=== PATIENT | female | born 1945 | race Caucasian/White ===

== ENCOUNTER 2018-03-14 18:56 | Inpatient (IN) | payer BC, MEDICARE ==
[2018-03-14] MEDS ORDERED: NITROGLYCERIN-D5W PMX 50 MG in DEXTROSE/WATER 1 250ML.BAG IV ONE (19:06)
--- NOTE | 2018-03-14 19:14 | ED ---
General Adult HPI - General Stated complaint: Chest Pain Time Seen by Provider: 03/14/18 19:06 Source: patient, RN notes reviewed Mode of arrival: ambulatory Limitations: no limitations - History of Present Illness Initial comments: This is a 72-year-old female presents emergency department via EMS from [facility] for chest pain. Patient states she developed chest pain while shopping earlier today states that she did not feel well states the pain radiated to her back. Patient does have a history of a stent and SD. Patient states that she does have hyperlipidemia, diabetes and hypertension. Patient was seen at [facility] had CT of her chest abdomen there is no evidence of dissection. Patient was given Rocephin for urinary tract infection was given heparin. Patient was given sublingual nitro though her pressure dropped down to systolic 110, and patient was placed on nitro paste at this time. Patient's found to be hypertensive 07 nitro drip. Patient denies any shortness but has some mild discomfort. Patient also negative feel dizzy earlier today. - Related Data Home Medications Medication Instructions Recorded Confirmed Aspirin 81 mg PO DAILY 01/31/14 01/01/16 Clopidogrel [Plavix] 75 mg PO DAILY 01/31/14 01/01/16 Ergocalciferol [Vitamin D2 50,000 units PO Q30D 01/31/14 12/30/15 (DRISDOL)] Ezetimibe [Zetia] 10 mg PO DAILY 01/31/14 01/01/16 Glimepiride [Amaryl] 2 mg PO DAILY 01/31/14 01/01/16 Hydrochlorothiazide [Hydrodiuril] 25 mg PO DAILY 01/31/14 01/01/16 Levothyroxine Sodium [Synthroid] 125 mcg PO PC-BRKFST 01/31/14 01/01/16 Liraglutide [Victoza 2-Luiz] 1.8 mg SQ PC-BRKFST 01/31/14 01/01/16 Lisinopril 40 mg PO DAILY 01/31/14 01/01/16 Metoprolol Succinate [Toprol XL] 100 mg PO DAILY 01/31/14 01/01/16 Rosuvastatin [Crestor] 20 mg PO DAILY 01/31/14 01/01/16 Dapagliflozin Propanediol [Farxiga] 10 mg PO DAILY 11/19/15 01/01/16 Furosemide [Lasix] 10 mg PO DAILY 12/30/15 01/01/16 metFORMIN HCL [Glucophage] 500 mg PO BID 12/30/15 12/30/15 Allergies Allergy/AdvReac Type Severity Reaction Status Date / Time hydromorphone HCl Allergy RESPIRATORY Verified 03/14/18 19:49 [From Dilaudid] DEPRESSION Review of Systems ROS Statement: Those systems with pertinent positive or pertinent negative responses have been documented in the HPI. ROS Other: All systems not noted in ROS Statement are negative. Past Medical History Past Medical History: Diabetes Mellitus, Hyperlipidemia, Hypertension, Myocardial Infarction (non Q-wave), Osteoarthritis (OA), Thyroid Disorder, Vascular Disorder Additional Past Medical History / Comment(s): 2000HX ASHD, pad,intermittent claudication involving infra renal aorta and rt and lt common iliac arteries( had stents palced). HX NUMBNESS NIRAV FEET- RT IS WORSE , CATARACTS, Last Myocardial Infarction Date:: 2000 History of Any Multi-Drug Resistant Organisms: None Reported Past Surgical History: Adenoidectomy, Heart Catheterization With Stent, Tonsillectomy, Tubal Ligation Additional Past Surgical History / Comment(s): EXP. LAP 02/2012, STENT TO HEART X1, INFRARENAL AORTA STENT, STENTS TO RIGHT AND LEFT COMMONI ILLIAC ARTERIES. AORTOGRAM WITH RUNOFF 02/02/14 @ [facility] Past Anesthesia/Blood Transfusion Reactions: No Reported Reaction Date of Last Stent Placement:: 2000 Smoking Status: Former smoker - Past Family History Mother Family Medical History: Dementia Additional Family Medical History / Comment(s): HEART PROBLEMS Father Family Medical History: Coronary Artery Disease (CAD), Myocardial Infarction (SD ) General Exam General appearance: alert, in no apparent distress Head exam: Present: atraumatic, normocephalic, normal inspection Eye exam: Present: normal appearance, PERRL, EOMI. Absent: scleral icterus, conjunctival injection, periorbital swelling Respiratory exam: Present: normal lung sounds bilaterally. Absent: respiratory distress, wheezes, rales, rhonchi, stridor Cardiovascular Exam: Present: regular rate, normal rhythm, normal heart sounds. Absent: systolic murmur, diastolic murmur, rubs, gallop, clicks GI/Abdominal exam: Present: soft, normal bowel sounds. Absent: distended, tenderness, guarding, rebound, rigid Course Vital Signs 03/14/1818 18 19:06 19:12 19:42 Temperature 98.3 F Pulse Rate 95 97 98 Respiratory 18 18 18 Rate Blood Pressure 224/91 200/83 161/74 O2 Sat by Pulse 97 95 96 Oximetry Medical Decision Making - Medical Decision Making 72-year-old female percent for transfer for chest pain. Patient will be admitted on heparin and nitro drip and will be scheduled for cardiac cath. Disposition Clinical Impression: Unstable angina, Hypertension Disposition: ADMITTED IP TO THIS HOSP Condition: Stable Time of Disposition: 19:14
[2018-03-14] MEDS ORDERED: HEPARIN SODIUM,PORCINE/D5W PMX 25,000 UNIT in DEXTROSE/WATER 1 500ML.BAG IV SCH (19:15)
[2018-03-14 21:02] LABS: Glucose,Whole Blood 158 mg/dL (75-99)
[2018-03-14 21:29] LABS: Creatine Kinase 29 U/L (30-135)
[2018-03-14 21:41] LABS: Creatine Kinase MB <0.2 ng/mL (0.0-2.4); Troponin I <0.012 ng/mL (0.000-0.034)
[2018-03-15 03:58] LABS: HCT 32.6 % (34.0-46.0); HGB 10.9 gm/dL (11.4-16.0); MCH 28.9 pg (25.0-35.0); MCHC 33.4 g/dL (31.0-37.0); MCV 86.3 fL (80.0-100.0); Mean Platelet Volume 6.7; Platelet Count 236 k/uL (150-450); RBC 3.78 m/uL (3.80-5.40); RDW 13.6 % (11.5-15.5); WBC 7.3 k/uL (3.8-10.6)
[2018-03-15 04:27] LABS: Creatine Kinase 27 U/L (30-135)
[2018-03-15 04:29] LABS: Calcium 9.1 mg/dL (8.4-10.2); Potassium 4.4 mmol/L (3.5-5.1)
[2018-03-15 04:36] LABS: Creatine Kinase MB <0.2 ng/mL (0.0-2.4); Troponin I <0.012 ng/mL (0.000-0.034)
[2018-03-15] MEDS ORDERED: ASPIRIN 325 MG TAB PO SCH (09:00)
[2018-03-15] MEDS ORDERED: ATORVASTATIN 80 MG TAB PO STA (09:15)
[2018-03-15] MEDS ORDERED: NITROGLYCERIN SL TABS 0.4 MG TAB SUBLINGUAL PRN (09:15)
[2018-03-15] MEDS ORDERED: ALPRAZolam 0.25 MG TAB PO PRN (09:15)
[2018-03-15] MEDS ORDERED: SODIUM CHLORIDE 0.9% 1,000 ML in EMPTY BAG 1 BAG IV ONE (09:15)
[2018-03-15] MEDS ORDERED: ASPIRIN 325 MG TAB PO STA (09:15)
[2018-03-15] MEDS ORDERED: ALPRAZolam 0.5 MG TAB PO PRN (09:15)
--- NOTE | 2018-03-15 09:23 | P.HPCAR ---
History of Present Illness H&P Date: 03/15/18 Chief Complaint: Chest pain This is a pleasant 72-year-old female with history of diabetes, hypertension, hyperlipidemia, hypothyroidism, inferior OH in 2001 at which time she underwent RCA stenting, peripheral vascular disease with bilateral severe aortic iliac stenosis for which patient underwent arthrectomy of the left SFA, successful balloon angioplasty of the left SFA in October 2015, patient also underwent balloon angioplasty of the right SFA with successful stenting of the right SFA with good angiographic results. She follows with Dr. VC Flores in the office. Patient presented to [facility] with symptoms of chest discomfort. She states that she developed a sharp pain in the left side of her chest, but also had a significant heaviness which radiated through to her back. She was out shopping, on returning home she did a few errands, symptoms again returned and for this reason she presented to [facility]. EKG on presentation showed a sinus tachycardia with nonspecific ST-T wave changes, chest x-ray did not reveal any acute changes. CT of the chest was also performed which did not reveal any evidence of aortic dissection, intramural hematoma, aortic aneurysm or PE, severe atherosclerosis of the abdominal aorta and its branches, possible fibrosis. White blood cell count 8.9 , hemoglobin 12.1, platelet count 254. She possibly sodium 133, potassium 4.4, BUN 26, creatinine 0.9, magnesium 1.1, troponin 0.03, free T4 2.8. EKG on arrival here shows a normal sinus rhythm with nonspecific ST-T wave changes noted in the inferior leads. White blood cell count 7.3, hemoglobin 10.9, platelet count 236. Sodium 136, potassium 4.4, BUN 23, creatinine 0.9. Troponins here have been negative 2. Cholesterol 152, triglycerides 121, LDL 89, HDL 39. At the time of my examination this morning, she is currently chest pain-free. On IV heparin and IV nitroglycerin drip. Her home medications include 6 toes, study at 10 mg daily, hydrochlorothiazide, lisinopril 40 daily, Synthroid 125 g daily, Plavix 75 mg daily, metoprolol 100 daily, aspirin 81 mg daily, metformin 500 mg twice a day, glimepiride and Lipitor 40 mg daily. Physical Exam Vitals: Vital Signs Temp Pulse Pulse Resp BP BP Pulse Ox 03/15/18 07:43 98.2 F 97 16 130/67 97 03/15/18 04:00 97.1 F L 94 16 106/64 96 03/15/18 00:00 98.1 F 104 H 16 139/66 94 L 03/14/18 20:16 98 18 146/68 96 03/14/18 20:07 98.1 F 95 16 135/65 95 03/14/18 19:42 98 18 161/74 96 03/14/18 19:14 95 03/14/18 19:12 97 18 200/83 95 03/14/18 19:06 98.3 F 95 18 224/91 97 Intake and Output 03/14/18 03/15/18 03/15/18 22:59 06:59 14:59 Intake Total 360 217.991 Balance 360 217.991 Intake: Intake, IV Titration 217.991 Amount Heparin Sodium,Porcine/ 217.991 D5w Pmx 25,000 unit In Dextrose/Water 1 500ml. bag @ 12 UNITS/KG/HR 19. 15 mls/hr IV .Q24H [facility] Rx #:[id number] Oral 360 Other: # Voids 1 Weight 79.2 kg 79.2 kg PHYSICAL EXAMINATION: GENERAL: 72-year-old female in no apparent distress at the time of my examination HEENT: Head is atraumatic, normocephalic. Pupils equal, round. Sclera anicteric. Conjunctiva are clear. Mucous membranes of the mouth are moist. Neck is supple. There is no elevated jugular venous pressure.] bruit is heard. HEART EXAMINATION: Heart S1, S2 normal. No murmur or gallop heard. CHEST EXAMINATION: Lungs are clear to auscultation and precussion. No chest wall tenderness is noted on palpation or with deep breathing. ABDOMEN: Soft, nontender. Bowel sounds are heard. No organomegaly noted. EXTREMITIES: 1+ peripheral pulses with no evidence of peripheral edema and no calf tenderness noted. NEUROLOGIC patient is awake, alert and oriented -3. . Past Medical History Past Medical History: Chest Pain / Angina, Diabetes Mellitus, Hyperlipidemia, Hypertension, Myocardial Infarction (non Q-wave), Osteoarthritis (OA), Thyroid Disorder, Vascular Disorder Additional Past Medical History / Comment(s): 2000 HX ASHD, pad, intermittent claudication involving infra renal aorta and rt and lt common iliac arteries ( had stents palced), bilat cataracts, glaucoma L eye with stent. Last Myocardial Infarction Date:: 2000 History of Any Multi-Drug Resistant Organisms: None Reported Past Surgical History: Adenoidectomy, Heart Catheterization With Stent, Tonsillectomy, Tubal Ligation Additional Past Surgical History / Comment(s): EXP. LAP 02/2012, STENT TO HEART X1, INFRARENAL AORTA STENT, STENTS TO RIGHT AND LEFT COMMONI ILLIAC ARTERIES. AORTOGRAM WITH RUNOFF 02/02/14 @ [facility] Past Anesthesia/Blood Transfusion Reactions: No Reported Reaction Additional Past Anesthesia/Blood Transfusion Reaction / Comment(s): pt states she has never had a blood transfusion Date of Last Stent Placement:: 2000 Past Psychological History: No Psychological Hx Reported Smoking Status: Former smoker Past Alcohol Use History: Occasional Additional Past Alcohol Use History / Comment(s): STARTED SMOKING AGE 28 (1964) , QUIT 2003, SMOKED 2PPD Past Drug Use History: None Reported - Past Family History Mother Family Medical History: Dementia Additional Family Medical History / Comment(s): HEART PROBLEMS Father Family Medical History: Coronary Artery Disease (CAD), Myocardial Infarction (OH ) Physical Examination Vital Signs Temp Pulse Pulse Resp BP BP Pulse Ox 03/15/18 07:43 98.2 F 97 16 130/67 97 03/15/18 04:00 97.1 F L 94 16 106/64 96 03/15/18 00:00 98.1 F 104 H 16 139/66 94 L 03/14/18 20:16 98 18 146/68 96 03/14/18 20:07 98.1 F 95 16 135/65 95 03/14/18 19:42 98 18 161/74 96 03/14/18 19:14 95 03/14/18 19:12 97 18 200/83 95 03/14/18 19:06 98.3 F 95 18 224/91 97 Intake and Output 03/14/18 03/15/18 03/15/18 22:59 06:59 14:59 Intake Total 360 217.991 Balance 360 217.991 Intake: Intake, IV Titration 217.991 Amount Heparin Sodium,Porcine/ 217.991 D5w Pmx 25,000 unit In Dextrose/Water 1 500ml. bag @ 12 UNITS/KG/HR 19. 15 mls/hr IV .Q24H [facility] Rx #:[id number] Oral 360 Other: # Voids 1 Weight 79.2 kg 79.2 kg Results 03/15/18 03:32 03/15/18 03:32 Cardiac Enzymes 03/14/18 03/15/18 Range/Units 20:58 03:32 CK-MB (CK-2) <0.2 <0.2 (0.0-2.4) ng/mL Troponin I <0.012 <0.012 (0.000-0.034) ng/mL Coagulation 03/14/18 03/15/18 Range/Units 22:32 06:02 APTT 51.6 H 42.7 H (22.0-30.0) sec Lipids 03/15/18 Range/Units 03:32 Triglycerides 121 (<150) mg/dL Cholesterol 152 (<200) mg/dL HDL Cholesterol 39 L (40-60) mg/dL CBC 03/15/18 Range/Units 03:32 WBC 7.3 (3.8-10.6) k/uL RBC 3.78 L (3.80-5.40) m/uL Hgb 10.9 L (11.4-16.0) gm/dL Hct 32.6 L (34.0-46.0) % Plt Count 236 (150-450) k/uL Comprehensive Metabolic Panel 03/15/18 Range/Units 03:32 Sodium 136 L (137-145) mmol/L Potassium 4.4 (3.5-5.1) mmol/L Chloride 103 (98-107) mmol/L Carbon Dioxide 23 (22-30) mmol/L BUN 23 H (7-17) mg/dL Creatinine 0.90 (0.52-1.04) mg/dL Glucose 199 H (74-99) mg/dL Calcium 9.1 (8.4-10.2) mg/dL Current Medications Generic Name Dose Route Start Last Admin Trade Name Freq PRN Reason Stop Dose Admin Aspirin 325 mg 03/15/18 09:00 Aspirin PO DAILY ANGELICA Heparin Sodium/Dextrose 25,000 500 mls @ 19.15 mls/hr 03/14/18 19:15 07:03 unit/ IV Solution IV 14 units/kg/hr .Q24H ANGELICA 22.35 mls/hr Protocol Titration 12 UNITS/KG/HR Nitroglycerin/Dextrose 50 mg/ 250 mls @ 3 mls/hr 03/14/18 19:06 03/14/18 19: 21 IV Solution IV 03/15/18 19:05 10 mcg/min .Q24H ONE 3 mls/hr Protocol Administration 10 MCG/MIN Intake and Output 03/14/18 03/15/18 03/15/18 22:59 06:59 14:59 Intake Total 360 217.991 Balance 360 217.991 Intake: Intake, IV Titration 217.991 Amount Heparin Sodium,Porcine/ 217.991 D5w Pmx 25,000 unit In Dextrose/Water 1 500ml. bag @ 12 UNITS/KG/HR 19. 15 mls/hr IV .Q24H [facility] Rx #:[id number] Oral 360 Other: # Voids 1 Weight 79.2 kg 79.2 kg 03/15/18 03:32 03/15/18 03:32 EKG Interpretations (text) EKG shows normal sinus rhythm with nonspecific ST-T wave changes in the inferior leads. Assessment and Plan Assessment: Assessment and plan #1 chest discomfort with radiation to the back suggestive of possible angina. Troponins negative 3. EKG shows normal sinus rhythm with nonspecific ST-T wave changes in the inferior leads. #2 known history of coronary artery disease with prior inferior wall myocardial infarction in 2001 with stenting of the RCA #3 peripheral vascular disease with prior stenting #4 hypertension # 5 diabetes #6 hyperlipidemia #7 prior history of nicotine dependence Plan We will obtain an echocardiogram with Doppler study. Continue IV heparin and nitroglycerin drips. We will resume the patient's home medications. Patient will be scheduled to undergo cardiac catheterization today by Dr. Arreguin. The risks and the benefits were explained to the patient in detail and she is willing to proceed. Further recommendations will be based on these findings and the patient's clinical course. DNP note has been reviewed, I agree with a documented findings and plan of care. Patient was seen and examined.
[2018-03-15] MEDS ORDERED: ERGOCALCIFEROL 50,000 UNIT CAP PO SCH (09:30)
[2018-03-15] MEDS ORDERED: Liraglutide [Victoza 2-Pak] 1.8 MG SQ SCH (09:30)
[2018-03-15] MEDS: LEVOTHYROXINE 125 MCG TAB PO SCH (09:59)
[2018-03-15] MEDS: METOPROLOL SUCCINATE (ER) 100 MG TAB.ER.24H PO SCH (10:00)
[2018-03-15] MEDS: LISINOPRIL 20 MG TAB PO SCH (10:00)
[2018-03-15 10:51] LABS: Glucose,Whole Blood 221 mg/dL (75-99)
--- NOTE | 2018-03-15 13:08 | ECHOF ---
Referral Reason:chest pain MEASUREMENTS -------- HEIGHT: 157.5 cm WEIGHT: 78.9 kg BP: IVSd: 1.3 cm (0.6 - 1.1) LVIDd: 2.9 cm (3.9 - 5.3) LVPWd: 1.2 cm (0.6 - 1.1) IVSs: 1.6 cm LVIDs: 1.8 cm LVPWs: 1.6 cm Ao Diam: 2.9 cm (2.0 - 3.7) AV Cusp: 1.0 cm (1.5 - 2.6) LA Diam: 3.4 cm (2.7 - 3.8) MV E Bennie: 1.02 m/s MV DecT: 112 ms MV A Bennie: 1.65 m/s MV E/A Ratio: 0.62 AV maxP.27 mmHg AV meanP.81 mmHg RAP: 5.00 mmHg RVSP: 13.77 mmHg FINDINGS -------- Sinus rhythm. This was a technically adequate study. The left ventricular size is normal. There is mild concentric left ventricular hypertrophy. Overa ll left ventricular systolic function is normal with, an EF between 55 - 60 %. The right ventricle is normal in size and function. The left atrium is normal in size. The right atrium is normal in size. Aortic valve is trileaflet and is mildly thickened. There is mild aortic stenosis present. Peak/m kleber gradient across the Aortic Valve is 17.27mmHg / 11.81mmHg. The mitral valve leaflets are mildly thickened. Mild mitral regurgitation is present. Mild tricuspid regurgitation present. The right ventricular systolic pressure, as measured by Doppl er, is 13.77mmHg. Pulmonic valve appears structurally normal. Normal inferior vena cava with normal inspiratory collapse consistent with estimated right atrial pre ssure of 5 mmHg. The pericardium is normal. CONCLUSIONS -------- 1. Sinus rhythm. 2. This was a technically adequate study. 3. The left ventricular size is normal. 4. There is mild concentric left ventricular hypertrophy. 5. Overall left ventricular systolic function is normal with, an EF between 55 - 60 %. 6. The right ventricle is normal in size and function. 7. The left atrium is normal in size. 8. The right atrium is normal in size. 9. Aortic valve is trileaflet and is mildly thickened. 10. There is mild aortic stenosis present. 11. Peak/mean gradient across the Aortic Valve is 17.27mmHg / 11.81mmHg. 12. The mitral valve leaflets are mildly thickened. 13. Mild mitral regurgitation is present. 14. Mild tricuspid regurgitation present. 15. The right ventricular systolic pressure, as measured by Doppler, is 13.77mmHg. 16. Pulmonic valve appears structurally normal. 17. Normal inferior vena cava with normal inspiratory collapse consistent with estimated right atrial pressure of 5 mmHg. 18. The pericardium is normal. PARKING WORKER: Ann Sanderson RDCS
[2018-03-15] MEDS ORDERED: FLUID CONTINUATION IV ONE ×2 (13:15)
[2018-03-15] MEDS ORDERED: NITROGLYCERIN D5W PMX IV ONE ×2 (13:15)
[2018-03-15] MEDS ORDERED: IV FLUID CONTINUATION 1,000 ML IV ONE (13:24)
[2018-03-15] MEDS ORDERED: MIDAZOLAM 2 MG/2 ML VIAL IV ONE (13:30)
[2018-03-15] MEDS ORDERED: VERAPAMIL SYRINGE (5 MG/10 ML) INTRAARTER ONE (13:36)
[2018-03-15] MEDS ORDERED: LIDOCAINE 2% SYG (PF) 100 MG/5 ML MISCELLANE ONE (13:36)
[2018-03-15] MEDS ORDERED: HEPARIN SODIUM 1,000 UN/ML (10ML VL) IV ONE (13:37)
[2018-03-15] MEDS ORDERED: IOPAMIDOL-370 125ML BTL INJ ONE (13:53)
[2018-03-15] MEDS ORDERED: RX INFO: IV CONTRAST WAS GIVEN 1 EACH MISC MISCELLANE PRN (13:54)
[2018-03-15] MEDS ORDERED: SODIUM CHLORIDE 0.9% 500 ML IV ONE (13:54)
[2018-03-15] MEDS ORDERED: SODIUM CHLORIDE 0.9% 1,000 ML IV SCH (14:00)
--- NOTE | 2018-03-15 14:23 | CC ---
CARDIAC CATHETERIZATION REPORT DATE OF SERVICE: March 15, 2018 PERFORMING PHYSICIAN: Berto Jeffries MD, conservator artifacts. PROCEDURE PERFORMED: Selective right and left coronary angiogram. INDICATION: This is a pleasant 72-year-old female patient who sees Dr. Maureen Flores in the office. I did perform a peripheral intervention on her in the past, presented to the hospital with chest discomfort. She was ruled out for acute coronary event. She was brought today to undergo a heart catheterization. APPROACH: Right radial artery. COMPLICATION: None. LEVEL OF SEDATION: Moderate with sedation length of 17 minutes. PROCEDURE DESCRIPTION: After obtaining an informed consent, the patient was brought to cardiac labor relations manager. The right radial artery was cannulated using micropuncture technique and a micropuncture wire passed easily. Then I placed a 6-Hebrew sheath in the right radial artery. After that, I did give the patient 2 mg of verapamil IA and 8,000 units of heparin IV. I did selective right and left coronary angiogram using JR4 and JL3.5 catheters. The procedure was completed without any complication. SELECTIVE CORONARY ANGIOGRAM: 1. The right coronary artery is a medium caliber vessel and it is a nondominant vessel. The proximal RCA has appeared to be angiographically normal. The mid RCA has intermediate lesion, appeared to be in the range of 50% and distal to that lesion the RCA is stented and the stent is patent. 2. The left main is a short left main. Appeared to be angiographically normal. It bifurcates into left circumflex and left anterior descending artery. 3. The circumflex is a large caliber vessel. It is a nondominant vessel. The proximal circ gives rise into a large first OM branch which has an ostial lesion appeared to be in the range of 70%. The circ itself by the bifurcation of the OM has another lesion appeared to be in the range of 70%. The circ after that continues as a small-caliber vessel in the AV groove and gives rise into a second OM which appears to be angiographically normal. 4. The LAD: The proximal LAD appeared to have mild disease only. The mid LAD appeared to have intermediate lesion appeared to be in the range of 50%. The LAD distally appeared to have mild disease only. The LAD itself is not that big. Gives rise into multiple diagonal branches, which seems to be angiographically normal. CONCLUSION: 1. Intermediate disease involving the mid RCA. The RCA stent distal to that lesion seems to be patent. 2. Normal left main coronary artery. 3. Intermediate to severe disease involving the first obtuse marginal branch of the left circumflex and the lesion appeared to be involving the left circumflex itself. 4. Intermediate diffuse disease involving the LAD. POSTPROCEDURE MANAGEMENT: With the anatomy and the OM lesion involving the true circ, I would recommend maximized medical treatment at this point of time. If the patient continues to have chest discomfort, I will consider doing a PCI of the OM of the first obtuse marginal branch of the left circumflex. MMTAMRAL / IJN: [id number] /
[2018-03-15] MEDS: Liraglutide [Victoza 2-Pak] 1.8 MG SQ SCH (14:40)
[2018-03-15 16:44] LABS: Glucose,Whole Blood 252 mg/dL (75-99)
[2018-03-15 21:11] LABS: Hemoglobin A1C 9.2 % (4.0-6.0)
[2018-03-15 21:32] LABS: Glucose,Whole Blood 197 mg/dL (75-99)
[2018-03-15 22:02] VITALS: RESP 18
[2018-03-16 06:05] LABS: Glucose,Whole Blood 168 mg/dL (75-99)
[2018-03-16] MEDS: LEVOTHYROXINE 125 MCG TAB PO SCH (08:16)
[2018-03-16] MEDS: METOPROLOL SUCCINATE (ER) 100 MG TAB.ER.24H PO SCH (08:17)
[2018-03-16] MEDS: LISINOPRIL 20 MG TAB PO SCH (08:18)
[2018-03-16] MEDS: Liraglutide [Victoza 2-Pak] 1.8 MG SQ SCH (08:29)
[2018-03-16] MEDS ORDERED: CLOPIDOGREL 75 MG TAB PO SCH (09:00)
[2018-03-16] MEDS ORDERED: ATORVASTATIN 40 MG TAB PO SCH (09:00)
[2018-03-16] MEDS ORDERED: GLIMEPIRIDE 2 MG TAB PO SCH (09:00)
[2018-03-16] MEDS ORDERED: HYDROCHLOROTHIAZIDE 25 MG TAB PO SCH (09:00)
[2018-03-16] MEDS ORDERED: EZETIMIBE 10 MG TAB PO SCH (09:00)
[2018-03-16] MEDS ORDERED: ASPIRIN 325 MG TAB PO SCH (09:00)
[2018-03-16 11:31] LABS: Glucose,Whole Blood 121 mg/dL (75-99)
[2018-03-16 12:02] VITALS: BMI 31.8
--- NOTE | 2018-03-16 13:19 | P.DS ---
Providers Date of admission: 03/14/18 19:10 Attending physician: Leola Flores Consults: 03/14/18 19:50 Consult Physician Urgent Consulting Provider: Leola Flores Consult Reason/Comments: Chest pain Do you want consulting provider notified?: Yes Primary care physician: Vaibhav Ac MD Hospital Course: This is a pleasant 72-year-old female with history of diabetes, hypertension, hyperlipidemia, hypothyroidism, inferior IN in 2001 at which time she underwent RCA stenting, peripheral vascular disease with bilateral severe aortic iliac stenosis for which patient underwent arthrectomy of the left SFA, successful balloon angioplasty of the left SFA in October 2015, patient also underwent balloon angioplasty of the right SFA with successful stenting of the right SFA with good angiographic results. She follows with Dr. VC Flores in the office. Patient presented to [facility] with symptoms of chest discomfort. She states that she developed a sharp pain in the left side of her chest, but also had a significant heaviness which radiated through to her back. She was out shopping, on returning home she did a few errands, symptoms again returned and for this reason she presented to [facility]. EKG on presentation showed a sinus tachycardia with nonspecific ST-T wave changes, chest x-ray did not reveal any acute changes. CT of the chest was also performed which did not reveal any evidence of aortic dissection, intramural hematoma, aortic aneurysm or PE, severe atherosclerosis of the abdominal aorta and its branches, possible fibrosis. White blood cell count 8.9 , hemoglobin 12.1, platelet count 254. She possibly sodium 133, potassium 4.4, BUN 26, creatinine 0.9, magnesium 1.1, troponin 0.03, free T4 2.8. EKG on arrival here shows a normal sinus rhythm with nonspecific ST-T wave changes noted in the inferior leads. White blood cell count 7.3, hemoglobin 10.9, platelet count 236. Sodium 136, potassium 4.4, BUN 23, creatinine 0.9. Troponins here have been negative 2. Cholesterol 152, triglycerides 121, LDL 89, HDL 39. At the time of my examination this morning, she is currently chest pain-free. On IV heparin and IV nitroglycerin drip. Her home medications include 6 toes, study at 10 mg daily, hydrochlorothiazide, lisinopril 40 daily, Synthroid 125 g daily, Plavix 75 mg daily, metoprolol 100 daily, aspirin 81 mg daily, metformin 500 mg twice a day, glimepiride and Lipitor 40 mg daily. 03/16/2018 Patient underwent a cardiac catheterization yesterday by Dr. Jeffries which revealed intermediate disease involving the mid right coronary artery. The right coronary artery stent distal to the lesion seemed to be patent. Normal left main coronary artery. Intermediate to severe disease involving the first obtuse marginal branch of the left circumflex and the lesion appeared to be involving the left circumflex itself. Intermediate diffuse disease involving the LAD. With the anatomy of the OM lesion, involving the true circumflex the recommendation was to maximize medical therapy at this point in time. If patient has recurrent chest discomfort and the decision to undergo PCI would be made. She was seen and examined today, we had her up ambulating in the hallway most of the morning, she denies any chest discomfort and her breathing overall has been stable. Blood pressure 118/70 with a heart rate in the 80s, 93% on room air. She may be able to be discharged home today on aspirin 81 mg daily, Lipitor 80 we will increase to 80 mg daily, Plavix 75 mg daily, Zetia 10 mg daily, Amaryl 2 mg daily, Hydrodiuril 25 mg daily, Synthroid 125 g daily, Pitocin, Zestril 40 mg daily, metoprolol tartrate 100 mg daily, Lantus small dose of Imdur to her medication regime and provide sublingual nitroglycerin appointment discharge. Patient Condition at Discharge: Stable Plan - Discharge Summary Discharge Rx Participant: No New Discharge Prescriptions: New Isosorbide Mononitrate ER [Imdur] 15 mg PO DAILY #30 dose Nitroglycerin Sl Tabs [Nitrostat] 0.4 mg SUBLINGUAL Q5M PRN #25 tab PRN Reason: Chest Pain Continue Lisinopril 40 mg PO DAILY Liraglutide [Victoza 2-Luiz] 1.8 mg SQ PC-BRKFST Levothyroxine Sodium [Synthroid] 125 mcg PO PC-BRKFST Hydrochlorothiazide [Hydrodiuril] 25 mg PO DAILY Glimepiride [Amaryl] 2 mg PO DAILY Ezetimibe [Zetia] 10 mg PO DAILY Ergocalciferol [Vitamin D2 (DRISDOL)] 50,000 units PO Q15D Clopidogrel [Plavix] 75 mg PO DAILY Aspirin 81 mg PO DAILY Metoprolol Succinate [Toprol XL] 100 mg PO DAILY metFORMIN HCL [Glucophage] 500 mg PO BID #0 Changed Atorvastatin [Lipitor] 80 mg PO DAILY #60 tab Discharge Medication List Aspirin 81 mg PO DAILY 01/31/14 [History] Clopidogrel [Plavix] 75 mg PO DAILY 01/31/14 [History] Ergocalciferol [Vitamin D2 (DRISDOL)] 50,000 units PO Q15D 01/31/14 [History] Ezetimibe [Zetia] 10 mg PO DAILY 01/31/14 [History] Glimepiride [Amaryl] 2 mg PO DAILY 01/31/14 [History] Hydrochlorothiazide [Hydrodiuril] 25 mg PO DAILY 01/31/14 [History] Levothyroxine Sodium [Synthroid] 125 mcg PO PC-BRKFST 01/31/14 [History] Liraglutide [Victoza 2-Luiz] 1.8 mg SQ PC-BRKFST 01/31/14 [History] Lisinopril 40 mg PO DAILY 01/31/14 [History] Metoprolol Succinate [Toprol XL] 100 mg PO DAILY 01/31/14 [History] Atorvastatin [Lipitor] 80 mg PO DAILY #60 tab 03/16/18 [Rx] Isosorbide Mononitrate ER [Imdur] 15 mg PO DAILY #30 dose 03/16/18 [Rx] Nitroglycerin Sl Tabs [Nitrostat] 0.4 mg SUBLINGUAL Q5M PRN #25 tab 03/16/18 [Rx ] metFORMIN HCL [Glucophage] 500 mg PO BID #0 03/16/18 [Rx] Follow up Appointment(s)/Referral(s): Vaibhav Ac MD [Primary Care Provider] - 1-2 days (Spoke to corrugator operator helper. Office will call with appointment time) Berto Jeffries MD [STAFF PHYSICIAN] - 03/22/18 1:15 pm (Wednesday) Patient Instructions/Handouts: *Surgery [facility] - After Heart Catheterization - Improvement Director Instructions, Left Heart Catheterization (DC) Activity/Diet/Wound Care/Special Instructions: cardiology cleared
[2018-03-16 13:40] VITALS: PULSE 84
[2018-03-16 13:50] VITALS: BP 153/68; TEMP 97
== END 2018-03-16 14:36 | disposition home or self-care (01) | DRG 287 ==
LOC: EC 18:56 → 6SEL 19:10 → OBSVTOIN 19:10 → 6SEL 20:41
PROVIDERS: ADMIT Internal Medicine Cardiovascular Disease; ATTEND Internal Medicine Cardiovascular Disease
PROC: B2111ZZ Fluoroscopy of Multiple Coronary Arteries using Low Osmolar Contrast (ICD-10-PCS; 2018-03-15)
PROC: 4A023N7 Measurement of Cardiac Sampling and Pressure, Left Heart, Percutaneous Approach (ICD-10-PCS; principal; 2018-03-15 13:15)
DX: I25.10 Atherosclerotic heart disease of native coronary artery without angina pectoris (principal); I10 Essential (primary) hypertension; Z95.5 Presence of coronary angioplasty implant and graft; Z87.891 Personal history of nicotine dependence; E03.9 Hypothyroidism, unspecified; E11.51 Type 2 diabetes mellitus with diabetic peripheral angiopathy without gangrene; E78.5 Hyperlipidemia, unspecified; H40.9 Unspecified glaucoma; I25.2 Old myocardial infarction; Z79.02 Long term (current) use of antithrombotics/antiplatelets; Z79.82 Long term (current) use of aspirin; Z79.84 Long term (current) use of oral hypoglycemic drugs; Z79.899 Other long term (current) drug therapy; Z82.49 Family history of ischemic heart disease and other diseases of the circulatory system; H26.9 Unspecified cataract; Z95.9 Presence of cardiac and vascular implant and graft, unspecified
CPT/HCPCS: 80048; 80061; 82550; 82553; 83036; 83735; 84484; 85027; 85730; 93306; 93454; 96365; 99285

== ENCOUNTER 2018-11-24 11:23 | Inpatient (IN) | payer MEDICARE ==
--- NOTE | 2018-11-24 12:16 | ED ---
General Adult HPI - General Chief complaint: Syncope Stated complaint: SYNCOPE Time Seen by Provider: 11/24/18 11:35 Source: patient, EMS, RN notes reviewed, old records reviewed (Chart reviewed from [facility]) Mode of arrival: EMS Limitations: no limitations - History of Present Illness Initial comments: Patient is a pleasant 73-year-old female presenting to the emergency department following syncopal episode. Patient states she did have a syncopal episode on the shower this morning. Patient hurt her toenail, otherwise no injury. No chest pain or dyspnea. No headache or confusion. Following this patient did have 2 episodes of near-syncope where she fell down however did not pass out. Patient states she has been fatigued the past couple of days with decreased appetite and oral intake. Patient did have a couple episodes of diarrhea as well. Patient went to [facility]. Patient was transferred here for admission and cardiac evaluation. - Related Data Home Medications Medication Instructions Recorded Confirmed Aspirin 81 mg PO DAILY 01/31/14 11/24/18 Clopidogrel [Plavix] 75 mg PO DAILY 01/31/14 11/24/18 Ergocalciferol [Vitamin D2 50,000 units PO Q15D 01/31/14 11/24/18 (DRISDOL)] Ezetimibe [Zetia] 10 mg PO DAILY 01/31/14 11/24/18 Hydrochlorothiazide [Hydrodiuril] 25 mg PO DAILY 01/31/14 11/24/18 Levothyroxine Sodium [Synthroid] 125 mcg PO -KT 01/31/14 11/24/18 Liraglutide [Victoza 2-Luiz] 1.8 mg SQ -[facility] 01/31/14 11/24/18 Lisinopril 40 mg PO DAILY 01/31/14 11/24/18 Metoprolol Succinate [Toprol XL] 100 mg PO DAILY 01/31/14 11/24/18 Atorvastatin [Lipitor] 80 mg PO DAILY 11/24/18 11/24/18 Glimepiride [Amaryl] 6 mg PO -BRKT 11/24/18 11/24/18 Isosorbide Mononitrate ER [Imdur] 15 mg PO DAILY 11/24/18 11/24/18 Previous Rx's Medication Instructions Recorded Nitroglycerin Sl Tabs [Nitrostat] 0.4 mg SUBLINGUAL Q5M PRN #25 tab 03/16/18 metFORMIN HCL [Glucophage] 500 mg PO BID #0 03/16/18 Allergies Allergy/AdvReac Type Severity Reaction Status Date / Time hydromorphone HCl Allergy RESPIRATORY Verified 11/24/18 11:46 [From Dilaudid] DEPRESSION Review of Systems ROS Statement: Those systems with pertinent positive or pertinent negative responses have been documented in the HPI. ROS Other: All systems not noted in ROS Statement are negative. Constitutional: Denies: fever Eyes: Denies: eye pain ENT: Denies: ear pain Respiratory: Denies: cough Cardiovascular: Denies: chest pain Endocrine: Reports: fatigue Gastrointestinal: Reports: diarrhea. Denies: abdominal pain Genitourinary: Denies: dysuria Musculoskeletal: Denies: back pain Skin: Denies: rash Neurological: Denies: weakness Past Medical History Past Medical History: Chest Pain / Angina, Diabetes Mellitus, Hyperlipidemia, Hypertension, Myocardial Infarction (non Q-wave), Osteoarthritis (OA), Thyroid Disorder, Vascular Disorder Additional Past Medical History / Comment(s): 2000 HX ASHD, pad, intermittent claudication involving infra renal aorta and rt and lt common iliac arteries ( had stents palced), bilat cataracts, glaucoma L eye with stent. Last Myocardial Infarction Date:: 2000 History of Any Multi-Drug Resistant Organisms: None Reported Past Surgical History: Adenoidectomy, Heart Catheterization With Stent, Tonsillectomy, Tubal Ligation Additional Past Surgical History / Comment(s): EXP. LAP 02/2012, STENT TO HEART X1, INFRARENAL AORTA STENT, STENTS TO RIGHT AND LEFT COMMONI ILLIAC ARTERIES. AORTOGRAM WITH RUNOFF 02/02/14 @ [facility] Past Anesthesia/Blood Transfusion Reactions: No Reported Reaction Additional Past Anesthesia/Blood Transfusion Reaction / Comment(s): pt states she has never had a blood transfusion Date of Last Stent Placement:: 2000 Past Psychological History: No Psychological Hx Reported Smoking Status: Former smoker Past Alcohol Use History: Occasional Past Drug Use History: None Reported - Past Family History Mother Family Medical History: Dementia Additional Family Medical History / Comment(s): HEART PROBLEMS Father Family Medical History: Coronary Artery Disease (CAD), Myocardial Infarction (ID ) General Exam Limitations: no limitations General appearance: alert, in no apparent distress Head exam: Present: atraumatic Eye exam: Present: normal appearance, PERRL, EOMI. Absent: nystagmus ENT exam: Present: normal oropharynx Neck exam: Present: normal inspection. Absent: tenderness Respiratory exam: Present: normal lung sounds bilaterally Cardiovascular Exam: Present: regular rate, normal rhythm GI/Abdominal exam: Present: soft. Absent: tenderness Extremities exam: Present: normal inspection, full ROM. Absent: tenderness, pedal edema, calf tenderness Neurological exam: Present: alert, oriented X3, CN II-XII intact. Absent: motor sensory deficit Expanded Neurological exam: Present: protecting the airway Patient oriented to: Present: person, place, time Speech: Present: fluid speech Cranial nerves: EOM's Intact: Normal Sensory exam: Upper Extremity Light Touch: Normal, Lower Extremity Light Touch: Normal Motor strength exam: RUE: 5, LUE: 5, RLE: 5, LLE: 5 Eye Response: (4) open spontaneously Motor Response: (6) obeys commands Verbal Response: (5) oriented Psychiatric exam: Present: normal affect, normal mood Skin exam: Present: normal color Course Vital Signs 11/24/18 11:27 Temperature 97.8 F Pulse Rate 90 Respiratory 20 Rate Blood Pressure 149/71 O2 Sat by Pulse 97 Oximetry EKG Findings - EKG Comments: EKG Findings:: Normal sinus rhythm 87. VT 166. QRS 86. QT 402. QTC 43. Normal axis. Inferior Q waves. No acute ST change. Medical Decision Making - Medical Decision Making Patient family updated on plan. Dr. joseph has been paged for admission. Covering for Dr. Vaibhav Ac's. Disposition Clinical Impression: Syncope Disposition: ADMITTED IP TO THIS HOSP Is patient prescribed a controlled substance at d/c from ED?: No Referrals: Vaibhav Ac MD [Primary Care Provider] - 1-2 days Decision Time: 12:15
[2018-11-24] MEDS: SODIUM CHLORIDE 0.9% 1,000 ML IV SCH ×2 (12:40→22:15)
[2018-11-24 14:38] LABS: Creatine Kinase MB 2.6 ng/mL (0.0-2.4)
[2018-11-24 14:44] LABS: Troponin I 0.311 ng/mL (0.000-0.034)
[2018-11-24] MEDS ORDERED: HEPARIN SODIUM,PORCINE 5,000 UNIT/ML 1 ML VIAL IV PRN (14:46)
[2018-11-24] MEDS ORDERED: HEPARIN SODIUM,PORCINE 5,000 UNIT/ML 1 ML VIAL IV ONE (14:46)
[2018-11-24] MEDS ORDERED: ASPIRIN 81 MG PO STA (14:46)
[2018-11-24] MEDS: HEPARIN SOD,PORK IN 0.45% NACL 25,000 UNIT in 0.45% NACL 1 250ML.BAG IV SCH (15:27)
--- NOTE | 2018-11-24 15:46 | CT ---
EXAMINATION TYPE: CT angio chest DATE OF EXAM: 11/24/2018 COMPARISON: CT 03/14/2018, chest x-ray 11/24/2018 HISTORY: Elevated D-Dimer. No chest complaints at time of scan CT DLP: 285.5 mGycm Automated exposure control for dose reduction was used. CONTRAST: CTA scan of the thorax is performed with IV Contrast, patient injected with 70 mL of Isovue 370, pulm onary embolism protocol. MIP images are created and reviewed. 3D reconstructed images are created o n an independent workstation and reviewed. FINDINGS: LUNGS: The lungs show no pneumonia, some scattered areas of interlobular septal pleural thickening ar e present especially towards the lung bases.. There is no pleural effusion or pneumothorax seen. T he tracheobronchial tree shows some abnormal soft tissue along the central aspects of the pulmonary a rteries, and veins somewhat perilymphatic distribution specifically axial images #58 through 67 in t he left lower lobe and probable right hilar adenopathy axial image 64. AORTA: Atheromatous changes are again noted. Coronary artery calcifications are dense. No aneurysm o r dissection evident. MEDIASTINUM: There is satisfactory enhancement of the pulmonary artery and its branches, there is no CT evidence for pulmonary embolism. There are no greater than 1 cm mediastinal lymph nodes. No per icardial effusion is seen. OTHER: Some dependent hyperdensity within the gallbladder suggestive of calculi as on prior. Pancrea s appears somewhat dense. There is a hiatal hernia. IMPRESSION: NO EVIDENT PULMONARY EMBOLISM. CONSIDER SARCOIDOSIS, FOLLOW-UP RECOMMENDED. CORONARY ARTERY DISEASE.
--- NOTE | 2018-11-24 16:46 | ECHOF ---
Referral Reason:Syncope MEASUREMENTS -------- HEIGHT: 157.5 cm WEIGHT: 77.6 kg BP: 149/71 RVIDd: 2.6 cm (< 3.3) IVSd: 1.1 cm (0.6 - 1.1) LVIDd: 3.7 cm (3.9 - 5.3) LVPWd: 1.1 cm (0.6 - 1.1) IVSs: 1.3 cm LVIDs: 2.7 cm LVPWs: 1.3 cm LAESV Index (A-L): 12.96 ml/m Ao Diam: 2.9 cm (2.0 - 3.7) AV Cusp: 1.5 cm (1.5 - 2.6) LA Diam: 2.6 cm (2.7 - 3.8) MV E Bennie: 0.88 m/s MV DecT: 492 ms MV A Bennie: 1.38 m/s MV E/A Ratio: 0.64 RAP: 5.00 mmHg RVSP: 32.07 mmHg FINDINGS -------- Sinus rhythm. This was a technically adequate study. The left ventricular size is normal. There is borderline concentric left ventricular hypertrophy. Overall left ventricular systolic function is normal with, an EF between 60 - 65 %. The right ventricle is normal in size and function. Normal LA size by volume 22+/-6 ml/m2. The right atrium is normal in size. Aortic valve is trileaflet and is mildly thickened. There is no evidence of aortic regurgitation. There is no evidence of aortic stenosis. The mitral valve leaflets are mildly thickened. Mild mitral annular calcification present. Mild m itral regurgitation is present. Trace tricuspid regurgitation present. Right ventricular systolic pressure is normal at < 35 mmHg. There is no evidence of pulmonary hypertension. Trace/mild (physiologic) pulmonic regurgitation. The aortic root size is normal. Normal inferior vena cava with normal inspiratory collapse consistent with estimated right atrial pre ssure of 5 mmHg. There is no pericardial effusion. CONCLUSIONS -------- 1. Sinus rhythm. 2. This was a technically adequate study. 3. The left ventricular size is normal. 4. There is borderline concentric left ventricular hypertrophy. 5. Overall left ventricular systolic function is normal with, an EF between 60 - 65 %. 6. Normal LA size by volume 22+/-6 ml/m2. 7. Aortic valve is trileaflet and is mildly thickened. 8. The mitral valve leaflets are mildly thickened. 9. Mild mitral annular calcification present. 10. Mild mitral regurgitation is present. 11. Trace tricuspid regurgitation present. 12. Right ventricular systolic pressure is normal at < 35 mmHg. 13. There is no evidence of pulmonary hypertension. 14. The aortic root size is normal. 15. There is no pericardial effusion. MILL PLATFORM SUPERVISOR: Todd Gore RDCS
[2018-11-24] MEDS ORDERED: NITROGLYCERIN SL TABS 0.4 MG TAB SUBLINGUAL PRN (18:20)
[2018-11-24 20:09] LABS: Creatine Kinase MB 2.1 ng/mL (0.0-2.4)
[2018-11-24 20:21] LABS: Troponin I 0.308 ng/mL (0.000-0.034)
[2018-11-24 21:15] LABS: Glucose,Whole Blood 216 mg/dL (75-99)
--- NOTE | 2018-11-24 23:04 | HP ---
HISTORY AND PHYSICAL DATE OF ADMISSION: 11/24/2018 PRESENTING COMPLAINT: Recurrent syncope. HISTORY OF PRESENTING COMPLAINT: A very pleasant 74-year-old patient of Dr. Vaibhav Ac. Chronic stable medical conditions include diabetes, hypertension, hyperlipidemia, osteoarthritis, hypothyroid, peripheral artery disease, coronary artery disease. The patient had a stent placed over 17 years ago. The patient had gone down to [place] to meet her son one day, came back Wednesday morning. She describes herself was feeling crappy, pretty much been to lay down and slept. Yesterday felt the same way, felt pretty much describing herself as a cramp like a block run down and slept today. She went to the shower, decided to take a shower and then she passed out possibly now for about 10 minutes to try to get up again. She went down when she came out of the shower again started feeling dizzy and again passed out and finally decided to come in with no chest pain, no palpitation. No fever. No chills. . REVIEW OF SYSTEMS: CONSTITUTIONAL: Tired. HEENT: None. RESPIRATORY: None. CARDIOVASCULAR: None. MUSCULOSKELETAL: Arthritic pain in joints. DERMATOLOGICAL, HEMATOLOGIC, LYMPHATIC: None. PSYCHIATRY none. NEUROLOGICAL none. PAST MEDICAL HISTORY: Diabetes mellitus type 2, hypertension, hyperlipidemia, osteoarthritis, hypothyroid, coronary artery disease, peripheral artery disease, intermittent claudication, bilateral cataracts, glaucoma, left eye. PAST SURGICAL HISTORY: Cardiac cath with stent, tonsillectomy, tubal ligation, exploratory laparotomy in 2011, stent to the heart, infrarenal aortic stent, stent to the right left common iliac artery. SOCIAL HISTORY: The patient smoked 2 packs a day for about 40 years, stopped in 2003. . Alcohol occasionally. FAMILY HISTORY: Heart problems with dementia. HOME MEDICATIONS: 1. Glucophage 100 mg p.o. b.i.d. 2. Nitrostat 0.4 sublingual q.5 p.r.n. 3. Toprol-XL 100 mg a day. 4. Lisinopril 40 mg a day. 5. Victoza 2 pack 1.8 mg subcu with breakfast. 6. Synthroid 125 mcg at breakfast. 7. Imdur ER 50 mg p.o. daily. 8. Hydrochlorothiazide 25 mg p.o. daily. 9. Amaryl 6 mg with breakfast. 10.Zetia 10 mg p.o. daily. 11.Vitamin D2 29812 units every 15 days. 12.Plavix 75 mg a day. 13.Lipitor 80 mg a day. 14.Aspirin 81 mg a day. ALLERGIES: To Dilaudid. PHYSICAL EXAMINATION: VITAL SIGNS: Temperature 97.8 pulse respirations 16, blood pressure 140/72, pulse ox 96% on room air general is well built BMI 31.3. Lying in bed a bit tired-appearing. EYES: Pupils are equal and reactive to normal. HEENT external appearance of nose and ears normal. Oral cavity normal. NECK: JVD not raised. Mass not palpable. RESPIRATORY: Effort normal. LUNGS are clear. CARDIOVASCULAR: 1st and 2nd heart sounds are normal. No edema. ABDOMEN: Soft, nontender. Liver and spleen not palpable. LYMPHATIC: No lymph nodes palpable in the neck, axilla and groin. PSYCHIATRY: Alert and oriented x3. Mood and affect normal. NEUROLOGICAL: Pupils equal. Cranial nerves grossly intact. Power and sensation grossly intact. INVESTIGATIONS: Investigations: Troponin 0.3, 0.3, 0.3 and 0.3. EKG tracing personally reviewed by me shows normal sinus rhythm. Q-waves in inferior leads. Chest CTA no pulmonary embolism. ASSESSMENT: 1. In this patient with known coronary artery disease, for 2 days, felt extremely weak, tired and run down with multiple episodes of passing out. This could be from underlying ischemia and associated arrhythmia. The patient will need a cardiac catheterization. 2. Diabetes mellitus type 2 on oral hypoglycemic. 3. Essential hypertension. 4. Hyperlipidemia. 5. Primary osteoarthritis. 6. Hypothyroid. 7. Peripheral artery disease. 8. Coronary artery with prior stent 17 years ago. PLAN: Home medications resumed. The patient is on IV heparin. Accu-Cheks will be closely followed. Cardiology is consulted. Care was discussed with the patient. Questions were answered. Copy to Dr. Vaibhav Ac. MMTAMRAL / HELEN: [id number] /
[2018-11-25 06:24] LABS: Glucose,Whole Blood 211 mg/dL (75-99)
[2018-11-25] MEDS: LEVOTHYROXINE 125 MCG TAB PO SCH (06:33)
[2018-11-25] MEDS ORDERED: metFORMIN 500 MG TAB PO SCH (07:30)
[2018-11-25 07:36] LABS: Basophils % (A) 1 %; Eosinophils # (A) 0.1 k/uL (0-0.7); Eosinophils % (A) 1 %; HCT 35.4 % (34.0-46.0); HGB 11.9 gm/dL (11.4-16.0); Lymphocytes # (A) 1.1 k/uL (1.0-4.8); Lymphocytes % (A) 27 %; MCH 29.5 pg (25.0-35.0); MCHC 33.7 g/dL (31.0-37.0); MCV 87.6 fL (80.0-100.0); Mean Platelet Volume 6.7; Monocytes # (A) 0.3 k/uL (0-1.0); Monocytes % (A) 7 %; Neutrophils # (A) 2.6 k/uL (1.3-7.7); Neutrophils % (A) 63 %; Platelet Count 210 k/uL (150-450); RBC 4.04 m/uL (3.80-5.40); RDW 13.6 % (11.5-15.5); WBC 4.1 k/uL (3.8-10.6)
[2018-11-25 07:42] LABS: INR 0.9 (<1.2); Partial Thromboplastin Time 77.7 sec (22.0-30.0); Prothrombin Time 9.9 sec (9.0-12.0)
[2018-11-25] MEDS ORDERED: NON-FORMULARY DRUG (Liraglutide [Victoza 2-Pak] 1.8 MG) SQ SCH (08:30)
[2018-11-25] MEDS ORDERED: ASPIRIN 81 MG PO SCH (09:00)
[2018-11-25] MEDS ORDERED: ASPIRIN 325 MG TAB PO SCH (09:00)
[2018-11-25] MEDS ORDERED: ATORVASTATIN 80 MG TAB PO SCH (09:00)
[2018-11-25] MEDS ORDERED: REGADENOSON 0.4 MG/5 ML SYRINGE IV ONE (10:58)
[2018-11-25] MEDS ORDERED: CAFFEINE CITRATE 60 MG/3 ML VIAL IV PRN (10:58)
[2018-11-25] MEDS ORDERED: SODIUM CHLORIDE 0.9% 1,000 ML in EMPTY BAG 1 BAG IV ONE (11:19)
[2018-11-25] MEDS ORDERED: ASPIRIN 325 MG TAB PO STA (11:19)
[2018-11-25] MEDS ORDERED: NITROGLYCERIN SL TABS 0.4 MG TAB SUBLINGUAL PRN (11:19)
[2018-11-25] MEDS ORDERED: ALPRAZolam 0.25 MG TAB PO PRN (11:19)
[2018-11-25] MEDS ORDERED: ATORVASTATIN 80 MG TAB PO STA (11:19)
[2018-11-25] MEDS ORDERED: ALPRAZolam 0.5 MG TAB PO PRN (11:19)
[2018-11-25 11:55] LABS: Glucose,Whole Blood 219 mg/dL (75-99)
--- NOTE | 2018-11-25 11:59 | CONS ---
CONSULTATION DATE OF SERVICE: 11/24/2018 Mrs. Vinson is a 73-year-old female who is seen for cardiac evaluations. The history obtained from the patient as well as the [facility]. Patient has a history of diabetes, hypertension, hyperlipidemia, prior coronary artery disease and peripheral artery disease. The patient gives a history that she went to [place] to meet her son for a couple of days and she came back on Wednesday and since then she was feeling weak and tired and not feeling well. According to the , she was quite pale. She did not had any nausea, vomiting or sweating. Yesterday morning she felt the same way and she went to the shower and she passed out. She was lying down for about 10 minutes, trying to get up again and then again she had a near syncopal spell. The patient did not have any chest pain, no shortness of breath. No fever or chills. Initial troponin in the [facility] was 0.0126. Subsequent troponin is 0.3 here. The patient at present is comfortable. Patient had a cardiac catheterization done last year which showed a 60% to 70% lesion in 2 obtuse marginal branch. Patient has a stent in the right coronary artery. PAST MEDICAL HISTORY: Past medical history includes a history of exploratory laparotomy, history of prior stent, cardiac catheterization, and patient has a infrarenal aortic stent and stent to the right common iliac artery. SOCIAL HISTORY: Patient has smoked 2 packs per day for last 40 years. She stopped in 2003. HOME MEDICATIONS: Patient's home medications include Glucophage, Nitrostat, Toprol, Victoza, Synthroid, Imdur, Amaryl, Zetia, Lipitor 80 mg daily, Plavix and baby aspirin. PHYSICAL EXAMINATION: Physical examination at present reveals a 73-year-old female who does not appear to be in any acute distress. Blood pressure is 140/72 mmHg. Head/ENT examination is negative. Neck is supple. There is no increase in jugular venous pressure. Both the carotid pulses are felt. There is no bruit. Chest is symmetrical. HEART: The PMI is not felt. First and second heart sounds are heard. Lungs are clinically clear to auscultation and percussion. Abdomen is soft. EXTREMITIES: Peripheral pulsations are 1+. EKG shows normal sinus rhythm with old inferior wall myocardial infarction. CT scan was negative for pulmonary embolism. Initial troponin done here is 0.311. FINAL IMPRESSION: Syncope. This patient has been feeling weak and tired for couple of days and had episode of syncope. The patient did not had any chest pain. Patient's initial troponin was borderline high. The repeat troponin is 0.311. The exact clinical history is unclear whether patient had a non ST-segment elevation myocardial infarction and syncope or patient first had syncope associated with hypotension which related to the rise in the troponin. This was discussed with the patient. We will continue to treat the patient medically with heparin. Subsequent EKGs and cardiac enzymes will be obtained and further recommendations will be made depending upon the findings. MMODL / IJN: [id number] /
--- NOTE | 2018-11-25 12:02 | PN ---
PROGRESS NOTE DATE OF SERVICE: 11/25/2018 The patient is feeling well. Denies any chest pain. Denies any shortness of breath. No arrhythmias are noted. No orthostatic changes are noted. Patient's subsequent troponin is 0.301. Echocardiogram reveals overall normal left ventricular systolic function. Discussed the condition with the patient. In view of the abnormal cardiac enzymes, we cannot completely rule out primary cardiac event and patient is advised further evaluation with a cardiac catheterization to rule out any significant progression in the coronary artery disease. MMODL / IJN: [id number] /
[2018-11-25] MEDS: LISINOPRIL 20 MG TAB PO SCH (12:13)
[2018-11-25] MEDS: METOPROLOL SUCCINATE (ER) 100 MG TAB.ER.24H PO SCH (12:13)
[2018-11-25] MEDS: ISOSORBIDE MONONITRATE ER 15 MG TAB PO SCH (12:13)
[2018-11-25] MEDS: EZETIMIBE 10 MG TAB PO SCH (12:13)
[2018-11-25] MEDS ORDERED: SODIUM CHLORIDE 0.9% 500 ML 500 ML IV ONE (13:55)
[2018-11-25] MEDS ORDERED: MIDAZOLAM 2 MG/2 ML VIAL IV ONE (13:55)
[2018-11-25] MEDS ORDERED: LIDOCAINE 1% INJ 10MG/ML (20 ML MDV) SQ ONE (14:01)
[2018-11-25] MEDS ORDERED: HEPARIN SODIUM 1,000 UN/ML (10ML VL) IV ONE (14:02)
[2018-11-25] MEDS: VERAPAMIL SYRINGE (5 MG/10 ML) INTRAARTER ONE ×2 (14:02→14:11)
[2018-11-25] MEDS ORDERED: IOPAMIDOL-370 150ML BTL INJ ONE (14:12)
[2018-11-25] MEDS ORDERED: RX INFO: IV CONTRAST WAS GIVEN 1 EACH MISC MISCELLANE PRN (14:19)
[2018-11-25] MEDS ORDERED: SODIUM CHLORIDE 0.9% 1,000 ML IV SCH (14:30)
[2018-11-25] MEDS: CLOPIDOGREL 75 MG TAB PO SCH (16:46)
[2018-11-25] MEDS: GLIMEPIRIDE 4 MG TAB PO SCH (16:46)
[2018-11-25 16:52] LABS: Glucose,Whole Blood 275 mg/dL (75-99)
--- NOTE | 2018-11-25 17:21 | P.GSCN ---
<Robinson Aguayo - Last Filed: 11/25/18 16:48> History of Present Illness Consult date: 11/25/18 Reason for Consult: Symptomatic multivessel coronary artery disease with left main disease, evaluation for surgical intervention. Requesting physician: Leola Flores History of present illness: This is a 73-year-old female patient who is followed by Dr. Vaibhav Ac on an outpatient basis. She also follows with Dr. Wakefield for diabetes management. The patient has a past medical history significant for diabetes mellitus type 2 , hypertension, hyperlipidemia, history of nicotine dependence which she quit 15 -20 years ago, known history of coronary artery disease with previous stent to her right coronary artery, peripheral arterial disease with previous peripheral stent placement, hypothyroid, osteoarthritis and family history of coronary artery disease. The patient reports that this past weekend she was in [place] to meet up with family. When she arrived home from [place] she was feeling quite well until 11/22/2018 when she felt very fatigued, no appetite, chills and diarrhea. She reports that she felt this way also on Wednesday. She denies any complaints of chest pain, shortness of breath fever, nausea, vomiting or syncope on Wednesday or Wednesday. On , 11/24/2018 the patient reports that she felt quite well and was doing some also chores. She got in the shower around 7:10 AM on and while in the shower lost consciousness and hitting her head and injuring her left baby toe. She felt that she was out for about 10 minutes and when she regained consciousness attempted to get out of the shower and had an episode where she felt very lightheaded and fell again. She reports that she had a third fall hitting the back of her head. The patient was home alone during these episodes and when her arrived home he brought her to [facility] for evaluation. The patient was found to have an elevated troponin at [facility] of 0.0126 and the patient was subsequently transferred to [facility] for further workup and evaluation. When she arrived here at [facility] initial 12-lead EKG showed normal sinus rhythm with a heart rate of 87 BPM. Her lab results showed troponins as high as 0.311 and a blood sugar of 216. The patient reports that she is not compliant with checking her blood sugar on a regular basis at home. Subsequently due to her presenting symptoms, elevated troponins and coronary artery disease history she underwent a 2-D echocardiogram. The 2-D echocardiogram showed an overall left ventricular systolic function to be normal with an ejection fraction between 60 and 65%, mild mitral valve regurgitation, and trace tricuspid valve regurgitation. For further evaluation the patient underwent a cardiac catheterization which was completed today which demonstrated a 50% stenosis to her left main coronary artery, a 60% stenosis to her right coronary artery, and 80% stenosis to her circumflex coronary artery and an 80% stenosis to her proximal left anterior descending coronary artery. Due to the cardiac catheterization results a consult was placed to Dr. Olivares from cardiothoracic surgery for further evaluation and surgical recommendations. Review of Systems A 14 point review of systems was completed and was negative except as mentioned in HPI. Past Medical History Past Medical History: Coronary Artery Disease (CAD), Chest Pain / Angina, Diabetes Mellitus, Eye Disorder, Hyperlipidemia, Hypertension, Myocardial Infarction (non Q-wave), Osteoarthritis (OA), Thyroid Disorder, Vascular Disorder Additional Past Medical History / Comment(s): 2000 HX ASHD, peripheral arterial disease, intermittent claudication involving infra renal aorta and rt and lt common iliac arteries (had stents palced), bilat cataracts, glaucoma L eye with stent. Last Myocardial Infarction Date:: 2000 History of Any Multi-Drug Resistant Organisms: None Reported Past Surgical History: Adenoidectomy, Heart Catheterization With Stent, Tonsillectomy, Tubal Ligation Additional Past Surgical History / Comment(s): EXP. LAP 02/2012, STENT TO HEART X1, INFRARENAL AORTA STENT, STENTS TO RIGHT AND LEFT COMMONI ILLIAC ARTERIES. AORTOGRAM WITH RUNOFF 02/02/14 @ [facility] Past Anesthesia/Blood Transfusion Reactions: No Reported Reaction Additional Past Anesthesia/Blood Transfusion Reaction / Comm: pt states she has never had a blood transfusion Date of Last Stent Placement:: 2000 Past Psychological History: No Psychological Hx Reported Smoking Status: Former smoker Past Alcohol Use History: Occasional Additional Past Alcohol Use History / Comment(s): STARTED SMOKING AGE 28 (1964) , QUIT 2003, SMOKED 2PPD Past Drug Use History: None Reported - Past Family History Mother Family Medical History: Dementia Additional Family Medical History / Comment(s): HEART PROBLEMS Father Family Medical History: Coronary Artery Disease (CAD), Myocardial Infarction ([place] ) Additional Family Medical History / Comment(s): Her father at age 79 with a myocardial infarction. Medications and Allergies Home Medications Medication Instructions Recorded Confirmed Type Aspirin 81 mg PO DAILY 01/31/14 11/24/18 History Clopidogrel [Plavix] 75 mg PO DAILY 01/31/14 11/24/18 History Ergocalciferol [Vitamin D2 50,000 units PO Q15D 01/31/14 11/24/18 History (DRISDOL)] Ezetimibe [Zetia] 10 mg PO DAILY 01/31/14 11/24/18 History Hydrochlorothiazide [Hydrodiuril] 25 mg PO DAILY 01/31/14 11/24/18 History Levothyroxine Sodium [Synthroid] 125 mcg PO -KT 01/31/14 11/24/18 History Liraglutide [Victoza 2-Luiz] 1.8 mg SQ -KT 01/31/14 11/24/18 History Lisinopril 40 mg PO DAILY 01/31/14 11/24/18 History Metoprolol Succinate [Toprol XL] 100 mg PO DAILY 01/31/14 11/24/18 History Nitroglycerin Sl Tabs [Nitrostat] 0.4 mg SUBLINGUAL Q5M PRN #25 tab 03/16/18 Rx metFORMIN HCL [Glucophage] 500 mg PO BID #0 03/16/18 11/24/18 Rx Atorvastatin [Lipitor] 80 mg PO DAILY 11/24/18 11/24/18 History Glimepiride [Amaryl] [facility] 11/24/18 11/24/18 History Isosorbide Mononitrate ER [Imdur] 15 mg PO DAILY 11/24/18 11/24/18 History Allergies Allergy/AdvReac Type Severity Reaction Status Date / Time hydromorphone HCl Allergy RESPIRATORY Verified 11/24/18 11:46 [From Dilaudid] DEPRESSION Surgical - Exam Vital Signs Temp Pulse Resp BP Pulse Ox 97.8 F 90 20 149/71 97 11/24/18 11:27 11/24/18 11:27 11/24/18 11:27 11/24/18 11:27 11/24/18 11:27 - General well developed, well nourished, no distress, no pain, obese - Eyes PERRL, normal ocular movement - ENT normal pinna, normal nares, normal mucosa, no hearing loss, no congestion - Neck No lymphadenopathy, neck is supple. no masses, trachea midline, no venous distension carotid bruit: right - Respiratory Lung sounds are essentially clear throughout, diminished her bilateral bases. Respirations are symmetrical and nonlabored. Oxygen saturation are 97% on room air. - Cardiovascular Regular rhythm and rate. S1 and S2 present, negative for S3, gallop or murmur. No edema present. - Abdomen Abdomen soft, nontender and nondistended. Active bowel sounds all 4 abdominal quadrants. No organomegaly. No guarding or rigidity. - Genitourinary Deferred - Rectum Deferred - Integumentary Left foot fifth toe with gauze dressing clean dry and intact. Ecchymotic area to her forehead. no rash, no growths, no abnormal pigmentation - Neurologic normal coordination, normal sensation - Musculoskeletal normal gait, normal posture - Psychiatric oriented to time, oriented to person, oriented to place, speech is normal, memory intact Results - Labs 11/25/18 06:22 11/25/18 06:22 Abnormal Lab Results - Last 24 Hours (Table) 11/24/18 11/24/18 11/24/18 Range/Units 19:16 20:25 21:13 APTT 74.2 H (22.0-30.0) sec Chloride (98-107) mmol/L Glucose (74-99) mg/dL POC Glucose (mg/dL) 216 H (75-99) mg/dL Troponin I 0.308 H* (0.000-0.034) ng/mL HDL Cholesterol (40-60) mg/dL 11/25/18 11/25/18 11/25/18 Range/Units 06:22 06:22 06:23 APTT 77.7 H (22.0-30.0) sec Chloride 108 H (98-107) mmol/L Glucose 214 H (74-99) mg/dL POC Glucose (mg/dL) 211 H (75-99) mg/dL Troponin I (0.000-0.034) ng/mL HDL Cholesterol 31 L (40-60) mg/dL 11/25/18 Range/Units 11:30 APTT (22.0-30.0) sec Chloride (98-107) mmol/L Glucose (74-99) mg/dL POC Glucose (mg/dL) 219 H (75-99) mg/dL Troponin I (0.000-0.034) ng/mL HDL Cholesterol (40-60) mg/dL Diabetes panel 11/25/18 Range/Units 06:22 Sodium 141 (137-145) mmol/L Potassium 4.0 (3.5-5.1) mmol/L Chloride 108 H (98-107) mmol/L Carbon Dioxide 25 (22-30) mmol/L BUN 16 (7-17) mg/dL Creatinine 0.93 (0.52-1.04) mg/dL Glucose 214 H (74-99) mg/dL Calcium 9.0 (8.4-10.2) mg/dL Triglycerides 110 (<150) mg/dL HDL Cholesterol 31 L (40-60) mg/dL Calcium panel 11/25/18 Range/Units 06:22 Calcium 9.0 (8.4-10.2) mg/dL Pituitary panel 11/25/18 Range/Units 06:22 Sodium 141 (137-145) mmol/L Potassium 4.0 (3.5-5.1) mmol/L Chloride 108 H (98-107) mmol/L Carbon Dioxide 25 (22-30) mmol/L BUN 16 (7-17) mg/dL Creatinine 0.93 (0.52-1.04) mg/dL Glucose 214 H (74-99) mg/dL Calcium 9.0 (8.4-10.2) mg/dL Adrenal panel 11/25/18 Range/Units 06:22 Sodium 141 (137-145) mmol/L Potassium 4.0 (3.5-5.1) mmol/L Chloride 108 H (98-107) mmol/L Carbon Dioxide 25 (22-30) mmol/L BUN 16 (7-17) mg/dL Creatinine 0.93 (0.52-1.04) mg/dL Glucose 214 H (74-99) mg/dL Calcium 9.0 (8.4-10.2) mg/dL - Imaging CT scan - chest: report reviewed, image reviewed EKG: image reviewed Assessment and Plan (1) Syncope Current Visit: Yes Status: Acute Code(s): R55 - SYNCOPE AND COLLAPSE SNOMED Code(s): 502187364 (2) Coronary artery disease involving left main coronary artery Current Visit: Yes Status: Acute Code(s): I25.10 - ATHSCL HEART DISEASE OF [place] CORONARY ARTERY W/O ANG PCTRS SNOMED Code(s): 540547609 (3) Peripheral arterial disease Current Visit: Yes Status: Chronic Code(s): I73.9 - PERIPHERAL VASCULAR DISEASE, UNSPECIFIED SNOMED Code(s): 299273184 (4) Right carotid bruit Current Visit: Yes Status: Acute Code(s): R09.89 - OTH SYMPTOMS AND SIGNS INVOLVING THE CIRC AND RESP SYSTEMS SNOMED Code(s): 984400322 (5) Nicotine dependence, cigarettes, in remission Current Visit: Yes Status: Resolved Code(s): F17.211 - NICOTINE DEPENDENCE, CIGARETTES, IN REMISSION SNOMED Code(s): 259557516 (6) Hyperlipidemia Current Visit: Yes Status: Chronic Code(s): E78.5 - HYPERLIPIDEMIA, UNSPECIFIED SNOMED Code(s): 45605548 (7) Diabetes mellitus Current Visit: Yes Status: Chronic Code(s): E11.9 - TYPE 2 DIABETES MELLITUS WITHOUT COMPLICATIONS SNOMED Code(s): 00098172 (8) Hypothyroid Current Visit: Yes Status: Chronic Code(s): E03.9 - HYPOTHYROIDISM, UNSPECIFIED SNOMED Code(s): 88343756 (9) Osteoarthritis Current Visit: Yes Status: Chronic Code(s): M19.90 - UNSPECIFIED OSTEOARTHRITIS, UNSPECIFIED SITE SNOMED Code(s): 165224281 (10) Hypertension Current Visit: No Status: Chronic Code(s): I10 - ESSENTIAL (PRIMARY) HYPERTENSION SNOMED Code(s): 47363419 Plan: Patient was seen and examined at her bedside in the 3 S cardiac stepdown unit. She is several family members at her bedside present. Her chart diagnostics were reviewed. Preoperative testing was initiated, preoperative teaching was initiated. Her case was discussed with Dr. Olivares from cardiothoracic surgery. Continue no to optimize medically, continue aspirin, statin, MEL inhibitor and beta dante. Continue medical management per primary care service. Consultation placed for pulmonary critical care for preoperative pulmonary clearance. More recommendations to follow based on patient's clinical course. Thank you Dr. Flores for this consult and we will look forward to working with you in the care of your patient. Time with Patient: Greater than 30 <MarshallJuan Antonio - Last Filed: 11/28/18 11:43> Surgical - Exam Vital Signs Temp Pulse Resp BP Pulse Ox 97.8 F 90 20 149/71 97 11/24/18 11:27 11/24/18 11:27 11/24/18 11:27 11/24/18 11:27 11/24/18 11:27 Results - Labs 11/28/18 07:50 11/28/18 07:50 Abnormal Lab Results - Last 24 Hours (Table) 11/27/18 11/27/18 11/27/18 Range/Units 11:40 16:37 21:13 Glucose (74-99) mg/dL POC Glucose (mg/dL) 172 H 137 H 202 H (75-99) mg/dL 11/28/18 11/28/18 Range/Units 06:21 07:50 Glucose 288 H (74-99) mg/dL POC Glucose (mg/dL) 175 H (75-99) mg/dL Microbiology - Last 24 Hours (Table) 11/25/18 11:20 Nasal Screen MRSA/MSSA - Final Nasal Swab 11/26/18 12:00 Urine Culture - Preliminary Urine,Clean Catch Gram Neg Bacilli Diabetes panel 11/28/18 Range/Units 07:50 Sodium 138 (137-145) mmol/L Potassium 4.0 (3.5-5.1) mmol/L Chloride 101 (98-107) mmol/L Carbon Dioxide 27 (22-30) mmol/L BUN 14 (7-17) mg/dL Creatinine 0.87 (0.52-1.04) mg/dL Glucose 288 H (74-99) mg/dL Calcium 9.3 (8.4-10.2) mg/dL Calcium panel 11/28/18 Range/Units 07:50 Calcium 9.3 (8.4-10.2) mg/dL Pituitary panel 11/28/18 Range/Units 07:50 Sodium 138 (137-145) mmol/L Potassium 4.0 (3.5-5.1) mmol/L Chloride 101 (98-107) mmol/L Carbon Dioxide 27 (22-30) mmol/L BUN 14 (7-17) mg/dL Creatinine 0.87 (0.52-1.04) mg/dL Glucose 288 H (74-99) mg/dL Calcium 9.3 (8.4-10.2) mg/dL Adrenal panel 11/28/18 Range/Units 07:50 Sodium 138 (137-145) mmol/L Potassium 4.0 (3.5-5.1) mmol/L Chloride 101 (98-107) mmol/L Carbon Dioxide 27 (22-30) mmol/L BUN 14 (7-17) mg/dL Creatinine 0.87 (0.52-1.04) mg/dL Glucose 288 H (74-99) mg/dL Calcium 9.3 (8.4-10.2) mg/dL Assessment and Plan Plan: The patient was seen and examined. I agree with the above assessment and plan. The patient is a 73-year-old female with a history of multiple medical problems including significant vascular disease who presented to the hospital after a syncopal episode. Cardiac workup revealed multivessel coronary artery disease. A coronary artery bypass is recommended. The risks, benefits, and alternatives to this procedure including but not limited to the risk of stroke, bleeding, need for blood transfusion, infection, myocardial infarction, hemodialysis, and were discussed with the patient and her . All their questions were answered. I did review her recent computed tomography scan of the chest which reveals scattered plaque throughout the arch and descending aorta. There is also some calcific plaque noted in the ascending aorta, but I do not believe it is prohibitive to surgical intervention. We will obtain our standard preoperative workup to obtain an accurate STS risk score. The patient is currently hemodynamically stable and chest pain-free. Her last dose of Plavix was yesterday. We will plan on performing this procedure next week.
[2018-11-25 18:14] LABS: Magnesium 1.9 mg/dL (1.6-2.3)
--- NOTE | 2018-11-25 18:28 | PN ---
PROGRESS NOTE DATE OF SERVICE: 11/25/2018 PRESENTING COMPLAINT: Recurrent syncope. INTERVAL HISTORY: This patient presented with recurrent syncope, weak, tired, rundown. Known history of coronary artery disease. Troponin leak. Concern that this was acute non-Q-wave NM. I spoke to the patient and spoke to Dr. Flores. Patient will be going down for a cardiac catheterization. present at the bedside. Patient does feel tired. REVIEW OF SYSTEMS: Done for constitutional, cardiovascular, GI, pulmonary; relevant findings as above. CURRENT MEDICATIONS: Reviewed. They include IV heparin. PHYSICAL EXAMINATION: Temperature 98.2, pulse 78, respiration 16, blood pressure 150/78, pulse ox 97% on room air. GENERAL APPEARANCE: Sitting up. Tired-appearing. EYES: Pupils equal. Conjunctivae normal. NECK: JVD not raised. Mass not palpable. RESPIRATORY: Effort normal. Lungs are clear. CARDIOVASCULAR: First and second sounds normal. No edema. ABDOMEN: Soft, non-tender. Liver and spleen not palpable. PSYCHIATRY: Alert and oriented x3. Mood and affect normal. INVESTIGATIONS: White count 4.1, hemoglobin 11.9, potassium 4.0. BUN and creatinine are normal. ASSESSMENT: 1. Unstable angina versus acute non-Q-wave myocardial infarction in a patient with known coronary artery disease. Patient is pending a cardiac catheterization. 2. Diabetes mellitus, type 2, on oral hypoglycemic. 3. Essential hypertension. 4. Hyperlipidemia. 5. Primary osteoarthritis. 6. Hypothyroid. 7. Peripheral artery disease. 8. Coronary artery disease with stent 17 years ago. 9. IV heparin monitoring. PLAN: Continue current medication and treatment plan. Spoke with the patient and Dr. Flores. Patient is due to go down for a cardiac catheterization. Will follow from there. MMODL / IJN: [id number] /
[2018-11-25 19:43] LABS: Hemoglobin A1C 8.1 % (4.0-6.0)
[2018-11-25] MEDS: MUPIROCIN 2% OINT 22 GM TUBE NASAL SCH (19:43)
[2018-11-25] MEDS: SODIUM CHLORIDE 0.9% 1,000 ML IV SCH ×2 (19:44→22:14)
[2018-11-25 19:59] LABS: T4, Free (Free Thyroxine) 1.19 ng/dL (0.78-2.19)
--- NOTE | 2018-11-25 20:13 | XR ---
EXAMINATION TYPE: XR chest 2V DATE OF EXAM: 11/25/2018 COMPARISON: 01/30/2014 HISTORY: Preop TECHNIQUE: Frontal and lateral views of the chest are obtained. FINDINGS: There is no heart failure nor confluent pneumonic infiltrate. Costophrenic angles are anthony r. Heart size is normal. Thoracic aorta is atheromatous. There are chest leads. IMPRESSION: No active cardiopulmonary disease. No change.
--- NOTE | 2018-11-25 21:06 | US ---
EXAMINATION TYPE: US carotid duplex BILAT DATE OF EXAM: 11/25/2018 COMPARISON: NONE CLINICAL HISTORY: Preoperative cardiac surgery. Precabg, HTN, No hx of TIA EXAM MEASUREMENTS: RIGHT: Peak Systolic Velocity (PSV) cm/sec ----- Right CCA: 65.1 ----- Right ICA: 84.2 ----- Right ECA: 87.6 ICA/CCA ratio: 1.3 RIGHT: End Diastole cm/sec ----- Right CCA: 11.9 ----- Right ICA: 14.9 ----- Right ECA: 0.0 LEFT: Peak Systolic Velocity (PSV) cm/sec ----- Left CCA: 65.5 ----- Left ICA: 79.8 ----- Left ECA: 108.2 ICA/CCA ratio: 1.2 LEFT: End Diastole cm/sec ----- Left CCA: 11.7 ----- Left ICA: 17.1 ----- Left ECA: 0.0 VERTEBRALS (direction of flow): Right Vertebral: Antegrade Left Vertebral: Antegrade Rhythm: Normal No elevated velocities or significant stenosis. Bilateral wall thickening. Plaque seen in bilateral bulbs and right CCA. IMPRESSION: There is antegrade flow in the vertebral arteries. The images and measurements suggest u p to 40% stenosis in both internal carotid arteries. Bilateral plaque formation. Criteria for Assigning % of Stenosis / Diameter reduction (Estimation based on the indirect measurements of the internal carotid artery velocities (ICA PSV). 1. Normal (no stenosis)=ICA PSV < 125 cm/s: ratio < 2.0: ICA EDV<40 cm/s. 2. Less than 50% stenosis=ICA PSV < 125 cm/s: ratio < 2.0: ICA EDV<40 cm/s. 3. 50 to 69% stenosis=ICA PSV of 125 to 230 cm/s: ration 2.0 ? 4.0: ICA EDV 40-100 cm/s. 4. Greater than 70% stenosis to near occlusion= ICA PSV > 230 cm/s: ratio > 4.0: ICA EDV > 100 cm/s. 5. Near occlusion= ICA PSV velocities may be low or undetectable: variable ratio and ICA EDV. 6. Total occlusion=unable to detect flow.
[2018-11-25 21:18] LABS: Glucose,Whole Blood 299 mg/dL (75-99)
[2018-11-25] MEDS: HEPARIN SOD,PORK IN 0.45% NACL 25,000 UNIT in 0.45% NACL 1 250ML.BAG IV SCH (22:14)
--- NOTE | 2018-11-25 22:17 | CC ---
CARDIAC CATHETERIZATION REPORT DATE OF SERVICE: November 25, 2018. PERFORMING PHYSICIAN: Berto Jeffries MD, veneer taping machine offbearer. PROCEDURE PERFORMED: 1. Selective right and left coronary angiogram. 2. Left heart catheterization. INDICATION: This is a pleasant 73-year-old female patient who sees Dr. David Flores in the office as an outpatient with known history of coronary artery disease as well as peripheral arterial disease with known bilateral iliac stenting as well as bilateral femoral- popliteal disease, who was admitted to the hospital with syncope. She was ruled in for acute non-ST elevation myocardial infarction. Because of that, a heart catheterization was advised from right radial approach. COMPLICATION: None. LEVEL OF SEDATION: Moderate with sedation length of 20 minutes. PROCEDURE DESCRIPTION: After obtaining an informed consent, the patient was brought to the cardiac petroleum refinery laborer. The right radial artery was cannulated using micropuncture technique, the micropuncture wire passed easily. Then I placed a 6-[place] sheath in the right radial artery. After that, I did give the patient 2 mg of verapamil IA and 8000 units of heparin IV. Subsequently, I did selective right and left coronary angiogram using JR4 and JL3.5 catheters. I did use 5-[place]yr[place] system. Left heart catheterization was performed using the JR4 catheter which crossed the aortic valve and then I did pullback across the aortic valve after I did flush the catheter. The procedure was completed without any complication. SELECTIVE CORONARY ANGIOGRAM: 1. The right coronary artery is a large caliber vessel and it is a dominant vessel. The proximal RCA appeared to be angiographically normal. The mid RCA has a lesion appeared to be in the range of 60% to 70%. The RCA distally is normal and bifurcates into PDA and PLV branches both appeared to be angiographically normal. 2. The left main has a plaque appeared to be in the range of 50%. Bifurcates into the left circumflex and left anterior descending artery. 3. The left circumflex is a large caliber vessel. It is a nondominant vessel. The proximal left circumflex appeared to have a lesion in the range of 80%. This is by the bifurcation of the OM 1, which has ostial lesion appeared to be in the range of 80% as well. The left circumflex after that, continues as a moderate caliber vessel in the AV groove and gives rise into a second OM branch which appeared to be angiographically normal. 4. The LAD: The very proximal LAD right after the bifurcation from the left main has eccentric lesion appeared to be in the range of 70% to 80%. The mid LAD has another plaque appeared to be in the range of 70-80%. The LAD continues after that as a moderate caliber vessel and appeared to have diffuse disease and appeared to be calcified as well. HEMODYNAMICS: The left ventricular end-diastolic pressure was 12 mmHg and there was no significant gradient across the aortic valve. CONCLUSION: 1. Calcified right and left coronary systems. 2. Severe triple-vessel coronary artery disease. 3. Severe disease involving the left main coronary artery as well. POSTPROCEDURE MANAGEMENT: Given the above anatomy, I did recommend proceeding with coronary artery bypass grafting. The patient is going to be seen by cardiothoracic surgeon later on today. MMODL / IJN: [id number] /
--- NOTE | 2018-11-25 22:32 | LTR ---
November 25, 2018 To: Dr. Vaibahv Ac Re: Sangeeta Vinson (1945) Dear Dr. Ac, Ms. Sangeeta Vinson was admitted to [facility] with syncope and was ruled in for acute coronary syndrome. She underwent heart catheterization and that revealed severe triple-vessel coronary artery disease. I advised the patient to undergo coronary artery bypass grafting, and she is in process to be seen by cardiothoracic surgeon. Thank you for allowing me to participate in her care and please do not hesitate to call if you have any question or concern. Sincerely, MD CHECO Vasquez / PARISHN: [id number] /
[2018-11-25 23:24] LABS: Hepatitis A Antibody IgM Non-Reactive (Non-Reactive); Hepatitis B Core IgM Non-Reactive (Non-Reactive)
[2018-11-26 05:53] LABS: Glucose,Whole Blood 209 mg/dL (75-99)
[2018-11-26] MEDS: GLIMEPIRIDE 4 MG TAB PO SCH (06:21)
[2018-11-26] MEDS: LEVOTHYROXINE 125 MCG TAB PO SCH (06:22)
[2018-11-26 06:35] LABS: Basophils % (A) 1 %; Eosinophils # (A) 0.1 k/uL (0-0.7); Eosinophils % (A) 2 %; HCT 31.9 % (34.0-46.0); HGB 10.9 gm/dL (11.4-16.0); Lymphocytes % (A) 23 %; MCH 29.5 pg (25.0-35.0); MCV 86.9 fL (80.0-100.0); Mean Platelet Volume 6.5; Monocytes # (A) 0.3 k/uL (0-1.0); Monocytes % (A) 7 %; Neutrophils # (A) 2.8 k/uL (1.3-7.7); Neutrophils % (A) 67 %; Platelet Count 205 k/uL (150-450); RBC 3.68 m/uL (3.80-5.40); RDW 13.6 % (11.5-15.5); WBC 4.2 k/uL (3.8-10.6)
[2018-11-26 06:38] LABS: INR 0.9 (<1.2); Prothrombin Time 9.7 sec (9.0-12.0)
[2018-11-26 06:49] LABS: Calcium 8.3 mg/dL (8.4-10.2); Potassium 3.7 mmol/L (3.5-5.1); Total Bilirubin 0.6 mg/dL (0.2-1.3); Total Protein 5.8 g/dL (6.3-8.2)
[2018-11-26] MEDS: METOPROLOL SUCCINATE (ER) 100 MG TAB.ER.24H PO SCH (08:48)
[2018-11-26] MEDS: ATORVASTATIN 80 MG TAB PO SCH (08:48)
[2018-11-26] MEDS: ISOSORBIDE MONONITRATE ER 15 MG TAB PO SCH (08:48)
[2018-11-26] MEDS: ASPIRIN 81 MG PO SCH (08:48)
[2018-11-26] MEDS: EZETIMIBE 10 MG TAB PO SCH (08:48)
[2018-11-26] MEDS: MUPIROCIN 2% OINT 22 GM TUBE NASAL SCH ×2 (08:52→19:57)
--- NOTE | 2018-11-26 10:12 | P.PN ---
Subjective Progress Note Date: 11/26/18 Principal diagnosis: Symptomatic multivessel coronary artery disease with left main disease, non- STEMI, syncopal episodes. Previous medical history of known coronary artery disease and myocardial infarction with stenting to the right coronary artery, diabetes, hypertension, hyperlipidemia, previous tobacco dependence, peripheral artery disease with previous bilateral lower extremity stent placement, infrarenal aortic stent, and failed attempt at aortofemoral bypass, hypothyroidism, osteoarthritis, obesity, and family history of coronary artery disease. The patient is currently sitting up in bed in no acute distress. She denies any pain or shortness of breath. States she feels better than when she came in. She has ambulated without difficulty. She remains in normal sinus rhythm and has had no more episodes of syncope. Objective - Vital Signs Vital signs: Vital Signs Temp 99 F 11/26/18 08:30 Pulse 83 11/26/18 08:30 Resp 20 11/26/18 08:30 BP 164/74 11/26/18 08:30 Pulse Ox 95 11/26/18 08:30 Intake & Output 11/25/18 11/26/18 11/26/18 18:59 06:59 18:59 Intake Total 1010 180 Output Total 400 Balance 1010 -220 Weight 80.5 kg Intake: IV 50 Oral 960 180 Output: Urine 400 Other: # Voids 3 1 1 - Constitutional General appearance: Present: cooperative, no acute distress, obese - Respiratory Details: Lungs sounds clear bilaterally. Respirations even, nonlabored. Currently on room air with oxygen saturation 98%. Able to achieve 1500 mL on her incentive spirometry. Strong cough. - Cardiovascular Details: S1, S2 present. Regular rate and rhythm, sinus rhythm on telemetry. Palpable peripheral pulses bilaterally. No edema present. No calf pain or tenderness noted. - Gastrointestinal Gastrointestinal Comment(s): Abdomen soft, nontender, nondistended. Active bowel sounds 4 quadrants. Tolerating diet. - Genitourinary Genitourinary Comment(s): Continues to void clear, yellow urine. - Integumentary Integumentary Comment(s): Skin is warm and dry with evidence of good perfusion. - Neurologic Neurologic: Present: CNII-XII intact - Musculoskeletal Musculoskeletal: Present: gait normal, strength equal bilaterally - Psychiatric Psychiatric: Present: A&O x's 3, appropriate affect, intact judgment & insight - Allied health notes Allied health notes reviewed: nursing - Labs CBC & Chem 7: 11/26/18 05:53 11/26/18 05:53 Labs: Abnormal Lab Results - Last 24 Hours (Table) 11/25/18 11/25/18 11/25/18 Range/Units 06:22 06:22 11:30 RBC (3.80-5.40) m/uL Hgb (11.4-16.0) gm/dL Hct (34.0-46.0) % Sodium (137-145) mmol/L Glucose (74-99) mg/dL POC Glucose (mg/dL) 219 H (75-99) mg/dL Hemoglobin A1c 8.1 H (4.0-6.0) % Calcium (8.4-10.2) mg/dL Total Protein (6.3-8.2) g/dL Albumin (3.5-5.0) g/dL HDL Cholesterol 30 L (40-60) mg/dL TSH 0.175 L (0.465-4.680) mIU/L 11/25/18 11/25/18 11/26/18 Range/Units 16:45 21:16 05:52 RBC (3.80-5.40) m/uL Hgb (11.4-16.0) gm/dL Hct (34.0-46.0) % Sodium (137-145) mmol/L Glucose (74-99) mg/dL POC Glucose (mg/dL) 275 H 299 H 209 H (75-99) mg/dL Hemoglobin A1c (4.0-6.0) % Calcium (8.4-10.2) mg/dL Total Protein (6.3-8.2) g/dL Albumin (3.5-5.0) g/dL HDL Cholesterol (40-60) mg/dL TSH (0.465-4.680) mIU/L 11/26/18 11/26/18 Range/Units 05:53 05:53 RBC 3.68 L (3.80-5.40) m/uL Hgb 10.9 L (11.4-16.0) gm/dL Hct 31.9 L (34.0-46.0) % Sodium 136 L (137-145) mmol/L Glucose 201 H (74-99) mg/dL POC Glucose (mg/dL) (75-99) mg/dL Hemoglobin A1c (4.0-6.0) % Calcium 8.3 L (8.4-10.2) mg/dL Total Protein 5.8 L (6.3-8.2) g/dL Albumin 3.0 L (3.5-5.0) g/dL HDL Cholesterol (40-60) mg/dL TSH (0.465-4.680) mIU/L - Imaging and Cardiology Chest x-ray: report reviewed, image reviewed Heart catheterization, transthoracic echocardiogram, EKG reviewed Assessment and Plan Assessment: 1. Symptomatic multivessel coronary artery disease with left main disease, non- STEMI 2. Syncopal episodes, no significant carotid artery stenosis 3. History of known coronary artery disease and myocardial infarction with stenting to the right coronary artery 4. Uncontrolled diabetes with current hemoglobin A1c 8.1% 5. Hypertension 6. Hyperlipidemia 7. Previous tobacco dependence with current FEV1 81% of predicted 8. Peripheral artery disease with previous bilateral lower extremity stent placement, infrarenal aortic stent, and failed attempt at aortofemoral bypass 9. Hypothyroidism 10. Obesity 11. Family history of coronary artery disease 12. Osteoarthritis Plan: 1. Continue aspirin, statin/Zetia, Plavix, MEL inhibitor, beta dante therapy. 2. Encourage incentive spirometry 10 times every hour while awake 3. Reinforce preoperative teaching 4. Will calculate STS risk score and discuss with the patient 5. Continue medical management per primary care service. 6. Dr. Olivares will see this patient today and make further recommendations for surgical management. Time with Patient: Greater than 30
[2018-11-26] MEDS: Liraglutide [Victoza 2-Pak] 1.8 MG SQ SCH (11:20)
[2018-11-26] MEDS: LISINOPRIL 20 MG TAB PO SCH (11:27)
--- NOTE | 2018-11-26 11:42 | P.PN ---
Subjective Progress Note Date: 11/26/18 This is a pleasant 73-year-old female who follows with Dr. VC Flores in the office. She has a known history of diabetes, hypertension, hyperlipidemia, prior coronary artery disease, peripheral arterial disease, presented to the hospital following a syncopal episode. She did undergo cardiac catheterization at a year ago which revealed 60-70% lesion in the second obtuse marginal branch , she has a known stent in the right coronary artery. Patient was noted to have abnormality in her troponin and was advised to undergo cardiac catheterization. This was performed yesterday by Dr. Arreguin and revealed calcified right and left coronary systems, severe triple-vessel coronary artery disease and severe disease involving the left main coronary artery as well. Cardiothoracic surgery has been consulted for bypass surgery. She was seen and examined this morning, denies any chest pain, no dizziness or lightheadedness. Blood pressure 140/60 with a heart rate in the 70s. White blood cell count is 4.2, hemoglobin 10.9, platelet count 205. Sodium 136, potassium 3.7, BUN 11 and creatinine 0.8. Echocardiogram with Doppler study was performed which revealed a normal left ventricular systolic function. Objective - Vital Signs Vital signs: Vital Signs Temp 98.9 F 11/26/18 11:19 Pulse 77 11/26/18 11:19 Resp 16 11/26/18 11:19 BP 143/65 11/26/18 11:19 Pulse Ox 96 11/26/18 11:19 Intake & Output 11/25/18 11/26/18 11/26/18 18:59 06:59 18:59 Intake Total 1010 780 Output Total 400 Balance 1010 380 Weight 80.5 kg Intake: IV 50 600 Sodium Chloride 0.9% 1, 600 000 ml @ 75 mls/hr IV . [id number] [facility] Rx#:[id number] Oral 960 180 Output: Urine 400 Other: Voiding Method Toilet # Voids 3 1 1 - Exam PHYSICAL EXAMINATION: GENERAL: 73-year-old female in no acute distress at the time of my examination HEENT: Head is atraumatic, normocephalic. Pupils equal, round. Sclera anicteric. Conjunctiva are clear. Mucous membranes of the mouth are moist. Neck is supple. There is no elevated jugular venous pressure. No carotid bruit is heard. HEART EXAMINATION: Heart S1, S2 normal. No murmur or gallop heard. CHEST EXAMINATION: Lungs are clear to auscultation and precussion. No chest wall tenderness is noted on palpation or with deep breathing. ABDOMEN: Soft, nontender. Bowel sounds are heard. No organomegaly noted. EXTREMITIES: 1+ peripheral pulses with no evidence of peripheral edema and no calf tenderness noted. Right radial site clean and dry, good distal pulse. Mild ecchymosis noted. NEUROLOGIC patient is awake, alert and oriented 3 . . - Labs CBC & Chem 7: 11/26/18 05:53 11/26/18 05:53 Labs: Abnormal Lab Results - Last 24 Hours (Table) 11/25/18 11/25/18 11/25/18 Range/Units 06:22 06:22 11:30 RBC (3.80-5.40) m/uL Hgb (11.4-16.0) gm/dL Hct (34.0-46.0) % Sodium (137-145) mmol/L Glucose (74-99) mg/dL POC Glucose (mg/dL) 219 H (75-99) mg/dL Hemoglobin A1c 8.1 H (4.0-6.0) % Calcium (8.4-10.2) mg/dL Total Protein (6.3-8.2) g/dL Albumin (3.5-5.0) g/dL HDL Cholesterol 30 L (40-60) mg/dL TSH 0.175 L (0.465-4.680) mIU/L 11/25/18 11/25/18 11/26/18 Range/Units 16:45 21:16 05:52 RBC (3.80-5.40) m/uL Hgb (11.4-16.0) gm/dL Hct (34.0-46.0) % Sodium (137-145) mmol/L Glucose (74-99) mg/dL POC Glucose (mg/dL) 275 H 299 H 209 H (75-99) mg/dL Hemoglobin A1c (4.0-6.0) % Calcium (8.4-10.2) mg/dL Total Protein (6.3-8.2) g/dL Albumin (3.5-5.0) g/dL HDL Cholesterol (40-60) mg/dL TSH (0.465-4.680) mIU/L 11/26/18 11/26/18 Range/Units 05:53 05:53 RBC 3.68 L (3.80-5.40) m/uL Hgb 10.9 L (11.4-16.0) gm/dL Hct 31.9 L (34.0-46.0) % Sodium 136 L (137-145) mmol/L Glucose 201 H (74-99) mg/dL POC Glucose (mg/dL) (75-99) mg/dL Hemoglobin A1c (4.0-6.0) % Calcium 8.3 L (8.4-10.2) mg/dL Total Protein 5.8 L (6.3-8.2) g/dL Albumin 3.0 L (3.5-5.0) g/dL HDL Cholesterol (40-60) mg/dL TSH (0.465-4.680) mIU/L Assessment and Plan Plan: Assessment and plan #1 syncope with abnormality noted in troponin, non-Q-wave myocardial infarction , status post cardiac catheterization which revealed multivessel coronary artery disease, surgical consultation has been requested. #2 known history of coronary artery disease with prior RCA stenting #3 hypertension #4 hyperlipidemia #5 peripheral vascular disease with history of infrarenal aortic stent and stenting of the right common iliac artery #6 prior history of smoking Plan Patient will be seen by cardiothoracic surgery, and further recommendations then will be made. They have requested that the patient's Plavix be discontinued. DNP note has been reviewed, I agree with a documented findings and plan of care. Patient was seen and examined.
[2018-11-26 11:55] LABS: Glucose,Whole Blood 217 mg/dL (75-99)
[2018-11-26 12:41] LABS: Appearance,Urine Cloudy (Clear); Bacteria,Urine Moderate /hpf; Bilirubin,Urine Negative (Negative); Blood,Urine Negative (Negative); Color,Urine Light Yellow; Glucose,Urine (UA) 3+ (Negative); Ketones,Urine Negative (Negative); Leukocyte Esterase,Urine Large (Negative); Mucus,Urine Rare /hpf; Nitrite,Urine Positive (Negative); PH, Urine 5.5 (5.0-8.0); Protein,Urine Negative (Negative); Specific Gravity,Urine 1.007 (1.001-1.035); Squamous Epithelial Cell,Urine <1 /hpf (0-4); Urobilinogen,Urine <2.0 mg/dL (<2.0); WBC,Urine 35 /hpf (0-5)
--- NOTE | 2018-11-26 13:15 | P.CNPUL ---
History of Present Illness Consult date: 11/26/18 Chief complaint: Multivessel coronary artery disease, pulmonary evaluation for thoracotomy History of present illness: Bia 3-year-old female patient, known diabetic, also known to have coronary artery disease with previous stenting of the RCA in addition to peripheral vascular disease, hypothyroidism and osteoarthritis. The patient was admitted to the hospital because of increased weakness and she also had a episodes of loss of consciousness. Further workup was done including an echocardiogram that showed a normal ejection fraction of 60-65% without any significant valvular abnormalities. The cardiac catheterization showed 50% stenosis of the left main, 60% of the RCA, 80% of the circumflex and 80% to the proximal LAD. Based on this, CT surgery consultation was obtained for cardiac bypass surgery. The patient is feeling of any chest pain. The patient is calm and comfortable. Hemodynamically stable. She has taken a tablet of aspirin and Plavix yesterday. No shortness of breath. She has good performance status. She is able to climb a flight of stairs without any major difficulties. She is a remote ex-smoker. No asthma. No emphysema. No recurrent bouts of pneumonias. No recurrent bouts of bronchitis. No use of any respiratory medications or inhalers. No oxygen therapy. No DVTs. No pulmonary embolism. She has history of claudication and the patient has undergone PT be a and stenting of the right and left common iliac arteries. She is resting comfortably in bed. No other significant events. Computed tomography scan of the chest was reviewed and there is no significant abnormalities noted. The carotid Dopplers showed forced percent stenosis of the both internal carotid arteries. There is bilateral plaque formation. Review of Systems Constitutional: Denies chills, Denies fever Eyes: denies as per HPI, denies blurred vision, denies bulging eye, denies decreased vision, denies diplopia, denies discharge, denies dry eye, denies irritation, denies itching, denies pain, denies photophobia, denies loss of peripheral vision, denies loss of vision, denies tunnel vision/blind spots Ears: deny: decreased hearing, ear discharge, earache, tinnitus Ears, nose, mouth and throat: Reports as per HPI Breasts: absent: as per HPI, change in shape, gynecomastia, masses, nipple discharge, pain, skin changes, swelling Cardiovascular: Reports dyspnea on exertion Respiratory: Denies cough Gastrointestinal: Denies abdominal pain, Denies diarrhea, Denies nausea, Denies vomiting Genitourinary: Denies dysuria, Denies hematuria Menstruation: Reports as per HPI Musculoskeletal: Reports as per HPI Musculoskeletal: absent: ankle pain, ankle stiffness, ankle swelling, as per HPI , elbow pain, elbow stiffness, elbow swelling, foot pain, foot stiffness, foot swelling, hand pain, hand stiffness, hand swelling, hip pain, hip stiffness, hip swelling, knee pain, knee stiffness, knee swelling, shoulder pain, shoulder stiffness, shoulder swelling, wrist pain, wrist stiffness, wrist swelling Integumentary: Reports as per HPI Neurological: Reports syncope Psychiatric: Reports as per HPI Endocrine: Reports as per HPI Hematologic/Lymphatic: Reports as per HPI Past Medical History Past Medical History: Coronary Artery Disease (CAD), Chest Pain / Angina, Diabetes Mellitus, Eye Disorder, Hyperlipidemia, Hypertension, Myocardial Infarction (non Q-wave), Osteoarthritis (OA), Thyroid Disorder, Vascular Disorder Additional Past Medical History / Comment(s): 2000 HX ASHD, peripheral arterial disease, intermittent claudication involving infra renal aorta and rt and lt common iliac arteries (had stents palced), bilat cataracts, glaucoma L eye with stent. Last Myocardial Infarction Date:: 2000 History of Any Multi-Drug Resistant Organisms: None Reported Past Surgical History: Adenoidectomy, Heart Catheterization With Stent, Tonsillectomy, Tubal Ligation Additional Past Surgical History / Comment(s): EXP. LAP 02/2012, STENT TO HEART X1, INFRARENAL AORTA STENT, STENTS TO RIGHT AND LEFT COMMONI ILLIAC ARTERIES. AORTOGRAM WITH RUNOFF 02/02/14 @ [facility] Past Anesthesia/Blood Transfusion Reactions: No Reported Reaction Additional Past Anesthesia/Blood Transfusion Reaction / Comment(s): pt states she has never had a blood transfusion Date of Last Stent Placement:: 2000 Past Psychological History: No Psychological Hx Reported Smoking Status: Former smoker Past Alcohol Use History: Occasional Additional Past Alcohol Use History / Comment(s): STARTED SMOKING AGE 28 (1963) , QUIT 2003, SMOKED 2PPD Past Drug Use History: None Reported - Past Family History Mother Family Medical History: Dementia Additional Family Medical History / Comment(s): HEART PROBLEMS Father Family Medical History: Coronary Artery Disease (CAD), Myocardial Infarction ([place] ) Additional Family Medical History / Comment(s): Her father at age 79 with a myocardial infarction. Medications and Allergies Home Medications Medication Instructions Recorded Confirmed Type Aspirin 81 mg PO DAILY 01/31/14 11/24/18 History Clopidogrel [Plavix] 75 mg PO DAILY 01/31/14 11/24/18 History Ergocalciferol [Vitamin D2 50,000 units PO Q15D 01/31/14 11/24/18 History (DRISDOL)] Ezetimibe [Zetia] 10 mg PO DAILY 01/31/14 11/24/18 History Hydrochlorothiazide [Hydrodiuril] 25 mg PO DAILY 01/31/14 11/24/18 History Levothyroxine Sodium [Synthroid] 125 mcg PO -BRKT 01/31/14 11/24/18 History Liraglutide [Victoza 2-Luiz] 1.8 mg SQ -KT 01/31/14 11/24/18 History Lisinopril 40 mg PO DAILY 01/31/14 11/24/18 History Metoprolol Succinate [Toprol XL] 100 mg PO DAILY 01/31/14 11/24/18 History Nitroglycerin Sl Tabs [Nitrostat] 0.4 mg SUBLINGUAL Q5M PRN #25 tab 03/16/18 Rx metFORMIN HCL [Glucophage] 500 mg PO BID #0 03/16/18 11/24/18 Rx Atorvastatin [Lipitor] 80 mg PO DAILY 11/24/18 11/24/18 History Glimepiride [Amaryl] 6 mg PO -BRKT 11/24/18 11/24/18 History Isosorbide Mononitrate ER [Imdur] 15 mg PO DAILY 11/24/18 11/24/18 History Allergies Allergy/AdvReac Type Severity Reaction Status Date / Time hydromorphone HCl Allergy RESPIRATORY Verified 11/24/18 11:46 [From Dilaudid] DEPRESSION Physical Exam Vitals: Vital Signs Temp Pulse Pulse Resp BP BP Pulse Ox 11/26/18 11:19 98.9 F 77 16 143/65 96 11/26/18 08:30 99 F 83 20 164/74 95 11/26/18 08:24 98 11/26/18 03:19 97.8 F 72 18 136/72 98 11/25/18 23:39 70 18 146/60 97 11/25/18 20:00 98 F 68 18 148/60 96 11/25/18 18:30 74 16 146/64 96 11/25/18 17:30 72 16 142/67 95 11/25/18 16:30 80 16 145/63 96 11/25/18 16:00 75 16 152/65 95 11/25/18 15:30 75 16 150/69 95 11/25/18 15:15 72 16 148/69 95 11/25/18 15:00 76 16 150/67 96 11/25/18 14:45 69 16 135/60 96 11/25/18 14:30 68 16 138/63 97 Intake and Output 11/25/18 11/26/18 11/26/18 22:59 06:59 14:59 Intake Total 240 780 Output Total 400 Balance 240 380 Intake: IV 600 Sodium Chloride 0.9% 1, 600 000 ml @ 75 mls/hr IV . [id number] [facility] Rx#:[id number] Oral 240 180 Output: Urine 400 Other: Voiding Method Toilet # Voids 3 1 1 Weight 80.5 kg - General well developed, well nourished, no distress, no pain, obese - Eyes PERRL, normal ocular movement - ENT normal pinna, normal nares, normal mucosa, no hearing loss, no congestion - Neck No lymphadenopathy, neck is supple. no masses, trachea midline, no venous distension carotid bruit: right - Respiratory Lung sounds are essentially clear throughout, diminished her bilateral bases. Respirations are symmetrical and nonlabored. Oxygen saturation are 97% on room air. - Cardiovascular Regular rhythm and rate. S1 and S2 present, negative for S3, gallop or murmur. No edema present. - Abdomen Abdomen soft, nontender and nondistended. Active bowel sounds all 4 abdominal quadrants. No organomegaly. No guarding or rigidity. - Genitourinary Deferred - Rectum Deferred - Integumentary Left foot fifth toe with gauze dressing clean dry and intact. Ecchymotic area to her forehead. no rash, no growths, no abnormal pigmentation - Neurologic normal coordination, normal sensation - Musculoskeletal normal gait, normal posture - Psychiatric oriented to time, oriented to person, oriented to place, speech is normal, memory intact Results - Laboratory Findings CBC and BMP: 11/26/18 05:53 11/26/18 05:53 PT/INR, D-dimer PT 9.7 sec (9.0-12.0) 11/26/18 05:53 INR 0.9 (<1.2) 11/26/18 05:53 D-Dimer 1.22 mg/L FEU (<0.60) H 11/24/18 13:39 Abnormal lab findings: Abnormal Labs 11/24/18 11/24/18 11/24/18 13:39 13:39 19:16 RBC Hgb Hct APTT D-Dimer 1.22 H Sodium Chloride Glucose POC Glucose (mg/dL) Hemoglobin A1c Calcium CK-MB (CK-2) 2.6 H Troponin I 0.311 H* 0.308 H* Total Protein Albumin HDL Cholesterol TSH Urine Appearance Urine Glucose (UA) Urine Nitrite Ur Leukocyte Esterase Urine WBC Urine Bacteria Urine Mucus 11/24/18 11/24/18 11/25/18 20:25 21:13 06:22 RBC Hgb Hct APTT 74.2 H D-Dimer Sodium Chloride 108 H Glucose 214 H POC Glucose (mg/dL) 216 H Hemoglobin A1c Calcium CK-MB (CK-2) Troponin I Total Protein Albumin HDL Cholesterol 31 L TSH Urine Appearance Urine Glucose (UA) Urine Nitrite Ur Leukocyte Esterase Urine WBC Urine Bacteria Urine Mucus 11/25/18 11/25/18 11/25/18 06:22 06:22 06:22 RBC Hgb Hct APTT 77.7 H D-Dimer Sodium Chloride Glucose POC Glucose (mg/dL) Hemoglobin A1c 8.1 H Calcium CK-MB (CK-2) Troponin I Total Protein Albumin HDL Cholesterol 30 L TSH 0.175 L Urine Appearance Urine Glucose (UA) Urine Nitrite Ur Leukocyte Esterase Urine WBC Urine Bacteria Urine Mucus 11/25/18 11/25/18 11/25/18 06:23 11:30 16:45 RBC Hgb Hct APTT D-Dimer Sodium Chloride Glucose POC Glucose (mg/dL) 211 H 219 H 275 H Hemoglobin A1c Calcium CK-MB (CK-2) Troponin I Total Protein Albumin HDL Cholesterol TSH Urine Appearance Urine Glucose (UA) Urine Nitrite Ur Leukocyte Esterase Urine WBC Urine Bacteria Urine Mucus 11/25/18 11/26/18 11/26/18 21:16 05:52 05:53 RBC 3.68 L Hgb 10.9 L Hct 31.9 L APTT D-Dimer Sodium Chloride Glucose POC Glucose (mg/dL) 299 H 209 H Hemoglobin A1c Calcium CK-MB (CK-2) Troponin I Total Protein Albumin HDL Cholesterol TSH Urine Appearance Urine Glucose (UA) Urine Nitrite Ur Leukocyte Esterase Urine WBC Urine Bacteria Urine Mucus 11/26/18 11/26/18 11/26/18 05:53 11:42 12:00 RBC Hgb Hct APTT D-Dimer Sodium 136 L Chloride Glucose 201 H POC Glucose (mg/dL) 217 H Hemoglobin A1c Calcium 8.3 L CK-MB (CK-2) Troponin I Total Protein 5.8 L Albumin 3.0 L HDL Cholesterol TSH Urine Appearance Cloudy H Urine Glucose (UA) 3+ H Urine Nitrite Positive H Ur Leukocyte Esterase Large H Urine WBC 35 H Urine Bacteria Moderate H Urine Mucus Rare H - Diagnostic Findings Chest x-ray: image reviewed CT scan - chest: image reviewed Assessment and Plan Plan: Assessment 1 symptomatic multivessel coronary artery disease, awaiting cardiac bypass surgery. The patient is post syncope. The patient is post non-STEMI. 2 peripheral vascular disease with history of claudication and the patient has undergone previous PTBA and stenting of the iliacs bilaterally 3 diabetes mellitus 4 bilateral carotid stenosis, 40% of the internal carotids, not hemodynamically significant 5 hyperlipidemia 6 hypothyroidism 7 hypertension 8 previous history of coronary stenting of the RCA and previous history of non-Q -wave [place] 9 glucoma 10 bilateral cataracts Plan Pulmonary status is stable. I do not see any ongoing pulmonary issues for now that showed be a problem or prevent this patient from having a cardiac surgery. We'll obtain a bedside spirometry. Computed tomography scan of the chest was reviewed. We'll be on standby and will be involved in the postoperative pulmonary care, ventilator management and ICU management. We'll continue to follow
[2018-11-26 17:18] LABS: Glucose,Whole Blood 129 mg/dL (75-99)
[2018-11-26] MEDS: CLOPIDOGREL 75 MG TAB PO SCH (19:42)
[2018-11-26 20:22] LABS: Glucose,Whole Blood 163 mg/dL (75-99)
--- NOTE | 2018-11-26 21:03 | PN ---
PROGRESS NOTE DATE OF SERVICE: November 26, 2018. PRESENTING COMPLAINT: Syncope. INTERVAL HISTORY: This patient presented with recurrent syncope, felt to be from underlying acute non-Q- wave [place]. Did undergo cardiac catheterization showing severe triple-vessel disease. Cardiothoracic surgery was consulted. Lying in bed, a bit tired. Several family members present. REVIEW OF SYSTEMS: Done for constitutional, cardiovascular, GI, pulmonary; relevant findings as above. CURRENT MEDICATIONS: Reviewed that include aspirin, Lipitor, Imdur, Synthroid, Glucophage. PHYSICAL EXAMINATION: VITAL SIGNS: Temperature 98.6, pulse 84, respiration 20, blood pressure 143/70, pulse ox 95% on room air. GENERAL APPEARANCE: Sitting up, tired. EYES: Pupils are equal. Conjunctivae normal. NECK: JVD not raised. RESPIRATORY: Effort normal. LUNGS are clear. CARDIOVASCULAR: 1st and 2nd sounds normal. No edema. ABDOMEN: Soft, nontender. Liver and spleen not palpable. PSYCHIATRY: Alert and oriented x3. Mood and affect normal. INVESTIGATIONS: White count 4.2, hemoglobin 10.9, potassium 3.7. BUN and creatinine is normal. Accu- Cheks are noted. UA positive. ASSESSMENT: 1. Acute non-Q-wave myocardial infarction in a patient with known coronary artery disease. Cardiac cath showing severe triple-vessel coronary artery disease. 2. Diabetes mellitus type 2 on oral hypoglycemic. 3. Essential hypertension. 4. Hyperlipidemia. 5. Primary osteoarthritis. 6. Hypothyroid. 7. Peripheral artery disease. 8. Acute urinary tract infection from cystitis. PLAN: Care was discussed with the patient. Awaiting coronary bypass. Seen by Cardiothoracic surgery. We will start the patient on IV ceftriaxone. MMODL / IJN: [id number] /
[2018-11-27 06:18] LABS: Glucose,Whole Blood 141 mg/dL (75-99)
[2018-11-27 06:26] LABS: Basophils % (A) 1 %; Eosinophils # (A) 0.1 k/uL (0-0.7); Eosinophils % (A) 2 %; HGB 11.4 gm/dL (11.4-16.0); Lymphocytes # (A) 1.2 k/uL (1.0-4.8); Lymphocytes % (A) 27 %; MCH 28.7 pg (25.0-35.0); MCHC 33.4 g/dL (31.0-37.0); MCV 85.7 fL (80.0-100.0); Mean Platelet Volume 6.4; Monocytes # (A) 0.3 k/uL (0-1.0); Monocytes % (A) 6 %; Neutrophils # (A) 2.8 k/uL (1.3-7.7); Neutrophils % (A) 62 %; Platelet Count 196 k/uL (150-450); RBC 3.97 m/uL (3.80-5.40); RDW 13.4 % (11.5-15.5); WBC 4.4 k/uL (3.8-10.6)
[2018-11-27] MEDS: LEVOTHYROXINE 125 MCG TAB PO SCH (06:28)
[2018-11-27] MEDS: GLIMEPIRIDE 4 MG TAB PO SCH (06:29)
[2018-11-27 06:32] LABS: INR 0.9 (<1.2)
[2018-11-27 06:34] LABS: Calcium 8.8 mg/dL (8.4-10.2); Potassium 3.8 mmol/L (3.5-5.1)
--- NOTE | 2018-11-27 08:20 | P.PN ---
Subjective Progress Note Date: 11/27/18 Principal diagnosis: Symptomatic multivessel coronary artery disease with left main disease, non- STEMI, syncopal episodes. Previous medical history of known coronary artery disease and myocardial infarction with stenting to the right coronary artery, diabetes, hypertension, hyperlipidemia, previous tobacco dependence, peripheral artery disease with previous bilateral lower extremity stent placement, infrarenal aortic stent, and failed attempt at aortofemoral bypass, hypothyroidism, osteoarthritis, obesity, and family history of coronary artery disease. Preoperative urinary tract infection. The patient is currently sitting up in bed in no acute distress. She denies any pain or shortness of breath. She has ambulated without difficulty. She remains in normal sinus rhythm and has had no more episodes of syncope. No new concerns at this time. Objective - Vital Signs Vital signs: Vital Signs Temp 97.4 F L 11/27/18 04:00 Pulse 89 11/27/18 04:00 Resp 17 11/27/18 04:00 BP 158/70 11/27/18 04:00 Pulse Ox 94 L 11/27/18 04:00 Intake & Output 11/26/18 11/27/18 11/27/18 18:59 06:59 18:59 Intake Total 1010 30 Output Total 1150 Balance -140 30 Weight 80.1 kg Intake: IV 600 30 Invasive Line 1 30 Sodium Chloride 0.9% 1, 600 000 ml @ 75 mls/hr IV . [id number] COUNTS INCLUDE 234 BEDS AT THE [facility] Rx#:[id number] Oral 410 Output: Urine 1150 Other: Voiding Method Toilet Toilet # Voids 4 1 - Constitutional General appearance: Present: cooperative, no acute distress, obese - Respiratory Details: Lungs sounds clear bilaterally. Respirations even, nonlabored. Currently on room air with oxygen saturation 94%. Able to achieve 1500 mL on her incentive spirometry. Strong cough. - Cardiovascular Details: S1, S2 present. Regular rate and rhythm, sinus rhythm on telemetry. Palpable peripheral pulses bilaterally. No edema present. No calf pain or tenderness noted. - Gastrointestinal Gastrointestinal Comment(s): Abdomen soft, nontender, nondistended. Active bowel sounds 4 quadrants. Tolerating diet. - Genitourinary Genitourinary Comment(s): Continues to void clear, yellow urine. - Integumentary Integumentary Comment(s): Skin is warm and dry with evidence of good perfusion. Clean and dry dressing present to left baby toe. - Neurologic Neurologic: Present: CNII-XII intact - Musculoskeletal Musculoskeletal: Present: gait normal, strength equal bilaterally - Psychiatric Psychiatric: Present: A&O x's 3, appropriate affect, intact judgment & insight - Allied health notes Allied health notes reviewed: nursing - Labs CBC & Chem 7: 11/27/18 05:29 11/27/18 05:29 Labs: Abnormal Lab Results - Last 24 Hours (Table) 11/26/18 11/26/18 11/26/18 Range/Units 11:42 12:00 17:13 Glucose (74-99) mg/dL POC Glucose (mg/dL) 217 H 129 H (75-99) mg/dL Urine Appearance Cloudy H (Clear) Urine Glucose (UA) 3+ H (Negative) Urine Nitrite Positive H (Negative) Ur Leukocyte Esterase Large H (Negative) Urine WBC 35 H (0-5) /hpf Urine Bacteria Moderate H (None) /hpf Urine Mucus Rare H (None) /hpf 11/26/18 11/27/18 11/27/18 Range/Units 20:21 05:29 06:09 Glucose 136 H (74-99) mg/dL POC Glucose (mg/dL) 163 H 141 H (75-99) mg/dL Urine Appearance (Clear) Urine Glucose (UA) (Negative) Urine Nitrite (Negative) Ur Leukocyte Esterase (Negative) Urine WBC (0-5) /hpf Urine Bacteria (None) /hpf Urine Mucus (None) /hpf Microbiology - Last 24 Hours (Table) 11/26/18 12:00 Urine Culture - Preliminary Urine,Clean Catch 11/25/18 11:20 Nasal Screen MRSA/MSSA - Preliminary Nasal Swab Assessment and Plan Assessment: 1. Symptomatic multivessel coronary artery disease with left main disease, non- STEMI 2. Syncopal episodes, no significant carotid artery stenosis 3. History of known coronary artery disease and myocardial infarction with stenting to the right coronary artery 4. Uncontrolled diabetes with current hemoglobin A1c 8.1% 5. Hypertension 6. Hyperlipidemia 7. Previous tobacco dependence with current FEV1 81% of predicted 8. Peripheral artery disease with previous bilateral lower extremity stent placement, infrarenal aortic stent, and failed attempt at aortofemoral bypass 9. Hypothyroidism 10. Obesity 11. Family history of coronary artery disease 12. Osteoarthritis Plan: 1. Continue aspirin, statin/Zetia, MEL inhibitor, beta dante therapy. Plavix discontinued, last dose 11/25/2018. 2. Encourage incentive spirometry 10 times every hour while awake 3. Reinforce preoperative teaching 4. Will complete 5 m walk test today. 5. Will calculate STS risk score and discuss with the patient 6. Continue medical management per primary care service. IV Rocephin started for urinary tract infection per Dr. Briceno 7. Our plan is for coronary artery bypass graft surgery towards the end of the week with Dr. Olivares. 8. More recommendations to follow. Time with Patient: Greater than 30
[2018-11-27] MEDS: METOPROLOL SUCCINATE (ER) 100 MG TAB.ER.24H PO SCH (09:02)
[2018-11-27] MEDS: ASPIRIN 81 MG PO SCH (09:02)
[2018-11-27] MEDS: ATORVASTATIN 80 MG TAB PO SCH (09:02)
[2018-11-27] MEDS: EZETIMIBE 10 MG TAB PO SCH (09:02)
[2018-11-27] MEDS: Liraglutide [Victoza 2-Pak] 1.8 MG SQ SCH (09:02)
[2018-11-27] MEDS: ISOSORBIDE MONONITRATE ER 15 MG TAB PO SCH (09:03)
[2018-11-27] MEDS: MUPIROCIN 2% OINT 22 GM TUBE NASAL SCH ×2 (09:03→20:48)
[2018-11-27 11:54] LABS: Glucose,Whole Blood 172 mg/dL (75-99)
--- NOTE | 2018-11-27 12:58 | P.PN ---
Subjective this is a pleasant 73-year-old female past medical history significant for diabetes, hypertension, dyslipidemia, coronary artery disease and peripheral arterial disease. She underwent cardiac catheterization revealing calcified right and left coronary systems severe triple vessel coronary artery disease and severe disease involving the left main coronary artery. She has been seen in consultation by CT surgery and has been recommended for bypass grafting. She is seen and examined sitting up in bed in no acute distress. She denies symptoms of chest discomfort, shortness of breath , dizziness or palpitations. Blood pressure 108/57 heart rate 83 afebrile maintaining oxygen saturation on room air. Laboratory data reviewed, WBC 4.4, hemoglobin 11.4, platelets 196, sodium 138, potassium 3.8, creatinine 0.92. Current cardiac medications include aspirin 81 mg daily, atorvastatin 80 mg daily, setting 10 mg daily, Imdur 15 mg daily, lisinopril 40 mg daily and Toprol 100 mg daily. GENERAL: Well-appearing, well-nourished and in no acute distress. NECK: Supple without JVD or thyromegaly. LUNGS: Breath sounds clear to auscultation bilaterally. Respiration equal and unlabored. No wheezes, rales or rhonchi. HEART: Regular rate and rhythm without murmurs, rubs or gallops. S1 and S2 heard. EXTREMITIES: Normal range of motion, no edema. No clubbing or cyanosis. Peripheral pulses intact. right radial site with significant ecchymosis noted, pulses strong. ASSESSMENT [id number] [place] Known history of coronary artery disease Hypertension Dyslipidemia Peripheral vascular disease Former nicotine dependence PLAN Continue current medical regimen. Plans are for bypass surgery with Dr. Olivares next week. Continue aspirin, atorvastatin/zetia, lisinopril, imdur and toprol as previously ordered. Nurse Practitioner note has been reviewed, I agree with a documented findings and plan of care. Patient was seen and examined. Objective - Vital Signs Vital signs: Vital Signs Temp 98.5 F 11/27/18 11:28 Pulse 83 11/27/18 11:28 Resp 16 11/27/18 11:28 BP 108/57 11/27/18 11:28 Pulse Ox 97 11/27/18 11:28 Intake & Output 11/26/18 11/27/18 11/27/18 18:59 06:59 18:59 Intake Total 1010 30 240 Output Total 1150 Balance -140 30 240 Weight 80.1 kg Intake: IV 600 30 Invasive Line 1 30 Sodium Chloride 0.9% 1, 600 000 ml @ 75 mls/hr IV . [id number] Rx#:[id number] Oral 410 240 Output: Urine 1150 Other: Voiding Method Toilet Toilet Toilet # Voids 4 1 1 - Labs CBC & Chem 7: 11/27/18 05:29 11/27/18 05:29 Labs: Abnormal Lab Results - Last 24 Hours (Table) 11/26/18 11/26/18 11/27/18 Range/Units 17:13 20:21 05:29 Glucose 136 H (74-99) mg/dL POC Glucose (mg/dL) 129 H 163 H (75-99) mg/dL 11/27/18 11/27/18 Range/Units 06:09 11:40 Glucose (74-99) mg/dL POC Glucose (mg/dL) 141 H 172 H (75-99) mg/dL Microbiology - Last 24 Hours (Table) 11/26/18 12:00 Urine Culture - Preliminary Urine,Clean Catch 11/25/18 11:20 Nasal Screen MRSA/MSSA - Preliminary Nasal Swab
--- NOTE | 2018-11-27 14:38 | P.PN ---
Subjective Progress Note Date: 11/27/18 On today's evaluation, the patient is resting comfortably in bed. The patient has no specific complaint. She has triple-vessel disease awaiting bypass surgery. No chest pain. No shortness of breath. No palpitation. No dizziness. Medications were all reviewed. Objective - Vital Signs Vital signs: Vital Signs Temp 98.5 F 11/27/18 11:28 Pulse 83 11/27/18 11:28 Resp 16 11/27/18 11:28 BP 108/57 11/27/18 11:28 Pulse Ox 97 11/27/18 11:28 Intake & Output 11/26/18 11/27/18 11/27/18 18:59 06:59 18:59 Intake Total 1010 30 240 Output Total 1150 Balance -140 30 240 Weight 80.1 kg Intake: IV 600 30 Invasive Line 1 30 Sodium Chloride 0.9% 1, 600 000 ml @ 75 mls/hr IV . [id number] [facility] Rx#:[id number] Oral 410 240 Output: Urine 1150 Other: Voiding Method Toilet Toilet Toilet # Voids 4 1 1 - Exam - General well developed, well nourished, no distress, no pain, obese - Eyes PERRL, normal ocular movement - ENT normal pinna, normal nares, normal mucosa, no hearing loss, no congestion - Neck No lymphadenopathy, neck is supple. no masses, trachea midline, no venous distension carotid bruit: right - Respiratory Lung sounds are essentially clear throughout, diminished her bilateral bases. Respirations are symmetrical and nonlabored. Oxygen saturation are 97% on room air. - Cardiovascular Regular rhythm and rate. S1 and S2 present, negative for S3, gallop or murmur. No edema present. - Abdomen Abdomen soft, nontender and nondistended. Active bowel sounds all 4 abdominal quadrants. No organomegaly. No guarding or rigidity. - Genitourinary Deferred - Rectum Deferred - Integumentary Left foot fifth toe with gauze dressing clean dry and intact. Ecchymotic area to her forehead. no rash, no growths, no abnormal pigmentation - Neurologic normal coordination, normal sensation - Musculoskeletal normal gait, normal posture - Psychiatric oriented to time, oriented to person, oriented to place, speech is normal, memory intact - Labs CBC & Chem 7: 11/27/18 05:29 11/27/18 05:29 Labs: Abnormal Lab Results - Last 24 Hours (Table) 11/26/18 11/26/18 11/27/18 Range/Units 17:13 20:21 05:29 Glucose 136 H (74-99) mg/dL POC Glucose (mg/dL) 129 H 163 H (75-99) mg/dL 11/27/18 11/27/18 Range/Units 06:09 11:40 Glucose (74-99) mg/dL POC Glucose (mg/dL) 141 H 172 H (75-99) mg/dL Microbiology - Last 24 Hours (Table) 11/26/18 12:00 Urine Culture - Preliminary Urine,Clean Catch 11/25/18 11:20 Nasal Screen MRSA/MSSA - Preliminary Nasal Swab Assessment and Plan Plan: Assessment 1 symptomatic multivessel coronary artery disease, awaiting cardiac bypass surgery. The patient is post syncope. The patient is post non-STEMI. 2 peripheral vascular disease with history of claudication and the patient has undergone previous PTBA and stenting of the iliacs bilaterally 3 diabetes mellitus 4 bilateral carotid stenosis, 40% of the internal carotids, not hemodynamically significant 5 hyperlipidemia 6 hypothyroidism 7 hypertension 8 previous history of coronary stenting of the RCA and previous history of non-Q -wave [place] 9 glucoma 10 bilateral cataracts Plan Pulmonary status is stable. Continue current medication. Bypass surgery for next week. Continue aspirin, Lipitor, Toprol, lisinopril and Imdur. Continues incentive spirometer. UA was abnormal and the patient was given a course of ceftriaxone.
[2018-11-27] MEDS ORDERED: LACTULOSE 20 GM/30 ML CUP PO ONE (14:44)
[2018-11-27] MEDS: LISINOPRIL 20 MG TAB PO SCH (15:59)
[2018-11-27 16:47] LABS: Glucose,Whole Blood 137 mg/dL (75-99)
[2018-11-27] MEDS: metFORMIN 500 MG TAB PO SCH (18:07)
--- NOTE | 2018-11-27 19:34 | PN ---
PROGRESS NOTE DATE OF SERVICE: November 27, 2018. PRESENTING COMPLAINT: Syncope. INTERVAL HISTORY: The patient with recurrent syncope, found to have severe triple-vessel disease from underlying acute non-Q-wave myocardial infarction. The patient is awaiting coronary artery bypass, is probably being scheduled for next Wednesday. The patient's family members are present. No new issues. REVIEW OF SYSTEMS: Done for constitutional, cardiovascular, GI, pulmonary and relevant findings as above. CURRENT MEDICATIONS: Reviewed. PHYSICAL EXAMINATION: VITAL SIGNS: Temperature 98, pulse 84, respiration 16, blood pressure 130/65, pulse ox 95% on room air. GENERAL APPEARANCE: Lying in bed comfortable. EYES: Pupils equal. Conjunctivae normal. NECK: JVD not raised. Mass not palpable. RESPIRATORY: Effort normal. LUNGS are clear. CARDIOVASCULAR: First and second sounds normal. No edema. ABDOMEN: Soft, nontender. Liver and spleen not palpable. PSYCHIATRY: Alert and oriented times three. Mood and affect normal. INVESTIGATIONS: Accu-Cheks are noted. ASSESSMENT: 1. Acute non-Q-wave myocardial infarction with cardiac cath showing severe triple- vessel coronary artery disease. 2. Severe triple-vessel coronary artery disease pending coronary artery bypass. 3. Diabetes mellitus type 2 on oral hypoglycemic. 4. Essential hypertension. 5. Hyperlipidemia. 6. Primary osteoarthritis. 7. Hypothyroid. 8. Peripheral artery disease. 9. Acute urinary tract infection from cystitis. PLAN: Continue current medication and treatment plan including will complete a 3 day course of IV ceftriaxone. Follow. MMODL / IJN: [id number] /
[2018-11-27 21:14] LABS: Glucose,Whole Blood 202 mg/dL (75-99)
[2018-11-28 06:23] LABS: Glucose,Whole Blood 175 mg/dL (75-99)
[2018-11-28] MEDS: metFORMIN 500 MG TAB PO SCH (06:34)
[2018-11-28] MEDS: GLIMEPIRIDE 4 MG TAB PO SCH (06:34)
[2018-11-28] MEDS: LEVOTHYROXINE 125 MCG TAB PO SCH (06:34)
[2018-11-28 08:25] LABS: Basophils # (A) 0.1 k/uL (0-0.2); Basophils % (A) 1 %; Eosinophils # (A) 0.1 k/uL (0-0.7); Eosinophils % (A) 2 %; HCT 37.8 % (34.0-46.0); HGB 12.2 gm/dL (11.4-16.0); Lymphocytes # (A) 1.7 k/uL (1.0-4.8); Lymphocytes % (A) 31 %; MCH 28.4 pg (25.0-35.0); MCHC 32.3 g/dL (31.0-37.0); MCV 87.8 fL (80.0-100.0); Mean Platelet Volume 6.6; Monocytes # (A) 0.2 k/uL (0-1.0); Monocytes % (A) 4 %; Neutrophils # (A) 3.4 k/uL (1.3-7.7); Neutrophils % (A) 60 %; Platelet Count 233 k/uL (150-450); RDW 13.7 % (11.5-15.5); WBC 5.6 k/uL (3.8-10.6)
[2018-11-28] MEDS: ATORVASTATIN 80 MG TAB PO SCH (08:29)
[2018-11-28] MEDS: ISOSORBIDE MONONITRATE ER 15 MG TAB PO SCH (08:29)
[2018-11-28] MEDS: ASPIRIN 81 MG PO SCH (08:29)
[2018-11-28] MEDS: EZETIMIBE 10 MG TAB PO SCH (08:29)
[2018-11-28] MEDS: METOPROLOL SUCCINATE (ER) 100 MG TAB.ER.24H PO SCH (08:29)
[2018-11-28] MEDS: LISINOPRIL 20 MG TAB PO SCH (08:29)
[2018-11-28] MEDS: Liraglutide [Victoza 2-Pak] 1.8 MG SQ SCH (08:30)
[2018-11-28] MEDS: MUPIROCIN 2% OINT 22 GM TUBE NASAL SCH (08:32)
[2018-11-28 08:33] LABS: Calcium 9.3 mg/dL (8.4-10.2)
[2018-11-28 08:36] VITALS: BP 135/78; RESP 16; TEMP 96.8
--- NOTE | 2018-11-28 08:47 | P.PN ---
Subjective Progress Note Date: 11/28/18 Principal diagnosis: Symptomatic multivessel coronary artery disease with left main disease, non- STEMI, syncopal episodes. Previous medical history of known coronary artery disease and myocardial infarction with stenting to the right coronary artery, uncontrolled diabetes with hemoglobin A1c 8.1%, hypertension, hyperlipidemia, previous tobacco dependence with FEV1 81% of predicted, peripheral artery disease with previous bilateral lower extremity stent placement, infrarenal aortic stent, and failed attempt at aortofemoral bypass, hypothyroidism, osteoarthritis, obesity, and family history of coronary artery disease. Preoperative urinary tract infection. The patient is currently sitting up in bed in no acute distress. She denies any pain or shortness of breath. She has ambulated without difficulty. She remains in normal sinus rhythm and has had no more episodes of syncope. No new concerns at this time. Objective - Vital Signs Vital signs: Vital Signs Temp 96.8 F L 11/28/18 08:00 Pulse 97 11/28/18 08:00 Resp 16 11/28/18 08:00 BP 135/78 11/28/18 08:00 Pulse Ox 92 L 11/28/18 08:00 Intake & Output 11/27/18 11/28/18 11/28/18 18:59 06:59 18:59 Intake Total 700 50 240 Output Total 850 Balance -150 50 240 Weight 78.8 kg Intake: Intake, IV Titration 50 Amount cefTRIAXone 1 gm In 50 Sodium Chloride 0.9% 50 ml @ 100 mls/hr IVPB HS [facility] Rx#:[id number] Oral 700 240 Output: Urine 850 Other: Voiding Method Toilet Toilet # Voids 2 1 - Constitutional General appearance: Present: cooperative, no acute distress - Respiratory Details: Lungs sounds clear bilaterally. Respirations even, nonlabored. Currently on room air with oxygen saturation 93%. Able to achieve 1500 mL on her incentive spirometry. Strong cough. - Cardiovascular Details: S1, S2 present. Regular rate and rhythm, sinus rhythm on telemetry. Palpable peripheral pulses bilaterally. No edema present. No calf pain or tenderness noted. - Gastrointestinal Gastrointestinal Comment(s): Abdomen soft, nontender, nondistended. Active bowel sounds 4 quadrants. Tolerating diet. - Genitourinary Genitourinary Comment(s): Continues to void clear, yellow urine. - Integumentary Integumentary Comment(s): Skin is warm and dry with evidence of good perfusion. Clean and dry dressing present to left baby toe. - Neurologic Neurologic: Present: CNII-XII intact - Musculoskeletal Musculoskeletal: Present: gait normal, strength equal bilaterally - Psychiatric Psychiatric: Present: A&O x's 3, appropriate affect, intact judgment & insight - Allied health notes Allied health notes reviewed: nursing - Labs CBC & Chem 7: 11/28/18 07:50 11/28/18 07:50 Labs: Abnormal Lab Results - Last 24 Hours (Table) 11/27/18 11/27/18 11/27/18 Range/Units 11:40 16:37 21:13 Glucose (74-99) mg/dL POC Glucose (mg/dL) 172 H 137 H 202 H (75-99) mg/dL 11/28/18 11/28/18 Range/Units 06:21 07:50 Glucose 288 H (74-99) mg/dL POC Glucose (mg/dL) 175 H (75-99) mg/dL Microbiology - Last 24 Hours (Table) 11/25/18 11:20 Nasal Screen MRSA/MSSA - Final Nasal Swab 11/26/18 12:00 Urine Culture - Preliminary Urine,Clean Catch Gram Neg Bacilli Assessment and Plan Assessment: 1. Symptomatic multivessel coronary artery disease with left main disease, non- STEMI 2. Syncopal episodes, no significant carotid artery stenosis 3. History of known coronary artery disease and myocardial infarction with stenting to the right coronary artery 4. Uncontrolled diabetes with current hemoglobin A1c 8.1% 5. Hypertension 6. Hyperlipidemia 7. Previous tobacco dependence with current FEV1 81% of predicted 8. Peripheral artery disease with previous bilateral lower extremity stent placement, infrarenal aortic stent, and failed attempt at aortofemoral bypass 9. Hypothyroidism 10. Obesity 11. Family history of coronary artery disease 12. Osteoarthritis Plan: 1. Continue aspirin, statin/Zetia, MEL inhibitor, beta dante therapy. Plavix discontinued, last dose 11/25/2018. 2. Encourage incentive spirometry 10 times every hour while awake 3. Reinforce preoperative teaching 4. Will complete 5 m walk test today. 5. STS risk score calculated, will discuss with the patient 6. Continue medical management per primary care service. IV Rocephin started for urinary tract infection per Dr. Briceno 7. Our plan is for coronary artery bypass graft surgery towards the end of the week with Dr. Habib. 8. More recommendations to follow. Time with Patient: Greater than 30
--- NOTE | 2018-11-28 10:39 | P.PN ---
Subjective Progress Note Date: 11/28/18 This is a 73-year-old female patient, known diabetic, also known to have coronary artery disease with previous stenting of the RCA in addition to peripheral vascular disease, hypothyroidism and osteoarthritis. The patient was admitted to the hospital because of increased weakness and she also had a episodes of loss of consciousness. Further workup was done including an echocardiogram that showed a normal ejection fraction of 60-65% without any significant valvular abnormalities. The cardiac catheterization showed 50% stenosis of the left main, 60% of the RCA, 80% of the circumflex and 80% to the proximal LAD. Based on this, CT surgery consultation was obtained for cardiac bypass surgery. The patient is feeling of any chest pain. The patient is calm and comfortable. Hemodynamically stable. She has taken a tablet of aspirin and Plavix yesterday. No shortness of breath. She has good performance status. She is able to climb a flight of stairs without any major difficulties. She is a remote ex-smoker. No asthma. No emphysema. No recurrent bouts of pneumonias. No recurrent bouts of bronchitis. No use of any respiratory medications or inhalers. No oxygen therapy. No DVTs. No pulmonary embolism. She has history of claudication and the patient has undergone PT be a and stenting of the right and left common iliac arteries. She is resting comfortably in bed. No other significant events. Computed tomography scan of the chest was reviewed and there is no significant abnormalities noted. The carotid Dopplers showed forced percent stenosis of the both internal carotid arteries. There is bilateral plaque formation. On 11/28/2018 patient seen in follow-up on selective care unit, she is awake and alert, in no acute distress, she has been ambulating in the hallway, and about her room, in no acute distress, denies any chest pain or shortness of breath. No fever or chills, no signs are stable, room air pulse ox is 92%, patient is on empiric antibiotics for gram-negative urinary tract infection, final culture is pending, urine cultures show gram-negative bacilli. Lung sounds reveal a few scattered crackles at the bases, her IS effort [id number] ML today. In sinus rhythm, no further episodes of syncope. Patient is scheduled for upcoming CABG at the end of the week by Dr. Olivares. Bedside PFT was done showed FEV1 of 81% of predicted. Objective - Vital Signs Vital signs: Vital Signs Temp 96.8 F L 11/28/18 08:00 Pulse 97 11/28/18 08:00 Resp 16 11/28/18 08:00 BP 135/78 11/28/18 08:00 Pulse Ox 92 L 11/28/18 08:00 Intake & Output 11/27/18 11/28/18 11/28/18 18:59 06:59 18:59 Intake Total 700 50 240 Output Total 850 Balance -150 50 240 Weight 78.8 kg Intake: Intake, IV Titration 50 Amount cefTRIAXone 1 gm In 50 Sodium Chloride 0.9% 50 ml @ 100 mls/hr IVPB HS [facility] Rx#:[id number] Oral 700 240 Output: Urine 850 Other: Voiding Method Toilet Toilet Toilet # Voids 2 1 - Exam GENERAL EXAM: Alert, pleasant 73-year-old white female, comfortable in no apparent distress. HEAD: Normocephalic/atraumatic. There is a fading bruise on her right for head EYES: Normal reaction of pupils, equal size. Conjunctiva pink, sclera white. NOSE: Clear with pink turbinates. MOUTH: Patient has a large bruise on the left side of her tongue THROAT: No erythema or exudates. NECK: No masses, no JVD, no thyroid enlargement, no adenopathy. CHEST: No chest wall deformity. Symmetrical expansion. LUNGS: Equal air entry with a few scattered rales at the bases CVS: Regular rate and rhythm, normal S1 and S2, no gallops, no murmurs, no rubs ABDOMEN: Soft, nontender. No hepatosplenomegaly, normal bowel sounds, no guarding or rigidity. EXTREMITIES: No clubbing, no edema, no cyanosis, 2+ pulses and upper and lower extremities. MUSCULOSKELETAL: Muscle strength and tone normal. SPINE: No scoliosis or deformity SKIN: No rashes CENTRAL NERVOUS SYSTEM: Alert and oriented -3. No focal deficits, tone is normal in all 4 extremities. PSYCHIATRIC: Alert and oriented -3. Appropriate affect. Intact judgment and insight. - Labs CBC & Chem 7: 11/28/18 07:50 11/28/18 07:50 Labs: Abnormal Lab Results - Last 24 Hours (Table) 11/27/18 11/27/18 11/27/18 Range/Units 11:40 16:37 21:13 Glucose (74-99) mg/dL POC Glucose (mg/dL) 172 H 137 H 202 H (75-99) mg/dL 11/28/18 11/28/18 Range/Units 06:21 07:50 Glucose 288 H (74-99) mg/dL POC Glucose (mg/dL) 175 H (75-99) mg/dL Microbiology - Last 24 Hours (Table) 11/25/18 11:20 Nasal Screen MRSA/MSSA - Final Nasal Swab 11/26/18 12:00 Urine Culture - Preliminary Urine,Clean Catch Gram Neg Bacilli Assessment and Plan Plan: Assessment: 1 symptomatic multivessel coronary artery disease, awaiting cardiac bypass surgery. The patient is post syncope. The patient is post non-STEMI. 2 peripheral vascular disease with history of claudication and the patient has undergone previous PTBA and stenting of the iliacs bilaterally 3 diabetes mellitus 4 bilateral carotid stenosis, 40% of the internal carotids, not hemodynamically significant 5 hyperlipidemia 6 hypothyroidism 7 hypertension 8 previous history of coronary stenting of the RCA and previous history of non-Q -wave [place] 9 glucoma 10 bilateral cataracts 11 mild COPD, preop FEV1 showed 81% of predicted, currently stable Plan: Continue current medical treatment, no acute events overnight, no couplets of chest pain or shortness of breath. COPD stable. No further episodes of syncope. She is tolerating ambulation, she is on room air, awaiting final culture of the urine. Preliminary cultures showed gram-negative bacilli, patient is covered with the ceftriaxone. No fever or chills. Anticipate surgery at then the week, possibly on Wednesday by Dr. Olivares. We'll continue to follow I performed a history & physical examination of the patient and discussed their management with my nurse practitioner, Aleta Selby. I reviewed the nurse practitioner's note and agree with the documented findings and plan of care. Lung sounds are positive for a few scattered crackles. The findings and the impression was discussed with the patient. I attest to the documentation by the nurse practitioner. Time with Patient: Less than 30
[2018-11-28 11:42] LABS: Glucose,Whole Blood 170 mg/dL (75-99)
[2018-11-28 12:22] VITALS: PULSE 107
--- NOTE | 2018-11-28 15:32 | P.PN ---
Subjective Progress Note Date: 11/28/18 This is a pleasant 73-year-old female who follows with Dr. VC Flores in the office. She has a known history of diabetes, hypertension, hyperlipidemia, prior coronary artery disease, peripheral arterial disease, presented to the hospital following a syncopal episode. She did undergo cardiac catheterization at a year ago which revealed 60-70% lesion in the second obtuse marginal branch , she has a known stent in the right coronary artery. Patient was noted to have abnormality in her troponin and was advised to undergo cardiac catheterization. This was performed yesterday by Dr. Arreguin and revealed calcified right and left coronary systems, severe triple-vessel coronary artery disease and severe disease involving the left main coronary artery as well. Cardiothoracic surgery has been consulted for bypass surgery. She was seen and examined this morning, denies any chest pain, no dizziness or lightheadedness. Blood pressure 140/60 with a heart rate in the 70s. White blood cell count is 4.2, hemoglobin 10.9, platelet count 205. Sodium 136, potassium 3.7, BUN 11 and creatinine 0.8. Echocardiogram with Doppler study was performed which revealed a normal left ventricular systolic function. 11/28/2018 Patient seen and examined this morning, she's been up ambulating in the hallway most of the day. Hemodynamically stable, denies any chest pain in her breathing is been stable. She is scheduled to undergo coronary artery bypass grafting surgery on Wednesday Objective - Vital Signs Vital signs: Vital Signs Temp 96.8 F L 11/28/18 08:00 Pulse 107 H 11/28/18 12:00 Resp 16 11/28/18 12:00 BP 135/78 11/28/18 08:00 Pulse Ox 94 L 11/28/18 12:00 Intake & Output 11/27/18 11/28/18 11/28/18 18:59 06:59 18:59 Intake Total 700 50 240 Output Total 850 Balance -150 50 240 Weight 78.8 kg Intake: Intake, IV Titration 50 Amount cefTRIAXone 1 gm In 50 Sodium Chloride 0.9% 50 ml @ 100 mls/hr IVPB HS [facility] Rx#:[id number] Oral 700 240 Output: Urine 850 Other: Voiding Method Toilet Toilet Toilet # Voids 2 1 2 - Exam PHYSICAL EXAMINATION: GENERAL: 73-year-old female in no acute distress at the time of my examination HEENT: Head is atraumatic, normocephalic. Pupils equal, round. Sclera anicteric. Conjunctiva are clear. Mucous membranes of the mouth are moist. Neck is supple. There is no elevated jugular venous pressure. No carotid bruit is heard. HEART EXAMINATION: Heart S1, S2 normal. No murmur or gallop heard. CHEST EXAMINATION: Lungs are clear to auscultation and precussion. No chest wall tenderness is noted on palpation or with deep breathing. ABDOMEN: Soft, nontender. Bowel sounds are heard. No organomegaly noted. EXTREMITIES: 1+ peripheral pulses with no evidence of peripheral edema and no calf tenderness noted. Right radial site clean and dry, good distal pulse. Mild ecchymosis noted. NEUROLOGIC patient is awake, alert and oriented 3 . . - Labs CBC & Chem 7: 11/28/18 07:50 11/28/18 07:50 Labs: Abnormal Lab Results - Last 24 Hours (Table) 11/27/18 11/27/18 11/28/18 Range/Units 16:37 21:13 06:21 Glucose (74-99) mg/dL POC Glucose (mg/dL) 137 H 202 H 175 H (75-99) mg/dL 11/28/18 11/28/18 Range/Units 07:50 11:37 Glucose 288 H (74-99) mg/dL POC Glucose (mg/dL) 170 H (75-99) mg/dL Microbiology - Last 24 Hours (Table) 11/25/18 11:20 Nasal Screen MRSA/MSSA - Final Nasal Swab 11/26/18 12:00 Urine Culture - Preliminary Urine,Clean Catch Gram Neg Bacilli Assessment and Plan Plan: Assessment and plan #1 syncope with abnormality noted in troponin, non-Q-wave myocardial infarction , status post cardiac catheterization which revealed multivessel coronary artery disease, surgical consultation has been requested. #2 known history of coronary artery disease with prior RCA stenting #3 hypertension #4 hyperlipidemia #5 peripheral vascular disease with history of infrarenal aortic stent and stenting of the right common iliac artery #6 prior history of smoking Plan From cardiology's perspective, patient may be able to be discharged home today. She will return to the hospital on Wednesday for coronary artery bypass grafting surgery. DNP note has been reviewed, I agree with a documented findings and plan of care. Patient was seen and examined.
--- NOTE | 2018-11-29 05:46 | DS ---
DISCHARGE SUMMARY DATE OF ADMISSION: 11/24/2018 DATE OF DISCHARGE: 11/28/2018 FINAL DIAGNOSES: 1. Acute non-Q-wave myocardial infarction. 2. Severe triple-vessel coronary artery disease pending coronary bypass. 3. Diabetes mellitus type 2 on oral hypoglycemic. 4. Essential hypertension. 5. Hyperlipidemia. 6. Primary osteoarthritis. 7. Hypothyroid. 8. Peripheral arterial disease. 9. Acute urinary tract infection from cystitis. HOSPITAL COURSE: This patient presented with recurrent syncope felt to be from acute non-Q-wave ME. Cardiac catheterization revealed severe triple-vessel disease. Today Cardiology and Cardiothoracic both have cleared the patient to go home. Patient to come back this Wednesday for surgery. The patient was told to keep her activity at the minimal. I did speak to from Cardiothoracic. No chest pain. Patient has been up to the bathroom. Discussed with the patient and . Questions were answered. Discussion and discharge planning more than 35 minutes. On examination, temperature 96.8, pulse 97, respirations 16, blood pressure 135/78, pulse ox 92% on room air. LUNGS: Slightly decreased breath sounds. CARDIOVASCULAR: First and second sounds normal. INVESTIGATIONS: White count 5.6, hemoglobin 12.2. CONSULTATIONS: Dr. Olivares from Cardiothoracic surgery; Dr. Elise from Pulmonary; Dr. Jeffries from interventional cardiology; Dr. David Flores from Cardiology. DISCHARGE MEDICATIONS: 1. Aspirin 81 mg a day. 2. Vitamin D2, 00223 units, every 15 days. 3. Zetia 10 mg a day. 4. Synthroid 125 mcg with breakfast. 5. Victoza 1.8 mg subcu before breakfast. 6. Lisinopril 40 mg a day. 7. Toprol-XL 100 mg a day. 8. Nitrostat 0.4 sublingual q.5 p.r.n. 9. Glucophage 500 mg p.o. b.i.d. 10.Lipitor 80 mg p.o. daily. 11.Amaryl 6 mg before breakfast. 12.Imdur ER 15 mg p.o. daily. 13.Bactroban 2% topical b.i.d. Follow up with cardiothoracic per their orders. The patient has been told to hold lisinopril 2 days prior to surgery on Wednesday. They will schedule the patient for surgery this coming Wednesday. The patient's Plavix has been held. MMODL / IJN: [id number] /
--- NOTE | 2018-11-30 07:44 | CDI ---
Documentation Clarification Form Date: 11/30/18 From: Nae Dung Christen Ho, Glass Vial Bending Conveyor Feeder Hours-8:30 am & 5 pm MDoron Admit Date: 11/24/2018 12:17:00 PM Patient Name: Sangeeta Vinson Visit Number: [id number] Discharge Date: 11/28/2018 4:20:00 PM ATTENTION: The Clinical Documentation Specialists (CDI) and [facility] Coding Staff appreciate your assistance in clarifying documentation. Please respond to the clarification below the line at the bottom and electronically sign. The CDI & [facility] Coding staff will review the response and follow-up if needed. Please note: Queries are made part of the Legal Health Record. If you have any questions, please contact the author of this message via ITS. Dr. Daryl Briceno The patient has diabetes Type II uncontrolled, as indicated in progress notes 11/26, 11/27 & 11/28. POC glucose: 216, 211, 219, 275, 299, 209, 217, 129, 163, 141, 172, 137, 202, 175, 170 Glucose: 214, 201, 136, 288 A1c: 8.1 Treatment:BS monitoring, Amaryl 6 mg po AC, Metformin HCL 500 mg po BID, Victoza 1.8 mg SQ PC Per [facility]oding [facility] 2016 - query the provider for clarification whether the patient has hyperglycemia or hypoglycemia so that the appropriate code may be reported - uncontrolled diabetes indicates that the patient's blood sugar is not at an acceptable level, because it is either too high or too low. In order to capture the severity of Illness and necessary documentation specificity, please clarify if Type 2 uncontrolled diabetes is: Hyperglycemia Hypoglycemia Other, please specify Unable to Determine Please continue to document in your progress notes and discharge summary in order to capture severity of illness and risk of mortality. Include clinical findings that support your diagnosis. DM type 2 uncontrolled with hyperglycemia MTDD
--- NOTE | 2018-11-30 09:26 | P.VSCSTY ---
Greater Saphenous Vein Mapping This is bilateral lower extremity greater saphenous vein mapping. Date of service 11/25/2018 Vein quality and ultrasound appearance no intraluminal thrombus or wall changes are seen. Vein size groin right 5 x 5.9 groin left 6.5 x 5.5 High thigh right 4.2 x 4.9 high thigh left 4.0 x 3.7 Mid thigh right 3.3 x 2.8 mid thigh left 3.4 x 3.3 Above-knee right 3.9 x 4.1 above- knee left 4.1 x 2.6 Below knee right 2.8 x 3.1 below-knee left 3.2 x 2.6 Mid calf right 2.3 x 2.7 mid calf left 2.5 x 2.2 Ankle right 2.4 x 2.3 ankle left to 0.8 x 2.1 Impression usable bilateral greater saphenous vein.
--- NOTE | 2018-11-30 09:27 | P.ARTDOP ---
Arterial Doppler Bilateral radial artery testing. Date of study: 11/25/2018 Reason for study: Preop CABG Findings: Duplex imaging showed each radial artery to be beneath 2 mm in diameter in most areas. Given the small size further studies were not done.
--- NOTE | 2018-11-30 09:29 | P.ARTDOP ---
Arterial Doppler LOWER EXTREMITY ARTERIAL DOPPLER: DATE OF SERVICE: 11/25/2018 Reason for study: Preop CABG. Doppler waveforms: Multiphasic bilaterally throughout. Pulse volume recording: []. Pressure gradients: None noted. Ankle-brachial indices: Greater than 1 on the right and 0.97 on the left. Toe pressures: [] on the right, [] on the left Impression: Adequate circulation in both lower extremities. Near-normal bilaterally.
== END 2018-11-28 16:20 | disposition home or self-care (01) | DRG 282 ==
LOC: EC 11:23 → 3SCARD 12:17
PROVIDERS: ADMIT Hospitalist; ATTEND Hospitalist
PROC: B2111ZZ Fluoroscopy of Multiple Coronary Arteries using Low Osmolar Contrast (ICD-10-PCS; 2018-11-25)
PROC: B44HZZZ Ultrasonography of Bilateral Lower Extremity Arteries (ICD-10-PCS; 2018-11-25)
PROC: B34KZZZ Ultrasonography of Bilateral Upper Extremity Arteries (ICD-10-PCS; 2018-11-25)
PROC: 4A023N7 Measurement of Cardiac Sampling and Pressure, Left Heart, Percutaneous Approach (ICD-10-PCS; principal; 2018-11-25 13:43)
DX: I21.4 Non-ST elevation (NSTEMI) myocardial infarction (principal); I95.89 Other hypotension; E11.51 Type 2 diabetes mellitus with diabetic peripheral angiopathy without gangrene; J44.9 Chronic obstructive pulmonary disease, unspecified; E11.36 Type 2 diabetes mellitus with diabetic cataract; E11.39 Type 2 diabetes mellitus with other diabetic ophthalmic complication; I65.23 Occlusion and stenosis of bilateral carotid arteries; N30.90 Cystitis, unspecified without hematuria; I25.10 Atherosclerotic heart disease of native coronary artery without angina pectoris; H40.9 Unspecified glaucoma; H42 Glaucoma in diseases classified elsewhere; I10 Essential (primary) hypertension; E78.5 Hyperlipidemia, unspecified; M19.91 Primary osteoarthritis, unspecified site; E03.9 Hypothyroidism, unspecified; I25.2 Old myocardial infarction; F17.211 Nicotine dependence, cigarettes, in remission; E66.9 Obesity, unspecified; Z68.31 Body mass index [BMI] 31.0-31.9, adult; Z79.82 Long term (current) use of aspirin; Z79.02 Long term (current) use of antithrombotics/antiplatelets; Z79.84 Long term (current) use of oral hypoglycemic drugs; Z79.890 Hormone replacement therapy; Z79.899 Other long term (current) drug therapy; Z95.5 Presence of coronary angioplasty implant and graft; Z95.828 Presence of other vascular implants and grafts; Z98.51 Tubal ligation status; Z88.5 Allergy status to narcotic agent; Z81.8 Family history of other mental and behavioral disorders; Z82.49 Family history of ischemic heart disease and other diseases of the circulatory system; W18.2XXA Fall in (into) shower or empty bathtub, initial encounter; Y92.002 Bathroom of unspecified non-institutional (private) residence as the place of occurrence of the external cause; E11.65 Type 2 diabetes mellitus with hyperglycemia
CPT/HCPCS: 71046; 71275; 80048; 80053; 80061; 80074; 81001; 82550; 82553; 83036; 83735; 84439; 84443; 84484; 85025; 85379; 85610; 85730; 86850; 86900; 86901; 86920; 87070; 87077; 87086; 87186; 93306; 93458; 93880; 93922; 93923; 93930; 93970; 94150; 94760; 96374; 99285

== ENCOUNTER 2018-12-02 05:33 | Inpatient (IN) | payer MEDICARE ==
[~2018-12-02 05:33] MED LIST: ALBUMIN HUMAN 25% 50 ML IV ONE; ALBUMIN HUMAN 5% 500 ML IVPB ONE; ASPIRIN 325 MG TAB PO ONE; ATORVASTATIN 10 MG TAB PO ONE; CALCIUM CHLORIDE 100 MG/ML 10 ML SYRINGE IV ONE; CHLORHEXIDINE GLUCONATE 15 ML CUP MUCOUS MEM ONE; CLEVIDIPINE BUTYRATE 25 MG in EMPTY BAG 1 BAG IV ONE; DEXTROSE 5% IN WATER 1,000 ML with POTASSIUM CHLORIDE 110 MEQ, MAGNESIUM SULFATE 16 MEQ... IV ONE; DEXTROSE 5% IN WATER 1,000 ML with POTASSIUM CHLORIDE 25 MEQ, SODIUM CHLORIDE 2.5MEQ/ML... IRRIGATION ONE; HEPARIN SODIUM 1,000 UN/ML (10ML VL) IV ONE; HEPARIN SODIUM,PORCINE 5,000 UNIT in SODIUM CHLORIDE 0.9% 500 ML 500 ML IV ONE; INSULIN REGULAR 100 UNIT in SODIUM CHLORIDE 0.9% 100 ML IV ONE; LACTATED RINGERS 1,000 ML IV ONE; MAGNESIUM SULFATE MG 500 MG/ML IV ONE; MANNITOL 25% 12.5 GM/50 ML VIAL IV ONE; METOPROLOL TARTRATE 12.5 MG TAB PO ONE; NITROGLYCERIN SL TABS 0.4 MG TAB SUBLINGUAL ONE; NITROGLYCERIN-D5W PMX 25 MG/250 ML BTL IV ONE; NITROGLYCERIN-D5W PMX 50 MG in DEXTROSE/WATER 1 250ML.BAG IV ONE; NOREPINEPHRINE 4 MG in SODIUM CHLORIDE 0.9% 250 ML IV ONE; PAPAVERINE 360 MG in SODIUM CHLORIDE 0.9% 90 ML IV ONE; PHENYLEPHRINE 10 MG/ML VIAL IV ONE; PHENYLEPHRINE 40 MG in SODIUM CHLORIDE 0.9% 250 ML IV ONE; PROPOFOL 1,000 MG/100 ML VIAL IV ONE; PROTAMINE SULFATE 10 MG/ML 25 ML VIAL IV ONE; PROTAMINE SULFATE 250 MG in EMPTY BAG 1 BAG IV ONE; SODIUM BICARB 8.4% 50 ML SYR (1 MEQ/ML) IV ONE; SODIUM CHLORIDE 0.9% 1,000 ML IV ONE; TRANEXAMIC ACID 2,000 MG in SODIUM CHLORIDE 0.9% 80 ML IV ONE; ceFAZolin 1,000 MG in SODIUM CHLORIDE 0.9% IRRIGATIO 1,000 ML IRRIGATION ONE; ceFAZolin 2,000 MG in SODIUM CHLORIDE 0.9% 30 ML IVPB ONE
[2018-12-02] MEDS ORDERED: LACTATED RINGERS 1,000 ML IV SCH (05:43)
[2018-12-02] MEDS ORDERED: MIDAZOLAM 2 MG/2 ML VIAL IV PRN (05:43)
[2018-12-02 06:19] LABS: Glucose,Whole Blood 148 mg/dL (75-99)
[2018-12-02] MEDS ORDERED: fentaNYL (PF) 50 MCG/ML 2 ML AMP ONE (07:45)
[2018-12-02] MEDS ORDERED: SODIUM CHLORIDE 0.9% IRRIG 1,000 ML BTL IRRIGATION ONE (07:45)
[2018-12-02] MEDS ORDERED: TRANEXAMIC ACID 1,000 MG/10 ML VIAL ONE (07:45)
[2018-12-02] MEDS ORDERED: PROTAMINE SULFATE 10 MG/ML 25 ML VIAL IV ONE (07:45)
[2018-12-02] MEDS ORDERED: LIDOCAINE 2% SYG (PF) 100 MG/5 ML ONE (07:45)
[2018-12-02] MEDS ORDERED: MIDAZOLAM 2 MG/2 ML VIAL ONE (07:45)
[2018-12-02] MEDS ORDERED: CALCIUM CHLORIDE 100 MG/ML 10 ML SYRINGE ONE (07:45)
[2018-12-02] MEDS ORDERED: MAGNESIUM SULFATE 4 MEQ/ML 10ML VIAL ONE (07:45)
[2018-12-02] MEDS ORDERED: SUCCINYLCHOLINE CHLORIDE 100 MG/5 ML SYR IV ONE (07:45)
[2018-12-02] MEDS ORDERED: ALBUMIN HUMAN 5% (12.5gm) 250 ML BOTTLE IVPB ONE (07:45)
[2018-12-02] MEDS ORDERED: fentaNYL (PF) 50 MCG/ML 50 ML VIAL ONE (07:45)
[2018-12-02] MEDS ORDERED: SODIUM CHLORIDE 0.9% 250 ML BAG ONE (07:45)
[2018-12-02] MEDS ORDERED: PHENYLEPHRINE-0.9% NACL SYG 1 MG/10 ML SYRINGE ONE (07:45)
[2018-12-02] MEDS ORDERED: PROPOFOL 10 MG/ML 20 ML VIAL IV ONE (07:45)
[2018-12-02] MEDS ORDERED: VECURONIUM 10 MG VIAL IV ONE (07:45)
[2018-12-02] MEDS ORDERED: ELECTROLYTE-R (PH 7.4) 1,000 ML IV.SOLN IV ONE (07:45)
[2018-12-02] MEDS ORDERED: HEPARIN SODIUM,PORCINE 10,000 UNIT/ML 1 ML VIAL ONE (07:45)
[2018-12-02 08:42] LABS: ABG Base Excess 0.2 mmol/L; ABG HCO3 25 mmol/L (21-25); ABG Oxygen Saturation 99.7 % (94-97); ABG PCO2 38 mmHg (35-45); ABG PH 7.42 (7.35-7.45); ABG PO2 133 mmHg (83-108); ABG Potassium Whole Blood 4.4 mmol/L (3.4-4.5); ABG Sodium Whole Blood 138 mmol/L (135-146); ABG TCO2 26 mmol/L (19-24)
[2018-12-02 08:44] LABS: ABG Base Excess 1.3 mmol/L; ABG HCO3 25 mmol/L (21-25); ABG Oxygen Saturation 98.6 % (94-97); ABG PCO2 36 mmHg (35-45); ABG PH 7.45 (7.35-7.45); ABG PO2 104 mmHg (83-108); ABG Potassium Whole Blood 4.1 mmol/L (3.4-4.5); ABG Sodium Whole Blood 138 mmol/L (135-146); ABG TCO2 26 mmol/L (19-24)
[2018-12-02] MEDS ORDERED: TRANEXAMIC ACID 2,000 MG in SODIUM CHLORIDE 0.9% 80 ML IV ONE (08:45)
[2018-12-02 09:34] LABS: ABG Base Excess 1.4 mmol/L; ABG HCO3 25 mmol/L (21-25); ABG Oxygen Saturation 99.1 % (94-97); ABG PCO2 36 mmHg (35-45); ABG PH 7.46 (7.35-7.45); ABG PO2 119 mmHg (83-108); ABG Potassium Whole Blood 4.1 mmol/L (3.4-4.5); ABG Sodium Whole Blood 137 mmol/L (135-146); ABG TCO2 26 mmol/L (19-24)
[2018-12-02 10:53] LABS: ABG Base Excess 1.2 mmol/L; ABG HCO3 24 mmol/L (21-25); ABG PCO2 29 mmHg (35-45); ABG PH 7.52 (7.35-7.45); ABG Sodium Whole Blood 129 mmol/L (135-146); ABG TCO2 25 mmol/L (19-24)
[2018-12-02 11:22] LABS: ABG Base Excess -0.3 mmol/L; ABG HCO3 24 mmol/L (21-25); ABG PCO2 38 mmHg (35-45); ABG PH 7.42 (7.35-7.45); ABG Potassium Whole Blood 4.7 mmol/L (3.4-4.5); ABG Sodium Whole Blood 133 mmol/L (135-146); ABG TCO2 25 mmol/L (19-24)
[2018-12-02 12:11] LABS: ABG HCO3 24 mmol/L (21-25); ABG PCO2 36 mmHg (35-45); ABG PH 7.44 (7.35-7.45); ABG Potassium Whole Blood 4.1 mmol/L (3.4-4.5); ABG Sodium Whole Blood 134 mmol/L (135-146); ABG TCO2 25 mmol/L (19-24)
[2018-12-02 13:32] LABS: ABG Base Excess -1.6 mmol/L; ABG HCO3 24 mmol/L (21-25); ABG Oxygen Saturation 67.2 % (94-97); ABG PCO2 46 mmHg (35-45); ABG PH 7.33 (7.35-7.45); ABG Potassium Whole Blood 3.6 mmol/L (3.4-4.5); ABG Sodium Whole Blood 136 mmol/L (135-146); ABG TCO2 26 mmol/L (19-24)
[2018-12-02] MEDS ORDERED: PROPOFOL 1,000 MG in EMPTY BAG 1 BAG IV SCH (14:03)
[2018-12-02] MEDS ORDERED: Magnesium Replacement Protocol 1 EACH MISC MISCELLANE PRN (14:03)
[2018-12-02] MEDS ORDERED: Phosphorus Replacement Protoco 1 EACH MISC MISCELLANE PRN (14:03)
[2018-12-02] MEDS ORDERED: Potassium Replacement Protocol 1 EACH MISC MISCELLANE PRN (14:03)
[2018-12-02] MEDS ORDERED: IPRATROPIUM-ALBUTEROL 3 ML NEB INHALATION PRN (14:03)
[2018-12-02] MEDS ORDERED: AMIODARONE 300 MG in DEXTROSE 5% IN WATER 250 ML IV PRN ×2 (14:03)
[2018-12-02] MEDS ORDERED: CALCIUM CHLORIDE 1,000 MG in SODIUM CHLORIDE 0.9% 100 ML IV PRN (14:03)
[2018-12-02] MEDS ORDERED: DEXTROSE 5% IN WATER 100 ML with AMIODARONE 150 MG IV PRN (14:03)
[2018-12-02] MEDS ORDERED: METOCLOPRAMIDE 5 MG/ML 2 ML VIAL IVP PRN (14:03)
[2018-12-02] MEDS ORDERED: AMIODARONE 360 MG in DEXTROSE 5% IN WATER 200 ML IV PRN ×2 (14:03)
[2018-12-02 14:04] LABS: ABG PO2 >420 mmHg (83-108)
[2018-12-02 14:22] LABS: ABG PO2 >420 mmHg (83-108)
[2018-12-02 14:24] LABS: ABG PO2 >420 mmHg (83-108)
[2018-12-02 14:28] LABS: ABG PO2 38 mmHg (83-108)
[2018-12-02] MEDS ORDERED: NITROGLYCERIN-D5W PMX 50 MG in DEXTROSE/WATER 1 250ML.BAG IV SCH (14:45)
[2018-12-02] MEDS: LACTATED RINGERS 1,000 ML IV SCH (14:49)
[2018-12-02] MEDS: INSULIN REGULAR 100 UNIT in SODIUM CHLORIDE 0.9% 100 ML IV SCH (14:50)
[2018-12-02 14:51] LABS: Glucose,Whole Blood 121 mg/dL (75-99)
[2018-12-02] MEDS: CLEVIDIPINE BUTYRATE 25 MG in EMPTY BAG 1 BAG IV SCH ×2 (14:51→17:06)
[2018-12-02] MEDS: ALBUMIN HUMAN 5% 250 ML in EMPTY BAG 1 BAG IVPB PRN ×3 (15:01→22:58)
[2018-12-02 15:04] LABS: Ionized Calcium 5.1 mg/dL (4.5-5.3)
--- NOTE | 2018-12-02 15:05 | P.CRDCN ---
History of Present Illness Consult date: 12/02/18 History of present illness: This is a 73-year-old female with history of ischemic heart disease who was recently admitted to the hospital with a syncopal episode. Patient cardiac enzymes were size to of non-ST elevation myocardial infarction. Patient also has severe peripheral vascular disease. Patient had a cardiac catheterization by Dr. Arreguin. She was found to have heavily calcified coronary system with triple-vessel disease. There is about 60-70% stenosis of the mid LAD. The left main coronary artery showed about 50% plaque. The circumflex coronary artery is about 80% stenosis in the proximal portion. OM branch has about 80% ostial stenosis. The LAD had about 70-80% lesion in the proximal portion. The mid LAD also had about 70% to 80% lesion. Patient today underwent prior to coronary bypass surgery and just transferred to intensive care unit. Patient is still intubated. Vital signs are stable. Maintaining sinus rhythm at this time. Review of Systems Not obtained Past Medical History Past Medical History: Coronary Artery Disease (CAD), Chest Pain / Angina, Diabetes Mellitus, Eye Disorder, Hyperlipidemia, Hypertension, Myocardial Infarction (LA), Myocardial Infarction (non Q-wave), Osteoarthritis (OA), Thyroid Disorder, Vascular Disorder Additional Past Medical History / Comment(s): 2000 HX ASHD, peripheral arterial disease, intermittent claudication involving infra renal aorta and rt and lt common iliac arteries (had stents palced), bilat cataracts, glaucoma L eye with stent. Last Myocardial Infarction Date:: History of Any Multi-Drug Resistant Organisms: None Reported Past Surgical History: Adenoidectomy, Heart Catheterization, Heart Catheterization With Stent, Tonsillectomy, Tubal Ligation Additional Past Surgical History / Comment(s): EXP. LAP 02/2012, STENT TO HEART X1, INFRARENAL AORTA STENT, STENTS TO RIGHT AND LEFT COMMONI ILLIAC ARTERIES. AORTOGRAM WITH RUNOFF 02/02/14 @ [facility] Past Anesthesia/Blood Transfusion Reactions: No Reported Reaction Additional Past Anesthesia/Blood Transfusion Reaction / Comment(s): pt states she has never had a blood transfusion Date of Last Stent Placement:: 2000 Smoking Status: Former smoker - Past Family History Mother Family Medical History: Dementia Additional Family Medical History / Comment(s): HEART PROBLEMS Father Family Medical History: Coronary Artery Disease (CAD), Myocardial Infarction (LA) Additional Family Medical History / Comment(s): Her father at age 79 with a myocardial infarction. Medications and Allergies Home Medications Medication Instructions Recorded Confirmed Type Aspirin 81 mg PO DAILY 01/31/14 12/02/18 History Ergocalciferol [Vitamin D2 50,000 units PO Q14D 01/31/14 12/02/18 History (DRISDOL)] Ezetimibe [Zetia] 10 mg PO DAILY 01/31/14 12/02/18 History Levothyroxine Sodium [Synthroid] 125 mcg PO -KFST 01/31/14 12/02/18 History Liraglutide [Victoza 2-Luiz] 1.8 mg SQ -KT 01/31/14 12/02/18 History Lisinopril 40 mg PO DAILY 01/31/14 12/02/18 History Metoprolol Succinate [Toprol XL] 100 mg PO DAILY 01/31/14 12/02/18 History Nitroglycerin Sl Tabs [Nitrostat] 0.4 mg SUBLINGUAL Q5M PRN #25 tab 03/16/18 12/02/18 Rx metFORMIN HCL [Glucophage] 500 mg PO BID #0 03/16/18 12/02/18 Rx Atorvastatin [Lipitor] 80 mg PO DAILY 11/24/18 12/02/18 History Glimepiride [Amaryl] 6 mg PO -[facility] 11/24/18 12/02/18 History Isosorbide Mononitrate ER [Imdur] 15 mg PO DAILY 11/24/18 12/02/18 History Mupirocin 2% Oint [Bactroban 2% 1 applic NASAL BID #1 applic 11/28/18 12/02/18 Rx Oint] Clopidogrel [Plavix] 75 mg PO DAILY 12/02/18 12/02/18 History Allergies Allergy/AdvReac Type Severity Reaction Status Date / Time hydromorphone HCl Allergy RESPIRATORY Verified 12/02/18 14:31 [From Dilaudid] DEPRESSION Physical Exam Vitals: Vital Signs Temp Pulse Resp BP BP Pulse Ox 12/02/18 06:03 97.0 F L 86 16 159/65 154/68 97 Intake and Output 12/02/18 12/02/18 12/02/18 06:59 14:59 22:59 Intake Total 50 32 Output Total 1600 Balance 50 -1568 Intake: IV 50 32 Output: Urine 800 Estimated Blood Loss 800 Other: Weight 79.2 kg GENERAL EXAM: Patient is intubated and sedated HEENT: Normocephalic. Normal reaction of pupils, equal size, normal range of e xtraocular motion. No erythema or exudates in the throat. NECK: No masses, no nuchal rigidity. CHEST: No chest wall deformity. LUNGS: Diminished breath sounds at bases HEART: [S1 and S2 normal ABDOMEN: No hepatosplenomegaly, normal bowel sounds, no guarding or rigidity. SKIN: No rashes CENTRAL NERVOUS SYSTEM: Deferred EXTREMITIES: No cyanosis, clubbing or edema. Results Current Medications Generic Name Dose Route Start Last Admin Trade Name Freq PRN Reason Stop Dose Admin Hydrocodone Bitart/Acetaminophen 1 each 12/03/18 13:17 Delta 5-325 PO Q4HR PRN Moderate Pain Hydrocodone Bitart/Acetaminophen 2 each 12/03/18 13:17 Delta 5-325 PO Q4HR PRN Severe Pain Albuterol/Ipratropium 3 ml 12/02/18 14:03 Duoneb 0.5 Mg-3 Mg/3 Ml Soln INHALATION RT-Q2H PRN Shortness Of Breath Or Wheezing Albuterol/Ipratropium 3 ml 12/02/18 16:00 Duoneb 0.5 Mg-3 Mg/3 Ml Soln INHALATION 12/02/18 19:19 RT-Q4H ANGELICA Albuterol/Ipratropium 3 ml 12/02/18 20:00 Duoneb 0.5 Mg-3 Mg/3 Ml Soln INHALATION RT-QID COUNTS INCLUDE 234 BEDS AT THE [facility] Aspirin 325 mg 12/03/18 09:00 Aspirin PO DAILY COUNTS INCLUDE 234 BEDS AT THE [facility] Atorvastatin Calcium 40 mg 12/03/18 09:00 Lipitor PO DAILY COUNTS INCLUDE 234 BEDS AT THE [facility] Benzocaine/Menthol 1 each 12/02/18 14:03 Cepacol Lozenge MUCOUS MEM Q2H PRN Sore Throat Bisacodyl 10 mg 12/03/18 13:18 Dulcolax RECTAL DAILY PRN Constipation Cefazolin Sodium 2 gm 12/02/18 16:00 Kefzol IVP 12/03/18 08:01 Q8HR COUNTS INCLUDE 234 BEDS AT THE [facility] Clopidogrel Bisulfate 75 mg 12/03/18 09:00 Plavix PO DAILY COUNTS INCLUDE 234 BEDS AT THE [facility] Heparin Sodium (Porcine) 5,000 unit 12/02/18 21:19 Heparin SQ Q8HR ANGELICA Acetaminophen 1,000 mg/ IV 100 mls @ 400 mls/hr 12/02/18 18:00 Solution IVPB 12/03/18 18:01 Q6HR ANGELICA Albumin Human 250 ml/ IV 250 mls @ 250 mls/hr 12/02/18 14:03 Solution IVPB 12/04/18 14:04 Q1HR PRN For Volume Amiodarone HCl 150 mg/ 103 mls @ 618 mls/hr 12/02/18 14:03 Dextrose/Water IV .Q10M PRN A.FIB/FLUTTER Protocol Nitroglycerin/Dextrose 50 mg/ 250 mls @ 1.5 mls/hr 12/02/18 14:45 12/02/18 14:50 IV Solution IV 5 mcg/min .Q24H ANGELICA 1.5 mls/hr Administration 5 MCG/MIN Lactated Ringer's 1,000 mls @ 50 mls/hr 12/02/18 14:03 12/02/18 14:49 Lactated Ringers IV 50 mls/hr .Q20H ANGELICA Administration Propofol 1,000 mg/ IV Solution 100 mls @ 0 mls/hr 12/02/18 14:03 IV .Q0M ANGELICA Protocol Titrate Amiodarone HCl 360 mg/ 200 mls @ 33.333 mls/hr 12/02/18 14:03 Dextrose/Water IV .Q6H PRN A.FIB/FLUTTER Protocol 1 MG/MIN Calcium Chloride 1,000 mg/ 110 mls @ 100 mls/hr 12/02/18 14:03 Sodium Chloride IV 12/06/18 23:59 ONCE PRN Ionized Calcium less than 4.4 Clevidipine 25 mg/ IV Solution 50 mls @ 2 mls/hr 12/02/18 14:45 12/02/18 14:51 IV Not Given .Q24H ANGELICA Protocol 1 MG/HR Amiodarone HCl 300 mg/ 250 mls @ 25 mls/hr 12/02/18 14:03 Dextrose/Water IV .Q10H PRN A.FIB/FLUTTER Protocol 0.5 MG/MIN Insulin Human Regular 100 unit 101 mls @ 0 mls/hr 12/02/18 14:45 12/02/18 14:50 / Sodium Chloride IV 0.5 unit/hr .Q0M ANGELICA 0.505 mls/hr Administration Protocol Per Protocol Magnesium Hydroxide 2,400 mg 12/03/18 13:19 Milk Of Magnesia PO BID PRN Constipation Metoclopramide HCl 10 mg 12/02/18 14:03 Reglan IVP Q4H PRN Nausea And Vomiting Metoprolol Tartrate 12.5 mg 12/03/18 09:00 Lopressor PO BID COUNTS INCLUDE 234 BEDS AT THE [facility] Miscellaneous Information 1 each 12/02/18 14:03 Magnesium Per Protocol MISCELLANE DAILY PRN Per Protocol Protocol Miscellaneous Information 1 each 12/02/18 14:03 Phosphorus Per Protocol MISCELLANE DAILY PRN Per Protocol Protocol Miscellaneous Information 1 each 12/02/18 14:03 Potassium Per Protocol MISCELLANE DAILY PRN Per Protocol Protocol Mupirocin 1 applic 12/02/18 21:00 Bactroban Oint NASAL 12/05/18 21:01 BID COUNTS INCLUDE 234 BEDS AT THE [facility] Ondansetron HCl 4 mg 12/02/18 14:03 Zofran IVP Q6HR PRN Nausea And Vomiting Oxycodone HCl 10 mg 12/02/18 14:03 Oxyir PO 12/03/18 14:04 Q4H PRN Severe Pain Oxycodone HCl 5 mg 12/02/18 14:03 Oxyir PO 12/03/18 14:04 Q4H PRN Moderate Pain Pantoprazole Sodium 40 mg 12/03/18 09:00 Protonix IVP DAILY COUNTS INCLUDE 234 BEDS AT THE [facility] Senna/Docusate Sodium 2 each 12/03/18 21:00 Senokot-S PO HS COUNTS INCLUDE 234 BEDS AT THE [facility] Sodium Chloride 10 ml 12/02/18 21:00 Saline Flush IV BID COUNTS INCLUDE 234 BEDS AT THE [facility] Intake and Output 12/02/18 12/02/18 12/02/18 06:59 14:59 22:59 Intake Total 50 32 Output Total 1600 Balance 50 -1568 Intake: IV 50 32 Output: Urine 800 Estimated Blood Loss 800 Other: Weight 79.2 kg Assessment and Plan (1) Status post coronary artery bypass graft Current Visit: Yes Status: Acute Code(s): Z95.1 - PRESENCE OF AORTOCORONARY BYPASS GRAFT SNOMED Code(s): 472830153 (2) Diabetes mellitus Current Visit: No Status: Chronic Code(s): E11.9 - TYPE 2 DIABETES MELLITUS WITHOUT COMPLICATIONS SNOMED Code(s): 23220354 (3) Hyperlipidemia Current Visit: No Status: Chronic Code(s): E78.5 - HYPERLIPIDEMIA, UNSPECIFIED SNOMED Code(s): 97400076 (4) Hypertension Current Visit: No Status: Chronic Code(s): I10 - ESSENTIAL (PRIMARY) HYPERTE NSION SNOMED Code(s): 30161381 Plan: Continue current management. We'll watch for any cardiac arrhythmias. Further recommendations depend upon clinical course
[2018-12-02 15:12] LABS: Basophils % (A) 0 %; Eosinophils # (A) 0.1 k/uL (0-0.7); Eosinophils % (A) 1 %; HCT 21.7 % (34.0-46.0); Lymphocytes # (A) 1.1 k/uL (1.0-4.8); Lymphocytes % (A) 10 %; MCH 29.1 pg (25.0-35.0); MCHC 33.8 g/dL (31.0-37.0); MCV 86.2 fL (80.0-100.0); Mean Platelet Volume 6.6; Monocytes # (A) 0.3 k/uL (0-1.0); Monocytes % (A) 2 %; Neutrophils # (A) 9.3 k/uL (1.3-7.7); Neutrophils % (A) 86 %; Platelet Count 173 k/uL (150-450); RBC 2.52 m/uL (3.80-5.40); RDW 13.9 % (11.5-15.5); WBC 10.8 k/uL (3.8-10.6)
[2018-12-02 15:13] LABS: ALT 32 U/L (9-52); AST 43 U/L (14-36); Albumin 2.5 g/dL (3.5-5.0); Alkaline Phosphatase 38 U/L (38-126); Anion Gap 7 mmol/L; Blood Urea Nitrogen 17 mg/dL (7-17); Calcium 8.1 mg/dL (8.4-10.2); Carbon Dioxide 23 mmol/L (22-30); Chloride 106 mmol/L (98-107); Glucose 103 mg/dL (74-99); Magnesium 2.1 mg/dL (1.6-2.3); Potassium 4.3 mmol/L (3.5-5.1); Sodium 136 mmol/L (137-145); Total Bilirubin 0.8 mg/dL (0.2-1.3); Total Protein 4.5 g/dL (6.3-8.2)
[2018-12-02 15:14] LABS: HGB 7.3 gm/dL (11.4-16.0); INR 1.2 (<1.2); Partial Thromboplastin Time 29.5 sec (22.0-30.0); Prothrombin Time 12.5 sec (9.0-12.0)
--- NOTE | 2018-12-02 15:17 | XR ---
EXAMINATION TYPE: XR chest 1V portable DATE OF EXAM: 12/02/2018 COMPARISON: Prior chest 11/25/2017 HISTORY: Postop cardiac surgery TECHNIQUE: Single frontal view of the chest is obtained. FINDINGS: Patient is post median sternotomy. Endotracheal tube, orogastric tube, left chest tube, ri ght jugular central venous sheath and coaxial Mckinney-Al catheter, median sternal drain are overlying appropriate positions. No evident pneumothorax or sizable effusion. Lung volumes are low. Heart size may be exaggerated by rotation. Aorta is dense. Patchy perihilar density is present bilaterally. Inte rstitium is mildly increased. IMPRESSION: Expiratory rotated exam. Satisfactory postoperative chest x-ray. Probable atelectatic ch bishnu, there may be a component of volume overload. Follow-up recommended.
--- NOTE | 2018-12-02 15:17 | P.CNPUL ---
History of Present Illness Consult date: 12/02/18 Requesting physician: Juan Antonio Olivares Reason for consult: other (status post CABG) Chief complaint: symptomatic multivessel coronary artery disease with left main disease History of present illness: this is a 73-year-old female with history of multiple medical problems including type 2 diabetes, documented coronary artery disease and previous stent placement, history of peripheral arterial disease, patient was recently seen at [facility] for recurrent episodes of syncope, and workup revealed elevated troponin. Patient was transferred to [facility], and further workup was done.2-D echocardiogram showed good LV function, she was also found to have mitral valve regurgitation/mild cardiac catheterization showed 50% stenosis of her left main 60% stenosis of right coronary artery and 80% stenosis to her circumflex coronary artery 80% stenosis to her proximal LAD. Cardiothoracic surgery was consulted, patient was advised to undergo myocardial revascularization. Patient was discharged home a few days ago, and today she underwent elective myocardial revascularization. Postoperatively patient was brought into the ICU and I was asked to see her on consultation. She is presently on mechanical ventilation. Vital volume is 400, IMV rate of 12, FiO2 is 100%, and PEEP is 5. Chest x-ray showed mostly postoperative changes, no acute process was noted. ABG is pending. Review of Systems ROS unobtainable: due to endotracheal tube Past Medical History Past Medical History: Coronary Artery Disease (CAD), Chest Pain / Angina, Diabetes Mellitus, Eye Disorder, Hyperlipidemia, Hypertension, Myocardial Infarction (MD), Myocardial Infarction (non Q-wave), Osteoarthritis (OA), Thyroi d Disorder, Vascular Disorder Additional Past Medical History / Comment(s): 2000 HX ASHD, peripheral arterial disease, intermittent claudication involving infra renal aorta and rt and lt common iliac arteries (had stents palced), bilat cataracts, glaucoma L eye with stent. Last Myocardial Infarction Date:: History of Any Multi-Drug Resistant Organisms: None Reported Past Surgical History: Adenoidectomy, Heart Catheterization, Heart Catheterization With Stent, Tonsillectomy, Tubal Ligation Additional Past Surgical History / Comment(s): EXP. LAP 02/2012, STENT TO HEART X1, INFRARENAL AORTA STENT, STENTS TO RIGHT AND LEFT COMMONI ILLIAC ARTERIES. AORTOGRAM WITH RUNOFF 02/02/14 @ [facility] Past Anesthesia/Blood Transfusion Reactions: No Reported Reaction Additional Past Anesthesia/Blood Transfusion Reaction / Comment(s): pt states she has never had a blood transfusion Date of Last Stent Placement:: 2000 Smoking Status: Former smoker - Past Family History Mother Family Medical History: Dementia Additional Family Medical History / Comment(s): HEART PROBLEMS Father Family Medical History: Coronary Artery Disease (CAD), Myocardial Infarction (MD) Additional Family Medical History / Comment(s): Her father at age 79 with a myocardial infarction. Medications and Allergies Home Medications Medication Instructions Recorded Confirmed Type Aspirin 81 mg PO DAILY 01/31/14 12/02/18 History Ergocalciferol [Vitamin D2 50,000 units PO Q14D 01/31/14 12/02/18 History (DRISDOL)] Ezetimibe [Zetia] 10 mg PO DAILY 01/31/14 12/02/18 History Levothyroxine Sodium [Synthroid] 125 mcg PO [facility] 01/31/14 12/02/18 History Liraglutide [Victoza 2-Luiz] 1.8 mg SQ [facility] 01/31/14 12/02/18 History Lisinopril 40 mg PO DAILY 01/31/14 12/02/18 History Metoprolol Succinate [Toprol XL] 100 mg PO DAILY 01/31/14 12/02/18 History Nitroglycerin Sl Tabs [Nitrostat] 0.4 mg SUBLINGUAL Q5M PRN #25 tab 03/16/18 12/02/18 Rx metFORMIN HCL [Glucophage] 500 mg PO BID #0 03/16/18 12/02/18 Rx Atorvastatin [Lipitor] 80 mg PO DAILY 11/24/18 12/02/18 History Glimepiride [Amaryl] 6 mg PO -KT 11/24/18 12/02/18 History Isosorbide Mononitrate ER [Imdur] 15 mg PO DAILY 11/24/18 12/02/18 History Mupirocin 2% Oint [Bactroban 2% 1 applic NASAL BID #1 applic 11/28/18 12/02/18 Rx Oint] Clopidogrel [Plavix] 75 mg PO DAILY 12/02/18 12/02/18 History Allergies Allergy/AdvReac Type Severity Reaction Status Date / Time hydromorphone HCl Allergy RESPIRATORY Verified 12/02/18 14:31 [From Dilaudid] DEPRESSION Physical Exam Vitals: Vital Signs Temp Pulse Resp BP BP Pulse Ox 12/02/18 06:03 97.0 F L 86 16 159/65 154/68 97 Intake and Output 12/02/18 12/02/18 12/02/18 06:59 14:59 22:59 Intake Total 50 32 Output Total 1600 Balance 50 -1568 Intake: IV 50 32 Output: Urine 800 Estimated Blood Loss 800 Other: Weight 79.2 kg Physical Exam: Revealed a 73-year-old female on mechanical ventilation, in no distress. Sedated. Head: Atraumatic normocephalic. HEENT:[Neck is supple.] [No neck masses.] [No thyromegaly.] [No JVD.]PERRLA, EOMI, endotracheal tube is intact, orogastric tube is intact. Chest: [minimal crackles at the bases, no rhonchi and no wheezes. Symmetrical chest expansion noted.] Cardiac Exam: [Normal S1 and S2, no S3 gallop,2/6 systolic murmur thought the precordium, positive pericardial rub. Abdomen: [Soft, nontender, no megaly, no rebound, no guarding, normal bowel s ounds.] Extremities: [No clubbing, no edema, no cyanosis.] Neurological Exam:cannot be assessed, fully sedated. Psychiatric: Cannot be assessed. Skin: No rashes. Lymphatics: No lymphadenopathy. Results - Laboratory Findings ABG ABG pH 7.33 (7.35-7.45) L 12/02/18 13:32 ABG pCO2 46 mmHg (35-45) H 12/02/18 13:32 ABG pO2 38 mmHg (83-108) L* 12/02/18 13:32 ABG O2 Saturation 67.2 % (94-97) L 12/02/18 13:32 Abnormal lab findings: Abnormal Labs 11/28/18 12/02/18 12/02/18 14:43 06:15 08:42 ABG pH ABG pCO2 ABG pO2 133 H ABG Total CO2 26 H ABG O2 Saturation 99.7 H ABG Hematocrit 15 L* ABG Sodium ABG Potassium ABG Ionized Calcium ABG Glucose 132 H ABG Lactic Acid 2.6 H* Hemoglobin 5.0 L* POC Glucose (mg/dL) 148 H Arterial Blood Potassium Arterial Blood Glucose 132 H Crossmatch See Detail 12/02/18 12/02/18 12/02/18 08:45 09:34 10:53 ABG pH 7.46 H 7.52 H ABG pCO2 29 L ABG pO2 119 H >420 H ABG Total CO2 26 H 26 H 25 H ABG O2 Saturation 98.6 H 99.1 H 100.0 H ABG Hematocrit 29 L 29 L 19 L* ABG Sodium 129 L ABG Potassium 6.0 H ABG Ionized Calcium 3.9 L ABG Glucose 127 H 167 H 314 H ABG Lactic Acid 1.8 H 1.7 H Hemoglobin 9.4 L 9.4 L 6.2 L* POC Glucose (mg/dL) Arterial Blood Potassium 6.0 H Arterial Blood Glucose 127 H 167 H 314 H Crossmatch 12/02/18 12/02/18 12/02/18 11:22 12:11 13:32 ABG pH 7.33 L ABG pCO2 46 H ABG pO2 >420 H >420 H 38 L* ABG Total CO2 25 H 25 H 26 H ABG O2 Saturation 100.0 H 100.0 H 67.2 L ABG Hematocrit 20 L* 21 L 22 L ABG Sodium 133 L 134 L ABG Potassium 4.7 H ABG Ionized Calcium 4.2 L 4.2 L ABG Glucose 275 H 244 H 161 H ABG Lactic Acid 1.8 H 2.5 H* Hemoglobin 6.5 L* 6.8 L* 7.3 L POC Glucose (mg/dL) Arterial Blood Potassium 4.7 H Arterial Blood Glucose 275 H 244 H 161 H Crossmatch 12/02/18 14:39 ABG pH ABG pCO2 ABG pO2 ABG Total CO2 ABG O2 Saturation ABG Hematocrit ABG Sodium ABG Potassium ABG Ionized Calcium ABG Glucose ABG Lactic Acid Hemoglobin POC Glucose (mg/dL) 121 H Arterial Blood Potassium Arterial Blood Glucose Crossmatch - Diagnostic Findings Chest x-ray: image reviewed (as noted in HPI.) Assessment and Plan Assessment: impression: 1 status post myocardial revascularization for multiple vessel coronary artery disease. Patient is presently on mechanical ventilation. And that is expected. 2 multivessel coronary artery disease as noted on her recent cardiac catheterization. 3 benign essential hypertension 4 type 2 diabetes. 5 peripheral vessel occlusive disease involving lower extremities. Infrarenal aorta, right and left common iliac arteries and previous stents placement. 6 history of hypothyroidism, osteoarthritis, hyperlipidemia, nicotine dependence presently in remission,recent episodes of syncope. Recommendation: Reviewed chest x-ray,reviewed all labs,ABG is pending, her ventilator settings will be adjusted accordingly. Patient is already on bronchodilators.already on multiple cardiac meds as noted on the chart,we'll continue ventilatory support, hemodynamic support, GI and DVT prophylaxis, and we'll address weeding and possibly extubation in the next few hours. We'll continue to follow. Time with Patient: Greater than 30
[2018-12-02 15:22] LABS: ABG Base Excess -1.9 mmol/L; ABG HCO3 24 mmol/L (21-25); ABG PCO2 43 mmHg (35-45); ABG PH 7.35 (7.35-7.45); ABG PO2 >400 mmHg (83-108); ABG TCO2 25 mmol/L (19-24)
--- NOTE | 2018-12-02 15:25 | OP ---
OPERATIVE REPORT DATE OF SURGERY: 12/02/2018 PREOPERATIVE DIAGNOSIS: Coronary artery disease. POSTOPERATIVE DIAGNOSIS: Coronary artery disease. PROCEDURE: 1. Coronary artery bypass grafting x3 vessels (left internal mammary artery to left anterior descending artery, saphenous vein graft to the obtuse marginal artery, saphenous vein graft to distal right coronary artery). 2. Endoscopic vein harvest, left greater saphenous vein. 3. Epiaortic ultrasound. 4. Transesophageal echocardiogram. SURGEON: Juan Antonio Olivares MD. EXAMINATION PROCTOR: 1. RENATA Brush. 2. RENATA Rubio. ANESTHESIA: General. SPECIMEN: None. COMPLICATION: None. INDICATION: The patient is a 73-year-old female with a history of multiple medical problems including diabetes mellitus, hyperlipidemia, hypertension, tobacco use, and severe vascular disease who presented to the hospital after a syncopal episode. Cardiac catheterization revealed multivessel coronary disease. A coronary artery bypass was recommended. The risks, benefits, and alternatives to this procedure were discussed with the patient. All of her questions were answered. Consent was obtained. Findings all coronary arteries contained significant calcific disease. The LAD measured 1.3 mm. The distal right coronary artery measured 1.0 mm. The obtuse marginal artery measured 1.0 mm. The left internal mammary artery was a good conduit with brisk flow. The saphenous vein was a good conduit. The patient was taken to the operating room and placed supine on the operating room table. After the induction of anesthesia, she was prepped and draped in the usual sterile fashion. Preoperative transesophageal echocardiogram revealed a preserved left ventricular ejection fraction and trace mitral regurgitation. A median sternotomy was performed. The left internal mammary artery was harvested from was harvested in the standard fashion taking care to clip all branches. Intravenous heparin was administered. The vessel was transected to the revealing brisk flow. Brisk flow. Simultaneously, greater saphenous vein was harvested from left lower extremity using endoscopic technique. All branches were tied. The saphenous vein was a good conduit. A pericardial cradle was created. The ascending aorta was palpated. Calcific plaque was noted in the arch and at the takeoff of the innominate artery. There was also some plaque noted posteriorly. Epiaortic ultrasound was then performed. It confirmed some calcific plaque. I in the aorta along with additional islands of plaque in the arch and take and cord and takeoff of the innominate artery. An arterial cannula was then placed in an area free of calcific disease. A few ADA venous cannula was placed through the right atrial appendage and directed into the IVC. Both antegrade and retrograde catheters were placed as well. The patient was then placed on cardiopulmonary bypass with good decompression of the heart. The cross-clamp was applied. Cold blood potassium cardioplegia was delivered both antegrade retrograde fashion to achieve arrest of the heart. Of note, cardioplegia was delivered every 15- 20 minutes with the patient under crossclamp. We began by inspecting the inferior wall. The posterior descending artery was identified. It was diminutive in size and not amenable for bypass. The distal right coronary artery was then dissected free. A small arteriotomy was created. This vessel contained a thick posterior plaque. The vessel accepted a 1 mm probe, but had stuttering disease. Using the left using the saphenous vein in a reverse fashion, an end-to-side anastomosis was created. This performed using running 7-0 Prolene suture. The graft was hemostatic and had good flow. Next, the lateral wall was inspected. The obtuse marginal artery was identified. It was small in diameter but I felt it was better amenable for bypass. A small arteriotomy was created. This vessel accepted a 1 mm probe. Using saphenous vein in a reverse fashion, an end-to-side anastomosis was created. This performed using running 7-0 Prolene suture. The graft was hemostatic and had good flow. Finally the left anterior descending artery was identified. It was dissected free just beyond its diagonal branch. A small arteriotomy was created. This vessel accepted a 1 mm probe. Using the left internal mammary artery, an end-to-side anastomosis was created. This performed a running 8-0 Prolene suture. The graft was hemostatic. The mammary pedicle was then tacked down to the anterior surface of the heart. Attention was then turned to the proximal anastomoses. These were performed in end-to- side fashion using running 6-0 Prolene sutures. 1 L of warm blood was delivered in retrograde fashion. Both lidocaine and magnesium were administered as well. The cross- clamp was removed. The vein grafts were de-aired in the standard fashion. Distal anastomoses were inspected, appeared to be hemostatic. Temporary atrial and ventricular pacing wires were placed and brought through the skin. The retrograde catheter was removed. The patient was then weaned off cardiopulmonary bypass. He without any difficulty. Followup transesophageal echocardiogram confirmed good left ventricular ejection fraction and no change in the trivial mitral regurgitation. Protamine was administered. Our 1st. There were no adverse reactions. The remaining cannulas were then removed. The mediastinum was copiously irrigated with warm saline solution. All surgical sites were inspected and appeared to be hemostatic. Green for reinforcement sutures were placed as needed. Soft tissues reapproximated over the ascending aorta as well as over the apex of the heart. A straight 32-Filipino chest tubes were placed and directed into the left pleural space and into the mediastinum. These were all secured to the skin using sutures. The sternum was then reapproximated using stainless steel wires. The remainder of the wound was closed in layers. Sterile dressing was applied. The patient appeared to tolerate the procedure well. There were no immediate complications. She returned to the CCU in critical but stable condition. CHECO / HELEN: [id number] /
[2018-12-02 15:29] LABS: ABG Oxygen Saturation >102.0 % (94-97)
[2018-12-02 15:32] LABS: Glucose,Whole Blood 97 mg/dL (75-99)
[2018-12-02] MEDS ORDERED: IPRATROPIUM-ALBUTEROL 3 ML NEB INHALATION SCH (16:00)
[2018-12-02] MEDS: ceFAZolin IN SWFI 2 GM/20 ML SYRINGE IVP SCH ×2 (16:04→23:55)
[2018-12-02 16:18] LABS: Glucose,Whole Blood 105 mg/dL (75-99)
[2018-12-02] MEDS: ACETAMINOPHEN IV (For NPO) 1,000 MG in EMPTY BAG 1 BAG IVPB SCH (17:06)
[2018-12-02 17:22] LABS: Glucose,Whole Blood 168 mg/dL (75-99)
[2018-12-02 17:53] LABS: Basophils % (A) 0 %; Eosinophils # (A) 0.1 k/uL (0-0.7); Eosinophils % (A) 1 %; HCT 22.7 % (34.0-46.0); HGB 7.6 gm/dL (11.4-16.0); Lymphocytes # (A) 1.7 k/uL (1.0-4.8); Lymphocytes % (A) 13 %; MCH 29.1 pg (25.0-35.0); MCHC 33.6 g/dL (31.0-37.0); MCV 86.7 fL (80.0-100.0); Monocytes # (A) 0.7 k/uL (0-1.0); Monocytes % (A) 5 %; Neutrophils # (A) 10.5 k/uL (1.3-7.7); Neutrophils % (A) 80 %; Platelet Count 181 k/uL (150-450); RBC 2.61 m/uL (3.80-5.40); RDW 14.1 % (11.5-15.5)
[2018-12-02 18:06] LABS: INR 1.2 (<1.2)
[2018-12-02 18:13] LABS: ABG Base Excess -3.7 mmol/L; ABG HCO3 23 mmol/L (21-25); ABG Oxygen Saturation 98.1 % (94-97); ABG PCO2 45 mmHg (35-45); ABG PH 7.31 (7.35-7.45); ABG PO2 101 mmHg (83-108); ABG TCO2 24 mmol/L (19-24)
[2018-12-02 18:14] LABS: Glucose,Whole Blood 227 mg/dL (75-99)
[2018-12-02 18:18] LABS: Chloride 103 mmol/L (98-107)
[2018-12-02 18:20] LABS: ALT 42 U/L (9-52); AST 59 U/L (14-36); Albumin 3.2 g/dL (3.5-5.0); Alkaline Phosphatase 37 U/L (38-126); Anion Gap 9 mmol/L; Blood Urea Nitrogen 16 mg/dL (7-17); Calcium 8.3 mg/dL (8.4-10.2); Carbon Dioxide 23 mmol/L (22-30); Glucose 188 mg/dL (74-99); Potassium 4.8 mmol/L (3.5-5.1); Sodium 135 mmol/L (137-145); Total Bilirubin 1.1 mg/dL (0.2-1.3)
[2018-12-02] MEDS: ONDANSETRON 4 MG/2 ML VIAL IVP PRN (18:49)
[2018-12-02 19:13] LABS: Glucose,Whole Blood 211 mg/dL (75-99)
[2018-12-02] MEDS: IPRATROPIUM-ALBUTEROL 3 ML NEB INHALATION SCH (19:39)
[2018-12-02 20:18] LABS: Glucose,Whole Blood 185 mg/dL (75-99)
[2018-12-02 21:07] LABS: Glucose,Whole Blood 175 mg/dL (75-99)
[2018-12-02 21:13] LABS: Basophils % (A) 0 %; Eosinophils % (A) 0 %; HCT 22.1 % (34.0-46.0); HGB 7.4 gm/dL (11.4-16.0); Lymphocytes # (A) 0.7 k/uL (1.0-4.8); Lymphocytes % (A) 7 %; MCH 28.6 pg (25.0-35.0); MCHC 33.3 g/dL (31.0-37.0); MCV 86.1 fL (80.0-100.0); Monocytes # (A) 0.4 k/uL (0-1.0); Monocytes % (A) 4 %; Neutrophils # (A) 9.5 k/uL (1.3-7.7); Neutrophils % (A) 89 %; Platelet Count 185 k/uL (150-450); RBC 2.57 m/uL (3.80-5.40); WBC 10.7 k/uL (3.8-10.6)
[2018-12-02] MEDS: BENZOCAINE/MENTHOL LOZENG 1 EACH LOZENGE MUCOUS MEM PRN (21:26)
[2018-12-02] MEDS: HEPARIN SODIUM,PORCINE 5,000 UNIT/ML 1 ML VIAL SQ SCH (21:28)
[2018-12-02 22:11] LABS: Glucose,Whole Blood 143 mg/dL (75-99)
[2018-12-02] MEDS: MUPIROCIN 2% OINT 22 GM TUBE NASAL SCH (22:30)
[2018-12-02 23:25] LABS: Glucose,Whole Blood 123 mg/dL (75-99)
[2018-12-03 00:12] LABS: Glucose,Whole Blood 114 mg/dL (75-99)
[2018-12-03] MEDS: ACETAMINOPHEN IV (For NPO) 1,000 MG in EMPTY BAG 1 BAG IVPB SCH ×4 (00:26→17:05)
[2018-12-03] MEDS: ALBUMIN HUMAN 5% 250 ML in EMPTY BAG 1 BAG IVPB PRN ×3 (01:05→11:08)
[2018-12-03 01:22] LABS: Glucose,Whole Blood 106 mg/dL (75-99)
[2018-12-03 02:19] LABS: Glucose,Whole Blood 145 mg/dL (75-99)
[2018-12-03 03:16] LABS: Glucose,Whole Blood 156 mg/dL (75-99)
[2018-12-03 04:22] LABS: Glucose,Whole Blood 144 mg/dL (75-99)
[2018-12-03 04:35] LABS: Basophils % (A) 0 %; Eosinophils % (A) 0 %; HCT 20.2 % (34.0-46.0); Lymphocytes % (A) 16 %; MCH 28.6 pg (25.0-35.0); MCHC 32.5 g/dL (31.0-37.0); Mean Platelet Volume 7.9; Monocytes # (A) 0.3 k/uL (0-1.0); Monocytes % (A) 4 %; Neutrophils # (A) 5.1 k/uL (1.3-7.7); Neutrophils % (A) 79 %; Platelet Count 151 k/uL (150-450); RDW 14.3 % (11.5-15.5); WBC 6.4 k/uL (3.8-10.6)
[2018-12-03 04:54] LABS: Ionized Calcium 4.8 mg/dL (4.5-5.3)
[2018-12-03 05:05] LABS: HGB 6.6 gm/dL (11.4-16.0)
[2018-12-03 05:24] LABS: Glucose,Whole Blood 133 mg/dL (75-99)
[2018-12-03 05:26] LABS: ALT 42 U/L (9-52); AST 46 U/L (14-36); Albumin 3.1 g/dL (3.5-5.0); Alkaline Phosphatase 30 U/L (38-126); Anion Gap 7 mmol/L; Blood Urea Nitrogen 14 mg/dL (7-17); Calcium 7.9 mg/dL (8.4-10.2); Carbon Dioxide 23 mmol/L (22-30); Chloride 107 mmol/L (98-107); Glucose 128 mg/dL (74-99); Magnesium 1.8 mg/dL (1.6-2.3); Potassium 4.6 mmol/L (3.5-5.1); Sodium 137 mmol/L (137-145); Total Bilirubin 0.8 mg/dL (0.2-1.3); Total Protein 4.9 g/dL (6.3-8.2)
[2018-12-03] MEDS: INSULIN REGULAR 100 UNIT in SODIUM CHLORIDE 0.9% 100 ML IV SCH (05:27)
[2018-12-03 06:52] LABS: Glucose,Whole Blood 130 mg/dL (75-99)
[2018-12-03] MEDS ORDERED: Magnesium Replacement Protocol 1 EACH MISC MISCELLANE PRN (07:11)
--- NOTE | 2018-12-03 07:31 | XR ---
EXAMINATION TYPE: XR chest 1V portable DATE OF EXAM: 12/03/2018 COMPARISON: 12/02/2018 HISTORY: Status post cardiac surgery TECHNIQUE: Single frontal view of the chest is obtained. FINDINGS: Overall there is improved aeration of the lungs. Left thoracostomy tube, mediastinal drains , post CABG changes of the mediastinum, and right [place] catheter are unchanged. There has been in terval extubation and removal of the enteric tube. Scattered areas of linear atelectasis remaining. C ardia mediastinal silhouette is enlarged. Diffuse osteopenia again noted. IMPRESSION: Interval removal of the endotracheal tube and enteric tubes. Improved aeration of the delfin ngs with scattered areas of residual subsegmental atelectasis.
[2018-12-03] MEDS: IPRATROPIUM-ALBUTEROL 3 ML NEB INHALATION SCH ×4 (07:47→20:28)
[2018-12-03] MEDS: HEPARIN SODIUM,PORCINE 5,000 UNIT/ML 1 ML VIAL SQ SCH ×2 (07:56→15:42)
--- NOTE | 2018-12-03 07:56 | CONS ---
CONSULTATION DATE OF CONSULTATION: 12/02/2018 REASON FOR CONSULTATION: Medical management requested by Dr. Olivares. CONSULTATION: This is a pleasant 73-year-old patient who was recently in the hospital and discharged on 11/28/2018. Patient had ruled in for an acute NC and cardiac cath showed severe triple-vessel disease. Other chronic stable medical conditions include diabetes mellitus type 2, hypertension, hyperlipidemia, osteoarthritis, hypothyroid, peripheral artery disease. The patient is status post coronary bypass. The patient was extubated up to 4 hours. The patient did drop blood pressure, was given albumin. Currently has 2 mediastinal chest tubes and one left pleural chest tube. Currently on 3 L of oxygen. Awake, able answer simple questions. Drips include nitroglycerin and insulin. The patient previously was on Lasix drip. The patient does feel a bit tired. REVIEW OF SYSTEMS: CONSTITUTIONAL: Tired. HEENT: None. RESPIRATORY: Some shortness of breath. CARDIOVASCULAR: None. GASTROINTESTINAL: None. GENITOURINARY: None. MUSCULOSKELETAL: Arthritic pain in joints. DERMATOLOGICAL, HEMATOLOGIC, LYMPHATIC: None. PSYCHIATRY: None. PAST MEDICAL HISTORY: Diabetes mellitus type 2, hypertension, hyperlipidemia, osteoarthritis, hypothyroid, coronary artery disease, peripheral artery disease, intermittent claudication, bilateral cataract of the left eye. PAST SURGICAL HISTORY: Cardiac cath with stent, tonsillectomy, tubal ligation, exploratory laparotomy, stent to the heart, infrarenal aortic stent, stent to the right and left common iliac artery. SOCIAL HISTORY: The patient smoked 2 packs a day for 40 years, stopped in 2003. . Alcohol occasionally. FAMILY HISTORY: Heart trouble and dementia. HOME MEDICATIONS: 1. Glucophage 500 mg b.i.d. 2. Nitrostat 0.4 sublingual q.5 p.r.n. 3. Bactroban 2% application nasal b.i.d. 4. Toprol-XL 100 mg a day. 5. Lisinopril 40 mg a day. 6. Victoza 1.8 mg subcu before breakfast. 7. Synthroid 125 mcg a day. 8. Imdur ER 50 mg a day. 9. Amaryl 6 mg before breakfast. 10.Zetia 10 mg p.o. daily. 11.Vitamin D2. 12.Plavix 75 mg a day. 13.Lipitor 80 mg a day. 14.Aspirin 81 mg a day. ALLERGIES: DILAUDID. PHYSICAL EXAMINATION: VITAL SIGNS: Temperature 97.7 pulse 94, respirations 13, blood pressure 120/45, pulse ox 99 percent 3 L. GENERAL APPEARANCE: Well built, BMI 31.9. Lying in bed, tired-appearing. EYES: Pupils equal. Conjunctivae normal. HEENT: External appearance of ears and nose normal. Oral cavity a bit dry. Nasal cannula ( ). NECK: JVD unable to assess. Mass not palpable. Respiratory effort increased. LUNGS: Diminished breath sounds. CARDIOVASCULAR: 1st and 2nd heart sounds normal, no edema. CHEST WALL: The patient has got 2 mediastinal chest tubes and one left pleural chest tube. ABDOMEN: Soft, nontender. Liver and spleen not palpable. LYMPHATICS: No lymph node palpable in neck or axilla. PSYCHIATRY: Alert and oriented x3. Mood and affect slightly tired-appearing. NEUROLOGICAL: Pupils equal, no facial asymmetry. Moving all 4 limbs. INVESTIGATIONS: White count 10.7, hemoglobin 7. The patient's hemoglobin preoperatively was 12.2. ASSESSMENT: 1. Coronary bypass x3. 2. Recent acute non-Q-wave myocardial infarction 2 weeks ago. 3. Diabetes mellitus type 2 on oral hypoglycemic. 4. Essential hypertension. 5. Hyperlipidemia. 6. Primary osteoarthritis. 7. Hypothyroid. 8. Peripheral artery disease. PLAN: Patient is status post bypass. Currently ON nitroglycerin and insulin drip. Three chest tubes remain in place. Oxygen supplement of 3 L. Accu-Cheks will be closely followed. The patient also getting DuoNeb and albumin. Care was discussed with the patient. MMODL / IJN: [id number] /
[2018-12-03] MEDS: CLOPIDOGREL 75 MG TAB PO SCH (07:57)
[2018-12-03] MEDS: ASPIRIN 325 MG TAB PO SCH (07:57)
[2018-12-03] MEDS: ATORVASTATIN 40 MG TAB PO SCH (07:57)
[2018-12-03] MEDS: ceFAZolin IN SWFI 2 GM/20 ML SYRINGE IVP SCH (07:57)
[2018-12-03] MEDS: PANTOPRAZOLE 40 MG/10 ML VIAL IVP SCH (07:58)
[2018-12-03] MEDS: MAGNESIUM SULFATE-D5W PMX 1 GM in DEXTROSE/WATER 1 100ML.BAG IVPB SCH ×2 (08:19→10:15)
[2018-12-03 08:24] LABS: Glucose,Whole Blood 119 mg/dL (75-99)
[2018-12-03] MEDS: METOPROLOL TARTRATE 25 MG TAB PO SCH ×2 (08:53→20:11)
[2018-12-03] MEDS ORDERED: METOPROLOL TARTRATE 12.5 MG TAB PO STA (08:53)
[2018-12-03] MEDS: MUPIROCIN 2% OINT 22 GM TUBE NASAL SCH ×2 (08:59→20:22)
[2018-12-03] MEDS ORDERED: METOPROLOL TARTRATE 12.5 MG TAB PO SCH (09:00)
[2018-12-03] MEDS ORDERED: ALBUMIN HUMAN 5% 250 ML in EMPTY BAG 1 BAG IVPB ONE ×2 (10:01→10:53)
[2018-12-03 10:25] LABS: Glucose,Whole Blood 153 mg/dL (75-99)
[2018-12-03 11:26] LABS: Glucose,Whole Blood 169 mg/dL (75-99)
[2018-12-03] MEDS ORDERED: DOPamine DRIP 800 MG in DEXTROSE/WATER 1 250ML.BAG IV SCH ×2 (11:45→11:48)
--- NOTE | 2018-12-03 12:05 | P.PN ---
Subjective Progress Note Date: 12/03/18 Principal diagnosis: status post CABG for symptomatic multivessel coronary artery disease, postoperative day #1. this is a 73-year-old female with history of multiple medical problems including type 2 diabetes, documented coronary artery disease and previous stent placement, history of peripheral arterial disease, patient was recently seen at [facility] for recurrent episodes of syncope, and workup revealed elevated troponin. Patient was transferred to [facility], and further workup was done.2-D echocardiogram showed good LV function, she was also found to have mitral valve regurgitation/mild cardiac catheterization showed 50% stenosis of her left main 60% stenosis of right coronary artery and 80% stenosis to her circumflex coronary artery 80% stenosis to her proximal LAD. Cardiothoracic surgery was consulted, patient was advised to undergo myocardial revascularization. Patient was discharged home a few days ago, and today she underwent elective myocardial revascularization. Postoperatively patient was brought into the ICU and I was asked to see her on consultation. She is presently on mechanical ventilation. Vital volume is 400, IMV rate of 12, FiO2 is 100%, and PEEP is 5. Chest x-ray showed mostly postoperative changes, no acute process was noted. ABG is pending. Patient was reevaluated today on 12/13/2018, remains in the ICU, she was extubated shortly after she arrived to the ICU last night. Her post operative course has been relatively uneventful. However he has a low hemoglobin of 6.6 today, and she is scheduled to have a unit of packed RBCs as ordered by thoracic surgery on the case.chest x-ray looks great, she has minimal subsegmental atelectasis. Left thoracostomy tube, mediastinal drains, and postoperative changes are noted on the chest x-ray. Pulmonary artery catheter is unchanged.all labs were reviewed, again her hemoglobin is low and that being addressed already. The patient herself is asymptomatic, she is on few liters nasal cannula. Objective - Vital Signs Vital signs: Vital Signs Temp 98.4 F 12/03/18 08:30 Pulse 82 12/03/18 08:50 Resp 14 12/03/18 08:50 BP 114/41 12/03/18 06:15 Pulse Ox 98 12/03/18 08:50 Intake & Output 12/02/18 12/03/18 12/03/18 18:59 06:59 18:59 Intake Total 392.068 0670.624 1444.427 Output Total 2455 870 287 Balance -1466.254 496.790 2515.427 Weight 92.8 kg Intake: IV 982 1554 585 ACETAMINOPHEN IV (For NPO 100 100 ) 1,000 mg In Empty Bag 1 bag @ 400 mls/hr IVPB Q6HR [facility] Rx#:[id number] Albumin Human 5% 250 ml 500 500 250 In Empty Bag 1 bag @ 250 mls/hr IVPB Q1HR PRN Rx#: [id number] CO/CI 100 320 70 Lactated Ringers 1,000 ml 250 500 210 @ 20 mls/hr IV .Q24H [facility] Rx#:[id number] Nitroglycerin-D5w Pmx 50 35 10 mg In Dextrose/Water 1 250ml.bag @ 5 MCG/MIN 1.5 mls/hr IV .Q24H [facility] Rx#: [id number] pressure bag 99 45 Intake, IV Titration 6.746 46.624 239.427 Amount Clevidipine Butyrate 25 4.667 5.6 mg In Empty Bag 1 bag @ 1 MG/HR 2 mls/hr IV .Q24H [facility] Rx#:[id number] Insulin Regular 100 unit 2.079 41.024 9.427 In Sodium Chloride 0.9% 100 ml @ Per Protocol IV .Q0M [facility] Rx#:[id number] Magnesium Sulfate-D5w Pmx 200 1 gm In Dextrose/Water 1 100ml.bag @ 100 mls/hr IVPB Q1H [facility] Rx#: [id number] ceFAZolin 2,000 mg In 30 Sodium Chloride 0.9% 30 ml @ Per Protocol IVPB ONCE ONE Rx#:[id number] Blood Product 0 620 Rc Pheresis As-3 Unit 0 310 [id number] Output: Chest Tube Drainage 90 275 160 Bilateral Mediastinal 60 147 80 Left Pleural 30 128 80 Urine 1565 595 127 Estimated Blood Loss 800 Other: Voiding Method Indwelling Catheter Indwelling Catheter Indwelling Catheter ABP, PAP, CO, CI - Last Documented Arterial Blood Pressure 116/41 Pulmonary Artery Pressure 19/7 Cardiac Output 3.8 Cardiac Index 2.6 - Exam Physical Exam: Revealed a 73-year-old female in no distress. Head: Atraumatic, normocephalic. HEENT:[Neck is supple.] [No neck masses.] [No thyromegaly.] [No JVD.] Chest: [diminished breath sounds and crackles at the bases. No rhonchi no w heezes. Cardiac Exam: [Normal S1 and S2, no S3 gallop, no murmur.] Abdomen: [Soft, nontender, no megaly, no rebound, no guarding, normal bowel sounds.] Extremities: [No clubbing, no edema, no cyanosis.] Neurological Exam: [No focal neurologic deficit.] skin: No rashes. Psychiatric: Normal mood affect and mental status examination. - Labs CBC & Chem 7: 12/03/18 04:05 12/03/18 04:05 Labs: Abnormal Lab Results - Last 24 Hours (Table) 11/28/18 12/02/18 12/02/18 Range/Units 14:43 08:42 08:45 WBC (3.8-10.6) k/uL RBC (3.80-5.40) m/uL Hgb (11.4-16.0) gm/dL Hct (34.0-46.0) % Neutrophils # (1.3-7.7) k/uL Lymphocytes # (1.0-4.8) k/uL PT (9.0-12.0) sec INR (<1.2) APTT (22.0-30.0) sec ABG pH (7.35-7.45) ABG pCO2 (35-45) mmHg ABG pO2 133 H (83-108) mmHg ABG Total CO2 26 H 26 H (19-24) mmol/L ABG O2 Saturation 99.7 H 98.6 H (94-97) % ABG Hematocrit 15 L* 29 L (34.0-46.0) % ABG Sodium (135-146) mmol/L ABG Potassium (3.4-4.5) mmol/L ABG Ionized Calcium (4.5-5.3) mg/dL ABG Glucose 132 H 127 H (75-99) mg/dL ABG Lactic Acid 2.6 H* 1.8 H (0.5-1.6) mmol/L Hemoglobin 5.0 L* 9.4 L (11.4-16.0) gm/dL Sodium (137-145) mmol/L Glucose (74-99) mg/dL POC Glucose (mg/dL) (75-99) mg/dL Calcium (8.4-10.2) mg/dL AST (14-36) U/L Alkaline Phosphatase (38-126) U/L Total Protein (6.3-8.2) g/dL Albumin (3.5-5.0) g/dL Arterial Blood Potassium (3.4-4.5) mmol/L Arterial Blood Glucose 132 H 127 H (75-99) mg/dL Crossmatch See Detail 12/02/18 12/02/18 12/02/18 Range/Units 09:34 10:53 11:22 WBC (3.8-10.6) k/uL RBC (3.80-5.40) m/uL Hgb (11.4-16.0) gm/dL Hct (34.0-46.0) % Neutrophils # (1.3-7.7) k/uL Lymphocytes # (1.0-4.8) k/uL PT (9.0-12.0) sec INR (<1.2) APTT (22.0-30.0) sec ABG pH 7.46 H 7.52 H (7.35-7.45) ABG pCO2 29 L (35-45) mmHg ABG pO2 119 H >420 H >420 H (83-108) mmHg ABG Total CO2 26 H 25 H 25 H (19-24) mmol/L ABG O2 Saturation 99.1 H 100.0 H 100.0 H (94-97) % ABG Hematocrit 29 L 19 L* 20 L* (34.0-46.0) % ABG Sodium 129 L 133 L (135-146) mmol/L ABG Potassium 6.0 H 4.7 H (3.4-4.5) mmol/L ABG Ionized Calcium 3.9 L 4.2 L (4.5-5.3) mg/dL ABG Glucose 167 H 314 H 275 H (75-99) mg/dL ABG Lactic Acid 1.7 H (0.5-1.6) mmol/L Hemoglobin 9.4 L 6.2 L* 6.5 L* (11.4-16.0) gm/dL Sodium (137-145) mmol/L Glucose (74-99) mg/dL POC Glucose (mg/dL) (75-99) mg/dL Calcium (8.4-10.2) mg/dL AST (14-36) U/L Alkaline Phosphatase (38-126) U/L Total Protein (6.3-8.2) g/dL Albumin (3.5-5.0) g/dL Arterial Blood Potassium 6.0 H 4.7 H (3.4-4.5) mmol/L Arterial Blood Glucose 167 H 314 H 275 H (75-99) mg/dL Crossmatch 12/02/18 12/02/18 12/02/18 Range/Units 12:11 13:32 14:39 WBC (3.8-10.6) k/uL RBC (3.80-5.40) m/uL Hgb (11.4-16.0) gm/dL Hct (34.0-46.0) % Neutrophils # (1.3-7.7) k/uL Lymphocytes # (1.0-4.8) k/uL PT (9.0-12.0) sec INR (<1.2) APTT (22.0-30.0) sec ABG pH 7.33 L (7.35-7.45) ABG pCO2 46 H (35-45) mmHg ABG pO2 >420 H 38 L* (83-108) mmHg ABG Total CO2 25 H 26 H (19-24) mmol/L ABG O2 Saturation 100.0 H 67.2 L (94-97) % ABG Hematocrit 21 L 22 L (34.0-46.0) % ABG Sodium 134 L (135-146) mmol/L ABG Potassium (3.4-4.5) mmol/L ABG Ionized Calcium 4.2 L (4.5-5.3) mg/dL ABG Glucose 244 H 161 H (75-99) mg/dL ABG Lactic Acid 1.8 H 2.5 H* (0.5-1.6) mmol/L Hemoglobin 6.8 L* 7.3 L (11.4-16.0) gm/dL Sodium (137-145) mmol/L Glucose (74-99) mg/dL POC Glucose (mg/dL) 121 H (75-99) mg/dL Calcium (8.4-10.2) mg/dL AST (14-36) U/L Alkaline Phosphatase (38-126) U/L Total Protein (6.3-8.2) g/dL Albumin (3.5-5.0) g/dL Arterial Blood Potassium (3.4-4.5) mmol/L Arterial Blood Glucose 244 H 161 H (75-99) mg/dL Crossmatch 12/02/18 12/02/18 12/02/18 Range/Units 14:40 14:40 14:40 WBC 10.8 H (3.8-10.6) k/uL RBC 2.52 L (3.80-5.40) m/uL Hgb 7.3 L D (11.4-16.0) gm/dL Hct 21.7 L (34.0-46.0) % Neutrophils # 9.3 H (1.3-7.7) k/uL Lymphocytes # (1.0-4.8) k/uL PT 12.5 H (9.0-12.0) sec INR 1.2 H (<1.2) APTT (22.0-30.0) sec ABG pH (7.35-7.45) ABG pCO2 (35-45) mmHg ABG pO2 (83-108) mmHg ABG Total CO2 (19-24) mmol/L ABG O2 Saturation (94-97) % ABG Hematocrit (34.0-46.0) % ABG Sodium (135-146) mmol/L ABG Potassium (3.4-4.5) mmol/L ABG Ionized Calcium (4.5-5.3) mg/dL ABG Glucose (75-99) mg/dL ABG Lactic Acid (0.5-1.6) mmol/L Hemoglobin (11.4-16.0) gm/dL Sodium 136 L (137-145) mmol/L Glucose 103 H (74-99) mg/dL POC Glucose (mg/dL) (75-99) mg/dL Calcium 8.1 L (8.4-10.2) mg/dL AST 43 H (14-36) U/L Alkaline Phosphatase (38-126) U/L Total Protein 4.5 L (6.3-8.2) g/dL Albumin 2.5 L (3.5-5.0) g/dL Arterial Blood Potassium (3.4-4.5) mmol/L Arterial Blood Glucose (75-99) mg/dL Crossmatch 12/02/18 12/02/18 12/02/18 Range/Units 15:19 16:07 17:11 WBC (3.8-10.6) k/uL RBC (3.80-5.40) m/uL Hgb (11.4-16.0) gm/dL Hct (34.0-46.0) % Neutrophils # (1.3-7.7) k/uL Lymphocytes # (1.0-4.8) k/uL PT (9.0-12.0) sec INR (<1.2) APTT (22.0-30.0) sec ABG pH (7.35-7.45) ABG pCO2 (35-45) mmHg ABG pO2 >400 H (83-108) mmHg ABG Total CO2 25 H (19-24) mmol/L ABG O2 Saturation >102.0 H (94-97) % ABG Hematocrit (34.0-46.0) % ABG Sodium (135-146) mmol/L ABG Potassium (3.4-4.5) mmol/L ABG Ionized Calcium (4.5-5.3) mg/dL ABG Glucose (75-99) mg/dL ABG Lactic Acid (0.5-1.6) mmol/L Hemoglobin (11.4-16.0) gm/dL Sodium (137-145) mmol/L Glucose (74-99) mg/dL POC Glucose (mg/dL) 105 H 168 H (75-99) mg/dL Calcium (8.4-10.2) mg/dL AST (14-36) U/L Alkaline Phosphatase (38-126) U/L Total Protein (6.3-8.2) g/dL Albumin (3.5-5.0) g/dL Arterial Blood Potassium (3.4-4.5) mmol/L Arterial Blood Glucose (75-99) mg/dL Crossmatch 12/02/18 12/02/18 12/02/18 Range/Units 17:40 17:40 17:40 WBC 13.0 H (3.8-10.6) k/uL RBC 2.61 L (3.80-5.40) m/uL Hgb 7.6 L (11.4-16.0) gm/dL Hct 22.7 L (34.0-46.0) % Neutrophils # 10.5 H (1.3-7.7) k/uL Lymphocytes # (1.0-4.8) k/uL PT (9.0-12.0) sec INR 1.2 H (<1.2) APTT 58.0 H (22.0-30.0) sec ABG pH (7.35-7.45) ABG pCO2 (35-45) mmHg ABG pO2 (83-108) mmHg ABG Total CO2 (19-24) mmol/L ABG O2 Saturation (94-97) % ABG Hematocrit (34.0-46.0) % ABG Sodium (135-146) mmol/L ABG Potassium (3.4-4.5) mmol/L ABG Ionized Calcium (4.5-5.3) mg/dL ABG Glucose (75-99) mg/dL ABG Lactic Acid (0.5-1.6) mmol/L Hemoglobin (11.4-16.0) gm/dL Sodium 135 L (137-145) mmol/L Glucose 188 H (74-99) mg/dL POC Glucose (mg/dL) (75-99) mg/dL Calcium 8.3 L (8.4-10.2) mg/dL AST 59 H (14-36) U/L Alkaline Phosphatase 37 L (38-126) U/L Total Protein 5.0 L (6.3-8.2) g/dL Albumin 3.2 L (3.5-5.0) g/dL Arterial Blood Potassium (3.4-4.5) mmol/L Arterial Blood Glucose (75-99) mg/dL Crossmatch 12/02/18 12/02/18 12/02/18 Range/Units 18:03 18:09 19:01 WBC (3.8-10.6) k/uL RBC (3.80-5.40) m/uL Hgb (11.4-16.0) gm/dL Hct (34.0-46.0) % Neutrophils # (1.3-7.7) k/uL Lymphocytes # (1.0-4.8) k/uL PT (9.0-12.0) sec INR (<1.2) APTT (22.0-30.0) sec ABG pH 7.31 L (7.35-7.45) ABG pCO2 (35-45) mmHg ABG pO2 (83-108) mmHg ABG Total CO2 (19-24) mmol/L ABG O2 Saturation 98.1 H (94-97) % ABG Hematocrit (34.0-46.0) % ABG Sodium (135-146) mmol/L ABG Potassium (3.4-4.5) mmol/L ABG Ionized Calcium (4.5-5.3) mg/dL ABG Glucose (75-99) mg/dL ABG Lactic Acid (0.5-1.6) mmol/L Hemoglobin (11.4-16.0) gm/dL Sodium (137-145) mmol/L Glucose (74-99) mg/dL POC Glucose (mg/dL) 227 H 211 H (75-99) mg/dL Calcium (8.4-10.2) mg/dL AST (14-36) U/L Alkaline Phosphatase (38-126) U/L Total Protein (6.3-8.2) g/dL Albumin (3.5-5.0) g/dL Arterial Blood Potassium (3.4-4.5) mmol/L Arterial Blood Glucose (75-99) mg/dL Crossmatch 12/02/18 12/02/18 12/02/18 Range/Units 20:06 20:55 20:58 WBC 10.7 H (3.8-10.6) k/uL RBC 2.57 L (3.80-5.40) m/uL Hgb 7.4 L (11.4-16.0) gm/dL Hct 22.1 L (34.0-46.0) % Neutrophils # 9.5 H (1.3-7.7) k/uL Lymphocytes # 0.7 L (1.0-4.8) k/uL PT (9.0-12.0) sec INR (<1.2) APTT (22.0-30.0) sec ABG pH (7.35-7.45) ABG pCO2 (35-45) mmHg ABG pO2 (83-108) mmHg ABG Total CO2 (19-24) mmol/L ABG O2 Saturation (94-97) % ABG Hematocrit (34.0-46.0) % ABG Sodium (135-146) mmol/L ABG Potassium (3.4-4.5) mmol/L ABG Ionized Calcium (4.5-5.3) mg/dL ABG Glucose (75-99) mg/dL ABG Lactic Acid (0.5-1.6) mmol/L Hemoglobin (11.4-16.0) gm/dL Sodium (137-145) mmol/L Glucose (74-99) mg/dL POC Glucose (mg/dL) 185 H 175 H (75-99) mg/dL Calcium (8.4-10.2) mg/dL AST (14-36) U/L Alkaline Phosphatase (38-126) U/L Total Protein (6.3-8.2) g/dL Albumin (3.5-5.0) g/dL Arterial Blood Potassium (3.4-4.5) mmol/L Arterial Blood Glucose (75-99) mg/dL Crossmatch 12/02/18 12/02/18 12/03/18 Range/Units 22:00 23:14 00:00 WBC (3.8-10.6) k/uL RBC (3.80-5.40) m/uL Hgb (11.4-16.0) gm/dL Hct (34.0-46.0) % Neutrophils # (1.3-7.7) k/uL Lymphocytes # (1.0-4.8) k/uL PT (9.0-12.0) sec INR (<1.2) APTT (22.0-30.0) sec ABG pH (7.35-7.45) ABG pCO2 (35-45) mmHg ABG pO2 (83-108) mmHg ABG Total CO2 (19-24) mmol/L ABG O2 Saturation (94-97) % ABG Hematocrit (34.0-46.0) % ABG Sodium (135-146) mmol/L ABG Potassium (3.4-4.5) mmol/L ABG Ionized Calcium (4.5-5.3) mg/dL ABG Glucose (75-99) mg/dL ABG Lactic Acid (0.5-1.6) mmol/L Hemoglobin (11.4-16.0) gm/dL Sodium (137-145) mmol/L Glucose (74-99) mg/dL POC Glucose (mg/dL) 143 H 123 H 114 H (75-99) mg/dL Calcium (8.4-10.2) mg/dL AST (14-36) U/L Alkaline Phosphatase (38-126) U/L Total Protein (6.3-8.2) g/dL Albumin (3.5-5.0) g/dL Arterial Blood Potassium (3.4-4.5) mmol/L Arterial Blood Glucose (75-99) mg/dL Crossmatch 12/03/18 12/03/18 12/03/18 Range/Units 01:10 02:08 03:04 WBC (3.8-10.6) k/uL RBC (3.80-5.40) m/uL Hgb (11.4-16.0) gm/dL Hct (34.0-46.0) % Neutrophils # (1.3-7.7) k/uL Lymphocytes # (1.0-4.8) k/uL PT (9.0-12.0) sec INR (<1.2) APTT (22.0-30.0) sec ABG pH (7.35-7.45) ABG pCO2 (35-45) mmHg ABG pO2 (83-108) mmHg ABG Total CO2 (19-24) mmol/L ABG O2 Saturation (94-97) % ABG Hematocrit (34.0-46.0) % ABG Sodium (135-146) mmol/L ABG Potassium (3.4-4.5) mmol/L ABG Ionized Calcium (4.5-5.3) mg/dL ABG Glucose (75-99) mg/dL ABG Lactic Acid (0.5-1.6) mmol/L Hemoglobin (11.4-16.0) gm/dL Sodium (137-145) mmol/L Glucose (74-99) mg/dL POC Glucose (mg/dL) 106 H 145 H 156 H (75-99) mg/dL Calcium (8.4-10.2) mg/dL AST (14-36) U/L Alkaline Phosphatase (38-126) U/L Total Protein (6.3-8.2) g/dL Albumin (3.5-5.0) g/dL Arterial Blood Potassium (3.4-4.5) mmol/L Arterial Blood Glucose (75-99) mg/dL Crossmatch 12/03/18 12/03/18 12/03/18 Range/Units 04:05 04:05 04:10 WBC (3.8-10.6) k/uL RBC 2.30 L (3.80-5.40) m/uL Hgb 6.6 L* (11.4-16.0) gm/dL Hct 20.2 L (34.0-46.0) % Neutrophils # (1.3-7.7) k/uL Lymphocytes # (1.0-4.8) k/uL PT (9.0-12.0) sec INR (<1.2) APTT (22.0-30.0) sec ABG pH (7.35-7.45) ABG pCO2 (35-45) mmHg ABG pO2 (83-108) mmHg ABG Total CO2 (19-24) mmol/L ABG O2 Saturation (94-97) % ABG Hematocrit (34.0-46.0) % ABG Sodium (135-146) mmol/L ABG Potassium (3.4-4.5) mmol/L ABG Ionized Calcium (4.5-5.3) mg/dL ABG Glucose (75-99) mg/dL ABG Lactic Acid (0.5-1.6) mmol/L Hemoglobin (11.4-16.0) gm/dL Sodium (137-145) mmol/L Glucose 128 H (74-99) mg/dL POC Glucose (mg/dL) 144 H (75-99) mg/dL Calcium 7.9 L (8.4-10.2) mg/dL AST 46 H (14-36) U/L Alkaline Phosphatase 30 L (38-126) U/L Total Protein 4.9 L (6.3-8.2) g/dL Albumin 3.1 L (3.5-5.0) g/dL Arterial Blood Potassium (3.4-4.5) mmol/L Arterial Blood Glucose (75-99) mg/dL Crossmatch 12/03/18 12/03/18 12/03/18 Range/Units 05:12 06:35 08:12 WBC (3.8-10.6) k/uL RBC (3.80-5.40) m/uL Hgb (11.4-16.0) gm/dL Hct (34.0-46.0) % Neutrophils # (1.3-7.7) k/uL Lymphocytes # (1.0-4.8) k/uL PT (9.0-12.0) sec INR (<1.2) APTT (22.0-30.0) sec ABG pH (7.35-7.45) ABG pCO2 (35-45) mmHg ABG pO2 (83-108) mmHg ABG Total CO2 (19-24) mmol/L ABG O2 Saturation (94-97) % ABG Hematocrit (34.0-46.0) % ABG Sodium (135-146) mmol/L ABG Potassium (3.4-4.5) mmol/L ABG Ionized Calcium (4.5-5.3) mg/dL ABG Glucose (75-99) mg/dL ABG Lactic Acid (0.5-1.6) mmol/L Hemoglobin (11.4-16.0) gm/dL Sodium (137-145) mmol/L Glucose (74-99) mg/dL POC Glucose (mg/dL) 133 H 130 H 119 H (75-99) mg/dL Calcium (8.4-10.2) mg/dL AST (14-36) U/L Alkaline Phosphatase (38-126) U/L Total Protein (6.3-8.2) g/dL Albumin (3.5-5.0) g/dL Arterial Blood Potassium (3.4-4.5) mmol/L Arterial Blood Glucose (75-99) mg/dL Crossmatch 12/03/18 12/03/18 Range/Units 10:13 11:14 WBC (3.8-10.6) k/uL RBC (3.80-5.40) m/uL Hgb (11.4-16.0) gm/dL Hct (34.0-46.0) % Neutrophils # (1.3-7.7) k/uL Lymphocytes # (1.0-4.8) k/uL PT (9.0-12.0) sec INR (<1.2) APTT (22.0-30.0) sec ABG pH (7.35-7.45) ABG pCO2 (35-45) mmHg ABG pO2 (83-108) mmHg ABG Total CO2 (19-24) mmol/L ABG O2 Saturation (94-97) % ABG Hematocrit (34.0-46.0) % ABG Sodium (135-146) mmol/L ABG Potassium (3.4-4.5) mmol/L ABG Ionized Calcium (4.5-5.3) mg/dL ABG Glucose (75-99) mg/dL ABG Lactic Acid (0.5-1.6) mmol/L Hemoglobin (11.4-16.0) gm/dL Sodium (137-145) mmol/L Glucose (74-99) mg/dL POC Glucose (mg/dL) 153 H 169 H (75-99) mg/dL Calcium (8.4-10.2) mg/dL AST (14-36) U/L Alkaline Phosphatase (38-126) U/L Total Protein (6.3-8.2) g/dL Albumin (3.5-5.0) g/dL Arterial Blood Potassium (3.4-4.5) mmol/L Arterial Blood Glucose (75-99) mg/dL Crossmatch Assessment and Plan Assessment: impression: 1 status post myocardial revascularization for multiple vessel coronary artery disease. patient had HURT to LAD, saphenous vein graft to obtuse marginal artery and saphenous vein graft to distal right coronary artery.postoperative day #1, patient was extubated last night uneventfully. 2 multivessel coronary artery disease as noted on her recent cardiac catheterization. 3 benign essential hypertension 4 type 2 diabetes. 5 peripheral vessel occlusive disease involving lower extremities. Infrarenal aorta, right and left common iliac arteries and previous stents placement. 6 postoperative anemia secondary to blood loss, and that is expected, patient will be transfused with 1 unit of packed RBCs today. 6 history of hypothyroidism, osteoarthritis, hyperlipidemia, nicotine dependence presently in remission,recent episodes of syncope. Recommendation: continue incentive spirometry, transfuse patient with 1 unit of packed RBCs, continue incentive spirometry, continue bronchodilators, ambulate early and as soon as possible, continue GI and DVT prophylaxis, continue cardiac meds including statins, beta blockers, MEL inhibitor's,aspirin,Plavix. patient will remain in the ICU today, not quite ready for any transfer plans at this point.we'll continue to follow closely while in the ICU Time with Patient: Less than 30
[2018-12-03] MEDS: ONDANSETRON 4 MG/2 ML VIAL IVP PRN (12:22)
[2018-12-03 12:37] LABS: Glucose,Whole Blood 152 mg/dL (75-99)
--- NOTE | 2018-12-03 12:39 | P.PN ---
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, non- STEMI, history of syncopal episodes, history of known coronary artery disease and myocardial infarction with stenting to her right coronary artery, uncontrolled diabetes mellitus with hemoglobin A1c preoperatively of 8.1%, hypertension, hyperlipidemia, previous tobacco dependence with a preoperative FEV1 of 81% of predicted value, peripheral arterial disease with history of bilateral lower extremity stent placement, infrarenal aortic stent and failed attempt of aortofemoral bypass, hypothyroidism, osteoarthritis, obesity, family history of coronary artery disease and history of preoperative urinary tract infection with a positive urine culture showing Klebsiella pneumoniae. POD #1 coronary artery bypass grafting 3 vessels with left internal mammary artery to the left anterior descending coronary artery, a reverse greater saphenous vein graft to the obtuse marginal coronary artery, and a reverse greater saphenous vein graft to the distal right coronary artery. Endoscopic vein harvest, left greater saphenous vein. Intraoperative epi-aortic ultrasound and transesophageal echocardiogram. The patient is sitting up to the bedside chair. She is in no acute distress. He currently denies any complaints of pain or shortness of breath. Currently she is hemodynamically stable and on no inotropic or pressor support. Her hemoglobin this morning was 6.6 and currently has a unit of packed red blood cells infusing. She is achieving 750 mL to 1000 mL on her incentive spirometry with much encouragement. Her urine output has been marginal. Objective - Vital Signs Vital signs: Vital Signs Temp 98.4 F 12/03/18 08:30 Pulse 82 12/03/18 08:50 Resp 14 12/03/18 08:50 BP 114/41 12/03/18 06:15 Pulse Ox 98 12/03/18 08:50 Intake & Output 12/02/18 12/03/18 12/03/18 18:59 06:59 18:59 Intake Total 953.871 9954.624 1444.427 Output Total 2455 870 287 Balance -1466.254 292.841 8167.427 Weight 92.8 kg Intake: IV 982 1554 585 ACETAMINOPHEN IV (For NPO 100 100 ) 1,000 mg In Empty Bag 1 bag @ 400 mls/hr IVPB Q6HR [facility] Rx#:[id number] Albumin Human 5% 250 ml 500 500 250 In Empty Bag 1 bag @ 250 mls/hr IVPB Q1HR PRN Rx#: [id number] CO/CI 100 320 70 Lactated Ringers 1,000 ml 250 500 210 @ 20 mls/hr IV .Q24H [facility] Rx#:[id number] Nitroglycerin-D5w Pmx 50 35 10 mg In Dextrose/Water 1 250ml.bag @ 5 MCG/MIN 1.5 mls/hr IV .Q24H [facility] Rx#: [id number] pressure bag 99 45 Intake, IV Titration 6.746 46.624 239.427 Amount Clevidipine Butyrate 25 4.667 5.6 mg In Empty Bag 1 bag @ 1 MG/HR 2 mls/hr IV .Q24H [facility] Rx#:[id number] Insulin Regular 100 unit 2.079 41.024 9.427 In Sodium Chloride 0.9% 100 ml @ Per Protocol IV .Q0M [facility] Rx#:[id number] Magnesium Sulfate-D5w Pmx 200 1 gm In Dextrose/Water 1 100ml.bag @ 100 mls/hr IVPB Q1H [facility] Rx#: [id number] ceFAZolin 2,000 mg In 30 Sodium Chloride 0.9% 30 ml @ Per Protocol IVPB ONCE ONE Rx#:[id number] Blood Product 0 620 Rc Pheresis As-3 Unit 0 310 [id number] Output: Chest Tube Drainage 90 275 160 Bilateral Mediastinal 60 147 80 Left Pleural 30 128 80 Urine 1565 595 127 Estimated Blood Loss 800 Other: Voiding Method Indwelling Catheter Indwelling Catheter Indwelling Catheter ABP, PAP, CO, CI - Last Documented Arterial Blood Pressure 116/41 Pulmonary Artery Pressure 19/7 Cardiac Output 3.8 Cardiac Index 2.6 - Constitutional General appearance: Present: cooperative, no acute distress, obese - Respiratory Details: Lung sounds are essentially clear throughout, diminished bilateral bases. Respirations are symmetrical and nonlabored. Oxygen saturation are 98% on 2 L nasal cannula. She is achieving 750-1000 mL on her incentive spirometry. Mediastinal and left pleural chest tubes are to continuous low wall suction. No air leak is present. Her chest tubes are draining thin serosanguineous drainage. Mediastinal chest tubes drained 370 mL output since surgery, 90 mL in the last 8 hours. Left pleural chest tube drained 210 mL output since surgery, 140 mL output in the last 8 hours. - Cardiovascular Details: Regular rhythm and rate. S1 and S2 present, negative for S3, gallop or murmur. Sternum is stable. Bedside telemetry showing normal sinus rhythm heart rate 92. Right IJ Cordis with [place] catheter in place. Current cardiac output 3.9, cardiac index 2.2, PA pressures 17/70, CVP is 4. Atrial and ventricular epicardial pacemaker wires were in place and connected to back up bedside pacemaker generator with a VVI mode at 50. Trace edema to her bilateral lower extremities. Left radial arterial line in place and functioning. Heart hugger is in place and she is demonstrating appropriate use. Knee-high FRANCA hose and sequential compression devices in place were bilateral lower extremities. - Gastrointestinal Gastrointestinal Comment(s): Abdomen is soft, nontender and nondistended. Hypoactive bowel sounds present in all 4 abdominal quadrants. Tolerating clear liquid diet. Passing flatus. - Genitourinary Genitourinary Comment(s): Yang catheter for accurate I&O. Draining clear yellow urine. 290 mL output in the last 8 hours. - Integumentary Integumentary Comment(s): Skin is warm and dry. No clubbing or cyanosis present. Midline sternal incision is clean, dry and approximated. No drainage or redness is present. Gauze dressing is clean, dry and intact. Left lower extremity EVH site clean, dry and approximated. No drainage or redness is present. Scattered ecchymotic areas which are nontender and soft to palpate to her left lower extremity. - Neurologic Neurologic: Present: CNII-XII intact - Musculoskeletal Musculoskeletal: Present: gait normal, generalized weakness, strength equal bilaterally - Psychiatric Psychiatric: Present: A&O x's 3 - Allied health notes Allied health notes reviewed: nursing - Labs CBC & Chem 7: 12/03/18 04:05 12/03/18 04:05 Labs: Abnormal Lab Results - Last 24 Hours (Table) 11/28/18 12/02/18 12/02/18 Range/Units 14:43 08:42 08:45 WBC (3.8-10.6) k/uL RBC (3.80-5.40) m/uL Hgb (11.4-16.0) gm/dL Hct (34.0-46.0) % Neutrophils # (1.3-7.7) k/uL Lymphocytes # (1.0-4.8) k/uL PT (9.0-12.0) sec INR (<1.2) APTT (22.0-30.0) sec ABG pH (7.35-7.45) ABG pCO2 (35-45) mmHg ABG pO2 133 H (83-108) mmHg ABG Total CO2 26 H 26 H (19-24) mmol/L ABG O2 Saturation 99.7 H 98.6 H (94-97) % ABG Hematocrit 15 L* 29 L (34.0-46.0) % ABG Sodium (135-146) mmol/L ABG Potassium (3.4-4.5) mmol/L ABG Ionized Calcium (4.5-5.3) mg/dL ABG Glucose 132 H 127 H (75-99) mg/dL ABG Lactic Acid 2.6 H* 1.8 H (0.5-1.6) mmol/L Hemoglobin 5.0 L* 9.4 L (11.4-16.0) gm/dL Sodium (137-145) mmol/L Glucose (74-99) mg/dL POC Glucose (mg/dL) (75-99) mg/dL Calcium (8.4-10.2) mg/dL AST (14-36) U/L Alkaline Phosphatase (38-126) U/L Total Protein (6.3-8.2) g/dL Albumin (3.5-5.0) g/dL Arterial Blood Potassium (3.4-4.5) mmol/L Arterial Blood Glucose 132 H 127 H (75-99) mg/dL Crossmatch See Detail 12/02/18 12/02/18 12/02/18 Range/Units 09:34 10:53 11:22 WBC (3.8-10.6) k/uL RBC (3.80-5.40) m/uL Hgb (11.4-16.0) gm/dL Hct (34.0-46.0) % Neutrophils # (1.3-7.7) k/uL Lymphocytes # (1.0-4.8) k/uL PT (9.0-12.0) sec INR (<1.2) APTT (22.0-30.0) sec ABG pH 7.46 H 7.52 H (7.35-7.45) ABG pCO2 29 L (35-45) mmHg ABG pO2 119 H >420 H >420 H (83-108) mmHg ABG Total CO2 26 H 25 H 25 H (19-24) mmol/L ABG O2 Saturation 99.1 H 100.0 H 100.0 H (94-97) % ABG Hematocrit 29 L 19 L* 20 L* (34.0-46.0) % ABG Sodium 129 L 133 L (135-146) mmol/L ABG Potassium 6.0 H 4.7 H (3.4-4.5) mmol/L ABG Ionized Calcium 3.9 L 4.2 L (4.5-5.3) mg/dL ABG Glucose 167 H 314 H 275 H (75-99) mg/dL ABG Lactic Acid 1.7 H (0.5-1.6) mmol/L Hemoglobin 9.4 L 6.2 L* 6.5 L* (11.4-16.0) gm/dL Sodium (137-145) mmol/L Glucose (74-99) mg/dL POC Glucose (mg/dL) (75-99) mg/dL Calcium (8.4-10.2) mg/dL AST (14-36) U/L Alkaline Phosphatase (38-126) U/L Total Protein (6.3-8.2) g/dL Albumin (3.5-5.0) g/dL Arterial Blood Potassium 6.0 H 4.7 H (3.4-4.5) mmol/L Arterial Blood Glucose 167 H 314 H 275 H (75-99) mg/dL Crossmatch 12/02/18 12/02/18 12/02/18 Range/Units 12:11 13:32 14:39 WBC (3.8-10.6) k/uL RBC (3.80-5.40) m/uL Hgb (11.4-16.0) gm/dL Hct (34.0-46.0) % Neutrophils # (1.3-7.7) k/uL Lymphocytes # (1.0-4.8) k/uL PT (9.0-12.0) sec INR (<1.2) APTT (22.0-30.0) sec ABG pH 7.33 L (7.35-7.45) ABG pCO2 46 H (35-45) mmHg ABG pO2 >420 H 38 L* (83-108) mmHg ABG Total CO2 25 H 26 H (19-24) mmol/L ABG O2 Saturation 100.0 H 67.2 L (94-97) % ABG Hematocrit 21 L 22 L (34.0-46.0) % ABG Sodium 134 L (135-146) mmol/L ABG Potassium (3.4-4.5) mmol/L ABG Ionized Calcium 4.2 L (4.5-5.3) mg/dL ABG Glucose 244 H 161 H (75-99) mg/dL ABG Lactic Acid 1.8 H 2.5 H* (0.5-1.6) mmol/L Hemoglobin 6.8 L* 7.3 L (11.4-16.0) gm/dL Sodium (137-145) mmol/L Glucose (74-99) mg/dL POC Glucose (mg/dL) 121 H (75-99) mg/dL Calcium (8.4-10.2) mg/dL AST (14-36) U/L Alkaline Phosphatase (38-126) U/L Total Protein (6.3-8.2) g/dL Albumin (3.5-5.0) g/dL Arterial Blood Potassium (3.4-4.5) mmol/L Arterial Blood Glucose 244 H 161 H (75-99) mg/dL Crossmatch 12/02/18 12/02/18 12/02/18 Range/Units 14:40 14:40 14:40 WBC 10.8 H (3.8-10.6) k/uL RBC 2.52 L (3.80-5.40) m/uL Hgb 7.3 L D (11.4-16.0) gm/dL Hct 21.7 L (34.0-46.0) % Neutrophils # 9.3 H (1.3-7.7) k/uL Lymphocytes # (1.0-4.8) k/uL PT 12.5 H (9.0-12.0) sec INR 1.2 H (<1.2) APTT (22.0-30.0) sec ABG pH (7.35-7.45) ABG pCO2 (35-45) mmHg ABG pO2 (83-108) mmHg ABG Total CO2 (19-24) mmol/L ABG O2 Saturation (94-97) % ABG Hematocrit (34.0-46.0) % ABG Sodium (135-146) mmol/L ABG Potassium (3.4-4.5) mmol/L ABG Ionized Calcium (4.5-5.3) mg/dL ABG Glucose (75-99) mg/dL ABG Lactic Acid (0.5-1.6) mmol/L Hemoglobin (11.4-16.0) gm/dL Sodium 136 L (137-145) mmol/L Glucose 103 H (74-99) mg/dL POC Glucose (mg/dL) (75-99) mg/dL Calcium 8.1 L (8.4-10.2) mg/dL AST 43 H (14-36) U/L Alkaline Phosphatase (38-126) U/L Total Protein 4.5 L (6.3-8.2) g/dL Albumin 2.5 L (3.5-5.0) g/dL Arterial Blood Potassium (3.4-4.5) mmol/L Arterial Blood Glucose (75-99) mg/dL Crossmatch 12/02/18 12/02/18 12/02/18 Range/Units 15:19 16:07 17:11 WBC (3.8-10.6) k/uL RBC (3.80-5.40) m/uL Hgb (11.4-16.0) gm/dL Hct (34.0-46.0) % Neutrophils # (1.3-7.7) k/uL Lymphocytes # (1.0-4.8) k/uL PT (9.0-12.0) sec INR (<1.2) APTT (22.0-30.0) sec ABG pH (7.35-7.45) ABG pCO2 (35-45) mmHg ABG pO2 >400 H (83-108) mmHg ABG Total CO2 25 H (19-24) mmol/L ABG O2 Saturation >102.0 H (94-97) % ABG Hematocrit (34.0-46.0) % ABG Sodium (135-146) mmol/L ABG Potassium (3.4-4.5) mmol/L ABG Ionized Calcium (4.5-5.3) mg/dL ABG Glucose (75-99) mg/dL ABG Lactic Acid (0.5-1.6) mmol/L Hemoglobin (11.4-16.0) gm/dL Sodium (137-145) mmol/L Glucose (74-99) mg/dL POC Glucose (mg/dL) 105 H 168 H (75-99) mg/dL Calcium (8.4-10.2) mg/dL AST (14-36) U/L Alkaline Phosphatase (38-126) U/L Total Protein (6.3-8.2) g/dL Albumin (3.5-5.0) g/dL Arterial Blood Potassium (3.4-4.5) mmol/L Arterial Blood Glucose (75-99) mg/dL Crossmatch 12/02/18 12/02/18 12/02/18 Range/Units 17:40 17:40 17:40 WBC 13.0 H (3.8-10.6) k/uL RBC 2.61 L (3.80-5.40) m/uL Hgb 7.6 L (11.4-16.0) gm/dL Hct 22.7 L (34.0-46.0) % Neutrophils # 10.5 H (1.3-7.7) k/uL Lymphocytes # (1.0-4.8) k/uL PT (9.0-12.0) sec INR 1.2 H (<1.2) APTT 58.0 H (22.0-30.0) sec ABG pH (7.35-7.45) ABG pCO2 (35-45) mmHg ABG pO2 (83-108) mmHg ABG Total CO2 (19-24) mmol/L ABG O2 Saturation (94-97) % ABG Hematocrit (34.0-46.0) % ABG Sodium (135-146) mmol/L ABG Potassium (3.4-4.5) mmol/L ABG Ionized Calcium (4.5-5.3) mg/dL ABG Glucose (75-99) mg/dL ABG Lactic Acid (0.5-1.6) mmol/L Hemoglobin (11.4-16.0) gm/dL Sodium 135 L (137-145) mmol/L Glucose 188 H (74-99) mg/dL POC Glucose (mg/dL) (75-99) mg/dL Calcium 8.3 L (8.4-10.2) mg/dL AST 59 H (14-36) U/L Alkaline Phosphatase 37 L (38-126) U/L Total Protein 5.0 L (6.3-8.2) g/dL Albumin 3.2 L (3.5-5.0) g/dL Arterial Blood Potassium (3.4-4.5) mmol/L Arterial Blood Glucose (75-99) mg/dL Crossmatch 12/02/18 12/02/18 12/02/18 Range/Units 18:03 18:09 19:01 WBC (3.8-10.6) k/uL RBC (3.80-5.40) m/uL Hgb (11.4-16.0) gm/dL Hct (34.0-46.0) % Neutrophils # (1.3-7.7) k/uL Lymphocytes # (1.0-4.8) k/uL PT (9.0-12.0) sec INR (<1.2) APTT (22.0-30.0) sec ABG pH 7.31 L (7.35-7.45) ABG pCO2 (35-45) mmHg ABG pO2 (83-108) mmHg ABG Total CO2 (19-24) mmol/L ABG O2 Saturation 98.1 H (94-97) % ABG Hematocrit (34.0-46.0) % ABG Sodium (135-146) mmol/L ABG Potassium (3.4-4.5) mmol/L ABG Ionized Calcium (4.5-5.3) mg/dL ABG Glucose (75-99) mg/dL ABG Lactic Acid (0.5-1.6) mmol/L Hemoglobin (11.4-16.0) gm/dL Sodium (137-145) mmol/L Glucose (74-99) mg/dL POC Glucose (mg/dL) 227 H 211 H (75-99) mg/dL Calcium (8.4-10.2) mg/dL AST (14-36) U/L Alkaline Phosphatase (38-126) U/L Total Protein (6.3-8.2) g/dL Albumin (3.5-5.0) g/dL Arterial Blood Potassium (3.4-4.5) mmol/L Arterial Blood Glucose (75-99) mg/dL Crossmatch 12/02/18 12/02/18 12/02/18 Range/Units 20:06 20:55 20:58 WBC 10.7 H (3.8-10.6) k/uL RBC 2.57 L (3.80-5.40) m/uL Hgb 7.4 L (11.4-16.0) gm/dL Hct 22.1 L (34.0-46.0) % Neutrophils # 9.5 H (1.3-7.7) k/uL Lymphocytes # 0.7 L (1.0-4.8) k/uL PT (9.0-12.0) sec INR (<1.2) APTT (22.0-30.0) sec ABG pH (7.35-7.45) ABG pCO2 (35-45) mmHg ABG pO2 (83-108) mmHg ABG Total CO2 (19-24) mmol/L ABG O2 Saturation (94-97) % ABG Hematocrit (34.0-46.0) % ABG Sodium (135-146) mmol/L ABG Potassium (3.4-4.5) mmol/L ABG Ionized Calcium (4.5-5.3) mg/dL ABG Glucose (75-99) mg/dL ABG Lactic Acid (0.5-1.6) mmol/L Hemoglobin (11.4-16.0) gm/dL Sodium (137-145) mmol/L Glucose (74-99) mg/dL POC Glucose (mg/dL) 185 H 175 H (75-99) mg/dL Calcium (8.4-10.2) mg/dL AST (14-36) U/L Alkaline Phosphatase (38-126) U/L Total Protein (6.3-8.2) g/dL Albumin (3.5-5.0) g/dL Arterial Blood Potassium (3.4-4.5) mmol/L Arterial Blood Glucose (75-99) mg/dL Crossmatch 12/02/18 12/02/18 12/03/18 Range/Units 22:00 23:14 00:00 WBC (3.8-10.6) k/uL RBC (3.80-5.40) m/uL Hgb (11.4-16.0) gm/dL Hct (34.0-46.0) % Neutrophils # (1.3-7.7) k/uL Lymphocytes # (1.0-4.8) k/uL PT (9.0-12.0) sec INR (<1.2) APTT (22.0-30.0) sec ABG pH (7.35-7.45) ABG pCO2 (35-45) mmHg ABG pO2 (83-108) mmHg ABG Total CO2 (19-24) mmol/L ABG O2 Saturation (94-97) % ABG Hematocrit (34.0-46.0) % ABG Sodium (135-146) mmol/L ABG Potassium (3.4-4.5) mmol/L ABG Ionized Calcium (4.5-5.3) mg/dL ABG Glucose (75-99) mg/dL ABG Lactic Acid (0.5-1.6) mmol/L Hemoglobin (11.4-16.0) gm/dL Sodium (137-145) mmol/L Glucose (74-99) mg/dL POC Glucose (mg/dL) 143 H 123 H 114 H (75-99) mg/dL Calcium (8.4-10.2) mg/dL AST (14-36) U/L Alkaline Phosphatase (38-126) U/L Total Protein (6.3-8.2) g/dL Albumin (3.5-5.0) g/dL Arterial Blood Potassium (3.4-4.5) mmol/L Arterial Blood Glucose (75-99) mg/dL Crossmatch 12/03/18 12/03/18 12/03/18 Range/Units 01:10 02:08 03:04 WBC (3.8-10.6) k/uL RBC (3.80-5.40) m/uL Hgb (11.4-16.0) gm/dL Hct (34.0-46.0) % Neutrophils # (1.3-7.7) k/uL Lymphocytes # (1.0-4.8) k/uL PT (9.0-12.0) sec INR (<1.2) APTT (22.0-30.0) sec ABG pH (7.35-7.45) ABG pCO2 (35-45) mmHg ABG pO2 (83-108) mmHg ABG Total CO2 (19-24) mmol/L ABG O2 Saturation (94-97) % ABG Hematocrit (34.0-46.0) % ABG Sodium (135-146) mmol/L ABG Potassium (3.4-4.5) mmol/L ABG Ionized Calcium (4.5-5.3) mg/dL ABG Glucose (75-99) mg/dL ABG Lactic Acid (0.5-1.6) mmol/L Hemoglobin (11.4-16.0) gm/dL Sodium (137-145) mmol/L Glucose (74-99) mg/dL POC Glucose (mg/dL) 106 H 145 H 156 H (75-99) mg/dL Calcium (8.4-10.2) mg/dL AST (14-36) U/L Alkaline Phosphatase (38-126) U/L Total Protein (6.3-8.2) g/dL Albumin (3.5-5.0) g/dL Arterial Blood Potassium (3.4-4.5) mmol/L Arterial Blood Glucose (75-99) mg/dL Crossmatch 12/03/18 12/03/18 12/03/18 Range/Units 04:05 04:05 04:10 WBC (3.8-10.6) k/uL RBC 2.30 L (3.80-5.40) m/uL Hgb 6.6 L* (11.4-16.0) gm/dL Hct 20.2 L (34.0-46.0) % Neutrophils # (1.3-7.7) k/uL Lymphocytes # (1.0-4.8) k/uL PT (9.0-12.0) sec INR (<1.2) APTT (22.0-30.0) sec ABG pH (7.35-7.45) ABG pCO2 (35-45) mmHg ABG pO2 (83-108) mmHg ABG Total CO2 (19-24) mmol/L ABG O2 Saturation (94-97) % ABG Hematocrit (34.0-46.0) % ABG Sodium (135-146) mmol/L ABG Potassium (3.4-4.5) mmol/L ABG Ionized Calcium (4.5-5.3) mg/dL ABG Glucose (75-99) mg/dL ABG Lactic Acid (0.5-1.6) mmol/L Hemoglobin (11.4-16.0) gm/dL Sodium (137-145) mmol/L Glucose 128 H (74-99) mg/dL POC Glucose (mg/dL) 144 H (75-99) mg/dL Calcium 7.9 L (8.4-10.2) mg/dL AST 46 H (14-36) U/L Alkaline Phosphatase 30 L (38-126) U/L Total Protein 4.9 L (6.3-8.2) g/dL Albumin 3.1 L (3.5-5.0) g/dL Arterial Blood Potassium (3.4-4.5) mmol/L Arterial Blood Glucose (75-99) mg/dL Crossmatch 12/03/18 12/03/18 12/03/18 Range/Units 05:12 06:35 08:12 WBC (3.8-10.6) k/uL RBC (3.80-5.40) m/uL Hgb (11.4-16.0) gm/dL Hct (34.0-46.0) % Neutrophils # (1.3-7.7) k/uL Lymphocytes # (1.0-4.8) k/uL PT (9.0-12.0) sec INR (<1.2) APTT (22.0-30.0) sec ABG pH (7.35-7.45) ABG pCO2 (35-45) mmHg ABG pO2 (83-108) mmHg ABG Total CO2 (19-24) mmol/L ABG O2 Saturation (94-97) % ABG Hematocrit (34.0-46.0) % ABG Sodium (135-146) mmol/L ABG Potassium (3.4-4.5) mmol/L ABG Ionized Calcium (4.5-5.3) mg/dL ABG Glucose (75-99) mg/dL ABG Lactic Acid (0.5-1.6) mmol/L Hemoglobin (11.4-16.0) gm/dL Sodium (137-145) mmol/L Glucose (74-99) mg/dL POC Glucose (mg/dL) 133 H 130 H 119 H (75-99) mg/dL Calcium (8.4-10.2) mg/dL AST (14-36) U/L Alkaline Phosphatase (38-126) U/L Total Protein (6.3-8.2) g/dL Albumin (3.5-5.0) g/dL Arterial Blood Potassium (3.4-4.5) mmol/L Arterial Blood Glucose (75-99) mg/dL Crossmatch 12/03/18 12/03/18 Range/Units 10:13 11:14 WBC (3.8-10.6) k/uL RBC (3.80-5.40) m/uL Hgb (11.4-16.0) gm/dL Hct (34.0-46.0) % Neutrophils # (1.3-7.7) k/uL Lymphocytes # (1.0-4.8) k/uL PT (9.0-12.0) sec INR (<1.2) APTT (22.0-30.0) sec ABG pH (7.35-7.45) ABG pCO2 (35-45) mmHg ABG pO2 (83-108) mmHg ABG Total CO2 (19-24) mmol/L ABG O2 Saturation (94-97) % ABG Hematocrit (34.0-46.0) % ABG Sodium (135-146) mmol/L ABG Potassium (3.4-4.5) mmol/L ABG Ionized Calcium (4.5-5.3) mg/dL ABG Glucose (75-99) mg/dL ABG Lactic Acid (0.5-1.6) mmol/L Hemoglobin (11.4-16.0) gm/dL Sodium (137-145) mmol/L Glucose (74-99) mg/dL POC Glucose (mg/dL) 153 H 169 H (75-99) mg/dL Calcium (8.4-10.2) mg/dL AST (14-36) U/L Alkaline Phosphatase (38-126) U/L Total Protein (6.3-8.2) g/dL Albumin (3.5-5.0) g/dL Arterial Blood Potassium (3.4-4.5) mmol/L Arterial Blood Glucose (75-99) mg/dL Crossmatch - Imaging and Cardiology Chest x-ray: report reviewed, image reviewed Assessment and Plan Assessment: 1. 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 2. History of recent non-STEMI. 3. Recent syncopal episodes. 4. History of known coronary artery disease and myocardial infarction with stenting to the right coronary artery. 5. Hypertension. 6. Hyperlipidemia. 7. Uncontrolled diabetes with preoperative hemoglobin A1c of 8.1%. 8. Peripheral arterial disease with previous bilateral lower extremity stent placement, infrarenal aortic stent and failed attempt at aortofemoral bypass. 9. Obesity 10. Family history of coronary artery disease 11. Osteoarthritis 12. Previous tobacco dependence with preoperative FEV1 of 81% of predicted value. Plan: 1. Continue aspirin, statin, Plavix, and beta dante. Will increase metoprolol tartrate 25 mg by mouth twice a day. 2. Discontinue IV nitro. 3. Increase activity as tolerated. PT/OT and cardiac rehab following. 4. Wean oxygen as tolerated, encourage incentive spirometry use 10 times every hour while awake. 5. Bronchodilators per pulmonology. 6. Dopamine at 2 mcg/kg/m do not titrate. 7. Will monitor daily labs and x-rays. Electrolyte replacement per protocol. 8. Pain control with current medication regimen. We will add Toradol. 9. Insulin management per primary care service. 10. GI prophylaxis with Protonix, DVT prophylaxis with subcu heparin and SCDs. 11. Will keep chest tubes, Cordis, [place] catheter, arterial line, Yang catheter for another 24 hours. 12. We will restart her Synthroid 125 g by mouth daily. 13. More recommendations to follow based on patient's clinical course. Time with Patient: Greater than 30
[2018-12-03] MEDS: KETOROLAC 30 MG/ML 1 ML VIAL IVP SCH ×3 (12:55→23:41)
[2018-12-03] MEDS: LEVOTHYROXINE 125 MCG TAB PO SCH ×2 (12:58→16:50)
[2018-12-03] MEDS: LACTATED RINGERS 1,000 ML IV SCH (12:59)
[2018-12-03] MEDS ORDERED: HYDROcodone/APAP 5-325MG 1 EACH TAB PO PRN (13:17)
[2018-12-03] MEDS ORDERED: BISACODYL 10 MG SUPP RECTAL PRN (13:18)
[2018-12-03] MEDS ORDERED: MAGNESIUM HYDROXIDE 2,400 MG/10 ML CUP PO PRN (13:19)
[2018-12-03 13:21] LABS: Glucose,Whole Blood 148 mg/dL (75-99)
[2018-12-03 13:34] LABS: HCT 23.6 % (34.0-46.0); MCH 29.5 pg (25.0-35.0); MCHC 33.8 g/dL (31.0-37.0); MCV 87.1 fL (80.0-100.0); Mean Platelet Volume 6.6; Platelet Count 157 k/uL (150-450); RBC 2.71 m/uL (3.80-5.40); RDW 14.9 % (11.5-15.5); WBC 7.7 k/uL (3.8-10.6)
[2018-12-03 14:23] VITALS: BMI 37.4
[2018-12-03 14:35] LABS: Glucose,Whole Blood 139 mg/dL (75-99)
[2018-12-03 16:00] LABS: Glucose,Whole Blood 158 mg/dL (75-99)
[2018-12-03 17:14] LABS: Glucose,Whole Blood 170 mg/dL (75-99)
--- NOTE | 2018-12-03 17:40 | P.PN ---
Subjective Progress Note Date: 12/03/18 12/03/2018: Patient is extubated and sitting in the chair. She claims she is feeling better. Patient's hemoglobin is 6.6 today. She is going to get 1 unit of blood transfusion. No arrhythmias noted. Chest x-ray shows postoperative changes. Overall, patient symptomatically stable. We'll continue current medical therapy. Left pelvis are reviewed Objective - Vital Signs Vital signs: Vital Signs Temp 98 F 12/03/18 12:00 Pulse 92 12/03/18 16:00 Resp 19 12/03/18 16:00 BP 124/67 12/03/18 16:00 Pulse Ox 95 12/03/18 16:00 Intake & Output 12/02/18 12/03/18 12/03/18 18:59 06:59 18:59 Intake Total 096.405 3490.624 2156.100 Output Total 2455 870 837 Balance -1466.254 341.635 1133.100 Weight 92.8 kg 92.8 kg Intake: IV 982 1554 1160 ACETAMINOPHEN IV (For NPO 100 100 100 ) 1,000 mg In Empty Bag 1 bag @ 400 mls/hr IVPB Q6HR [facility] Rx#:[id number] Albumin Human 5% 250 ml 500 500 500 In Empty Bag 1 bag @ 250 mls/hr IVPB Q1HR PRN Rx#: [id number] CO/CI 100 320 100 Lactated Ringers 1,000 ml 250 500 360 @ 20 mls/hr IV .Q24H [facility] Rx#:[id number] Nitroglycerin-D5w Pmx 50 35 10 mg In Dextrose/Water 1 250ml.bag @ 5 MCG/MIN 1.5 mls/hr IV .Q24H [facility] Rx#: [id number] pressure bag 99 90 Intake, IV Titration 6.746 46.624 276.100 Amount Clevidipine Butyrate 25 4.667 5.6 mg In Empty Bag 1 bag @ 1 MG/HR 2 mls/hr IV .Q24H [facility] Rx#:[id number] DOPamine DRIP 800 mg In 20.445 Dextrose/Water 1 250ml. bag @ 2 MCG/KG/MIN 3.48 mls/hr IV .Q24H [facility] Rx#: [id number] Insulin Regular 100 unit 2.079 41.024 25.655 In Sodium Chloride 0.9% 100 ml @ Per Protocol IV .Q0M [facility] Rx#:[id number] Magnesium Sulfate-D5w Pmx 200 1 gm In Dextrose/Water 1 100ml.bag @ 100 mls/hr IVPB Q1H [facility] Rx#: [id number] ceFAZolin 2,000 mg In 30 Sodium Chloride 0.9% 30 ml @ Per Protocol IVPB ONCE ONE Rx#:[id number] Oral 100 Blood Product 0 620 Rc Pheresis As-3 Unit 0 310 [id number] Output: Chest Tube Drainage 90 275 430 Bilateral Mediastinal 60 147 290 Left Pleural 30 128 140 Urine 1565 595 407 Estimated Blood Loss 800 Other: Voiding Method Indwelling Catheter Indwelling Catheter Indwelling Catheter ABP, PAP, CO, CI - Last Documented Arterial Blood Pressure 125/41 Pulmonary Artery Pressure 26/12 Cardiac Output 5.6 Cardiac Index 2.9 - Exam GENERAL EXAM: Patient is alert and oriented and doesn't appear to be in any acute distress HEENT: Normocephalic. Normal reaction of pupils, equal size, normal range of extraocular motion. No erythema or exudates in the throat. NECK: No masses, no nuchal rigidity. CHEST: Postsurgical LUNGS: Initially sounded bases, few rales HEART: mumurs or gallops. Regular rhythm, s.. ABDOMEN: Soft SKIN: No rashes CENTRAL NERVOUS SYSTEM: No focal deficits. EXTREMITIES: No cyanosis, clubbing or edema. - Labs CBC & Chem 7: 12/03/18 13:09 12/03/18 04:05 Labs: Abnormal Lab Results - Last 24 Hours (Table) 11/28/18 12/02/18 12/02/18 Range/Units 14:43 17:40 17:40 WBC (3.8-10.6) k/uL RBC (3.80-5.40) m/uL Hgb (11.4-16.0) gm/dL Hct (34.0-46.0) % Neutrophils # (1.3-7.7) k/uL Lymphocytes # (1.0-4.8) k/uL INR 1.2 H (<1.2) APTT 58.0 H (22.0-30.0) sec ABG pH (7.35-7.45) ABG O2 Saturation (94-97) % Sodium 135 L (137-145) mmol/L Glucose 188 H (74-99) mg/dL POC Glucose (mg/dL) (75-99) mg/dL Calcium 8.3 L (8.4-10.2) mg/dL AST 59 H (14-36) U/L Alkaline Phosphatase 37 L (38-126) U/L Total Protein 5.0 L (6.3-8.2) g/dL Albumin 3.2 L (3.5-5.0) g/dL Crossmatch See Detail 12/02/18 12/02/18 12/02/18 Range/Units 17:40 18:03 18:09 WBC 13.0 H (3.8-10.6) k/uL RBC 2.61 L (3.80-5.40) m/uL Hgb 7.6 L (11.4-16.0) gm/dL Hct 22.7 L (34.0-46.0) % Neutrophils # 10.5 H (1.3-7.7) k/uL Lymphocytes # (1.0-4.8) k/uL INR (<1.2) APTT (22.0-30.0) sec ABG pH 7.31 L (7.35-7.45) ABG O2 Saturation 98.1 H (94-97) % Sodium (137-145) mmol/L Glucose (74-99) mg/dL POC Glucose (mg/dL) 227 H (75-99) mg/dL Calcium (8.4-10.2) mg/dL AST (14-36) U/L Alkaline Phosphatase (38-126) U/L Total Protein (6.3-8.2) g/dL Albumin (3.5-5.0) g/dL Crossmatch 12/02/18 12/02/18 12/02/18 Range/Units 19:01 20:06 20:55 WBC (3.8-10.6) k/uL RBC (3.80-5.40) m/uL Hgb (11.4-16.0) gm/dL Hct (34.0-46.0) % Neutrophils # (1.3-7.7) k/uL Lymphocytes # (1.0-4.8) k/uL INR (<1.2) APTT (22.0-30.0) sec ABG pH (7.35-7.45) ABG O2 Saturation (94-97) % Sodium (137-145) mmol/L Glucose (74-99) mg/dL POC Glucose (mg/dL) 211 H 185 H 175 H (75-99) mg/dL Calcium (8.4-10.2) mg/dL AST (14-36) U/L Alkaline Phosphatase (38-126) U/L Total Protein (6.3-8.2) g/dL Albumin (3.5-5.0) g/dL Crossmatch 12/02/18 12/02/18 12/02/18 Range/Units 20:58 22:00 23:14 WBC 10.7 H (3.8-10.6) k/uL RBC 2.57 L (3.80-5.40) m/uL Hgb 7.4 L (11.4-16.0) gm/dL Hct 22.1 L (34.0-46.0) % Neutrophils # 9.5 H (1.3-7.7) k/uL Lymphocytes # 0.7 L (1.0-4.8) k/uL INR (<1.2) APTT (22.0-30.0) sec ABG pH (7.35-7.45) ABG O2 Saturation (94-97) % Sodium (137-145) mmol/L Glucose (74-99) mg/dL POC Glucose (mg/dL) 143 H 123 H (75-99) mg/dL Calcium (8.4-10.2) mg/dL AST (14-36) U/L Alkaline Phosphatase (38-126) U/L Total Protein (6.3-8.2) g/dL Albumin (3.5-5.0) g/dL Crossmatch 12/03/18 12/03/18 12/03/18 Range/Units 00:00 01:10 02:08 WBC (3.8-10.6) k/uL RBC (3.80-5.40) m/uL Hgb (11.4-16.0) gm/dL Hct (34.0-46.0) % Neutrophils # (1.3-7.7) k/uL Lymphocytes # (1.0-4.8) k/uL INR (<1.2) APTT (22.0-30.0) sec ABG pH (7.35-7.45) ABG O2 Saturation (94-97) % Sodium (137-145) mmol/L Glucose (74-99) mg/dL POC Glucose (mg/dL) 114 H 106 H 145 H (75-99) mg/dL Calcium (8.4-10.2) mg/dL AST (14-36) U/L Alkaline Phosphatase (38-126) U/L Total Protein (6.3-8.2) g/dL Albumin (3.5-5.0) g/dL Crossmatch 12/03/18 12/03/18 12/03/18 Range/Units 03:04 04:05 04:05 WBC (3.8-10.6) k/uL RBC 2.30 L (3.80-5.40) m/uL Hgb 6.6 L* (11.4-16.0) gm/dL Hct 20.2 L (34.0-46.0) % Neutrophils # (1.3-7.7) k/uL Lymphocytes # (1.0-4.8) k/uL INR (<1.2) APTT (22.0-30.0) sec ABG pH (7.35-7.45) ABG O2 Saturation (94-97) % Sodium (137-145) mmol/L Glucose 128 H (74-99) mg/dL POC Glucose (mg/dL) 156 H (75-99) mg/dL Calcium 7.9 L (8.4-10.2) mg/dL AST 46 H (14-36) U/L Alkaline Phosphatase 30 L (38-126) U/L Total Protein 4.9 L (6.3-8.2) g/dL Albumin 3.1 L (3.5-5.0) g/dL Crossmatch 12/03/18 12/03/18 12/03/18 Range/Units 04:10 05:12 06:35 WBC (3.8-10.6) k/uL RBC (3.80-5.40) m/uL Hgb (11.4-16.0) gm/dL Hct (34.0-46.0) % Neutrophils # (1.3-7.7) k/uL Lymphocytes # (1.0-4.8) k/uL INR (<1.2) APTT (22.0-30.0) sec ABG pH (7.35-7.45) ABG O2 Saturation (94-97) % Sodium (137-145) mmol/L Glucose (74-99) mg/dL POC Glucose (mg/dL) 144 H 133 H 130 H (75-99) mg/dL Calcium (8.4-10.2) mg/dL AST (14-36) U/L Alkaline Phosphatase (38-126) U/L Total Protein (6.3-8.2) g/dL Albumin (3.5-5.0) g/dL Crossmatch 12/03/18 12/03/18 12/03/18 Range/Units 08:12 10:13 11:14 WBC (3.8-10.6) k/uL RBC (3.80-5.40) m/uL Hgb (11.4-16.0) gm/dL Hct (34.0-46.0) % Neutrophils # (1.3-7.7) k/uL Lymphocytes # (1.0-4.8) k/uL INR (<1.2) APTT (22.0-30.0) sec ABG pH (7.35-7.45) ABG O2 Saturation (94-97) % Sodium (137-145) mmol/L Glucose (74-99) mg/dL POC Glucose (mg/dL) 119 H 153 H 169 H (75-99) mg/dL Calcium (8.4-10.2) mg/dL AST (14-36) U/L Alkaline Phosphatase (38-126) U/L Total Protein (6.3-8.2) g/dL Albumin (3.5-5.0) g/dL Crossmatch 12/03/18 12/03/18 12/03/18 Range/Units 12:25 13:09 13:09 WBC (3.8-10.6) k/uL RBC 2.71 L (3.80-5.40) m/uL Hgb 8.0 L (11.4-16.0) gm/dL Hct 23.6 L (34.0-46.0) % Neutrophils # (1.3-7.7) k/uL Lymphocytes # (1.0-4.8) k/uL INR (<1.2) APTT (22.0-30.0) sec ABG pH (7.35-7.45) ABG O2 Saturation (94-97) % Sodium (137-145) mmol/L Glucose (74-99) mg/dL POC Glucose (mg/dL) 152 H 148 H (75-99) mg/dL Calcium (8.4-10.2) mg/dL AST (14-36) U/L Alkaline Phosphatase (38-126) U/L Total Protein (6.3-8.2) g/dL Albumin (3.5-5.0) g/dL Crossmatch 12/03/18 12/03/18 12/03/18 Range/Units 14:22 15:47 17:02 WBC (3.8-10.6) k/uL RBC (3.80-5.40) m/uL Hgb (11.4-16.0) gm/dL Hct (34.0-46.0) % Neutrophils # (1.3-7.7) k/uL Lymphocytes # (1.0-4.8) k/uL INR (<1.2) APTT (22.0-30.0) sec ABG pH (7.35-7.45) ABG O2 Saturation (94-97) % Sodium (137-145) mmol/L Glucose (74-99) mg/dL POC Glucose (mg/dL) 139 H 158 H 170 H (75-99) mg/dL Calcium (8.4-10.2) mg/dL AST (14-36) U/L Alkaline Phosphatase (38-126) U/L Total Protein (6.3-8.2) g/dL Albumin (3.5-5.0) g/dL Crossmatch Assessment and Plan (1) Status post coronary artery bypass graft Current Visit: Yes Status: Acute Code(s): Z95.1 - PRESENCE OF AORTOCORONARY BYPASS GRAFT SNOMED Code(s): 568051508 (2) Diabetes mellitus Current Visit: No Status: Chronic Code(s): E11.9 - TYPE 2 DIABETES MELLITUS WITHOUT COMPLICATIONS SNOMED Code(s): 90065873 (3) Hyperlipidemia Current Visit: No Status: Chronic Code(s): E78.5 - HYPERLIPIDEMIA, UNSPECIFIED SNOMED Code(s): 94666500 (4) Hypertension Current Visit: No Status: Chronic Code(s): I10 - ESSENTIAL (PRIMARY) HYPERTENSION SNOMED Code(s): 74346561 Plan: Patient is status post bypass surgery. Postsurgical anemia. Increasing blood transfusion. Otherwise clinically stable. No arrhythmias. Increase activity as tolerated. Continue incentive spirometry
[2018-12-03 18:27] LABS: Glucose,Whole Blood 170 mg/dL (75-99)
[2018-12-03 19:05] LABS: Glucose,Whole Blood 157 mg/dL (75-99)
[2018-12-03] MEDS: SENNOSIDES-DOCUSATE SODIUM 1 EACH TAB PO SCH (20:11)
[2018-12-03 20:45] LABS: Glucose,Whole Blood 139 mg/dL (75-99)
--- NOTE | 2018-12-03 22:14 | PN ---
PROGRESS NOTE DATE OF SERVICE: 12/03/2018. PRESENTING COMPLAINT: Coronary bypass. INTERVAL HISTORY: Patient is status post coronary bypass. Did sit up on a chair today. Did tolerate some clear liquids. Urine output was low. Patient is put on renal dose of dopamine at 2.5. Patient also on insulin drip. Chest tubes are present. The patient is on 2 L nasal cannula. Pulse ox around 97 percent. Sinus rhythm. Awake, answering questions. REVIEW OF SYSTEMS: Done for constitutional, cardiovascular, GI, pulmonary; relevant findings as above. CURRENT MEDICATIONS: Reviewed, they include dopamine drip. PHYSICAL EXAMINATION: Temperature 97.9 pulse 90, respirations 12, blood pressure 103/48, pulse ox 95% on nasal cannula 2 L. GENERAL APPEARANCE: Propped up in bed, awake. EYES: Pupils equal. Conjunctivae normal. NECK: JVD unable to assess. Mass not palpable. Respiratory effort increased. LUNGS: Diminished breath sounds. CARDIOVASCULAR: Heart sounds muffled. Minimal edema. ABDOMEN: Soft, nontender. Liver and spleen not palpable. PSYCHIATRY: Alert and oriented. Mood and affect normal. INVESTIGATIONS: White count 7.7, hemoglobin 8. Accu-Cheks are noted. ASSESSMENT: 1. Coronary bypass x3. 2. Recent non-Q-wave myocardial infarction 2 weeks ago. 3. Diabetes mellitus type 2 on oral hypoglycemics. 4. Essential hypertension. 5. Hyperlipidemia. 6. Primary osteoarthritis. 7. Hypothyroid. 8. Peripheral artery disease. 9. Diabetes mellitus type 2 currently uncontrolled with hyperglycemia on insulin drip. PLAN: Continue medication and treatment plan. When patient's diet is more advanced we will switch over the patient more regular regimen for diabetes. Care was discussed with the patient. Will follow. MMODL / IJN: [id number] /
[2018-12-03 22:15] LABS: Glucose,Whole Blood 124 mg/dL (75-99)
[2018-12-03] MEDS ORDERED: hydrALAZINE HCL 20 MG/ML 1 ML VIAL IVP STA (23:19)
[2018-12-04 00:04] LABS: Glucose,Whole Blood 131 mg/dL (75-99)
[2018-12-04] MEDS: HEPARIN SODIUM,PORCINE 5,000 UNIT/ML 1 ML VIAL SQ SCH ×3 (00:15→15:28)
[2018-12-04] MEDS: HYDROcodone/APAP 5-325MG 1 EACH TAB PO PRN (00:18)
[2018-12-04 03:14] LABS: Glucose,Whole Blood 154 mg/dL (75-99)
[2018-12-04 04:26] LABS: Glucose,Whole Blood 148 mg/dL (75-99)
[2018-12-04 04:35] LABS: Basophils % (A) 0 %; Eosinophils # (A) 0.1 k/uL (0-0.7); Eosinophils % (A) 1 %; HCT 25.7 % (34.0-46.0); HGB 8.6 gm/dL (11.4-16.0); Lymphocytes % (A) 11 %; MCH 28.7 pg (25.0-35.0); MCHC 33.4 g/dL (31.0-37.0); Mean Platelet Volume 7.5; Monocytes # (A) 0.5 k/uL (0-1.0); Monocytes % (A) 5 %; Neutrophils % (A) 83 %; Platelet Count 170 k/uL (150-450); RBC 2.98 m/uL (3.80-5.40); RDW 15.2 % (11.5-15.5); WBC 9.7 k/uL (3.8-10.6)
[2018-12-04 04:54] LABS: Ionized Calcium 4.9 mg/dL (4.5-5.3)
[2018-12-04 05:04] LABS: ALT 31 U/L (9-52); AST 40 U/L (14-36); Albumin 3.1 g/dL (3.5-5.0); Alkaline Phosphatase 34 U/L (38-126); Anion Gap 5 mmol/L; Blood Urea Nitrogen 12 mg/dL (7-17); Calcium 8.2 mg/dL (8.4-10.2); Carbon Dioxide 24 mmol/L (22-30); Chloride 107 mmol/L (98-107); Glucose 135 mg/dL (74-99); Magnesium 2.2 mg/dL (1.6-2.3); Potassium 4.5 mmol/L (3.5-5.1); Sodium 136 mmol/L (137-145); Total Bilirubin 1.1 mg/dL (0.2-1.3); Total Protein 5.1 g/dL (6.3-8.2)
[2018-12-04] MEDS ORDERED: LEVOTHYROXINE 125 MCG TAB PO SCH (06:30)
[2018-12-04] MEDS: BENZOCAINE/MENTHOL LOZENG 1 EACH LOZENGE MUCOUS MEM PRN (06:43)
[2018-12-04] MEDS: KETOROLAC 30 MG/ML 1 ML VIAL IVP SCH ×3 (06:43→17:32)
[2018-12-04 06:48] LABS: Glucose,Whole Blood 142 mg/dL (75-99)
[2018-12-04] MEDS: LEVOTHYROXINE 125 MCG TAB PO SCH (06:52)
[2018-12-04] MEDS: IPRATROPIUM-ALBUTEROL 3 ML NEB INHALATION SCH ×4 (07:31→18:55)
--- NOTE | 2018-12-04 08:05 | XR ---
EXAMINATION TYPE: XR chest 1V portable DATE OF EXAM: 12/04/2018 COMPARISON: Prior chest x-ray 12/03/2018 HISTORY: Postop cardiac surgery TECHNIQUE: Single frontal view of the chest is obtained. FINDINGS: Right jugular central venous sheath with coaxial Wilburn-Al catheter overlying the pulmonar y artery, left chest tube, median sternal drain remain in place. No sizable pneumothorax is evident. Bibasilar density likely represents atelectasis. Heart size is stable. Aorta is dense. There are card iac leads. IMPRESSION: There may be basilar edema versus atelectasis, associated effusion, correlate to exclude pneumonia. Follow-up recommended.
[2018-12-04] MEDS ORDERED: FUROSEMIDE 10 MG/ML 4 ML VIAL IV STA (08:10)
[2018-12-04] MEDS: CLOPIDOGREL 75 MG TAB PO SCH (08:24)
[2018-12-04] MEDS: PANTOPRAZOLE 40 MG/10 ML VIAL IVP SCH (08:24)
[2018-12-04] MEDS: ASPIRIN 325 MG TAB PO SCH (08:24)
[2018-12-04] MEDS: ATORVASTATIN 40 MG TAB PO SCH (08:25)
[2018-12-04] MEDS: MUPIROCIN 2% OINT 22 GM TUBE NASAL SCH ×2 (08:25→22:04)
[2018-12-04 08:29] LABS: Glucose,Whole Blood 253 mg/dL (75-99)
[2018-12-04] MEDS ORDERED: METOPROLOL TARTRATE 25 MG TAB PO SCH (09:00)
[2018-12-04 09:20] LABS: Glucose,Whole Blood 218 mg/dL (75-99)
[2018-12-04 10:26] LABS: Glucose,Whole Blood 217 mg/dL (75-99)
--- NOTE | 2018-12-04 11:21 | P.PN ---
Subjective Progress Note Date: 12/04/18 Principal diagnosis: Symptomatic multivessel coronary artery disease with left main disease, non- STEMI, history of syncopal episodes, history of known coronary artery disease and myocardial infarction with stenting to her right coronary artery, uncontrolled diabetes mellitus with hemoglobin A1c preoperatively of 8.1%, hypertension, hyperlipidemia, previous tobacco dependence with a preoperative FEV1 of 81% of predicted value, peripheral arterial disease with history of bilateral lower extremity stent placement, infrarenal aortic stent and failed attempt of aortofemoral bypass, hypothyroidism, osteoarthritis, obesity, family history of coronary artery disease and history of preoperative urinary tract infection with a positive urine culture showing Klebsiella pneumoniae. POD #2 coronary artery bypass grafting 3 vessels with left internal mammary artery to the left anterior descending coronary artery, a reverse greater saphenous vein graft to the obtuse marginal coronary artery, and a reverse greater saphenous vein graft to the distal right coronary artery. Endoscopic vein harvest, left greater saphenous vein. Intraoperative epi-aortic ultrasound and transesophageal echocardiogram. The patient is sitting up to the bedside chair. She is in no acute distress. She denies any complaints of pain at this time, and reports that her pain has been much more controlled in the last 12-16 hours. She denies any complaints of shortness of breath. She remains on 2 L nasal cannula with oxygen saturation 97%. She is achieving 750 mL on her incentive spirometry. Dopamine drip remains at 2 mcg/kg/m and her urine output has improved. She is hemodynamically stable. She remains afebrile. Objective - Vital Signs Vital signs: Vital Signs Temp 98 F 12/04/18 08:00 Pulse 87 12/04/18 10:00 Resp 22 12/04/18 10:00 BP 112/64 12/04/18 10:00 Pulse Ox 98 12/04/18 10:00 Intake & Output 12/03/18 12/04/18 12/04/18 17:59 06:59 18:59 Intake Total 137.301 Output Total 486 Balance -348.699 Weight Intake: IV 117 ACETAMINOPHEN IV (For NPO ) 1,000 mg In Empty Bag 1 bag @ 400 mls/hr IVPB Q6HR [facility] Rx#:[id number] Albumin Human 5% 250 ml In Empty Bag 1 bag @ 250 mls/hr IVPB Q1HR PRN Rx#: [id number] CO/CI Lactated Ringers 1,000 ml 90 @ 20 mls/hr IV .Q24H [facility] Rx#:[id number] Nitroglycerin-D5w Pmx 50 mg In Dextrose/Water 1 250ml.bag @ 5 MCG/MIN 1.5 mls/hr IV .Q24H [facility] Rx#: [id number] pressure bag 27 Intake, IV Titration 20.301 Amount ACETAMINOPHEN IV (For NPO ) 1,000 mg In Empty Bag 1 bag @ 400 mls/hr IVPB Q6HR [facility] Rx#:[id number] DOPamine DRIP 800 mg In Dextrose/Water 1 250ml. bag @ 2 MCG/KG/MIN 3.48 mls/hr IV .Q24H [facility] Rx#: [id number] Insulin Regular 100 unit 20.301 In Sodium Chloride 0.9% 100 ml @ Per Protocol IV .Q0M [facility] Rx#:[id number] Magnesium Sulfate-D5w Pmx 1 gm In Dextrose/Water 1 100ml.bag @ 100 mls/hr IVPB Q1H [facility] Rx#: [id number] ceFAZolin 2,000 mg In Sodium Chloride 0.9% 30 ml @ Per Protocol IVPB ONCE ONE Rx#:[id number] Oral Blood Product Rc Pheresis As-3 Unit [id number] Output: Chest Tube Drainage Bilateral Mediastinal Left Pleural Urine 486 Other: Voiding Method Indwelling Catheter ABP, PAP, CO, CI - Last Documented Arterial Blood Pressure 102/38 Pulmonary Artery Pressure 19/7 Cardiac Output 3.8 Cardiac Index 2.5 - Constitutional General appearance: Present: cooperative, no acute distress, obese - Respiratory Details: Lungs sounds are essentially clear throughout, diminished bilateral bases. Respirations are symmetrical and nonlabored. Oxygen saturation are 97% on 2 L nasal cannula. She is achieving 500-750 mL on her incentive spirometry. Mediastinal and left pleural chest tubes remained to low continuous wall suction -20 cm H2O. No air leak is present. Draining thin serosanguineous drainage. Mediastinal chest tubes drained 70 mL output in the last 8 hours, 440 mL output in the last 24 hours. Left pleural chest tubes drained 110 mL output in the last 8 hours, 310 mL output in the last 24 hours. - Cardiovascular Details: Regular rhythm and rate. S1 and S2 present, negative for S3, gallop or murmur. Sternum is stable. Bedside telemetry showing normal sinus rhythm heart rate 93. Atrial and ventricular epicardial pacemaker wires in place and grounded. Heart hugger is in place and she is demonstrating appropriate use. Right IJ Cordis with Van Vleck-Al catheter in place. Current cardiac output 7.8, cardiac index 4.1, PA pressures 20/80, CVP 5 mmHg. Left radial arterial line in place and functioning. Knee-high FRANCA hose and sequential compression devices in place to bilateral lower extremities. +1 edema to her bilateral lower extremities. - Gastrointestinal Gastrointestinal Comment(s): Abdomen soft, nontender and nondistended. Active bowel sounds all 4 abdominal quadrants. Tolerating oral intake. Passing flatus. - Genitourinary Genitourinary Comment(s): Yang catheter for accurate I&O. Draining clear yellow urine. 365 mL output in the last 8 hours. - Integumentary Integumentary Comment(s): Skin is warm and dry. No clubbing or cyanosis is present. Midline sternal incision is clean, dry and approximated. No drainage or redness is present. Gauze dressing is clean, dry and intact. Left lower extremity EVH site clean, dry and approximated. No drainage or redness is present. Scattered ecchymotic areas to her left lower extremity which are soft and nontender to palpate. - Neurologic Neurologic: Present: CNII-XII intact - Musculoskeletal Musculoskeletal: Present: gait normal, generalized weakness, strength equal bilaterally - Psychiatric Psychiatric: Present: A&O x's 3, appropriate affect, intact judgment & insight - Allied health notes Allied health notes reviewed: nursing - Labs CBC & Chem 7: 12/04/18 04:08 12/04/18 04:08 Labs: Abnormal Lab Results - Last 24 Hours (Table) 11/28/18 12/03/18 12/03/18 Range/Units 14:43 10:13 11:14 RBC (3.80-5.40) m/uL Hgb (11.4-16.0) gm/dL Hct (34.0-46.0) % Neutrophils # (1.3-7.7) k/uL Sodium (137-145) mmol/L Glucose (74-99) mg/dL POC Glucose (mg/dL) 153 H 169 H (75-99) mg/dL Calcium (8.4-10.2) mg/dL AST (14-36) U/L Alkaline Phosphatase (38-126) U/L Total Protein (6.3-8.2) g/dL Albumin (3.5-5.0) g/dL Crossmatch See Detail 12/03/18 12/03/18 12/03/18 Range/Units 12:25 13:09 13:09 RBC 2.71 L (3.80-5.40) m/uL Hgb 8.0 L (11.4-16.0) gm/dL Hct 23.6 L (34.0-46.0) % Neutrophils # (1.3-7.7) k/uL Sodium (137-145) mmol/L Glucose (74-99) mg/dL POC Glucose (mg/dL) 152 H 148 H (75-99) mg/dL Calcium (8.4-10.2) mg/dL AST (14-36) U/L Alkaline Phosphatase (38-126) U/L Total Protein (6.3-8.2) g/dL Albumin (3.5-5.0) g/dL Crossmatch 12/03/18 12/03/18 12/03/18 Range/Units 14:22 15:47 17:02 RBC (3.80-5.40) m/uL Hgb (11.4-16.0) gm/dL Hct (34.0-46.0) % Neutrophils # (1.3-7.7) k/uL Sodium (137-145) mmol/L Glucose (74-99) mg/dL POC Glucose (mg/dL) 139 H 158 H 170 H (75-99) mg/dL Calcium (8.4-10.2) mg/dL AST (14-36) U/L Alkaline Phosphatase (38-126) U/L Total Protein (6.3-8.2) g/dL Albumin (3.5-5.0) g/dL Crossmatch 12/03/18 12/03/18 12/03/18 Range/Units 18:15 18:54 20:33 RBC (3.80-5.40) m/uL Hgb (11.4-16.0) gm/dL Hct (34.0-46.0) % Neutrophils # (1.3-7.7) k/uL Sodium (137-145) mmol/L Glucose (74-99) mg/dL POC Glucose (mg/dL) 170 H 157 H 139 H (75-99) mg/dL Calcium (8.4-10.2) mg/dL AST (14-36) U/L Alkaline Phosphatase (38-126) U/L Total Protein (6.3-8.2) g/dL Albumin (3.5-5.0) g/dL Crossmatch 12/03/18 12/03/18 12/04/18 Range/Units 22:04 23:53 03:03 RBC (3.80-5.40) m/uL Hgb (11.4-16.0) gm/dL Hct (34.0-46.0) % Neutrophils # (1.3-7.7) k/uL Sodium (137-145) mmol/L Glucose (74-99) mg/dL POC Glucose (mg/dL) 124 H 131 H 154 H (75-99) mg/dL Calcium (8.4-10.2) mg/dL AST (14-36) U/L Alkaline Phosphatase (38-126) U/L Total Protein (6.3-8.2) g/dL Albumin (3.5-5.0) g/dL Crossmatch 12/04/18 12/04/18 12/04/18 Range/Units 04:08 04:08 04:15 RBC 2.98 L (3.80-5.40) m/uL Hgb 8.6 L (11.4-16.0) gm/dL Hct 25.7 L (34.0-46.0) % Neutrophils # 8.0 H (1.3-7.7) k/uL Sodium 136 L (137-145) mmol/L Glucose 135 H (74-99) mg/dL POC Glucose (mg/dL) 148 H (75-99) mg/dL Calcium 8.2 L (8.4-10.2) mg/dL AST 40 H (14-36) U/L Alkaline Phosphatase 34 L (38-126) U/L Total Protein 5.1 L (6.3-8.2) g/dL Albumin 3.1 L (3.5-5.0) g/dL Crossmatch 12/04/18 12/04/18 12/04/18 Range/Units 06:36 08:18 09:08 RBC (3.80-5.40) m/uL Hgb (11.4-16.0) gm/dL Hct (34.0-46.0) % Neutrophils # (1.3-7.7) k/uL Sodium (137-145) mmol/L Glucose (74-99) mg/dL POC Glucose (mg/dL) 142 H 253 H 218 H (75-99) mg/dL Calcium (8.4-10.2) mg/dL AST (14-36) U/L Alkaline Phosphatase (38-126) U/L Total Protein (6.3-8.2) g/dL Albumin (3.5-5.0) g/dL Crossmatch 12/04/18 Range/Units 10:14 RBC (3.80-5.40) m/uL Hgb (11.4-16.0) gm/dL Hct (34.0-46.0) % Neutrophils # (1.3-7.7) k/uL Sodium (137-145) mmol/L Glucose (74-99) mg/dL POC Glucose (mg/dL) 217 H (75-99) mg/dL Calcium (8.4-10.2) mg/dL AST (14-36) U/L Alkaline Phosphatase (38-126) U/L Total Protein (6.3-8.2) g/dL Albumin (3.5-5.0) g/dL Crossmatch - Imaging and Cardiology Chest x-ray: report reviewed, image reviewed Assessment and Plan Assessment: 1. 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 2. History of recent non-STEMI. 3. Recent syncopal episodes. 4. History of known coronary artery disease and myocardial infarction with stenting to the right coronary artery. 5. Hypertension. 6. Hyperlipidemia. 7. Uncontrolled diabetes with preoperative hemoglobin A1c of 8.1%. 8. Peripheral arterial disease with previous bilateral lower extremity stent placement, infrarenal aortic stent and failed attempt at aortofemoral bypass. 9. Obesity 10. Family history of coronary artery disease 11. Osteoarthritis 12. Previous tobacco dependence with preoperative FEV1 of 81% of predicted value. Plan: 1. Continue aspirin, statin, Plavix, and beta dante. Will increase metoprolol tartrate as tolerated. 2. Discontinue dopamine drip. 3. Increase activity as tolerated. PT/OT and cardiac rehab following. 4. Wean oxygen as tolerated, encourage incentive spirometry use 10 times every hour while awake. 5. Bronchodilators per pulmonology. 6. Discontinue Van Vleck-Al catheter. 7. Will monitor daily labs and x-rays. Electrolyte replacement per protocol. 8. Pain control with current medication regimen. 9. Insulin management per primary care service. 10. GI prophylaxis with Protonix, DVT prophylaxis with subcu heparin and SCDs. 11. Discontinue mediastinal chest tubes, keep left pleural chest tube in place to low continuous wall suction -20 cm H2O. 12. Keep right IJ Cordis in place to continuous CVP monitoring, keep left radial arterial line and Yang catheter in place for another 24 hours. 13. Lasix 40 mg IV 1 now. 14. Start lisinopril 20 mg by mouth twice a day for afterload reduction. Hold for systolic blood pressure less than or equal to 95 mmHg. 15. Ground and epicardial pacemaker wires. 16. More recommendations to follow based on patient's clinical course. Mediastinal chest tubes removed without incident. 4 x 4 gauze to cover, impregnated Vaseline gauze to cover and secured with tape. Time with Patient: Greater than 30
[2018-12-04 11:44] LABS: Glucose,Whole Blood 166 mg/dL (75-99)
[2018-12-04] MEDS: LACTATED RINGERS 1,000 ML IV SCH (11:49)
[2018-12-04] MEDS: LISINOPRIL 20 MG TAB PO SCH ×2 (11:50→20:43)
--- NOTE | 2018-12-04 12:20 | P.PN ---
Subjective Progress Note Date: 12/04/18 12/03/2018: Patient is extubated and sitting in the chair. She claims she is feeling better. Patient's hemoglobin is 6.6 today. She is going to get 1 unit of blood transfusion. No arrhythmias noted. Chest x-ray shows postoperative changes. Overall, patient symptomatically stable. We'll continue current medical therapy. Left pelvis are reviewed. 12/04/2018: Patient is feeling better. Maintaining sinus rhythm. Hemoglobin is stable. Mediastinal tube and [place]-Al is about. Left chest tube is in. Patient is a note was good. She is taken off dopamine. Lungs show diminished breath sounds at bases. Heart is regular. Overall patient seemed to be progressing well. Continue current medical therapy. Incentive spirometry. Increase activity as tolerated Objective - Vital Signs Vital signs: Vital Signs Temp 98 F 12/04/18 08:00 Pulse 91 12/04/18 11:27 Resp 22 12/04/18 10:00 BP 112/64 12/04/18 10:00 Pulse Ox 98 12/04/18 10:00 Intake & Output 12/03/18 12/04/18 12/04/18 17:59 06:59 18:59 Intake Total 326.301 Output Total 701 Balance -374.699 Weight Intake: IV 156 ACETAMINOPHEN IV (For NPO ) 1,000 mg In Empty Bag 1 bag @ 400 mls/hr IVPB Q6HR [facility] Rx#:[id number] Albumin Human 5% 250 ml In Empty Bag 1 bag @ 250 mls/hr IVPB Q1HR PRN Rx#: [id number] CO/CI Lactated Ringers 1,000 ml 120 @ 20 mls/hr IV .Q24H [facility] Rx#:[id number] Nitroglycerin-D5w Pmx 50 mg In Dextrose/Water 1 250ml.bag @ 5 MCG/MIN 1.5 mls/hr IV .Q24H [facility] Rx#: [id number] pressure bag 36 Intake, IV Titration 20.301 Amount ACETAMINOPHEN IV (For NPO ) 1,000 mg In Empty Bag 1 bag @ 400 mls/hr IVPB Q6HR [facility] Rx#:[id number] DOPamine DRIP 800 mg In Dextrose/Water 1 250ml. bag @ 2 MCG/KG/MIN 3.48 mls/hr IV .Q24H [facility] Rx#: [id number] Insulin Regular 100 unit 20.301 In Sodium Chloride 0.9% 100 ml @ Per Protocol IV .Q0M [facility] Rx#:[id number] Magnesium Sulfate-D5w Pmx 1 gm In Dextrose/Water 1 100ml.bag @ 100 mls/hr IVPB Q1H [facility] Rx#: [id number] ceFAZolin 2,000 mg In Sodium Chloride 0.9% 30 ml @ Per Protocol IVPB ONCE ONE Rx#:[id number] Oral 150 Blood Product Rc Pheresis As-3 Unit [id number] Output: Chest Tube Drainage 50 Bilateral Mediastinal 20 Left Pleural 30 Urine 651 Other: Voiding Method Indwelling Catheter ABP, PAP, CO, CI - Last Documented Arterial Blood Pressure 102/38 Pulmonary Artery Pressure 19/7 Cardiac Output 3.8 Cardiac Index 2.5 - Exam GENERAL EXAM: Patient is alert and oriented and doesn't appear to be in any a cute distress HEENT: Normocephalic. Normal reaction of pupils, equal size, normal range of extraocular motion. No erythema or exudates in the throat. NECK: No masses, no nuchal rigidity. CHEST: Postsurgical LUNGS: Initially sounded bases, few rales HEART: mumurs or gallops. Regular rhythm, s.. ABDOMEN: Soft SKIN: No rashes CENTRAL NERVOUS SYSTEM: No focal deficits. EXTREMITIES: No cyanosis, clubbing or edema. - Labs CBC & Chem 7: 12/04/18 04:08 12/04/18 04:08 Labs: Abnormal Lab Results - Last 24 Hours (Table) 11/28/18 12/03/18 12/03/18 Range/Units 14:43 11:14 12:25 RBC (3.80-5.40) m/uL Hgb (11.4-16.0) gm/dL Hct (34.0-46.0) % Neutrophils # (1.3-7.7) k/uL Sodium (137-145) mmol/L Glucose (74-99) mg/dL POC Glucose (mg/dL) 169 H 152 H (75-99) mg/dL Calcium (8.4-10.2) mg/dL AST (14-36) U/L Alkaline Phosphatase (38-126) U/L Total Protein (6.3-8.2) g/dL Albumin (3.5-5.0) g/dL Crossmatch See Detail 12/03/18 12/03/18 12/03/18 Range/Units 13:09 13:09 14:22 RBC 2.71 L (3.80-5.40) m/uL Hgb 8.0 L (11.4-16.0) gm/dL Hct 23.6 L (34.0-46.0) % Neutrophils # (1.3-7.7) k/uL Sodium (137-145) mmol/L Glucose (74-99) mg/dL POC Glucose (mg/dL) 148 H 139 H (75-99) mg/dL Calcium (8.4-10.2) mg/dL AST (14-36) U/L Alkaline Phosphatase (38-126) U/L Total Protein (6.3-8.2) g/dL Albumin (3.5-5.0) g/dL Crossmatch 12/03/18 12/03/18 12/03/18 Range/Units 15:47 17:02 18:15 RBC (3.80-5.40) m/uL Hgb (11.4-16.0) gm/dL Hct (34.0-46.0) % Neutrophils # (1.3-7.7) k/uL Sodium (137-145) mmol/L Glucose (74-99) mg/dL POC Glucose (mg/dL) 158 H 170 H 170 H (75-99) mg/dL Calcium (8.4-10.2) mg/dL AST (14-36) U/L Alkaline Phosphatase (38-126) U/L Total Protein (6.3-8.2) g/dL Albumin (3.5-5.0) g/dL Crossmatch 12/03/18 12/03/18 12/03/18 Range/Units 18:54 20:33 22:04 RBC (3.80-5.40) m/uL Hgb (11.4-16.0) gm/dL Hct (34.0-46.0) % Neutrophils # (1.3-7.7) k/uL Sodium (137-145) mmol/L Glucose (74-99) mg/dL POC Glucose (mg/dL) 157 H 139 H 124 H (75-99) mg/dL Calcium (8.4-10.2) mg/dL AST (14-36) U/L Alkaline Phosphatase (38-126) U/L Total Protein (6.3-8.2) g/dL Albumin (3.5-5.0) g/dL Crossmatch 12/03/18 12/04/18 12/04/18 Range/Units 23:53 03:03 04:08 RBC 2.98 L (3.80-5.40) m/uL Hgb 8.6 L (11.4-16.0) gm/dL Hct 25.7 L (34.0-46.0) % Neutrophils # 8.0 H (1.3-7.7) k/uL Sodium (137-145) mmol/L Glucose (74-99) mg/dL POC Glucose (mg/dL) 131 H 154 H (75-99) mg/dL Calcium (8.4-10.2) mg/dL AST (14-36) U/L Alkaline Phosphatase (38-126) U/L Total Protein (6.3-8.2) g/dL Albumin (3.5-5.0) g/dL Crossmatch 12/04/18 12/04/18 12/04/18 Range/Units 04:08 04:15 06:36 RBC (3.80-5.40) m/uL Hgb (11.4-16.0) gm/dL Hct (34.0-46.0) % Neutrophils # (1.3-7.7) k/uL Sodium 136 L (137-145) mmol/L Glucose 135 H (74-99) mg/dL POC Glucose (mg/dL) 148 H 142 H (75-99) mg/dL Calcium 8.2 L (8.4-10.2) mg/dL AST 40 H (14-36) U/L Alkaline Phosphatase 34 L (38-126) U/L Total Protein 5.1 L (6.3-8.2) g/dL Albumin 3.1 L (3.5-5.0) g/dL Crossmatch 12/04/18 12/04/18 12/04/18 Range/Units 08:18 09:08 10:14 RBC (3.80-5.40) m/uL Hgb (11.4-16.0) gm/dL Hct (34.0-46.0) % Neutrophils # (1.3-7.7) k/uL Sodium (137-145) mmol/L Glucose (74-99) mg/dL POC Glucose (mg/dL) 253 H 218 H 217 H (75-99) mg/dL Calcium (8.4-10.2) mg/dL AST (14-36) U/L Alkaline Phosphatase (38-126) U/L Total Protein (6.3-8.2) g/dL Albumin (3.5-5.0) g/dL Crossmatch 12/04/18 Range/Units 11:33 RBC (3.80-5.40) m/uL Hgb (11.4-16.0) gm/dL Hct (34.0-46.0) % Neutrophils # (1.3-7.7) k/uL Sodium (137-145) mmol/L Glucose (74-99) mg/dL POC Glucose (mg/dL) 166 H (75-99) mg/dL Calcium (8.4-10.2) mg/dL AST (14-36) U/L Alkaline Phosphatase (38-126) U/L Total Protein (6.3-8.2) g/dL Albumin (3.5-5.0) g/dL Crossmatch Assessment and Plan (1) Status post coronary artery bypass graft Current Visit: Yes Status: Acute Code(s): Z95.1 - PRESENCE OF AORTOCORONARY BYPASS GRAFT SNOMED Code(s): 864104150 (2) Diabetes mellitus Current Visit: No Status: Chronic Code(s): E11.9 - TYPE 2 DIABETES MELLITUS WITHOUT COMPLICATIONS SNOMED Code(s): 05586497 (3) Hyperlipidemia Current Visit: No Status: Chronic Code(s): E78.5 - HYPERLIPIDEMIA, UNSPECIFIED SNOMED Code(s): 68895869 (4) Hypertension Current Visit: No Status: Chronic Code(s): I10 - ESSENTIAL (PRIMARY) HYPERTENSION SNOMED Code(s): 71976996 Plan: Patient is symptomatically stable. Off dopamine. Urine output is fair. Maintaining sinus rhythm. Increase activity and continue incentive spirometry.
[2018-12-04 12:59] LABS: Glucose,Whole Blood 198 mg/dL (75-99)
--- NOTE | 2018-12-04 13:19 | P.PN ---
Subjective Progress Note Date: 12/04/18 Principal diagnosis: status post CABG for symptomatic multivessel coronary artery disease, postoperative day #2 this is a 73-year-old female with history of multiple medical problems including type 2 diabetes, documented coronary artery disease and previous stent placement, history of peripheral arterial disease, patient was recently seen at [facility] for recurrent episodes of syncope, and workup revealed elevated troponin. Patient was transferred to [facility], and further workup was done.2-D echocardiogram showed good LV function, she was also found to have mitral valve regurgitation/mild cardiac catheterization showed 50% stenosis of her left main 60% stenosis of right coronary artery and 80% stenosis to her circumflex coronary artery 80% stenosis to her proximal LAD. Cardiothoracic surgery was consulted, patient was advised to undergo myocardial revascularization. Patient was discharged home a few days ago, and today she underwent elective myocardial revascularization. Postoperatively patient was brought into the ICU and I was asked to see her on consultation. She is presently on mechanical ventilation. Vital volume is 400, IMV rate of 12, FiO2 is 100%, and PEEP is 5. Chest x-ray showed mostly postoperative changes, no acute process was noted. ABG is pending. Patient was reevaluated today on 12/03/2018, remains in the ICU, she was extubated shortly after she arrived to the ICU last night. Her post operative course has been relatively uneventful. However he has a low hemoglobin of 6.6 today, and she is scheduled to have a unit of packed RBCs as ordered by thoracic surgery on the case.chest x-ray looks great, she has minimal subsegmental atelectasis. Left thoracostomy tube, mediastinal drains, and postoperative changes are noted on the chest x-ray. Pulmonary artery catheter is unchanged.all labs were revi ewed, again her hemoglobin is low and that being addressed already. The patient herself is asymptomatic, she is on few liters nasal cannula. Reevaluated today on 12/04/2018, patient remains in the ICU, doing fairly well, asymptomatic, denies any shortness of breath or cough or wheezing. She was pl aced on dopamine yesterday, mostly because of her low urine output, and she responded quite well to dopamine and Lasix. No cough no wheezing no fever no chills no hemoptysis, and she is doing fairly well with incentive spirometry. Chest x-ray showed minimal atelectasis and associated small tiny effusions, not clinically significant at this point, plus the patient is responding well to diuretics. Objective - Vital Signs Vital signs: Vital Signs Temp 98 F 12/04/18 08:00 Pulse 91 12/04/18 11:27 Resp 22 12/04/18 10:00 BP 112/64 12/04/18 10:00 Pulse Ox 98 12/04/18 10:00 Intake & Output 12/03/18 12/04/18 12/04/18 17:59 06:59 18:59 Intake Total 326.301 Output Total 701 Balance -374.699 Weight Intake: IV 156 ACETAMINOPHEN IV (For NPO ) 1,000 mg In Empty Bag 1 bag @ 400 mls/hr IVPB Q6HR [facility] Rx#:[id number] Albumin Human 5% 250 ml In Empty Bag 1 bag @ 250 mls/hr IVPB Q1HR PRN Rx#: [id number] CO/CI Lactated Ringers 1,000 ml 120 @ 20 mls/hr IV .Q24H [facility] Rx#:[id number] Nitroglycerin-D5w Pmx 50 mg In Dextrose/Water 1 250ml.bag @ 5 MCG/MIN 1.5 mls/hr IV .Q24H [facility] Rx#: [id number] pressure bag 36 Intake, IV Titration 20.301 Amount ACETAMINOPHEN IV (For NPO ) 1,000 mg In Empty Bag 1 bag @ 400 mls/hr IVPB Q6HR [facility] Rx#:[id number] DOPamine DRIP 800 mg In Dextrose/Water 1 250ml. bag @ 2 MCG/KG/MIN 3.48 mls/hr IV .Q24H [facility] Rx#: [id number] Insulin Regular 100 unit 20.301 In Sodium Chloride 0.9% 100 ml @ Per Protocol IV .Q0M [facility] Rx#:[id number] Magnesium Sulfate-D5w Pmx 1 gm In Dextrose/Water 1 100ml.bag @ 100 mls/hr IVPB Q1H [facility] Rx#: [id number] ceFAZolin 2,000 mg In Sodium Chloride 0.9% 30 ml @ Per Protocol IVPB ONCE ONE Rx#:[id number] Oral 150 Blood Product Rc Pheresis As-3 Unit [id number] Output: Chest Tube Drainage 50 Bilateral Mediastinal 20 Left Pleural 30 Urine 651 Other: Voiding Method Indwelling Catheter ABP, PAP, CO, CI - Last Documented Arterial Blood Pressure 102/38 Pulmonary Artery Pressure 19/7 Cardiac Output 3.8 Cardiac Index 2.5 - Exam Physical Exam: Revealed a 73-year-old female in no distress. Head: Atraumatic, normocephalic. HEENT:[Neck is supple.] [No neck masses.] [No thyromegaly.] [No JVD.] Chest: [diminished breath sounds and crackles at the bases. No rhonchi no w heezes. Cardiac Exam: [Normal S1 and S2, no S3 gallop, no murmur.] Abdomen: [Soft, nontender, no megaly, no rebound, no guarding, normal bowel sounds.] Extremities: [No clubbing, no edema, no cyanosis.] Neurological Exam: [No focal neurologic deficit.] Psychiatric: Normal mood affect and mental status examination. Skin: No rashes - Labs CBC & Chem 7: 12/04/18 04:08 12/04/18 04:08 Labs: Abnormal Lab Results - Last 24 Hours (Table) 11/28/18 12/03/18 12/03/18 Range/Units 14:43 12:25 13:09 RBC 2.71 L (3.80-5.40) m/uL Hgb 8.0 L (11.4-16.0) gm/dL Hct 23.6 L (34.0-46.0) % Neutrophils # (1.3-7.7) k/uL Sodium (137-145) mmol/L Glucose (74-99) mg/dL POC Glucose (mg/dL) 152 H (75-99) mg/dL Calcium (8.4-10.2) mg/dL AST (14-36) U/L Alkaline Phosphatase (38-126) U/L Total Protein (6.3-8.2) g/dL Albumin (3.5-5.0) g/dL Crossmatch See Detail 12/03/18 12/03/18 12/03/18 Range/Units 13:09 14:22 15:47 RBC (3.80-5.40) m/uL Hgb (11.4-16.0) gm/dL Hct (34.0-46.0) % Neutrophils # (1.3-7.7) k/uL Sodium (137-145) mmol/L Glucose (74-99) mg/dL POC Glucose (mg/dL) 148 H 139 H 158 H (75-99) mg/dL Calcium (8.4-10.2) mg/dL AST (14-36) U/L Alkaline Phosphatase (38-126) U/L Total Protein (6.3-8.2) g/dL Albumin (3.5-5.0) g/dL Crossmatch 12/03/18 12/03/18 12/03/18 Range/Units 17:02 18:15 18:54 RBC (3.80-5.40) m/uL Hgb (11.4-16.0) gm/dL Hct (34.0-46.0) % Neutrophils # (1.3-7.7) k/uL Sodium (137-145) mmol/L Glucose (74-99) mg/dL POC Glucose (mg/dL) 170 H 170 H 157 H (75-99) mg/dL Calcium (8.4-10.2) mg/dL AST (14-36) U/L Alkaline Phosphatase (38-126) U/L Total Protein (6.3-8.2) g/dL Albumin (3.5-5.0) g/dL Crossmatch 12/03/18 12/03/18 12/03/18 Range/Units 20:33 22:04 23:53 RBC (3.80-5.40) m/uL Hgb (11.4-16.0) gm/dL Hct (34.0-46.0) % Neutrophils # (1.3-7.7) k/uL Sodium (137-145) mmol/L Glucose (74-99) mg/dL POC Glucose (mg/dL) 139 H 124 H 131 H (75-99) mg/dL Calcium (8.4-10.2) mg/dL AST (14-36) U/L Alkaline Phosphatase (38-126) U/L Total Protein (6.3-8.2) g/dL Albumin (3.5-5.0) g/dL Crossmatch 12/04/18 12/04/18 12/04/18 Range/Units 03:03 04:08 04:08 RBC 2.98 L (3.80-5.40) m/uL Hgb 8.6 L (11.4-16.0) gm/dL Hct 25.7 L (34.0-46.0) % Neutrophils # 8.0 H (1.3-7.7) k/uL Sodium 136 L (137-145) mmol/L Glucose 135 H (74-99) mg/dL POC Glucose (mg/dL) 154 H (75-99) mg/dL Calcium 8.2 L (8.4-10.2) mg/dL AST 40 H (14-36) U/L Alkaline Phosphatase 34 L (38-126) U/L Total Protein 5.1 L (6.3-8.2) g/dL Albumin 3.1 L (3.5-5.0) g/dL Crossmatch 12/04/18 12/04/18 12/04/18 Range/Units 04:15 06:36 08:18 RBC (3.80-5.40) m/uL Hgb (11.4-16.0) gm/dL Hct (34.0-46.0) % Neutrophils # (1.3-7.7) k/uL Sodium (137-145) mmol/L Glucose (74-99) mg/dL POC Glucose (mg/dL) 148 H 142 H 253 H (75-99) mg/dL Calcium (8.4-10.2) mg/dL AST (14-36) U/L Alkaline Phosphatase (38-126) U/L Total Protein (6.3-8.2) g/dL Albumin (3.5-5.0) g/dL Crossmatch 12/04/18 12/04/18 12/04/18 Range/Units 09:08 10:14 11:33 RBC (3.80-5.40) m/uL Hgb (11.4-16.0) gm/dL Hct (34.0-46.0) % Neutrophils # (1.3-7.7) k/uL Sodium (137-145) mmol/L Glucose (74-99) mg/dL POC Glucose (mg/dL) 218 H 217 H 166 H (75-99) mg/dL Calcium (8.4-10.2) mg/dL AST (14-36) U/L Alkaline Phosphatase (38-126) U/L Total Protein (6.3-8.2) g/dL Albumin (3.5-5.0) g/dL Crossmatch 12/04/18 Range/Units 12:47 RBC (3.80-5.40) m/uL Hgb (11.4-16.0) gm/dL Hct (34.0-46.0) % Neutrophils # (1.3-7.7) k/uL Sodium (137-145) mmol/L Glucose (74-99) mg/dL POC Glucose (mg/dL) 198 H (75-99) mg/dL Calcium (8.4-10.2) mg/dL AST (14-36) U/L Alkaline Phosphatase (38-126) U/L Total Protein (6.3-8.2) g/dL Albumin (3.5-5.0) g/dL Crossmatch Assessment and Plan Assessment: impression: 1 status post myocardial revascularization for multiple vessel coronary artery disease. patient had HURT to LAD, saphenous vein graft to obtuse marginal artery and saphenous vein graft to distal right coronary artery.postoperative day #2 2 multivessel coronary artery disease as noted on her recent cardiac catheterization. 3 benign essential hypertension 4 type 2 diabetes. 5 peripheral vessel occlusive disease involving lower extremities. Infrarenal aorta, right and left common iliac arteries and previous stents placement. 6 postoperative anemia secondary to blood loss, and that is expected, patient will be transfused with 1 unit of packed RBCs today. 6 history of hypothyroidism, osteoarthritis, hyperlipidemia, nicotine dependence presently in remission,recent episodes of syncope. Recommendation: continue incentive spirometry, gentle diuresis, bronchodilators, ambulation, increase activity, continue aspirin and statin Plavix and beta blockers. Patient will likely come off dopamine this morning, increase activity as tolerated, wean oxygen as tolerated, discontinue [place]-Al catheter today, pain control medications, insulin as per protocol. We'll continue to follow. Time with Patient: Less than 30
[2018-12-04 14:10] LABS: Glucose,Whole Blood 243 mg/dL (75-99)
[2018-12-04] MEDS: CLEVIDIPINE BUTYRATE 25 MG in EMPTY BAG 1 BAG IV SCH (15:26)
[2018-12-04] MEDS: metFORMIN 500 MG TAB PO SCH ×2 (15:27→20:43)
[2018-12-04 15:57] LABS: Glucose,Whole Blood 209 mg/dL (75-99)
--- NOTE | 2018-12-04 16:47 | PN ---
PROGRESS NOTE DATE OF SERVICE: December 04, 2018. PRESENTING COMPLAINT: Coronary artery bypass. INTERVAL HISTORY: Patient is status post coronary bypass in the ICU. Sitting up in a chair, looking, feeling much better. Did tolerate some diet. One chest tube is still present. Patient remains on insulin drip. Breathing is better. Seen by Physical therapy. The patient did walk a bit. Did pass some flatus. REVIEW OF SYSTEMS: Done for constitutional, cardiovascular, GI, pulmonary; relevant findings as above. CURRENT MEDICATIONS: Reviewed that include insulin drip. PHYSICAL EXAMINATION: VITAL SIGNS: Temperature 97.9, pulse 95, respiration 15, blood pressure 120/56, pulse ox 94 percent on room air. GENERAL APPEARANCE: Sitting up on a chair, awake. Less tired appearing. EYES: Pupils equal. Conjunctivae normal. NECK: JVD unable to assess. Mass not palpable. RESPIRATORY: Effort increased. LUNGS: Diminished breath sounds. CARDIOVASCULAR: Heart sounds muffled. Minimal edema. ABDOMEN: Soft, nontender. Liver and spleen not palpable. PSYCHIATRY: Alert and oriented x3. Mood and affect is normal. INVESTIGATIONS: Accu-Cheks are noted. White count 9.7, hemoglobin 8.6, potassium 4.5, BUN 12, creatinine 0.66. Accu-Cheks 148, 142, 253. ASSESSMENT: 1. Coronary artery bypass x3. 2. Recent non-Q-wave myocardial infarction 2 weeks ago. 3. Diabetes mellitus type 2, on oral hypoglycemic, currently on insulin drip, uncontrolled with hyperglycemia. 4. Essential hypertension. 5. Hyperlipidemia. 6. Primary osteoarthritis. 7. Hypothyroid. 8. Peripheral artery disease. PLAN: We will start the patient's Victoza tomorrow morning. The patient's oral hypoglycemic pills can be started today. We will keep the patient insulin drip and slowly tapered off depending on the sugars. Care was discussed with the patient. MMODL / IJN: [id number] /
[2018-12-04 17:17] LABS: Glucose,Whole Blood 188 mg/dL (75-99)
[2018-12-04 18:23] LABS: Glucose,Whole Blood 187 mg/dL (75-99)
[2018-12-04 20:42] LABS: Glucose,Whole Blood 177 mg/dL (75-99)
[2018-12-04] MEDS: SENNOSIDES-DOCUSATE SODIUM 1 EACH TAB PO SCH (20:43)
[2018-12-04] MEDS: METOPROLOL TARTRATE 25 MG TAB PO SCH (20:43)
[2018-12-04] MEDS: INSULIN REGULAR 100 UNIT in SODIUM CHLORIDE 0.9% 100 ML IV SCH (23:17)
[2018-12-04 23:25] LABS: Glucose,Whole Blood 120 mg/dL (75-99)
[2018-12-05 00:06] LABS: Glucose,Whole Blood 104 mg/dL (75-99)
[2018-12-05] MEDS: HEPARIN SODIUM,PORCINE 5,000 UNIT/ML 1 ML VIAL SQ SCH ×3 (00:45→15:44)
[2018-12-05] MEDS: KETOROLAC 30 MG/ML 1 ML VIAL IVP SCH ×4 (00:45→19:04)
[2018-12-05] MEDS: HYDROcodone/APAP 5-325MG 1 EACH TAB PO PRN (01:20)
[2018-12-05 02:14] LABS: Glucose,Whole Blood 114 mg/dL (75-99)
[2018-12-05 03:14] LABS: Glucose,Whole Blood 170 mg/dL (75-99)
[2018-12-05 05:03] LABS: Glucose,Whole Blood 146 mg/dL (75-99)
[2018-12-05 05:17] LABS: Albumin 2.6 g/dL (3.5-5.0); Calcium 7.8 mg/dL (8.4-10.2); Potassium 4.4 mmol/L (3.5-5.1); Total Protein 4.5 g/dL (6.3-8.2)
[2018-12-05 05:43] LABS: Basophils % (A) 0 %; Eosinophils # (A) 0.2 k/uL (0-0.7); Eosinophils % (A) 2 %; HCT 22.4 % (34.0-46.0); HGB 7.6 gm/dL (11.4-16.0); Lymphocytes # (A) 1.6 k/uL (1.0-4.8); Lymphocytes % (A) 18 %; MCH 29.6 pg (25.0-35.0); MCHC 33.8 g/dL (31.0-37.0); MCV 87.4 fL (80.0-100.0); Mean Platelet Volume 7.5; Monocytes # (A) 0.4 k/uL (0-1.0); Monocytes % (A) 4 %; Neutrophils # (A) 6.4 k/uL (1.3-7.7); Neutrophils % (A) 75 %; Platelet Count 174 k/uL (150-450); RBC 2.56 m/uL (3.80-5.40); RDW 15.2 % (11.5-15.5); WBC 8.6 k/uL (3.8-10.6)
[2018-12-05 06:14] LABS: Glucose,Whole Blood 133 mg/dL (75-99)
[2018-12-05] MEDS: LEVOTHYROXINE 125 MCG TAB PO SCH ×2 (06:29→06:39)
[2018-12-05] MEDS: LIRAGLUTIDE 1.8 MG SQ SCH (06:38)
[2018-12-05] MEDS: CLOPIDOGREL 75 MG TAB PO SCH (07:53)
[2018-12-05] MEDS: ASPIRIN 325 MG TAB PO SCH (07:54)
[2018-12-05] MEDS: ATORVASTATIN 40 MG TAB PO SCH (07:54)
[2018-12-05] MEDS: LISINOPRIL 20 MG TAB PO SCH ×2 (07:54→22:03)
[2018-12-05] MEDS: METOPROLOL TARTRATE 25 MG TAB PO SCH (07:54)
[2018-12-05] MEDS: metFORMIN 500 MG TAB PO SCH ×2 (07:54→21:16)
[2018-12-05] MEDS: PANTOPRAZOLE 40 MG/10 ML VIAL IVP SCH (07:54)
[2018-12-05] MEDS: MUPIROCIN 2% OINT 22 GM TUBE NASAL SCH ×2 (07:55→21:17)
[2018-12-05] MEDS: GLIMEPIRIDE 4 MG TAB PO SCH (08:04)
[2018-12-05] MEDS ORDERED: FUROSEMIDE 10 MG/ML 4 ML VIAL IV STA (08:12)
[2018-12-05 08:18] LABS: Glucose,Whole Blood 233 mg/dL (75-99)
[2018-12-05] MEDS: IPRATROPIUM-ALBUTEROL 3 ML NEB INHALATION SCH ×4 (08:40→20:56)
[2018-12-05] MEDS ORDERED: METOPROLOL TARTRATE 25 MG TAB PO STA (09:24)
[2018-12-05 09:39] LABS: Glucose,Whole Blood 221 mg/dL (75-99)
--- NOTE | 2018-12-05 10:08 | XR ---
EXAMINATION TYPE: XR chest 1V portable DATE OF EXAM: 12/05/2018 COMPARISON: Prior chest x-ray 12/04/2018 HISTORY: Postop cardiac surgery TECHNIQUE: Single frontal view of the chest is obtained. FINDINGS: Patient is post median sternotomy. Left chest tube remains in place. Right jugular central venous sheath and coaxial [place]-Al catheter have been removed. Median sternal drain no longer seen. Epicardial pacing leads suspected in place. Possible minimal left apical pneumothorax. Bibasilar den sity persists. Heart size is stable. IMPRESSION: Suspect some improved aeration as compared to prior exam. Interval tube and line removal . Minimal left apical pneumothorax suspected.
[2018-12-05 10:40] LABS: Glucose,Whole Blood 200 mg/dL (75-99)
[2018-12-05] MEDS: LACTATED RINGERS 1,000 ML IV SCH (11:15)
--- NOTE | 2018-12-05 11:21 | P.PN ---
Subjective Progress Note Date: 12/05/18 Principal diagnosis: post coronary artery bypass grafting for symptomatic multivessel coronary artery disease, postoperative day 3 this is a 73-year-old female with history of multiple medical problems including type 2 diabetes, documented coronary artery disease and previous stent placement, history of peripheral arterial disease, patient was recently seen at [facility] for recurrent episodes of syncope, and workup revealed elevated troponin. Patient was transferred to [facility], and further workup was done.2-D echocardiogram showed good LV function, she was also found to have mitral valve regurgitation/mild cardiac catheterization showed 50% stenosis of her left main 60% stenosis of right coronary artery and 80% stenosis to her circumflex coronary artery 80% stenosis to her proximal LAD. Cardiothoracic surgery was consulted, patient was advised to undergo myocardial revascularization. Patient was discharged home a few days ago, and today she underwent elective myocardial revascularization. Postoperatively patient was brought into the ICU and I was asked to see her on consultation. She is presently on mechanical ventilation. Vital volume is 400, IMV rate of 12, FiO2 is 100%, and PEEP is 5. Chest x-ray showed mostly postoperative changes, no acute process was noted. ABG is pending. Patient was reevaluated today on 12/03/2018, remains in the ICU, she was extubated shortly after she arrived to the ICU last night. Her post operative course has been relatively uneventful. However he has a low hemoglobin of 6.6 today, and she is scheduled to have a unit of packed RBCs as ordered by thoracic surgery on the case.chest x-ray looks great, she has minimal subsegmental atelectasis. Left thoracostomy tube, mediastinal drains, and postoperative changes are noted on the chest x-ray. Pulmonary artery catheter is unchanged.all labs were reviewed, again her hemoglobin is low and that being addressed already. The patient herself is asymptomatic, she is on few liters nasal cannula. Reevaluated today on 12/04/2018, patient remains in the ICU, doing fairly well, asymptomatic, denies any shortness of breath or cough or wheezing. She was placed on dopamine yesterday, mostly because of her low urine output, and she responded quite well to dopamine and Lasix. No cough no wheezing no fever no chills no hemoptysis, and she is doing fairly well with incentive spirometry. Chest x-ray showed minimal atelectasis and associated small tiny effusions, not clinically significant at this point, plus the patient is responding well to diuretics. On 12/01/2018 patient seen in follow-up in intensive care unit, she is resting comfortably in bed, she is on room air, her pulse ox is 94%, she is afebrile, hemodynamically stable. Lung sounds are positive for just a few bibasilar crackles, this is postop day 3 status post three-vessel coronary artery bypass grafting, no IVs other than not LR at a rate of 10 mL an hour, no other drips. Patient is in sinus rhythm on the monitor with a controlled rate, no acute complaints, patient is working on her incentive spirometer, only to about 750 ML on the today. No wheezing, no chest congestion. Today's labs have been reviewed, showed white blood cell count of 8.6, hemoglobin is 7.6, sodium was 134, the rest of electrolytes and renal profile were unremarkable. Chest x-ray has been reviewed by Dr. Mcclure, and showed improved aeration, there is some minimal left apical pneumothorax, and a CT surgery removing the left-sided chest tube today. Objective - Vital Signs Vital signs: Vital Signs Temp 98 F 12/05/18 08:00 Pulse 94 12/05/18 10:00 Resp 55 H 12/05/18 10:00 BP 117/52 12/05/18 10:00 Pulse Ox 94 L 12/05/18 10:00 Intake & Output 12/04/18 12/05/18 12/05/18 18:59 06:59 18:59 Intake Total 599.301 523.618 79.144 Output Total 1131 436 905 Balance -531.699 87.618 -825.856 Weight 92.3 kg Intake: IV 429 488 52 Lactated Ringers 1,000 ml 330 380 40 @ 20 mls/hr IV .Q24H [facility] Rx#:[id number] pressure bag 99 108 12 Intake, IV Titration 20.301 35.618 27.144 Amount Insulin Regular 100 unit 20.301 35.618 27.144 In Sodium Chloride 0.9% 100 ml @ Per Protocol IV .Q0M [facility] Rx#:[id number] Oral 150 Output: Chest Tube Drainage 90 110 60 Bilateral Mediastinal 20 Left Pleural 70 110 60 Urine 1041 326 845 Other: Voiding Method Indwelling Catheter Indwelling Catheter Indwelling Catheter ABP, PAP, CO, CI - Last Documented Arterial Blood Pressure 109/37 Pulmonary Artery Pressure 25/14 Cardiac Output 3.8 Cardiac Index 2.5 - Exam GENERAL EXAM: Alert, pleasant, 73-year-old white female, on room air comfortable in no apparent distress. HEAD: Normocephalic/atraumatic. EYES: Normal reaction of pupils, equal size. Conjunctiva pink, sclera white. NOSE: Clear with pink turbinates. THROAT: No erythema or exudates. NECK: No masses, no JVD, no thyroid enlargement, no adenopathy. CHEST: No chest wall deformity. Symmetrical expansion. Mid sternal incision is clean dry and intact, left-sided chest tube is in place, draining thin serous fluid. LUNGS: Equal air entry with no crackles, wheeze, rhonchi or dullness. CVS: Regular rate and rhythm, normal S1 and S2, no gallops, no murmurs, no rubs ABDOMEN: Soft, nontender. No hepatosplenomegaly, normal bowel sounds, no guarding or rigidity. EXTREMITIES: No clubbing, no edema, no cyanosis, 2+ pulses and upper and lower extremities. MUSCULOSKELETAL: Muscle strength and tone normal. SPINE: No scoliosis or deformity SKIN: No rashes CENTRAL NERVOUS SYSTEM: Alert and oriented -3. No focal deficits, tone is normal in all 4 extremities. PSYCHIATRIC: Alert and oriented -3. Appropriate affect. Intact judgment and insight. - Labs CBC & Chem 7: 12/05/18 04:50 12/05/18 04:50 Labs: Abnormal Lab Results - Last 24 Hours (Table) 12/04/18 12/04/18 12/04/18 Range/Units 11:33 12:47 13:58 RBC (3.80-5.40) m/uL Hgb (11.4-16.0) gm/dL Hct (34.0-46.0) % Sodium (137-145) mmol/L BUN (7-17) mg/dL Glucose (74-99) mg/dL POC Glucose (mg/dL) 166 H 198 H 243 H (75-99) mg/dL Calcium (8.4-10.2) mg/dL Total Protein (6.3-8.2) g/dL Albumin (3.5-5.0) g/dL 12/04/18 12/04/18 12/04/18 Range/Units 15:45 17:06 18:12 RBC (3.80-5.40) m/uL Hgb (11.4-16.0) gm/dL Hct (34.0-46.0) % Sodium (137-145) mmol/L BUN (7-17) mg/dL Glucose (74-99) mg/dL POC Glucose (mg/dL) 209 H 188 H 187 H (75-99) mg/dL Calcium (8.4-10.2) mg/dL Total Protein (6.3-8.2) g/dL Albumin (3.5-5.0) g/dL 12/04/18 12/04/18 12/04/18 Range/Units 20:31 23:13 23:55 RBC (3.80-5.40) m/uL Hgb (11.4-16.0) gm/dL Hct (34.0-46.0) % Sodium (137-145) mmol/L BUN (7-17) mg/dL Glucose (74-99) mg/dL POC Glucose (mg/dL) 177 H 120 H 104 H (75-99) mg/dL Calcium (8.4-10.2) mg/dL Total Protein (6.3-8.2) g/dL Albumin (3.5-5.0) g/dL 12/05/18 12/05/18 12/05/18 Range/Units 02:03 03:03 04:50 RBC 2.56 L (3.80-5.40) m/uL Hgb 7.6 L (11.4-16.0) gm/dL Hct 22.4 L (34.0-46.0) % Sodium (137-145) mmol/L BUN (7-17) mg/dL Glucose (74-99) mg/dL POC Glucose (mg/dL) 114 H 170 H (75-99) mg/dL Calcium (8.4-10.2) mg/dL Total Protein (6.3-8.2) g/dL Albumin (3.5-5.0) g/dL 12/05/18 12/05/18 12/05/18 Range/Units 04:50 04:52 06:02 RBC (3.80-5.40) m/uL Hgb (11.4-16.0) gm/dL Hct (34.0-46.0) % Sodium 134 L (137-145) mmol/L BUN 19 H (7-17) mg/dL Glucose 132 H (74-99) mg/dL POC Glucose (mg/dL) 146 H 133 H (75-99) mg/dL Calcium 7.8 L (8.4-10.2) mg/dL Total Protein 4.5 L (6.3-8.2) g/dL Albumin 2.6 L (3.5-5.0) g/dL 12/05/18 12/05/18 12/05/18 Range/Units 08:06 09:27 10:28 RBC (3.80-5.40) m/uL Hgb (11.4-16.0) gm/dL Hct (34.0-46.0) % Sodium (137-145) mmol/L BUN (7-17) mg/dL Glucose (74-99) mg/dL POC Glucose (mg/dL) 233 H 221 H 200 H (75-99) mg/dL Calcium (8.4-10.2) mg/dL Total Protein (6.3-8.2) g/dL Albumin (3.5-5.0) g/dL Assessment and Plan Plan: 1 status post myocardial revascularization for multiple vessel coronary artery disease. patient had HURT to LAD, saphenous vein graft to obtuse marginal artery and saphenous vein graft to distal right coronary artery.postoperative day #3 2 multivessel coronary artery disease as noted on her recent cardiac catheterization. 3 benign essential hypertension 4 type 2 diabetes. 5 peripheral vessel occlusive disease involving lower extremities. Infrarenal aorta, right and left common iliac arteries and previous stents placement. 6 postoperative anemia secondary to blood loss, and that is expected, patient will be transfused with 1 unit of packed RBCs today. 6 history of hypothyroidism, osteoarthritis, hyperlipidemia, nicotine dependence presently in remission,recent episodes of syncope. Plan: Patient is doing well, today's chest x-ray has been reviewed by Dr. Mcclure, shows improved aeration, and minimal left apical pneumothorax, left-sided chest tube is being discontinued today, patient denies any worsening shortness of breath, no cough or chest congestion, patient is working on her incentive spirometer, increase ambulation, pain is well controlled, no acute events overnight, we'll continue to follow, I performed a history & physical examination of the patient and discussed their management with my nurse practitioner, Aleta Selby. I reviewed the nurse practitioner's note and agree with the documented findings and plan of care. Lung sounds are positive for bibasilar crackles. The findings and the impression was discussed with the patient. I attest to the documentation by the nurse practitioner. Time with Patient: Less than 30
[2018-12-05 11:22] LABS: Glucose,Whole Blood 175 mg/dL (75-99)
[2018-12-05 12:20] LABS: Glucose,Whole Blood 149 mg/dL (75-99)
[2018-12-05] MEDS: CLEVIDIPINE BUTYRATE 25 MG in EMPTY BAG 1 BAG IV SCH (12:38)
[2018-12-05 14:33] LABS: Glucose,Whole Blood 130 mg/dL (75-99)
[2018-12-05 14:33] LABS: Glucose,Whole Blood 138 mg/dL (75-99)
--- NOTE | 2018-12-05 14:36 | P.PN ---
Progress Note - Text Progress Note Date: 12/05/18 This 73-year-old female with a well-developed so coronary artery disease is status post coronary bypass surgery. Patient had HURT to the LAD, vein graft to the OM branch and vein graft to the right coronary artery. Patient is also known to have hypertension, diabetes and peripheral vascular disease. Patient had stent placement of the iliac arteries in the past. She is also known to have hypothyroidism, hyperlipidemia. Patient seemed to be doing very well. Patient is alert and oriented and doesn't appear in acute distress. She is maintaining sinus rhythm. She is maintaining her hemoglobin. Lab values showed hemoglobin of 7.6. White count is 8.6. Vital signs showed a blood pressure of 100/56. Pulse is about 90. Respiratory rate is about 20. GENERAL EXAM: Patient is alert and oriented and doesn't appear to be in any acute distress HEENT: Normocephalic. Normal reaction of pupils, equal size, normal range of extraocular motion. No erythema or exudates in the throat. NECK: No masses, no nuchal rigidity. CHEST: No chest wall deformity. LUNGS: Diminished breath sounds HEART: S1 and S2 normal with no audible mumurs or gallops. Regular rhythm, femorals equal on both sides.. ABDOMEN: No hepatosplenomegaly, normal bowel sounds, no guarding or rigidity. SKIN: No rashes CENTRAL NERVOUS SYSTEM: No focal deficits. EXTREMITIES: No cyanosis, clubbing or edema. Final impression #1. Status post multivessel bypass surgery #2. Peripheral vascular disease #3 hypertension #4. Diabetes mellitus. Plan increase physical activity as tolerated. Incentive spirometry. Overall patient seemed to be progressing fairly well
[2018-12-05 16:45] LABS: Glucose,Whole Blood 184 mg/dL (75-99)
[2018-12-05 17:30] LABS: Glucose,Whole Blood 214 mg/dL (75-99)
--- NOTE | 2018-12-05 17:41 | P.PN ---
Subjective Progress Note Date: 12/05/18 Principal diagnosis: Symptomatic multivessel coronary artery disease with left main disease, non- STEMI, history of syncopal episodes, history of known coronary artery disease and myocardial infarction with stenting to her right coronary artery, uncontrolled diabetes mellitus with hemoglobin A1c preoperatively of 8.1%, hypertension, hyperlipidemia, previous tobacco dependence with a preoperative FEV1 of 81% of predicted value, peripheral arterial disease with history of bilateral lower extremity stent placement, infrarenal aortic stent and failed attempt of aortofemoral bypass, hypothyroidism, osteoarthritis, obesity, family history of coronary artery disease and history of preoperative urinary tract infection with a positive urine culture showing Klebsiella pneumoniae. POD #3 coronary artery bypass grafting 3 vessels with left internal mammary artery to the left anterior descending coronary artery, a reverse greater saphenous vein graft to the obtuse marginal coronary artery, and a reverse greater saphenous vein graft to the distal right coronary artery. Endoscopic vein harvest, left greater saphenous vein. Intraoperative epi-aortic ultrasound and transesophageal echocardiogram. The patient is sitting up to the bedside chair. She is in no acute distress. She denies any complaints of pain or shortness of breath this time. Oxygen saturations are 95% on room air. She is achieving 750-1000 mL on her incentive spirometry. She remains afebrile and hemodynamically stable. She is tolerating oral intake and denies any complaints of nausea. She reports that she had a bowel movement this a.m. Left pleural chest tube remains in place to low continuous wall suction -20 cm H2O. No air leak is present and is draining thin serosanguineous drainage. Objective - Vital Signs Vital signs: Vital Signs Temp 97.9 F 12/05/18 16:00 Pulse 96 12/05/18 16:07 Resp 14 12/05/18 16:00 BP 124/54 12/05/18 16:00 Pulse Ox 95 12/05/18 16:00 Intake & Output 12/04/18 12/05/18 12/05/18 18:59 06:59 18:59 Intake Total 599.301 523.618 154.779 Output Total 6902 478 9779 Balance -531.699 87.618 -975.221 Weight 92.3 kg Intake: IV 429 488 74 Lactated Ringers 1,000 ml 330 380 50 @ 20 mls/hr IV .Q24H [facility] Rx#:[id number] pressure bag 99 108 24 Intake, IV Titration 20.301 35.618 80.779 Amount Insulin Regular 100 unit 20.301 35.618 50.779 In Sodium Chloride 0.9% 100 ml @ Per Protocol IV .Q0M [facility] Rx#:[id number] Lactated Ringers 1,000 ml 30 @ 20 mls/hr IV .Q24H [facility] Rx#:[id number] Oral 150 Output: Chest Tube Drainage 90 110 60 Bilateral Mediastinal 20 Left Pleural 70 110 60 Urine 3955 174 9443 Other: Voiding Method Indwelling Catheter Indwelling Catheter Indwelling Catheter # Voids 1 # Bowel Movements 1 ABP, PAP, CO, CI - Last Documented Arterial Blood Pressure 109/37 Pulmonary Artery Pressure 25/14 Cardiac Output 3.8 Cardiac Index 2.5 - Constitutional General appearance: Present: cooperative, no acute distress, obese - Respiratory Details: Lung sounds essentially clear to her bilateral upper lobes, few scattered crackles to bilateral bases. Respirations are symmetrical and nonlabored. Ox ygen saturation are 95% on room air. Left pleural chest tube remains in place to low continuous wall suction -20 cm H2O. No air leak is present. Draining thin serosanguineous drainage. 110 mL output in the last 8 hours, 250 mL output since surgery. She is achieving 750 mL to 1000 mL on her incentive spirometry. - Cardiovascular Details: Regular rhythm and rate. S1 and S2 present, negative for S3, gallop or murmur. Sternum is stable. Bedside telemetry showing normal sinus rhythm heart rate 92. +1 generalized edema present. Heart hugger is in place and she is demonstrating appropriate use. Knee-high FRANCA hose and sequential compression devices in place were bilateral lower extremities. Atrial and ventricular epicardial pacemaker wires intact and grounded. Left radial arterial line in place and functioning. - Gastrointestinal Gastrointestinal Comment(s): Abdomen is soft, nontender and nondistended. Active bowel sounds all 4 abdominal quadrants. No guarding or rigidity. No organomegaly. Tolerating oral intake. Bowel movement this a.m. - Genitourinary Genitourinary Comment(s): Yang catheter for accurate I&O. Draining clear yellow urine. 220 mL output in the last 8 hours. - Integumentary Integumentary Comment(s): Skin is warm and dry. No clubbing or cyanosis is present. Midline sternal incision is clean, dry and approximated. No drainage or redness present. Gauze dressing is clean, dry and intact. Left lower extremity EVH site clean, dry and approximated. No drainage or redness is present. - Neurologic Neurologic: Present: CNII-XII intact - Musculoskeletal Musculoskeletal: Present: gait normal, strength equal bilaterally - Psychiatric Psychiatric: Present: A&O x's 3, appropriate affect, intact judgment & insight - Allied health notes Allied health notes reviewed: nursing - Labs CBC & Chem 7: 12/05/18 04:50 12/05/18 04:50 Labs: Abnormal Lab Results - Last 24 Hours (Table) 12/04/18 12/04/18 12/04/18 Range/Units 18:12 20:31 23:13 RBC (3.80-5.40) m/uL Hgb (11.4-16.0) gm/dL Hct (34.0-46.0) % Sodium (137-145) mmol/L BUN (7-17) mg/dL Glucose (74-99) mg/dL POC Glucose (mg/dL) 187 H 177 H 120 H (75-99) mg/dL Calcium (8.4-10.2) mg/dL Total Protein (6.3-8.2) g/dL Albumin (3.5-5.0) g/dL 12/04/18 12/05/18 12/05/18 Range/Units 23:55 02:03 03:03 RBC (3.80-5.40) m/uL Hgb (11.4-16.0) gm/dL Hct (34.0-46.0) % Sodium (137-145) mmol/L BUN (7-17) mg/dL Glucose (74-99) mg/dL POC Glucose (mg/dL) 104 H 114 H 170 H (75-99) mg/dL Calcium (8.4-10.2) mg/dL Total Protein (6.3-8.2) g/dL Albumin (3.5-5.0) g/dL 12/05/18 12/05/18 12/05/18 Range/Units 04:50 04:50 04:52 RBC 2.56 L (3.80-5.40) m/uL Hgb 7.6 L (11.4-16.0) gm/dL Hct 22.4 L (34.0-46.0) % Sodium 134 L (137-145) mmol/L BUN 19 H (7-17) mg/dL Glucose 132 H (74-99) mg/dL POC Glucose (mg/dL) 146 H (75-99) mg/dL Calcium 7.8 L (8.4-10.2) mg/dL Total Protein 4.5 L (6.3-8.2) g/dL Albumin 2.6 L (3.5-5.0) g/dL 12/05/18 12/05/18 12/05/18 Range/Units 06:02 08:06 09:27 RBC (3.80-5.40) m/uL Hgb (11.4-16.0) gm/dL Hct (34.0-46.0) % Sodium (137-145) mmol/L BUN (7-17) mg/dL Glucose (74-99) mg/dL POC Glucose (mg/dL) 133 H 233 H 221 H (75-99) mg/dL Calcium (8.4-10.2) mg/dL Total Protein (6.3-8.2) g/dL Albumin (3.5-5.0) g/dL 12/05/18 12/05/18 12/05/18 Range/Units 10:28 11:10 11:56 RBC (3.80-5.40) m/uL Hgb (11.4-16.0) gm/dL Hct (34.0-46.0) % Sodium (137-145) mmol/L BUN (7-17) mg/dL Glucose (74-99) mg/dL POC Glucose (mg/dL) 200 H 175 H 149 H (75-99) mg/dL Calcium (8.4-10.2) mg/dL Total Protein (6.3-8.2) g/dL Albumin (3.5-5.0) g/dL 12/05/18 12/05/18 12/05/18 Range/Units 13:05 13:58 15:32 RBC (3.80-5.40) m/uL Hgb (11.4-16.0) gm/dL Hct (34.0-46.0) % Sodium (137-145) mmol/L BUN (7-17) mg/dL Glucose (74-99) mg/dL POC Glucose (mg/dL) 130 H 138 H 184 H (75-99) mg/dL Calcium (8.4-10.2) mg/dL Total Protein (6.3-8.2) g/dL Albumin (3.5-5.0) g/dL 12/05/18 Range/Units 17:06 RBC (3.80-5.40) m/uL Hgb (11.4-16.0) gm/dL Hct (34.0-46.0) % Sodium (137-145) mmol/L BUN (7-17) mg/dL Glucose (74-99) mg/dL POC Glucose (mg/dL) 214 H (75-99) mg/dL Calcium (8.4-10.2) mg/dL Total Protein (6.3-8.2) g/dL Albumin (3.5-5.0) g/dL - Imaging and Cardiology Chest x-ray: report reviewed, image reviewed Assessment and Plan Assessment: 1. 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 2. History of recent non-STEMI. 3. Recent syncopal episodes. 4. History of known coronary artery disease and myocardial infarction with stenting to the right coronary artery. 5. Hypertension. 6. Hyperlipidemia. 7. Uncontrolled diabetes with preoperative hemoglobin A1c of 8.1%. 8. Peripheral arterial disease with previous bilateral lower extremity stent placement, infrarenal aortic stent and failed attempt at aortofemoral bypass. 9. Obesity 10. Family history of coronary artery disease 11. Osteoarthritis 12. Previous tobacco dependence with preoperative FEV1 of 81% of predicted value. Plan: 1. Continue aspirin, statin, Plavix, and beta dante. Will increase metoprol ol tartrate 50 mg by mouth twice a day. 2. Discontinue left radial arterial line. 3. Increase activity as tolerated. PT/OT and cardiac rehab following. 4. Encourage incentive spirometry use 10 times every hour while awake. 5. Bronchodilators per pulmonology. 6. Discontinue Yang catheter. 7. Will monitor daily labs and x-rays. Electrolyte replacement per protocol. 8. Pain control with current medication regimen. 9. Insulin management per primary care service. 10. GI prophylaxis with Protonix, DVT prophylaxis with subcu heparin and SCDs. 11. Discontinue left pleural chest tube. 12. Remove atrial and ventricular epicardial pacemaker wires. Bed rest for 1 hour post pacemaker wire removal. Pacemaker wires removed at 10:15 AM without incident. 13. Lasix 40 mg IV 1 now. 14. Continue lisinopril 20 mg by mouth twice a day for afterload reduction. Hold for systolic blood pressure less than or equal to 95 mmHg. 15. Transferred to [address] [place] [id number] cardiac stepdown unit. 16. More recommendations to follow based on patient's clinical course. Discharge planning in place. Anticipate discharge home within the next 24 hours. Time with Patient: Greater than 30
[2018-12-05 18:34] LABS: Glucose,Whole Blood 204 mg/dL (75-99)
[2018-12-05 19:39] LABS: Glucose,Whole Blood 220 mg/dL (75-99)
[2018-12-05 20:40] LABS: Glucose,Whole Blood 177 mg/dL (75-99)
[2018-12-05] MEDS ORDERED: METOPROLOL TARTRATE 50 MG TAB PO SCH (21:00)
[2018-12-05] MEDS: SENNOSIDES-DOCUSATE SODIUM 1 EACH TAB PO SCH (21:16)
[2018-12-05 22:09] LABS: Glucose,Whole Blood 181 mg/dL (75-99)
[2018-12-06 01:05] LABS: Glucose,Whole Blood 136 mg/dL (75-99)
[2018-12-06] MEDS: KETOROLAC 30 MG/ML 1 ML VIAL IVP SCH ×3 (01:06→12:00)
[2018-12-06] MEDS: HEPARIN SODIUM,PORCINE 5,000 UNIT/ML 1 ML VIAL SQ SCH ×2 (01:06→08:59)
[2018-12-06] MEDS: INSULIN REGULAR 100 UNIT in SODIUM CHLORIDE 0.9% 100 ML IV SCH (01:08)
[2018-12-06 02:24] LABS: Glucose,Whole Blood 109 mg/dL (75-99)
[2018-12-06 04:27] LABS: Glucose,Whole Blood 127 mg/dL (75-99)
[2018-12-06 06:14] LABS: Magnesium 1.7 mg/dL (1.6-2.3); Phosphorus 3.5 mg/dL (2.5-4.5); Potassium 4.8 mmol/L (3.5-5.1)
[2018-12-06 06:27] LABS: Glucose,Whole Blood 108 mg/dL (75-99)
[2018-12-06 06:39] LABS: Basophils % (A) 0 %; Eosinophils # (A) 0.3 k/uL (0-0.7); Eosinophils % (A) 4 %; HCT 21.7 % (34.0-46.0); HGB 7.1 gm/dL (11.4-16.0); Hypochromasia Slight; Lymphocytes # (A) 1.7 k/uL (1.0-4.8); Lymphocytes % (A) 22 %; MCH 29.4 pg (25.0-35.0); MCHC 32.8 g/dL (31.0-37.0); MCV 89.7 fL (80.0-100.0); Mean Platelet Volume 7.4; Monocytes # (A) 0.3 k/uL (0-1.0); Monocytes % (A) 4 %; Neutrophils # (A) 5.5 k/uL (1.3-7.7); Neutrophils % (A) 70 %; Platelet Count 202 k/uL (150-450); RBC 2.42 m/uL (3.80-5.40); RDW 15.4 % (11.5-15.5); WBC 7.9 k/uL (3.8-10.6)
[2018-12-06] MEDS: IPRATROPIUM-ALBUTEROL 3 ML NEB INHALATION SCH ×3 (06:59→15:56)
--- NOTE | 2018-12-06 08:10 | PN ---
PROGRESS NOTE DATE OF SERVICE: December 06, 2018 This is a 73-year-old female, postop day #4, status post 3-vessel bypass grafting. The patient seems to be doing relatively well. She has a history of multivessel coronary artery disease, benign essential hypertension, type 2 diabetes mellitus, peripheral vascular occlusive disease with previous lower extremities stenting as well as postoperative anemia requiring 1 unit of PRBCs. In addition, chronically, she has history of hypothyroidism, DJD, hyperlipidemia, and chronic nicotine dependence. She also had a recent admission or episode of syncope. The patient is doing well, as I mentioned. She is currently on room air. She is receiving insulin at 0.5 units/hours. She is not receiving any supplemental oxygen. She is postop day #4. Overall over the last 24 hours, she has shown significant improvement and vital signs have been relatively stable. She continues to do hourly use of the incentive spirometer and deep breathing coughing and clearing of secretions as recommended and suggested. Current vital signs include a temperature of 98.5, heart rate of 96, respiratory rate of 14, blood pressure 106/62, mean 76 and a saturation 96% on room air. Appears in no acute distress. No respiratory distress. No current complaint of pain. HEENT examination is grossly unremarkable. Mucous membranes are moist. NECK: Supple. Full range of motion. No adenopathy or thyromegaly. Neck veins are flat. Cardiovascular examination reveals regular rhythm and rate. S1, S2 normal. There is no S3, S4, or murmur. Lungs reveal mostly clear breath sounds. There is a few scattered rhonchi. No wheezes or crackles. Abdomen is soft. Bowel sounds are heard. Extremities are intact. There is no cyanosis, clubbing, or edema. Skin without rash. Neurologic examination was brief and nonfocal. No chest x-ray has been done as yet. Labs are reviewed. White count 7.9, hemoglobin 7.1, hematocrit 21.7, platelet count 202,000. Sodium 134, potassium 4.8, chloride 104, CO2 of 24. BUN and creatinine were 25 and 0.98. Medications are reviewed. Microbiologic studies are all negative. ASSESSMENT: 1. Postoperative day #4, status post 3-vessel bypass grafting. 2. Routine postoperative ventilator management, resolved. 3. Multivessel coronary artery disease. 4. History of benign essential hypertension. 5. Type 2 diabetes. 6. Peripheral vascular occlusive disease mostly involving the lower extremities with previous stent placement. 7. Postoperative anemia, status post 1 unit PRBCs. 8. Hypothyroidism by history. 9. Osteoarthritis. 10.History of hyperlipidemia. 11.History of syncope. 12.History of chronic nicotine dependence. PLAN: The patient is overall doing very well. She has been weaned off of oxygen. She is not receiving any supplemental fluids. She is receiving insulin at 0.5 units/hour. We will continue to follow. We encourage deep breathing, coughing, clearing of secretions and hourly use of the incentive spirometer. Medications are reviewed. Additional recommendations and suggestions are forthcoming. MMODL / IJN: [id number] /
[2018-12-06 08:51] LABS: Glucose,Whole Blood 159 mg/dL (75-99)
[2018-12-06] MEDS: PANTOPRAZOLE 40 MG/10 ML VIAL IVP SCH (08:59)
[2018-12-06] MEDS ORDERED: METOPROLOL TARTRATE 25 MG TAB PO SCH ×2 (09:00→21:00)
[2018-12-06] MEDS ORDERED: LISINOPRIL 10 MG TAB PO SCH ×2 (09:00→12:00)
[2018-12-06] MEDS: ASPIRIN 325 MG TAB PO SCH (09:00)
[2018-12-06] MEDS: ATORVASTATIN 40 MG TAB PO SCH (09:00)
[2018-12-06] MEDS: CLOPIDOGREL 75 MG TAB PO SCH (09:01)
[2018-12-06] MEDS: metFORMIN 500 MG TAB PO SCH (09:01)
[2018-12-06] MEDS: GLIMEPIRIDE 4 MG TAB PO SCH (09:03)
[2018-12-06] MEDS: LIRAGLUTIDE 1.8 MG SQ SCH (09:04)
--- NOTE | 2018-12-06 09:14 | XR ---
EXAMINATION TYPE: XR chest 2V DATE OF EXAM: 12/06/2018 COMPARISON: Prior chest x-ray 12/05/2018 HISTORY: Status post coronary artery bypass graft, chest tube removal TECHNIQUE: Frontal and lateral views of the chest are obtained. FINDINGS: There is been interval removal of the left-sided chest tube. Patient is post median sterno kingsley. Heart is stable. Blunting of the costophrenic angles is unchanged. Suspect minimal apical pneum othorax is present on the left. The aorta is dense. IMPRESSION: Status post chest tube removal, minimal apical pneumothorax suspected on the left.
[2018-12-06] MEDS: MAGNESIUM SULFATE-D5W PMX 1 GM in DEXTROSE/WATER 1 100ML.BAG IVPB SCH ×2 (09:21→10:34)
--- NOTE | 2018-12-06 10:01 | P.PN ---
Progress Note - Text Progress Note Date: 12/06/18 This is a 73-year-old female with history of severe peripheral vascular disease who recently underwent multivessel bypass surgery. Patient has progressive gradually well. Patient was anemic postoperatively requiring blood transfusion. Placement hemoglobin is 7.1. Chest x-ray shows minimal apical pneumothorax. Otherwise no evidence of any CHF or pneumonia. Patient is feeling good. No complaints of any chest pain or shortness of breath. Lungs appeared to be clear. Heart is regular. Patient is being discharged home. Patient will have follow-up with Dr. VC Flores in a week or so. Lab values showed a hemoglobin of 7.1. BUN/creatinine are stable. Chest x-ray showed minimal apical pneumothorax. GENERAL EXAM: Patient is alert and oriented and doesn't appear to be in any acute distress HEENT: Normocephalic. Normal reaction of pupils, equal size, normal range of extraocular motion. No erythema or exudates in the throat. NECK: No masses, no nuchal rigidity. CHEST: No chest wall deformity. Postsurgical LUNGS: Equal air entry with no crackles or wheeze. HEART: S1 and S2 normal with no audible mumurs or gallops. Regular rhythm, femorals equal on both sides.. ABDOMEN: No hepatosplenomegaly, normal bowel sounds, no guarding or rigidity. SKIN: No rashes CENTRAL NERVOUS SYSTEM: No focal deficits. EXTREMITIES: No cyanosis, clubbing or edema. Final impression: #1. Status post multivessel bypass surgery, clinically stable. #2. Postoperative anemia with hemoglobin of 7.1. #3. History of peripheral vascular disease. Plan: Patient is being discharged home. Follow-up with Dr. VC Flores in 1 to 2 weeks
[2018-12-06 10:44] LABS: Glucose,Whole Blood 174 mg/dL (75-99)
[2018-12-06 11:58] VITALS: TEMP 98.1
[2018-12-06 11:58] LABS: Glucose,Whole Blood 144 mg/dL (75-99)
[2018-12-06] MEDS ORDERED: ASCORBIC ACID 500 MG TAB PO SCH (12:00)
[2018-12-06] MEDS ORDERED: FERROUS SULFATE 325 MG TAB PO SCH (12:30)
--- NOTE | 2018-12-06 14:27 | P.DS ---
Providers Date of admission: 12/02/18 05:33 Expected date of discharge: 12/06/18 Attending physician: Juan Antonio Olivares Consults: 12/02/18 14:03 Consult Physician Routine Consulting Provider: Twyla Eaton Consult Reason/Comments: Train System Operator Consult: post cardiac surgery Do you want consulting provider notified?: Yes Consult Physician Routine Consulting Provider: Daryl Briceno Consult Reason/Comments: Medical management Do you want consulting provider notified?: Yes Consult Physician Routine Consulting Provider: Berto Jeffries Consult Reason/Comments: Greige Goods Inspector Consult: post cardiac surgery Do you want consulting provider notified?: Yes Primary care physician: Vaibhav Ac MD Hospital Course: FINAL DIAGNOSIS: 1. 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 2. History of recent non-STEMI. 3. Recent syncopal episodes. 4. History of known coronary artery disease and myocardial infarction with stenting to the right coronary artery. 5. Hypertension. 6. Hyperlipidemia. 7. Uncontrolled diabetes with preoperative hemoglobin A1c of 8.1%. 8. Peripheral arterial disease with previous bilateral lower extremity stent placement, infrarenal aortic stent and failed attempt at aortofemoral bypass. 9. Obesity 10. Family history of coronary artery disease 11. Osteoarthritis 12. Previous tobacco dependence with preoperative FEV1 of 81% of predicted value. 13. Hypothyroid 14. Acute postoperative blood loss anemia, an expected outcome of surgery due to cardiopulmonary bypass and hemodilution. PRINCIPAL PROCEDURE: 1. Coronary artery bypass grafting 3 vessels with left internal mammary artery to left anterior descending coronary artery, reverse greater saphenous vein graft to the obtuse marginal coronary artery and a reverse greater saphenous vein graft to the distal right coronary artery. 2. Endoscopic vein harvest, left greater saphenous vein. 3. Intraoperative epi-aortic ultrasound and transesophageal echocardiogram. HISTORY OF PRESENT ILLNESS: This is a 73-year-old female patient who is followed by Dr. Vaibhav Ac on an outpatient basis. The patient has a past medical history significant for hypertension, hyperlipidemia, diabetes mellitus type 2, history of nicotine dependence which he quit 15-20 years ago, known history of coronary artery disease with previous stent placement to her right coronary artery, peripheral arterial disease with previous stent placement, hypothyroid, osteoarthritis and family history of coronary artery disease. Recently, the patient has had feelings of fatigue, no appetite, chills and diarrhea. Subsequently on 11/24/2018 the patient had an episode of syncope while taken a shower hitting her head and injuring her left baby toe. Subsequently she pr esented to the emergency department at [facility], she had elevated troponins as high as 0.0126 and the patient was subsequent transferred to [facility] for further workup and evaluation. Her troponins peaked at 0.311 and her admission blood sugar at that time was 216. Due to her syncopal episode and elevated troponins a 2-D echocardiogram was completed which showed an overall left ventricular systolic function to be normal with an ejection fraction between 60 and 65%, mild mitral valve regurgitation and trace tricuspid valve regurgitation. Subsequently the patient underwent a cardiac catheterization which demonstrated a 50% stenosis to her left main coronary artery, a 60% stenosis to her right coronary artery, an 80% stenosis to her circumflex coronary artery and an 80% stenosis to her proximal left anterior descending coronary artery. Due to the above mentioned findings and the patient's presenting symptoms a consult was placed to Dr. Olivarse from [facility] diothoracic surgery for recommendations on myocardial revascularization surgery. Dr. Olivares met with the patient, discussed the findings on the cardiac catheterization films and recommended myocardial revascularization surgery. Risks and benefits including the STS risk scores were reviewed with the patient and her family and the patient wished to proceed with an elective right cardiovascular is a station surgery. The patient was discharged home at that time and scheduled for an elective myocardial vascularization surgery. HOSPITAL COURSE: the patient was admitted to the hospital and after obtaining consent was taken to the operating room where Dr. Juan Antonio Olivares performed an elective coronary artery bypass grafting 3 vessels with her left internal mammary artery to the left anterior descending coronary artery, a reverse greater saphenous vein graft to the obtuse marginal coronary artery and a reverse greater saphenous vein graft to the distal right coronary artery. She also underwent endoscopic vein harvest, left greater saphenous vein, intraoperative epi-aortic ultrasound and intraoperative transesophageal echocardiogram. Upon completion of the surgery the patient was transferred to the cardiovascular intensive care unit where she was recovered, monitored hemodynamically and where she progressed to cardiac rehabilitation phase 1. She was extubated in less than 24 hours, all lines, tubes and supportive drips were discontinued when appropriate and transfer orders were placed for her to go to [address] [place] [address] cardiac stepdown unit for further monitoring and rehabilitation. Due to lack of bed availability on the cardiac stepdown unit, the patient remained in the intensive care unit until discharge. Her oxygen was titrated down, she continued to work with physical, occupational and cardiac rehab, she was tolerating an oral diet, her pain was well-controlled and she was ready to be discharged home with [facility] home health care on postoperative day #4. She has received written and verbal instructions regarding her medications, activity restrictions, signs and symptoms requiring physician notification and her follow-up appointments. COMPLICATIONS: There were no postoperative, complications. CONSULTATIONS: 1. Dr. VC Flores for cardiology management 2. Dr. Eaton for pulmonary and ventilator management 3. Dr. Briceno for medical management DISCHARGE INSTRUCTIONS: 1. No driving for 4 weeks, or until physician gives their ok. 2. The patient should sleep in their own bed, no medical bed needed. 3. Stairs are not an issue. If the bedroom is upstairs, it is advised that the patient go up at night and down in the morning for the first week. Go slowly, using handrail and take 1 step at a time. 4. FRANCA hose are to be worn for 30 days or until physician discontinues. 5. Heart hugger is to be worn 100% of the time until physician discontinues.(except when showering) 6. No lifting, pushing, or pulling more than 10 pounds for 12 weeks. The physician will advise of any restriction changes. 7. The patient is expected to continue the prescribed walking program. 8. Continue pain control per as needed orders. 9. Continue with incentive spirometry and splinting/heart hugger until otherwise directed by the physician. 10. Must shower daily using liquid antibacterial soap and a separate white washcloth for each individual incision. 11. Routine sternal incision care, no ointments, lotions or powders on the incisions. 12. Please notify surgeon/nurse practitioner for temperature greater than 101F or purulent drainage from incisions 13. Prescriptions for first 30 days given per cardiac surgery service. After 30 days, all prescription refills obtained through cardiology/primary care physician. 14. The patient has been instructed to check her blood sugars before meals and at bedtime. She has been instructed to please keep a record of her blood sugar results and to take her results to her follow-up with appointment with Dr. Wakefield. HOME HEALTH SERVICES TO PROVIDE: RN SKILLED HOME CARE SERVICES FOR POST-OP SURGICAL PATIENTS WITH THE FOLLOWING: Coronary Artery Bypass Surgery (CABG), Mitral Valve Replacement/Repair ( MVR), Aortic Valve Replacement/Repair (AVR) RN TO CONTINUE EDUCATION FROM ``ROAD TO A HEALTH HEART PATIENT EDUCATION MANUAL" (GIVEN TO PATIENT IN THE HOSPITAL) MEDICATION RECONCILIATION WITH EDUCATION NEEDED ON FIRST HOME VISIT EMPHASIZE IMPORTANCE OF WEARING BREAST SUPPORT/HEART HUGGER ENCOURAGE USE OF INCENTIVE SPIROMETER 10 X EVERY HOUR WHILE AWAKE ENCOURAGE UTILIZATION OF LOWER EXTREMITY COMPRESSION STOCKINGS/FRANCA HOSE and ELEVATE LEGS ABOVE LEVEL OF HEART WHILE AT REST. ENCOURAGE AMBULATION 3-5x/day INCREASING TOLERATES, WHILE AVOID EXTREMES IN TEMPERATURE FREQUENCY: RN TO OPEN THE PATIENT WITHIN 24 HOURS OF DISCHARGE FROM THE HOSPITAL WITH TELEHEALTH INSTALLED AT [facility], RN TO VISIT 2-3 X A WEEK FOR 4 WEEKS ESTABLISHED BY PATIENT NEEDS. LABORATORY: CBC, CMP TO BE DRAWN ON THE THIRD DAY HOME, 12/09/2018 (RAN STAT) FAX RESULTS TO [phone]. TELEHEALTH PARAMETERS: WEIGHT: NOTIFY MD OF WEIGHT GAIN OF 2 LBS IN 24 HOURS OR 5 LBS IN ONE WEEK HR: NOTIFY MD OF HR <55 BPM OR HR>100 BPM BP: NOTIFY MD IF BP <90/55 OR BP>140/100 O2 SAT: NOTIFY MD IF PO2<93% ON ROOM AIR SEND TELEHEALTH REPORT TO DRILLING SUPERINTENDENT AND CARDIOVASCULAR SURGEON THE FIRST WEEK OF CARE AND THEN BI-WEEKLY. PLEASE ADDITIONALLY COMMUNICATE ANY ABNORMALS AND NEW FINDINGS TO THE SURGEONS OFFICE. Plan - Discharge Summary Discharge Rx Participant: No New Discharge Prescriptions: New Aspirin 325 mg PO DAILY tab Ferrous Sulfate [Iron (65 MG Elemental)] 325 mg PO W/LUNCH #30 tab Atorvastatin [Lipitor] 40 mg PO DAILY #30 tab Metoprolol Tartrate [Lopressor] 75 mg PO BID #90 tab Ascorbic Acid [Vitamin C] 500 mg PO DAILY@1200 tab Lisinopril [Zestril] 10 mg PO DAILY@1200 #30 tab Continue Liraglutide [Victoza 2-Luiz] 1.8 mg SQ PC-BRKFST Levothyroxine Sodium [Synthroid] 125 mcg PO PC-BRKFST Ezetimibe [Zetia] 10 mg PO DAILY Ergocalciferol [Vitamin D2 (DRISDOL)] 50,000 units PO Q14D metFORMIN HCL [Glucophage] 500 mg PO BID #0 Glimepiride [Amaryl] 6 mg PO AC-BRKFST Clopidogrel [Plavix] 75 mg PO DAILY #30 tab Discontinued Lisinopril 40 mg PO DAILY Aspirin 81 mg PO DAILY Metoprolol Succinate [Toprol XL] 100 mg PO DAILY Nitroglycerin Sl Tabs [Nitrostat] 0.4 mg SUBLINGUAL Q5M PRN #25 tab PRN Reason: Chest Pain Atorvastatin [Lipitor] 80 mg PO DAILY Isosorbide Mononitrate ER [Imdur] 15 mg PO DAILY Mupirocin 2% Oint [Bactroban 2% Oint] 1 applic NASAL BID #1 applic Discharge Medication List Ergocalciferol [Vitamin D2 (DRISDOL)] 50,000 units PO Q14D 01/31/14 [History] Ezetimibe [Zetia] 10 mg PO DAILY 01/31/14 [History] Levothyroxine Sodium [Synthroid] 125 mcg PO PC-BRKFST 01/31/14 [History] Liraglutide [Victoza 2-Luiz] 1.8 mg SQ -BRKFST 01/31/14 [History] metFORMIN HCL [Glucophage] 500 mg PO BID #0 03/16/18 [Rx] Glimepiride [Amaryl] 6 mg PO AC-BRKFST 11/24/18 [History] Ascorbic Acid [Vitamin C] 500 mg PO DAILY@1200 tab 12/06/18 [Rx] Aspirin 325 mg PO DAILY tab 12/06/18 [Rx] Atorvastatin [Lipitor] 40 mg PO DAILY #30 tab 12/06/18 [Rx] Clopidogrel [Plavix] 75 mg PO DAILY #30 tab 12/06/18 [Rx] Ferrous Sulfate [Iron (65 MG Elemental)] 325 mg PO W/LUNCH #30 tab 12/06/18 [Rx] Lisinopril [Zestril] 10 mg PO DAILY@1200 #30 tab 12/06/18 [Rx] Metoprolol Tartrate [Lopressor] 75 mg PO BID #90 tab 12/06/18 [Rx] Follow up Appointment(s)/Referral(s): Twyla Eaton MD [STAFF PHYSICIAN] - 12/12/18 2:45 pm Ann Rodriguez NPC [Nurse Practitioner] - 12/09/18 2:30 pm Vaibhav Ac MD [Primary Care Provider] - 1 Week (Dr. Ac's office will call the patient with a follow-up appointment.) [facility], [NON-STAFF] - 1-2 Days Juan Antonio Olivares MD [STAFF PHYSICIAN] - 01/06/19 10:45 am Morena Wakefield MD [STAFF PHYSICIAN] - 12/14/18 9:00 am Leola Flores MD [STAFF PHYSICIAN] - 1 Week (Dr. Flores's office will call the patient with a follow-up appointment.) Ambulatory/Diagnostic Orders: Complete Blood Count w/diff [LAB.AMB] Time Frame: 12/09/18, Facility: [facility], Location: Laboratory [facility] Comprehensive Metabolic Panel [LAB.AMB] Time Frame: 12/09/18, Facility: [facility], Location: Laboratory [facility] Activity/Diet/Wound Care/Special Instructions: DISCHARGE INSTRUCTIONS: 1. No driving for 4 weeks, or until physician gives their ok. 2. The patient should sleep in their own bed, no medical bed needed. 3. Stairs are not an issue. If the bedroom is upstairs, it is advised that the patient go up at night and down in the morning for the first week. Go slowly, using handrail and take 1 step at a time. 4. FRANCA hose are to be worn for 30 days or until physician discontinues. 5. Heart hugger is to be worn 100% of the time until physician discontinues.(except when showering) 6. No lifting, pushing, or pulling more than 10 pounds for 12 weeks. The physician will advise of any restriction changes. 7. The patient is expected to continue the prescribed walking program. 8. Continue pain control per as needed orders. 9. Continue with incentive spirometry and splinting/heart hugger until otherwise directed by the physician. 10. Must shower daily using liquid antibacterial soap and a separate white washcloth for each individual incision. 11. Routine sternal incision care, no ointments, lotions or powders on the incisions. 12. Please notify surgeon/nurse practitioner for temperature greater than 101F or purulent drainage from incisions 13. Prescriptions for first 30 days given per cardiac surgery service. After 30 days, all prescription refills obtained through cardiology/primary care physician. 14. The patient has been instructed to check her blood sugars before meals and at bedtime. She has been instructed to please keep a record of her blood sugar results and to take her results to her follow-up with appointment with Dr. Wakefield HOME HEALTH SERVICES TO PROVIDE: RN SKILLED HOME CARE SERVICES FOR POST-OP SURGICAL PATIENTS WITH THE FOLLOWING: Coronary Artery Bypass Surgery (CABG), Mitral Valve Replacement/Repair ( MVR), Aortic Valve Replacement/Repair (AVR) RN TO CONTINUE EDUCATION FROM ``ROAD TO A HEALTH HEART PATIENT EDUCATION MANUAL" (GIVEN TO PATIENT IN THE HOSPITAL) MEDICATION RECONCILIATION WITH EDUCATION NEEDED ON FIRST HOME VISIT EMPHASIZE IMPORTANCE OF WEARING BREAST SUPPORT/HEART HUGGER ENCOURAGE USE OF INCENTIVE SPIROMETER 10 X EVERY HOUR WHILE AWAKE ENCOURAGE UTILIZATION OF LOWER EXTREMITY COMPRESSION STOCKINGS/FRANCA HOSE and ELEVATE LEGS ABOVE LEVEL OF HEART WHILE AT REST. ENCOURAGE AMBULATION 3-5x/day INCREASING TOLERATES, WHILE AVOID EXTREMES IN TEMPERATURE FREQUENCY: RN TO OPEN THE PATIENT WITHIN 24 HOURS OF DISCHARGE FROM THE HOSPITAL WITH TELEHEALTH INSTALLED AT [facility], RN TO VISIT 2-3 X A WEEK FOR 4 WEEKS ESTABLISHED BY PATIENT NEEDS. LABORATORY: CBC, CMP TO BE DRAWN ON THE THIRD DAY HOME, 12/09/2018 (RAN STAT) FAX RESULTS TO [phone]. TELEHEALTH PARAMETERS: WEIGHT: NOTIFY MD OF WEIGHT GAIN OF 2 LBS IN 24 HOURS OR 5 LBS IN ONE WEEK HR: NOTIFY MD OF HR <55 BPM OR HR>100 BPM BP: NOTIFY MD IF BP <90/55 OR BP>140/100 O2 SAT: NOTIFY MD IF PO2<93% ON ROOM AIR SEND TELEHEALTH REPORT TO DRILLING SUPERINTENDENT AND CARDIOVASCULAR SURGEON THE FIRST WEEK OF CARE AND THEN BI-WEEKLY. PLEASE ADDITIONALLY COMMUNICATE ANY ABNORMALS AND NEW FINDINGS TO THE SURGEONS OFFICE. Discharge Disposition: HOME WITH HOME HEALTH SERVICES
[2018-12-06 15:07] VITALS: BP 90/47; PULSE 94; RESP 18
== END 2018-12-06 17:06 | disposition home health service (06) | DRG 235 ==
LOC: 2ORMAIN 05:33 → 2SICU 14:04
PROVIDERS: ADMIT Hospitalist; ATTEND Surgery
PROC: 06BQ4ZZ Excision of Left Saphenous Vein, Percutaneous Endoscopic Approach (ICD-10-PCS; 2018-12-02)
PROC: 5A1221Z Performance of Cardiac Output, Continuous (ICD-10-PCS; 2018-12-02)
PROC: B24BZZ4 Ultrasonography of Heart with Aorta, Transesophageal (ICD-10-PCS; 2018-12-02)
PROC: 02100Z9 Bypass Coronary Artery, One Artery from Left Internal Mammary, Open Approach (ICD-10-PCS; principal; 2018-12-02 08:00)
PROC: 021109W Bypass Coronary Artery, Two Arteries from Aorta with Autologous Venous Tissue, Open Approach (ICD-10-PCS; 2018-12-02 08:00)
DX: I25.10 Atherosclerotic heart disease of native coronary artery without angina pectoris (principal); I21.4 Non-ST elevation (NSTEMI) myocardial infarction; D62 Acute posthemorrhagic anemia; J98.11 Atelectasis; E11.51 Type 2 diabetes mellitus with diabetic peripheral angiopathy without gangrene; E11.65 Type 2 diabetes mellitus with hyperglycemia; I25.2 Old myocardial infarction; E03.9 Hypothyroidism, unspecified; E66.9 Obesity, unspecified; E78.5 Hyperlipidemia, unspecified; H40.9 Unspecified glaucoma; I10 Essential (primary) hypertension; M19.91 Primary osteoarthritis, unspecified site; H26.9 Unspecified cataract; Z79.02 Long term (current) use of antithrombotics/antiplatelets; Z79.82 Long term (current) use of aspirin; Z79.84 Long term (current) use of oral hypoglycemic drugs; Z79.890 Hormone replacement therapy; Z79.899 Other long term (current) drug therapy; Z87.891 Personal history of nicotine dependence; Z95.5 Presence of coronary angioplasty implant and graft; Z68.37 Body mass index [BMI] 37.0-37.9, adult; Z88.5 Allergy status to narcotic agent; Z82.49 Family history of ischemic heart disease and other diseases of the circulatory system
CPT/HCPCS: 71045; 71046; 80048; 80053; 82330; 82805; 83735; 84100; 85025; 85027; 85520; 85610; 85730; 86850; 86891; 86900; 86901; 86920; 94002; 94640

== ENCOUNTER 2019-11-12 23:26 | Observation (INO) | payer MEDICARE ==
[2019-11-12] MEDS ORDERED: SODIUM CHLORIDE 0.9% 1,000 ML IV STA (23:31)
[2019-11-12] MEDS ORDERED: MORPHINE SULFATE 4 MG/ML SYRINGE IV STA (23:31)
--- NOTE | 2019-11-12 23:39 | ED ---
Chest Pain HPI - General Chief Complaint: Chest Pain Stated Complaint: Poss STEMI Time Seen by Provider: 11/12/19 23:31 Source: EMS Mode of arrival: EMS Limitations: no limitations - History of Present Illness Initial Comments: Sangeeta is a 74-year-old female with a history of known coronary artery disease status post CABG in November 2018. Patient presents the emergency department today via EMS for evaluation of chest pain radiating to her back and shoulders. Pain began approximately an hour prior to arrival, EMS was contacted patient was treated with fentanyl and nitro with minimal improvement in her chest pain. Denies any associated lightheadedness shortness of breath or diaphoresis. Patient reports with her previous cardiac event she had only shortness of breath with no chest pain and underwent a CABG procedure. - Related Data Home Medications Medication Instructions Recorded Confirmed Ergocalciferol [Vitamin D2 50,000 units PO Q14D 01/31/14 12/02/18 (DRISDOL)] Ezetimibe [Zetia] 10 mg PO DAILY 01/31/14 12/02/18 Levothyroxine Sodium [Synthroid] 125 mcg PO PC-BRKFST 01/31/14 12/02/18 Liraglutide [Victoza 2-Luiz] 1.8 mg SQ PC-BRKFST 01/31/14 12/02/18 Glimepiride [Amaryl] 6 mg PO -BRKFST 11/24/18 12/02/18 Previous Rx's Medication Instructions Recorded metFORMIN HCL [Glucophage] 500 mg PO BID #0 03/16/18 Ascorbic Acid [Vitamin C] 500 mg PO DAILY@1200 tab 12/06/18 Aspirin 325 mg PO DAILY tab 12/06/18 Atorvastatin [Lipitor] 40 mg PO DAILY #30 tab 12/06/18 Clopidogrel [Plavix] 75 mg PO DAILY #30 tab 12/06/18 Ferrous Sulfate [Iron (65 MG 325 mg PO W/LUNCH #30 tab 12/06/18 Elemental)] Lisinopril [Zestril] 10 mg PO DAILY@1200 #30 tab 12/06/18 Metoprolol Tartrate [Lopressor] 75 mg PO BID #90 tab 12/06/18 Allergies Allergy/AdvReac Type Severity Reaction Status Date / Time hydromorphone HCl Allergy RESPIRATORY Verified 11/12/19 23:31 [From Dilaudid] DEPRESSION Review of Systems ROS Statement: Those systems with pertinent positive or pertinent negative responses have been documented in the HPI. ROS Other: All systems not noted in ROS Statement are negative. EKG Findings - EKG Comments: EKG Findings:: EKG was obtained due to complaint of chest pain, EKG was obtained at 2333, rate is 83 rhythm is sinus there is a normal axis, there are normal intervals, DC 168, QRS 82, QTc is 467 there are no acute [address] elevations or depressions, Q waves noted in the inferior leads. When this EKG was compared to previous the slight ST elevations in 2 and 3 with her previous are no longer present Q waves now present. Past Medical History Past Medical History: Coronary Artery Disease (CAD), Chest Pain / Angina, Diabetes Mellitus, Eye Disorder, Hyperlipidemia, Hypertension, Myocardial Infarction (NM), Myocardial Infarction (non Q-wave), Osteoarthritis (OA), Thyroid Disorder, Vascular Disorder Additional Past Medical History / Comment(s): 2000 HX ASHD, peripheral arterial disease, intermittent claudication involving infra renal aorta and rt and lt common iliac arteries (had stents palced), bilat cataracts, glaucoma L eye with stent. Last Myocardial Infarction Date:: History of Any Multi-Drug Resistant Organisms: None Reported Past Surgical History: Adenoidectomy, Heart Catheterization, Heart Catheterization With Stent, Tonsillectomy, Tubal Ligation Additional Past Surgical History / Comment(s): EXP. LAP 02/2012, STENT TO HEART X1, INFRARENAL AORTA STENT, STENTS TO RIGHT AND LEFT COMMONI ILLIAC ARTERIES. AORTOGRAM WITH RUNOFF 02/02/14 @ [facility] Past Anesthesia/Blood Transfusion Reactions: No Reported Reaction Additional Past Anesthesia/Blood Transfusion Reaction / Comment(s): pt states she has never had a blood transfusion Date of Last Stent Placement:: 2000 Past Psychological History: No Psychological Hx Reported Smoking Status: Former smoker Past Alcohol Use History: None Reported Past Drug Use History: None Reported - Past Family History Mother Family Medical History: Dementia Additional Family Medical History / Comment(s): HEART PROBLEMS Father Family Medical History: Coronary Artery Disease (CAD), Myocardial Infarction (NM) Additional Family Medical History / Comment(s): Her father at age 79 with a myocardial infarction. General Exam - General Exam Comments Initial Comments: Physical Exam GENERAL: Patient is well-developed and well-nourished. Patient is nontoxic and well- hydrated and is in no distress. HENT: Normocephalic, Atraumatic. EYES: PERRL, EOMI PULMONARY: Unlabored respirations. No audible rales rhonchi or wheezing was noted. CARDIOVASCULAR: There is a regular rate and rhythm without any murmurs gallops or rubs. well healed sternotomy incision ABDOMEN: Soft and nontender with normal bowel sounds. SKIN: Skin is clear with no lesions or rashes and otherwise unremarkable. : Deferred NEUROLOGIC: Patient is alert and oriented x3. Moving all extremities spontaneously MUSCULOSKELETAL: Normal extremities with adequate strength and full range of motion. No lower extremity swelling or edema. No calf tenderness. PSYCHIATRIC: Normal psychiatric evaluation. Limitations: no limitations Course Vital Signs 11/12/19 11/13/19 23:28 00:59 Temperature 98.7 F Pulse Rate 86 Respiratory 18 Rate Blood Pressure 174/80 165/69 O2 Sat by Pulse 98 Oximetry Chest Pain MDM - [facility] Patient was seen and evaluated immediately upon arrival the emergency department extent 74-year-old female no coronary artery disease status post CABG last year present in with severe chest pain History and physical exam concerning for cardiac etiology of chest pain, EKG is nonischemic, does have Q waves consistent with previous ischemic event Labs resulted in no acute abnormalities CT angiogram was obtained given the patient's history of vasculopathy and persistent chest pain, CT angiogram resulted with no signs of dissection or aneurysm. No acute findings Patient will be admitted for further management, turning of troponins and evaluation by cardiology Disposition Clinical Impression: Unstable angina Disposition: ADMITTED IP TO THIS HOSP Condition: Serious Is patient prescribed a controlled substance at d/c from ED?: No Referrals: Vaibhav Ac MD [Primary Care Provider] - 1-2 days
[2019-11-12 23:50] LABS: Basophils # (A) 0.1 k/uL (0-0.2); Basophils % (A) 1 %; Eosinophils # (A) 0.5 k/uL (0-0.7); Eosinophils % (A) 4 %; HCT 37.1 % (34.0-46.0); HGB 12.2 gm/dL (11.4-16.0); Lymphocytes % (A) 17 %; MCH 27.9 pg (25.0-35.0); MCHC 32.8 g/dL (31.0-37.0); MCV 85.2 fL (80.0-100.0); Mean Platelet Volume 7.5; Monocytes # (A) 0.5 k/uL (0-1.0); Monocytes % (A) 4 %; Neutrophils # (A) 8.4 k/uL (1.3-7.7); Neutrophils % (A) 72 %; Platelet Count 287 k/uL (150-450); RBC 4.36 m/uL (3.80-5.40); RDW 13.8 % (11.5-15.5); WBC 11.7 k/uL (3.8-10.6)
[2019-11-13 00:01] LABS: Albumin 3.8 g/dL (3.5-5.0); Calcium 9.1 mg/dL (8.4-10.2); Magnesium 1.6 mg/dL (1.6-2.3); Potassium 3.7 mmol/L (3.5-5.1); Total Bilirubin 0.5 mg/dL (0.2-1.3); Total Protein 6.7 g/dL (6.3-8.2)
[2019-11-13 00:08] LABS: INR 0.9 (<1.2); Prothrombin Time 9.4 sec (9.0-12.0)
[2019-11-13 00:10] LABS: Partial Thromboplastin Time 20.9 sec (22.0-30.0)
--- NOTE | 2019-11-13 00:16 | XR ---
EXAMINATION TYPE: XR chest 2V DATE OF EXAM: 11/12/2019 COMPARISON: 12/12/2018 HISTORY: Chest pain TECHNIQUE: FINDINGS: There are sternal wires. There is no heart failure nor confluent pneumonic infiltrate. Ther e are chest leads. Costophrenic angles are clear. Bony thorax is intact. IMPRESSION: No active cardiopulmonary disease. There is clearing of the pleural reaction and atelectasis and infi ltrate left lung base compared to old exam.
[2019-11-13] MEDS ORDERED: MORPHINE SULFATE 4 MG/ML SYRINGE IVP STA (00:50)
--- NOTE | 2019-11-13 01:46 | CT ---
EXAMINATION TYPE: CT angio thor/abd pel aorta DATE OF EXAM: 11/13/2019 COMPARISON: HISTORY: Patient presents with chest pain. CT DLP: 1385 mGycm Automated exposure control for dose reduction was used. CONTRAST: Performed with IV Contrast, patient injected with 100mL mL of Isovue 370. Multiple axial sections were obtained from the thoracic inlet to the floor the pelvis without and sub sequently with intravenous contrast. There are 3-D post processed images. There is mild interstitial fibrotic changes in the mid and lower lung gardiner. There is subsegmental a telectasis at the lung bases. Thoracic aorta is atheromatous. There is no aneurysm or dissection. The re is dense coronary artery calcification. There are are no hilar masses. There is no mediastinal momo nopathy. There is hiatal hernia. There are small calcified gallstones. There is no pancreatic mass. Spleen appears normal. Stomach is intact. There is no adrenal mass. Kidneys show satisfactory contrast opacification. There is no hydronephrosi s. Ureters are not dilated. There is no retroperitoneal adenopathy. There are multiple sigmoid divert icula. There is no sign of diverticulitis. Appendix appears normal. There is no evidence of abdominal aortic aneurysm. There is arterial flow in the celiac artery and goodman perior mesenteric artery. There is arterial flow in both renal arteries. There is arterial flow in th e iliac and femoral arteries bilaterally. There is significant plaque formation in the lower abdomina l aorta. There is aortoiliac stent noted. The stents appear patent. I see no filling defects in the pulmonary arteries. There are air bubbles in the urinary bladder. There appears to be intramural air on the posterior wal l of the urinary bladder. Thoracic and lumbar vertebra appear intact. There is no compression fracture. Bony pelvis is intact. IMPRESSION: Aortoiliac endograft appears patent. Atherosclerotic vascular disease. No evidence of aortic aneurysm or dissection. Sigmoid diverticulosis. Intramural air bubbles in the urinary bladder could relate to emphysematous cystitis. No evidence of pulmonary embolism. Pulmonary interstitial fibrotic changes.
[2019-11-13] MEDS ORDERED: MORPHINE SULFATE 4 MG/ML SYRINGE IV PRN (02:08)
[2019-11-13] MEDS: NITROGLYCERIN OINT 1 INCH/GM PACKET TOPICAL SCH ×4 (06:55→23:04)
[2019-11-13 07:11] LABS: Glucose,Whole Blood 197 mg/dL (75-99)
[2019-11-13] MEDS: INSULIN ASPART (NovoLOG) 100 UNIT/ML VIAL SQ SCH ×5 (07:47→20:55)
--- NOTE | 2019-11-13 09:39 | P.CRDCN ---
History of Present Illness History of present illness: This is Dr. Ty dictating a consult on this patient The patient was interviewed and examined by me IMPRESSION / ASSESSMENT: 74-year-old female presenting with bilateral chest discomfort radiating to her neck and to the upper back. CT angiography did not reveal any aortic dissection 2 cardiac enzymes are normal. ECGs compared to last year show persistence of a [address] elevation inferolaterally She is still in a lot of pain and nitroglycerin does not help Known coronary artery disease status post coronary artery bypass grafting Status post His bundle pacing line status post aortic stent graft Peripheral vascular disease Pleuritic chest discomfort with mild elevation in white count and a leftward shift PLAN: Discontinue Nitropaste Repeat twelve-lead ECG during Chest discomfort Repeat troponin Hemoglobin A1c and lipid panel Maximize medical treatment of possible This chest discomfort appears to be musculoskeletal in nature HPI Patient presented to the hospital with chest discomfort bilateral wound to the neck and to the upper back She underwent a CT of the abdomen and chest, angiography No evidence for aortic dissection patent abdominal aortic graft The pain started at rest and gets worse when she takes a deep breath. When I asked her to take a deep breath she was distinctly uncomfortable The pain is fairly constant the only thing that relieved it was morphine Nitropaste has not had any impact 2 serial Prince at enzymes are normal ECG shows [address] elevation inferolaterally ROS: No fever chills or rigors, no cough, phlegm or expectoration, no nausea, vomiting or diarrhea, no hematuria, dysuria, no musculoskeletal complaints, no strokes or seizures, no skin lesions. EXAMINATION: Afebrile, pulse rate 97 205, blood pressure 153/77, 166/65 mmHg in breath sounds are reduced on account of reduced inspiratory effort on account of pleuritic chest discomfort bilateral Heart sounds are soft normal Abdomen is soft nontender Extremity warm Patient is resting comfortably in bed no respiratory distress REVIEW OF LABS, ECG & MEDICAL DATA Twelve-lead ECG shows sinus rhythm normal [place] narrow QRS and early repolarization abnormality of 1 mm inferolaterally Cardiac enzymes 2 are normal White count 11.7 thousand, increased neutrophil count, Past Medical History Past Medical History: Coronary Artery Disease (CAD), Chest Pain / Angina, Diabetes Mellitus, Eye Disorder, Hyperlipidemia, Hypertension, Myocardial Infarction (MS), Myocardial Infarction (non Q-wave), Osteoarthritis (OA), Thyroid Disorder, Vascular Disorder Additional Past Medical History / Comment(s): 2000 HX ASHD, peripheral arterial disease, intermittent claudication involving infra renal aorta and rt and lt common iliac arteries (had stents palced), bilat cataracts, glaucoma L eye with stent. Last Myocardial Infarction Date:: History of Any Multi-Drug Resistant Organisms: None Reported Past Surgical History: Adenoidectomy, Heart Catheterization, Heart Catheterization With Stent, Tonsillectomy, Tubal Ligation Additional Past Surgical History / Comment(s): EXP. LAP 02/2012, STENT TO HEART X1, INFRARENAL AORTA STENT, STENTS TO RIGHT AND LEFT COMMONI ILLIAC ARTERIES. AORTOGRAM WITH RUNOFF 02/02/14 @ [facility] Past Anesthesia/Blood Transfusion Reactions: No Reported Reaction Additional Past Anesthesia/Blood Transfusion Reaction / Comment(s): pt states she has never had a blood transfusion Date of Last Stent Placement:: 2000 Past Psychological History: No Psychological Hx Reported Smoking Status: Former smoker Past Alcohol Use History: None Reported Additional Past Alcohol Use History / Comment(s): STARTED SMOKING AGE 28 (1964), QUIT 2003, SMOKED 2PPD Past Drug Use History: None Reported - Past Family History Mother Family Medical History: Dementia Additional Family Medical History / Comment(s): HEART PROBLEMS Father Family Medical History: Coronary Artery Disease (CAD), Myocardial Infarction (MS) Additional Family Medical History / Comment(s): Her father at age 79 with a myocardial infarction. Medications and Allergies Home Medications Medication Instructions Recorded Confirmed Type Ergocalciferol [Vitamin D2 50,000 units PO Q14D 01/31/14 11/13/19 History (DRISDOL)] Ezetimibe [Zetia] 10 mg PO DAILY 01/31/14 11/13/19 History Liraglutide [Victoza 2-Luiz] 1.8 mg SQ PC-BRKFST 01/31/14 11/13/19 History Glimepiride [Amaryl] 6 mg PO AC-BRKFST 11/24/18 11/13/19 History Aspirin 325 mg PO DAILY tab 12/06/18 11/13/19 Rx Atorvastatin [Lipitor] 40 mg PO DAILY #30 tab 12/06/18 11/13/19 Rx Clopidogrel [Plavix] 75 mg PO DAILY #30 tab 12/06/18 11/13/19 Rx Lisinopril [Zestril] 10 mg PO DAILY@1200 #30 tab 12/06/18 11/13/19 Rx Empagliflozin [Jardiance] 25 mg PO DAILY 11/13/19 11/13/19 History Levothyroxine Sodium [Synthroid] 112 mcg PO DAILY 11/13/19 11/13/19 History Metoprolol Tartrate [Lopressor] 100 mg PO BID 11/13/19 11/13/19 History metFORMIN HCL [metFORMIN HCL ER] 500 mg PO BID 11/13/19 11/13/19 History Allergies Allergy/AdvReac Type Severity Reaction Status Date / Time hydromorphone HCl Allergy RESPIRATORY Verified 11/13/19 07:24 [From Dilaudid] DEPRESSION Physical Exam Vitals: Vital Signs Temp Pulse Pulse Resp BP BP Pulse Ox 11/13/19 07:32 98.3 F 105 H 18 153/77 93 L 11/13/19 05:00 100 18 144/70 99 11/13/19 04:25 97 18 166/65 98 11/13/19 02:03 98 18 166/78 96 11/13/19 00:59 165/69 11/12/19 23:28 98.7 F 86 18 174/80 98 Intake and Output 11/12/19 11/13/19 11/13/19 22:59 06:59 14:59 Other: Weight 78.925 kg 78.925 kg Results 11/12/19 23:35 11/12/19 23:35 Cardiac Enzymes 11/12/19 11/12/19 11/13/19 Range/Units 23:35 23:35 05:54 AST 23 (14-36) U/L Troponin I <0.012 0.016 (0.000-0.034) ng/mL Coagulation 11/12/19 Range/Units 23:35 PT 9.4 (9.0-12.0) sec APTT 20.9 L (22.0-30.0) sec CBC 11/12/19 Range/Units 23:35 WBC 11.7 H (3.8-10.6) k/uL RBC 4.36 (3.80-5.40) m/uL Hgb 12.2 (11.4-16.0) gm/dL Hct 37.1 (34.0-46.0) % Plt Count 287 (150-450) k/uL Comprehensive Metabolic Panel 11/12/19 Range/Units 23:35 Sodium 138 (137-145) mmol/L Potassium 3.7 (3.5-5.1) mmol/L Chloride 102 (98-107) mmol/L Carbon Dioxide 25 (22-30) mmol/L BUN 16 (7-17) mg/dL Creatinine 0.88 (0.52-1.04) mg/dL Glucose 194 H (74-99) mg/dL Calcium 9.1 (8.4-10.2) mg/dL AST 23 (14-36) U/L ALT 17 (4-34) U/L Alkaline Phosphatase 96 (38-126) U/L Total Protein 6.7 (6.3-8.2) g/dL Albumin 3.8 (3.5-5.0) g/dL Current Medications Generic Name Dose Route Start Last Admin Trade Name Freq PRN Reason Stop Dose Admin Aspirin 325 mg 11/14/19 09:00 Aspirin PO DAILY [facility] Insulin Aspart 0 unit 11/13/19 07:30 11/13/19 07:47 Novolog SQ 2 unit ACHS [facility] Administration Protocol Morphine Sulfate 4 mg 11/13/19 02:08 11/13/19 05:55 Morphine Sulfate (Inj) IV 4 mg Q4H PRN Administration Chest Pain Nitroglycerin 1 inch 11/13/19 06:00 11/13/19 06:55 Nitro-Bid Oint TOPICAL 1 inch Q6HR [facility] Administration Intake and Output 11/12/19 11/13/19 11/13/19 22:59 06:59 14:59 Other: Weight 78.925 kg 78.925 kg Patient Weight 11/14/19 06:59 Weight 78.925 kg 11/12/19 23:35 11/12/19 23:35
[2019-11-13 11:07] LABS: Cholesterol 131 mg/dL (<200); HDL Cholesterol 43 mg/dL (40-60); LDL Cholesterol,Calculated 76 mg/dL (0-99); Triglycerides 61 mg/dL (<150)
[2019-11-13 11:47] LABS: Glucose,Whole Blood 202 mg/dL (75-99)
[2019-11-13] MEDS ORDERED: HYDROcodone/APAP 5-325MG 1 EACH TAB PO PRN (11:47)
[2019-11-13] MEDS ORDERED: ACETAMINOPHEN TAB 500 MG TAB PO PRN (14:24)
[2019-11-13] MEDS ORDERED: ALPRAZolam 0.25 MG TAB PO PRN (14:24)
[2019-11-13] MEDS ORDERED: TEMAZEPAM 15 MG CAP PO PRN (14:24)
--- NOTE | 2019-11-13 14:47 | CONS ---
CONSULTATION DATE OF SERVICE: 11/13/2019 REASON FOR CONSULTATION: Atypical chest pain. HISTORY OF PRESENT ILLNESS: The patient is a 74-year-old pleasant white female who came to the emergency room late last night complaining of severe chest pain that started around 10 pm last night. Pain is mostly in the substernal area, radiating to the neck and to the back of shoulders. The pain is continuous, severe and pleuritic in nature. She denies any heartburn, reports no dysphagia, odynophagia and never had these symptoms in the past. She was seen by Cardiology, had her troponins done which were negative. EKGs were negative. She denies any heartburn. She reports no abdominal pain. No nausea, no vomiting. She denies any new medications that were given to her recently. PAST MEDICAL HISTORY: Significant for coronary artery disease, status post CABG several years ago, history of hypertension, hyperlipidemia, hypercholesteremia, diabetes mellitus. MEDICATIONS: At home include Lipitor, Plavix, aspirin, Zestril, Lopressor, vitamin C, Glucophage, Synthroid, Drisdol, Victoza and Amaryl. ALLERGIES: To DILAUDID. SOCIAL HISTORY: No smoking. No alcohol use. FAMILY HISTORY: Unremarkable. PAST SURGICAL HISTORY: Cardiac catheterization, adenoidectomy, CABG, tubal ligation, tonsillectomy, and stents in the peripheral iliac arteries. FAMILY HISTORY: Mother has dementia and father has coronary artery disease and AL. REVIEW OF SYSTEMS: CARDIOPULMONARY: She does complain of chest pain, but no shortness of breath. GENITOURINARY: No dysuria or hematuria. MUSCULOSKELETAL: Unremarkable. SKIN: Unremarkable. ENDOCRINE: Unremarkable. PSYCHIATRIC: Unremarkable. NEUROLOGY: Unremarkable. ENT/VISION: Unremarkable. CONSTITUTIONAL: No recent weight loss. No fever, chills, night sweats. PHYSICAL EXAMINATION: She appears comfortable, in no apparent distress. VITAL SIGNS: Stable. Blood pressure is 130/74, pulse rate 100, temperature 98.9. HEENT: Examination unremarkable. Conjunctivae are pink. Sclerae nonicteric. Oral cavity no lesions. NECK: No JVD or lymph node enlargement. CHEST: Clear to auscultation. HEART: Regular rate and rhythm. ABDOMEN: Soft, it was nontender, nondistended. Bowel sounds are positive. No organomegaly. EXTREMITIES: No pedal edema. SKIN: No rashes. NEUROLOGIC: Alert and oriented x3. No focal deficits. LABS: WBC 11.7, hemoglobin 12.2, platelets normal. Basic metabolic panel is within normal limits. ALT, AST, T-bilirubin and alkaline phosphatase are normal. She did have a chest CT that did not show any evidence of aortic dissection. IMPRESSION: 1. Atypical chest pain that started since last night at 10 pm. Cardiology evaluated the patient and so far the EKGs and troponins are negative. CT of the chest was negative. At this time, it is unclear if she has some musculoskeletal causes of chest pain or may have a component of gastroesophageal reflux disease. Regarding the symptoms, though it appears unlikely. 2. History of coronary disease, status post coronary artery bypass grafting several years ago. 3. History of diabetes mellitus. 4. Hypertension. 5. Hyperlipidemia. RECOMMENDATION: 1. Continue with empiric Protonix 40 mg twice daily. 2. Continue with the rest of the medications as per Cardiology. 3. No plans for any endoscopy intervention at the present time. 4. Repeat labs in the morning and will follow with you during her hospital stay. Thank you for this consultation. MMODL / IJN: [id number] /
[2019-11-13 15:57] VITALS: RESP 18
--- NOTE | 2019-11-13 16:11 | HP ---
HISTORY AND PHYSICAL CHIEF COMPLAINT: Chest pain. HISTORY OF PRESENT ILLNESS: This 74-year-old woman with a past medical history of multiple medical problems including CAD, stent; history of diabetes type 2, hypertension, hyperlipidemia, history of myocardial infarction, history of DJD being followed by Dr. Vaibhav Ac in the outpatient setting is complaining of chest pain. The pain was felt in the anterior part of the chest and also radiating to the neck and also some to the back and which was increasing with respirations. The patient was treated with nitroglycerin with some relief. There is no history of sweating or palpitations. Patient came to [facility]. The troponins are negative. The EKG showed ST-T changes and patient admitted for further evaluation. Cardiology evaluation in progress. There is no history of fever, rigors. No history of headache, loss of consciousness, seizures at this time. The patient was also complaining of abdominal discomfort with diarrhea following food intake as well as some epigastric burning also. PAST MEDICAL HISTORY: CAD, stent; history of diabetes type 2, hypertension, hyperlipidemia, myocardial infarction. MEDICATIONS ARE: 1. Metformin 500 mg p.o. b.i.d. 2. Zetia 10 mg p.o. daily. 3. Jardiance 25 mg b.i.d. 4. Lopressor 100 mg p.o. b.i.d. 5. Zestril 10 mg p.o. daily. 6. Victoza 1.8 p.o. daily. 7. Synthroid 100 mcg p.o. daily. 8. Amaryl 6 mg p.o. with breakfast. 9. Plavix 75 mg p.o. daily. 10.Lipitor 40 mg p.o. daily. 11.Aspirin 320 mg p.o. daily. 12.Vitamin D2 50,000 q.14 days.. ALLERGIES: DILAUDID. FAMILY HISTORY: History of dementia, heart problems in the family. SOCIAL HISTORY: Previous history of smoking. No history of current smoking or alcohol intake. No history of substance abuse. REVIEW OF SYSTEMS: ENT No history of diminished hearing or vision. CARDIOVASCULAR As mentioned earlier. RESPIRATORY As mentioned earlier. GI As mentioned earlier. No dysuria. NERVOUS SYSTEM No numbness or weakness. ALLERGY/IMMUNOLOGY No asthma or hayfever. MUSCULOSKELETAL As mentioned earlier. HEMATOLOGY/ONCOLOGY Negative. ENDOCRINE Diabetes. SKIN Negative. CONSTITUTIONAL No history of fever or weight loss. PSYCHIATRY As mentioned earlier. PHYSICAL EXAMINATION: Alert and oriented x3. Pulse 100, blood pressure 130/70, respirations 17, temperature 98 degrees, pulse ox 94% on room air. HEENT: Conjunctivae normal. Oral mucosa moist. NECK: No jugular venous distention. No lymph node enlargement. CARDIOVASCULAR: S1, S2. RESPIRATORY: Diminished breath sounds at the bases. No rhonchi, no crackles. ABDOMEN: Soft, nontender. Minimal discomfort on palpation in the epigastrium. Otherwise, no mass palpable. LEGS: No edema, no swelling. NERVOUS SYSTEM: Higher functions mentioned earlier. Moves all four limbs. No focal deficits. LYMPHATICS: No lymph node in neck or axilla. SKIN: No rash. JOINTS: No active deforming arthropathy. LABS: WBC 7.2, hemoglobin 12.2. APTT 20.9. Glucose 194. ASSESSMENT: 1. Chest pain possible unstable angina. 2. Rule out gastroesophageal reflux disease. 3. Diabetes type 2. 4. Increased WBC. 5. History of coronary artery disease, stent. 6. Hypertension. 7. Hyperlipidemia. 8. History of myocardial infarction. 9. History of degenerative joint disease. 10.Hypothyroidism. 11.History of peripheral vascular disease. 12.History of intermittent claudication. 13.History of exploratory laparotomy. 14.Infrarenal aortic stent and stent to the right and left common iliac vessels. 15.Remote history of nicotine dependence. 16.Obesity with body mass of 31.8. RECOMMENDATIONS AND DISCUSSION: In this 74-year-old woman who presented with multiple complex medical issues, we will monitor the patient closely continue, continue the current management and symptomatic treatment. Otherwise, antiplatelet agent, acute coronary syndrome protocol, 2-D echo with Doppler. The pain has some pleuritic component. The patient also has significant GI symptoms. I would recommend GI and cardiology evaluation. Continue to monitor. Prognosis guarded. A 2D echo has been ordered. Resume the home medications. Further recommendations to follow. Discussed with the patient's family. MMODL / IJN: [id number] /
[2019-11-13 17:01] LABS: Glucose,Whole Blood 144 mg/dL (75-99)
[2019-11-13 20:37] LABS: Glucose,Whole Blood 181 mg/dL (75-99)
[2019-11-13] MEDS: metFORMIN 500 MG TAB PO SCH (20:55)
[2019-11-13] MEDS: PANTOPRAZOLE 40 MG/10 ML VIAL IVP SCH (20:55)
[2019-11-13] MEDS: METOPROLOL TARTRATE 50 MG TAB PO SCH (20:55)
[2019-11-13 22:39] LABS: Hemoglobin A1C 7.9 % (4.0-6.0)
[2019-11-14] MEDS: NITROGLYCERIN OINT 1 INCH/GM PACKET TOPICAL SCH ×4 (05:05→23:28)
[2019-11-14] MEDS: LEVOTHYROXINE 112 MCG TAB PO SCH (05:29)
[2019-11-14 06:43] LABS: Basophils % (A) 0 %; Eosinophils # (A) 0.2 k/uL (0-0.7); Eosinophils % (A) 2 %; HCT 37.1 % (34.0-46.0); HGB 12.4 gm/dL (11.4-16.0); Hypochromasia Slight; Lymphocytes # (A) 1.8 k/uL (1.0-4.8); Lymphocytes % (A) 20 %; MCH 29.1 pg (25.0-35.0); MCHC 33.3 g/dL (31.0-37.0); MCV 87.4 fL (80.0-100.0); Mean Platelet Volume 7.7; Monocytes # (A) 0.5 k/uL (0-1.0); Monocytes % (A) 5 %; Neutrophils # (A) 6.2 k/uL (1.3-7.7); Neutrophils % (A) 70 %; Platelet Count 275 k/uL (150-450); RBC 4.24 m/uL (3.80-5.40); RDW 13.7 % (11.5-15.5); WBC 8.9 k/uL (3.8-10.6)
[2019-11-14 07:02] LABS: Glucose,Whole Blood 151 mg/dL (75-99)
[2019-11-14 07:03] LABS: Potassium 4.1 mmol/L (3.5-5.1)
[2019-11-14] MEDS: ASPIRIN 325 MG TAB PO SCH (08:32)
[2019-11-14] MEDS: PANTOPRAZOLE 40 MG/10 ML VIAL IVP SCH (08:32)
[2019-11-14] MEDS: ATORVASTATIN 40 MG TAB PO SCH (08:32)
[2019-11-14] MEDS: METOPROLOL TARTRATE 50 MG TAB PO SCH ×2 (08:32→20:58)
[2019-11-14] MEDS: CLOPIDOGREL 75 MG TAB PO SCH (08:32)
[2019-11-14] MEDS: INSULIN ASPART (NovoLOG) 100 UNIT/ML VIAL SQ SCH ×4 (08:32→20:58)
[2019-11-14] MEDS: metFORMIN 500 MG TAB PO SCH ×2 (08:32→20:58)
[2019-11-14] MEDS: GLIMEPIRIDE 2 MG TAB PO SCH (08:33)
[2019-11-14] MEDS: NON FORMULARY DRUG (Liraglutide [Victoza 2-Pak] 1.8 MG) SQ SCH (08:33)
[2019-11-14] MEDS: EZETIMIBE 10 MG TAB PO SCH (08:33)
[2019-11-14] MEDS: NON FORMULARY DRUG (Empagliflozin [Jardiance] 25 MG) PO SCH (08:34)
[2019-11-14 11:31] LABS: Glucose,Whole Blood 82 mg/dL (75-99)
[2019-11-14] MEDS: LISINOPRIL 10 MG TAB PO SCH (12:02)
--- NOTE | 2019-11-14 12:30 | ECHOF ---
Referral Reason:Chest Pain MEASUREMENTS -------- HEIGHT: 157.5 cm WEIGHT: 78.9 kg BP: IVSd: 1.3 cm (0.6 - 1.1) LVIDd: 3.6 cm (3.9 - 5.3) LVPWd: 1.3 cm (0.6 - 1.1) IVSs: 1.7 cm LVIDs: 2.2 cm LVPWs: 1.6 cm RVIDd: 2.5 cm (< 3.3) Ao Diam: 2.7 cm (2.0 - 3.7) LA Diam: 3.5 cm (2.7 - 3.8) AV Cusp: 1.3 cm (1.5 - 2.6) EPSS: 0.6 cm MV E Bennie: 1.28 m/s MV DecT: 134 ms MV A Bennie: 1.41 m/s MV E/A Ratio: 0.91 AV maxP.03 mmHg AV meanP.09 mmHg RAP: 5.00 mmHg RVSP: 33.95 mmHg MV EF SLOPE: 61.55 mm/s (70 - 150) MV EXCURSION: 13.19 mm (> 18.000) FINDINGS -------- Resting tachycardia (HR>100bpm). This was a technically difficult study with suboptimal views. The left ventricular size is normal. There is mild concentric left ventricular hypertrophy. Overa ll left ventricular systolic function is normal with, an EF between 55 - 60 %. Normal LAP. Grade 1 Diastolic Dysfunction. The right ventricle is normal in size. The left atrial size is normal. The right atrial size is normal. 5.0mg of Lumason was utilized for enhancement of images Aortic valve is trileaflet and is mildly thickened. There is mild aortic valve sclerosis. Peak/me an gradient across the Aortic Valve is 12.03mmHg / 7.09mmHg. The mitral valve is normal. The mitral valve leaflets are mildly thickened. Mild mitral regurgita tion is present. The tricuspid valve appears structurally normal. Mild tricuspid regurgitation present. Right vent ricular systolic pressure is normal at < 35 mmHg. There is no pulmonic regurgitation present. The aortic root size is normal. IVC Not well visulized. There is a small, generalized pericardial effusion present. CONCLUSIONS -------- 1. Resting tachycardia (HR>100bpm). 2. This was a technically difficult study with suboptimal views. 3. The left ventricular size is normal. 4. There is mild concentric left ventricular hypertrophy. 5. Overall left ventricular systolic function is normal with, an EF between 55 - 60 %. 6. Normal LAP. Grade 1 Diastolic Dysfunction. 7. The right ventricle is normal in size. 8. The left atrial size is normal. 9. The right atrial size is normal. 10. 5.0mg of Lumason was utilized for enhancement of images 11. Aortic valve is trileaflet and is mildly thickened. 12. There is mild aortic valve sclerosis. 13. Peak/mean gradient across the Aortic Valve is 12.03mmHg / 7.09mmHg. 14. The mitral valve is normal. 15. The mitral valve leaflets are mildly thickened. 16. Mild mitral regurgitation is present. 17. The tricuspid valve appears structurally normal. 18. Mild tricuspid regurgitation present. 19. Right ventricular systolic pressure is normal at < 35 mmHg. 20. There is no pulmonic regurgitation present. 21. The aortic root size is normal. 22. IVC Not well visulized. 23. There is a small, generalized pericardial effusion present. ACID MAKER: Ann Sanderson RDCS
[2019-11-14 16:32] LABS: Glucose,Whole Blood 134 mg/dL (75-99)
--- NOTE | 2019-11-14 17:29 | PN ---
PROGRESS NOTE DATE OF DICTATION: 11/14/2019 This patient is a 74-year-old pleasant white female, admitted to the hospital with pleuritic chest pain that started about 2 days ago. She had cardiac workup done. So far troponins, EKGs were all negative. CT of the chest did not show any aortic aneurysm. In the meantime, she was started on empiric Protonix 40 mg twice daily for possible GERD causing her symptoms; however, the patient denies any heartburn. She reports no abdominal discomfort. No nausea or vomiting. Today she still has some chest pain, but it has significantly improved. Remains on Protonix 40 mg twice daily. PHYSICAL EXAMINATION: Appears comfortable. No apparent distress. VITAL SIGNS: Stable. Blood pressure is 142/81, pulse rate 95, temperature 97.9. HEENT examination unremarkable. Conjunctivae pink. Sclerae anicteric. Oral cavity no lesions. NECK: No JVD or lymph node enlargement. CHEST: Clear to auscultation. HEART: Regular rate and rhythm. ABDOMEN: Soft. Bowel sounds are positive. No organomegaly. EXTREMITIES: No pedal edema. SKIN: No rashes. NEUROLOGIC: Alert and oriented x3. No focal deficits. LABS: Labs from today show WBC 8.9, hemoglobin 12.4, platelets normal. Basic metabolic panel is within normal limits. IMPRESSION: Atypical chest pain, possibly musculoskeletal in etiology. Cannot rule out gastroesophageal reflux disease causing her symptoms. On empiric Protonix 40 mg twice daily, her symptoms are gradually improving. Cardiac workup has been negative. RECOMMENDATIONS: 1. Continue with Protonix 40 mg twice a day. 2. Advance diet as tolerated. 3. She can be discharged home today or tomorrow with an outpatient followup in 3-4 weeks. Thank you for this consultation. MMODL / IJN: [id number] /
[2019-11-14 20:19] LABS: Glucose,Whole Blood 139 mg/dL (75-99)
[2019-11-14] MEDS: PANTOPRAZOLE 40 MG TABLET PO SCH (20:58)
--- NOTE | 2019-11-14 21:53 | PN ---
PROGRESS NOTE DATE OF SERVICE: 11/14/2019 This 74-year-old woman who was admitted with chest pain is being closely monitored. Myocardial infarction has been ruled out. Cardiology and Gastroenterology are following the patient closely. No chest pain. No palpitations. Cardiology recommended maximized medical treatment and a 2D echo with Doppler was also done which showed ejection fraction about 55% to 60%. No fever. PHYSICAL EXAMINATION: Alert and oriented x3. Pulse is 89, blood pressure 168/80, respiration 18, temperature 97.2, pulse ox 93% on room air. HEENT: Conjunctivae normal. NECK: No jugular venous distention. CARDIOVASCULAR SYSTEM: S1, S2 muffled. RESPIRATORY SYSTEM: Breath sounds diminished at the bases. A few scattered rhonchi and crackles. ABDOMEN: Soft, non-tender. LEGS: No edema. No swelling. NERVOUS SYSTEM: No focal deficit. LABS: ESR is 47. Otherwise, blood glucose 151. C-reactive protein is 192. ASSESSMENT: 1. Chest pain, possible pericarditis. 2. Myocardial infarction ruled out. 3. Possible gastroesophageal reflux disease. 4. Diabetes mellitus, type 2. 5. Increased white count. 6. History of coronary artery disease, stent. 7. Hypertension. 8. Hyperlipidemia. 9. History of myocardial infarction. 10.History of degenerative joint disease. 11.Hypothyroidism. 12.History of peripheral vascular disease. 13.Intermittent claudication. 14.History of exploratory laparotomy. 15.Infrarenal aortic stent and stent to the right and left common iliac vessels. 16.Remote history of nicotine dependence. 17.Obesity with body mass index of 31.8. RECOMMENDATIONS AND DISCUSSION: I recommend to continue current medications, continue with symptomatic treatment. Closely follow with Cardiology. Guarded prognosis. See orders for further recommendations. Gastroenterology and cardiology input appreciated. MMODL / IJN: [id number] /
[2019-11-15] MEDS: NITROGLYCERIN OINT 1 INCH/GM PACKET TOPICAL SCH ×2 (05:23→11:24)
[2019-11-15] MEDS: LEVOTHYROXINE 112 MCG TAB PO SCH (05:30)
[2019-11-15 06:34] LABS: Glucose,Whole Blood 256 mg/dL (75-99)
[2019-11-15 07:19] LABS: Basophils % (A) 0 %; Eosinophils # (A) 0.5 k/uL (0-0.7); Eosinophils % (A) 6 %; HCT 38.4 % (34.0-46.0); HGB 12.4 gm/dL (11.4-16.0); Lymphocytes # (A) 1.3 k/uL (1.0-4.8); Lymphocytes % (A) 16 %; MCH 27.5 pg (25.0-35.0); MCHC 32.2 g/dL (31.0-37.0); MCV 85.4 fL (80.0-100.0); Mean Platelet Volume 7.4; Monocytes # (A) 0.3 k/uL (0-1.0); Monocytes % (A) 4 %; Neutrophils # (A) 5.8 k/uL (1.3-7.7); Neutrophils % (A) 72 %; Platelet Count 245 k/uL (150-450); RDW 13.6 % (11.5-15.5)
[2019-11-15 07:33] LABS: Calcium 9.1 mg/dL (8.4-10.2); Potassium 4.2 mmol/L (3.5-5.1)
[2019-11-15] MEDS: NON FORMULARY DRUG (Empagliflozin [Jardiance] 25 MG) PO SCH (07:53)
[2019-11-15] MEDS: NON FORMULARY DRUG (Liraglutide [Victoza 2-Pak] 1.8 MG) SQ SCH (07:57)
[2019-11-15] MEDS: ATORVASTATIN 40 MG TAB PO SCH (08:00)
[2019-11-15] MEDS: METOPROLOL TARTRATE 50 MG TAB PO SCH (08:00)
[2019-11-15] MEDS: metFORMIN 500 MG TAB PO SCH (08:00)
[2019-11-15] MEDS: CLOPIDOGREL 75 MG TAB PO SCH (08:00)
[2019-11-15] MEDS: PANTOPRAZOLE 40 MG TABLET PO SCH (08:00)
[2019-11-15] MEDS: ASPIRIN 325 MG TAB PO SCH (08:00)
[2019-11-15] MEDS: EZETIMIBE 10 MG TAB PO SCH (08:01)
[2019-11-15] MEDS: INSULIN ASPART (NovoLOG) 100 UNIT/ML VIAL SQ SCH (08:01)
[2019-11-15] MEDS: GLIMEPIRIDE 2 MG TAB PO SCH (08:01)
[2019-11-15 11:22] VITALS: BP 138/78; PULSE 78; TEMP 97.7
[2019-11-15 11:33] LABS: Glucose,Whole Blood 143 mg/dL (75-99)
[2019-11-15] MEDS: LISINOPRIL 10 MG TAB PO SCH (12:23)
--- NOTE | 2019-11-15 16:12 | P.DS ---
Providers Date of admission: 11/13/19 02:08 Attending physician: Tammi Gibbs Consults: 11/13/19 02:08 Consult Physician Urgent Consulting Provider: Ivan Carlton Consult Reason/Comments: chest pain, known CAD Do you want consulting provider notified?: Yes, Notify in am 11/13/19 11:49 Consult Physician Routine Consulting Provider: Hugo Phillips Consult Reason/Comments: Abdominal discomfort, diarrhea Do you want consulting provider notified?: Yes Primary care physician: Vaibhav Ac MD Hospital Course: Patient was admitted for chest pain which appears to be submitted to gastritis and the is being discharged on 40 mg twice a day of Prilosec. Patient was ruled out acute current syndromes. No evidence of pericarditis but this can be some musculoskeletal pain as well for which patient was asked to take Tylenol and patient will be discharged today. PHYSICAL EXAMINATION: GENERAL: The patient is alert and oriented x3, not in any acute distress. Well developed, well nourished. HEENT: Pupils are round and equally reacting to light. EOMI. No scleral icterus. No conjunctival pallor. Normocephalic, atraumatic. No pharyngeal erythema. No thyromegaly. CARDIOVASCULAR: S1 and S2 present. No murmurs, rubs, or gallops. PULMONARY: Chest is clear to auscultation, no wheezing or crackles. ABDOMEN: Soft, nontender, nondistended, normoactive bowel sounds. No palpable organomegaly. MUSCULOSKELETAL: No joint swelling or deformity. EXTREMITIES: No cyanosis, clubbing, or pedal edema. NEUROLOGICAL: Gross neurological examination did not reveal any focal deficits. SKIN: No rashes. The rest of the medical problems and hospitalization course please refer to Dr. Gibbs's dictation from yesterday Patient Condition at Discharge: Serious Plan - Discharge Summary New Discharge Prescriptions: New Pantoprazole [Protonix] 40 mg PO BID #60 tablet.dr Candelaria Liraglutide [Victoza 2-Luiz] 1.8 mg SQ PC-BRKFST Ezetimibe [Zetia] 10 mg PO DAILY Ergocalciferol [Vitamin D2 (DRISDOL)] 50,000 units PO Q14D Glimepiride [Amaryl] 6 mg PO AC-BRKFST Aspirin 325 mg PO DAILY tab Atorvastatin [Lipitor] 40 mg PO DAILY #30 tab Lisinopril [Zestril] 10 mg PO DAILY@1200 #30 tab Clopidogrel [Plavix] 75 mg PO DAILY #30 tab Metoprolol Tartrate [Lopressor] 100 mg PO BID Levothyroxine Sodium [Synthroid] 112 mcg PO DAILY Empagliflozin [Jardiance] 25 mg PO DAILY metFORMIN HCL [metFORMIN HCL ER] 500 mg PO BID Discharge Medication List Ergocalciferol [Vitamin D2 (DRISDOL)] 50,000 units PO Q14D 01/31/14 [History] Ezetimibe [Zetia] 10 mg PO DAILY 01/31/14 [History] Liraglutide [Victoza 2-Luiz] 1.8 mg SQ -BRKT 01/31/14 [History] Glimepiride [Amaryl] 6 mg PO -KT 11/24/18 [History] Aspirin 325 mg PO DAILY tab 12/06/18 [Rx] Atorvastatin [Lipitor] 40 mg PO DAILY #30 tab 12/06/18 [Rx] Clopidogrel [Plavix] 75 mg PO DAILY #30 tab 12/06/18 [Rx] Lisinopril [Zestril] 10 mg PO DAILY@1200 #30 tab 12/06/18 [Rx] Empagliflozin [Jardiance] 25 mg PO DAILY 11/13/19 [History] Levothyroxine Sodium [Synthroid] 112 mcg PO DAILY 11/13/19 [History] Metoprolol Tartrate [Lopressor] 100 mg PO BID 11/13/19 [History] metFORMIN HCL [metFORMIN HCL ER] 500 mg PO BID 11/13/19 [History] Pantoprazole [Protonix] 40 mg PO BID #60 tablet. 11/15/19 [Rx] Follow up Appointment(s)/Referral(s): Vaibhav Ac MD [Primary Care Provider] - 3 Days Ally Ferguson MD [STAFF PHYSICIAN] - 4 Weeks (f/u 3-4 weeks) Leola Flores MD [STAFF PHYSICIAN] - 11/24/19 2:45 pm (follow up at the main office.) Patient Instructions/Handouts: Chest Pain (DC) Discharge Disposition: HOME SELF-CARE
[2019-11-26] MEDS ORDERED: ERGOCALCIFEROL 50,000 UNIT CAP PO SCH (09:00)
== END 2019-11-15 12:35 | disposition home or self-care (01) ==
LOC: SUPCPDRO 23:26 → EC 23:26 → 1SOBS 11-13 02:08
PROVIDERS: ADMIT Hospitalist; ATTEND Hospitalist
DX: R07.89 Other chest pain (principal); M54.9 Dorsalgia, unspecified; M25.511 Pain in right shoulder; M25.512 Pain in left shoulder; M54.2 Cervicalgia; R10.9 Unspecified abdominal pain; R19.7 Diarrhea, unspecified; E11.9 Type 2 diabetes mellitus without complications; D72.829 Elevated white blood cell count, unspecified; I25.10 Atherosclerotic heart disease of native coronary artery without angina pectoris; Z95.5 Presence of coronary angioplasty implant and graft; I10 Essential (primary) hypertension; E78.5 Hyperlipidemia, unspecified; I25.2 Old myocardial infarction; M19.90 Unspecified osteoarthritis, unspecified site; E03.9 Hypothyroidism, unspecified; I73.9 Peripheral vascular disease, unspecified; E66.9 Obesity, unspecified; R07.81 Pleurodynia; E78.00 Pure hypercholesterolemia, unspecified; H40.9 Unspecified glaucoma; I70.90 Unspecified atherosclerosis; K57.30 Diverticulosis of large intestine without perforation or abscess without bleeding; R93.41 Abnormal radiologic findings on diagnostic imaging of renal pelvis, ureter, or bladder; J84.10 Pulmonary fibrosis, unspecified; J98.11 Atelectasis; Z68.31 Body mass index [BMI] 31.0-31.9, adult; Z98.890 Other specified postprocedural states; Z95.828 Presence of other vascular implants and grafts; Z95.820 Peripheral vascular angioplasty status with implants and grafts; Z87.891 Personal history of nicotine dependence; Z95.1 Presence of aortocoronary bypass graft; Z79.899 Other long term (current) drug therapy; Z79.890 Hormone replacement therapy; Z79.84 Long term (current) use of oral hypoglycemic drugs; Z79.82 Long term (current) use of aspirin; Z79.02 Long term (current) use of antithrombotics/antiplatelets; Z88.5 Allergy status to narcotic agent; Z86.69 Personal history of other diseases of the nervous system and sense organs; Z81.8 Family history of other mental and behavioral disorders; Z82.49 Family history of ischemic heart disease and other diseases of the circulatory system; Z90.89 Acquired absence of other organs; Z98.51 Tubal ligation status; Z98.42 Cataract extraction status, left eye; Z98.41 Cataract extraction status, right eye; Z96.89 Presence of other specified functional implants
CPT/HCPCS: 93005 ×2; 96361 ×2; 96375; 96376 ×2; 96374; 99285; 36415; 83880; 80061; 80053; 80048 ×2; 85652; 83735; 84484 ×2; 85025 ×3; 85610; 85730; 86140; 83036; 71046; 71275; 74174; G0378 ×3; C8929; J2270 ×2; C9113 ×2; Q9950; Q9967; 93306

== ENCOUNTER → 2019-12-11 | Outpatient (CLI) | payer MEDICARE | END | disposition home or self-care (01) | CPT/HCPCS: 36415; 80051; 82565; 84520; 85027 ==

== ENCOUNTER → 2019-12-18 | Day surgery (SDC) | payer MEDICARE ==
[2019-12-13 14:03] VITALS: BMI 31.1
[~2019-12-18] MED LIST changes: -ALBUMIN HUMAN 25% 50 ML IV ONE; -ALBUMIN HUMAN 5% 500 ML IVPB ONE; +ALPRAZolam 0.25 MG TAB PO PRN; +ALPRAZolam 0.5 MG TAB PO PRN; -ATORVASTATIN 10 MG TAB PO ONE; -CALCIUM CHLORIDE 100 MG/ML 10 ML SYRINGE IV ONE; -CHLORHEXIDINE GLUCONATE 15 ML CUP MUCOUS MEM ONE; -CLEVIDIPINE BUTYRATE 25 MG in EMPTY BAG 1 BAG IV ONE; -DEXTROSE 5% IN WATER 1,000 ML with POTASSIUM CHLORIDE 110 MEQ, MAGNESIUM SULFATE 16 MEQ... IV ONE; -DEXTROSE 5% IN WATER 1,000 ML with POTASSIUM CHLORIDE 25 MEQ, SODIUM CHLORIDE 2.5MEQ/ML... IRRIGATION ONE; -HEPARIN SODIUM 1,000 UN/ML (10ML VL) IV ONE; -HEPARIN SODIUM,PORCINE 5,000 UNIT in SODIUM CHLORIDE 0.9% 500 ML 500 ML IV ONE; +INSULIN ASPART (NovoLOG) 100 UNIT/ML VIAL SQ SCH; -INSULIN REGULAR 100 UNIT in SODIUM CHLORIDE 0.9% 100 ML IV ONE; +IOPAMIDOL-370 125ML BTL INJ ONE; -LACTATED RINGERS 1,000 ML IV ONE; +LIDOCAINE 1% INJ 10MG/ML (20 ML MDV) ONE; +LIDOCAINE 1% INJ 10MG/ML (20 ML MDV) SQ ONE; -MAGNESIUM SULFATE MG 500 MG/ML IV ONE; -MANNITOL 25% 12.5 GM/50 ML VIAL IV ONE; -METOPROLOL TARTRATE 12.5 MG TAB PO ONE; +MIDAZOLAM 2 MG/2 ML VIAL IVP ONE; -NITROGLYCERIN SL TABS 0.4 MG TAB SUBLINGUAL ONE; +NITROGLYCERIN SL TABS 0.4 MG TAB SUBLINGUAL PRN; -NITROGLYCERIN-D5W PMX 25 MG/250 ML BTL IV ONE; -NITROGLYCERIN-D5W PMX 50 MG in DEXTROSE/WATER 1 250ML.BAG IV ONE; -NOREPINEPHRINE 4 MG in SODIUM CHLORIDE 0.9% 250 ML IV ONE; -PAPAVERINE 360 MG in SODIUM CHLORIDE 0.9% 90 ML IV ONE; -PHENYLEPHRINE 10 MG/ML VIAL IV ONE; -PHENYLEPHRINE 40 MG in SODIUM CHLORIDE 0.9% 250 ML IV ONE; -PROPOFOL 1,000 MG/100 ML VIAL IV ONE; -PROTAMINE SULFATE 10 MG/ML 25 ML VIAL IV ONE; -PROTAMINE SULFATE 250 MG in EMPTY BAG 1 BAG IV ONE; +RX INFO: IV CONTRAST WAS GIVEN 1 EACH MISC MISCELLANE PRN; -SODIUM BICARB 8.4% 50 ML SYR (1 MEQ/ML) IV ONE; -SODIUM CHLORIDE 0.9% 1,000 ML IV ONE; +SODIUM CHLORIDE 0.9% 1,000 ML IV SCH; +SODIUM CHLORIDE 0.9% 1,000 ML in EMPTY BAG 1 BAG IV ONE; -TRANEXAMIC ACID 2,000 MG in SODIUM CHLORIDE 0.9% 80 ML IV ONE; -ceFAZolin 1,000 MG in SODIUM CHLORIDE 0.9% IRRIGATIO 1,000 ML IRRIGATION ONE; -ceFAZolin 2,000 MG in SODIUM CHLORIDE 0.9% 30 ML IVPB ONE
[2019-12-18 09:35] VITALS: RESP 16; TEMP 97.9
[2019-12-18 09:43] LABS: Glucose,Whole Blood 213 mg/dL (75-99)
--- NOTE | 2019-12-18 11:00 | P.PCN ---
Date of Procedure: 12/18/19 Operative Findings: CARDIAC CATHETERIZATION PERFORMING PHYSICIAN: Berto Jeffries MD, RPVI PROCEDURE PERFORMED: 1. Selective right and left coronary angiogram 2. HURT to LAD angiogram 3. SVG to LCx angiogram 4. SVG to RCA angiogram 5. Left heart catheterization INDICATION: This is a very pleasant 74-year-old female patient who sees Dr. VC Flores in the office on regular basis with a past medical history significant for coronary artery disease and status post coronary artery that is grafting in 2018 where at that point she received HURT into LAD, SVG to OM, and SVG to RCA, as well as peripheral arterial disease and prior bilateral iliac stenting, was seen recently by Dr. Flores in the office for further evaluation of chest discomfort concerning for angina. Because of that a heart catheterization was advised COMPLICATION: None APPROACH: Right common femoral artery LEVEL OF SEDATION: Moderate with sedation length of 28 minutes PROCEDURE DESCRIPTION: After obtaining an informed consent, the patient was brought to cardiac laboratory mechanical technician. Local anesthesia was performed using lidocaine subcutaneously. The right common femoral artery was cannulated using Seldinger technique, the guidewire passed easily, following that we advanced a 6 Malian sheath dilator assembly, the wire and dilator were removed and sheath was flushed. Selective right and left coronary angiogram using a 6-Malian JR4 and JL catheters. HURT into LAD angiogram and SVG to LCx angiogram was performed using JR4 catheter. The SVG to RCA angiogram was performed using multipurpose catheter. Following that we did left heart catheterization using 6-Malian pigtail catheter. The procedure was completed there was no complication. SELECTIVE CORONARY ANGIOGRAM: The right coronary artery: Is chronically occluded by the ostium Left main: Calcified. It does have intermediate to severe disease. The left circumflex: The ostial LCx from the left main has a critical lesion appeared to be in the range of 90-95%. Then the proximal LCx by the bifurcation of OM1 has a lesion appears to be in the range of 60-70%. OM1 appeared to have competitive flow from the graft. The distal left circumflex become a moderate caliber vessel. It does have no significant disease. The left anterior descending artery: Is a large caliber vessel and appears to be calcified vessel as well. The proximal LAD appears to have intermediate disease only. It gives rises into a large diagonal branch. The large diagonal branch appears to have mild disease only. The LAD after that is subtotally occluded. CORONARY BYPASSES ANGIOGRAM: The HURT to LAD: Is patent The SVG to OM: Is patent The SVG to RCA: This patent HEMODYNAMICS: The LVEDP was 10 mmHg without significant gradient across aortic valve CONCLUSION: Severe triple-vessel coronary artery disease Patent HURT to LAD Patent SVG to OM-1. OM-2 is a medium caliber vessel appears to be unprotected. Patent SVG to RCA POSTPROCEDURE MANAGEMENT: 1. Consider conservative medical approach at this point and maximize medical treatment. 2. If the patient continues to be symptomatic in spite of that, I with consider PCI of the ostial LCx which has critical lesion to opened the flow to OM2.
[2019-12-18 12:32] VITALS: PULSE 86
[2019-12-18 13:21] VITALS: BP 164/74
== END ==
LOC: CATHCVL 09:17
PROVIDERS: ATTEND Internal Medicine Interventional Cardiology
DX: I25.110 Atherosclerotic heart disease of native coronary artery with unstable angina pectoris (principal); E78.5 Hyperlipidemia, unspecified; I25.2 Old myocardial infarction; I70.213 Atherosclerosis of native arteries of extremities with intermittent claudication, bilateral legs; E11.51 Type 2 diabetes mellitus with diabetic peripheral angiopathy without gangrene; I10 Essential (primary) hypertension; E78.00 Pure hypercholesterolemia, unspecified; I70.8 Atherosclerosis of other arteries; F17.210 Nicotine dependence, cigarettes, uncomplicated; Z95.1 Presence of aortocoronary bypass graft; Z79.899 Other long term (current) drug therapy; Z79.82 Long term (current) use of aspirin; Z79.02 Long term (current) use of antithrombotics/antiplatelets; Z95.5 Presence of coronary angioplasty implant and graft; Z79.84 Long term (current) use of oral hypoglycemic drugs; Z79.890 Hormone replacement therapy; Z88.5 Allergy status to narcotic agent; Z95.828 Presence of other vascular implants and grafts
CPT/HCPCS: 93459; C1769 ×3; C1894; J2250; J2001; Q9967

== ENCOUNTER 2021-07-20 03:55 | Emergency (ER) | payer MEDICARE ==
[2021-07-20 04:03] VITALS: RESP 18
[2021-07-20] MEDS ORDERED: SODIUM CHLORIDE 0.9% 1,000 ML IV STA (04:09)
[2021-07-20] MEDS ORDERED: PANTOPRAZOLE 40 MG/10 ML VIAL IVP STA (04:12)
[2021-07-20] MEDS ORDERED: MAG HYDROX/AL HYDROX/SIMETH 30 ML, HYOSCYAMINE ELIXIR 10 ML PO STA ×2 (04:12)
[2021-07-20] MEDS ORDERED: ONDANSETRON 4 MG/2 ML VIAL IVP STA (04:12)
--- NOTE | 2021-07-20 04:12 | ED ---
Chest Pain HPI - General Chief Complaint: Chest Pain Stated Complaint: Chest Pain Time Seen by Provider: 07/20/21 03:58 Source: patient, RN notes reviewed, old records reviewed Mode of arrival: ambulatory Limitations: no limitations - History of Present Illness Initial Comments: This is a 75-year-old female presented for evaluation of gastric reflux acid reflux chest pain improved with nitro. He does have history of high blood pressure high cholesterol diabetes and prior TN. MD Complaint: chest pain -: minutes(s) Onset: during rest Pain Location: substernal Pain Radiation: none Severity: mild Severity scale (1-10): 3 Quality: tightness Consistency: constant Improves With: nothing Worsens With: nothing Anginal Symptoms: nausea Other Symptoms: cough Treatments Prior to Arrival: none - Related Data Home Medications Medication Instructions Recorded Confirmed Ergocalciferol [Vitamin D2 50,000 units PO Q14D 01/31/14 12/13/19 (DRISDPHU)] Ezetimibe [Zetia] 10 mg PO DAILY 01/31/14 12/18/19 Liraglutide [Victoza 2-Luiz] 1.8 mg SQ PC-BRKFST 01/31/14 12/18/19 Glimepiride [Amaryl] 6 mg PO AC-BRKFST 11/24/18 12/18/19 Empagliflozin [Jardiance] 25 mg PO DAILY 11/13/19 12/18/19 Levothyroxine Sodium [Synthroid] 112 mcg PO DAILY 11/13/19 12/18/19 Metoprolol Tartrate [Lopressor] 100 mg PO BID 11/13/19 12/18/19 metFORMIN HCL [metFORMIN HCL ER] 500 mg PO BID 11/13/19 12/18/19 Aspirin 81 mg PO DAILY 12/13/19 12/18/19 lisinopriL [Zestril] 10 mg PO DAILY 12/13/19 12/18/19 Previous Rx's Medication Instructions Recorded Atorvastatin [Lipitor] 40 mg PO DAILY #30 tab 12/06/18 Clopidogrel [Plavix] 75 mg PO DAILY #30 tab 12/06/18 Pantoprazole [Protonix] 40 mg PO BID #60 tablet. 11/15/19 Allergies Allergy/AdvReac Type Severity Reaction Status Date / Time hydromorphone HCl Allergy RESPIRATORY Verified 07/20/21 04:03 [From Dilaudid] DEPRESSION Review of Systems ROS Statement: Those systems with pertinent positive or pertinent negative responses have been documented in the HPI. ROS Other: All systems not noted in ROS Statement are negative. EKG Findings - EKG Comments: EKG Findings:: EKG is sinus rhythm 80, CO 164 QRS 92 QTC 479 Past Medical History Past Medical History: Coronary Artery Disease (CAD), Chest Pain / Angina, Diabetes Mellitus, Eye Disorder, Hyperlipidemia, Hypertension, Myocardial Infarction ([place]), Myocardial Infarction (non Q-wave), Osteoarthritis (OA), Thyroid Disorder, Vascular Disorder Additional Past Medical History / Comment(s): 2000 HX ASHD, peripheral arterial disease, intermittent claudication involving infra renal aorta and rt and lt common iliac arteries (had stents palced), bilat cataracts, glaucoma L eye with stent. Last Myocardial Infarction Date:: History of Any Multi-Drug Resistant Organisms: None Reported Past Surgical History: Adenoidectomy, Heart Catheterization, Heart Catheterization With Stent, Tonsillectomy, Tubal Ligation Additional Past Surgical History / Comment(s): EXP. LAP 02/2012, STENT TO HEART X1, INFRARENAL AORTA STENT, STENTS TO RIGHT AND LEFT COMMONI ILLIAC ARTERIES. AORTOGRAM WITH RUNOFF 02/02/14 @ [facility] Past Anesthesia/Blood Transfusion Reactions: No Reported Reaction Additional Past Anesthesia/Blood Transfusion Reaction / Comment(s): pt states she has never had a blood transfusion Date of Last Stent Placement:: 2000 Past Psychological History: No Psychological Hx Reported Smoking Status: Former smoker Past Alcohol Use History: Occasional Past Drug Use History: None Reported - Past Family History Mother Family Medical History: Dementia Additional Family Medical History / Comment(s): HEART PROBLEMS Father Family Medical History: Coronary Artery Disease (CAD), Myocardial Infarction ([place]) Additional Family Medical History / Comment(s): Her father at age 79 with a myocardial infarction. General Exam Limitations: no limitations General appearance: alert, in no apparent distress Head exam: Present: atraumatic, normocephalic, normal inspection Eye exam: Present: normal appearance, PERRL, EOMI. Absent: scleral icterus, conjunctival injection, periorbital swelling ENT exam: Present: normal exam, mucous membranes moist Neck exam: Present: normal inspection. Absent: tenderness, meningismus, lymphadenopathy Respiratory exam: Present: normal lung sounds bilaterally. Absent: respiratory distress, wheezes, rales, rhonchi, stridor Cardiovascular Exam: Present: regular rate, normal rhythm, normal heart sounds. Absent: systolic murmur, diastolic murmur, rubs, gallop, clicks GI/Abdominal exam: Present: soft, normal bowel sounds. Absent: distended, tenderness, guarding, rebound, rigid Extremities exam: Present: normal inspection, full ROM, normal capillary refill. Absent: tenderness, pedal edema, joint swelling, calf tenderness Back exam: Present: normal inspection Neurological exam: Present: alert, oriented X3, CN II-XII intact Psychiatric exam: Present: normal affect, normal mood Skin exam: Present: warm, dry, intact, normal color. 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 Patient does have a CTA which is negative for PE here in the emergency department. Chest x-ray is negative. Patient has multiple left lateral malleolus is replaced here in the ER she can be discharged home Disposition Clinical Impression: Atypical chest pain, Chest pain, Reflux gastritis, Hypokalemia, Hypomagnesemia Disposition: HOME SELF-CARE Condition: Good Instructions (If sedation given, give patient instructions): Chest Pain (ED), Hypomagnesemia (ED), Hypokalemia (ED) Is patient prescribed a controlled substance at d/c from ED?: No Referrals: Vaibhav Ac MD [Primary Care Provider] - 1-2 days
[2021-07-20 04:53] LABS: Basophils % (A) 0 %; Eosinophils # (A) 0.2 k/uL (0-0.7); Eosinophils % (A) 2 %; HCT 41.9 % (34.0-46.0); HGB 13.6 gm/dL (11.4-16.0); Lymphocytes # (A) 1.2 k/uL (1.0-4.8); Lymphocytes % (A) 11 %; MCH 28.4 pg (25.0-35.0); MCHC 32.5 g/dL (31.0-37.0); MCV 87.4 fL (80.0-100.0); Mean Platelet Volume 7.5; Monocytes # (A) 0.5 k/uL (0-1.0); Monocytes % (A) 5 %; Neutrophils # (A) 8.5 k/uL (1.3-7.7); Neutrophils % (A) 81 %; Platelet Count 247 k/uL (150-450); WBC 10.4 k/uL (3.8-10.6)
--- NOTE | 2021-07-20 05:04 | XR ---
EXAMINATION TYPE: XR chest 2V DATE OF EXAM: 07/20/2021 COMPARISON: NONE HISTORY: Chest pain TECHNIQUE: 2 views FINDINGS: Heart is normal. Lungs are clear of infiltrate. There are sternal wires. Thoracic aorta is atheromatous. There are chest leads. Costophrenic angles are clear. IMPRESSION: No active cardiopulmonary disease. Normal heart. No change.
[2021-07-20 05:19] LABS: Albumin 3.7 g/dL (3.5-5.0); Calcium 9.4 mg/dL (8.4-10.2); Magnesium 1.3 mg/dL (1.6-2.3); Total Bilirubin 0.9 mg/dL (0.2-1.3); Total Protein 6.8 g/dL (6.3-8.2)
[2021-07-20 05:21] LABS: INR 0.9 (<1.2)
[2021-07-20 05:22] LABS: Partial Thromboplastin Time 21.4 sec (22.0-30.0); Prothrombin Time 9.7 sec (9.0-12.0)
[2021-07-20] MEDS ORDERED: MAGNESIUM SULFATE-D5W PMX 1 GM in DEXTROSE/WATER 1 100ML.BAG IVPB ONE (05:36)
[2021-07-20] MEDS ORDERED: POTASSIUM BICARBONATE/CIT AC 20 MEQ TABLET.EFF PO ONE (05:36)
[2021-07-20] MEDS ORDERED: POTASSIUM CHLORIDE ER 20 MEQ TAB.ER PO STA ×2 (05:36→06:15)
[2021-07-20] MEDS ORDERED: MAGNESIUM OXIDE 400 MG TAB PO STA ×2 (05:36)
[2021-07-20] MEDS: POTASSIUM CHLORIDE ER 20 MEQ TAB.ER PO STA ×2 (06:00→06:17)
--- NOTE | 2021-07-20 06:20 | CT ---
EXAMINATION TYPE: CT angio chest DATE OF EXAM: 07/20/2021 COMPARISON: 03/14/2018 HISTORY: R/O PE CT DLP: 312.10 mGycm Automated exposure control for dose reduction was used. CONTRAST: Performed with IV Contrast, patient injected with 50 mL of Isovue 370. There are 3-D post processed images. There is some coarse interstitial density in the periphery of both lungs. There is mild subsegmental atelectasis at the lung bases. There is no pulmonary consolidation. There are no hilar masses. Thorac ic aorta shows mild atheromatous change. There is no dissection. There is normal contrast opacificati on of the pulmonary arteries. There are no filling defects. There is some spurring in the thoracic sp ine. Sternum is intact. Upper abdominal soft tissues are intact. IMPRESSION: No evidence of pulmonary embolism. Increased pulmonary interstitial density compared to old exam. No suspicious pulmonary mass.
[2021-07-20 07:30] VITALS: BP 160/75; PULSE 94; TEMP 98.2
== END 2021-07-20 07:32 | disposition home or self-care (01) ==
LOC: EC 03:55
DX: K29.60 Other gastritis without bleeding (principal); K21.9 Gastro-esophageal reflux disease without esophagitis; E87.6 Hypokalemia; E83.42 Hypomagnesemia; E11.51 Type 2 diabetes mellitus with diabetic peripheral angiopathy without gangrene; E11.36 Type 2 diabetes mellitus with diabetic cataract; I10 Essential (primary) hypertension; I25.10 Atherosclerotic heart disease of native coronary artery without angina pectoris; I25.2 Old myocardial infarction; E78.5 Hyperlipidemia, unspecified; E78.00 Pure hypercholesterolemia, unspecified; M19.90 Unspecified osteoarthritis, unspecified site; Z79.02 Long term (current) use of antithrombotics/antiplatelets; Z79.82 Long term (current) use of aspirin; Z79.84 Long term (current) use of oral hypoglycemic drugs; Z79.890 Hormone replacement therapy; Z79.899 Other long term (current) drug therapy; Z87.891 Personal history of nicotine dependence; Z88.5 Allergy status to narcotic agent; Z82.49 Family history of ischemic heart disease and other diseases of the circulatory system
CPT/HCPCS: 36415; 93005; 85379; 80053; 83690; 83735; 84484; 85025; 85610; 85730; 71046; 71275; 99285; 96365; 96375 ×2; 96361 ×3; J2405; J3475; C9113; Q9967

== ENCOUNTER 2022-12-12 09:13 | Inpatient (IN) | payer MEDICARE ==
[2022-12-12] MEDS ORDERED: SODIUM CHLORIDE 0.9% 1,000 ML IV STA (09:25)
--- NOTE | 2022-12-12 09:36 | ED ---
Syncope HPI - General Chief Complaint: Syncope Stated Complaint: Syncope Time Seen by Provider: 12/12/22 09:21 Source: patient, EMS, RN notes reviewed Mode of arrival: EMS Limitations: no limitations - History of Present Illness Initial Comments: This is a 77-year-old female who presents to the emergency department for a syncopal episode. Patient states that she was standing at her kitchen counter getting ready to take her medicine, when she started to feel short of breath and dizzy. She subsequently passed out. Her caught her and lowered her to the floor, so she did not sustain any injuries. Patient does not recall this event, but her states that she was unconscious for about a minute. Earlier in the day, she had a period of time where she felt very short of breath for a couple of minutes. She was not changing positions when she lost consciousness. States that she currently feels back to normal. She does have a cardiac history and has had syncopal episodes related to cardiac problems in the past. Denies any fevers, chills, sore throat, cough, palpitations, abdominal pain, nausea, vomiting, diarrhea, back pain, or headaches. MD Complaint: loss of consciousness Prodromal Symptoms: shortness of breath Witnessed: yes - by bystander - Related Data Home Medications Medication Instructions Recorded Confirmed Ergocalciferol [Vitamin D2 50,000 units PO Q14D 01/31/14 12/12/22 (DRISDOL)] Ezetimibe [Zetia] 10 mg PO DAILY 01/31/14 12/12/22 Empagliflozin [Jardiance] 25 mg PO DAILY 11/13/19 12/12/22 Levothyroxine Sodium [Synthroid] 112 mcg PO DAILY 11/13/19 12/12/22 Metoprolol Tartrate [Lopressor] 100 mg PO BID 11/13/19 12/12/22 metFORMIN HCL [metFORMIN HCL ER] 500 mg PO BID 11/13/19 12/12/22 Aspirin 81 mg PO DAILY 12/13/19 12/12/22 lisinopriL [Zestril] 10 mg PO DAILY 12/13/19 12/12/22 Cyanocobalamin (Vitamin B-12) 1,000 mcg PO DAILY 12/12/22 12/12/22 [Vitamin B-12] Famotidine [Pepcid] 20 mg PO BID 12/12/22 12/12/22 Liraglutide [Victoza 3-Luiz] 1.8 mg SQ DAILY 12/12/22 12/12/22 Nitrofurantoin Monohyd/M-Cryst 100 mg PO BID 12/12/22 12/12/22 [Macrobid] Nystatin/Triamcin 1 applic TOPICAL DAILY PRN 12/12/22 12/12/22 [Nystatin-Triamcinolone Cream] Pantoprazole [Protonix] 40 mg PO DAILY 12/12/22 12/12/22 Potassium Chloride [Klor-Con 8] 8 meq PO DAILY 12/12/22 12/12/22 Repaglinide [Prandin] 1 mg PO BID 12/12/22 12/12/22 Previous Rx's Medication Instructions Recorded Clopidogrel [Plavix] 75 mg PO DAILY #30 tab 12/06/18 Allergies Allergy/AdvReac Type Severity Reaction Status Date / Time hydromorphone HCl Allergy RESPIRATORY Verified 07/20/21 04:03 [From Dilaudid] DEPRESSION Review of Systems ROS Statement: Those systems with pertinent positive or pertinent negative responses have been documented in the HPI. ROS Other: All systems not noted in ROS Statement are negative. Past Medical History Past Medical History: Coronary Artery Disease (CAD), Chest Pain / Angina, Diabetes Mellitus, Eye Disorder, Hyperlipidemia, Hypertension, Myocardial Infarction (ID), Myocardial Infarction (non Q-wave), Osteoarthritis (OA), Thyroid Disorder, Vascular Disorder Additional Past Medical History / Comment(s): 2000 HX ASHD, peripheral arterial disease, intermittent claudication involving infra renal aorta and rt and lt common iliac arteries (had stents palced), bilat cataracts, glaucoma L eye with stent. Last Myocardial Infarction Date:: History of Any Multi-Drug Resistant Organisms: None Reported Past Surgical History: Adenoidectomy, Heart Catheterization, Heart Catheterization With Stent, Tonsillectomy, Tubal Ligation Additional Past Surgical History / Comment(s): EXP. LAP 02/2012, STENT TO HEART X1, INFRARENAL AORTA STENT, STENTS TO RIGHT AND LEFT COMMONI ILLIAC ARTERIES. AORTOGRAM WITH RUNOFF 02/02/14 @ [facility] Past Anesthesia/Blood Transfusion Reactions: No Reported Reaction Additional Past Anesthesia/Blood Transfusion Reaction / Comment(s): pt states she has never had a blood transfusion Date of Last Stent Placement:: 2000 Past Psychological History: No Psychological Hx Reported Smoking Status: Former smoker Past Alcohol Use History: Occasional Past Drug Use History: None Reported - Past Family History Mother Family Medical History: Dementia Additional Family Medical History / Comment(s): HEART PROBLEMS Father Family Medical History: Coronary Artery Disease (CAD), Myocardial Infarction (ID) Additional Family Medical History / Comment(s): Her father at age 79 with a myocardial infarction. General Exam Limitations: no limitations General appearance: alert, in no apparent distress Head exam: Present: atraumatic, normocephalic, normal inspection Eye exam: Present: normal appearance, PERRL, EOMI. Absent: scleral icterus, conjunctival injection, periorbital swelling Respiratory exam: Present: normal lung sounds bilaterally. Absent: respiratory distress, wheezes, rales, rhonchi, stridor Cardiovascular Exam: Present: regular rate, normal rhythm, normal heart sounds. Absent: systolic murmur, diastolic murmur, rubs, gallop, clicks Neurological exam: Present: alert, oriented X3, CN II-XII intact Psychiatric exam: Present: normal affect, normal mood Skin exam: Present: warm, dry, intact, normal color. Absent: rash Course Vital Signs 12/12/22 12/12/22 12/12/22 09:15 11:25 13:23 Temperature 97.8 F Pulse Rate 95 101 H Pulse Rate [ 97 Left Sitting Pulse Oximetery ] Pulse Rate [ 96 Left Supine] Pulse Rate [ 104 H Standing] Respiratory 18 18 18 Rate Blood Pressure 149/69 141/59 Blood Pressure 134/71 [Left Arm Sitting] Blood Pressure 142/72 [Left Arm Standing] Blood Pressure 147/58 [Left Arm Supine] O2 Sat by Pulse 99 96 Oximetry 12/12/22 14:45 Temperature Pulse Rate 98 Pulse Rate [ Left Sitting Pulse Oximetery ] Pulse Rate [ Left Supine] Pulse Rate [ Standing] Respiratory 18 Rate Blood Pressure 140/60 Blood Pressure [Left Arm Sitting] Blood Pressure [Left Arm Standing] Blood Pressure [Left Arm Supine] O2 Sat by Pulse 95 Oximetry Medical Decision Making - Medical Decision Making This is a 77-year-old female who presents to the emergency department for a syncopal episode. Was pt. sent in by a medical professional or institution? @ -No Did you speak to anyone other than the patient for history? @ -No Did you review nursing and triage notes? @ -Yes, and I agree, it is accurate with regards to the patient's symptoms. Were old charts reviewed? @ -No Differential Diagnosis? @ -Differential Syncope: Valvular disease, hypertrophic cardiomyopathy, pulmonary embolism, tamponade, tachycardia, bradycardia, ID, hypovolemia, hemorrhage, dissection, anemia, intracranial hemorrhage, seizure, hypoglycemia, carbon monoxide poisoning, this is not meant to be an all-inclusive list. EKG interpreted by me (3pts min.)? @ -Sinus rhythm. Ventricular rate 88 beats per minute, NV interval 164 ms, QRS duration 88 ms, QTC 418 ms. X-rays interpreted by me (1pt min.)? @ -Chest x-ray obtained, my interpretation identifies no localized consolidations or infiltrates. What testing was considered but not performed? (CT, X-rays, U/S, labs)? Why? @ -None What meds were considered but not given? Why? @ -None Did you discuss the management of the patient with other professionals? @ -Yes, Dr. Briceno, who accepts the patient for admission. Did you reconcile home meds? @ -No Was smoking cessation discussed for >3mins.? @ -No Was critical care preformed (if so, how long)? @ -No Were there social determinants of health that impacted care today? How? (Homelessness, low income, unemployed, alcoholism, drug addiction, transportation, low edu. Level, literacy, decrease access to med. care, [facility], rehab)? @ -No Was there de-escalation of care discussed even if they declined? (Discuss DNR or withdrawal of care, Hospice)? @ -No What co-morbidities impacted this encounter? (DM, HTN, Smoking, COPD, CAD, Cancer, CVA, Hep., AIDS, mental health diagnosis, sleep apnea, morbid obesity)? @ -CAD, DM, HTN, HLD, thyroid disorder Was patient admitted / discharged? @ -Admitted. Lab work obtained and found to be consistent with an SOFIA. Chest x-ray reveals no acute findings. She was given a liter bolus of IV fluids. Orthostatics negative. Workup at this time is negative for any acute process. Discussed with the patient that given that she has had prior syncopal episodes that have been associated with cardiac anomalies, and she also experienced shortness of breath and dizziness prior to the episode, admission would be advised for evaluation by cardiology. Patient is agreeable to this. Patient admitted to medicine for further evaluation with cardiology listed as a consult. Undiagnosed new problem with uncertain prognosis? @ -None Drug Therapy requiring intensive monitoring for toxicity (Heparin, Nitro, Insulin, Cardizem)? @ -None Were any procedures done? @ -None Diagnosis/symptom? @ -Syncope, SOFIA Acute, or Chronic, or Acute on Chronic? @ -Acute Uncomplicated (without systemic symptoms) or Complicated (systemic symptoms)? @ -Complicated Side effects of treatment? @ -None Exacerbation, Progression, or Severe Exacerbation] @ -Not applicable Poses a threat to life or bodily function? @ -Yes Diagnosis/symptom? @ -CAD Acute, or Chronic, or Acute on Chronic? @ -Chronic Uncomplicated (without systemic symptoms) or Complicated (systemic symptoms)? @ -Complicated Side effects of treatment? @ -None Exacerbation, Progression, or Severe Exacerbation] @ -Unclear Poses a threat to life or bodily function? @ -Yes This case was discussed in detail with the attending ED physician, Dr. Lagos. Presentation, findings, and treatment plan discussed in detail as well. - Lab Data Result diagrams: 12/12/22 09:27 12/12/22 09:27 Lab Results 12/12/22 12/12/22 12/12/22 Range/Units 09:27 09:27 09:27 WBC 9.0 (3.8-10.6) k/uL RBC 4.28 (3.80-5.40) m/uL Hgb 12.4 (11.4-16.0) gm/dL Hct 37.0 (34.0-46.0) % MCV 86.4 (80.0-100.0) fL MCH 28.9 (25.0-35.0) pg MCHC 33.4 (31.0-37.0) g/dL RDW 14.1 (11.5-15.5) % Plt Count 171 (150-450) k/uL MPV 7.6 Neutrophils % 81 % Lymphocytes % 8 % Monocytes % 7 % Eosinophils % 3 % Basophils % 0 % Neutrophils # 7.3 (1.3-7.7) k/uL Lymphocytes # 0.8 L (1.0-4.8) k/uL Monocytes # 0.6 (0-1.0) k/uL Eosinophils # 0.2 (0-0.7) k/uL Basophils # 0.0 (0-0.2) k/uL PT 11.0 (9.0-12.0) sec INR 1.1 (<1.2) APTT 20.1 L (22.0-30.0) sec Sodium (137-145) mmol/L Potassium (3.5-5.1) mmol/L Chloride (98-107) mmol/L Carbon Dioxide (22-30) mmol/L Anion Gap mmol/L BUN (7-17) mg/dL Creatinine (0.52-1.04) mg/dL Est GFR (CKD-EPI)AfAm (>60 ml/min/1.73 sqM) Est GFR (CKD-EPI)NonAf (>60 ml/min/1.73 sqM) Glucose (74-99) mg/dL Calcium (8.4-10.2) mg/dL Magnesium (1.6-2.3) mg/dL Total Bilirubin (0.2-1.3) mg/dL AST (14-36) U/L ALT (4-34) U/L Alkaline Phosphatase (38-126) U/L Troponin I (0.000-0.034) ng/mL Total Protein (6.3-8.2) g/dL Albumin (3.5-5.0) g/dL Urine Color Light Yellow Urine Appearance Cloudy H (Clear) Urine pH 5.5 (5.0-8.0) Ur Specific [place] 1.011 (1.001-1.035) Urine Protein 1+ H (Negative) Urine Glucose (UA) 4+ H (Negative) Urine Ketones Trace H (Negative) Urine Blood Small H (Negative) Urine Nitrite Negative (Negative) Urine Bilirubin Negative (Negative) Urine Urobilinogen <2.0 (<2.0) mg/dL Ur Leukocyte Esterase Large H (Negative) Urine RBC 20 H (0-5) /hpf Urine WBC >182 H (0-5) /hpf Urine WBC Clumps Few H (None) /hpf Ur Squamous Epith Cells 1 (0-4) /hpf Urine Bacteria Rare H (None) /hpf Urine Mucus Rare H (None) /hpf Urine Yeast (Budding) Moderate H (None) /hpf 12/12/22 12/12/22 Range/Units 09:27 09:27 WBC (3.8-10.6) k/uL RBC (3.80-5.40) m/uL Hgb (11.4-16.0) gm/dL Hct (34.0-46.0) % MCV (80.0-100.0) fL MCH (25.0-35.0) pg MCHC (31.0-37.0) g/dL RDW (11.5-15.5) % Plt Count (150-450) k/uL MPV Neutrophils % % Lymphocytes % % Monocytes % % Eosinophils % % Basophils % % Neutrophils # (1.3-7.7) k/uL Lymphocytes # (1.0-4.8) k/uL Monocytes # (0-1.0) k/uL Eosinophils # (0-0.7) k/uL Basophils # (0-0.2) k/uL PT (9.0-12.0) sec INR (<1.2) APTT (22.0-30.0) sec Sodium 138 (137-145) mmol/L Potassium 3.7 (3.5-5.1) mmol/L Chloride 104 (98-107) mmol/L Carbon Dioxide 26 (22-30) mmol/L Anion Gap 8 mmol/L BUN 20 H (7-17) mg/dL Creatinine 1.14 H (0.52-1.04) mg/dL Est GFR (CKD-EPI)AfAm 54 (>60 ml/min/1.73 sqM) Est GFR (CKD-EPI)NonAf 46 (>60 ml/min/1.73 sqM) Glucose 127 H (74-99) mg/dL Calcium 9.1 (8.4-10.2) mg/dL Magnesium 1.9 (1.6-2.3) mg/dL Total Bilirubin 0.9 (0.2-1.3) mg/dL AST 52 H (14-36) U/L ALT 62 H (4-34) U/L Alkaline Phosphatase 64 (38-126) U/L Troponin I <0.012 (0.000-0.034) ng/mL Total Protein 6.3 (6.3-8.2) g/dL Albumin 3.5 (3.5-5.0) g/dL Urine Color Urine Appearance (Clear) Urine pH (5.0-8.0) Ur Specific [place] (1.001-1.035) Urine Protein (Negative) Urine Glucose (UA) (Negative) Urine Ketones (Negative) Urine Blood (Negative) Urine Nitrite (Negative) Urine Bilirubin (Negative) Urine Urobilinogen (<2.0) mg/dL Ur Leukocyte Esterase (Negative) Urine RBC (0-5) /hpf Urine WBC (0-5) /hpf Urine WBC Clumps (None) /hpf Ur Squamous Epith Cells (0-4) /hpf Urine Bacteria (None) /hpf Urine Mucus (None) /hpf Urine Yeast (Budding) (None) /hpf - Radiology Data Radiology results: report reviewed, image reviewed Disposition Clinical Impression: Syncope, CAD (coronary artery disease), SOFIA (acute kidney injury) Disposition: ADMITTED IP TO THIS HOSP
[2022-12-12 09:59] LABS: Basophils % (A) 0 %; Eosinophils # (A) 0.2 k/uL (0-0.7); Eosinophils % (A) 3 %; HGB 12.4 gm/dL (11.4-16.0); Lymphocytes # (A) 0.8 k/uL (1.0-4.8); Lymphocytes % (A) 8 %; MCH 28.9 pg (25.0-35.0); MCHC 33.4 g/dL (31.0-37.0); MCV 86.4 fL (80.0-100.0); Mean Platelet Volume 7.6; Monocytes # (A) 0.6 k/uL (0-1.0); Monocytes % (A) 7 %; Neutrophils # (A) 7.3 k/uL (1.3-7.7); Neutrophils % (A) 81 %; Platelet Count 171 k/uL (150-450); RBC 4.28 m/uL (3.80-5.40); RDW 14.1 % (11.5-15.5)
[2022-12-12 10:09] LABS: Albumin 3.5 g/dL (3.5-5.0); Calcium 9.1 mg/dL (8.4-10.2); Magnesium 1.9 mg/dL (1.6-2.3); Potassium 3.7 mmol/L (3.5-5.1); Total Bilirubin 0.9 mg/dL (0.2-1.3); Total Protein 6.3 g/dL (6.3-8.2)
--- NOTE | 2022-12-12 10:13 | XR ---
EXAMINATION TYPE: XR chest 2V DATE OF EXAM: 12/12/2022 COMPARISON: 07/20/2021 HISTORY: 77-year-old syncope TECHNIQUE: AP and lateral views FINDINGS: Median sternotomy wires and post-CABG clips in the mediastinum. Heart upper limits of normal in size. Mild interstitial prominence is unchanged, it appears chronic. No consolidation or pleural effusion. IMPRESSION: Borderline heart size. Post-CABG changes. Chronic changes without acute process seen.
[2022-12-12 10:18] LABS: INR 1.1 (<1.2)
[2022-12-12 10:26] LABS: Partial Thromboplastin Time 20.1 sec (22.0-30.0)
[2022-12-12] MEDS ORDERED: ONDANSETRON 4 MG/2 ML VIAL IVP PRN (11:23)
[2022-12-12] MEDS ORDERED: ACETAMINOPHEN TAB 325 MG TAB PO PRN (11:23)
[2022-12-12] MEDS ORDERED: NALOXONE 0.4 MG/ML 1 ML VIAL IV PRN (11:23)
[2022-12-12 13:15] LABS: Appearance,Urine Cloudy (Clear); Bacteria,Urine Rare /hpf; Bilirubin,Urine Negative (Negative); Blood,Urine Small (Negative); Budding Yeast,Urine Moderate /hpf; Color,Urine Light Yellow; Glucose,Urine (UA) 4+ (Negative); Ketones,Urine Trace (Negative); Leukocyte Esterase,Urine Large (Negative); Mucus,Urine Rare /hpf; Nitrite,Urine Negative (Negative); PH, Urine 5.5 (5.0-8.0); Protein,Urine 1+ (Negative); RBC,Urine 20 /hpf (0-5); Specific Gravity,Urine 1.011 (1.001-1.035); Squamous Epithelial Cell,Urine 1 /hpf (0-4); Urobilinogen,Urine <2.0 mg/dL (<2.0); WBC,Urine >182 /hpf (0-5)
[2022-12-12] MEDS ORDERED: LACTULOSE 20 GM/30 ML CUP PO PRN (14:00)
[2022-12-12] MEDS ORDERED: MELATONIN 3 MG TABLET PO PRN (14:00)
[2022-12-12] MEDS ORDERED: CALCIUM CARBONATE 500 MG CHEWABLE PO PRN (14:00)
[2022-12-12] MEDS ORDERED: LORazepam 0.5 MG TAB PO PRN (14:00)
[2022-12-12] MEDS ORDERED: DEXTROSE 50% SYRINGE 50 ML IVP PRN ×2 (14:01)
--- NOTE | 2022-12-12 14:37 | CT ---
EXAMINATION TYPE: CT chest angio for PE DATE OF EXAM: 12/12/2022 COMPARISON: 07/20/2021 HISTORY: elevated d-dimer and syncope episode CT DLP: 280 mGycm Automated exposure control for dose reduction was used. CONTRAST: Performed with IV Contrast, patient injected with 53 mL of Isovue 370. There is degenerative spur formation in the thoracic spine. There are sternal wires. Thoracic aorta i s atheromatous. No evidence of aneurysm or dissection. No mediastinal adenopathy. There are no hilar masses. There is normal contrast opacification of the p ulmonary arteries. No filling defect. There is coarse reticular interstitial infiltrate in both lungs. No pleural effusion. No pericardial effusion. There are a few calcified gallstones. IMPRESSION: There is no evidence of pulmonary embolism. There is moderate coarse interstitial pulmonary infiltrat es consistent with pulmonary fibrosis which has progressed compared to old exam. No pleural fluid see n to suggest heart failure. Cholelithiasis.
[2022-12-12] MEDS ORDERED: IPRATROPIUM-ALBUTEROL 3 ML NEB INHALATION SCH (16:27)
--- NOTE | 2022-12-12 16:36 | P.HPIM ---
History of Present Illness H&P Date: 12/12/22 Chief Complaint: Short of breath This is a pleasant 77-year-old patient follows with Dr. Vaibhav Ac. Chronic stable medical conditions include CAD with stent, PAD with peripheral stents, diabetes, hypertension, hyperlipidemia, osteoarthritis,. Patient is accompanied by her in the ER. This morning when patient got up she was short of breath. Care with occasional noticed that she was unsteady in the feet. He has to how she was feeling she did state I cannot breathe. She went to the cupboard to get her medications. He got up to help her. Still feeling short of breath. Then she became limp and her arms. He then called 911. Patient was out for a short time. She became pale. Patient denies any fever and chills. Was doing fine previously. Denies any chest pain. Patient does get some lower extremity swelling in the evening. I ordered the computed tomography scan from the ER that did come back negative for PE. Review of systems: GEN.: Tired EYES: None HEENT: None NECK: None RESPIRATORY: As above CARDIOVASCULAR: As above GASTROINTESTINAL: None GENITOURINARY: None MUSCULOSKELETAL: Joint pains LYMPHATICS: None HEMATOLOGICAL: None PSYCHIATRY: None NEUROLOGICAL: None Past medical history to include: CAD with stent, diabetes, hypertension, hyperlipidemia, osteoporosis, hypothyroid, PAD with stent Social history: Alcohol occasionally. Lives with her . Smoked for 40 years 2 packs a day stopped in 2003 Physical examination: VITAL SIGNS: 97.8, 95, 18, 147/ 58, 96% room air [not orthostatic GENERAL: BMI 26.5, declining in bed comfortable EYES: Pupils equal. Conjunctiva normal. HEENT: External appearance of nose and ears normal, oral cavity grossly normal. NECK: JVD not raised; masses not palpable. HEART: First and second heart sounds are normal; no edema. LUNGS: Respiratory rate normal; decreased breath sounds. ABDOMEN: Soft, nontender, liver spleen not palpable, no masses palpable. PSYCH: Alert and oriented x3; mood and affect normal. MUSCULOSKELETAL:No Clubbing/cyanosis;muscles-grossly intact. OA NEUROLOGICAL: Cranial nerves grossly intact; no facial asymmetry, power and sensation grossly intact. LYMPHATICS: No lymph nodes palpable in the axilla and neck INVESTIGATIONS, reviewed in the clinical context: White count 19 hemoglobin 12.4 platelets 171 sodium 138 potassium 3.7 BUN 20 creatinine 1.14 Troponin I less than 0.012, 0.012 UA: Leukoesterase positive, WBC 1-1 each 2, nitrite negative EKG tracing personally reviewed by me-normal sinus rhythm. Rate 88 Chest x-ray film personally reviewed by me-cardiomegaly. Interstitial prominence CT chest angiogram for PE: Coarse reticular interstitial infiltrate in both lungs. Few calcified gallstones. No PE. Assessment and plan: -Patient woke up feeling short of breath symptoms progressively got worse. Patient gently passed out. Not found to be orthostatic in the ER. No chest pressure. Troponin negative. CT chest ruled out PE. Does show interstitial prominence. Patient does smoke for many years. Silent cardiac ischemi a/arrhythmia in the differential. Serial troponin. Telemetry. -Pulmonary fibrosis. No prior documentation. IV Solu-Medrol. Consult pulmonary -Acute COPD exacerbation in an ex-smoker JoaquimSoledadvarsha. IV Solu-Medrol -CAD with prior history of stent Aspirin. Plavix. Telemetry. Consult cardiology -PAD with prior intervention Aspirin, Plavix, Zetia -Diabetes mellitus type 2, on oral hypoglycemic Jardiance, metformin, and Victoza, Prandin. Follow Accu-Cheks and sliding scale -Primary osteoarthritis Tylenol when necessary -Hypothyroid Synthroid -Essential hypertension Lisinopril, Lopressor -Full code Care was discussed the patient at the bedside. Consultation to pulmonary and cardiology 2-D echocardiogram. Past Medical History Past Medical History: Coronary Artery Disease (CAD), Chest Pain / Angina, Diabetes Mellitus, Eye Disorder, Hyperlipidemia, Hypertension, Myocardial Infarction (NM), Myocardial Infarction (non Q-wave), Osteoarthritis (OA), Thyroid Disorder, Vascular Disorder Additional Past Medical History / Comment(s): 2000 HX ASHD, peripheral arterial disease, intermittent claudication involving infra renal aorta and rt and lt common iliac arteries (had stents palced), bilat cataracts, glaucoma L eye with stent. Last Myocardial Infarction Date:: History of Any Multi-Drug Resistant Organisms: None Reported Past Surgical History: Adenoidectomy, Heart Catheterization, Heart Catheterization With Stent, Tonsillectomy, Tubal Ligation Additional Past Surgical History / Comment(s): EXP. LAP 02/2012, STENT TO HEART X1, INFRARENAL AORTA STENT, STENTS TO RIGHT AND LEFT COMMONI ILLIAC ARTERIES. AORTOGRAM WITH RUNOFF 02/02/14 @ [facility] Past Anesthesia/Blood Transfusion Reactions: No Reported Reaction Additional Past Anesthesia/Blood Transfusion Reaction / Comment(s): pt states she has never had a blood transfusion Date of Last Stent Placement:: 2000 Past Psychological History: No Psychological Hx Reported Smoking Status: Former smoker Past Alcohol Use History: Occasional Past Drug Use History: None Reported - Past Family History Mother Family Medical History: Dementia Additional Family Medical History / Comment(s): HEART PROBLEMS Father Family Medical History: Coronary Artery Disease (CAD), Myocardial Infarction (NM) Additional Family Medical History / Comment(s): Her father at age 79 with a myocardial infarction. Medications and Allergies Home Medications Medication Instructions Recorded Confirmed Type Ergocalciferol [Vitamin D2 50,000 units PO Q14D 01/31/14 12/12/22 History (DRISDOL)] Ezetimibe [Zetia] 10 mg PO DAILY 01/31/14 12/12/22 History Clopidogrel [Plavix] 75 mg PO DAILY #30 tab 12/06/18 12/12/22 Rx Empagliflozin [Jardiance] 25 mg PO DAILY 11/13/19 12/12/22 History Levothyroxine Sodium [Synthroid] 112 mcg PO DAILY 11/13/19 12/12/22 History Metoprolol Tartrate [Lopressor] 100 mg PO BID 11/13/19 12/12/22 History metFORMIN HCL [metFORMIN HCL ER] 500 mg PO BID 11/13/19 12/12/22 History Aspirin 81 mg PO DAILY 12/13/19 12/12/22 History lisinopriL [Zestril] 10 mg PO DAILY 12/13/19 12/12/22 History Cyanocobalamin (Vitamin B-12) 1,000 mcg PO DAILY 12/12/22 12/12/22 History [Vitamin B-12] Famotidine [Pepcid] 20 mg PO BID 12/12/22 12/12/22 History Liraglutide [Victoza 3-Uliz] 1.8 mg SQ DAILY 12/12/22 12/12/22 History Nitrofurantoin Monohyd/M-Cryst 100 mg PO BID 12/12/22 12/12/22 History [Macrobid] Nystatin/Triamcin 1 applic TOPICAL DAILY PRN 12/12/22 12/12/22 History [Nystatin-Triamcinolone Cream] Pantoprazole [Protonix] 40 mg PO DAILY 12/12/22 12/12/22 History Potassium Chloride [Klor-Con 8] 8 meq PO DAILY 12/12/22 12/12/22 History Repaglinide [Prandin] 1 mg PO BID 12/12/22 12/12/22 History Allergies Allergy/AdvReac Type Severity Reaction Status Date / Time hydromorphone HCl Allergy RESPIRATORY Verified 07/20/21 04:03 [From Dilaudid] DEPRESSION Physical Exam Vitals: Vital Signs Temp Pulse Pulse Pulse Pulse Pulse Resp 12/12/22 15:44 97.9 F 87 16 12/12/22 14:45 98 18 12/12/22 13:23 101 H 18 12/12/22 11:25 97 96 104 H 18 12/12/22 09:15 97.8 F 95 18 BP BP BP BP BP Pulse Ox 12/12/22 15:44 148/70 97 12/12/22 14:45 140/60 95 12/12/22 13:23 141/59 12/12/22 11:25 134/71 142/72 147/58 96 12/12/22 09:15 149/69 99 Intake and Output 12/12/22 12/12/22 12/12/22 06:59 14:59 22:59 Other: Weight 65.771 kg Results CBC & Chem 7: 12/12/22 09:27 12/12/22 09:27 Labs: Abnormal Lab Results - Last 24 Hours (Table) 12/12/22 12/12/22 12/12/22 Range/Units 09:27 09:27 09:27 Lymphocytes # 0.8 L (1.0-4.8) k/uL APTT 20.1 L (22.0-30.0) sec BUN (7-17) mg/dL Creatinine (0.52-1.04) mg/dL Glucose (74-99) mg/dL AST (14-36) U/L ALT (4-34) U/L Urine Appearance Cloudy H (Clear) Urine Protein 1+ H (Negative) Urine Glucose (UA) 4+ H (Negative) Urine Ketones Trace H (Negative) Urine Blood Small H (Negative) Ur Leukocyte Esterase Large H (Negative) Urine RBC 20 H (0-5) /hpf Urine WBC >182 H (0-5) /hpf Urine WBC Clumps Few H (None) /hpf Urine Bacteria Rare H (None) /hpf Urine Mucus Rare H (None) /hpf Urine Yeast (Budding) Moderate H (None) /hpf 12/12/22 Range/Units 09:27 Lymphocytes # (1.0-4.8) k/uL APTT (22.0-30.0) sec BUN 20 H (7-17) mg/dL Creatinine 1.14 H (0.52-1.04) mg/dL Glucose 127 H (74-99) mg/dL AST 52 H (14-36) U/L ALT 62 H (4-34) U/L Urine Appearance (Clear) Urine Protein (Negative) Urine Glucose (UA) (Negative) Urine Ketones (Negative) Urine Blood (Negative) Ur Leukocyte Esterase (Negative) Urine RBC (0-5) /hpf Urine WBC (0-5) /hpf Urine WBC Clumps (None) /hpf Urine Bacteria (None) /hpf Urine Mucus (None) /hpf Urine Yeast (Budding) (None) /hpf
[2022-12-12] MEDS: PANTOPRAZOLE 40 MG TABLET PO SCH (17:18)
[2022-12-12] MEDS: METOPROLOL TARTRATE 50 MG TAB PO SCH ×2 (17:22→21:20)
[2022-12-12] MEDS: methylPREDNISolone SOD SUCCI 40 MG/ML 1 ML VIAL IV SCH (17:22)
[2022-12-12 17:57] LABS: Glucose,Whole Blood 103 mg/dL (70-110)
[2022-12-12] MEDS: INSULIN ASPART (NovoLOG) 100 UNIT/ML VIAL SQ SCH (18:01)
[2022-12-12] MEDS: IPRATROPIUM 0.5 MG/2.5 ML NEBU INHALATION SCH ×2 (20:56→21:01)
[2022-12-12] MEDS: ALBUTEROL NEBULIZED 2.5 MG/3 ML INHALATION SCH ×2 (20:56)
[2022-12-12 21:14] LABS: Glucose,Whole Blood 216 mg/dL (70-110)
[2022-12-12] MEDS: FAMOTIDINE 20 MG TAB PO SCH (21:20)
[2022-12-13] MEDS: methylPREDNISolone SOD SUCCI 40 MG/ML 1 ML VIAL IV SCH ×2 (00:23→09:26)
[2022-12-13 06:06] LABS: Glucose,Whole Blood 186 mg/dL (70-110)
[2022-12-13] MEDS: INSULIN ASPART (NovoLOG) 100 UNIT/ML VIAL SQ SCH ×4 (06:09→22:27)
[2022-12-13] MEDS: PANTOPRAZOLE 40 MG TABLET PO SCH (06:43)
[2022-12-13] MEDS: LEVOTHYROXINE 112 MCG TAB PO SCH (06:43)
[2022-12-13] MEDS ORDERED: AMINOPHYLLINE 500 MG/20 ML VIAL IV PRN (09:05)
[2022-12-13] MEDS ORDERED: CAFFEINE CITRATE 60 MG/3 ML VIAL IV PRN (09:05)
--- NOTE | 2022-12-13 09:05 | P.CRDCN ---
History of Present Illness History of present illness: Patient is a pleasant 77-year-old female past medical history significant for diabetes, hypertension, dyslipidemia, coronary artery disease s/p CABG 2019 and peripheral arterial disease. She follows in the office with Dr. Jeffries. She had been in her normal state of health and then was coming back from the bathroom walking in the kitchen when she is started feeling lightheaded and not quite right. She denies any actual chest pain or shortness breath. She was grabbing onto furniture and trying to take it easy and came over to help her. She then was grabbing on the counter and fell back into her and lost consciousness. After waking she felt back to her normal self. 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 She does have recent UTI and was placed on antibiotics on . She denies any fevers, chills, urinary frequency or dysuria however. 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 She denies any actual pain when she eats however. Troponins noted to be normal 3. Telemetry reveals normal sinus rhythm. No history of arrhythmias. REVIEW OF SYSTEMS At the time of my exam: CONSTITUTIONAL: Denies fever or chills. CARDIOVASCULAR: Denies chest pain, shortness of breath, orthopnea, PND or palpitations. RESPIRATORY: Denies cough. GASTROINTESTINAL: Denies abdominal pain, diarrhea, constipation, nausea or vomiting. MUSCULOSKELETAL: Denies myalgias. NEUROLOGIC: Denies numbness, tingling or weakness. ENDOCRINE: Denies fatigue, weight change, polydipsia or polyurina. GENITOURINARY: Denies burning, hematuria or urgency with micturation. HEMATOLOGIC: Denies history of anemia or bleeding. PHYSICAL EXAMINATION Vital signs reviewed. CONSTITUTIONAL: No apparent distress. HEENT: Head is normocephalic. Pupils are equal, round. Sclerae anicteric. Mucous membranes of the mouth are moist. No JVD. No carotid bruit. CHEST EXAMINATION: Lungs are clear to auscultation. No chest wall tenderness is noted on palpation or with deep breathing. HEART EXAMINATION: Regular rate and rhythm. S1, S2 heard. No murmurs, gallops or rub. ABDOMEN: Soft, nontender. Positive bowel sounds. EXTREMITIES: 2+ peripheral pulses, no lower extremity edema and no calf tenderness. NEUROLOGIC EXAMINATION: Patient is awake, alert and oriented x3. ASSESSMENT 1. Syncope may be related to UTI and recent antibiotics however was not having significant angina-type symptoms when she originally had her bypass 2. History of syncope 2 other times in the shower 3. Hypertension 4. CAD status post CABG 5. PAD 6. 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 Symptoms not entirely consistent with chronic mesenteric ischemia however has had 30 pound weight loss 7. 30 pound and unintentional weight loss PLAN Patient with acute onset of not feeling well, unsteadiness and syncope. Symptoms may be related to the recent urinary tract infection and antibiotics started on however did not have much angina symptoms around the time of her bypass. Check echocardiogram as well as Lexiscan stress test to further evaluate. She does have CAT scan findings of abdominal aortic stenosis however should not be causing these symptoms. Likely a 30 day event monitor or possible loop recorder on discharge pending workup. Further recommendations to follow. GENERAL: Well-appearing, well-nourished and in no acute distress. NECK: Supple without JVD or thyromegaly. LUNGS: Breath sounds clear to auscultation bilaterally. Respiration equal and unlabored. No wheezes, rales or rhonchi. HEART: Regular rate and rhythm without murmurs, rubs or gallops. S1 and S2 heard. EXTREMITIES: Normal range of motion, no edema. No clubbing or cyanosis. Peripheral pulses intact. right radial site with significant ecchymosis noted, pulses strong. ASSESSMENT [id number] CT Known history of coronary artery disease Hypertension Dyslipidemia Peripheral vascular disease Former nicotine dependence PLAN Continue current medical regimen. Plans are for bypass surgery with Dr. Olivares next week. Continue aspirin, atorvastatin/zetia, lisinopril, imdur and toprol as previously ordered. Past Medical History Past Medical History: Coronary Artery Disease (CAD), Chest Pain / Angina, Diabetes Mellitus, Eye Disorder, Hyperlipidemia, Hypertension, Myocardial Infarc tion (CT), Myocardial Infarction (non Q-wave), Osteoarthritis (OA), Thyroid Disorder, Vascular Disorder Additional Past Medical History / Comment(s): 2000 HX ASHD, peripheral arterial disease, intermittent claudication involving infra renal aorta and rt and lt common iliac arteries (had stents palced), bilat cataracts, glaucoma L eye with stent. Last Myocardial Infarction Date:: History of Any Multi-Drug Resistant Organisms: None Reported Past Surgical History: Adenoidectomy, Heart Catheterization, Heart Catheterization With Stent, Tonsillectomy, Tubal Ligation Additional Past Surgical History / Comment(s): EXP. LAP 02/2012, STENT TO HEART X1, INFRARENAL AORTA STENT, STENTS TO RIGHT AND LEFT COMMONI ILLIAC ARTERIES. AORTOGRAM WITH RUNOFF 02/02/14 @ [facility] Past Anesthesia/Blood Transfusion Reactions: No Reported Reaction Additional Past Anesthesia/Blood Transfusion Reaction / Comment(s): pt states she has never had a blood transfusion Date of Last Stent Placement:: 2000 Past Psychological History: No Psychological Hx Reported Smoking Status: Former smoker Past Alcohol Use History: Occasional Past Drug Use History: None Reported - Past Family History Mother Family Medical History: Dementia Additional Family Medical History / Comment(s): HEART PROBLEMS Father Family Medical History: Coronary Artery Disease (CAD), Myocardial Infarction (CT) Additional Family Medical History / Comment(s): Her father at age 79 with a myocardial infarction. Medications and Allergies Home Medications Medication Instructions Recorded Confirmed Type Ergocalciferol [Vitamin D2 50,000 units PO Q14D 01/31/14 12/12/22 History (DRISDOL)] Ezetimibe [Zetia] 10 mg PO DAILY 01/31/14 12/12/22 History Clopidogrel [Plavix] 75 mg PO DAILY #30 tab 12/06/18 12/12/22 Rx Empagliflozin [Jardiance] 25 mg PO DAILY 11/13/19 12/12/22 History Levothyroxine Sodium [Synthroid] 112 mcg PO DAILY 11/13/19 12/12/22 History Metoprolol Tartrate [Lopressor] 100 mg PO BID 11/13/19 12/12/22 History metFORMIN HCL [metFORMIN HCL ER] 500 mg PO BID 11/13/19 12/12/22 History Aspirin 81 mg PO DAILY 12/13/19 12/12/22 History lisinopriL [Zestril] 10 mg PO DAILY 12/13/19 12/12/22 History Cyanocobalamin (Vitamin B-12) 1,000 mcg PO DAILY 12/12/22 12/12/22 History [Vitamin B-12] Famotidine [Pepcid] 20 mg PO BID 12/12/22 12/12/22 History Liraglutide [Victoza 3-Luiz] 1.8 mg SQ DAILY 12/12/22 12/12/22 History Nitrofurantoin Monohyd/M-Cryst 100 mg PO BID 12/12/22 12/12/22 History [Macrobid] Nystatin/Triamcin 1 applic TOPICAL DAILY PRN 12/12/22 12/12/22 History [Nystatin-Triamcinolone Cream] Pantoprazole [Protonix] 40 mg PO DAILY 12/12/22 12/12/22 History Potassium Chloride [Klor-Con 8] 8 meq PO DAILY 12/12/22 12/12/22 History Repaglinide [Prandin] 1 mg PO BID 12/12/22 12/12/22 History Allergies Allergy/AdvReac Type Severity Reaction Status Date / Time hydromorphone HCl Allergy RESPIRATORY Verified 07/20/21 04:03 [From Dilaudid] DEPRESSION Physical Exam Vitals: Vital Signs Temp Pulse Pulse Pulse Pulse Pulse Resp 12/13/22 07:00 97.5 F L 79 16 12/13/22 00:41 97.3 F L 84 18 12/12/22 21:20 97 96 18 L 104 H 18 12/12/22 21:11 72 12/12/22 20:57 76 12/12/22 19:12 98.1 F 18 L 18 12/12/22 15:44 97.9 F 87 16 12/12/22 14:45 98 18 12/12/22 13:23 101 H 18 12/12/22 11:25 97 96 104 H 18 12/12/22 09:15 97.8 F 95 18 BP BP BP BP BP Pulse Ox 12/13/22 07:00 135/70 97 12/13/22 00:41 161/66 93 L 12/12/22 21:20 12/12/22 21:11 12/12/22 20:57 12/12/22 19:12 128/69 96 12/12/22 15:44 148/70 97 12/12/22 14:45 140/60 95 12/12/22 13:23 141/59 12/12/22 11:25 134/71 142/72 147/58 96 12/12/22 09:15 149/69 99 Intake and Output 12/12/22 12/13/22 12/13/22 22:59 06:59 14:59 Other: Voiding Method Toilet # Voids 1 2 Results 12/12/22 09:27 12/12/22 09:27 Cardiac Enzymes 12/12/22 12/12/22 12/12/22 Range/Units 09:27 09:27 12:05 AST 52 H (14-36) U/L Troponin I <0.012 <0.012 (0.000-0.034) ng/mL 12/12/22 Range/Units 15:22 AST (14-36) U/L Troponin I <0.012 (0.000-0.034) ng/mL Coagulation 12/12/22 Range/Units 09:27 PT 11.0 (9.0-12.0) sec APTT 20.1 L (22.0-30.0) sec CBC 12/12/22 Range/Units 09:27 WBC 9.0 (3.8-10.6) k/uL RBC 4.28 (3.80-5.40) m/uL Hgb 12.4 (11.4-16.0) gm/dL Hct 37.0 (34.0-46.0) % Plt Count 171 (150-450) k/uL Comprehensive Metabolic Panel 12/12/22 Range/Units 09:27 Sodium 138 (137-145) mmol/L Potassium 3.7 (3.5-5.1) mmol/L Chloride 104 (98-107) mmol/L Carbon Dioxide 26 (22-30) mmol/L BUN 20 H (7-17) mg/dL Creatinine 1.14 H (0.52-1.04) mg/dL Glucose 127 H (74-99) mg/dL Calcium 9.1 (8.4-10.2) mg/dL AST 52 H (14-36) U/L ALT 62 H (4-34) U/L Alkaline Phosphatase 64 (38-126) U/L Total Protein 6.3 (6.3-8.2) g/dL Albumin 3.5 (3.5-5.0) g/dL Current Medications Generic Name Dose Route Start Last Admin Trade Name Freq PRN Reason Stop Dose Admin Acetaminophen 650 mg 12/12/22 11:23 Acetaminophen Tab 325 Mg Tab PO Q6HR PRN Mild Pain or Fever > 100.5 Albuterol Sulfate 2.5 mg 12/12/22 16:30 12/12/22 20:56 Albuterol Nebulized 2.5 Mg/3 Ml INHALATION 2.5 mg RT-TID [facility] Administration Aspirin 81 mg 12/13/22 09:00 Aspirin 81 Mg PO DAILY [facility] Calcium Carbonate/Glycine 1,000 mg 12/12/22 14:00 Calcium Carbonate 500 Mg Chewable PO Q4HR PRN Dyspepsia Clopidogrel Bisulfate 75 mg 12/13/22 09:00 Clopidogrel 75 Mg Tab PO DAILY [facility] Cyanocobalamin 1,000 mcg 12/13/22 09:00 Cyanocobalamin 500 Mcg Tab PO DAILY [facility] Dapagliflozin 10 mg 12/13/22 09:00 Dapagliflozin Propanediol 10 Mg Tablet PO DAILY [facility] Dextrose/Water 25 ml 12/12/22 14:01 Dextrose 50% Syringe 50 Ml IVP PER PROTOCOL PRN Hypoglycemia Protocol Dextrose/Water 50 ml 12/12/22 14:01 Dextrose 50% Syringe 50 Ml IVP PER PROTOCOL PRN Hypoglycemia Protocol Ezetimibe 10 mg 12/13/22 09:00 Ezetimibe 10 Mg Tab PO DAILY [facility] Famotidine 20 mg 12/12/22 21:00 12/12/22 21:20 Famotidine 20 Mg Tab PO 20 mg BID ANGELICA Administration Insulin Aspart 0 unit 12/12/22 17:30 12/13/22 06:09 Insulin Aspart (Novolog) 100 Unit/Ml Vial SQ Not Given AC-TID [facility] Protocol Ipratropium [place] 0.5 mg 12/12/22 16:30 12/12/22 21:01 Ipratropium 0.5 Mg/2.5 Ml Nebu INHALATION Not Given RT-TID [facility] Lactulose 20 gm 12/12/22 14:00 Lactulose 20 Gm/30 Ml Cup PO DAILY PRN Constipation Levothyroxine Sodium 112 mcg 12/13/22 06:30 12/13/22 06:43 Levothyroxine 112 Mcg Tab PO 112 mcg DAILY@0630 [facility] Administration Lorazepam 0.5 mg 03/18/23 14:00 Lorazepam 0.5 Mg Tab PO Q6HR PRN Anxiety Melatonin 3 mg 12/12/22 14:00 Melatonin 3 Mg Tablet PO HS PRN Insomnia Methylprednisolone Sodium Succinate 40 mg 12/12/22 16:30 12/13/22 00:23 Methylprednisolone Sod Succi 40 Mg/Ml 1 Ml Vial IV 40 mg Q8HR ANGELICA Administration Metoprolol Tartrate 100 mg 12/12/22 13:58 12/12/22 21:20 Metoprolol Tartrate 50 Mg Tab PO 100 mg BID ANGELICA Administration Naloxone HCl 0.2 mg 12/12/22 11:23 Naloxone 0.4 Mg/Ml 1 Ml Vial IV Q2M PRN Opioid Reversal Liraglutide [Victoza 1.8 mg 12/13/22 09:00 3-Luiz] 0.6 Mg/0.1 SQ Ml Ml DAILY ANGELICA Ondansetron HCl 4 mg 12/12/22 11:23 Ondansetron 4 Mg/2 Ml Vial IVP Q8HR PRN Nausea And Vomiting Pantoprazole Sodium 40 mg 12/12/22 14:00 12/13/22 06:43 Pantoprazole 40 Mg Tablet PO 40 mg DAILY@0730 ANGELICA Administration Intake and Output 12/12/22 12/13/22 12/13/22 22:59 06:59 14:59 Other: Voiding Method Toilet # Voids 1 2 12/12/22 09:27 12/12/22 09:27
[2022-12-13] MEDS: ALBUTEROL NEBULIZED 2.5 MG/3 ML INHALATION SCH ×3 (09:13→20:27)
[2022-12-13] MEDS: IPRATROPIUM 0.5 MG/2.5 ML NEBU INHALATION SCH ×3 (09:13→20:27)
[2022-12-13] MEDS: EZETIMIBE 10 MG TAB PO SCH (09:27)
[2022-12-13] MEDS: CLOPIDOGREL 75 MG TAB PO SCH (09:27)
[2022-12-13] MEDS: DAPAGLIFLOZIN PROPANEDIOL 10 MG TABLET PO SCH (09:27)
[2022-12-13] MEDS: CYANOCOBALAMIN 500 MCG TAB PO SCH (09:27)
[2022-12-13] MEDS: ASPIRIN 81 MG PO SCH (09:27)
[2022-12-13] MEDS: METOPROLOL TARTRATE 50 MG TAB PO SCH ×2 (09:27→20:40)
[2022-12-13] MEDS: Liraglutide [Victoza 3-Pak] 0.6 MG/0.1 ML Ml SQ SCH (09:30)
[2022-12-13] MEDS: FAMOTIDINE 20 MG TAB PO SCH ×2 (09:35→20:40)
--- NOTE | 2022-12-13 12:23 | P.CNPUL ---
History of Present Illness Consult date: 12/13/22 Requesting physician: Daryl Briceno Reason for consult: abnormal CXR/CT Chief complaint: Syncopal episode History of present illness: This is a very pleasant 77-year-old female patient with a known history of coronary artery disease with previous coronary artery bypass grafting, peripheral vascular disease with previous stents, diabetes mellitus, hypertension, hypothyroidism who presented here to the emergency room yesterday after sustaining MEL recent syncopal episode at home witnessed by her . She denied any previous symptoms. She had gotten up from bed and gone to the bathroom and was ambulating in the kitchen when this occurred. 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 She follows with cardiology and recently had a carotid Doppler that was reported as within normal limits. Echocardiogram is pending. EKG revealed sinus rhythm without any significant ST or T wave abnormalities. CT angiogram ruled out pulmonary embolism. There is moderate coarse interstitial pulmonary infiltrates consistent with pulmonary fibrosis. She had not been told about fibrosis in the past. She has no dry cough. No hemoptysis. No dyspnea on exertion. No home oxygen. Had not been seen by pulmonary before. White count 9.0. Hemoglobin 12.4. Sodium 138. Potassium 3.7. Bicarb 26. BUN 20. Creatinine 1.14. Glucose 127. Troponins were negative. Urine positive for bacteria and high white blood cells. She had been initiated on Macrobid 2 days prior to her syncopal episode. Culture pending. She is seen today in consultation on the regular medical floor. Sitting up in bed. Awake and alert in no acute distress. Maintaining good O2 saturations in the 90s on room air. Hoping to go home. No further syncopal episodes. Review of Systems REVIEW OF SYSTEMS: CONSTITUTIONAL: Denies any recent significant weight loss or weight gain. EYES: Denies change in vision. EARS, NOSE, MOUTH, THROAT: Denies headaches, denies sore throat. CARDIOVASCULAR: Denies chest pain, palpitations Positive for syncopal episode. RESPIRATORY: Denies shortness of breath, cough, congestion or hemoptysis. GASTROINTESTINAL: Denies change in appetite, denies abdominal pain GENITOURINARY: Denies hematuria, denies infections. MUSKULOSKELETAL: Denies pain, denies swelling. INTEGUMENTARY: Denies rash, denies eczema. NEUROLOGICAL: Denies recent memory loss, no recent seizure activity. PSYCHIATRIC: Denies anxiety, denies depression. HEMATOLOGIC/LYMPHATIC: Denies anemia, denies enlarged lymph nodes. Past Medical History Past Medical History: Coronary Artery Disease (CAD), Chest Pain / Angina, Diabetes Mellitus, Eye Disorder, Hyperlipidemia, Hypertension, Myocardial Infarction (MA), Myocardial Infarction (non Q-wave), Osteoarthritis (OA), Thyroid Disorder, Vascular Disorder Additional Past Medical History / Comment(s): 2000 HX ASHD, peripheral arterial disease, intermittent claudication involving infra renal aorta and rt and lt common iliac arteries (had stents palced), bilat cataracts, glaucoma L eye with stent. Last Myocardial Infarction Date:: History of Any Multi-Drug Resistant Organisms: None Reported Past Surgical History: Adenoidectomy, Heart Catheterization, Heart Catheterization With Stent, Tonsillectomy, Tubal Ligation Additional Past Surgical History / Comment(s): EXP. LAP 02/2012, STENT TO HEART X1, INFRARENAL AORTA STENT, STENTS TO RIGHT AND LEFT COMMONI ILLIAC ARTERIES. AORTOGRAM WITH RUNOFF 02/02/14 @ [facility] Past Anesthesia/Blood Transfusion Reactions: No Reported Reaction Additional Past Anesthesia/Blood Transfusion Reaction / Comment(s): pt states she has never had a blood transfusion Date of Last Stent Placement:: 2000 Past Psychological History: No Psychological Hx Reported Smoking Status: Former smoker Past Alcohol Use History: Occasional Past Drug Use History: None Reported - Past Family History Mother Family Medical History: Dementia Additional Family Medical History / Comment(s): HEART PROBLEMS Father Family Medical History: Coronary Artery Disease (CAD), Myocardial Infarction (MA) Additional Family Medical History / Comment(s): Her father at age 79 with a myocardial infarction. Medications and Allergies Home Medications Medication Instructions Recorded Confirmed Type Ergocalciferol [Vitamin D2 50,000 units PO Q14D 01/31/14 12/12/22 History (DRISDOL)] Ezetimibe [Zetia] 10 mg PO DAILY 01/31/14 12/12/22 History Clopidogrel [Plavix] 75 mg PO DAILY #30 tab 12/06/18 12/12/22 Rx Empagliflozin [Jardiance] 25 mg PO DAILY 11/13/19 12/12/22 History Levothyroxine Sodium [Synthroid] 112 mcg PO DAILY 11/13/19 12/12/22 History Metoprolol Tartrate [Lopressor] 100 mg PO BID 11/13/19 12/12/22 History metFORMIN HCL [metFORMIN HCL ER] 500 mg PO BID 11/13/19 12/12/22 History Aspirin 81 mg PO DAILY 12/13/19 12/12/22 History lisinopriL [Zestril] 10 mg PO DAILY 12/13/19 12/12/22 History Cyanocobalamin (Vitamin B-12) 1,000 mcg PO DAILY 12/12/22 12/12/22 History [Vitamin B-12] Famotidine [Pepcid] 20 mg PO BID 12/12/22 12/12/22 History Liraglutide [Victoza 3-Luiz] 1.8 mg SQ DAILY 12/12/22 12/12/22 History Nitrofurantoin Monohyd/M-Cryst 100 mg PO BID 12/12/22 12/12/22 History [Macrobid] Nystatin/Triamcin 1 applic TOPICAL DAILY PRN 12/12/22 12/12/22 History [Nystatin-Triamcinolone Cream] Pantoprazole [Protonix] 40 mg PO DAILY 12/12/22 12/12/22 History Potassium Chloride [Klor-Con 8] 8 meq PO DAILY 12/12/22 12/12/22 History Repaglinide [Prandin] 1 mg PO BID 12/12/22 12/12/22 History Allergies Allergy/AdvReac Type Severity Reaction Status Date / Time hydromorphone HCl Allergy RESPIRATORY Verified 07/20/21 04:03 [From Dilaudid] DEPRESSION Physical Exam Vitals: Vital Signs Temp Pulse Pulse Pulse Pulse Pulse Resp 12/13/22 09:27 93 12/13/22 09:13 90 12/13/22 07:00 97.5 F L 79 16 12/13/22 00:41 97.3 F L 84 18 12/12/22 21:20 97 96 18 L 104 H 18 12/12/22 21:11 72 12/12/22 20:57 76 12/12/22 19:12 98.1 F 18 L 18 12/12/22 15:44 97.9 F 87 16 12/12/22 14:45 98 18 12/12/22 13:23 101 H 18 BP BP Pulse Ox 12/13/22 09:27 12/13/22 09:13 12/13/22 07:00 135/70 97 12/13/22 00:41 161/66 93 L 12/12/22 21:20 12/12/22 21:11 12/12/22 20:57 12/12/22 19:12 128/69 96 12/12/22 15:44 148/70 97 12/12/22 14:45 140/60 95 12/12/22 13:23 141/59 Intake and Output 12/12/22 12/13/22 12/13/22 22:59 06:59 14:59 Other: Voiding Method Toilet # Voids 1 2 GENERAL EXAM: Alert, active, very pleasant 77-year-old female, on room air, comf ortable in no apparent distress. HEAD: Normocephalic. EYES: Normal reaction of pupils, equal size. NOSE: Clear with pink turbinates. THROAT: No erythema or exudates. NECK: No masses, no JVD. CHEST: No chest wall deformity. LUNGS: Equal air entry with faint crackles in the posterior bases, no wheeze, rhonchi or dullness. CVS: S1 and S2 normal with no audible murmur, regular rhythm. ABDOMEN: No hepatosplenomegaly, normal bowel sounds, no guarding or rigidity. SPINE: No scoliosis or deformity SKIN: No rashes CENTRAL NERVOUS SYSTEM: No focal deficits, tone is normal in all 4 extremities. EXTREMITIES: There is no peripheral edema. No clubbing, no cyanosis. Peripheral pulses are intact. Results - Laboratory Findings CBC and BMP: 12/12/22 09:27 12/12/22 09:27 PT/INR, D-dimer PT 11.0 sec (9.0-12.0) 12/12/22 09: INR 1.1 (<1.2) 12/12/22 09:27 Abnormal lab findings: Abnormal Labs 12/12/22 12/12/22 12/12/22 09:27 09:27 09:27 Lymphocytes # 0.8 L APTT 20.1 L BUN Creatinine Glucose POC Glucose (mg/dL) AST ALT Urine Appearance Cloudy H Urine Protein 1+ H Urine Glucose (UA) 4+ H Urine Ketones Trace H Urine Blood Small H Ur Leukocyte Esterase Large H Urine RBC 20 H Urine WBC >182 H Urine WBC Clumps Few H Urine Bacteria Rare H Urine Mucus Rare H Urine Yeast (Budding) Moderate H 12/12/22 12/12/22 12/13/22 09:27 21:13 06:05 Lymphocytes # APTT BUN 20 H Creatinine 1.14 H Glucose 127 H POC Glucose (mg/dL) 216 H 186 H AST 52 H ALT 62 H Urine Appearance Urine Protein Urine Glucose (UA) Urine Ketones Urine Blood Ur Leukocyte Esterase Urine RBC Urine WBC Urine WBC Clumps Urine Bacteria Urine Mucus Urine Yeast (Budding) - Diagnostic Findings Chest x-ray: image reviewed CT scan - chest: image reviewed Assessment and Plan Assessment: Syncopal episode of unclear etiology possibly related to dehydration and weakness secondary to urinary tract infection Urinary tract infection initiated on Macrobid in the outpatient setting, culture pending Interstitial lung disease/pulmonary fibrosis noted on computed tomography scan, to be worked up in the outpatient setting Coronary artery disease with previous coronary artery bypass grafting in 2019 Peripheral vascular disease with previous stent placement Severe atherosclerotic changes of the abdominal aorta with high-grade stenosis likely greater than 90% involving the mid abdominal aorta. Greater than 75% stenosis involving the SMA on computed tomography scan from 10/2022 Diabetes mellitus History of hypertension Hyperlipidemia Hypothyroidism Plan: The patient was seen and evaluated Chest x-ray, labs and CAT scan reviewed Suspect interstitial lung disease/pulmonary fibrosis Asymptomatic thus far, stable and on room air Discontinue IV Solu-Medrol Would recommend follow-up in our office to undergo pulmonary function testing Home once cleared by cardiology/medicine I have personally seen and examined the patient, performed the documentation and the assessment and plan as written. Number of minutes spent on the visit: 20.
[2022-12-13 12:39] LABS: Glucose,Whole Blood 355 mg/dL (70-110)
--- NOTE | 2022-12-13 14:54 | P.PN ---
Progress Note - Text Progress Note Date: 12/13/22 Chief Complaint: Short of breath This is a pleasant 77-year-old patient follows with Dr. Vaibhav Ac. Chronic stable medical conditions include CAD with stent, PAD with peripheral stents, diabetes, hypertension, hyperlipidemia, osteoarthritis,. Patient is accompanied by her in the ER. This morning when patient got up she was short of breath. Care with occasional noticed that she was unsteady in the feet. He has to how she was feeling she did state I cannot breathe. She went to the cupboard to get her medications. He got up to help her. Still feeling short of breath. Then she became limp and her arms. He then called 911. Patient was out for a short time. She became pale. Patient denies any fever and chills. Was doing fine previously. Denies any chest pain. Patient does get some lower extremity swelling in the evening. I ordered the computed tomography scan from the ER that did come back negative for PE. December 13: Admitted with shortness of breath. CT chest ruled out PE. Shows interstitial lung disease. Possible underlying COPD given long-time smoker. Started on steroids bronchodilators. Cardiac ischemia and arrhythmia in the differential. Patient's walk to the bathroom. No further shortness of breath. 4 nuclear stress test tomorrow. Seen by pulmonary, cardiology. Steroids discontinued. Active Medications Acetaminophen (Acetaminophen Tab 325 Mg Tab) 650 mg PO Q6HR PRN PRN Reason: Mild Pain or Fever > 100.5 Albuterol Sulfate (Albuterol Nebulized 2.5 Mg/3 Ml) 2.5 mg INHALATION RT-TID [facility] Last Admin: 12/13/22 12:10 Dose: 2.5 mg Aminophylline (Aminophylline 500 Mg/20 Ml Vial) 100 mg IV ONCE PRN PRN Reason: Patient Response Stop: 12/14/22 23:00 Aspirin (Aspirin 81 Mg) 81 mg PO DAILY [facility] Last Admin: 12/13/22 09:27 Dose: 81 mg Caffeine Citrate (Caffeine Citrate 60 Mg/3 Ml Vial) 60 mg IV ONCE PRN PRN Reason: Patient Response Stop: 12/14/22 23:00 Calcium Carbonate/Glycine (Calcium Carbonate 500 Mg Chewable) 1,000 mg PO Q4HR PRN PRN Reason: Dyspepsia Clopidogrel Bisulfate (Clopidogrel 75 Mg Tab) 75 mg PO DAILY [facility] Last Admin: 12/13/22 09:27 Dose: 75 mg Cyanocobalamin (Cyanocobalamin 500 Mcg Tab) 1,000 mcg PO DAILY [facility] Last Admin: 12/13/22 09:27 Dose: 1,000 mcg Dapagliflozin (Dapagliflozin Propanediol 10 Mg Tablet) 10 mg PO DAILY [facility] Last Admin: 12/13/22 09:27 Dose: 10 mg Dextrose/Water (Dextrose 50% Syringe 50 Ml) 25 ml IVP PER PROTOCOL PRN; Protocol PRN Reason: Hypoglycemia Dextrose/Water (Dextrose 50% Syringe 50 Ml) 50 ml IVP PER PROTOCOL PRN; Protocol PRN Reason: Hypoglycemia Ezetimibe (Ezetimibe 10 Mg Tab) 10 mg PO DAILY [facility] Last Admin: 12/13/22 09:27 Dose: 10 mg Famotidine (Famotidine 20 Mg Tab) 20 mg PO BID [facility] Last Admin: 12/13/22 09:35 Dose: Not Given Insulin Aspart (Insulin Aspart (Novolog) 100 Unit/Ml Vial) 0 unit SQ AC-TID [facility]; Protocol Last Admin: 12/13/22 12:57 Dose: 5 unit Ipratropium Rison (Ipratropium 0.5 Mg/2.5 Ml Nebu) 0.5 mg INHALATION RT-TID [facility] Last Admin: 12/13/22 12:10 Dose: 0.5 mg Lactulose (Lactulose 20 Gm/30 Ml Cup) 20 gm PO DAILY PRN PRN Reason: Constipation Levothyroxine Sodium (Levothyroxine 112 Mcg Tab) 112 mcg PO DAILY@0630 [facility] Last Admin: 12/13/22 06:43 Dose: 112 mcg Lorazepam (Lorazepam 0.5 Mg Tab) 0.5 mg PO Q6HR PRN PRN Reason: Anxiety Melatonin (Melatonin 3 Mg Tablet) 3 mg PO HS PRN PRN Reason: Insomnia Metoprolol Tartrate (Metoprolol Tartrate 50 Mg Tab) 100 mg PO BID [facility] Last Admin: 12/13/22 09:27 Dose: 100 mg Naloxone HCl (Naloxone 0.4 Mg/Ml 1 Ml Vial) 0.2 mg IV Q2M PRN PRN Reason: Opioid Reversal Liraglutide [Victoza 3-Luiz] 0.6 Mg/0.1 Ml Ml 1.8 mg SQ DAILY [facility] Last Admin: 12/13/22 09:30 Dose: Not Given Ondansetron HCl (Ondansetron 4 Mg/2 Ml Vial) 4 mg IVP Q8HR PRN PRN Reason: Nausea And Vomiting Pantoprazole Sodium (Pantoprazole 40 Mg Tablet) 40 mg PO DAILY@0730 [facility] Last Admin: 12/13/22 06:43 Dose: 40 mg Regadenoson (Regadenoson 0.4 Mg/5 Ml Syringe) 0.4 mg IV ONCE PRN PRN Reason: Per Protocol Stop: 12/13/22 13:06 Past medical history to include: CAD with stent, diabetes, hypertension, hyperlipidemia, osteoporosis, hypothyroid, PAD with stent Social history: Alcohol occasionally. Lives with her . Smoked for 40 years 2 packs a day stopped in 2003 Physical examination: VITAL SIGNS: 97.7, 87, 16, 124/63, 98% room air GENERAL: reclining in bed comfortable EYES: Pupils equal. Conjunctiva normal. HEENT: External appearance of nose and ears normal, oral cavity grossly normal. NECK: JVD not raised; masses not palpable. HEART: First and second heart sounds are normal; no edema. LUNGS: Respiratory rate normal; decreased breath sounds. ABDOMEN: Soft, nontender, liver spleen not palpable, no masses palpable. PSYCH: Alert and oriented x3; mood and affect normal. MUSCULOSKELETAL:No Clubbing/cyanosis;muscles-grossly intact. OA INVESTIGATIONS, reviewed in the clinical context: White count 19 hemoglobin 12.4 platelets 171 sodium 138 potassium 3.7 BUN 20 creatinine 1.14 Troponin I less than 0.012, 0.012 UA: Leukoesterase positive, WBC 1-1 each 2, nitrite negative EKG tracing personally reviewed by me-normal sinus rhythm. Rate 88 Chest x-ray film personally reviewed by me-cardiomegaly. Interstitial prominence CT chest angiogram for PE: Coarse reticular interstitial infiltrate in both lungs. Few calcified gallstones. No PE. Assessment and plan: -Patient woke up feeling short of breath symptoms progressively got worse. Patient gently passed out. Not found to be orthostatic in the ER. No chest pressure. Troponin negative. CT chest ruled out PE. Does show interstitial prominence. Patient does smoke for many years. Silent cardiac ischemia/arrhythmia in the differential. Serial troponin. Telemetry. -Interstitial lung disease. No prior documentation. IV [id number]. Followed by pulmonary. -Acute COPD exacerbation in an ex-smoker: Better DuoNeb. IV [id number] -CAD with prior history of stent Aspirin. Plavix. Telemetry. Seen by cardiology. Stress test tomorrow -PAD with prior intervention Aspirin, Plavix, Zetia -Diabetes mellitus type 2, on oral hypoglycemic Jardiance, metformin, and Victoza, Prandin. Follow Accu-Cheks and sliding scale -Primary osteoarthritis Tylenol when necessary -Hypothyroid Synthroid -Essential hypertension Lisinopril, Lopressor -Full code Seen by pulmonary and cartilage E. IV Solu-Medrol discontinued. for 2-D echocardiogram stress test tomorrow. Arrhythmia cardiac ischemia in the differential. Increase activity
[2022-12-13 17:19] LABS: Glucose,Whole Blood 447 mg/dL (70-110)
[2022-12-13] MEDS ORDERED: INSULIN DETEMIR (LEVEMIR) 100 UNIT/ML SYR SQ ONE (19:00)
[2022-12-13 21:23] LABS: Glucose,Whole Blood 419 mg/dL (70-110)
[2022-12-14 03:16] LABS: Glucose,Whole Blood 163 mg/dL (70-110)
[2022-12-14 06:14] LABS: Glucose,Whole Blood 128 mg/dL (70-110)
[2022-12-14] MEDS: INSULIN ASPART (NovoLOG) 100 UNIT/ML VIAL SQ SCH ×4 (06:14→20:48)
[2022-12-14] MEDS: PANTOPRAZOLE 40 MG TABLET PO SCH (06:38)
[2022-12-14] MEDS: LEVOTHYROXINE 112 MCG TAB PO SCH (06:38)
[2022-12-14] MEDS ORDERED: REGADENOSON 0.4 MG/5 ML SYRINGE IV PRN (07:00)
[2022-12-14] MEDS ORDERED: REGADENOSON 0.4 MG/5 ML SYRINGE IV ONE (08:00)
[2022-12-14] MEDS: IPRATROPIUM 0.5 MG/2.5 ML NEBU INHALATION SCH ×3 (08:12→19:52)
[2022-12-14] MEDS: ALBUTEROL NEBULIZED 2.5 MG/3 ML INHALATION SCH ×3 (08:12→19:52)
[2022-12-14] MEDS: FAMOTIDINE 20 MG TAB PO SCH ×2 (09:06→20:43)
[2022-12-14] MEDS: CYANOCOBALAMIN 500 MCG TAB PO SCH (09:06)
[2022-12-14] MEDS: DAPAGLIFLOZIN PROPANEDIOL 10 MG TABLET PO SCH (09:06)
[2022-12-14] MEDS: ASPIRIN 81 MG PO SCH (09:06)
[2022-12-14] MEDS: CLOPIDOGREL 75 MG TAB PO SCH (09:06)
[2022-12-14] MEDS: EZETIMIBE 10 MG TAB PO SCH (09:06)
[2022-12-14] MEDS: METOPROLOL TARTRATE 50 MG TAB PO SCH ×2 (09:07→20:43)
[2022-12-14] MEDS: Liraglutide [Victoza 3-Pak] 0.6 MG/0.1 ML Ml SQ SCH (09:07)
--- NOTE | 2022-12-14 09:25 | P.PN ---
Subjective Progress Note Date: 12/14/22 History of present illness: Patient is a pleasant 77-year-old female past medical history significant for diabetes, hypertension, dyslipidemia, coronary artery disease s/ p CABG 2018 and peripheral arterial disease. She follows in the office with Dr. Jeffries. She had been in her normal state of health and then was coming back from the bathroom walking in the kitchen when she is started feeling lightheaded and not quite right. She denies any actual chest pain or shortness breath. She was grabbing onto furniture and trying to take it easy and came over to help her. She then was grabbing on the counter and fell back into her and lost consciousness. After waking she felt back to her normal self. 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 She does have recent UTI and was placed on antibiotics on . She denies any fevers, chills, urinary frequency or dysuria however. 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 She denies any actual pain when she eats however. Troponins noted to be normal 3. Telemetry reveals normal sinus rhythm. No history of arrhythmias. 12/14 Last evening, patient states she had one very short episode of chest pain that went away on its own. She denies having any shortness of breath, no dizziness. No lower extremity edema. She is scheduled for Lexiscan stress test today PHYSICAL EXAMINATION Vital signs reviewed. CONSTITUTIONAL: No apparent distress. HEENT: Head is normocephalic. Pupils are equal, round. Sclerae anicteric. Mucous membranes of the mouth are moist. No JVD. No carotid bruit. CHEST EXAMINATION: Lungs are clear to auscultation. No chest wall tenderness is noted on palpation or with deep breathing. HEART EXAMINATION: Regular rate and rhythm. S1, S2 heard. No murmurs, gallops or rub. ABDOMEN: Soft, nontender. Positive bowel sounds. EXTREMITIES: 2+ peripheral pulses, no lower extremity edema and no calf tenderness. NEUROLOGIC EXAMINATION: Patient is awake, alert and oriented x3. ASSESSMENT 1. Syncope may be related to UTI and recent antibiotics however was not having significant angina-type symptoms when she originally had her bypass 2. History of syncope 2 other times in the shower 3. Hypertension 4. CAD status post CABG 5. PAD 6. 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 Symptoms not entirely consistent with chronic mesenteric ischemia however has had 30 pound weight loss 7. 30 pound and unintentional weight loss PLAN Patient with acute onset of not feeling well, unsteadiness and syncope. Symptoms may be related to the recent urinary tract infection and antibiotics started on however did not have much angina symptoms around the time of her bypass. Check echocardiogram as well as Lexiscan stress test to further evaluate. If Lexiscan and echocardiogram within normal limits, patient is cleared from cardiology for discharge home and may follow up in the office with Dr. Jeffries in 1-2 weeks. Nurse practitioner note has been reviewed, I agree with the documented findings and plan of care. Patient was seen and examined. Objective - Vital Signs Vital signs: Vital Signs Temp 97.6 F 12/14/22 07:00 Pulse 71 12/14/22 07:00 Resp 18 12/14/22 07:00 BP 93/50 12/14/22 07:00 Pulse Ox 99 12/14/22 07:00 FiO2 Intake & Output 12/13/22 12/14/22 12/14/22 18:59 06:59 18:59 Intake Total 236 Balance 236 Intake: Oral 236 Other: Voiding Method Toilet # Voids 3 3 - Labs CBC & Chem 7: 12/12/22 09:27 12/12/22 09:27 Labs: Abnormal Lab Results - Last 24 Hours (Table) 12/13/22 12/13/22 12/13/22 Range/Units 12:37 17:18 21:22 POC Glucose (mg/dL) 355 H 447 H 419 H (70-110) mg/dL 12/14/22 12/14/22 Range/Units 03:15 06:13 POC Glucose (mg/dL) 163 H 128 H (70-110) mg/dL Microbiology - Last 24 Hours (Table) 12/12/22 09:27 Urine Culture - Preliminary Urine,Voided Strep agalactiae - (group b) Yeast species
--- NOTE | 2022-12-14 11:35 | P.PN ---
Subjective Progress Note Date: 12/14/22 This is a very pleasant 77-year-old female patient with a known history of coronary artery disease with previous coronary artery bypass grafting, peripheral vascular disease with previous stents, diabetes mellitus, hypertension, hypothyroidism who presented here to the emergency room yesterday after sustaining MEL recent syncopal episode at home witnessed by her . She denied any previous symptoms. She had gotten up from bed and gone to the bathroom and was ambulating in the kitchen when this occurred. 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 She follows with cardiology and recently had a carotid Doppler that was reported as within normal limits. Echocardiogram is pending. EKG revealed sinus rhythm without any significant ST or T wave abnormalities. CT angiogram ruled out pulmonary embolism. There is moderate coarse interstitial pulmonary infiltrates consistent with pulmonary fibrosis. She had not been told about fibrosis in the past. She has no dry cough. No hemoptysis. No dyspnea on exertion. No home oxygen. Had not been seen by pulmonary before. White count 9.0. Hemoglobin 12.4. Sodium 138. Potassium 3.7. Bicarb 26. BUN 20. Creatinine 1.14. Glucose 127. Troponins were negative. Urine positive for bacteria and high white blood cells. She had been initiated on Macrobid 2 days prior to her syncopal episode. Culture pending. She is seen today in consultation on the regular medical floor. Sitting up in bed. Awake and alert in no acute distress. Maintaining good O2 saturations in the 90s on room air. Hoping to go home. No further syncopal episodes. The patient is seen today 12/14/2022 in follow-up on the regular medical floor. She is currently sitting up in a chair at the bedside. Awake and alert in no acute distress. Maintaining good O2 saturations in the 90s on room air. No dry cough. No congestion. No further syncopal episodes. Urine culture positive for strep agalactiae group B and yeast species. The plan is for stress test and echocardiogram today per cardiology. Objective - Vital Signs Vital signs: Vital Signs Temp 97.6 F 12/14/22 07:00 Pulse 80 12/14/22 08:33 Resp 18 12/14/22 07:00 BP 93/50 12/14/22 07:00 Pulse Ox 99 12/14/22 07:00 FiO2 Intake & Output 12/13/22 12/14/22 12/14/22 18:59 06:59 18:59 Intake Total 236 Balance 236 Intake: Oral 236 Other: Voiding Method Toilet # Voids 3 3 - Exam GENERAL EXAM: Alert, pleasant 77-year-old female, on room air, up in a chair at the bedside, comfortable in no apparent distress. HEAD: Normocephalic. EYES: Normal reaction of pupils, equal size. NOSE: Clear with pink turbinates. THROAT: No erythema or exudates. NECK: No masses, no JVD. CHEST: No chest wall deformity. LUNGS: Equal air entry with faint crackles in the posterior bases, no wheeze, rhonchi or dullness. CVS: S1 and S2 normal with no audible murmur, regular rhythm. ABDOMEN: No hepatosplenomegaly, normal bowel sounds, no guarding or rigidity. SPINE: No scoliosis or deformity SKIN: No rashes CENTRAL NERVOUS SYSTEM: No focal deficits, tone is normal in all 4 extremities. EXTREMITIES: There is no peripheral edema. No clubbing, no cyanosis. Peripheral pulses are intact. - Labs CBC & Chem 7: 12/12/22 09:27 12/12/22 09:27 Labs: Abnormal Lab Results - Last 24 Hours (Table) 12/13/22 12/13/22 12/13/22 Range/Units 12:37 17:18 21:22 POC Glucose (mg/dL) 355 H 447 H 419 H (70-110) mg/dL 12/14/22 12/14/22 Range/Units 03:15 06:13 POC Glucose (mg/dL) 163 H 128 H (70-110) mg/dL Microbiology - Last 24 Hours (Table) 12/12/22 09:27 Urine Culture - Preliminary Urine,Voided Strep agalactiae - (group b) Yeast species Assessment and Plan Assessment: Syncopal episode of unclear etiology possibly related to dehydration and weakness secondary to urinary tract infection. Stress test and echocardiogram pending. Urinary tract infection initiated on Macrobid in the outpatient setting, culture pending Interstitial lung disease/pulmonary fibrosis noted on computed tomography scan, to be worked up in the outpatient setting Coronary artery disease with previous coronary artery bypass grafting in 2019 Peripheral vascular disease with previous stent placement Severe atherosclerotic changes of the abdominal aorta with high-grade stenosis likely greater than 90% involving the mid abdominal aorta. Greater than 75% stenosis involving the SMA on computed tomography scan from 10/2022 Diabetes mellitus History of hypertension Hyperlipidemia Hypothyroidism Plan: The patient was seen and evaluated Labs and medication reviewed Suspect interstitial lung disease/pulmonary fibrosis Asymptomatic thus far, stable and on room air Follow-up in our office to undergo pulmonary function testing Home once cleared by cardiology/medicine I have personally seen and examined the patient, performed the documentation and the assessment and plan as written. Number of minutes spent on the visit: 10.
--- NOTE | 2022-12-14 12:13 | CA ---
Transthoracic Echo Report Name: Sangeeta Vinson Age: 77 Gender: F : 1945 Exam Date: 12/14/2022 11:32 Exam Location: [facility] Ht (in): 62 Wt (lb): 145 Ordering Physician: Daryl Briceno MD Attending/Referring Phys: Housekeeper Home Nancy Willett RDCS Procedure CPT: Indications: Cardiomegaly Cardiac Hx: Technical Quality: Fair Contrast 1: Total Dose (mL): Contrast 2: Total Dose (mL): MEASUREMENTS (Male / Female) Normal Values 2D ECHO LV Diastolic Diameter PLAX 3.7 cm 4.2 - 5.9 / 3.9 - 5.3 cm LV Systolic Diameter PLAX 2.9 cm IVS Diastolic Thickness 1.0 cm 0.6 - 1.0 / 0.6 - 0.9 cm LVPW Diastolic Thickness 1.1 cm 0.6 - 1.0 / 0.6 - 0.9 cm LV Relative Wall Thickness 0.6 RV Internal Dim ED PLAX 3.5 cm LA Volume 47.8 cm??? 18 - 58 / 22 - 52 cm??? M-MODE Aortic Root Diameter MM 2.6 cm LA Systolic Diameter MM 4.7 cm LA Ao Ratio MM 1.8 AV Cusp Separation MM 1.4 cm DOPPLER AV Peak Velocity 192.9 cm/s AV Peak Gradient 14.9 mmHg AV Mean Velocity 145.7 cm/s AV Mean Gradient 9.2 mmHg AV Velocity Time Integral 49.6 cm LVOT Peak Velocity 83.3 cm/s LVOT Peak Gradient 2.8 mmHg LVOT Velocity Time Integral 21.2 cm MV Area PHT 3.0 cm??? Mitral E Point Velocity 133.3 cm/s Mitral A Point Velocity 119.8 cm/s Mitral E to A Ratio 1.1 MV Deceleration Time 252.6 ms TR Peak Velocity 252.6 cm/s TR Peak Gradient 25.5 mmHg Right Ventricular Systolic Press 29.7 mmHg FINDINGS Left Ventricle Mildly increased left ventricular wall thickness. Normal left ventricular systolic function with no obvious regional wall motion abnormalities. Left ventricular cavity size normal. Left ventricular ejection fraction is estimated at 55-60 %. Right Ventricle Mild right ventricular dilatation. Right ventricular systolic pressure within normal limits. Right Atrium Normal right atrial size. Left Atrium Normal left atrial size. Mitral Valve Structurally normal mitral valve. Mitral valve thickened. Moderate mitral annular calcification. Mild mitral regurgitation. Aortic Valve Trileaflet aortic valve. No aortic stenosis. Trace aortic regurgitation. Diffuse thickening (sclerosis) of the aortic valve cusps without reduced excursion. Aortic valve sclerosis. Tricuspid Valve Structurally normal tricuspid valve. Mild tricuspid regurgitation. Pulmonic Valve Structurally normal pulmonic valve. Pericardium No pericardial effusion. Aorta Normal size aortic root and proximal ascending aorta. CONCLUSIONS 1. Normal left ventricle size and systolic function 2. Aortic sclerosis with no significant stenosis 3. Mild mitral and tricuspid regurgitation Previewed by: Dr. Danny Schrader MD (Electronically Signed) Final Date: 14 December 2022 12:12
[2022-12-14 13:29] VITALS: BMI 26.5
[2022-12-14 13:33] LABS: Glucose,Whole Blood 198 mg/dL (70-110)
--- NOTE | 2022-12-14 13:35 | CA ---
Lexiscan Nuclear Stress Test Report Name: Sangeeta Vinson Exam Date: 12/14/2022 12:11 Exam Location: [facility] Ht (in): 62 Wt (lb): 145 BSA: 1.67 Ordering Phys: Ortega De Jesus DO Referring Phys: MALATHI EARLY,, Technologist: Delmar Renteria Age: 77 Gender: F : 1945 Procedure CPT: Indications: Reflex order-Stress test ICD-10 Codes: Patient History: DIFFICULTY IN BREATHING, HTN, DIABETIC, ELEVATED CHOLESTEROL LEVELS, FAMILY HX OF HEART DISEASE, FORMER SMOKER - QUIT 20 YEARS AGO, PRIO SC, PRIOR CATH WITH STENTING, CABG X 3 Medications: Meds past 24 hrs: Pretest Chest Pain: STRESS TEST Lexiscan Protocol Exercise Duration (min:sec): 02:[address] Depressions (mm): Angina Score: Abdi Score: Resting HR (bpm): 74 Peak HR (bpm): 85 Resting BP (mmHg): 143 / 51 Peak BP (mmHg): 143 / 51 MPHR: 142 Target HR: 121 % MPHR: 60 METS: 1.0 Total Dose: Peak Dose: Atropine: Double Product: 73341 BP Response: Stress Termination: INFUSION COMPLETE Stress Symptoms: NO SYMPTOMS Stress Summary: ECG ANALYSIS Resting ECG: Sinus rhythm. Normal conduction. No arrhythmias. Normal repolarization. Stress ECG: No ECG changes from baseline with Lexiscan infusion. CONCLUSIONS No ECG evidence of ischemia with Lexiscan infusion. Nuclear test results to follow. Dr. Danny Schrader MD (Electronically Signed) Final Date: 14 December 2022 13:34
--- NOTE | 2022-12-14 14:19 | NM ---
EXAMINATION TYPE: NM stress lexiscan cardiolite DATE OF EXAM: 12/14/2022 COMPARISON: NONE HISTORY: Syncope TECHNIQUE: After the intravenous administration of 9.6 mCi Tc 99m Sestamibi - Cardiolite resting SPE CT images acquired 45 minutes post injection. The patient received 0.4mg Lexiscan, 24.3 mCi Tc 99m Sestamibi - Stress images obtained [address] injection FINDINGS: Review of stress and rest SPECT images demonstrates questionable area of stress-induced reversible is chemia involving the anterior wall.. Gated analysis shows normal wall motion with an estimated left ventricular ejection fraction of 75 %. IMPRESSION: 1. Cannot exclude a small area of stress-induced and reversibility involving the anterolateral myocar dium correlate clinically..
[2022-12-14 17:47] LABS: Glucose,Whole Blood 305 mg/dL (70-110)
--- NOTE | 2022-12-14 18:44 | P.PN ---
Progress Note - Text Progress Note Date: 12/14/22 Chief Complaint: Short of breath This is a pleasant 77-year-old patient follows with Dr. Vaibhav Ac. Chronic stable medical conditions include CAD with stent, PAD with peripheral stents, diabetes, hypertension, hyperlipidemia, osteoarthritis,. Patient is accompanied by her in the ER. This morning when patient got up she was short of breath. Care with occasional noticed that she was unsteady in the feet. He has to how she was feeling she did state I cannot breathe. She went to the cupboard to get her medications. He got up to help her. Still feeling short of breath. Then she became limp and her arms. He then called 911. Patient was out for a short time. She became pale. Patient denies any fever and chills. Was doing fine previously. Denies any chest pain. Patient does get some lower extremity swelling in the evening. I ordered the computed tomography scan from the ER that did come back negative for PE. December 13: Admitted with shortness of breath. CT chest ruled out PE. Shows interstitial lung disease. Possible underlying COPD given long-time smoker. Started on steroids bronchodilators. Cardiac ischemia and arrhythmia in the differential. Patient's walk to the bathroom. No further shortness of breath. 4 nuclear stress test tomorrow. Seen by pulmonary, cardiology. Steroids discontinued. December 14: Comfortable in bed. Underwent a nuclear stress test. Should a small area of stress-induced reversibility. Including the anterolateral myocardium. Possibly cardiac catheterization tomorrow. No chest pain Active Medications Acetaminophen (Acetaminophen Tab 325 Mg Tab) 650 mg PO Q6HR PRN PRN Reason: Mild Pain or Fever > 100.5 Albuterol Sulfate (Albuterol Nebulized 2.5 Mg/3 Ml) 2.5 mg INHALATION RT-TID [facility] Last Admin: 12/14/22 11:04 Dose: Not Given Aminophylline (Aminophylline 500 Mg/20 Ml Vial) 100 mg IV ONCE PRN PRN Reason: Patient Response Stop: 12/14/22 23:00 Aspirin (Aspirin 81 Mg) 81 mg PO DAILY [facility] Last Admin: 12/14/22 09:06 Dose: 81 mg Caffeine Citrate (Caffeine Citrate 60 Mg/3 Ml Vial) 60 mg IV ONCE PRN PRN Reason: Patient Response Stop: 12/14/22 23:00 Calcium Carbonate/Glycine (Calcium Carbonate 500 Mg Chewable) 1,000 mg PO Q4HR PRN PRN Reason: Dyspepsia Clopidogrel Bisulfate (Clopidogrel 75 Mg Tab) 75 mg PO DAILY [facility] Last Admin: 12/14/22 09:06 Dose: 75 mg Cyanocobalamin (Cyanocobalamin 500 Mcg Tab) 1,000 mcg PO DAILY [facility] Last Admin: 12/14/22 09:06 Dose: 1,000 mcg Dapagliflozin (Dapagliflozin Propanediol 10 Mg Tablet) 10 mg PO DAILY [facility] Last Admin: 12/14/22 09:06 Dose: 10 mg Dextrose/Water (Dextrose 50% Syringe 50 Ml) 25 ml IVP PER PROTOCOL PRN; Protocol PRN Reason: Hypoglycemia Dextrose/Water (Dextrose 50% Syringe 50 Ml) 50 ml IVP PER PROTOCOL PRN; Protocol PRN Reason: Hypoglycemia Ezetimibe (Ezetimibe 10 Mg Tab) 10 mg PO DAILY [facility] Last Admin: 12/14/22 09:06 Dose: 10 mg Famotidine (Famotidine 20 Mg Tab) 20 mg PO BID [facility] Last Admin: 12/14/22 09:06 Dose: 20 mg Insulin Aspart (Insulin Aspart (Novolog) 100 Unit/Ml Vial) 0 unit SQ ACHS [facility]; Protocol Last Admin: 12/14/22 14:37 Dose: Not Given Ipratropium Rienzi (Ipratropium 0.5 Mg/2.5 Ml Nebu) 0.5 mg INHALATION RT-TID [facility] Last Admin: 12/14/22 15:38 Dose: Not Given Lactulose (Lactulose 20 Gm/30 Ml Cup) 20 gm PO DAILY PRN PRN Reason: Constipation Levothyroxine Sodium (Levothyroxine 112 Mcg Tab) 112 mcg PO DAILY@0630 [facility] Last Admin: 12/14/22 06:38 Dose: 112 mcg Lorazepam (Lorazepam 0.5 Mg Tab) 0.5 mg PO Q6HR PRN PRN Reason: Anxiety Melatonin (Melatonin 3 Mg Tablet) 3 mg PO HS PRN PRN Reason: Insomnia Metoprolol Tartrate (Metoprolol Tartrate 50 Mg Tab) 100 mg PO BID [facility] Last Admin: 12/14/22 09:07 Dose: 100 mg Naloxone HCl (Naloxone 0.4 Mg/Ml 1 Ml Vial) 0.2 mg IV Q2M PRN PRN Reason: Opioid Reversal Liraglutide [Victoza 3-Luiz] 0.6 Mg/0.1 Ml Ml 1.8 mg SQ DAILY [facility] Last Admin: 12/14/22 09:07 Dose: Not Given Ondansetron HCl (Ondansetron 4 Mg/2 Ml Vial) 4 mg IVP Q8HR PRN PRN Reason: Nausea And Vomiting Pantoprazole Sodium (Pantoprazole 40 Mg Tablet) 40 mg PO DAILY@0730 [facility] Last Admin: 12/14/22 06:38 Dose: 40 mg Regadenoson (Regadenoson 0.4 Mg/5 Ml Syringe) 0.4 mg IV ONCE PRN PRN Reason: Per Protocol Stop: 12/15/22 07:01 Past medical history to include: CAD with stent, diabetes, hypertension, hyperlipidemia, osteoporosis, hypothyroid, PAD with stent Social history: Alcohol occasionally. Lives with her . Smoked for 40 years 2 packs a day stopped in 2003 Physical examination: VITAL SIGNS: 97.5, 67, 18, 120/67, 100% room air GENERAL: reclining in bed comfortable EYES: Pupils equal. Conjunctiva normal. HEENT: External appearance of nose and ears normal, oral cavity grossly normal. NECK: JVD not raised; masses not palpable. HEART: First and second heart sounds are normal; no edema. LUNGS: Respiratory rate normal; decreased breath sounds. ABDOMEN: Soft, nontender, liver spleen not palpable, no masses palpable. PSYCH: Alert and oriented x3; mood and affect normal. MUSCULOSKELETAL:No Clubbing/cyanosis;muscles-grossly intact. OA INVESTIGATIONS, reviewed in the clinical context: 2-D echocardiogram: EF 55-60%. Aortic sclerosis. Nuclear stress test: Small area of reversibility in the anterior lateral wall. White count 19 hemoglobin 12.4 platelets 171 sodium 138 potassium 3.7 BUN 20 creatinine 1.14 Troponin I less than 0.012, 0.012 UA: Leukoesterase positive, WBC 1-1 each 2, nitrite negative EKG tracing personally reviewed by me-normal sinus rhythm. Rate 88 Chest x-ray film personally reviewed by me-cardiomegaly. Interstitial prominence CT chest angiogram for PE: Coarse reticular interstitial infiltrate in both lungs. Few calcified gallstones. No PE. Assessment and plan: -Patient woke up feeling short of breath symptoms progressively got worse. Patient gently passed out. Not found to be orthostatic in the ER. No chest pressure. Troponin negative. CT chest ruled out PE. Does show interstitial prominence. Patient does smoke for many years. Silent cardiac ischemia/arrhythmia in the differential. Nuclear stress test showing a small area of reversibility. Possible cardiac cath tomorrow. -Interstitial lung disease. No prior documentation. IV [id number]. Followed by pulmonary. -Acute COPD exacerbation in an ex-smoker: Better DuoNeb. IV [id number] -CAD with prior history of stent Aspirin. Plavix. Telemetry. Seen by cardiology. Stress test tomorrow -PAD with prior intervention Aspirin, Plavix, Zetia -Diabetes mellitus type 2, on oral hypoglycemic Jardiance, metformin, and Victoza, Prandin. Follow Accu-Cheks and sliding scale -Primary osteoarthritis Tylenol when necessary -Hypothyroid Synthroid -Essential hypertension Lisinopril, Lopressor -Full code Possible cardiac cath tomorrow. Keep nothing by mouth after midnight except for medications. Follow
[2022-12-14 20:46] LABS: Glucose,Whole Blood 281 mg/dL (70-110)
[2022-12-14] MEDS: INSULIN DETEMIR (LEVEMIR) 100 UNIT/ML SYR SQ SCH (20:48)
[2022-12-15 06:10] LABS: Glucose,Whole Blood 72 mg/dL (70-110)
[2022-12-15] MEDS: INSULIN ASPART (NovoLOG) 100 UNIT/ML VIAL SQ SCH ×4 (06:11→21:51)
[2022-12-15] MEDS: PANTOPRAZOLE 40 MG TABLET PO SCH (06:13)
[2022-12-15] MEDS: LEVOTHYROXINE 112 MCG TAB PO SCH (06:13)
[2022-12-15 06:34] LABS: Glucose,Whole Blood 79 mg/dL (70-110)
[2022-12-15] MEDS ORDERED: HEPARIN SODIUM,PORCINE 10,000 UNIT in SODIUM CHLORIDE 0.9% 1,000 ML IRRIGATION PRN (07:00)
[2022-12-15] MEDS ORDERED: HEPARIN SODIUM,PORCINE 2,500 UNIT in SODIUM CHLORIDE 0.9% 250 ML IRRIGATION PRN (07:00)
[2022-12-15] MEDS ORDERED: ATORVASTATIN 80 MG TAB PO STA (08:09)
[2022-12-15] MEDS ORDERED: ASPIRIN 325 MG TAB PO STA (08:09)
[2022-12-15] MEDS ORDERED: ALPRAZolam 0.25 MG TAB PO PRN (08:09)
[2022-12-15] MEDS ORDERED: NITROGLYCERIN SL TABS 0.4 MG TAB SUBLINGUAL PRN (08:09)
[2022-12-15] MEDS ORDERED: ALPRAZolam 0.5 MG TAB PO PRN (08:09)
[2022-12-15] MEDS: CYANOCOBALAMIN 500 MCG TAB PO SCH (09:37)
[2022-12-15] MEDS: DAPAGLIFLOZIN PROPANEDIOL 10 MG TABLET PO SCH (09:38)
[2022-12-15] MEDS: FAMOTIDINE 20 MG TAB PO SCH ×2 (09:38→20:36)
[2022-12-15] MEDS: Liraglutide [Victoza 3-Pak] 0.6 MG/0.1 ML Ml SQ SCH (09:38)
[2022-12-15] MEDS: CLOPIDOGREL 75 MG TAB PO SCH (09:38)
[2022-12-15] MEDS: EZETIMIBE 10 MG TAB PO SCH (09:38)
[2022-12-15] MEDS: METOPROLOL TARTRATE 50 MG TAB PO SCH ×2 (09:38→20:47)
[2022-12-15] MEDS: ALBUTEROL NEBULIZED 2.5 MG/3 ML INHALATION SCH ×3 (09:45→20:33)
[2022-12-15] MEDS: IPRATROPIUM 0.5 MG/2.5 ML NEBU INHALATION SCH ×3 (09:46→20:33)
--- NOTE | 2022-12-15 11:43 | P.PN ---
Subjective Progress Note Date: 12/15/22 History of present illness: Patient is a pleasant 77-year-old female past medical history significant for diabetes, hypertension, dyslipidemia, coronary artery disease s/ p CABG 2018 and peripheral arterial disease. She follows in the office with Dr. Jeffries. She had been in her normal state of health and then was coming back from the bathroom walking in the kitchen when she is started feeling lightheaded and not quite right. She denies any actual chest pain or shortness breath. She was grabbing onto furniture and trying to take it easy and came over to help her. She then was grabbing on the counter and fell back into her and lost consciousness. After waking she felt back to her normal self. 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 She does have recent UTI and was placed on antibiotics on . She denies any fevers, chills, urinary frequency or dysuria however. 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 She denies any actual pain when she eats however. Troponins noted to be normal 3. Telemetry reveals normal sinus rhythm. No history of arrhythmias. 12/14 Last evening, patient states she had one very short episode of chest pain that went away on its own. She denies having any shortness of breath, no dizziness. No lower extremity edema. She is scheduled for Lexiscan stress test today 12/15 Yesterday, patient underwent Lexiscan stress test which did clear portion cannot rule out a small area of stress induced reversibility involving the anterior lateral myocardium. Discussed options with the patient this morning and she is agreeable to move forward with cardiac catheterization. She currently denies any chest pain or shortness of breath. Blood pressure 117/62, heart rate in the 50s to 70s. Echocardiogram reveals normal left ventricular size and systolic function, a ortic sclerosis without significant stenosis. Mild mitral and tricuspid regurgitation. PHYSICAL EXAMINATION Vital signs reviewed. CONSTITUTIONAL: No apparent distress. HEENT: Head is normocephalic. Pupils are equal, round. Sclerae anicteric. Mucous membranes of the mouth are moist. No JVD. No carotid bruit. CHEST EXAMINATION: Lungs are clear to auscultation. No chest wall tenderness is noted on palpation or with deep breathing. HEART EXAMINATION: Regular rate and rhythm. S1, S2 heard. No murmurs, gallops or rub. ABDOMEN: Soft, nontender. Positive bowel sounds. EXTREMITIES: 2+ peripheral pulses, no lower extremity edema and no calf tenderness. NEUROLOGIC EXAMINATION: Patient is awake, alert and oriented x3. ASSESSMENT 1. Syncope may be related to UTI and recent antibiotics however was not having significant angina-type symptoms when she originally had her bypass 2. History of syncope 2 other times in the shower 3. Hypertension 4. CAD status post CABG 5. PAD 6. 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 Symptoms not entirely consistent with chronic mesenteric ischemia however has had 30 pound weight loss 7. 30 pound unintentional weight loss PLAN Patient with acute onset of not feeling well, unsteadiness and syncope. Symptoms may be related to the recent urinary tract infection and antibiotics started on however did not have much angina symptoms around the time of her bypass. Patient will be scheduled for cardiac catheterization today with Dr. Jeffries. Further recommendations depending on results of cardiac catheterization. Nurse practitioner note has been reviewed, I agree with the documented findings and plan of care. Patient was seen and examined. Objective - Vital Signs Vital signs: Vital Signs Temp 97.6 F 12/15/22 02:52 Pulse 58 L 12/15/22 02:52 Resp 18 12/15/22 02:52 BP 100/50 12/15/22 02:52 Pulse Ox 99 12/15/22 02:52 FiO2 Intake & Output 12/14/22 12/15/22 12/15/22 18:59 06:59 18:59 Weight 65.771 kg Other: Voiding Method Toilet # Voids 1 2 - Labs CBC & Chem 7: 12/12/22 09:27 12/12/22 09:27 Labs: Abnormal Lab Results - Last 24 Hours (Table) 12/14/22 12/14/22 12/14/22 Range/Units 13:32 17:45 20:45 POC Glucose (mg/dL) 198 H 305 H 281 H (70-110) mg/dL Microbiology - Last 24 Hours (Table) 12/12/22 09:27 Urine Culture - Final Urine,Voided Strep agalactiae - (group b) Danae sp,not albicans/galbr
[2022-12-15 12:10] LABS: Glucose,Whole Blood 116 mg/dL (70-110)
--- NOTE | 2022-12-15 13:18 | P.PN ---
Subjective Progress Note Date: 12/15/22 This is a very pleasant 77-year-old female patient with a known history of coronary artery disease with previous coronary artery bypass grafting, peripheral vascular disease with previous stents, diabetes mellitus, hypertension, hypothyroidism who presented here to the emergency room yesterday after sustaining MEL recent syncopal episode at home witnessed by her . She denied any previous symptoms. She had gotten up from bed and gone to the bathroom and was ambulating in the kitchen when this occurred. 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 She follows with cardiology and recently had a carotid Doppler that was reported as within normal limits. Echocardiogram is pending. EKG revealed sinus rhythm without any significant ST or T wave abnormalities. CT angiogram ruled out pulmonary embolism. There is moderate coarse interstitial pulmonary infiltrates consistent with pulmonary fibrosis. She had not been told about fibrosis in the past. She has no dry cough. No hemoptysis. No dyspnea on exertion. No home oxygen. Had not been seen by pulmonary before. White count 9.0. Hemoglobin 12.4. Sodium 138. Potassium 3.7. Bicarb 26. BUN 20. Creatinine 1.14. Glucose 127. Troponins were negative. Urine positive for bacteria and high white blood cells. She had been initiated on Macrobid 2 days prior to her syncopal episode. Culture pending. She is seen today in consultation on the regular medical floor. Sitting up in bed. Awake and alert in no acute distress. Maintaining good O2 saturations in the 90s on room air. Hoping to go home. No further syncopal episodes. The patient is seen today 12/14/2022 in follow-up on the regular medical floor. She is currently sitting up in a chair at the bedside. Awake and alert in no acute distress. Maintaining good O2 saturations in the 90s on room air. No dry cough. No congestion. No further syncopal episodes. Urine culture positive for strep agalactiae group B and yeast species. The plan is for stress test and echocardiogram today per cardiology. The patient seemed 12/15/2022 in follow-up on the regular medical floor. She is awake and alert in no acute distress. Sitting up in a chair at the bedside. Denies any shortness of breath, cough or congestion. Maintaining O2 saturations in the 90s on room air. No IV fluids. No further syncopal episodes. She did undergo stress testing yesterday that revealed some small area of ischemia. She was initiated on a heparin drip. The plan is for cardiac catheterization. Objective - Vital Signs Vital signs: Vital Signs Temp 97.7 F 12/15/22 07:00 Pulse 66 12/15/22 07:00 Resp 18 12/15/22 07:00 BP 117/62 12/15/22 07:00 Pulse Ox 99 12/15/22 07:00 FiO2 Intake & Output 12/14/22 12/15/22 12/15/22 18:59 06:59 18:59 Weight 65.771 kg Other: Voiding Method Toilet # Voids 1 2 - Exam GENERAL EXAM: Alert, 77-year-old female, on room air, up in a chair, comfortable in no apparent distress. HEAD: Normocephalic. EYES: Normal reaction of pupils, equal size. NOSE: Clear with pink turbinates. THROAT: No erythema or exudates. NECK: No masses, no JVD. CHEST: No chest wall deformity. LUNGS: Equal air entry with faint crackles in the posterior bases, no wheeze, rhonchi or dullness. CVS: S1 and S2 normal with no audible murmur, regular rhythm. ABDOMEN: No hepatosplenomegaly, normal bowel sounds, no guarding or rigidity. SPINE: No scoliosis or deformity SKIN: No rashes CENTRAL NERVOUS SYSTEM: No focal deficits, tone is normal in all 4 extremities. EXTREMITIES: There is no peripheral edema. No clubbing, no cyanosis. Periphe ral pulses are intact. - Labs CBC & Chem 7: 12/12/22 09:27 12/12/22 09:27 Labs: Abnormal Lab Results - Last 24 Hours (Table) 12/14/22 12/14/22 12/14/22 Range/Units 13:32 17:45 20:45 POC Glucose (mg/dL) 198 H 305 H 281 H (70-110) mg/dL 12/15/22 Range/Units 12:08 POC Glucose (mg/dL) 116 H (70-110) mg/dL Microbiology - Last 24 Hours (Table) 12/12/22 09:27 Urine Culture - Final Urine,Voided Strep agalactiae - (group b) Danae sp,not albicans/galbr Assessment and Plan Assessment: Syncopal episode of unclear etiology possibly related to dehydration and weakness secondary to urinary tract infection. Stress test positive for small area of ischemia. Plan is for cardiac catheterization. Echocardiogram revealed normal systolic function. No significant aortic stenosis. Mild mitral regurgitation. Urinary tract infection initiated on Macrobid in the outpatient setting, culture pending Interstitial lung disease/pulmonary fibrosis noted on computed tomography scan, to be worked up in the outpatient setting Coronary artery disease with previous coronary artery bypass grafting in 2019 Peripheral vascular disease with previous stent placement Severe atherosclerotic changes of the abdominal aorta with high-grade stenosis likely greater than 90% involving the mid abdominal aorta. Greater than 75% bhavya nosis involving the SMA on computed tomography scan from 10/2022 Diabetes mellitus History of hypertension Hyperlipidemia Hypothyroidism Plan: The patient was seen and evaluated Labs and medication reviewed Plan is for cardiac catheterization this admission Suspect interstitial lung disease/pulmonary fibrosis Asymptomatic thus far, stable and on room air Follow-up in our office to undergo pulmonary function testing Home once cleared by cardiology/medicine I have personally seen and examined the patient, performed the documentation and the assessment and plan as written. Number of minutes spent on the visit: 10.
--- NOTE | 2022-12-15 16:21 | P.PN ---
Progress Note - Text Progress Note Date: 12/15/22 Chief Complaint: Short of breath This is a pleasant 77-year-old patient follows with Dr. Vaibhav Ac. Chronic stable medical conditions include CAD with stent, PAD with peripheral stents, diabetes, hypertension, hyperlipidemia, osteoarthritis,. Patient is accompanied by her in the ER. This morning when patient got up she was short of breath. Care with occasional noticed that she was unsteady in the feet. He has to how she was feeling she did state I cannot breathe. She went to the cupboard to get her medications. He got up to help her. Still feeling short of breath. Then she became limp and her arms. He then called 911. Patient was out for a short time. She became pale. Patient denies any fever and chills. Was doing fine previously. Denies any chest pain. Patient does get some lower extremity swelling in the evening. I ordered the computed tomography scan from the ER that did come back negative for PE. December 13: Admitted with shortness of breath. CT chest ruled out PE. Shows interstitial lung disease. Possible underlying COPD given long-time smoker. Started on steroids bronchodilators. Cardiac ischemia and arrhythmia in the differential. Patient's walk to the bathroom. No further shortness of breath. 4 nuclear stress test tomorrow. Seen by pulmonary, cardiology. Steroids discontinued. December 14: Comfortable in bed. Underwent a nuclear stress test. Should a small area of stress-induced reversibility. Including the anterolateral myocardium. Possibly cardiac catheterization tomorrow. No chest pain 12/15/2022: Resting in bed. No chest pain. Pending cardiac catheterization. Active Medications Acetaminophen (Acetaminophen Tab 325 Mg Tab) 650 mg PO Q6HR PRN PRN Reason: Mild Pain or Fever > 100.5 Albuterol Sulfate (Albuterol Nebulized 2.5 Mg/3 Ml) 2.5 mg INHALATION RT-TID [facility] Last Admin: 12/15/22 15:37 Dose: 2.5 mg Alprazolam (Alprazolam 0.25 Mg Tab) 0.25 mg PO Q6HR PRN PRN Reason: Mild Anxiety Alprazolam (Alprazolam 0.5 Mg Tab) 0.5 mg PO Q6HR PRN PRN Reason: Moderate Anxiety Aspirin (Aspirin 81 Mg) 81 mg PO DAILY [facility] Calcium Carbonate/Glycine (Calcium Carbonate 500 Mg Chewable) 1,000 mg PO Q4HR PRN PRN Reason: Dyspepsia Clopidogrel Bisulfate (Clopidogrel 75 Mg Tab) 75 mg PO DAILY [facility] Last Admin: 12/15/22 09:38 Dose: 75 mg Cyanocobalamin (Cyanocobalamin 500 Mcg Tab) 1,000 mcg PO DAILY [facility] Last Admin: 12/15/22 09:37 Dose: 1,000 mcg Dapagliflozin (Dapagliflozin Propanediol 10 Mg Tablet) 10 mg PO DAILY [facility] Last Admin: 12/15/22 09:38 Dose: 10 mg Dextrose/Water (Dextrose 50% Syringe 50 Ml) 25 ml IVP PER PROTOCOL PRN; Protocol PRN Reason: Hypoglycemia Dextrose/Water (Dextrose 50% Syringe 50 Ml) 50 ml IVP PER PROTOCOL PRN; Protocol PRN Reason: Hypoglycemia Ezetimibe (Ezetimibe 10 Mg Tab) 10 mg PO DAILY [facility] Last Admin: 12/15/22 09:38 Dose: 10 mg Famotidine (Famotidine 20 Mg Tab) 20 mg PO BID [facility] Last Admin: 12/15/22 09:38 Dose: 20 mg Heparin Sodium (Porcine) 10, (000 unit/ Sodium Chloride) 1,001 mls @ 999 mls/hr IRRIGATION ONCE PRN PRN Reason: INTRA-OP Stop: 12/15/22 23:00 Heparin Sodium (Porcine) 2,500 (unit/ Sodium Chloride) 250.5 mls @ 250 mls/hr IRRIGATION ONCE PRN PRN Reason: INTRA-OP Stop: 12/15/22 23:00 Insulin Aspart (Insulin Aspart (Novolog) 100 Unit/Ml Vial) 0 unit SQ ACHS [facility]; Protocol Last Admin: 12/15/22 12:33 Dose: Not Given Insulin Detemir (Insulin Detemir (Levemir) 100 Unit/Ml Syr) 10 unit SQ HS [facility] Last Admin: 12/14/22 20:48 Dose: 10 unit Ipratropium [place] (Ipratropium 0.5 Mg/2.5 Ml Nebu) 0.5 mg INHALATION RT-TID [facility] Last Admin: 12/15/22 15:37 Dose: 0.5 mg Lactulose (Lactulose 20 Gm/30 Ml Cup) 20 gm PO DAILY PRN PRN Reason: Constipation Levothyroxine Sodium (Levothyroxine 112 Mcg Tab) 112 mcg PO DAILY@0630 [facility] Last Admin: 12/15/22 06:13 Dose: 112 mcg Lorazepam (Lorazepam 0.5 Mg Tab) 0.5 mg PO Q6HR PRN PRN Reason: Anxiety Melatonin (Melatonin 3 Mg Tablet) 3 mg PO HS PRN PRN Reason: Insomnia Metoprolol Tartrate (Metoprolol Tartrate 50 Mg Tab) 100 mg PO BID [facility] Last Admin: 12/15/22 09:38 Dose: 100 mg Naloxone HCl (Naloxone 0.4 Mg/Ml 1 Ml Vial) 0.2 mg IV Q2M PRN PRN Reason: Opioid Reversal Nitroglycerin (Nitroglycerin Sl Tabs 0.4 Mg Tab) 0.4 mg SUBLINGUAL Q5M PRN PRN Reason: Chest Pain Liraglutide [Victoza 3-Luiz] 0.6 Mg/0.1 Ml Ml 1.8 mg SQ DAILY [facility] Last Admin: 12/15/22 09:38 Dose: Not Given Ondansetron HCl (Ondansetron 4 Mg/2 Ml Vial) 4 mg IVP Q8HR PRN PRN Reason: Nausea And Vomiting Pantoprazole Sodium (Pantoprazole 40 Mg Tablet) 40 mg PO DAILY@0730 [facility] Last Admin: 12/15/22 06:13 Dose: 40 mg Past medical history to include: CAD with stent, diabetes, hypertension, hyperlipidemia, osteoporosis, hypothyroid, PAD with stent Social history: Alcohol occasionally. Lives with her . Smoked for 40 years 2 packs a day stopped in 2003 Physical examination: VITAL SIGNS: 97.6, 65, 18, 160/60, 100% room air GENERAL: reclining in bed comfortable EYES: Pupils equal. Conjunctiva normal. HEENT: External appearance of nose and ears normal, oral cavity grossly normal. NECK: JVD not raised; masses not palpable. HEART: First and second heart sounds are normal; no edema. LUNGS: Respiratory rate normal; decreased breath sounds. ABDOMEN: Soft, nontender, liver spleen not palpable, no masses palpable. PSYCH: Alert and oriented x3; mood and affect normal. MUSCULOSKELETAL:No Clubbing/cyanosis;muscles-grossly intact. OA INVESTIGATIONS, reviewed in the clinical context: 2-D echocardiogram: EF 55-60%. Aortic sclerosis. Nuclear stress test: Small area of reversibility in the anterior lateral wall. White count 19 hemoglobin 12.4 platelets 171 sodium 138 potassium 3.7 BUN 20 creatinine 1.14 Troponin I less than 0.012, 0.012 UA: Leukoesterase positive, WBC 1-1 each 2, nitrite negative EKG tracing personally reviewed by me-normal sinus rhythm. Rate 88 Chest x-ray film personally reviewed by me-cardiomegaly. Interstitial prominence CT chest angiogram for PE: Coarse reticular interstitial infiltrate in both lungs. Few calcified gallstones. No PE. Assessment and plan: -Patient woke up feeling short of breath symptoms progressively got worse. Patient gently passed out. Not found to be orthostatic in the ER. No chest pressure. Troponin negative. CT chest ruled out PE. Does show interstitial prominence. Patient does smoke for many years. Silent cardiac ischemia/arrhythmia in the differential. Nuclear stress test showing a small area of reversibility. Pending cardiac catheterization. -Interstitial lung disease. No prior documentation. IV [id number]. Followed by pulmonary. -Acute COPD exacerbation in an ex-smoker: Better DuoNeb. IV [id number] -CAD with prior history of stent Aspirin. Plavix. Telemetry. Seen by cardiology. Stress test tomorrow -PAD with prior intervention Aspirin, Plavix, Zetia -Diabetes mellitus type 2, on oral hypoglycemic Jardiance, metformin, and Victoza, Prandin. Follow Accu-Cheks and sliding scale -Primary osteoarthritis Tylenol when necessary -Hypothyroid Synthroid -Essential hypertension Lisinopril, Lopressor -Full code Nothing by mouth. Discussed with patient. Pending cardiac catheterization.
[2022-12-15 16:58] LABS: Glucose,Whole Blood 290 mg/dL (70-110)
[2022-12-15 21:13] LABS: Glucose,Whole Blood 271 mg/dL (70-110)
[2022-12-15] MEDS: INSULIN DETEMIR (LEVEMIR) 100 UNIT/ML SYR SQ SCH (21:52)
[2022-12-16 05:48] LABS: Glucose,Whole Blood 127 mg/dL (70-110)
[2022-12-16] MEDS: INSULIN ASPART (NovoLOG) 100 UNIT/ML VIAL SQ SCH ×2 (05:57→13:07)
[2022-12-16] MEDS: LEVOTHYROXINE 112 MCG TAB PO SCH (06:11)
[2022-12-16] MEDS: PANTOPRAZOLE 40 MG TABLET PO SCH (06:11)
[2022-12-16] MEDS ORDERED: VERAPAMIL 2.5 MG/ML 2 ML AMP ONE (07:16)
[2022-12-16] MEDS ORDERED: HEPARIN SODIUM 1,000 UN/ML (10ML VL) ONE (07:16)
[2022-12-16] MEDS ORDERED: LIDOCAINE 1% INJ 10MG/ML (20 ML MDV) ONE (07:31)
[2022-12-16] MEDS ORDERED: SODIUM CHLORIDE 0.9% 1,000 ML IV ONE (07:32)
[2022-12-16] MEDS ORDERED: MIDAZOLAM 2 MG/2 ML VIAL IVP ONE (07:53)
[2022-12-16] MEDS ORDERED: LIDOCAINE 1% INJ 10MG/ML (30 ML VIAL-PF) SQ ONE (07:56)
[2022-12-16] MEDS: IPRATROPIUM 0.5 MG/2.5 ML NEBU INHALATION SCH ×2 (08:02→11:30)
[2022-12-16] MEDS: ALBUTEROL NEBULIZED 2.5 MG/3 ML INHALATION SCH ×2 (08:02→11:28)
[2022-12-16] MEDS ORDERED: IOPAMIDOL-370 125ML BTL INJ ONE (08:21)
[2022-12-16] MEDS ORDERED: RX INFO: IV CONTRAST WAS GIVEN 1 EACH MISC MISCELLANE PRN (08:34)
--- NOTE | 2022-12-16 08:39 | P.PCN ---
Date of Procedure: 12/16/22 Operative Findings: CARDIAC CATHETERIZATION PERFORMING PHYSICIAN: Berto Jeffries MD, RPVI PROCEDURE PERFORMED: 1. Selective right and left coronary angiogram 2. Left heart catheterization 3. HURT to LAD angiogram, SVG to OM angiogram, SVG to RCA angiogram 4. Selective right common femoral artery angiogram 5. Ultrasound-guided access of the right common femoral artery INDICATION: This is a 77-year-old female patient with coronary artery disease and status post coronary artery that is grafting with HURT to LAD and SVG to OM as well as SVG to RCA as well as lower extremities twice a day as well as diabetes and hypertension and dyslipidemia who presented to the hospital with syncope. She underwent myocardial perfusion imaging stress test and that revealed and anterolateral ischemia. In the light of that a heart catheterization was advised. COMPLICATION: None APPROACH: Right common femoral artery LEVEL OF SEDATION: Moderate with sedation in length of 30 minutes PROCEDURE DESCRIPTION: After obtaining an informed consent, the patient was brought to cardiac labor conciliator. Local anesthesia was performed using lidocaine subcutaneously. The right common femoral artery was cannulated using Seldinger technique, the guidewire passed easily, following that we advanced a 6 [place]alan sheath dilator assembly, the wire and dilator were removed and sheath was flushed. Selective right and left coronary angiogram using a 6-[place] JR4 and JL catheters. Following that we did left heart catheterization using 6-Guatem[place] pigtail catheter. The procedure was completed there was no complication. SELECTIVE CORONARY ANGIOGRAM: The right coronary artery: Large caliber vessel and dominant vessel. The RCA is subtotally occluded in the midportion. Left main: Is subtotally occluded as well The left circumflex: Is completely occluded in the proximal portion The left anterior descending artery: Is also subtotally occluded in the proximal portion CORONARY BYPASSES ANGIOGRAM: The HURT to LAD is patent The SVG to OM is patent The SVG to RCA is patent with distal anastomosis has a lesion appeared to be in the range of 60%. HEMODYNAMICS: The LVEDP was about 10 mmHg was no significant gradient across aortic valve CONCLUSION: 1. Severe triple-vessel coronary artery disease 2. Patent HURT to LAD 3. Patent SVG to LCx 4. Patent SVG to RCA with the distal anastomosis of the SVG has a lesion appears to be in the range of 60-70% POSTPROCEDURE MANAGEMENT: Consider medical treatment at this point. Consider FFR of the distal anastomosis of SVG to RCA the patient remains symptomatic
[2022-12-16] MEDS ORDERED: SODIUM CHLORIDE 0.9% 1,000 ML IV SCH (08:45)
[2022-12-16] MEDS ORDERED: ASPIRIN 81 MG PO SCH (09:00)
[2022-12-16] MEDS: FAMOTIDINE 20 MG TAB PO SCH (09:58)
[2022-12-16] MEDS: EZETIMIBE 10 MG TAB PO SCH (09:59)
[2022-12-16] MEDS: CYANOCOBALAMIN 500 MCG TAB PO SCH (09:59)
[2022-12-16] MEDS: CLOPIDOGREL 75 MG TAB PO SCH (09:59)
[2022-12-16] MEDS: METOPROLOL TARTRATE 50 MG TAB PO SCH (09:59)
[2022-12-16] MEDS: DAPAGLIFLOZIN PROPANEDIOL 10 MG TABLET PO SCH (09:59)
[2022-12-16] MEDS: Liraglutide [Victoza 3-Pak] 0.6 MG/0.1 ML Ml SQ SCH (10:00)
[2022-12-16] MEDS ORDERED: ISOSORBIDE MONONITRATE ER 15 MG TAB PO SCH (11:30)
[2022-12-16 11:49] LABS: Glucose,Whole Blood 272 mg/dL (70-110)
[2022-12-16 14:29] VITALS: BP 112/58; PULSE 60; RESP 18; TEMP 97.8
--- NOTE | 2022-12-16 20:33 | P.DS ---
Providers Date of admission: 12/15/22 10:39 Expected date of discharge: 12/16/22 Attending physician: Daryl Briceno Consults: 12/12/22 11:23 Consult Physician Urgent Consulting Provider: Berto Jeffries Consult Reason/Comments: Syncope Do you want consulting provider notified?: Yes 12/12/22 16:23 Consult Physician Routine Consulting Provider: Twyla Eaton Consult Reason/Comments: Short of breath Do you want consulting provider notified?: Yes Primary care physician: Vaibhav Ac MD Hospital Course: Chief Complaint: Short of breath This is a pleasant 77-year-old patient follows with Dr. Vaibhav Ac. Chronic stable medical conditions include CAD with stent, PAD with peripheral stents, diabetes, hypertension, hyperlipidemia, osteoarthritis,. Patient is accompanied by her in the ER. This morning when patient got up she was short of breath. Care with occasional noticed that she was unsteady in the feet. He has to how she was feeling she did state I cannot breathe. She went to the cupboard to get her medications. He got up to help her. Still feeling short of breath. Then she became limp and her arms. He then called 911. Patient was out for a short time. She became pale. Patient denies any fever and chills. Was doing fine previously. Denies any chest pain. Patient does get some lower extremity swelling in the evening. I ordered the computed tomography scan from the ER that did come back negative for PE. December 13: Admitted with shortness of breath. CT chest ruled out PE. Shows interstitial lung disease. Possible underlying COPD given long-time smoker. Started on steroids bronchodilators. Cardiac ischemia and arrhythmia in the differential. Patient's walk to the bathroom. No further shortness of breath. 4 nuclear stress test tomorrow. Seen by pulmonary, cardiology. Steroids discontinued. December 14: Comfortable in bed. Underwent a nuclear stress test. Should a small area of stress-induced reversibility. Including the anterolateral myocardium. Possibly cardiac catheterization tomorrow. No chest pain 12/15/2022: Resting in bed. No chest pain. Pending cardiac catheterization. 12/16/2022: Underwent cardiac catheterization by Dr. Arreguin this morning. Bypass grafts felt to be patent. There is a 60%-70% lesion in the SVG to RCA. Imdur 15 mg and added. Patient cleared by cardiology to discharge. He'll follow up outpatient. Discussed with patient. Discussion and discharge planning more than 35 minutes Past medical history to include: CAD with stent, diabetes, hypertension, hyperlipidemia, osteoporosis, hypothyroid, PAD with stent Social history: Alcohol occasionally. Lives with her . Smoked for 40 years 2 packs a day stopped in 2003 Physical examination: VITAL SIGNS: 97.8, 60, 18, 112/58, 92% room air GENERAL: comfortable EYES: Pupils equal. Conjunctiva normal. HEENT: External appearance of nose and ears normal, oral cavity grossly normal. NECK: JVD not raised; masses not palpable. HEART: First and second heart sounds are normal; no edema. LUNGS: Respiratory rate normal; decreased breath sounds. ABDOMEN: Soft, nontender, liver spleen not palpable, no masses palpable. PSYCH: Alert and oriented x3; mood and affect normal. MUSCULOSKELETAL:No Clubbing/cyanosis;muscles-grossly intact. OA INVESTIGATIONS, reviewed in the clinical context: Cardiac catheterization: See 's Snort for results 2-D echocardiogram: EF 55-60%. Aortic sclerosis. Nuclear stress test: Small area of reversibility in the anterior lateral wall. White count 19 hemoglobin 12.4 platelets 171 sodium 138 potassium 3.7 BUN 20 creatinine 1.14 Troponin I less than 0.012, 0.012 UA: Leukoesterase positive, WBC 1-1 each 2, nitrite negative EKG tracing personally reviewed by me-normal sinus rhythm. Rate 88 Chest x-ray film personally reviewed by me-cardiomegaly. Interstitial prominence CT chest angiogram for PE: Coarse reticular interstitial infiltrate in both lungs. Few calcified gallstones. No PE. Assessment and plan: -Unstable angina with shortness of breath as cardiac manifestation 60%-70% lesion in the SVG to RCA. -Interstitial lung disease. No prior documentation. IV [id number]. Follow Dr. Swanson that outpatient -Acute COPD exacerbation in an ex-smoker: Better Albuterol when necessary -CAD with prior history of stent Aspirin. Plavix. -PAD with prior intervention Aspirin, Plavix, Zetia -Diabetes mellitus type 2, on oral hypoglycemic Jardiance, metformin, and Victoza, Prandin. Follow Accu-Cheks and sliding scale -Primary osteoarthritis Tylenol when necessary -Hypothyroid Synthroid -Essential hypertension Lisinopril, Lopressor -Full code Disposition: Home Plan - Discharge Summary Discharge Rx Participant: Yes New Discharge Prescriptions: New Aspirin 81 mg PO DAILY tab Nitroglycerin Sl Tabs [Nitrostat] 0.4 mg SUBLINGUAL Q5M PRN #30 tab PRN Reason: Chest Pain Isosorbide Mononitrate ER [Imdur] 15 mg PO DAILY #15 tab Continue Ezetimibe [Zetia] 10 mg PO DAILY Ergocalciferol [Vitamin D2 (DRISDOL)] 50,000 units PO Q14D Clopidogrel [Plavix] 75 mg PO DAILY #30 tab Metoprolol Tartrate [Lopressor] 100 mg PO BID Levothyroxine Sodium [Synthroid] 112 mcg PO DAILY Empagliflozin [Jardiance] 25 mg PO DAILY metFORMIN HCL [metFORMIN HCL ER] 500 mg PO BID lisinopriL [Zestril] 10 mg PO DAILY Famotidine [Pepcid] 20 mg PO BID Repaglinide [Prandin] 1 mg PO BID Potassium Chloride [Klor-Con 8] 8 meq PO DAILY Liraglutide [Victoza 3-Luiz] 1.8 mg SQ DAILY Cyanocobalamin (Vitamin B-12) [Vitamin B-12] 1,000 mcg PO DAILY Pantoprazole [Protonix] 40 mg PO DAILY Nystatin/Triamcin [Nystatin-Triamcinolone Cream] 1 applic TOPICAL DAILY PRN PRN Reason: Skin Irritation Discontinued Aspirin 81 mg PO DAILY Nitrofurantoin Monohyd/M-Cryst [Macrobid] 100 mg PO BID Discharge Medication List Ergocalciferol [Vitamin D2 (DRISDOL)] 50,000 units PO Q14D 01/31/14 [History] Ezetimibe [Zetia] 10 mg PO DAILY 01/31/14 [History] Clopidogrel [Plavix] 75 mg PO DAILY #30 tab 12/06/18 [Rx] Empagliflozin [Jardiance] 25 mg PO DAILY 11/13/19 [History] Levothyroxine Sodium [Synthroid] 112 mcg PO DAILY 11/13/19 [History] Metoprolol Tartrate [Lopressor] 100 mg PO BID 11/13/19 [History] metFORMIN HCL [metFORMIN HCL ER] 500 mg PO BID 11/13/19 [History] lisinopriL [Zestril] 10 mg PO DAILY 03/18/20 [History] Cyanocobalamin (Vitamin B-12) [Vitamin B-12] 1,000 mcg PO DAILY 12/12/22 [History] Famotidine [Pepcid] 20 mg PO BID 12/12/22 [History] Liraglutide [Victoza 3-Luiz] 1.8 mg SQ DAILY 12/12/22 [History] Nystatin/Triamcin [Nystatin-Triamcinolone Cream] 1 applic TOPICAL DAILY PRN 12/12/22 [History] Pantoprazole [Protonix] 40 mg PO DAILY 12/12/22 [History] Potassium Chloride [Klor-Con 8] 8 meq PO DAILY 12/12/22 [History] Repaglinide [Prandin] 1 mg PO BID 12/12/22 [History] Aspirin 81 mg PO DAILY tab 12/16/22 [Rx] Isosorbide Mononitrate ER [Imdur] 15 mg PO DAILY #15 tab 12/16/22 [Rx] Nitroglycerin Sl Tabs [Nitrostat] 0.4 mg SUBLINGUAL Q5M PRN #30 tab 12/16/22 [Rx] Follow up Appointment(s)/Referral(s): Twyla Eaton MD [STAFF PHYSICIAN] - 1 Week Vaibhav Ac MD [Primary Care Provider] - 1-2 days Berto Jeffries MD [STAFF PHYSICIAN] - 12/23/22 3:30 pm Patient Instructions/Handouts: *Surgery [facility] - After Heart Catheterization - Animal Behaviourist Instructions, Heart Catheterization (DC) Activity/Diet/Wound Care/Special Instructions: dc if ok with dr jeffries Discharge Disposition: HOME SELF-CARE
== END 2022-12-16 16:20 | disposition home or self-care (01) | DRG 287 ==
LOC: EC 09:13 → 6NMEDSUR 11:27 → OBSVTOIN 12-15 10:39
PROVIDERS: ADMIT Hospitalist; ATTEND Hospitalist
PROC: B2111ZZ Fluoroscopy of Multiple Coronary Arteries using Low Osmolar Contrast (ICD-10-PCS; principal; 2022-12-16 07:30)
PROC: B2181ZZ Fluoroscopy of Left Internal Mammary Bypass Graft using Low Osmolar Contrast (ICD-10-PCS; principal; 2022-12-16 07:30)
PROC: 4A023N7 Measurement of Cardiac Sampling and Pressure, Left Heart, Percutaneous Approach (ICD-10-PCS; principal; 2022-12-16 07:30)
PROC: B2131ZZ Fluoroscopy of Multiple Coronary Artery Bypass Grafts using Low Osmolar Contrast (ICD-10-PCS; principal; 2022-12-16 07:30)
DX: I25.110 Atherosclerotic heart disease of native coronary artery with unstable angina pectoris (principal); N39.0 Urinary tract infection, site not specified; N17.9 Acute kidney failure, unspecified; K55.1 Chronic vascular disorders of intestine; J44.1 Chronic obstructive pulmonary disease with (acute) exacerbation; J84.9 Interstitial pulmonary disease, unspecified; I10 Essential (primary) hypertension; E78.5 Hyperlipidemia, unspecified; M81.0 Age-related osteoporosis without current pathological fracture; E03.9 Hypothyroidism, unspecified; E86.0 Dehydration; E11.51 Type 2 diabetes mellitus with diabetic peripheral angiopathy without gangrene; M19.91 Primary osteoarthritis, unspecified site; I35.0 Nonrheumatic aortic (valve) stenosis; J84.10 Pulmonary fibrosis, unspecified; I70.0 Atherosclerosis of aorta; Z71.3 Dietary counseling and surveillance; I25.2 Old myocardial infarction; Z88.5 Allergy status to narcotic agent; Z95.820 Peripheral vascular angioplasty status with implants and grafts; Z95.5 Presence of coronary angioplasty implant and graft; Z87.891 Personal history of nicotine dependence; Z95.1 Presence of aortocoronary bypass graft; Z79.899 Other long term (current) drug therapy; Z79.84 Long term (current) use of oral hypoglycemic drugs; Z79.82 Long term (current) use of aspirin; Z79.890 Hormone replacement therapy; Z79.02 Long term (current) use of antithrombotics/antiplatelets
CPT/HCPCS: 36415; 71046; 71275; 78452; 80053; 81001; 83735; 84484; 85025; 85610; 85730; 87086; 93005; 93017; 93306; 93459; 94640; 96360; 96361; 99285

== ENCOUNTER 2023-01-05 06:48 | Day surgery (SDC) | payer MEDICARE ==
[2023-01-01 09:24] VITALS: BMI 26.5
[~2023-01-05 06:48] MED LIST changes: -ALPRAZolam 0.25 MG TAB PO PRN; -ALPRAZolam 0.5 MG TAB PO PRN; -ASPIRIN 325 MG TAB PO ONE; -INSULIN ASPART (NovoLOG) 100 UNIT/ML VIAL SQ SCH; -IOPAMIDOL-370 125ML BTL INJ ONE; +LACTATED RINGERS 1,000 ML IV SCH; +LIDOCAINE 1% (10MG/ML) FOR IV START INTRADERMA PRN; -LIDOCAINE 1% INJ 10MG/ML (20 ML MDV) ONE; -LIDOCAINE 1% INJ 10MG/ML (20 ML MDV) SQ ONE; -MIDAZOLAM 2 MG/2 ML VIAL IVP ONE; -NITROGLYCERIN SL TABS 0.4 MG TAB SUBLINGUAL PRN; -RX INFO: IV CONTRAST WAS GIVEN 1 EACH MISC MISCELLANE PRN; -SODIUM CHLORIDE 0.9% 1,000 ML IV SCH; -SODIUM CHLORIDE 0.9% 1,000 ML in EMPTY BAG 1 BAG IV ONE
[2023-01-05 07:25] VITALS: RESP 16; TEMP 96.9
[2023-01-05 07:36] LABS: Glucose,Whole Blood 145 mg/dL (70-110)
[2023-01-05] MEDS ORDERED: PROPOFOL 10 MG/ML 20 ML VIAL IV ONE (08:05)
[2023-01-05] MEDS ORDERED: LIDOCAINE 2% INJ 20 MG/ML (2 ML VIAL) ONE (08:05)
--- NOTE | 2023-01-05 08:23 | P.PCN ---
Date of Procedure: 01/05/23 Procedure(s) Performed: BRIEF HISTORY: Patient is a 77-year-old pleasant white female scheduled for an elective colonoscopy as a part of lower abdominal pain and change in bowel habits. PROCEDURE PERFORMED: Colonoscopy. PREOPERATIVE DIAGNOSIS: Lower abdominal pain and change in bowel habits. IV sedation per Anesthesia. PROCEDURE: After informed consent was obtained, the patient, was brought into the endoscopy unit. IV sedation was administered by Anesthesia under continuous monitoring. Digital rectal examination was normal. Initially the Olympus CF-160 flexible video colonoscope was then inserted in the rectum, gradually advanced into the cecum without any difficulty. Careful examination was performed as the scope was gradually being withdrawn. Ileocecal valve and the appendiceal orifice were visualized and appeared normal. Prep was excellent. Mucosa of the cecum, ascending colon, transverse colon, descending colon, sigmoid colon, and rectum appeared normal. Scattered sigmoid diverticulosis. Retroflexion was performed in the rectum and no lesions were seen. The patient tolerated the procedure well. IMPRESSION: Normal-appearing colon from rectum to cecum with no evidence of colorectal neoplasia . Scattered sigmoid diverticulosis. RECOMMENDATIONS: Findings of this examination were discussed with the patient as well as a family. She was advised to be a high-fiber diet and take fiber supplements a regular basis..
[2023-01-05 08:54] VITALS: BP 122/58; PULSE 56
== END 2023-01-05 09:33 | disposition home or self-care (01) ==
LOC: ORWHC2ENDO 06:48
PROVIDERS: ATTEND Internal Medicine Gastroenterology
DX: K57.30 Diverticulosis of large intestine without perforation or abscess without bleeding (principal); I10 Essential (primary) hypertension; E78.5 Hyperlipidemia, unspecified; I25.10 Atherosclerotic heart disease of native coronary artery without angina pectoris; I25.2 Old myocardial infarction; Z87.891 Personal history of nicotine dependence; E11.9 Type 2 diabetes mellitus without complications; E07.9 Disorder of thyroid, unspecified; K21.9 Gastro-esophageal reflux disease without esophagitis; Z79.84 Long term (current) use of oral hypoglycemic drugs; Z79.890 Hormone replacement therapy; Z79.82 Long term (current) use of aspirin; Z79.899 Other long term (current) drug therapy; Z88.5 Allergy status to narcotic agent
CPT/HCPCS: 45378; J2704; J2001

== ENCOUNTER → 2023-02-11 | Outpatient (CLI) | payer MEDICARE ==
--- NOTE | 2023-02-11 20:55 | FL ---
EXAMINATION TYPE: FL UGI w small bowel DATE OF EXAM: 02/11/2023 COMPARISON: None HISTORY: Rapid unintentional weight loss lower abdominal pain TECHNIQUE: Upper gastrointestinal tract evaluated utilizing double air contrast technique. FINDINGS: Fluoroscopy time: 1 minute 51 seconds. Esophagus dilates to normal caliber and has normal contour to the gastroesophageal junction. Gastroe sophageal junction opens to normal caliber. No intraluminal or extrarenal defects are evident. There are tertiary contractions within the distal half of the esophagus. Secondary contractions evident. Th ere is incomplete stripping of the esophageal bolus. A very small hiatal hernia may be present. Fundus body and antrum of the stomach are normal no intraluminal or extramural defects evident. Bariu m readily empties into a normally positioned duodenal cap and sweep. There is a large duodenal divert iculum within the second portion of the duodenum. Small bowel follow-through: Following additional oral administration of contrast radiographs are obta ined. Transit time to the colon is 2 hours. Ileal jejunal fold pattern appears normal. No mass effect is evident. No intraluminal abnormality is identified. Spot imaging over the terminal ileum appear u nremarkable. No fixed loops of bowel are evident on real-time observation. IMPRESSION: 1. Presbyesophagus. 2. Small hiatal hernia. 3. Duodenal diverticulum. 4. Transit time to the colon is approximately 2 hours. Small bowel follow-through appears unremarkabl e.
== END | disposition home or self-care (01) ==
LOC: RADFLMAIN 07:46
PROVIDERS: ATTEND Internal Medicine Gastroenterology
DX: K44.9 Diaphragmatic hernia without obstruction or gangrene (principal); K57.10 Diverticulosis of small intestine without perforation or abscess without bleeding; K22.89 Other specified disease of esophagus; R63.4 Abnormal weight loss
CPT/HCPCS: 74240; 74248

== ENCOUNTER 2023-03-05 05:48 | Day surgery (SDC) | payer MEDICARE ==
[2023-03-05] MEDS ORDERED: HEPARIN SODIUM,PORCINE 10,000 UNIT in SODIUM CHLORIDE 0.9% 1,000 ML IRRIGATION PRN (05:55)
[2023-03-05] MEDS ORDERED: ZOLPIDEM 5 MG TAB PO PRN (05:55)
[2023-03-05] MEDS ORDERED: ASPIRIN 325 MG TAB PO PRN (05:55)
[2023-03-05] MEDS ORDERED: SODIUM CHLORIDE 0.9% 1,000 ML in EMPTY BAG 1 BAG IV ONE (05:55)
[2023-03-05] MEDS ORDERED: HEPARIN SODIUM,PORCINE 2,500 UNIT in SODIUM CHLORIDE 0.9% 250 ML IRRIGATION PRN (05:55)
[2023-03-05] MEDS ORDERED: ALPRAZolam 0.25 MG TAB PO PRN (05:55)
[2023-03-05] MEDS ORDERED: ALPRAZolam 0.5 MG TAB PO PRN (05:55)
[2023-03-05] MEDS ORDERED: CLOPIDOGREL 75 MG TAB ONE (06:10)
[2023-03-05 06:28] VITALS: TEMP 97.7
[2023-03-05 06:32] LABS: Glucose,Whole Blood 144 mg/dL (70-110)
[2023-03-05] MEDS ORDERED: VERAPAMIL 2.5 MG/ML 2 ML AMP ONE (07:15)
[2023-03-05] MEDS ORDERED: LIDOCAINE 1% INJ 10MG/ML (5 ML VIAL-PF) SQ ONE (07:42)
[2023-03-05] MEDS ORDERED: MIDAZOLAM 2 MG/2 ML VIAL IV ONE (07:42)
[2023-03-05] MEDS ORDERED: VERAPAMIL SYRINGE (5 MG/10 ML) INTRAARTER ONE (07:44)
[2023-03-05] MEDS ORDERED: IOPAMIDOL-370 100ML BTL INJ ONE (08:00)
[2023-03-05] MEDS ORDERED: NALOXONE 0.4 MG/ML 1 ML VIAL IVP PRN (08:01)
--- NOTE | 2023-03-05 08:06 | P.PCN ---
Date of Procedure: 03/05/23 Operative Findings: AN ABDOMINAL AORTOGRAM AND BILATERAL LOWER EXTREMITIES RUNOFF PERFORMING PHYSICIAN: Berto Jeffries MD PROCEDURE PERFORMED: 1. An abdominal aortogram 2. Bilateral lower extremities runoff 3. Ultrasound-guided access of the right radial artery INDICATION: Right lower extremities intermittent claudication in this 77-year-old female patient one underwent a Doppler showed occluded right SFA/popliteal COMPLICATION: None LEVEL OF SEDATION: Moderate was sedation length of 18 minutes APPROACH: Right radial artery PROCEDURE DESCRIPTION: After obtaining informed consent and explaining the procedure benefits, risks, and complications, the patient was brought to the cardiac blood bank laboratory professional. The right radial artery was prepped and draped in sterile fashion. The right common femoral artery was cannulated using micropuncture technique, under ultrasound guidance. A micropuncture wire was advanced, and the micropuncture sheath was advanced over the wire, then the micropuncture sheath was exchanged over an 0.35 wire into a 5-Chilean sheath dilator assembly then the wire and dilator were removed and sheath was flushed. We did an abdominal aortogram and bilateral lower extremities runoff using 5- Chilean pigtail catheter using a power injection. The catheter was initially placed at the level of the renal arteries, and it was pulled into above the bifurcation of the aorta into right and left common iliac arteries. The procedure was completed and there was no complications. SELECTIVE PERIPHERAL ANGIOGRAM: The abdominal aorta: Is calcified was mild to moderate diffuse disease The common iliac arteries: The right and left common iliac arteries are stented and the stent are patent The external iliac arteries: The right and left external iliac arteries appears to have mild disease only The internal iliac arteries: Both internal iliac arteries are patent The common femoral arteries: Both common femoral arteries are patent Superficial femoral arteries: The right SFA is occluded. The left SFA appears to have [id number] disease Popliteal arteries: The right popliteal is occluded. 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
[2023-03-05] MEDS ORDERED: SODIUM CHLORIDE 0.9% 1,000 ML in EMPTY BAG 1 BAG IV SCH (08:15)
[2023-03-05 09:30] VITALS: PULSE 68
[2023-03-05 09:33] VITALS: RESP 16
--- NOTE | 2023-03-05 10:13 | IR ---
EXAMINATION TYPE: IR angio abdominal w runoff DATE OF EXAM: 03/05/2023 FLUOROSCOPY Fluoroscopy time of 5 minutes was used during intravascular arterial injection with intervention for right leg pain. A series of 5 cine images document/s the procedure. Total DAP: 6.91 Gycm2
[2023-03-05 10:57] VITALS: BP 159/63
== END 2023-03-05 12:30 | disposition home or self-care (01) ==
LOC: CATHCVL 05:48
PROVIDERS: ATTEND Internal Medicine Interventional Cardiology
DX: I70.211 Atherosclerosis of native arteries of extremities with intermittent claudication, right leg (principal); I70.0 Atherosclerosis of aorta; Z98.62 Peripheral vascular angioplasty status; E11.51 Type 2 diabetes mellitus with diabetic peripheral angiopathy without gangrene; I25.10 Atherosclerotic heart disease of native coronary artery without angina pectoris; Z95.1 Presence of aortocoronary bypass graft; E78.5 Hyperlipidemia, unspecified; I11.9 Hypertensive heart disease without heart failure; I25.2 Old myocardial infarction; F17.210 Nicotine dependence, cigarettes, uncomplicated; Z79.02 Long term (current) use of antithrombotics/antiplatelets; Z79.84 Long term (current) use of oral hypoglycemic drugs; Z79.85 Long-term (current) use of injectable non-insulin antidiabetic drugs; Z79.82 Long term (current) use of aspirin; Z79.899 Other long term (current) drug therapy; Z88.8 Allergy status to other drugs, medicaments and biological substances
CPT/HCPCS: 36200; 75625; 75716; 76937; 99152; C1769 ×3; C1894; J2250; J2001; Q9967

== ENCOUNTER 2023-03-20 20:12 | Emergency (ER) | payer MEDICARE ==
--- NOTE | 2023-03-20 22:37 | XR ---
EXAMINATION TYPE: XR wrist complete RT DATE OF EXAM: 03/20/2023 COMPARISON: None HISTORY: Pain TECHNIQUE: 4 view right wrist FINDINGS: Diffuse soft tissue swelling is present. No acute fractures evident. Vascular calcification is noted. Some mild degenerative change of the first carpometacarpal junction is present. Joint spac es are otherwise preserved. If there is pain at the anatomic snuff box, nuclear medicine bone scan would be recommended for addit ional evaluation. Follow up exams can be performed 7-10 days from acute trauma for continued pain. IMPRESSION: 1. No acute osseous abnormality. Follow-up can be performed as clinically indicated. 2. Prominent diffuse soft tissue swelling
--- NOTE | 2023-03-20 23:03 | ED ---
Extremity Problem HPI - General Chief complaint: Extremity Problem,Nontraumatic Stated complaint: Right Hand Pain Time Seen by Provider: 03/20/23 21:32 Source: patient Mode of arrival: ambulatory Limitations: no limitations - History of Present Illness Initial comments: This 77-year-old female presenting with chief complaint of right wrist pain. P ain started this afternoon. Patient denies any injury or trauma. She admits to swelling. No numbness or tingling. She admits to pain with range of motion particularly with extension of the chest. Patient to have an angiogram [address] Jeffries through the right wrist. No fever, chills, redness, nausea, vomiting, chest pain, difficulty breathing., - Related Data Home Medications Medication Instructions Recorded Confirmed Ergocalciferol [Vitamin D2 50,000 units PO Q14D 01/31/14 03/05/23 (DRISDOL)] Ezetimibe [Zetia] 10 mg PO DAILY 01/31/14 03/05/23 Empagliflozin [Jardiance] 25 mg PO DAILY 11/13/19 03/05/23 Levothyroxine Sodium [Synthroid] 112 mcg PO QAM 11/13/19 03/05/23 Metoprolol Tartrate [Lopressor] 100 mg PO BID 11/13/19 03/05/23 lisinopriL [Zestril] 5 mg PO QAM 12/13/19 03/05/23 Cyanocobalamin (Vitamin B-12) 1,000 mcg PO DAILY 12/12/22 03/05/23 [Vitamin B-12] Famotidine [Pepcid] 20 mg PO HS 12/12/22 03/05/23 Liraglutide [Victoza 3-Luiz] 1.8 mg SQ QAM 12/12/22 03/05/23 Potassium Chloride [Klor-Con 8] 8 meq PO DAILY 12/12/22 03/05/23 Repaglinide [Prandin] 1 mg PO AC-BID 12/12/22 03/05/23 Pantoprazole Sodium 40 mg PO DAILY 01/01/23 03/05/23 Previous Rx's Medication Instructions Recorded Clopidogrel [Plavix] 75 mg PO DAILY #30 tab 12/06/18 Aspirin 81 mg PO DAILY tab 12/16/22 Allergies Allergy/AdvReac Type Severity Reaction Status Date / Time hydromorphone HCl AdvReac RESPIRATORY Verified 03/02/23 12:49 [From Dilaudid] DEPRESSION Review of Systems ROS Statement: Those systems with pertinent positive or pertinent negative responses have been documented in the HPI. ROS Other: All systems not noted in ROS Statement are negative. Past Medical History Past Medical History: Coronary Artery Disease (CAD), Chest Pain / Angina, Diabetes Mellitus, Eye Disorder, GERD/Reflux, Hearing Disorder / Deafness, Hyperlipidemia, Hypertension, Myocardial Infarction (VA), Myocardial Infarction (non Q-wave), Osteoarthritis (OA), Thyroid Disorder, Vascular Disorder Additional Past Medical History / Comment(s): Peripheral Arterial Disease. Glaucoma, has left eye stent. Bilateral hearing aids. slightly sob at times follows with pulminologist Last Myocardial Infarction Date:: 2001 History of Any Multi-Drug Resistant Organisms: None Reported Past Surgical History: Adenoidectomy, Coronary Bypass/CABG, Heart Catheterization, Heart Catheterization With Stent, Tonsillectomy, Tubal Ligation Additional Past Surgical History / Comment(s): Triple bypass in 2019 EXP. LAP 02/2012, STENT TO HEART X1, INFRA RENAL AORTIC STENT, STENTS TO BILATERAL LEGS, AORTOGRAM WITH RUNOFF, bilateral cataracts removed, stent to left eye. Past Anesthesia/Blood Transfusion Reactions: No Reported Reaction Additional Past Anesthesia/Blood Transfusion Reaction / Comment(s): Has never had a blood transfusion. Date of Last Stent Placement:: 2001 Past Psychological History: No Psychological Hx Reported Smoking Status: Former smoker - Past Family History Mother Family Medical History: Dementia Additional Family Medical History / Comment(s): HEART PROBLEMS. Father Family Medical History: Coronary Artery Disease (CAD), Myocardial Infarction (VA) Additional Family Medical History / Comment(s): Her father at age 79 with a myocardial infarction. General Exam Limitations: no limitations General appearance: alert, in no apparent distress Head exam: Present: atraumatic, normocephalic, normal inspection Eye exam: Present: normal appearance, EOMI. Absent: scleral icterus, periorbital swelling Neck exam: Present: normal inspection, full ROM Respiratory exam: Present: normal lung sounds bilaterally. Absent: respiratory distress, wheezes, rales, rhonchi, stridor Cardiovascular Exam: Present: regular rate, normal rhythm, normal heart sounds. Absent: systolic murmur, diastolic murmur, rubs, gallop, clicks Right Hand Wrist exam: Present: tenderness, swelling, other (Normal capillary refill. Radial pulse is 1+). Absent: full ROM Neurological exam: Present: alert, oriented X3, CN II-XII intact Psychiatric exam: Present: normal affect, normal mood Skin exam: Present: warm, dry, intact, normal color. Absent: rash Course Vital Signs 03/20/23 03/20/23 03/20/23 20:38 21:02 22:03 Temperature 97.8 F 97.9 F 97.8 F Pulse Rate 75 72 68 Respiratory 18 17 18 Rate Blood Pressure 173/70 154/65 154/65 O2 Sat by Pulse 98 97 97 Oximetry 03/20/23 23:09 Temperature 97.7 F Pulse Rate 70 Respiratory 17 Rate Blood Pressure 181/71 O2 Sat by Pulse 99 Oximetry Medical Decision Making - Medical Decision Making Was pt. sent in by a medical professional or institution (, [place], [facility], urgent care, hospital, or intermediate...) When possible be specific @ -No Did you speak to anyone other than the patient for history (EMS, parent, family, police, friend...)? What history was obtained from this source @ -No Did you review nursing and triage notes (agree or disagree)? Why? @ -I reviewed and agree with nursing and triage notes Were old charts reviewed (outside hosp., previous admission, EMS record, old EKG, old radiological studies, urgent care reports/EKG's, intermediate records)? Report findings @ -No old charts were reviewed Differential Diagnosis (chest pain, altered mental status, abdominal pain women, abdominal pain men, vaginal bleeding, weakness, fever, dyspnea, syncope, headache, dizziness, GI bleed, back pain, seizure, CVA, palpatations, mental health, musculoskeletal)? @ -Differential Musculoskeletal Muscular strain, contusion, ligament sprain, fracture, arthritis, septic arthritis, bursitis, cellulitis, muscle spasm, nerve compression, DVT, arterial occlusion, herpes zoster, electrolyte abnormality, tumor.... This is not meant to be in all inclusive list EKG interpreted by me (3pts min.). @ -As above X-rays interpreted by me (1pt min.). @ -X-ray shows no acute osseous process CT interpreted by me (1pt min.). @ -None done U/S interpreted by me (1pt. min.). @ -None done What testing was considered but not performed or refused? (CT, X-rays, U/S, labs)? Why? @ -None What meds were considered but not given or refused? Why? @ -None Did you discuss the management of the patient with other professionals (professionals i.e. Dr., PA, [facility], lab, RT, psych nurse, director social, seam rubber, teacher, commissioned security officer, case management director)? Give summary @ -My attending Dr. Banda spoke with Dr. Ty, who recommended xray and follow up with Dr. Jeffries in the office this week, no further testing recommended. Was smoking cessation discussed for >3mins.? @ -No Was critical care preformed (if so, how long)? @ -No Were there social determinants of health that impacted care today? How? (Homelessness, low income, unemployed, alcoholism, drug addiction, transportation, low edu. Level, literacy, decrease access to med. care, care home, rehab)? @ -No Was there de-escalation of care discussed even if they declined (Discuss DNR or withdrawal of care, Hospice)? DNR status @ -No What co-morbidities impacted this encounter? (DM, HTN, Smoking, COPD, CAD, Cancer, CVA, ARF, Chemo, Hep., AIDS, mental health diagnosis, sleep apnea, morbid obesity)? @ -None Was patient admitted / discharged? Hospital course, mention meds given and route, prescriptions, significant lab abnormalities, going to OR and other pertinent info. @ -69-year-old female presenting with chief complaint of right wrist pain and swelling that started this afternoon. No injury or trauma. Patient had angiogram performed 2 weeks ago through the right wrist. On physical examination normal capillary refill and normal waveform with pulse ox on all 5 fingers. 1+ radial pulse. The hand is warm and pink. Some swelling to the wri st is noted. My attending spoke with pattern fitter on-call Dr. Ty, recommend x-ray and following up with Dr. Jeffries in the office at her scheduled appointment this week. Negative x-ray. Patient is educated on these findings and recommendations from cardiology. Patient is instructed that she should have a low threshold for returning and educated on alarms symptoms that should prompt immediate reevaluation. Follow-up with PCP. Report back to ER with any new or worsening symptoms. Discussed return parameters and answered all questions. Patient conveyed verbal understanding and agreed to the plan. I discussed this case in detail with my attending Dr. Banda Undiagnosed new problem with uncertain prognosis? @ -No Drug Therapy requiring intensive monitoring for toxicity (Heparin, Nitro, Insulin, Cardizem)? @ -No Were any procedures done? @ -No Diagnosis/symptom? @ -Wrist pain Acute, or Chronic, or Acute on Chronic? @ -Acute Uncomplicated (without systemic symptoms) or Complicated (systemic symptoms)? @ -Uncomplicated Side effects of treatment? @ -No Exacerbation, Progression, or Severe Exacerbation? @ -No Poses a threat to life or bodily function? How? (Chest pain, [place], [place], pneumonia, PE, COPD, DKA, ARF, appy, cholecystitis, CVA, Diverticulitis, Homicidal, Suicidal, threat to staff... and all critical care pts) @ -Low likelihood Disposition Clinical Impression: Wrist pain Disposition: HOME SELF-CARE Condition: Good Instructions (If sedation given, give patient instructions): Swollen Joint (ED) Additional Instructions: Follow-up with Dr. Arreguin at scheduled appointment. Report back to ER with any new or worsening symptoms, including but not limited to increased pain, discoloration of the hand, cold hand. Is patient prescribed a controlled substance at d/c from ED?: No Referrals: Vaibhav Ac MD [Primary Care Provider] - 1-2 days Berto Jeffries MD [STAFF PHYSICIAN] - 03/23/23 Time of Disposition: 23:03
[2023-03-20 23:09] VITALS: BP 181/71; PULSE 70; RESP 17; TEMP 97.7
== END 2023-03-20 23:12 | disposition home or self-care (01) ==
LOC: EC 20:12
DX: M25.531 Pain in right wrist (principal); I25.10 Atherosclerotic heart disease of native coronary artery without angina pectoris; E11.9 Type 2 diabetes mellitus without complications; K21.9 Gastro-esophageal reflux disease without esophagitis; E78.5 Hyperlipidemia, unspecified; I10 Essential (primary) hypertension; M19.90 Unspecified osteoarthritis, unspecified site; E07.9 Disorder of thyroid, unspecified; I25.2 Old myocardial infarction; Z87.891 Personal history of nicotine dependence; Z88.5 Allergy status to narcotic agent; Z79.890 Hormone replacement therapy; Z79.899 Other long term (current) drug therapy
CPT/HCPCS: 99283

== ENCOUNTER 2023-04-14 07:39 | Day surgery (SDC) | payer MEDICARE ==
[~2023-04-14 07:39] MED LIST changes: -LACTATED RINGERS 1,000 ML IV SCH; -LIDOCAINE 1% (10MG/ML) FOR IV START INTRADERMA PRN; +SODIUM CHLORIDE 0.9% 1,000 ML in EMPTY BAG 1 BAG IV ONE
[2023-04-14 08:14] LABS: Glucose,Whole Blood 139 mg/dL (70-110)
[2023-04-14] MEDS ORDERED: METOPROLOL TARTRATE 50 MG TAB PO STA (08:14)
[2023-04-14] MEDS ORDERED: lisinopriL 5 MG TAB PO STA (08:14)
[2023-04-14] MEDS ORDERED: HEPARIN SODIUM 1,000 UN/ML (10ML VL) ONE ×2 (09:47→11:48)
[2023-04-14] MEDS ORDERED: LIDOCAINE 1% INJ 10MG/ML (20 ML MDV) ONE (09:47)
[2023-04-14] MEDS ORDERED: MIDAZOLAM 2 MG/2 ML VIAL IVP ONE ×3 (10:05→11:05)
[2023-04-14] MEDS ORDERED: LIDOCAINE 1% INJ 10MG/ML (20 ML MDV) SQ ONE (10:10)
[2023-04-14] MEDS ORDERED: fentaNYL (PF) 50 MCG/ML 2 ML AMP ONE (10:15)
[2023-04-14] MEDS ORDERED: fentaNYL (PF) 50 MCG/1 ML VIAL IVP ONE ×2 (10:17)
[2023-04-14] MEDS: HEPARIN SODIUM 1,000 UN/ML (10ML VL) IV ONE ×3 (10:21→12:00)
[2023-04-14] MEDS ORDERED: SODIUM CHLORIDE 0.9% 500 ML 500 ML with niCARdipine 6.25 MG, NITROGLYCERIN-D5W PMX 0.05... IV ONE ×8 (10:30→12:00)
[2023-04-14] MEDS ORDERED: NITROGLYCERIN 1000MCG/10ML SYRINGE INTRAARTER ONE (12:28)
[2023-04-14] MEDS ORDERED: niCARdipine Syringe (1,000 mcg/10 mL) INTRAARTER ONE (12:29)
[2023-04-14] MEDS ORDERED: NALOXONE 0.4 MG/ML 1 ML VIAL IVP PRN (12:39)
[2023-04-14] MEDS ORDERED: SODIUM CHLORIDE 0.9% 1,000 ML in EMPTY BAG 1 BAG IV SCH (12:45)
--- NOTE | 2023-04-14 12:48 | P.PCN ---
Date of Procedure: 04/14/23 Operative Findings: PERCUTANEOUS PERIPHERAL INTERVENTION Performing physician Berto Jeffries M.D. Procedure performed 1. Successful angioplasty of the distal right SFA 2. Successful stenting of the mid and proximal right SFA 3. Adjunctive use of orbital atherectomy and lithotripsy balloon and intravascular ultrasound 4. Ultrasound-guided access of the right common femoral artery and right anterior tibial artery 5. Right lower extremity angiogram Indication Right lower extremity intermittent claudication in this 77-year-old female patient to underwent an angiogram and that revealed occluded right SFA Approach Right common femoral artery and right anterior tibial artery Complications None Level of sedation Moderate with a sedation time of 145 minutes Procedure description After obtaining an informed consent the patient was brought to the cardiac director of cath lab. I decided to perform the angioplasty going from the pedal approach because the patient has bilateral iliac stents in a kissing technique. At that point I accessed the right anterior tibial artery using micropuncture technique under ultrasound guidance and the micropuncture wire passed easily then I placed a slender 5/6-Chinese sheath at the right anterior tibial artery with the SideArm of the sheath was connected into a cocktail containing heparin and verapamil and nitroglycerin. Subsequently I accessed the right common femoral artery to perform an angiogram using micro-puncture technique under ultrasound guidance and then I placed a 4-Chinese sheath at the right common femoral artery. The sheath at the right common femoral artery for angiogram only and the sheath at the anterior tibial artery is for intervention. Anticoagulation at that point was initiated using heparin with continuous ACT monitoring. Subsequently I crossed the chronic total occlusion of the right SFA using 014 wire with a backup support of 018 catheter. Subsequently the catheter was advanced over the wire to the proximal right common femoral artery were I did injection to prove that I was in the true lumen. At that point I did intravascular ultrasound of the right SFA using the manual pullback. It did show that I was in the true lumen all the way and also he did show severe/critical in-stent restenosis of the distal right SFA and severe de madison disease involving the proximal right SFA. I did atherectomy of the proximal right SFA with a de madison lesion using initially the directional atherectomy device but the device would not cross then using the orbital atherectomy using 1.25 mm shell. After that I did balloon angioplasty of the right SFA in the proximal portion and midportion using 6 mm balloon. An angiogram was performed and showed flow-limiting dissection I decided to cover with the stents. In the mid right SFA I deployed 7.0 x 140 mm stent and in the proximal right SFA I deployed 7.0 x 40 mm stents. Both stents were PTX drug-coated stents. After that I postdilated the stent using 6 mm balloon with an angiogram showing good angiographic results. Before the stents deployed I did balloon angioplasty of the in-stent restenosis involving the right SFA in the distal portion. The standard balloon including 5 mm and 6 mm balloon and also high pressure balloon will not open the stent fully. I decided to do lithotripsy balloon and also with that I was able to gain some lumen but not much. Finally we ended was in-stent restenosis about 30-40%. After that I did drug-coated balloon for the distal right SFA and that was 6 x 2 50 mm balloon. Final angiogram showed good angiographic results was better flow at the right SFA and right popliteal as well as below the knee on the right side. The procedure was completed there was no complication Postprocedure management 1. Dual antiplatelet therapy 2. Aggressive cholesterol control 3. Risk factors modification 4. Follow-up with the patient
[2023-04-14] MEDS ORDERED: IOPAMIDOL-370 100ML BTL INJ ONE (12:59)
--- NOTE | 2023-04-14 14:56 | IR ---
EXAMINATION TYPE: IR fire suppression captain femoral popliteal DATE OF EXAM: 04/14/2023 COMPARISON: NONE HISTORY: Fluoroscopy time. Fluoroscopy was provided to the referring clinician.
[2023-04-14 17:23] LABS: Glucose,Whole Blood 112 mg/dL (70-110)
[2023-04-14] MEDS: REPAGLINIDE 1 MG TAB PO SCH (17:24)
[2023-04-14] MEDS ORDERED: FAMOTIDINE 20 MG TAB PO SCH (17:30)
[2023-04-14] MEDS ORDERED: ATROPINE SULFATE 0.1 MG/ML 10ML SYRINGE ONE (19:44)
[2023-04-14 20:05] LABS: Glucose,Whole Blood 154 mg/dL (70-110)
[2023-04-14] MEDS: METOPROLOL TARTRATE 50 MG TAB PO SCH (21:39)
[2023-04-15 06:04] LABS: Glucose,Whole Blood 125 mg/dL (70-110)
[2023-04-15] MEDS ORDERED: LEVOTHYROXINE 112 MCG TAB PO SCH (06:30)
[2023-04-15] MEDS: REPAGLINIDE 1 MG TAB PO SCH (06:51)
[2023-04-15] MEDS ORDERED: PANTOPRAZOLE 40 MG TABLET PO SCH (07:30)
[2023-04-15] MEDS: METOPROLOL TARTRATE 50 MG TAB PO SCH (08:27)
[2023-04-15] MEDS ORDERED: EZETIMIBE 10 MG TAB PO SCH (09:00)
[2023-04-15] MEDS ORDERED: POTASSIUM CHLORIDE ER 10 MEQ TAB.ER.PRT PO SCH (09:00)
[2023-04-15] MEDS ORDERED: DAPAGLIFLOZIN PROPANEDIOL 10 MG TABLET PO SCH (09:00)
[2023-04-15] MEDS ORDERED: CLOPIDOGREL 75 MG TAB PO SCH (09:00)
[2023-04-15] MEDS ORDERED: ASPIRIN 81 MG PO SCH (09:00)
[2023-04-15] MEDS ORDERED: lisinopriL 5 MG TAB PO SCH (09:00)
[2023-04-15] MEDS ORDERED: NON FORMULARY DRUG (Liraglutide [Victoza 3-Pak] 0.6 MG/0.1 ML Ml) SQ SCH (09:00)
[2023-04-15] MEDS ORDERED: CYANOCOBALAMIN 500 MCG TAB PO SCH (09:00)
[2023-04-15 09:07] VITALS: BP 146/78; PULSE 76; TEMP 97.7
[2023-04-15 09:41] VITALS: RESP 14
[2023-04-15 10:51] VITALS: BMI 27.3
--- NOTE | 2023-04-15 11:56 | P.DS ---
Providers Attending physician: Berto Jeffries Primary care physician: Vaibhav Ac MD Hospital Course: The patient is pleasant 77-year-old female patient with CAD and status post CABG and PAD with prior angioplasty of bilateral iliac was admitted to the hospital yesterday and underwent successful balloon angioplasty of the right SFA. She was seen this morning. The procedure was performed from the right foot as well as a right femoral artery. Both sites are soft and nontender with no b ruises. The patient is going to be discharged home on dual antiplatelet therapy and I will follow-up with the patient next week in the office. The patient is not going to be discharge on a statin because she has a statin intolerance Plan - Discharge Summary Discharge Rx Participant: No New Discharge Prescriptions: Continue Ezetimibe [Zetia] 10 mg PO DAILY Ergocalciferol [Vitamin D2 (DRISDOL)] 50,000 units PO Q14D Clopidogrel [Plavix] 75 mg PO DAILY #30 tab Metoprolol Tartrate [Lopressor] 100 mg PO BID Levothyroxine Sodium [Synthroid] 112 mcg PO QAM Empagliflozin [Jardiance] 25 mg PO DAILY lisinopriL [Zestril] 5 mg PO QAM Famotidine [Pepcid] 40 mg PO AC-SUPPER Repaglinide [Prandin] 1 mg PO AC-BID Potassium Chloride [Klor-Con 8] 8 meq PO DAILY Liraglutide [Victoza 3-Luiz] 1.8 mg SQ QAM Cyanocobalamin (Vitamin B-12) [Vitamin B-12] 1,000 mcg PO DAILY Aspirin 81 mg PO DAILY tab Pantoprazole Sodium 40 mg PO DAILY Discontinued metFORMIN HCL ER [Glucophage XR] 500 mg PO DAILY Discharge Medication List Ergocalciferol [Vitamin D2 (DRISDOL)] 50,000 units PO Q14D 01/31/14 [History] Ezetimibe [Zetia] 10 mg PO DAILY 01/31/14 [History] Clopidogrel [Plavix] 75 mg PO DAILY #30 tab 12/06/18 [Rx] Empagliflozin [Jardiance] 25 mg PO DAILY 11/13/19 [History] Levothyroxine Sodium [Synthroid] 112 mcg PO QAM 11/13/19 [History] Metoprolol Tartrate [Lopressor] 100 mg PO BID 11/13/19 [History] lisinopriL [Zestril] 5 mg PO QAM 12/13/19 [History] Cyanocobalamin (Vitamin B-12) [Vitamin B-12] 1,000 mcg PO DAILY 12/12/22 [History] Famotidine [Pepcid] 40 mg PO AC-SUPPER 12/12/22 [History] Liraglutide [Victoza 3-Luiz] 1.8 mg SQ QAM 12/12/22 [History] Potassium Chloride [Klor-Con 8] 8 meq PO DAILY 12/12/22 [History] Repaglinide [Prandin] 1 mg PO AC-BID 12/12/22 [History] Aspirin 81 mg PO DAILY tab 12/16/22 [Rx] Pantoprazole Sodium 40 mg PO DAILY 01/01/23 [History] Follow up Appointment(s)/Referral(s): Berto Jeffries MD [STAFF PHYSICIAN] - 04/28/23 3:00 pm (Wednesday) Patient Instructions/Handouts: Peripheral Vascular Stent Placement (DC)
[2023-04-27] MEDS ORDERED: ERGOCALCIFEROL 1,250 MCG (50,000 IU) CAPSULE PO SCH (09:00)
== END 2023-04-15 11:23 ==
LOC: CATHCVL 07:39 → 3SCARD 15:29 → CATHCVL 04-15 11:23
PROVIDERS: ATTEND Internal Medicine Interventional Cardiology
DX: I70.213 Atherosclerosis of native arteries of extremities with intermittent claudication, bilateral legs (principal); I73.9 Peripheral vascular disease, unspecified; I10 Essential (primary) hypertension; E78.5 Hyperlipidemia, unspecified; E11.9 Type 2 diabetes mellitus without complications; F17.210 Nicotine dependence, cigarettes, uncomplicated; Z95.1 Presence of aortocoronary bypass graft; Z79.02 Long term (current) use of antithrombotics/antiplatelets; Z79.82 Long term (current) use of aspirin; Z79.899 Other long term (current) drug therapy; Z79.84 Long term (current) use of oral hypoglycemic drugs
CPT/HCPCS: 37227; 37252; C1894 ×4; C1769 ×5; C1714 ×2; C1725 ×5; C1753; C1874 ×2; C2623; C9767; J2250; J2001; J1644 ×2; Q9967; J3010

== ENCOUNTER 2023-08-17 03:06 | Emergency (ER) | payer MEDICARE ==
[2023-08-17] MEDS ORDERED: KETOROLAC 15 MG/ML 1 ML VIAL IM STA (03:24)
[2023-08-17] MEDS ORDERED: DEXAMETHASONE SOD PHOSPHATE 10 MG/ML 1 ML VIAL IM STA (03:24)
[2023-08-17] MEDS ORDERED: ORPHENADRINE 30 MG/ML 2 ML VIAL IM STA (03:24)
[2023-08-17] MEDS ORDERED: LIDOCAINE 5% PATCH TOPICAL ONE ×2 (03:24→03:45)
--- NOTE | 2023-08-17 03:28 | ED ---
Neck Injury/Pain HPI - General Chief Complaint: Neck Pain/Injury Stated Complaint: Neck Pain, Stiffness Time Seen by Provider: 08/17/23 03:21 Source: patient, RN notes reviewed Mode of arrival: wheelchair Limitations: no limitations - History of Present Illness Initial Comments: This is a 77-year-old female who presents to the emergency department for neck pain. States that this has been present over the last 3 days. Describes this as a tightness and cramping sensation she feels like is related to a muscle strain. Denies any injuries. She has not taken anything for management of her symptoms. MD Complaint: neck pain - Related Data Home Medications Medication Instructions Recorded Confirmed Ergocalciferol [Vitamin D2 50,000 units PO Q14D 01/31/14 04/16/23 (DRISDOL)] Ezetimibe [Zetia] 10 mg PO DAILY 01/31/14 04/21/23 Empagliflozin [Jardiance] 25 mg PO DAILY 11/13/19 04/21/23 Levothyroxine Sodium [Synthroid] 112 mcg PO QAM 11/13/19 04/21/23 Metoprolol Tartrate [Lopressor] 100 mg PO BID 11/13/19 04/21/23 lisinopriL [Zestril] 5 mg PO BID 12/13/19 04/21/23 Cyanocobalamin (Vitamin B-12) 1,000 mcg PO DAILY 12/12/22 04/16/23 [Vitamin B-12] Famotidine [Pepcid] 20 mg PO AC-SUPPER 12/12/22 04/21/23 Liraglutide [Victoza 3-Luiz] 1.8 mg SQ QAM 12/12/22 04/21/23 Potassium Chloride [Klor-Con 8] 8 meq PO DAILY 12/12/22 04/16/23 Repaglinide [Prandin] 1 mg PO AC-BID 12/12/22 04/21/23 Pantoprazole Sodium 40 mg PO DAILY 01/01/23 04/21/23 Previous Rx's Medication Instructions Recorded Clopidogrel [Plavix] 75 mg PO DAILY #30 tab 12/06/18 Aspirin 81 mg PO DAILY tab 12/16/22 methocarbamoL [Robaxin-750] 1,500 mg PO TID PRN #30 tab 08/17/23 predniSONE 50 mg PO DAILY 5 Days #5 tab 08/17/23 Allergies Allergy/AdvReac Type Severity Reaction Status Date / Time hydromorphone HCl AdvReac RESPIRATORY Verified 04/16/23 11:57 [From Dilaudid] DEPRESSION Review of Systems ROS Statement: Those systems with pertinent positive or pertinent negative responses have been documented in the HPI. ROS Other: All systems not noted in ROS Statement are negative. Past Medical History Past Medical History: Coronary Artery Disease (CAD), Chest Pain / Angina, Diabetes Mellitus, Eye Disorder, GERD/Reflux, Hearing Disorder / Deafness, Hyperlipidemia, Hypertension, Myocardial Infarction ([place]), Myocardial Infarction (non Q-wave), Osteoarthritis (OA), Thyroid Disorder, Vascular Disorder Additional Past Medical History / Comment(s): Peripheral Arterial Disease. Glaucoma, has left eye stent. Bilateral hearing aids. slightly sob at times follows with pulminologist Last Myocardial Infarction Date:: 2001 History of Any Multi-Drug Resistant Organisms: None Reported Past Surgical History: Adenoidectomy, Coronary Bypass/CABG, Heart Catheterization, Heart Catheterization With Stent, Tonsillectomy, Tubal Ligation Additional Past Surgical History / Comment(s): Triple bypass in 2019 EXP. LAP 02/2012, STENT TO HEART X1, INFRA RENAL AORTIC STENT, STENTS TO BILATERAL LEGS, AORTOGRAM WITH RUNOFF, bilateral cataracts removed, stent to left eye. Past Anesthesia/Blood Transfusion Reactions: No Reported Reaction Additional Past Anesthesia/Blood Transfusion Reaction / Comment(s): Has never had a blood transfusion. Date of Last Stent Placement:: 2001 Past Psychological History: No Psychological Hx Reported Smoking Status: Former smoker Past Alcohol Use History: None Reported Past Drug Use History: None Reported - Past Family History Mother Family Medical History: Dementia Additional Family Medical History / Comment(s): HEART PROBLEMS. Father Family Medical History: Coronary Artery Disease (CAD), Myocardial Infarction ([place]) Additional Family Medical History / Comment(s): Her father at age 79 with a myocardial infarction. General Exam Limitations: no limitations General appearance: alert, in no apparent distress Head exam: Present: atraumatic, normocephalic, normal inspection Neck exam: Present: tenderness (Posterior cervical spine), other (Range of motion is limited by pain). Absent: meningismus Respiratory exam: Present: normal lung sounds bilaterally. Absent: respiratory distress, wheezes, rales, rhonchi, stridor Cardiovascular Exam: Present: regular rate, normal rhythm, normal heart sounds. Absent: systolic murmur, diastolic murmur, rubs, gallop, clicks Neurological exam: Present: alert, oriented X3, CN II-XII intact Psychiatric exam: Present: normal affect, normal mood Skin exam: Present: warm, dry, intact, normal color. Absent: rash Course Vital Signs 08/17/23 08/17/23 03:09 05:12 Temperature 98.2 F Pulse Rate 86 75 Respiratory 16 18 Rate Blood Pressure 156/61 165/80 O2 Sat by Pulse 97 96 Oximetry Medical Decision Making - Medical Decision Making This is a 77-year-old female who presents to the emergency department for neck pain. Was pt. sent in by a medical professional or institution? @ -No Did you speak to anyone other than the patient for history? @ -No Did you review nursing and triage notes? @ -Yes, and I agree, it is accurate with regards to the patient's symptoms. Were old charts reviewed? @ -No Differential Diagnosis? @ -Differential Neck Pain: Fracture, dislocation, contusion, strain, DDD, disc herniation, this is not meant to be an all-inclusive list. EKG interpreted by me (3pts min.)? @ -Not obtained X-rays interpreted by me (1pt min.)? @ -Not obtained CT interpreted by me (1pt min.)? @ -Not obtained U/S interpreted by me (1pt. min.)? @ -Not obtained What testing was considered but not performed? (CT, X-rays, U/S, labs)? Why? @ -None What meds were considered but not given? Why? @ -None Did you discuss the management of the patient with other professionals? @ -No Did you reconcile home meds? @ -No Was smoking cessation discussed for >3mins.? @ -No Was critical care preformed (if so, how long)? @ -No Were there social determinants of health that impacted care today? How? (Homelessness, low income, unemployed, alcoholism, drug addiction, transportation, low edu. Level, literacy, decrease access to med. care, nursing home, rehab)? @ -No Was there de-escalation of care discussed even if they declined? (Discuss DNR or withdrawal of care, Hospice)? @ -No What co-morbidities impacted this encounter? (DM, HTN, Smoking, COPD, CAD, Cancer, CVA, Hep., AIDS, mental health diagnosis, sleep apnea, morbid obesity)? @ -Osteoarthritis Was patient admitted / discharged? @ -Discharged. Physical examination and the description of the patient's symptoms is consistent with a cervical strain. Her pain was well controlled in the emergency department and at that point she felt stable for discharge home. Prescription for prednisone and Robaxin provided with dosing instructions reviewed. Otherwise advised close follow-up with her primary care provider. Undiagnosed new problem with uncertain prognosis? @ -None Drug Therapy requiring intensive monitoring for toxicity (Heparin, Nitro, Insulin, Cardizem)? @ -None Were any procedures done? @ -None Diagnosis/symptom? @ -Cervical strain Acute, or Chronic, or Acute on Chronic? @ -Acute Uncomplicated (without systemic symptoms) or Complicated (systemic symptoms)? @ -Uncomplicated Side effects of treatment? @ -None Exacerbation, Progression, or Severe Exacerbation] @ -Not applicable Poses a threat to life or bodily function? @ -No Return precautions reviewed in depth, the patient is instructed to return to the emergency department with any new, worsening, or concerning symptoms. Patient verbalized understanding. This case was discussed in detail with the attending ED physician, Dr. Bonner. Presentation, findings, and treatment plan discussed in detail as well. Disposition Clinical Impression: Cervical strain Disposition: HOME SELF-CARE Instructions (If sedation given, give patient instructions): Cervical Strain (ED) Additional Instructions: Return to the emergency department with any new, worsening, or concerning symptoms. Take the prednisone daily for 5 days. Take the Robaxin as 1-2 tablets up to 3-4 times daily for pain and tightness. Apply warm moist heat. Follow up with your primary care provider in 1-2 days. Prescriptions: predniSONE 50 mg PO DAILY 5 Days #5 tab methocarbamoL [Robaxin-750] 1,500 mg PO TID PRN #30 tab PRN Reason: Pain Is patient prescribed a controlled substance at d/c from ED?: No Referrals: None,Stated [Primary Care Provider] - 1-2 days
[2023-08-17 03:33] VITALS: TEMP 98.2
[2023-08-17] MEDS ORDERED: HYDROcodone/APAP 5-325MG 1 EACH TAB PO STA ×2 (04:23→05:04)
[2023-08-17] MEDS ORDERED: ACET/COD 300 MG/30 MG STARTER PACK 6 TAB BTL PO STA (05:03)
[2023-08-17 05:15] VITALS: BP 165/80; PULSE 75; RESP 18
== END 2023-08-17 05:13 | disposition home or self-care (01) ==
LOC: EC 03:06
DX: S16.1XXA Strain of muscle, fascia and tendon at neck level, initial encounter (principal); E11.51 Type 2 diabetes mellitus with diabetic peripheral angiopathy without gangrene; E78.5 Hyperlipidemia, unspecified; I10 Essential (primary) hypertension; I25.10 Atherosclerotic heart disease of native coronary artery without angina pectoris; I25.2 Old myocardial infarction; K21.9 Gastro-esophageal reflux disease without esophagitis; E07.9 Disorder of thyroid, unspecified; Z87.891 Personal history of nicotine dependence; Z79.890 Hormone replacement therapy; Z79.899 Other long term (current) drug therapy; X58.XXXA Exposure to other specified factors, initial encounter; Z88.5 Allergy status to narcotic agent
CPT/HCPCS: 99283; 96372 ×3; J1100; J2360; J1885

== ENCOUNTER → 2023-10-12 | Outpatient (CLI) | payer MEDICARE ==
--- NOTE | 2023-10-12 18:11 | CT ---
EXAMINATION TYPE: CT chest wo con DATE OF EXAM: 10/12/2023 COMPARISON: CTA chest dated 12/12/2022 HISTORY: Pulmonary fibrosis, former smoker x [address] DLP: 797.7 mGycm. Automated Exposure Control for Dose Reduction was Utilized. TECHNIQUE: CT scan of the thorax is performed without IV contrast. FINDINGS: There few small focal areas of subpleural parenchymal honeycombing. There are a few scattered fine in terstitial infiltrates and mild by basilar bronchiectasis. There is no airspace consolidation or grou ndglass density. There is no pleural effusion or pneumothorax. The great vessels the chest are normal is no mediastinal, hilar or axillary adenopathy. The osseous structures are intact. Limited scanning through the upper abdomen reveals minimal choleli thiasis with no other significant abnormality. IMPRESSION: 1. Mild to moderate chronic interstitial changes as described above most consistent with mild UIP. 2. Mild bibasilar bronchiectasis. 3. No acute cardiopulmonary disease.
== END | disposition home or self-care (01) ==
LOC: RADCTMAIN 16:34
PROVIDERS: ATTEND Internal Medicine
DX: J47.9 Bronchiectasis, uncomplicated (principal); J84.9 Interstitial pulmonary disease, unspecified
CPT/HCPCS: 71250

== ENCOUNTER 2024-01-08 09:09 | Emergency (ER) | payer MEDICARE ==
[2024-01-08 09:26] VITALS: TEMP 98.1
--- NOTE | 2024-01-08 09:40 | ED ---
URI HPI - General Chief Complaint: Upper Respiratory Infection Stated Complaint: Coughing up blood Time Seen by Provider: 01/08/24 09:20 Source: patient, RN notes reviewed Mode of arrival: ambulatory Limitations: no limitations - History of Present Illness Initial Comments: 78-year-old female with history of pulmonary fibrosis presenting with hemoptysis for 1 day. Patient states she has had a URI for 4 days consisting of cough and rhinorrhea. States cough is dry. Last night, reports she noticed she spit up a small amount of blood. This morning while eating breakfast had another episode of spitting up blood. States there is not a large amount of blood, and the blood appears to be mixed in with the sputum. She is a previous smoker. She denies chest pain, shortness of breath, fever, chills, body aches, recent travel, wheezing. - Related Data Home Medications Medication Instructions Recorded Confirmed Ergocalciferol [Vitamin D2 50,000 units PO Q14D 01/31/14 04/16/23 (DRISDOL)] Ezetimibe [Zetia] 10 mg PO DAILY 01/31/14 04/21/23 Empagliflozin [Jardiance] 25 mg PO DAILY 11/13/19 04/21/23 Levothyroxine Sodium [Synthroid] 112 mcg PO QAM 11/13/19 04/21/23 Metoprolol Tartrate [Lopressor] 100 mg PO BID 11/13/19 04/21/23 lisinopriL [Zestril] 5 mg PO BID 12/13/19 04/21/23 Cyanocobalamin (Vitamin B-12) 1,000 mcg PO DAILY 12/12/22 04/16/23 [Vitamin B-12] Famotidine [Pepcid] 20 mg PO AC-SUPPER 12/12/22 04/21/23 Liraglutide [Victoza 3-Luiz] 1.8 mg SQ QAM 12/12/22 04/21/23 Potassium Chloride [Klor-Con 8] 8 meq PO DAILY 12/12/22 04/16/23 Repaglinide [Prandin] 1 mg PO AC-BID 12/12/22 04/21/23 Pantoprazole Sodium 40 mg PO DAILY 01/01/23 04/21/23 Previous Rx's Medication Instructions Recorded Clopidogrel [Plavix] 75 mg PO DAILY #30 tab 12/06/18 Aspirin 81 mg PO DAILY tab 12/16/22 methocarbamoL [Robaxin-750] 1,500 mg PO TID PRN #30 tab 08/17/23 predniSONE 50 mg PO DAILY 5 Days #5 tab 08/17/23 Benzonatate [Tessalon Perles] 100 mg PO TID PRN #10 capsule 01/08/24 Allergies Allergy/AdvReac Type Severity Reaction Status Date / Time hydromorphone HCl AdvReac RESPIRATORY Verified 01/08/24 09:15 [From Dilaudid] DEPRESSION Review of Systems ROS Statement: Those systems with pertinent positive or pertinent negative responses have been documented in the HPI. ROS Other: All systems not noted in ROS Statement are negative. Past Medical History Past Medical History: Coronary Artery Disease (CAD), Chest Pain / Angina, Diabetes Mellitus, Eye Disorder, GERD/Reflux, Hearing Disorder / Deafness, Hyperlipidemia, Hypertension, Myocardial Infarction ([place]), Myocardial Infarction (non Q-wave), Osteoarthritis (OA), Thyroid Disorder, Vascular Disorder Additional Past Medical History / Comment(s): Peripheral Arterial Disease. Glaucoma, has left eye stent. Bilateral hearing aids. slightly sob at times follows with pulminologist Last Myocardial Infarction Date:: 2001 History of Any Multi-Drug Resistant Organisms: None Reported Past Surgical History: Adenoidectomy, Coronary Bypass/CABG, Heart Catheterization, Heart Catheterization With Stent, Tonsillectomy, Tubal Ligation Additional Past Surgical History / Comment(s): Triple bypass in 2019 EXP. LAP 02/2012, STENT TO HEART X1, INFRA RENAL AORTIC STENT, STENTS TO BILATERAL LEGS, AORTOGRAM WITH RUNOFF, bilateral cataracts removed, stent to left eye. Past Anesthesia/Blood Transfusion Reactions: No Reported Reaction Additional Past Anesthesia/Blood Transfusion Reaction / Comment(s): Has never had a blood transfusion. Date of Last Stent Placement:: 2001 Past Psychological History: No Psychological Hx Reported Smoking Status: Former smoker Past Alcohol Use History: Rare Past Drug Use History: None Reported - Past Family History Mother Family Medical History: Dementia Additional Family Medical History / Comment(s): HEART PROBLEMS. Father Family Medical History: Coronary Artery Disease (CAD), Myocardial Infarction ([place] ) Additional Family Medical History / Comment(s): Her father at age 79 with a myocardial infarction. General Exam Limitations: no limitations General appearance: alert, in no apparent distress Head exam: Present: atraumatic, normocephalic, normal inspection Eye exam: Present: normal appearance, PERRL, EOMI. Absent: scleral icterus, conjunctival injection, periorbital swelling ENT exam: Present: normal exam, normal oropharynx, mucous membranes moist Neck exam: Present: normal inspection. Absent: tenderness, meningismus, lymphadenopathy Respiratory exam: Present: normal lung sounds bilaterally. Absent: respiratory distress, wheezes, rales, rhonchi, stridor Cardiovascular Exam: Present: regular rate, normal rhythm, normal heart sounds. Absent: systolic murmur, diastolic murmur, rubs, gallop, clicks GI/Abdominal exam: Present: soft, normal bowel sounds. Absent: distended, tenderness, guarding, rebound, rigid Skin exam: Present: warm, dry, intact, normal color. Absent: rash Course Vital Signs 01/08/24 01/08/24 09:10 10:03 Temperature 98.1 F Pulse Rate 76 71 Respiratory 20 16 Rate Blood Pressure 154/66 161/69 O2 Sat by Pulse 97 98 Oximetry Medical Decision Making - Medical Decision Making Was pt. sent in by a medical professional or institution (, PA, INDEP[employer]ENT BEAUTY CONSULTANT, urgent care, hospital, or senior living...) When possible be specific @ -No Did you speak to anyone other than the patient for history (EMS, parent, family, police, friend...)? What history was obtained from this source @ -No Did you review nursing and triage notes (agree or disagree)? Why? @ -I reviewed and agree with nursing and triage notes Were old charts reviewed (outside hosp., previous admission, EMS record, old EKG, old radiological studies, urgent care reports/EKG's, senior living records)? Report findings @ -No old charts were reviewed Differential Diagnosis (chest pain, altered mental status, abdominal pain women, abdominal pain men, vaginal bleeding, weakness, fever, dyspnea, syncope, headache, dizziness, GI bleed, back pain, seizure, CVA, palpatations, mental health, musculoskeletal)? @ -Acute bronchitis, pneumonia, pulmonary embolism, tuberculosis EKG interpreted by me (3pts min.). @ -Left bundle branch block X-rays interpreted by me (1pt min.). @ -Chest x-ray reveals no acute process CT interpreted by me (1pt min.). @ -None done U/S interpreted by me (1pt. min.). @ -None done What testing was considered but not performed or refused? (CT, X-rays, U/S, labs)? Why? @ -D-dimer not performed due to vital stable, no tachycardia, patient satting 98% on room air, no chest pain, low risk for PE What meds were considered but not given or refused? Why? @ -None Did you discuss the management of the patient with other professionals (professionals i.e. , PA, INDEP[employer]ENT BEAUTY CONSULTANT, lab, RT, psych nurse, healthcare social worker, engraving plate maker, teacher, chief quality officer, case maker)? Give summary @ -No Was smoking cessation discussed for >3mins.? @ -No Was critical care preformed (if so, how long)? @ -No Were there social determinants of health that impacted care today? How? (Homelessness, low income, unemployed, alcoholism, drug addiction, transportation, low edu. Level, literacy, decrease access to med. care, [facility]ci, rehab)? @ -No Was there de-escalation of care discussed even if they declined (Discuss DNR or withdrawal of care, Hospice)? DNR status @ -No What co-morbidities impacted this encounter? (DM, HTN, Smoking, COPD, CAD, Cancer, CVA, ARF, Chemo, Hep., AIDS, mental health diagnosis, sleep apnea, morbid obesity)? @ -None Was patient admitted / discharged? Hospital course, mention meds given and route, prescriptions, significant lab abnormalities, going to OR and other pertinent info. @ -Was discharged. Patient was seen and examined for hemoptysis and acute URI. Vitals were stable and examination was unremarkable. EKG revealed left bundle branch block however patient is not having any chest pain at this time. Chest x-ray was unremarkable, and lab work was unremarkable. COVID, flu, RSV were negative. Discussed with patient that hemoptysis is likely due to acute viral bronchitis. Supportive treatment discussed. Prescribed Tessalon Perles for cough upon patient request. Return symptoms discussed with patient. Patient discharged in stable condition. Case discussed with Dr. Lagos. Undiagnosed new problem with uncertain prognosis? @ -No Drug Therapy requiring intensive monitoring for toxicity (Heparin, Nitro, Insulin, Cardizem)? @ -No Were any procedures done? @ -No Diagnosis/symptom? @ -Acute viral bronchitis Acute, or Chronic, or Acute on Chronic? @ -Acute Uncomplicated (without systemic symptoms) or Complicated (systemic symptoms)? @ -Uncomplicated Side effects of treatment? @ -No Exacerbation, Progression, or Severe Exacerbation? @ -No Poses a threat to life or bodily function? How? (Chest pain, [place], [place], pneumonia, PE, COPD, DKA, ARF, appy, cholecystitis, CVA, Diverticulitis, Homicidal, Suicidal, threat to staff... and all critical care pts) @ -No - Lab Data Result diagrams: 01/08/24 10:02 01/08/24 10:02 Lab Results 01/08/24 01/08/24 01/08/24 Range/Units 10:02 10:02 10:02 WBC 7.2 (3.8-10.6) k/uL RBC 4.61 (3.80-5.40) m/uL Hgb 10.9 L (11.4-16.0) gm/dL Hct 35.3 (34.0-46.0) % MCV 76.4 L (80.0-100.0) fL MCH 23.7 L (25.0-35.0) pg MCHC 31.0 (31.0-37.0) g/dL RDW 16.8 H (11.5-15.5) % Plt Count 242 (150-450) k/uL MPV 7.6 Neutrophils % 71 % Lymphocytes % 19 % Monocytes % 4 % Eosinophils % 4 % Basophils % 1 % Neutrophils # 5.1 (1.3-7.7) k/uL Lymphocytes # 1.3 (1.0-4.8) k/uL Monocytes # 0.3 (0-1.0) k/uL Eosinophils # 0.3 (0-0.7) k/uL Basophils # 0.1 (0-0.2) k/uL Hypochromasia Slight Anisocytosis Slight Microcytosis Slight Sodium 137 (137-145) mmol/L Potassium 4.2 (3.5-5.1) mmol/L Chloride 107 (98-107) mmol/L Carbon Dioxide 22 (22-30) mmol/L Anion Gap 8 mmol/L BUN 16 (7-17) mg/dL Creatinine 0.81 (0.52-1.04) mg/dL Est GFR (CKD-EPI)AfAm 80 (>60 ml/min/1.73 sqM) Est GFR (CKD-EPI)NonAf 70 (>60 ml/min/1.73 sqM) Glucose 219 H (74-99) mg/dL Calcium 8.8 (8.4-10.2) mg/dL Total Bilirubin 0.7 (0.2-1.3) mg/dL AST 30 (14-36) U/L ALT 17 (4-34) U/L Alkaline Phosphatase 106 (38-126) U/L Total Protein 6.7 (6.3-8.2) g/dL Albumin 3.5 (3.5-5.0) g/dL Influenza Type A (PCR) Not Detected (Not Detectd) Influenza Type B (PCR) Not Detected (Not Detectd) RSV (PCR) Not Detected (Not Detectd) SARS-CoV-2 (PCR) Not Detected (Not Detectd) - EKG Data EKG Comments: EKG reveals sinus rhythm with left bundle branch block. Vent rate 68 bpm, AK i nterval 187, QRS duration 158, QT/QTc 456/473 Disposition Clinical Impression: Acute viral bronchitis Disposition: HOME SELF-CARE Condition: Stable Instructions (If sedation given, give patient instructions): Acute Bronchitis (ED) Additional Instructions: Please return to the Emergency Department if symptoms worsen or any other concerns. Prescriptions: Benzonatate [Tessalon Perles] 100 mg PO TID PRN #10 capsule PRN Reason: As needed for cough Is patient prescribed a controlled substance at d/c from ED?: No Referrals: Karley Winslow MD [Primary Care Provider] - 1-2 days Time of Disposition: 13:59
[2024-01-08 10:05] VITALS: RESP 16
[2024-01-08 10:15] LABS: Anisocytosis Slight; Basophils # (A) 0.1 k/uL (0-0.2); Basophils % (A) 1 %; Eosinophils # (A) 0.3 k/uL (0-0.7); Eosinophils % (A) 4 %; HCT 35.3 % (34.0-46.0); HGB 10.9 gm/dL (11.4-16.0); Hypochromasia Slight; Lymphocytes # (A) 1.3 k/uL (1.0-4.8); Lymphocytes % (A) 19 %; MCH 23.7 pg (25.0-35.0); MCV 76.4 fL (80.0-100.0); Mean Platelet Volume 7.6; Microcytosis Slight; Monocytes # (A) 0.3 k/uL (0-1.0); Monocytes % (A) 4 %; Neutrophils # (A) 5.1 k/uL (1.3-7.7); Neutrophils % (A) 71 %; Platelet Count 242 k/uL (150-450); RBC 4.61 m/uL (3.80-5.40); RDW 16.8 % (11.5-15.5); WBC 7.2 k/uL (3.8-10.6)
--- NOTE | 2024-01-08 10:24 | XR ---
EXAMINATION TYPE: XR chest 2V DATE OF EXAM: 01/08/2024 9:55 AM CLINICAL INDICATION:Female, 78 years old with history of hemoptysis; [facility] COMPARISON: Chest radiographs from 12/12/2022 TECHNIQUE: XR chest 2V Frontal and lateral views of the chest. FINDINGS: Lungs/Pleura: Prominent interstitial lung markings are seen scattered throughout the lungs. No eviden ce of focal consolidation, pneumothorax or pleural effusion. Pulmonary vascularity: Unremarkable. Heart/mediastinum: Cardiomediastinal silhouette is unremarkable. Musculoskeletal: No acute osseous pathology. Midline sternotomy wires are noted. IMPRESSION: Chronic changes without acute pulmonary process. No significant change from prior.
[2024-01-08 10:27] LABS: ALT 17 U/L (4-34); African American GFR (CKD) 80 (>60 ml/min/1.73 sqM); Albumin 3.5 g/dL (3.5-5.0); Anion Gap 8 mmol/L; Blood Urea Nitrogen 16 mg/dL (7-17); Calcium 8.8 mg/dL (8.4-10.2); Carbon Dioxide 22 mmol/L (22-30); Chloride 107 mmol/L (98-107); Glucose 219 mg/dL (74-99); Non-African American GFR(CKD) 70 (>60 ml/min/1.73 sqM); Sodium 137 mmol/L (137-145); Total Bilirubin 0.7 mg/dL (0.2-1.3); Total Protein 6.7 g/dL (6.3-8.2)
[2024-01-08 10:31] LABS: AST 30 U/L (14-36); Alkaline Phosphatase 106 U/L (38-126); Potassium 4.2 mmol/L (3.5-5.1)
[2024-01-08 14:30] VITALS: BP 158/62; PULSE 74
== END 2024-01-08 14:23 | disposition home or self-care (01) ==
LOC: EC 09:09
DX: J20.8 Acute bronchitis due to other specified organisms (principal); I44.7 Left bundle-branch block, unspecified; Z87.891 Personal history of nicotine dependence; Z88.5 Allergy status to narcotic agent
CPT/HCPCS: 36415; 71046; 80053; 85025; 87636; 93005; 99284

== ENCOUNTER 2024-05-28 03:41 | Inpatient (IN) | payer MEDICARE ==
--- NOTE | 2024-05-28 04:09 | ED ---
Chest Pain HPI - General Chief Complaint: Chest Pain Stated Complaint: chest pain Time Seen by Provider: 05/28/24 03:43 Source: patient, EMS Mode of arrival: EMS Limitations: no limitations - History of Present Illness Initial Comments: This patient is 78-year-old woman with history of previous coronary artery bypass, who developed chest pain tonight around midnight when she was watching television. The patient states that she thought that it was reflux and she took antacids. States that the symptoms resolved and she went to bed. She woke up around 1:00 with the pain again. She tried taking antacids without total relief. She states that as the pain kept coming back she felt she should be seen here. The patient was given aspirin and nitroglycerin en route here and the symptoms have resolved. She states that there is still a little something there but she does not want any analgesic. Patient denies associated symptoms, no dyspnea, diaphoresis, nausea or vomiting. MD Complaint: chest pain Onset/Timin -: hour(s) Onset: during rest Pain Location: substernal Pain Radiation: none Severity: moderate Quality: heaviness Consistency: constant Improves With: nitroglycerin, antacids Worsens With: nothing Treatments Prior to Arrival: aspirin, nitroglycerin - Related Data Home Medications Medication Instructions Recorded Confirmed Ergocalciferol [Vitamin D2 1,250 mcg PO Q14D 01/31/14 05/28/24 (DRISDOL)] Ezetimibe [Zetia] 10 mg PO DAILY 01/31/14 05/28/24 Empagliflozin [Jardiance] 25 mg PO DAILY 11/13/19 05/28/24 Levothyroxine Sodium [Synthroid] 112 mcg PO AC-BRKFST 11/13/19 05/28/24 Metoprolol Tartrate [Lopressor] 100 mg PO BID-W/MEALS 11/13/19 05/28/24 Cyanocobalamin (Vitamin B-12) 1,000 mcg PO DAILY 12/12/22 05/28/24 [Vitamin B-12] Famotidine [Pepcid] 40 mg PO HS 12/12/22 05/28/24 Liraglutide [Victoza 3-Luiz] 1.8 mg SQ DAILY 12/12/22 05/28/24 Potassium Chloride [Klor-Con 8] 8 meq PO DAILY 12/12/22 05/28/24 Repaglinide [Prandin] 1 mg PO AC-BID 12/12/22 05/28/24 Pantoprazole Sodium 40 mg PO AC-BRKFST 01/01/23 05/28/24 Lovastatin [Mevacor] 20 mg PO HS 05/28/24 05/28/24 lisinopriL [Zestril] 5 mg PO DAILY 05/28/24 05/28/24 metFORMIN HCL ER [Glucophage XR] 500 mg PO DAILY 05/28/24 05/28/24 Previous Rx's Medication Instructions Recorded Clopidogrel [Plavix] 75 mg PO DAILY #30 tab 12/06/18 Aspirin 81 mg PO DAILY tab 12/16/22 Allergies Allergy/AdvReac Type Severity Reaction Status Date / Time hydromorphone HCl AdvReac RESPIRATORY Verified 05/28/24 08:27 [From Dilaudid] DEPRESSION Review of Systems ROS Statement: Those systems with pertinent positive or pertinent negative responses have been documented in the HPI. ROS Other: All systems not noted in ROS Statement are negative. Constitutional: Denies: fever, chills Respiratory: Denies: cough, dyspnea Cardiovascular: Reports: chest pain. Denies: palpitations, orthopnea, edema, syncope Gastrointestinal: Denies: abdominal pain, nausea, vomiting, diarrhea Genitourinary: Denies: dysuria, hematuria Musculoskeletal: Denies: back pain Skin: Denies: rash Neurological: Denies: headache, weakness Past Medical History Past Medical History: Coronary Artery Disease (CAD), Chest Pain / Angina, Diabetes Mellitus, Eye Disorder, GERD/Reflux, Hearing Disorder / Deafness, Hyperlipidemia, Hypertension, Myocardial Infarction (NM), Myocardial Infarction (non Q-wave), Osteoarthritis (OA), Thyroid Disorder, Vascular Disorder Additional Past Medical History / Comment(s): Peripheral Arterial Disease. Glaucoma, has left eye stent. Bilateral hearing aids. slightly sob at times follows with pulminologist Last Myocardial Infarction Date:: 2001 History of Any Multi-Drug Resistant Organisms: None Reported Past Surgical History: Adenoidectomy, Coronary Bypass/CABG, Heart Catheterization, Heart Catheterization With Stent, Tonsillectomy, Tubal Ligation Additional Past Surgical History / Comment(s): Triple bypass in 2019 EXP. LAP 02/2012, STENT TO HEART X1, INFRA RENAL AORTIC STENT, STENTS TO BILATERAL LEGS, AORTOGRAM WITH RUNOFF, bilateral cataracts removed, stent to left eye. Past Anesthesia/Blood Transfusion Reactions: No Reported Reaction Additional Past Anesthesia/Blood Transfusion Reaction / Comment(s): Has never had a blood transfusion. Date of Last Stent Placement:: 2001 Past Psychological History: No Psychological Hx Reported Smoking Status: Former smoker Past Alcohol Use History: Rare Past Drug Use History: None Reported - Past Family History Mother Family Medical History: Dementia Additional Family Medical History / Comment(s): HEART PROBLEMS. Father Family Medical History: Coronary Artery Disease (CAD), Myocardial Infarction (NM) Additional Family Medical History / Comment(s): Her father at age 79 with a myocardial infarction. General Exam Limitations: no limitations General appearance: alert, in no apparent distress Head exam: Present: atraumatic, normocephalic Eye exam: Present: normal appearance. Absent: scleral icterus, conjunctival injection Neck exam: Present: normal inspection Respiratory exam: Present: normal lung sounds bilaterally. Absent: respiratory distress, wheezes, rales, rhonchi, stridor Cardiovascular Exam: Present: regular rate, normal rhythm, normal heart sounds. Absent: systolic murmur, diastolic murmur, rubs, gallop GI/Abdominal exam: Present: soft. Absent: distended, tenderness, guarding, rebound, rigid, mass Extremities exam: Present: normal inspection, normal capillary refill. Absent: pedal edema, calf tenderness Back exam: Present: normal inspection. Absent: CVA tenderness (R), CVA tenderness (L) Neurological exam: Present: alert Skin exam: Present: warm, dry, intact, normal color. Absent: rash Course Vital Signs 05/28/24 05/28/24 05/28/24 03:43 06:29 09:22 Temperature 97.9 F Pulse Rate 82 77 86 Respiratory 18 18 18 Rate Blood Pressure 164/67 145/54 158/59 O2 Sat by Pulse 97 98 98 Oximetry Chest Pain MDM - MDM The patient had chest x-ray that I interpreted as negative for acute infiltrate, pneumothorax, congestive heart failure The patient had CT scan of the chest that I interpreted as negative for acute pulmonary embolism. Was pt. sent in by a medical professional or institution (, PA, INVESTIGATION MANAGER, urgent care, hospital, or half-way...) When possible be specific @ -[No] Did you speak to anyone other than the patient for history (EMS, parent, family, police, friend...)? What history was obtained from this source @ -[No] Did you review nursing and triage notes (agree or disagree)? Why? @ -[I reviewed and agree with nursing and triage notes] Were old charts reviewed (outside hosp., previous admission, EMS record, old EKG, old radiological studies, urgent care reports/EKG's, half-way records)? Report findings @ -[No old charts were reviewed] Differential Diagnosis (chest pain, altered mental status, abdominal pain women, abdominal pain men, vaginal bleeding, weakness, fever, dyspnea, syncope, headache, dizziness, GI bleed, back pain, seizure, CVA, palpatations, mental health, musculoskeletal)? @ -[Differential Chest Pain: Stable Angina, Unstable Angina, STEMI, NSTEMI Aortic Dissection, Pneumothorax, Musculoskeletal, Esophageal Spasm GERD, Cholecystitis, Pancreatitis, Zoster, this is not meant to be an all-inclusive list. EKG interpreted by me (3pts min.). @ -[I interpreted as above] X-rays interpreted by me (1pt min.). @ -[I interpreted as above CT interpreted by me (1pt min.). @ -[I interpreted as above U/S interpreted by me (1pt. min.). @ -[None done] What testing was considered but not performed or refused? (CT, X-rays, U/S, labs)? Why? @ -[None] What meds were considered but not given or refused? Why? @ -[None] Did you discuss the management of the patient with other professionals (professionals i.e. , PA, INVESTIGATION MANAGER, lab, RT, psych nurse, director of social media marketing, stock roller, teacher, security control room officer, case filler)? Give summary @ -[Case discussed with admitting physician and treatment recommendations incorporated Was smoking cessation discussed for >3mins.? @ -[No] Was critical care preformed (if so, how long)? @ -[Yes, 30 minutes Were there social determinants of health that impacted care today? How? (Homel essness, low income, unemployed, alcoholism, drug addiction, transportation, low edu. Level, literacy, decrease access to med. care, [facility], rehab)? @ -[No] Was there de-escalation of care discussed even if they declined (Discuss DNR or withdrawal of care, Hospice)? DNR status @ -[No] What co-morbidities impacted this encounter? (DM, HTN, Smoking, COPD, CAD, Cancer, CVA, ARF, Chemo, Hep., AIDS, mental health diagnosis, sleep apnea, morbid obesity)? @ -[Hypertension. Coronary artery disease Was patient admitted / discharged? Hospital course, mention meds given and route, prescriptions, significant lab abnormalities, going to OR and other pertinent info. @ -[This patient is 78-year-old woman presenting with chest pain. The patient did have minimally elevated troponin and will be admitted to have further workup of acute coronary syndrome. Undiagnosed new problem with uncertain prognosis? @ -[No] Drug Therapy requiring intensive monitoring for toxicity (Heparin, Nitro, Insulin, Cardizem)? @ -[IV heparin Were any procedures done? @ -[No] Diagnosis/symptom? @ -[Acute chest pain Acute coronary syndrome Acute, or Chronic, or Acute on Chronic? @ -[Acute Uncomplicated (without systemic symptoms) or Complicated (systemic symptoms)? @ -[Uncomplicated Side effects of treatment? @ -[No] Exacerbation, Progression, or Severe Exacerbation? @ -[No] Poses a threat to life or bodily function? How? (Chest pain, [place], NM, pneumonia, PE, COPD, DKA, ARF, appy, cholecystitis, CVA, Diverticulitis, Homicidal, Suicidal, threat to staff... and all critical care pts) @ -[Yes Disposition Clinical Impression: Chest pain Disposition: ADMITTED IP TO THIS HOSP Is patient prescribed a controlled substance at d/c from ED?: No
[2024-05-28 04:29] LABS: Anisocytosis Slight; Basophils % (A) 1 %; Eosinophils # (A) 0.3 k/uL (0-0.7); Eosinophils % (A) 4 %; HCT 32.9 % (34.0-46.0); HGB 10.2 gm/dL (11.4-16.0); Hypochromasia Marked; Lymphocytes # (A) 1.7 k/uL (1.0-4.8); Lymphocytes % (A) 23 %; MCH 22.8 pg (25.0-35.0); MCHC 30.9 g/dL (31.0-37.0); MCV 73.8 fL (80.0-100.0); Microcytosis Moderate; Monocytes # (A) 0.3 k/uL (0-1.0); Monocytes % (A) 5 %; Neutrophils # (A) 4.6 k/uL (1.3-7.7); Neutrophils % (A) 65 %; Platelet Count 232 k/uL (150-450); RBC 4.46 m/uL (3.80-5.40); RDW 16.8 % (11.5-15.5); WBC 7.1 k/uL (3.8-10.6)
[2024-05-28 04:35] LABS: Potassium 4.2 mmol/L (3.5-5.1)
[2024-05-28 04:38] LABS: AST 22 U/L (14-36); African American GFR (CKD) 47 (>60 ml/min/1.73 sqM); Albumin 3.5 g/dL (3.5-5.0); Alkaline Phosphatase 106 U/L (38-126); Blood Urea Nitrogen 26 mg/dL (7-17); Calcium 9.4 mg/dL (8.4-10.2); Carbon Dioxide 20 mmol/L (22-30); Chloride 106 mmol/L (98-107); Glucose 276 mg/dL (74-99); Non-African American GFR(CKD) 41 (>60 ml/min/1.73 sqM); Total Bilirubin 0.4 mg/dL (0.2-1.3); Total Protein 6.3 g/dL (6.3-8.2)
[2024-05-28 04:39] LABS: ALT 12 U/L (4-34); Anion Gap 11 mmol/L; Magnesium 1.7 mg/dL (1.6-2.3); Sodium 137 mmol/L (137-145)
--- NOTE | 2024-05-28 04:41 | XR ---
EXAMINATION TYPE: XR chest 2V DATE OF EXAM: 05/28/2024 COMPARISON: Chest x-ray January 08, 2024 HISTORY: Chest pain TECHNIQUE: Frontal and lateral views of the chest are obtained. FINDINGS: There is chronic parenchymal changes bilaterally without suspicious focal air space opacit y, pleural effusion, or pneumothorax seen. The cardiac silhouette size is stable and upper limits of normal. Overlying sternal wires and mediastinal clips are redemonstrated. The osseous structures ar e demineralized. IMPRESSION: Chronic parenchymal changes without acute pulmonary process. No significant change from prior.
[2024-05-28 04:49] LABS: INR 0.9 (<1.2); Prothrombin Time 9.9 sec (10.0-12.5)
[2024-05-28 05:24] LABS: Partial Thromboplastin Time 21.3 sec (22.0-30.0)
[2024-05-28] MEDS ORDERED: NITROGLYCERIN SL TABS 0.4 MG TAB SUBLINGUAL PRN (07:25)
--- NOTE | 2024-05-28 07:34 | CT ---
CTA CHEST EXAMINATION TYPE: CT chest angio for PE DATE OF EXAM: 05/28/2024 INDICATION: SOB CT DLP: 278.6 mGycm, Automated exposure control for dose reduction was used. CONTRAST: Patient injected with 60 mL of Isovue 370. COMPARISON: 10/12/2023 TECHNIQUE: CT of the chest is performed on a spiral scan at 2 mm thick sections. Study is performed with intravenous contrast timed for evaluation for pulmonary embolism. This will limit additional po rtions of the evaluation. 3-D MIP images reconstructed by the technologist are reviewed on the compu ter in the coronal and sagittal planes. FINDINGS: No persistent filling defects are evident to suggest an acute pulmonary embolism. No mediastinal or hilar adenopathy enlarged by CT criteria is evident. The ascending aorta diameter at the level of the main pulmonary artery is 3.2 cm. The main pulmonary artery diameter at the bifurcation is 2.3 cm. Small bilateral pleural effusions are present. There are scattered changes in lower lung gardiner great er on the right. These are nonspecific. Correlate for atelectasis and infectious etiologies. Limited CT sections were through the upper abdomen. Cholelithiasis is present. Dense calcification m ay narrow the aorta at the renal artery origins. This was present September 2023. Consider additional w orkup for stenosis. IMPRESSION: 1. No acute pulmonary embolism. 2. Small bilateral pleural effusions. 3. Scattered nonspecific infiltrates. Correlate for infectious etiology. 4. There is severe narrowing of the abdominal aorta at the renal artery level. This appears to be pr esent previously.
[2024-05-28] MEDS: HEPARIN SOD,PORK IN 0.45% NACL 25,000 UNIT in 0.45% NACL 1 250ML.BAG IV SCH (08:42)
[2024-05-28] MEDS: HEPARIN SODIUM 1,000 UN/ML (10ML VL) IV ONE (08:42)
--- NOTE | 2024-05-28 08:44 | P.CRDCN ---
History of Present Illness Consult date: 05/28/24 Consult reason: chest pain History of present illness: This is a 78-year-old female patient of Dr. Jeffries with past medical history of coronary artery disease status post CABG with HURT to LAD, S VG to left circumflex and SVG to RCA, known intermediate disease involving the distal anastomosis of S VG to RCA, peripheral artery disease status post bilateral iliac stenting and bilateral SFA angioplasty as well as valvular heart disease, hypertension, dyslipidemia. We have been asked to evaluate the patient for chest pain. Wednesday night started getting heartburn and took a couple tums and went to bed. She woke up and still had the discomfort and took more tums. Tried again to rest and was still having the pain and decided to come in. Pain is gone now and releived with NTG SL x3, #7 down to #3. Pain lasted for about 2 hours and is now gone. Wednesday night had similar symptoms but not as bad. Also had some shortness of breath. Pain is in the midsternal area. Blood pressure 145/54, heart rate 77, pulse ox 98% on room air. Patient has been started on a heparin drip. Discussed option of cardiac catheterization. EKG: Sinus rhythm, left bundle branch block Chest x-ray: Chronic parenchymal changes without acute pulmonary process. CTA of the chest showed no acute pulmonary embolism. Small bilateral pleural effusions. Scattered nonspecific infiltrates correlate for infectious etiology. Narrowing of the abdominal aorta at the renal artery level appears to be present previously. Laboratory studies: WBC 7.1, hemoglobin 10.2, platelet count 232. D-dimer 1.56. BUN 26, creatinine 1.25, potassium 4.2. Troponin 0.045. Home cardiac medications according to office note dated February 10, 2024: Aspirin 81 mg daily, Jardiance 25 mg daily, Lasix 20 mg daily as needed, lisinopril 5 mg daily, lovastatin 20 mg daily, metoprolol tartrate 100 mg twice daily, Plavix 75 mg daily, potassium chloride 8 mEq daily, Zetia 10 mg daily, patient also on levothyroxine 112 mcg daily: Echocardiogram performed 12/14/2022 revealed EF 55 to 60%, aortic sclerosis with no significant stenosis, mild mitral and tricuspid regurgitation. Lexiscan stress test performed 12/14/2022 revealed cannot exclude small area of stress-induced reversibility involving the anterior lateral myocardium. Most recent cardiac catheterization was performed on 12/16/2022 which revealed severe triple-vessel coronary artery disease, patent HURT to LAD, patent SVG to left circumflex. Patent SVG to RCA with a distal anastomosis of the SVG has a lesion appears to be in the range of 60 to 70%. 12/02/2028 coronary artery bypass grafting with 3 vessels HURT to LAD, SVG to obtuse marginal, SVG to the distal right coronary artery. Review Of Systems: At the time of my exam: CONSTITUTIONAL: Denies fever or chills. HEENT: Denies blurred vision, vision changes, or eye pain. Denies hemoptysis CARDIOVASCULAR: Denies chest pain. Denies orthopnea. Denies PND. Denies palpitations RESPIRATORY: Denies shortness of breath. GASTROINTESTINAL: Denies abdominal pain. Denies nausea or vomiting. HEMATOLOGIC: Denies bleeding disorders. GENITOURINARY: Denies any blood in urine. SKIN: Denies puritis. Denies rash. Physical examination: Gen: This is a 78-year-old female in no acute distress. VS: reviewed HEENT: Head is atraumatic, normocephalic. Pupils equal, round. Sclerae is anicteric. NECK: Supple. No JVD. LUNGS: Diminished. No wheezes or rhonchi. No intercostal retractions. HEART: Regular rate and rhythm. Systolic murmur. ABDOMEN: Soft No tenderness. EXTREMITIES: Edema bilat lower extemities, Left > right. No calf tenderness. NEUROLOGICAL: Patient is awake, alert and oriented x3. Assessment: Chest pain Acute kidney injury History of coronary artery disease status post CABG with HURT to LAD, S VG to left circumflex and SVG to RCA, known intermediate disease involving the distal anastomosis of SVG to RCA Peripheral artery disease status post bilateral iliac stenting and bilateral SFA angioplasty Valvular heart disease Hypertension Dyslipidemia. Plan: Resume patient's home cardiac medications Continue heparin gtt Repeat troponins Obtain 2-D echocardiogram and Doppler study to assess cardiac structure and function Most likely LHC between and Wednesday depending on the results of testing and patient's symptoms. Further recommendations to follow based upon clinical course Thank you kindly for this consultation. Nurse practitioner note has been reviewed, I agree with documented findings and plan of care. Patient was seen and examined. Past Medical History Past Medical History: Coronary Artery Disease (CAD), Chest Pain / Angina, Diabetes Mellitus, Eye Disorder, GERD/Reflux, Hearing Disorder / Deafness, Hyperlipidemia, Hypertension, Myocardial Infarction (VT), Myocardial Infarction (non Q-wave), Osteoarthritis (OA), Thyroid Disorder, Vascular Disorder Additional Past Medical History / Comment(s): Peripheral Arterial Disease. Glaucoma, has left eye stent. Bilateral hearing aids. slightly sob at times follows with pulminologist Last Myocardial Infarction Date:: 2001 History of Any Multi-Drug Resistant Organisms: None Reported Past Surgical History: Adenoidectomy, Coronary Bypass/CABG, Heart Catheteriza tion, Heart Catheterization With Stent, Tonsillectomy, Tubal Ligation Additional Past Surgical History / Comment(s): Triple bypass in 2019 EXP. LAP 02/2012, STENT TO HEART X1, INFRA RENAL AORTIC STENT, STENTS TO BILATERAL LEGS, AORTOGRAM WITH RUNOFF, bilateral cataracts removed, stent to left eye. Past Anesthesia/Blood Transfusion Reactions: No Reported Reaction Additional Past Anesthesia/Blood Transfusion Reaction / Comment(s): Has never had a blood transfusion. Date of Last Stent Placement:: 2001 Past Psychological History: No Psychological Hx Reported Smoking Status: Former smoker Past Alcohol Use History: Rare Past Drug Use History: None Reported - Past Family History Mother Family Medical History: Dementia Additional Family Medical History / Comment(s): HEART PROBLEMS. Father Family Medical History: Coronary Artery Disease (CAD), Myocardial Infarction (VT) Additional Family Medical History / Comment(s): Her father at age 79 with a myocardial infarction. Medications and Allergies Home Medications Medication Instructions Recorded Confirmed Type Ergocalciferol [Vitamin D2 1,250 mcg PO Q14D 01/31/14 05/28/24 History (DRISDOL)] Ezetimibe [Zetia] 10 mg PO DAILY 01/31/14 05/28/24 History Clopidogrel [Plavix] 75 mg PO DAILY #30 tab 12/06/18 05/28/24 Rx Empagliflozin [Jardiance] 25 mg PO DAILY 11/13/19 05/28/24 History Levothyroxine Sodium [Synthroid] 112 mcg PO AC-BRKFST 11/13/19 05/28/24 History Metoprolol Tartrate [Lopressor] 100 mg PO BID-W/MEALS 11/13/19 05/28/24 History Cyanocobalamin (Vitamin B-12) 1,000 mcg PO DAILY 12/12/22 05/28/24 History [Vitamin B-12] Famotidine [Pepcid] 40 mg PO HS 12/12/22 05/28/24 History Liraglutide [Victoza 3-Luiz] 1.8 mg SQ DAILY 12/12/22 05/28/24 History Potassium Chloride [Klor-Con 8] 8 meq PO DAILY 12/12/22 05/28/24 History Repaglinide [Prandin] 1 mg PO AC-BID 12/12/22 05/28/24 History Aspirin 81 mg PO DAILY tab 12/16/22 05/28/24 Rx Pantoprazole Sodium 40 mg PO AC-BRKFST 01/01/23 05/28/24 History Lovastatin [Mevacor] 20 mg PO HS 05/28/24 05/28/24 History lisinopriL [Zestril] 5 mg PO DAILY 05/28/24 05/28/24 History metFORMIN HCL ER [Glucophage XR] 500 mg PO DAILY 05/28/24 05/28/24 History Allergies Allergy/AdvReac Type Severity Reaction Status Date / Time hydromorphone HCl AdvReac RESPIRATORY Verified 05/28/24 08:27 [From Dilaudid] DEPRESSION Physical Exam Vitals: Vital Signs Temp Pulse Resp BP Pulse Ox 05/28/24 06:29 77 18 145/54 98 05/28/24 03:43 97.9 F 82 18 164/67 97 Intake and Output 05/27/24 05/28/24 05/28/24 22:59 06:59 14:59 Other: Weight 72.575 kg Results 05/28/24 04:18 05/28/24 04:18 Cardiac Enzymes 05/28/24 05/28/24 Range/Units 04:18 04:18 AST 22 (14-36) U/L Troponin I 0.045 H* (0.000-0.034) ng/mL Coagulation 05/28/24 Range/Units 04:18 PT 9.9 L (10.0-12.5) sec APTT 21.3 L (22.0-30.0) sec CBC 05/28/24 Range/Units 04:18 WBC 7.1 (3.8-10.6) k/uL RBC 4.46 (3.80-5.40) m/uL Hgb 10.2 L (11.4-16.0) gm/dL Hct 32.9 L (34.0-46.0) % Plt Count 232 (150-450) k/uL Comprehensive Metabolic Panel 05/28/24 Range/Units 04:18 Sodium 137 (137-145) mmol/L Potassium 4.2 (3.5-5.1) mmol/L Chloride 106 (98-107) mmol/L Carbon Dioxide 20 L (22-30) mmol/L BUN 26 H (7-17) mg/dL Creatinine 1.25 H (0.52-1.04) mg/dL Glucose 276 H (74-99) mg/dL Calcium 9.4 (8.4-10.2) mg/dL AST 22 (14-36) U/L ALT 12 (4-34) U/L Alkaline Phosphatase 106 (38-126) U/L Total Protein 6.3 (6.3-8.2) g/dL Albumin 3.5 (3.5-5.0) g/dL Current Medications Generic Name Dose Route Start Last Admin Trade Name Freq PRN Reason Stop Dose Admin Aspirin 325 mg 05/29/24 09:00 Aspirin 325 Mg Tab PO DAILY [facility] Heparin Sodium/Sodium Chloride 250 mls @ 8.709 mls/hr 05/28/24 07:30 25,000 unit/ Sodium Chloride IV .Q24H [facility] Protocol 12 UNITS/KG/HR Nitroglycerin 0.4 mg 05/28/24 07:25 Nitroglycerin Sl Tabs 0.4 Mg Tab SUBLINGUAL Q5M PRN Chest Pain Intake and Output 05/27/24 05/28/24 05/28/24 22:59 06:59 14:59 Other: Weight 72.575 kg 05/28/24 04:18 05/28/24 04:18
[2024-05-28] MEDS: CLOPIDOGREL 75 MG TAB PO SCH (09:20)
[2024-05-28] MEDS: METOPROLOL TARTRATE 50 MG TAB PO SCH (09:20)
[2024-05-28] MEDS: EZETIMIBE 10 MG TAB PO SCH (09:20)
[2024-05-28] MEDS ORDERED: DEXTROSE 50% SYRINGE 50 ML IVP PRN ×2 (10:51)
[2024-05-28 11:36] LABS: Glucose,Whole Blood 239 mg/dL (70-110)
[2024-05-28] MEDS: NON FORMULARY DRUG (Liraglutide [Victoza 3-Pak] 0.6 MG/0.1 ML Ml) SQ SCH (11:48)
[2024-05-28] MEDS: DAPAGLIFLOZIN PROPANEDIOL 10 MG TABLET PO SCH (11:49)
[2024-05-28] MEDS: metFORMIN 500 MG TAB PO SCH (11:49)
[2024-05-28] MEDS: CYANOCOBALAMIN 500 MCG TAB PO SCH (11:49)
[2024-05-28] MEDS: lisinopriL 5 MG TAB PO SCH (11:52)
[2024-05-28] MEDS: INSULIN ASPART (NovoLOG) 100 UNIT/ML VIAL SQ SCH (11:53)
[2024-05-28] MEDS: REPAGLINIDE 1 MG TAB PO SCH (13:20)
--- NOTE | 2024-05-28 16:20 | P.HPIM ---
History of Present Illness H&P Date: 05/28/24 Chief Complaint: Chest burning This is a pleasant 78-year-old patient follows with Dr. Karley Winslow. Neurologist-Dr. Jeffries Chronic stable medical conditions include CAD with stent, PAD with peripheral stents, diabetes, hypertension, hyperlipidemia, osteoarthritis,. Around midnight midnight patient woke up with some reflux chest burning. Took some Tums felt better. Around 1 AM again she developed the same symptoms. That Persisting. [place] rather tired. Did not radiate anywhere. Symptoms lasted for good 2 hours. Finally decided to come to the hospital. Some troponin bump. On IV heparin. Review of systems: GEN.: Tired EYES: None HEENT: None NECK: None RESPIRATORY: None CARDIOVASCULAR: As above GASTROINTESTINAL: None GENITOURINARY: None MUSCULOSKELETAL: Joint pains LYMPHATICS: None HEMATOLOGICAL: None PSYCHIATRY: None NEUROLOGICAL: None Past medical history to include: CAD with stent, diabetes, hypertension, hyperlipidemia, osteoporosis, hypothy roid, PAD with stent Social history: Alcohol occasionally. Lives with her . Smoked for 40 years 2 packs a day stopped in 2003 Physical examination: VITAL SIGNS: 1.9, 86, 18, 158 x 59, 98% room air GENERAL: comfortable EYES: Pupils equal. Conjunctiva normal. HEENT: External appearance of nose and ears normal, oral cavity grossly normal. NECK: JVD not raised; masses not palpable. HEART: First and second heart sounds are normal; no edema. LUNGS: Respiratory rate normal; decreased breath sounds. ABDOMEN: Soft, nontender, liver spleen not palpable, no masses palpable. PSYCH: Alert and oriented x3; mood and affect normal. MUSCULOSKELETAL:No Clubbing/cyanosis;muscles-grossly intact. OA NEUROLOGICAL: Cranial nerves grossly intact; no facial asymmetry, power and sensation grossly intact. LYMPHATICS: No lymph nodes palpable in the axilla and neck INVESTIGATIONS, reviewed in the clinical context: May 28, 2024: White count 7.1 hemoglobin 10.2 platelets 232 sodium 137 potassium 4.2 BUN 26 creatinine 1.25 Troponin I 0.045, 0.266, 0.301 EKG tracing personally reviewed by me-normal sinus rhythm. Left bundle bessie block. ST-T wave changes. Chest CTA: Nonspecific infiltrates. Chest x-ray film personally reviewed by me-some cardiomegaly and hyperinflation Assessment and plan: -Acute non-ST elevation [place] in a patient with known prior CAD Cardiology following. Will need cardiac catheterization. Aspirin. Plavix. Lipitor. Lopressor. IV heparin -IV heparin monitoring Follow PTT -Interstitial lung disease. -COPD no previous smoker Albuterol when necessary -CAD with prior history of stent Aspirin. Plavix. -PAD with prior intervention Aspirin, Plavix, Zetia -Diabetes mellitus type 2, on oral hypoglycemic Jardiance, metformin, and Victoza, Prandin. Follow Accu-Cheks and sliding scale -Primary osteoarthritis Tylenol when necessary -Evaluate for chronic kidney disease Patient's creatinine was 0.81 and December 2023. Renal ultrasound. UA. -Hyperlipidemia Lipitor -Hypothyroid Synthroid -Essential hypertension Lisinopril, Lopressor -Full code Discussed with patient. Cardiac catheterization per cardiology. Repeat BMP in the morning Past Medical History Past Medical History: Coronary Artery Disease (CAD), Chest Pain / Angina, Diabetes Mellitus, Eye Disorder, GERD/Reflux, Hearing Disorder / Deafness, Hyperlipidemia, Hypertension, Myocardial Infarction ([place]), Myocardial Infarction (non Q-wave), Osteoarthritis (OA), Thyroid Disorder, Vascular Disorder Additional Past Medical History / Comment(s): Peripheral Arterial Disease. Glaucoma, has left eye stent. Bilateral hearing aids. slightly sob at times follows with pulminologist Last Myocardial Infarction Date:: 2001 History of Any Multi-Drug Resistant Organisms: None Reported Past Surgical History: Adenoidectomy, Coronary Bypass/CABG, Heart Catheterization, Heart Catheterization With Stent, Tonsillectomy, Tubal Ligation Additional Past Surgical History / Comment(s): Triple bypass in 2019 EXP. LAP 02/2012, STENT TO HEART X1, INFRA RENAL AORTIC STENT, STENTS TO BILATERAL LEGS, AORTOGRAM WITH RUNOFF, bilateral cataracts removed, stent to left eye. Past Anesthesia/Blood Transfusion Reactions: No Reported Reaction Additional Past Anesthesia/Blood Transfusion Reaction / Comment(s): Has never had a blood transfusion. Date of Last Stent Placement:: 2001 Past Psychological History: No Psychological Hx Reported Smoking Status: Former smoker Past Alcohol Use History: Rare Additional Past Alcohol Use History / Comment(s): STARTED SMOKING AT AGE 28 (1964), QUIT IN 2003, SMOKED 2PPD. Past Drug Use History: None Reported - Past Family History Mother Family Medical History: Dementia Additional Family Medical History / Comment(s): HEART PROBLEMS. Father Family Medical History: Coronary Artery Disease (CAD), Myocardial Infarction ([place]) Additional Family Medical History / Comment(s): Her father at age 79 with a myocardial infarction. Medications and Allergies Home Medications Medication Instructions Recorded Confirmed Type Ergocalciferol [Vitamin D2 1,250 mcg PO Q14D 01/31/14 05/28/24 History (DRISDOL)] Ezetimibe [Zetia] 10 mg PO DAILY 01/31/14 05/28/24 History Clopidogrel [Plavix] 75 mg PO DAILY #30 tab 12/06/18 05/28/24 Rx Empagliflozin [Jardiance] 25 mg PO DAILY 11/13/19 05/28/24 History Levothyroxine Sodium [Synthroid] 112 mcg PO AC-BRKFST 11/13/19 05/28/24 History Metoprolol Tartrate [Lopressor] 100 mg PO BID-W/MEALS 11/13/19 05/28/24 History Cyanocobalamin (Vitamin B-12) 1,000 mcg PO DAILY 12/12/22 05/28/24 History [Vitamin B-12] Famotidine [Pepcid] 40 mg PO HS 12/12/22 05/28/24 History Liraglutide [Victoza 3-Luiz] 1.8 mg SQ DAILY 12/12/22 05/28/24 History Potassium Chloride [Klor-Con 8] 8 meq PO DAILY 12/12/22 05/28/24 History Repaglinide [Prandin] 1 mg PO AC-BID 12/12/22 05/28/24 History Aspirin 81 mg PO DAILY tab 12/16/22 05/28/24 Rx Pantoprazole Sodium 40 mg PO AC-BRKFST 01/01/23 05/28/24 History Lovastatin [Mevacor] 20 mg PO HS 05/28/24 05/28/24 History lisinopriL [Zestril] 5 mg PO DAILY 05/28/24 05/28/24 History metFORMIN HCL ER [Glucophage XR] 500 mg PO DAILY 05/28/24 05/28/24 History Allergies Allergy/AdvReac Type Severity Reaction Status Date / Time hydromorphone HCl AdvReac RESPIRATORY Verified 05/28/24 08:27 [From Dilaudid] DEPRESSION Physical Exam Vitals: Vital Signs Temp Pulse Pulse Resp BP BP Pulse Ox 05/28/24 10:39 80 18 05/28/24 10:05 80 18 155/74 100 05/28/24 10:01 80 18 155/74 100 05/28/24 09:22 86 18 158/59 98 05/28/24 06:29 77 18 145/54 98 05/28/24 03:43 97.9 F 82 18 164/67 97 Intake and Output 05/27/24 05/28/24 05/28/24 22:59 06:59 14:59 Other: Weight 72.575 kg 72.575 kg Results CBC & Chem 7: 05/28/24 04:18 05/28/24 04:18 Labs: Abnormal Lab Results - Last 24 Hours (Table) 05/28/24 05/28/24 05/28/24 Range/Units 04:18 04:18 04:18 Hgb 10.2 L (11.4-16.0) gm/dL Hct 32.9 L (34.0-46.0) % MCV 73.8 L (80.0-100.0) fL MCH 22.8 L (25.0-35.0) pg MCHC 30.9 L (31.0-37.0) g/dL RDW 16.8 H (11.5-15.5) % PT 9.9 L (10.0-12.5) sec APTT 21.3 L (22.0-30.0) sec D-Dimer 1.56 H (<0.60) mg/L FEU Carbon Dioxide 20 L (22-30) mmol/L BUN 26 H (7-17) mg/dL Creatinine 1.25 H (0.52-1.04) mg/dL Glucose 276 H (74-99) mg/dL POC Glucose (mg/dL) (70-110) mg/dL Troponin I (0.000-0.034) ng/mL 05/28/24 05/28/24 05/28/24 Range/Units 04:18 08:34 11:34 Hgb (11.4-16.0) gm/dL Hct (34.0-46.0) % MCV (80.0-100.0) fL MCH (25.0-35.0) pg MCHC (31.0-37.0) g/dL RDW (11.5-15.5) % PT (10.0-12.5) sec APTT (22.0-30.0) sec D-Dimer (<0.60) mg/L FEU Carbon Dioxide (22-30) mmol/L BUN (7-17) mg/dL Creatinine (0.52-1.04) mg/dL Glucose (74-99) mg/dL POC Glucose (mg/dL) 239 H (70-110) mg/dL Troponin I 0.045 H* 0.266 H* (0.000-0.034) ng/mL Thrombosis Risk Factor Assmnt - Choose All That Apply Each Factor Represents 1 point: Obesity (BMI >25) Each Risk Factor Represents 3 Points: Age 75 years or older Thrombosis Risk Factor Assessment Total Risk Factor Score: 4 Thrombosis Risk Factor Assessment Level: Moderate Risk
[2024-05-28 16:50] LABS: Glucose,Whole Blood 132 mg/dL (70-110)
[2024-05-28 17:59] LABS: Appearance,Urine Cloudy (Clear); Bacteria,Urine Moderate /hpf; Bilirubin,Urine Negative (Negative); Blood,Urine Small (Negative); Color,Urine Colorless; Glucose,Urine (UA) 4+ (Negative); Ketones,Urine Negative (Negative); Leukocyte Esterase,Urine Large (Negative); Nitrite,Urine Negative (Negative); PH, Urine 5.5 (5.0-8.0); Protein,Urine Negative (Negative); RBC,Urine 8 /hpf (0-5); Specific Gravity,Urine 1.014 (1.001-1.035); Squamous Epithelial Cell,Urine 1 /hpf (0-4); Urobilinogen,Urine <2.0 mg/dL (<2.0); WBC,Urine >182 /hpf (0-5)
[2024-05-28] MEDS: SODIUM CHLORIDE 0.9% 1,000 ML IV SCH (18:25)
--- NOTE | 2024-05-28 19:12 | US ---
EXAMINATION TYPE: US kidneys/renal and bladder DATE OF EXAM: 05/28/2024 COMPARISON: NONE CLINICAL INDICATION: Female, 78 years old with history of Assess for CKD; CKD EXAM MEASUREMENTS: Right Kidney: 9.1 x 4.9 x 4.3 cm Left Kidney: 9.0 x 3.6 x 4.3 cm Right Kidney: No hydronephrosis or masses seen Left Kidney: No hydronephrosis or masses seen Bladder: wnl Bilateral Jets seen: Yes There is no evidence for hydronephrosis at this point in time. No nephrolithiasis is seen. No nishi s are identified. The urinary bladder is anechoic. Bilateral ureteral jets are seen. Cortical medul ayaka differentiation is maintained bilaterally. IMPRESSION: No evidence for obstructive uropathy or renal calculus.
[2024-05-28 20:12] LABS: Glucose,Whole Blood 113 mg/dL (70-110)
[2024-05-28] MEDS ORDERED: ATORVASTATIN 20 MG TAB PO SCH (21:00)
[2024-05-28] MEDS ORDERED: NON FORMULARY DRUG (Lovastatin 20 MG Tab) PO SCH (21:00)
[2024-05-28] MEDS ORDERED: FAMOTIDINE 20 MG TAB PO SCH (21:00)
[2024-05-28] MEDS: FAMOTIDINE 20 MG TAB PO SCH (21:25)
[2024-05-28] MEDS: ATORVASTATIN 40 MG TAB PO SCH (21:25)
[2024-05-29 05:52] LABS: Glucose,Whole Blood 175 mg/dL (70-110)
[2024-05-29] MEDS: LEVOTHYROXINE 112 MCG TAB PO SCH (06:49)
[2024-05-29] MEDS: PANTOPRAZOLE 40 MG TABLET PO SCH (06:49)
[2024-05-29 08:06] LABS: Mean Platelet Volume 7.5; Platelet Count 232 k/uL (150-450)
[2024-05-29] MEDS: ASPIRIN 81 MG PO SCH (08:45)
[2024-05-29] MEDS ORDERED: ASPIRIN 325 MG TAB PO SCH (09:00)
[2024-05-29 09:02] LABS: African American GFR (CKD) 57 (>60 ml/min/1.73 sqM); Anion Gap 6 mmol/L; Blood Urea Nitrogen 18 mg/dL (7-17); Calcium 8.9 mg/dL (8.4-10.2); Carbon Dioxide 23 mmol/L (22-30); Chloride 109 mmol/L (98-107); Glucose 152 mg/dL (74-99); Non-African American GFR(CKD) 50 (>60 ml/min/1.73 sqM); Potassium 3.9 mmol/L (3.5-5.1); Sodium 138 mmol/L (137-145)
[2024-05-29 11:49] LABS: Glucose,Whole Blood 133 mg/dL (70-110)
[2024-05-29] MEDS ORDERED: ALPRAZolam 0.5 MG TAB PO PRN (12:49)
[2024-05-29] MEDS ORDERED: ALPRAZolam 0.25 MG TAB PO PRN (12:49)
[2024-05-29] MEDS ORDERED: NITROGLYCERIN SL TABS 0.4 MG TAB SUBLINGUAL PRN (12:49)
--- NOTE | 2024-05-29 12:56 | P.PN ---
Subjective Progress Note Date: 05/29/24 History of present illness: This is a 78-year-old female patient of Dr. Jeffries with past medical history of coronary artery disease status post CABG with HURT to LAD, S VG to left ci rcumflex and SVG to RCA, known intermediate disease involving the distal anastomosis of S VG to RCA, peripheral artery disease status post bilateral iliac stenting and bilateral SFA angioplasty as well as valvular heart disease, hypertension, dyslipidemia. We have been asked to evaluate the patient for chest pain. Wednesday night started getting heartburn and took a couple tums and went to bed. She woke up and still had the discomfort and took more tums. Tried again to rest and was still having the pain and decided to come in. Pain is gone now and releived with NTG SL x3, #7 down to #3. Pain lasted for about 2 hours and is now gone. Wednesday night had similar symptoms but not as bad. Also had some shortness of breath. Pain is in the midsternal area. Blood pressure 145/54, heart rate 77, pulse ox 98% on room air. Patient has been started on a heparin drip. Discussed option of cardiac catheterization. EKG: Sinus rhythm, left bundle branch block Chest x-ray: Chronic parenchymal changes without acute pulmonary process. CTA of the chest showed no acute pulmonary embolism. Small bilateral pleural effusions. Scattered nonspecific infiltrates correlate for infectious etiology. Narrowing of the abdominal aorta at the renal artery level appears to be present previously. Laboratory studies: WBC 7.1, hemoglobin 10.2, platelet count 232. D-dimer 1.56. BUN 26, creatinine 1.25, potassium 4.2. Troponin 0.045. Home cardiac medications according to office note dated February 10, 2024: Aspirin 81 mg daily, Jardiance 25 mg daily, Lasix 20 mg daily as needed, lisinopril 5 mg daily, lovastatin 20 mg daily, metoprolol tartrate 100 mg twice daily, Plavix 75 mg daily, potassium chloride 8 mEq daily, Zetia 10 mg daily, patient also on levothyroxine 112 mcg daily: Echocardiogram performed 12/14/2022 revealed EF 55 to 60%, aortic sclerosis with no significant stenosis, mild mitral and tricuspid regurgitation. Lexiscan stress test performed 12/14/2022 revealed cannot exclude small area of stress-induced reversibility involving the anterior lateral myocardium. Most recent cardiac catheterization was performed on 12/16/2022 which revealed severe triple-vessel coronary artery disease, patent HURT to LAD, patent SVG to left circumflex. Patent SVG to RCA with a distal anastomosis of the SVG has a lesion appears to be in the range of 60 to 70%. 12/02/2018 coronary artery bypass grafting with 3 vessels HURT to LAD, SVG to obtuse marginal, SVG to the distal right coronary artery. 05/29/2024 Patient reports that she has not had any further chest pain since yesterday. She has been up to the bathroom and still does feel short of breath with exertion as well as some dizziness. Troponins did trend up from 0.045, 0.266, 0.301. Physical examination: Gen: This is a 78-year-old female in no acute distress. VS: reviewed HEENT: Head is atraumatic, normocephalic. Pupils equal, round. Sclerae is an icteric. NECK: Supple. No JVD. LUNGS: Diminished. No wheezes or rhonchi. No intercostal retractions. HEART: Regular rate and rhythm. Systolic murmur. ABDOMEN: Soft No tenderness. EXTREMITIES: Edema bilat lower extemities, Left > right. No calf tenderness. NEUROLOGICAL: Patient is awake, alert and oriented x3. Assessment: Chest pain Acute kidney injury History of coronary artery disease status post CABG with HURT to LAD, S VG to left circumflex and SVG to RCA, known intermediate disease involving the distal anastomosis of SVG to RCA Peripheral artery disease status post bilateral iliac stenting and bilateral SFA angioplasty Valvular heart disease Hypertension Dyslipidemia. NSTEMI Plan: Continue heparin gtt. Will plan to proceed with left heart catheterization tomorrow given NSTEMI and continued symptoms, to be done with Dr. Arreguin. DC IV fluids. Echocardiogram pending. N.p.o. after midnight. Further recommendations to follow based upon clinical course Nurse practitioner note has been reviewed, I agree with documented findings and plan of care. Patient was seen and examined. Objective - Vital Signs Vital signs: Vital Signs Temp 98.4 F 05/29/24 08:45 Pulse 75 05/29/24 08:45 Resp 17 05/29/24 08:45 BP 160/69 05/29/24 08:45 Pulse Ox 98 05/29/24 08:45 FiO2 Intake & Output 05/28/24 05/29/24 05/29/24 18:59 06:59 18:59 Intake Total 1462 238.772 Balance 1462 238.772 Weight 72.575 kg 71.8 kg Intake: Intake, IV Titration 238.772 Amount Heparin Sod,Pork in 0.45% 238.772 NaCl 25,000 unit In 0.45 % NaCl 1 250ml.bag @ 12 UNITS/KG/HR 8.709 mls/hr IV .Q24H [facility] Rx#: [id number] Oral 1462 Other: Voiding Method Toilet Toilet # Voids 1 1 - Labs CBC & Chem 7: 05/29/24 07:45 05/29/24 07:45 Labs: Abnormal Lab Results - Last 24 Hours (Table) 05/28/24 05/28/24 05/28/24 Range/Units 11:23 14:19 16:48 APTT 44.9 H (22.0-30.0) sec Chloride (98-107) mmol/L BUN (7-17) mg/dL Creatinine (0.52-1.04) mg/dL Glucose (74-99) mg/dL POC Glucose (mg/dL) 132 H (70-110) mg/dL Troponin I 0.301 H* (0.000-0.034) ng/mL Urine Appearance (Clear) Urine Glucose (UA) (Negative) Urine Blood (Negative) Ur Leukocyte Esterase (Negative) Urine RBC (0-5) /hpf Urine WBC (0-5) /hpf Urine WBC Clumps (None) /hpf Urine Bacteria (None) /hpf 05/28/24 05/28/24 05/29/24 Range/Units 17:45 20:11 05:51 APTT (22.0-30.0) sec Chloride (98-107) mmol/L BUN (7-17) mg/dL Creatinine (0.52-1.04) mg/dL Glucose (74-99) mg/dL POC Glucose (mg/dL) 113 H 175 H (70-110) mg/dL Troponin I (0.000-0.034) ng/mL Urine Appearance Cloudy H (Clear) Urine Glucose (UA) 4+ H (Negative) Urine Blood Small H (Negative) Ur Leukocyte Esterase Large H (Negative) Urine RBC 8 H (0-5) /hpf Urine WBC >182 H (0-5) /hpf Urine WBC Clumps Many H (None) /hpf Urine Bacteria Moderate H (None) /hpf 05/29/24 05/29/24 05/29/24 Range/Units 07:45 07:45 11:39 APTT 45.1 H (22.0-30.0) sec Chloride 109 H (98-107) mmol/L BUN 18 H (7-17) mg/dL Creatinine 1.07 H (0.52-1.04) mg/dL Glucose 152 H (74-99) mg/dL POC Glucose (mg/dL) 133 H (70-110) mg/dL Troponin I (0.000-0.034) ng/mL Urine Appearance (Clear) Urine Glucose (UA) (Negative) Urine Blood (Negative) Ur Leukocyte Esterase (Negative) Urine RBC (0-5) /hpf Urine WBC (0-5) /hpf Urine WBC Clumps (None) /hpf Urine Bacteria (None) /hpf
--- NOTE | 2024-05-29 13:56 | P.PN ---
Progress Note - Text Progress Note Date: 05/29/24 Chief Complaint: Chest burning This is a pleasant 78-year-old patient follows with Dr. Karley Winslow. Neurologist-Dr. Jeffries Chronic stable medical conditions include CAD with stent, PAD with peripheral stents, diabetes, hypertension, hyperlipidemia, osteoarthritis,. Around midnight midnight patient woke up with some reflux chest burning. Took some Tums felt better. Around 1 AM again she developed the same symptoms. That Persisting. [place] rather tired. Did not radiate anywhere. Symptoms lasted for good 2 hours. Finally decided to come to the hospital. Some troponin bump. On IV heparin. May 29: Sitting at the window. Comfortable. Minimal short of breath going to the bathroom. Plan for cardiac catheterization tomorrow. Remains on IV heparin. at bedside. Active Medications Alprazolam (Alprazolam 0.25 Mg Tab) 0.25 mg PO Q6HR PRN PRN Reason: Mild Anxiety Alprazolam (Alprazolam 0.5 Mg Tab) 0.5 mg PO Q6HR PRN PRN Reason: Moderate Anxiety Aspirin (Aspirin 325 Mg Tab) 325 mg PO ONCE ONE Stop: 05/30/24 07:01 Aspirin (Aspirin 81 Mg) 81 mg PO DAILY [facility] Atorvastatin Calcium (Atorvastatin 40 Mg Tab) 40 mg PO HS [facility] Last Admin: 05/28/24 21:25 Dose: 40 mg Atorvastatin Calcium (Atorvastatin 80 Mg Tab) 80 mg PO ONCE ONE Stop: 05/30/24 07:01 Clopidogrel Bisulfate (Clopidogrel 75 Mg Tab) 75 mg PO DAILY [facility] Last Admin: 05/29/24 08:45 Dose: 75 mg Cyanocobalamin (Cyanocobalamin 500 Mcg Tab) 1,000 mcg PO DAILY [facility] Last Admin: 05/29/24 08:45 Dose: 1,000 mcg Dapagliflozin (Dapagliflozin Propanediol 10 Mg Tablet) 10 mg PO DAILY [facility] Last Admin: 05/29/24 08:44 Dose: 10 mg Dextrose/Water (Dextrose 50% Syringe 50 Ml) 25 ml IVP PER PROTOCOL PRN; Protocol PRN Reason: Hypoglycemia Dextrose/Water (Dextrose 50% Syringe 50 Ml) 50 ml IVP PER PROTOCOL PRN; Protocol PRN Reason: Hypoglycemia Ezetimibe (Ezetimibe 10 Mg Tab) 10 mg PO DAILY [facility] Last Admin: 05/29/24 08:44 Dose: 10 mg Famotidine (Famotidine 20 Mg Tab) 20 mg PO HS [facility] Last Admin: 05/28/24 21:25 Dose: 20 mg Heparin Sodium/Sodium Chloride (25,000 unit/ Sodium Chloride) 250 mls @ 8.709 mls/hr IV .Q24H [facility]; Protocol Last Admin: 05/29/24 12:07 Dose: 12 units/kg/hr, 8.709 mls/hr Heparin Sodium (Porcine) 10, (000 unit/ Sodium Chloride) 1,001 mls @ 999 mls/hr IRRIGATION ONCE PRN PRN Reason: INTRA-OP Stop: 05/30/24 23:00 Heparin Sodium (Porcine) 2,500 (unit/ Sodium Chloride) 250.5 mls @ 250 mls/hr IRRIGATION ONCE PRN PRN Reason: INTRA-OP Stop: 05/30/24 23:00 Insulin Aspart (Insulin Aspart (Novolog) 100 Unit/Ml Vial) 0 unit SQ ACHS [facility]; Protocol Last Admin: 05/29/24 12:04 Dose: Not Given Levothyroxine Sodium (Levothyroxine 112 Mcg Tab) 112 mcg PO [facility] Last Admin: 05/29/24 06:49 Dose: 112 mcg Lisinopril (Lisinopril 5 Mg Tab) 5 mg PO DAILY [facility] Last Admin: 05/29/24 08:45 Dose: 5 mg Metformin HCl (Metformin 500 Mg Tab) 250 mg PO BID [facility] Last Admin: 05/29/24 12:10 Dose: Not Given Metoprolol Tartrate (Metoprolol Tartrate 50 Mg Tab) 100 mg PO BID [facility] Last Admin: 05/29/24 08:45 Dose: 100 mg Nitroglycerin (Nitroglycerin Sl Tabs 0.4 Mg Tab) 0.4 mg SUBLINGUAL Q5M PRN PRN Reason: Chest Pain Nitroglycerin (Nitroglycerin Sl Tabs 0.4 Mg Tab) 0.4 mg SUBLINGUAL Q5M PRN PRN Reason: Chest Pain Non-Formulary Medication (Liraglutide [Victoza 3-Luiz]) 1.8 mg SQ DAILY [facility] Last Admin: 05/29/24 08:40 Dose: Not Given Pantoprazole Sodium (Pantoprazole 40 Mg Tablet) 40 mg PO -[facility] Last Admin: 09/02/24 06:49 Dose: 40 mg Repaglinide (Repaglinide 1 Mg Tab) 1 mg PO AC-BID [facility] Last Admin: 05/29/24 12:07 Dose: 1 mg Past medical history to include: CAD with stent, diabetes, hypertension, hyperlipidemia, osteoporosis, hypothyroid, PAD with stent Social history: Alcohol occasionally. Lives with her . Smoked for 40 years 2 packs a day stopped in 2003 Physical examination: VITAL SIGNS: 98.4, 75, 17, 146 x 63, 98% room air GENERAL: Sitting up, comfortable EYES: Pupils equal. Conjunctiva normal. HEENT: External appearance of nose and ears normal, oral cavity grossly normal. NECK: JVD not raised; masses not palpable. HEART: First and second heart sounds are normal; no edema. LUNGS: Respiratory rate normal; decreased breath sounds. ABDOMEN: Soft, nontender, liver spleen not palpable, no masses palpable. PSYCH: Alert and oriented x3; mood and affect normal. MUSCULOSKELETAL:No Clubbing/cyanosis;muscles-grossly intact. OA INVESTIGATIONS, reviewed in the clinical context: May 29: Potassium 3.9 BUN 18 creatinine 1.07 UA: Glucose 4+. Protein negative Renal ultrasound: Cardiomegaly differentiation maintained May 28, 2024: White count 7.1 hemoglobin 10.2 platelets 232 sodium 137 potassium 4.2 BUN 26 creatinine 1.25 Troponin I 0.045, 0.266, 0.301 EKG tracing personally reviewed by me-normal sinus rhythm. Left bundle bessie block. ST-T wave changes. Chest CTA: Nonspecific infiltrates. Chest x-ray film personally reviewed by me-some cardiomegaly and hyperinflation Assessment and plan: -Acute non-ST elevation [place] in a patient with known prior CAD Cardiology following. For cardiac cath tomorrow Aspirin. Plavix. Lipitor. Lopressor. IV heparin -IV heparin monitoring Follow PTT -Interstitial lung disease. -COPD no previous smoker Albuterol when necessary -CAD with prior history of stent Aspirin. Plavix. -PAD with prior intervention Aspirin, Plavix, Zetia -Diabetes mellitus type 2, on oral hypoglycemic Jardiance, metformin, and Victoza, Prandin. Follow Accu-Cheks and sliding scale -Primary osteoarthritis Tylenol when necessary -Evaluate for chronic kidney disease Patient's creatinine was 0.81 and December 2023. Renal ultrasound. UA. -Hyperlipidemia Lipitor -Hypothyroid Synthroid -Essential hypertension Lisinopril, Lopressor -Full code Discussed. Cardiac catheterization tomorrow Past Medical History Past Medical History: Coronary Artery Disease (CAD), Chest Pain / Angina, Diabetes Mellitus, Eye Disorder, GERD/Reflux, Hearing Disorder / Deafness, Hyperlipidemia, Hypertension, Myocardial Infarction ([place]), Myocardial Infarction (non Q-wave), Osteoarthritis ([place]), Thyroid Disorder, Vascular Disorder Additional Past Medical History / Comment(s): Peripheral Arterial Disease. Glaucoma, has left eye stent. Bilateral hearing aids. slightly sob at times follows with pulminologist Last Myocardial Infarction Date:: 2001 History of Any Multi-Drug Resistant Organisms: None Reported Past Surgical History: Adenoidectomy, Coronary Bypass/CABG, Heart Catheterization, Heart Catheterization With Stent, Tonsillectomy, Tubal Ligation Additional Past Surgical History / Comment(s): Triple bypass in 2019 EXP. LAP 02/2012, STENT TO HEART X1, INFRA RENAL AORTIC STENT, STENTS TO BILATERAL LEGS, AORTOGRAM WITH RUNOFF, bilateral cataracts removed, stent to left eye. Past Anesthesia/Blood Transfusion Reactions: No Reported Reaction Additional Past Anesthesia/Blood Transfusion Reaction / Comment(s): Has never had a blood transfusion. Date of Last Stent Placement:: 2001 Past Psychological History: No Psychological Hx Reported Smoking Status: Former smoker Past Alcohol Use History: Rare Additional Past Alcohol Use History / Comment(s): STARTED SMOKING AT AGE 28 (1964), QUIT IN 2003, SMOKED 2PPD. Past Drug Use History: None Reported
[2024-05-29 14:02] LABS: Chol/HDL Ratio 3.54 Ratio; LDL Cholesterol,Calculated 109.1 mg/dL (0.0-131.0)
[2024-05-29 16:49] LABS: Glucose,Whole Blood 99 mg/dL (70-110)
[2024-05-29 20:23] LABS: Glucose,Whole Blood 200 mg/dL (70-110)
[2024-05-30 05:00] VITALS: RESP 18; TEMP 98.2
[2024-05-30 06:25] LABS: Glucose,Whole Blood 163 mg/dL (70-110)
[2024-05-30] MEDS: ASPIRIN 325 MG TAB PO ONE (06:41)
[2024-05-30] MEDS: ATORVASTATIN 80 MG TAB PO ONE (06:42)
[2024-05-30] MEDS ORDERED: LIDOCAINE 1% INJ 10MG/ML (20 ML MDV) ONE (08:39)
[2024-05-30] MEDS ORDERED: VERAPAMIL 2.5 MG/ML 2 ML AMP ONE (08:39)
[2024-05-30] MEDS: MIDAZOLAM 2 MG/2 ML VIAL IVP ONE (09:06)
[2024-05-30] MEDS: LIDOCAINE 1% INJ 10MG/ML (20 ML MDV) SQ ONE (09:06)
[2024-05-30] MEDS: IV FLUID CONTINUATION 400 ML IV ONE (09:07)
[2024-05-30] MEDS ORDERED: fentaNYL (PF) 50 MCG/ML 2 ML AMP ONE (09:14)
[2024-05-30] MEDS: fentaNYL (PF) 50 MCG/ML 2 ML AMP IVP ONE ×2 (09:16)
[2024-05-30] MEDS: HEPARIN SODIUM,PORCINE 10,000 UNIT in SODIUM CHLORIDE 0.9% 1,000 ML IRRIGATION PRN (09:17)
[2024-05-30] MEDS: HEPARIN SODIUM,PORCINE (1 ML) 2,500 UNIT in SODIUM CHLORIDE 0.9% 250 ML IRRIGATION PRN (09:17)
[2024-05-30] MEDS ORDERED: RX INFO: IV CONTRAST WAS GIVEN 1 EACH MISC MISCELLANE PRN (09:38)
--- NOTE | 2024-05-30 09:42 | P.PCN ---
Date of Procedure: 05/30/24 Operative Findings: CARDIAC CATHETERIZATION PERFORMING PHYSICIAN: Berto Jeffries MD, RPVI PROCEDURE PERFORMED: 1. Selective right and left coronary angiogram as well as HURT to LAD angiogram and SVG to LCx angiogram and SVG to RCA angiogram 2. Left heart catheterization 3. Gradient measurement across the left subclavian artery and the right iliac artery 4. 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 Local anesthesia was performed using lidocaine subcutaneously. The right common femoral artery was cannulated using Seldinger technique, the guidewire passed easily, following that we advanced a 6 [place] sheath dilator assembly, the wire and dilator were removed and sheath was flushed. Selective right and left coronary angiogram using a 6-[place] JR4 and JL catheters. SVG to LCx angiogram was performed using JR4 catheter. SVG to RCA angiogram was performed using multipurpose catheter. HURT to LAD angiogram was performed using JR4 catheter. Following that we did left heart catheterization using 6-[place] pigtail catheter. After that I did the sheath which was 23 mm sheath pulled across the right common iliac artery. The procedure was completed there was no complication. SELECTIVE CORONARY ANGIOGRAM: The right coronary artery: Large-caliber vessel and a dominant vessel and subtotally occluded in the midportion Left main: Is occluded The left circumflex: Is occluded the proximal The left anterior descending artery: Is occluded the proximal Coronary bypasses angiogram The HURT to LAD is patent. The SVG to LCx is patent. The SVG to RCA is patent HEMODYNAMICS: The LVEDP was 18 mmHg with no significant gradient across aortic valve CONCLUSION: 1. Occluded left main and subtotally occluded RCA 2. Patent HURT to LAD and patent SVG to LCx and patent SVG to RCA 3. Significant gradient across the right iliac artery POSTPROCEDURE MANAGEMENT: Maximize medical treatment and follow-up with the patient
[2024-05-30] MEDS: IOPAMIDOL-370 200ML BTL INJ ONE (09:47)
[2024-05-30] MEDS ORDERED: hydrALAZINE HCL 20 MG/ML 1 ML VIAL ONE (09:50)
[2024-05-30] MEDS ORDERED: ENALAPRILAT 1.25 MG/ML 1 ML VIAL ONE (09:51)
[2024-05-30] MEDS: hydrALAZINE HCL 20 MG/ML 1 ML VIAL IVP ONE (09:55)
[2024-05-30] MEDS: ENALAPRILAT 1.25 MG/ML 1 ML VIAL IVP ONE (09:55)
[2024-05-30] MEDS: hydrALAZINE HCL 20 MG/ML 1 ML VIAL ONE (11:15)
[2024-05-30 11:30] LABS: Mean Platelet Volume 7.7; Platelet Count 245 k/uL (150-450)
[2024-05-30 11:45] LABS: Glucose,Whole Blood 120 mg/dL (70-110)
[2024-05-30] MEDS: SODIUM CHLORIDE 0.9% 1,000 ML IV SCH (11:58)
--- NOTE | 2024-05-30 14:51 | P.DS ---
Providers Date of admission: 05/30/24 11:10 Expected date of discharge: 05/30/24 Attending physician: Daryl Briceno Consults: 05/28/24 07:25 Consult Physician Routine Consulting Provider: Berto Jeffries Consult Reason/Comments: chest pain Do you want consulting provider notified?: Yes Primary care physician: Karley Winslow MD Hospital Course: Chief Complaint: Chest burning This is a pleasant 78-year-old patient follows with Dr. Karley Winslow. Neurologist-Dr. Jeffries Chronic stable medical conditions include CAD with stent, PAD with peripheral stents, diabetes, hypertension, hyperlipidemia, osteoarthritis,. Around midnight midnight patient woke up with some reflux chest burning. Took some Tums felt better. Around 1 AM again she developed the same symptoms. That Persisting. [place] rather tired. Did not radiate anywhere. Symptoms lasted for good 2 hours. Finally decided to come to the hospital. Some troponin bump. On IV heparin. May 29: Sitting at the window. Comfortable. Minimal short of breath going to the bathroom. Plan for cardiac catheterization tomorrow. Remains on IV heparin. at bedside. May 30: Patient underwent cardiac catheterization earlier today. Stent and bypass are patent. Nurse called me that Connie STORY from cardiac send patient can go home today. Patient's had no further cardiac symptoms. Questions answered. Past medical history to include: CAD with stent, diabetes, hypertension, hyperlipidemia, osteoporosis, hypothyroid, PAD with stent Social history: Alcohol occasionally. Lives with her . Smoked for 40 years 2 packs a day stopped in 2003 Past medical history to include: CAD with stent, diabetes, hypertension, hyperlipidemia, osteoporosis, hypothyroid, PAD with stent Social history: Alcohol occasionally. Lives with her . Smoked for 40 years 2 packs a day stopped in 2003 Physical examination: VITAL SIGNS: Afebrile, 81, 18, 139/86, 98% room air GENERAL: Sitting up, comfortable EYES: Pupils equal. Conjunctiva normal. HEENT: External appearance of nose and ears normal, oral cavity grossly normal. NECK: JVD not raised; masses not palpable. HEART: First and second heart sounds are normal; no edema. LUNGS: Respiratory rate normal; decreased breath sounds. ABDOMEN: Soft, nontender, liver spleen not palpable, no masses palpable. PSYCH: Alert and oriented x3; mood and affect normal. MUSCULOSKELETAL:No Clubbing/cyanosis;muscles-grossly intact. OA INVESTIGATIONS, reviewed in the clinical context: May 29: Potassium 3.9 BUN 18 creatinine 1.07 UA: Glucose 4+. Protein negative Renal ultrasound: Cardiomegaly differentiation maintained May 28, 2024: White count 7.1 hemoglobin 10.2 platelets 232 sodium 137 potassium 4.2 BUN 26 creatinine 1.25 Troponin I 0.045, 0.266, 0.301 EKG tracing personally reviewed by me-normal sinus rhythm. Left bundle bessie block. ST-T wave changes. Chest CTA: Nonspecific infiltrates. Chest x-ray film personally reviewed by me-some cardiomegaly and hyperinflation Assessment and plan: -Acute non-ST elevation AZ in a patient with known prior CAD Cardiology following. Aspirin. Plavix. Lipitor. Lopressor. IV heparin Cardiac catheterization did not show any stenosis. Patent stent and bypass. -Interstitial lung disease. -COPD no previous smoker Albuterol when necessary -CAD with prior history of stent Aspirin. Plavix. -PAD with prior intervention Aspirin, Plavix, Zetia -Diabetes mellitus type 2, on oral hypoglycemic Jardiance, metformin, and Victoza, Prandin. Follow Accu-Cheks and sliding scale -Primary osteoarthritis Tylenol when necessary -Outpatient evaluate for chronic kidney disease Patient's creatinine was 0.81 and December 2023. Renal ultrasound unremarkable. UA negative. BMP: 1 week -Hyperlipidemia Lipitor -Hypothyroid Synthroid -Essential hypertension Lisinopril, Lopressor -Full code Labs: BMP: 1 week Disposition: Home Past Medical History Past Medical History: Coronary Artery Disease (CAD), Chest Pain / Angina, Diabetes Mellitus, Eye Disorder, GERD/Reflux, Hearing Disorder / Deafness, Hype rlipidemia, Hypertension, Myocardial Infarction (AZ), Myocardial Infarction (non Q-wave), Osteoarthritis (OA), Thyroid Disorder, Vascular Disorder Additional Past Medical History / Comment(s): Peripheral Arterial Disease. Glaucoma, has left eye stent. Bilateral hearing aids. slightly sob at times follows with pulminologist Last Myocardial Infarction Date:: 2001 History of Any Multi-Drug Resistant Organisms: None Reported Past Surgical History: Adenoidectomy, Coronary Bypass/CABG, Heart Catheter ization, Heart Catheterization With Stent, Tonsillectomy, Tubal Ligation Additional Past Surgical History / Comment(s): Triple bypass in 2019 EXP. LAP 02/2012, STENT TO HEART X1, INFRA RENAL AORTIC STENT, STENTS TO BILATERAL LEGS, AORTOGRAM WITH RUNOFF, bilateral cataracts removed, stent to left eye. Past Anesthesia/Blood Transfusion Reactions: No Reported Reaction Additional Past Anesthesia/Blood Transfusion Reaction / Comment(s): Has never had a blood transfusion. Date of Last Stent Placement:: 2001 Past Psychological History: No Psychological Hx Reported Smoking Status: Former smoker Past Alcohol Use History: Rare Additional Past Alcohol Use History / Comment(s): STARTED SMOKING AT AGE 28 (1964), QUIT IN 2003, SMOKED 2PPD. Past Drug Use History: None Reported GENERAL: Sitting up, comfortable EYES: Pupils equal. Conjunctiva normal. HEENT: External appearance of nose and ears normal, oral cavity grossly normal. NECK: JVD not raised; masses not palpable. HEART: First and second heart sounds are normal; no edema. LUNGS: Respiratory rate normal; decreased breath sounds. ABDOMEN: Soft, nontender, liver spleen not palpable, no masses palpable. PSYCH: Alert and oriented x3; mood and affect normal. MUSCULOSKELETAL:No Clubbing/cyanosis;muscles-grossly intact. OA INVESTIGATIONS, reviewed in the clinical context: May 29: Potassium 3.9 BUN 18 creatinine 1.07 UA: Glucose 4+. Protein negative Renal ultrasound: Cardiomegaly differentiation maintained May 28, 2024: White count 7.1 hemoglobin 10.2 platelets 232 sodium 137 potassium 4.2 BUN 26 creatinine 1.25 Troponin I 0.045, 0.266, 0.301 EKG tracing personally reviewed by me-normal sinus rhythm. Left bundle bessie block. ST-T wave changes. Chest CTA: Nonspecific infiltrates. Chest x-ray film personally reviewed by me-some cardiomegaly and hyperinflation Assessment and plan: -Acute non-ST elevation AZ in a patient with known prior CAD Cardiology following. For cardiac cath tomorrow Aspirin. Plavix. Lipitor. Lopressor. IV heparin -IV heparin monitoring Follow PTT -Interstitial lung disease. -COPD no previous smoker Albuterol when necessary -CAD with prior history of stent Aspirin. Plavix. -PAD with prior intervention Aspirin, Plavix, Zetia -Diabetes mellitus type 2, on oral hypoglycemic Jardiance, metformin, and Victoza, Prandin. Follow Accu-Cheks and sliding scale -Primary osteoarthritis Tylenol when necessary -Evaluate for chronic kidney disease Patient's creatinine was 0.81 and December 2023. Renal ultrasound. UA. -Hyperlipidemia Lipitor -Hypothyroid Synthroid -Essential hypertension Lisinopril, Lopressor -Full code Discussed. Cardiac catheterization tomorrow Past Medical History Past Medical History: Coronary Artery Disease (CAD), Chest Pain / Angina, Diabetes Mellitus, Eye Disorder, GERD/Reflux, Hearing Disorder / Deafness, Hyperlipidemia, Hypertension, Myocardial Infarction (AZ), Myocardial Infarction (non Q-wave), Osteoarthritis (OA), Thyroid Disorder, Vascular Disorder Additional Past Medical History / Comment(s): Peripheral Arterial Disease. Glaucoma, has left eye stent. Bilateral hearing aids. slightly sob at times follows with pulminologist Last Myocardial Infarction Date:: 2001 History of Any Multi-Drug Resistant Organisms: None Reported Past Surgical History: Adenoidectomy, Coronary Bypass/CABG, Heart Catheterization, Heart Catheterization With Stent, Tonsillectomy, Tubal Ligation Additional Past Surgical History / Comment(s): Triple bypass in 2019 EXP. LAP 02/2012, STENT TO HEART X1, INFRA RENAL AORTIC STENT, STENTS TO BILATERAL LEGS, AORTOGRAM WITH RUNOFF, bilateral cataracts removed, stent to left eye. Past Anesthesia/Blood Transfusion Reactions: No Reported Reaction Additional Past Anesthesia/Blood Transfusion Reaction / Comment(s): Has never had a blood transfusion. Date of Last Stent Placement:: 2001 Past Psychological History: No Psychological Hx Reported Smoking Status: Former smoker Past Alcohol Use History: Rare Additional Past Alcohol Use History / Comment(s): STARTED SMOKING AT AGE 28 (1965), QUIT IN 2003, SMOKED 2PPD. Past Drug Use History: None Reported Plan - Discharge Summary Discharge Rx Participant: Yes New Discharge Prescriptions: Continue Ezetimibe [Zetia] 10 mg PO DAILY Ergocalciferol [Vitamin D2 (DRISDOL)] 1,250 mcg PO Q14D Clopidogrel [Plavix] 75 mg PO DAILY #30 tab Metoprolol Tartrate [Lopressor] 100 mg PO BID-W/MEALS Levothyroxine Sodium [Synthroid] 112 mcg PO AC-BRKFST Empagliflozin [Jardiance] 25 mg PO DAILY Famotidine [Pepcid] 40 mg PO HS Repaglinide [Prandin] 1 mg PO AC-BID Potassium Chloride [Klor-Con 8] 8 meq PO DAILY Liraglutide [Victoza 3-Luiz] 1.8 mg SQ DAILY Cyanocobalamin (Vitamin B-12) [Vitamin B-12] 1,000 mcg PO DAILY Aspirin 81 mg PO DAILY tab Pantoprazole Sodium 40 mg PO AC-BRKT Lovastatin [Mevacor] 20 mg PO HS lisinopriL [Zestril] 5 mg PO DAILY metFORMIN HCL ER [Glucophage XR] 500 mg PO DAILY Discharge Medication List Ergocalciferol [Vitamin D2 (DRISDOL)] 1,250 mcg PO Q14D 01/31/14 [History] Ezetimibe [Zetia] 10 mg PO DAILY 01/31/14 [History] Clopidogrel [Plavix] 75 mg PO DAILY #30 tab 12/06/18 [Rx] Empagliflozin [Jardiance] 25 mg PO DAILY 11/13/19 [History] Levothyroxine Sodium [Synthroid] 112 mcg PO AC-BRKFST 11/13/19 [History] Metoprolol Tartrate [Lopressor] 100 mg PO BID-W/MEALS 11/13/19 [History] Cyanocobalamin (Vitamin B-12) [Vitamin B-12] 1,000 mcg PO DAILY 12/12/22 [History] Famotidine [Pepcid] 40 mg PO HS 12/12/22 [History] Liraglutide [Victoza 3-Luiz] 1.8 mg SQ DAILY 12/12/22 [History] Potassium Chloride [Klor-Con 8] 8 meq PO DAILY 12/12/22 [History] Repaglinide [Prandin] 1 mg PO AC-BID 12/12/22 [History] Aspirin 81 mg PO DAILY tab 12/16/22 [Rx] Pantoprazole Sodium 40 mg PO AC-BRKFST 01/01/23 [History] Lovastatin [Mevacor] 20 mg PO HS 05/28/24 [History] lisinopriL [Zestril] 5 mg PO DAILY 05/28/24 [History] metFORMIN HCL ER [Glucophage XR] 500 mg PO DAILY 05/28/24 [History] Follow up Appointment(s)/Referral(s): Berto Jeffries MD [STAFF PHYSICIAN] - 1 Week Karley Winslow MD [Primary Care Provider] - 1-2 days
[2024-05-30 16:00] VITALS: BP 150/67; PULSE 76
[2024-05-30 16:36] LABS: Glucose,Whole Blood 147 mg/dL (70-110)
[2024-05-31] MEDS ORDERED: ASPIRIN 81 MG PO SCH (09:00)
--- NOTE | 2024-05-31 10:35 | CA ---
Transthoracic Echo Report Name: Sangeeta Vinson Age: 78 Gender: F : 1945 Exam Date: 05/30/2024 11:36 Exam Location: [facility] Ht (in): 62 Wt (lb): 160 Ordering Physician: Roseline Jasso Attending/Referring Phys: [id number], [employer] Manager Jessica Calabrese RDCS Procedure CPT: Indications: LVF Cardiac Hx: Technical Quality: Fair Contrast 1: Total Dose (mL): Contrast 2: Total Dose (mL): MEASUREMENTS (Male / Female) Normal Values 2D ECHO LV Diastolic Diameter PLAX 3.9 cm 4.2 - 5.9 / 3.9 - 5.3 cm LV Systolic Diameter PLAX 3.4 cm IVS Diastolic Thickness 1.2 cm 0.6 - 1.0 / 0.6 - 0.9 cm LVPW Diastolic Thickness 1.2 cm 0.6 - 1.0 / 0.6 - 0.9 cm LV Relative Wall Thickness 0.6 RV Internal Dim ED PLAX 2.8 cm LVOT Diameter 1.9 cm LA Systolic Diameter LX 4.0 cm 3.0 - 4.0 / 2.7 - 3.8 cm LA Volume 55.1 cm??? 18 - 58 / 22 - 52 cm??? LA Volume Index 30.5 cm???/m??? 16 - 28 cm???/m??? M-MODE Aortic Root Diameter MM 2.9 cm MV E Point Septal Separation 1.4 cm AV Cusp Separation MM 1.6 cm DOPPLER AV Peak Velocity 224.3 cm/s AV Peak Gradient 20.1 mmHg AV Mean Velocity 142.5 cm/s AV Mean Gradient 9.3 mmHg AV Velocity Time Integral 54.6 cm MV Peak Velocity 182.3 cm/s MV Peak Gradient 13.3 mmHg MV Mean Velocity 106.5 cm/s MV Mean Gradient 5.2 mmHg MV Velocity Time Integral 46.7 cm MV Area PHT 3.6 cm??? Mitral E Point Velocity 139.2 cm/s Mitral A Point Velocity 116.5 cm/s Mitral E to A Ratio 1.2 MV Deceleration Time 213.7 ms TR Peak Velocity 331.3 cm/s TR Peak Gradient 43.9 mmHg Right Ventricular Systolic Press 48.9 mmHg FINDINGS Left Ventricle Left ventricular ejection fraction is estimated at 50-55 %. Left ventricular cavity size normal. Mildly increased septal wall thickness. Mildly increased posterior wall thickness. Normal left ventricular wall motion. Right Ventricle Normal right ventricular size and function. Moderate pulmonary hypertension. Right ventricular systolic pressure estimated at 49 mm hg. Right Atrium Normal right atrial size. No right atrial thrombus or mass seen. Left Atrium Mildly increased left atrial diameter. Mildly increased left atrial volume. No left atrial thrombus or mass present. Mitral Valve Mitral valve thickened. Moderate mitral annular calcification. Mild mitral stenosis with mean gradient of 5 mmHg Aortic Valve Trileaflet aortic valve. Aortic valve sclerosis. Mild aortic stenosis with a peak gradient of 20 mmHg and a mean gradient of 9 mmHg. Tricuspid Valve Structurally normal tricuspid valve. Mild tricuspid regurgitation. Pulmonic Valve Structurally normal pulmonic valve. Mild pulmonic regurgitation. Pericardium No pericardial or pleural effusion. Aorta Normal size aortic root and proximal ascending aorta. CONCLUSIONS The left ventricular size is normal. Ejection fraction is 50 to 55%. There is mild to moderate concentric LVH and atypical septal motion. There is mitral annular calcification and aortic valve sclerosis with mild restriction. There is probably mild aortic stenosis. There is mild calcific mitral stenosis. Moderate pulmonary hypertension noted. No pericardial effusion Previewed by: Dr. Ivan Carlton MD (Electronically Signed) Final Date: 31 May 2024 10:35
== END 2024-05-30 18:09 | disposition home or self-care (01) | DRG 281 ==
LOC: EC 03:41 → 3SCARD 07:25 → OBSVTOIN 05-30 11:10
PROVIDERS: ADMIT Hospitalist; ATTEND Hospitalist
PROC: B2111ZZ Fluoroscopy of Multiple Coronary Arteries using Low Osmolar Contrast (ICD-10-PCS; 2024-05-30)
PROC: B2181ZZ Fluoroscopy of Left Internal Mammary Bypass Graft using Low Osmolar Contrast (ICD-10-PCS; 2024-05-30)
PROC: B2131ZZ Fluoroscopy of Multiple Coronary Artery Bypass Grafts using Low Osmolar Contrast (ICD-10-PCS; 2024-05-30)
PROC: 4A023N7 Measurement of Cardiac Sampling and Pressure, Left Heart, Percutaneous Approach (ICD-10-PCS; principal; 2024-05-30 11:30)
DX: I21.4 Non-ST elevation (NSTEMI) myocardial infarction (principal); J84.9 Interstitial pulmonary disease, unspecified; N17.9 Acute kidney failure, unspecified; I12.9 Hypertensive chronic kidney disease with stage 1 through stage 4 chronic kidney disease, or unspecified chronic kidney disease; E03.9 Hypothyroidism, unspecified; E11.51 Type 2 diabetes mellitus with diabetic peripheral angiopathy without gangrene; E11.22 Type 2 diabetes mellitus with diabetic chronic kidney disease; N18.9 Chronic kidney disease, unspecified; E78.5 Hyperlipidemia, unspecified; H40.9 Unspecified glaucoma; H91.90 Unspecified hearing loss, unspecified ear; F10.20 Alcohol dependence, uncomplicated; I25.10 Atherosclerotic heart disease of native coronary artery without angina pectoris; I25.2 Old myocardial infarction; M19.90 Unspecified osteoarthritis, unspecified site; I44.7 Left bundle-branch block, unspecified; K21.9 Gastro-esophageal reflux disease without esophagitis; M81.0 Age-related osteoporosis without current pathological fracture; Z79.02 Long term (current) use of antithrombotics/antiplatelets; Z79.82 Long term (current) use of aspirin; Z79.84 Long term (current) use of oral hypoglycemic drugs; Z79.890 Hormone replacement therapy; Z79.899 Other long term (current) drug therapy; Z82.49 Family history of ischemic heart disease and other diseases of the circulatory system; Z87.891 Personal history of nicotine dependence; Z95.1 Presence of aortocoronary bypass graft; Z95.5 Presence of coronary angioplasty implant and graft; Z95.820 Peripheral vascular angioplasty status with implants and grafts; Z97.4 Presence of external hearing-aid; Z98.51 Tubal ligation status; Z98.42 Cataract extraction status, left eye; Z98.41 Cataract extraction status, right eye; Z88.5 Allergy status to narcotic agent
CPT/HCPCS: 36415; 71046; 71275; 76770; 80048; 80053; 80061; 81001; 83735; 84484; 85025; 85049; 85379; 85610; 85730; 93005; 93306; 93459; 96365; 99291

== ENCOUNTER 2024-06-09 04:44 | Inpatient (IN) | payer MEDICARE ==
--- NOTE | 2024-06-09 04:48 | ED ---
General Adult HPI - General Stated complaint: CP, Tachycardia Time Seen by Provider: 06/09/24 04:45 - History of Present Illness Initial comments: Dictation was produced using [employer] dictation software. please excuse any grammatical, word or spelling errors. Chief Complaint: 78-year-old female with history of coronary artery disease presents to the emergency department for palpitations and dyspnea History of Present Illness: Patient 78-year-old female she woke up from a deep sleep having palpitations and dyspnea. Patient states that she felt like her chest was pounding caused her to wake up. She did not feel right told her to call EMS. EMS states that patient had normal sinus rhythm on EKG. She was given an aspirin. Patient states that she feels improved except for some mild shortness of breath. Denies any fever, chills or night sweats. The ROS documented in this emergency department record has been reviewed and confirmed by me. Those systems with pertinent positive or negative responses have been documented in the HPI. All other systems are other negative and/or noncontributory. - Related Data Home Medications Medication Instructions Recorded Confirmed Ergocalciferol [Vitamin D2 1,250 mcg PO Q14D 01/31/14 05/28/24 (DRISDOL)] Ezetimibe [Zetia] 10 mg PO DAILY 01/31/14 05/28/24 Empagliflozin [Jardiance] 25 mg PO DAILY 11/13/19 05/28/24 Levothyroxine Sodium [Synthroid] 112 mcg PO AC-BRKFST 11/13/19 05/28/24 Metoprolol Tartrate [Lopressor] 100 mg PO BID-W/MEALS 11/13/19 05/28/24 Cyanocobalamin (Vitamin B-12) 1,000 mcg PO DAILY 12/12/22 05/28/24 [Vitamin B-12] Famotidine [Pepcid] 40 mg PO HS 12/12/22 05/28/24 Liraglutide [Victoza 3-Luiz] 1.8 mg SQ DAILY 12/12/22 05/28/24 Potassium Chloride [Klor-Con 8] 8 meq PO DAILY 12/12/22 05/28/24 Repaglinide [Prandin] 1 mg PO AC-BID 12/12/22 05/28/24 Pantoprazole Sodium 40 mg PO AC-BRKFST 01/01/23 05/28/24 Lovastatin [Mevacor] 20 mg PO HS 05/28/24 05/28/24 lisinopriL [Zestril] 5 mg PO DAILY 05/28/24 05/28/24 metFORMIN HCL ER [Glucophage XR] 500 mg PO DAILY 05/28/24 05/28/24 Previous Rx's Medication Instructions Recorded Clopidogrel [Plavix] 75 mg PO DAILY #30 tab 12/06/18 Aspirin 81 mg PO DAILY tab 12/16/22 Allergies Allergy/AdvReac Type Severity Reaction Status Date / Time hydromorphone HCl AdvReac RESPIRATORY Verified 06/09/24 04:52 [From Dilaudid] DEPRESSION Review of Systems ROS Statement: Those systems with pertinent positive or pertinent negative responses have been documented in the HPI. ROS Other: All systems not noted in ROS Statement are negative. Past Medical History Past Medical History: Coronary Artery Disease (CAD), Chest Pain / Angina, Diabetes Mellitus, Eye Disorder, GERD/Reflux, Hearing Disorder / Deafness, Hyperlipidemia, Hypertension, Myocardial Infarction ([place]), Myocardial Infarction (non Q-wave), Osteoarthritis (OA), Thyroid Disorder, Vascular Disorder Additional Past Medical History / Comment(s): Peripheral Arterial Disease. Gla ucoma, has left eye stent. Bilateral hearing aids. slightly sob at times follows with pulminologist Last Myocardial Infarction Date:: 2001 History of Any Multi-Drug Resistant Organisms: None Reported Past Surgical History: Adenoidectomy, Coronary Bypass/CABG, Heart Catheterization, Heart Catheterization With Stent, Tonsillectomy, Tubal Ligation Additional Past Surgical History / Comment(s): Triple bypass in 2019 EXP. LAP 02/2012, STENT TO HEART X1, INFRA RENAL AORTIC STENT, STENTS TO BILATERAL LEGS, AORTOGRAM WITH RUNOFF, bilateral cataracts removed, stent to left eye. Past Anesthesia/Blood Transfusion Reactions: No Reported Reaction Additional Past Anesthesia/Blood Transfusion Reaction / Comment(s): Has never had a blood transfusion. Date of Last Stent Placement:: 2001 Past Psychological History: No Psychological Hx Reported Smoking Status: Former smoker Past Alcohol Use History: Rare Past Drug Use History: None Reported - Past Family History Mother Family Medical History: Dementia Additional Family Medical History / Comment(s): HEART PROBLEMS. Father Family Medical History: Coronary Artery Disease (CAD), Myocardial Infarction ([place]) Additional Family Medical History / Comment(s): Her father at age 79 with a myocardial infarction. General Exam - General Exam Comments Initial Comments: PHYSICAL EXAM: General Impression: Alert and oriented x3, dyspneic HEENT: Normocephalic atraumatic, extra-ocular movements intact, pupils equal and reactive to light bilaterally, mucous membranes moist. Cardiovascular: Heart regular rate and rhythm Chest: Dyspneic appearing, diffuse crackles Abdomen: abdomen soft, non-tender, non-distended, no organomegaly Musculoskeletal: Pulses present and equal in all extremities, no peripheral edema Motor: no focal deficits noted Neurological: CN II-XII grossly intact, no focal motor or sensory deficits noted Skin: Intact with no visualized rashes Psych: Normal affect and mood Course Vital Signs 06/09/24 06/09/24 06/09/24 04:49 04:53 05:38 Temperature 98.3 F Pulse Rate 86 112 H Respiratory 20 20 29 H Rate Blood Pressure 166/100 188/136 O2 Sat by Pulse 94 L 89 L Oximetry Fraction of Inspired Oxygen (FIO2) 06/09/24 06/09/24 05:46 05:47 Temperature Pulse Rate 105 H Respiratory 30 H Rate Blood Pressure 189/96 O2 Sat by Pulse 97 Oximetry Fraction of 100 100 Inspired Oxygen (FIO2) EKG Findings - EKG Comments: EKG Findings:: My EKG interpretation: Ventricular rate 87, sinus rhythm,. 199, QRS 160, QTc 462, left bundle branch block. No Sgarbossa criteria met. No KS prolongation, no QTC prolongation, no ST or T-wave changes noted. EKG compared to May 29, 2024 showing no changes. Overall, this EKG is unremarkable Medical Decision Making - Medical Decision Making Was pt. sent in by a medical professional or institution (, PA, GLOBAL LOGISTICS MANAGER, urgent care, hospital, or fdc...) When possible be specific @ -No Did you speak to anyone other than the patient for history (EMS, parent, family, police, friend...)? What history was obtained from this source @ -Some history obtained by EMS as described above Did you review nursing and triage notes (agree or disagree)? Why? @ -I reviewed and agree with nursing and triage notes Were old charts reviewed (outside hosp., previous admission, EMS record, old EKG, old radiological studies, urgent care reports/EKG's, fdc records)? Report findings @ -Echocardiogram from 10 days ago was reviewed showing patient has ejection fraction of 50 to 55% Differential Diagnosis (chest pain, altered mental status, abdominal pain women, abdominal pain men, vaginal bleeding, musculoskeletal, weakness, fever, dyspnea, syncope, headache, dizziness, GI bleed, back pain, seizure, CVA, palpatations, mental health)? @ -Differential Dyspnea: Coronary syndrome, arrhythmia, tamponade, asthma, COPD, pulmonary embolism, pneumonia, pneumothorax, pulmonary effusion, anaphylaxis, diabetic ketoacidosis, flailed chest, pulmonary contusion, diaphragmatic rupture, anemia, neuromuscular, this is not meant to be an all-inclusive list. EKG interpreted by me (3pts min.). @ -See above X-rays interpreted by me (1pt min.). @ -Chest x-ray shows pulmonary edema CT interpreted by me (1pt min.). @ -None done U/S interpreted by me (1pt. min.). @ -None done What testing was considered but not performed or refused? (CT, X-rays, U/S, labs)? Why? @ -None What meds were considered but not given or refused? Why? @ -None Was smoking cessation discussed for >3mins.? @ -No Were there social determinants of health that impacted care today? How? (Homelessness, low income, unemployed, alcoholism, drug addiction, transportation, low edu. Level, literacy, decrease access to med. care, correction, rehab)? @ -No Was there de-escalation of care discussed even if they declined (Discuss DNR or withdrawal of care, Hospice)? DNR status @ -No What co-morbidities impacted this encounter? (DM, HTN, Smoking, COPD, CAD, Cancer, CVA, ARF, Chemo, Hep., AIDS, mental health diagnosis, sleep apnea, morbid obesity)? @ -Coronary artery disease Was patient admitted / discharged? Hospital course, mention meds given and route, prescriptions, significant lab abnormalities, going to OR and other pertinent info. @ -78-year-old female presents emergency department for chest pain and palpitations. Vital signs upon arrival shows findings within acceptable limits. EKG shows stable findings. Laboratory evaluation obtained. CBC, coag panel is unremarkable. Metabolic panel is within acceptable limits. Troponin is negative. Range atretic peptide is 3000. Patient after being here began complaining of worsening symptoms. She was found to have worsening crackles placed on BiPAP given Lasix. Her blood pressure was elevated and patient was given sublingual nitroglycerin. Patient reevaluated at 6:10 AM with improvement of symptoms. Patient will be admitted consultation cardiology. Case discussed with Dr. Briceno for admission Did you discuss the management of the patient with other professionals (professionals i.e. , PA, GLOBAL LOGISTICS MANAGER, lab, RT, psych nurse, dialysis social worker, environmental protection geologist, teacher, national service officer, medical case manager)? Give summary @ -See above Was critical care preformed (if so, how long)? @ -Yes, 33 minutes for hypertensive emergency requiring nitroglycerin admission and BiPAP placement for respiratory failure Undiagnosed new problem with uncertain prognosis? @ -No Drug Therapy requiring intensive monitoring for toxicity (Heparin, Nitro, Insulin, Cardizem)? @ -No Were any procedures done? @ -No Diagnosis/symptom? Acute, or Chronic, or Acute on Chronic? Uncomplicated (without systemic symptoms) or Complicated (systemic symptoms)? @ -Heart failure exacerbation, complicated by respiratory failure Side effects of treatment? @ -No Exacerbation, Progression, or Severe Exacerbation? @ -No Poses a threat to life or bodily function? How? (Chest pain, [place], [place], pneumonia, PE, COPD, DKA, ARF, appy, cholecystitis, CVA, Diverticulitis, Homicidal, Suicidal, threat to staff... and all critical care pts) @ -yes - Lab Data Result diagrams: 06/09/24 04:59 06/09/24 04:59 Lab Results 06/09/24 06/09/24 06/09/24 Range/Units 04:59 04:59 04:59 WBC 9.2 (3.8-10.6) k/uL RBC 4.57 (3.80-5.40) m/uL Hgb 10.1 L (11.4-16.0) gm/dL Hct 33.9 L (34.0-46.0) % MCV 74.1 L (80.0-100.0) fL MCH 22.2 L (25.0-35.0) pg MCHC 29.9 L (31.0-37.0) g/dL RDW 17.8 H (11.5-15.5) % Plt Count 330 (150-450) k/uL MPV 6.7 Neutrophils % 75 % Lymphocytes % 17 % Monocytes % 3 % Eosinophils % 4 % Basophils % 1 % Neutrophils # 6.9 (1.3-7.7) k/uL Lymphocytes # 1.6 (1.0-4.8) k/uL Monocytes # 0.3 (0-1.0) k/uL Eosinophils # 0.3 (0-0.7) k/uL Basophils # 0.1 (0-0.2) k/uL Hypochromasia Marked Anisocytosis Slight Microcytosis Moderate PT 10.7 (10.0-12.5) sec INR 1.0 (<1.2) APTT 22.8 (22.0-30.0) sec Sodium 135 L (137-145) mmol/L Potassium 3.8 (3.5-5.1) mmol/L Chloride 101 (98-107) mmol/L Carbon Dioxide 23 (22-30) mmol/L Anion Gap 11 mmol/L BUN 16 (7-17) mg/dL Creatinine 1.04 (0.52-1.04) mg/dL Est GFR (CKD-EPI)AfAm 59 (>60 ml/min/1.73 sqM) Est GFR (CKD-EPI)NonAf 51 (>60 ml/min/1.73 sqM) Glucose 169 H (74-99) mg/dL Calcium 9.0 (8.4-10.2) mg/dL Magnesium 1.7 (1.6-2.3) mg/dL Total Bilirubin 0.6 (0.2-1.3) mg/dL AST 21 (14-36) U/L ALT 13 (4-34) U/L Alkaline Phosphatase 97 (38-126) U/L Troponin I (0.000-0.034) ng/mL NT-Pro-B Natriuret Pep 3180 pg/mL Total Protein 6.7 (6.3-8.2) g/dL Albumin 3.8 (3.5-5.0) g/dL TSH 0.758 (0.465-4.680) mIU/L Influenza Type A (PCR) (Not Detectd) Influenza Type B (PCR) (Not Detectd) RSV (PCR) (Not Detectd) SARS-CoV-2 (PCR) (Not Detectd) 06/09/24 06/09/24 Range/Units 04:59 04:59 WBC (3.8-10.6) k/uL RBC (3.80-5.40) m/uL Hgb (11.4-16.0) gm/dL Hct (34.0-46.0) % MCV (80.0-100.0) fL MCH (25.0-35.0) pg MCHC (31.0-37.0) g/dL RDW (11.5-15.5) % Plt Count (150-450) k/uL MPV Neutrophils % % Lymphocytes % % Monocytes % % Eosinophils % % Basophils % % Neutrophils # (1.3-7.7) k/uL Lymphocytes # (1.0-4.8) k/uL Monocytes # (0-1.0) k/uL Eosinophils # (0-0.7) k/uL Basophils # (0-0.2) k/uL Hypochromasia Anisocytosis Microcytosis PT (10.0-12.5) sec INR (<1.2) APTT (22.0-30.0) sec Sodium (137-145) mmol/L Potassium (3.5-5.1) mmol/L Chloride (98-107) mmol/L Carbon Dioxide (22-30) mmol/L Anion Gap mmol/L BUN (7-17) mg/dL Creatinine (0.52-1.04) mg/dL Est GFR (CKD-EPI)AfAm (>60 ml/min/1.73 sqM) Est GFR (CKD-EPI)NonAf (>60 ml/min/1.73 sqM) Glucose (74-99) mg/dL Calcium (8.4-10.2) mg/dL Magnesium (1.6-2.3) mg/dL Total Bilirubin (0.2-1.3) mg/dL AST (14-36) U/L ALT (4-34) U/L Alkaline Phosphatase (38-126) U/L Troponin I <0.012 (0.000-0.034) ng/mL NT-Pro-B Natriuret Pep pg/mL Total Protein (6.3-8.2) g/dL Albumin (3.5-5.0) g/dL TSH (0.465-4.680) mIU/L Influenza Type A (PCR) Not Detected (Not Detectd) Influenza Type B (PCR) Not Detected (Not Detectd) RSV (PCR) Not Detected (Not Detectd) SARS-CoV-2 (PCR) Not Detected (Not Detectd) Disposition Clinical Impression: Congestive heart failure Disposition: ADMITTED IP TO THIS [facility] Condition: Serious Referrals: Karley Winslow MD [Primary Care Provider] - 1-2 days Decision Time: 06:11
[2024-06-09 05:06] LABS: Anisocytosis Slight; Basophils # (A) 0.1 k/uL (0-0.2); Basophils % (A) 1 %; Eosinophils # (A) 0.3 k/uL (0-0.7); Eosinophils % (A) 4 %; HCT 33.9 % (34.0-46.0); HGB 10.1 gm/dL (11.4-16.0); Hypochromasia Marked; Lymphocytes # (A) 1.6 k/uL (1.0-4.8); Lymphocytes % (A) 17 %; MCH 22.2 pg (25.0-35.0); MCHC 29.9 g/dL (31.0-37.0); MCV 74.1 fL (80.0-100.0); Mean Platelet Volume 6.7; Microcytosis Moderate; Monocytes # (A) 0.3 k/uL (0-1.0); Monocytes % (A) 3 %; Neutrophils # (A) 6.9 k/uL (1.3-7.7); Neutrophils % (A) 75 %; Platelet Count 330 k/uL (150-450); RBC 4.57 m/uL (3.80-5.40); RDW 17.8 % (11.5-15.5); WBC 9.2 k/uL (3.8-10.6)
[2024-06-09 05:16] LABS: ALT 13 U/L (4-34); AST 21 U/L (14-36); African American GFR (CKD) 59 (>60 ml/min/1.73 sqM); Albumin 3.8 g/dL (3.5-5.0); Alkaline Phosphatase 97 U/L (38-126); Anion Gap 11 mmol/L; Blood Urea Nitrogen 16 mg/dL (7-17); Carbon Dioxide 23 mmol/L (22-30); Chloride 101 mmol/L (98-107); Glucose 169 mg/dL (74-99); Magnesium 1.7 mg/dL (1.6-2.3); Non-African American GFR(CKD) 51 (>60 ml/min/1.73 sqM); Sodium 135 mmol/L (137-145); Total Bilirubin 0.6 mg/dL (0.2-1.3); Total Protein 6.7 g/dL (6.3-8.2)
[2024-06-09 05:24] LABS: NT-Pro-B-Type Natriuretic Pept 3180 pg/mL; Partial Thromboplastin Time 22.8 sec (22.0-30.0); Prothrombin Time 10.7 sec (10.0-12.5)
[2024-06-09] MEDS: FUROSEMIDE 10 MG/ML 4 ML VIAL IV STA (05:31)
[2024-06-09 05:36] LABS: Potassium 3.8 mmol/L (3.5-5.1)
[2024-06-09] MEDS: NITROGLYCERIN SL TABS 0.4 MG TAB SUBLINGUAL STA (05:38)
[2024-06-09] MEDS: ASPIRIN 325 MG TAB PO STA (06:37)
[2024-06-09] MEDS: NITROGLYCERIN-D5W PMX 50 MG in DEXTROSE/WATER 1 250ML.BAG IV SCH (08:26)
[2024-06-09] MEDS: FUROSEMIDE 10 MG/ML 4 ML VIAL IV SCH (08:34)
[2024-06-09] MEDS: METOPROLOL TARTRATE 50 MG TAB PO SCH (08:36)
[2024-06-09] MEDS: lisinopriL 10 MG TAB PO SCH (08:36)
[2024-06-09] MEDS: POTASSIUM CHLORIDE ER 10 MEQ TAB.ER.PRT PO SCH (08:37)
[2024-06-09] MEDS: CLOPIDOGREL 75 MG TAB PO SCH (08:37)
[2024-06-09] MEDS: ASPIRIN 81 MG PO SCH (08:38)
[2024-06-09] MEDS: EZETIMIBE 10 MG TAB PO SCH (08:38)
--- NOTE | 2024-06-09 08:45 | XR ---
EXAMINATION TYPE: XR chest 2V DATE OF EXAM: 06/09/2024 COMPARISON: 05/28/2024 HISTORY: 78-year-old female with chest pain, shortness of breath, tachycardia TECHNIQUE: AP and lateral views FINDINGS: Median sternotomy wires are post-CABG clips. Heart mildly enlarged. Diffuse interstitial and mild pat sofia opacities have worsened from 05/28/2024. Trace pleural effusions on the lateral view. IMPRESSION: Mild cardiomegaly with worsening interstitial and patchy opacities. Additional trace pleural effusion s on the lateral view. Correlate for CHF with interstitial pulmonary edema.
[2024-06-09] MEDS ORDERED: lisinopriL 5 MG TAB PO SCH (09:00)
[2024-06-09] MEDS ORDERED: DEXTROSE 50% SYRINGE 50 ML IVP PRN ×2 (09:59)
--- NOTE | 2024-06-09 10:24 | US ---
EXAMINATION TYPE: US renal artery duplex complete DATE OF EXAM: 06/09/2024 COMPARISON: CT 11/18/2022 CLINICAL INDICATION: Female, 78 years old with history of HTN; HTN MEASUREMENTS: RENAL SIZE: Right Kidney: 9.6 x 4.6 x 4.6 cm Left Kidney: 9.2 x 4.8 x 4.9 cm Right Kidney: No hydronephrosis or lesions seen Left Kidney: Limited views show no hydro Abd Aorta: Narrowing with heavily calcified arvizu as visualized on prior CT, with elevated velocity= 289 cm/s and turbulent flow RESISTANCE INDEX Right: 0.8 Left: 0.8 RA/AO RATIO (< 3.5 ) Right: 0.7 Left: Unable to obtain RENAL ARTERY VELOCITY ( < 180 cm/s) Right: 194.9 Left: Unable to visualize Silk Weaver Notes: Immobile pt on Bi-pap- extremely limited exam, heavily calcified aorta and overly ing bowel gas limits views of renal arteries bilaterally IMPRESSION: 1. Heavily calcified atherosclerotic plaque especially mid and distal abdominal aorta continuing to e levated peak systolic flow velocities at 290 cm/s. Underlying significant atherosclerotic aortic sten osis not excluded. 2. Limited visualization of the left kidney. Unable to adequately assess the left renal vasculature. 3. While the velocities in the right renal artery are elevated, the ratio appears normal. However, th is may be a function of the abnormally elevated aortic velocity. The resistive index appears normal. Equivocal for right renal artery stenosis.
--- NOTE | 2024-06-09 11:32 | P.CRDCN ---
History of Present Illness Consult date: 06/09/24 Consult reason: congestive heart failure History of present illness: This is a 78-year-old female patient of Dr. Jeffries with past medical history of coronary artery disease status post CABG with HURT to LAD, SVG to left circumflex and SVG to RCA, known intermediate disease involving the distal anastomosis of SVG to RCA, peripheral artery disease status post bilateral iliac stenting and bilateral SFA angioplasty as well as valvular heart disease, hypertension, dyslipidemia. We have been asked to evaluate the patient for heart failure. Patient had a recent hospitalization on 05/28 at which time she presented with NSTEMI and underwent cardiac catheterization as below. Patient now presents to the hospital due to shortness of breath. She denies chest pain. She states she has had some pounding in her chest and shortness of breath. No change in her diet. Patient is status post 1 dose of IV Lasix 40 mg and has been placed on BiPAP. Blood pressure 178/81, heart rate 84, pulse ox 99%. EKG: Sinus rhythm, left bundle branch block Chest x-ray: Mild cardiomegaly with worsening interstitial and patchy opacities. Additional trace pleural effusions on the lateral view. Correlate for heart failure with interstitial pulmonary edema. Laboratory studies: WBC 9.2, hemoglobin 10.1, platelet count 330. Troponin negative x 1. TSH 0.758, proBNP 3180. Home cardiac medications: Aspirin 81 mg daily, Plavix 75 mg daily, Jardiance 25 mg daily, Zetia 10 mg daily, lisinopril 5 mg daily, lovastatin 20 mg daily, metoprolol tartrate 100 mg twice daily, potassium chloride 8 mEq daily, patient also on levothyroxine 112 mcg daily. Echocardiogram performed 05/30/2024 revealed EF of 50 to 55%. Mild to moderate concentric left ventricular hypertrophy with atypical septal motion. Mitral annular calcification can and aortic valve sclerosis with mild restriction. Probable mild aortic stenosis. Mild calcified mitral stenosis. Moderate pulmonary hypertension. No pericardial effusion. Most recent cardiac catheterization was performed on 05/30/2024 revealed occluded left main and subtotally occluded RCA, patent HURT to LAD and patent SVG to left circumflex, patent SVG to RCA. Significant gradient across acute right iliac artery. Plan was to maximize medical treatment. 12/02/2018 coronary artery bypass grafting with 3 vessels HURT to LAD, SVG to obtuse marginal, SVG to the distal right coronary artery. Review Of Systems: At the time of my exam: CONSTITUTIONAL: Denies fever or chills. HEENT: Denies blurred vision, vision changes, or eye pain. Denies hemoptysis CARDIOVASCULAR: Denies chest pain. Denies orthopnea. Denies PND. Denies pal pitations RESPIRATORY: Reports shortness of breath. GASTROINTESTINAL: Denies abdominal pain. Denies nausea or vomiting. HEMATOLOGIC: Denies bleeding disorders. GENITOURINARY: Denies any blood in urine. SKIN: Denies puritis. Denies rash. Physical examination: Gen: This is a 78-year-old female in no acute distress. VS: reviewed HEENT: Head is atraumatic, normocephalic. Pupils equal, round. Sclerae is anicteric. NECK: Supple. No JVD. LUNGS: Diminished. No wheezes or rhonchi. No intercostal retractions. HEART: Regular rate and rhythm. Systolic murmur. ABDOMEN: Soft No tenderness. EXTREMITIES: Edema bilat lower extemities. No calf tenderness. NEUROLOGICAL: Patient is awake, alert and oriented x3. Assessment: Acute hypoxic respiratory failure secondary to acute diastolic heart failure Hypertensive emergency Recent NSTEMI earlier this month History of coronary artery disease status post CABG with HURT to LAD, S VG to left circumflex and SVG to RCA, known intermediate disease involving the distal anastomosis of SVG to RCA Peripheral artery disease status post bilateral iliac stenting and bilateral SFA angioplasty Valvular heart disease Hypertension Dyslipidemia. Plan: Resume patient's home cardiac medications with the following changes: Increase lisinopril to 10 mg daily Start patient on IV Lasix 40 mg every 12 hours Monitor JOCELYNE, daily weights, electrolytes and renal function Repeat troponins Further recommendations to follow based upon clinical course Thank you kindly for this consultation. Nurse practitioner note has been reviewed, I agree with documented findings and plan of care. Patient was seen and examined. Past Medical History Past Medical History: Coronary Artery Disease (CAD), Chest Pain / Angina, Diabetes Mellitus, Eye Disorder, GERD/Reflux, Hearing Disorder / Deafness, Hyperlipidemia, Hypertension, Myocardial Infarction (GA), Myocardial Infarction (non Q-wave), Osteoarthritis (OA), Thyroid Disorder, Vascular Disorder Additional Past Medical History / Comment(s): Peripheral Arterial Disease. Glaucoma, has left eye stent. Bilateral hearing aids. slightly sob at times follows with pulminologist Last Myocardial Infarction Date:: 2001 History of Any Multi-Drug Resistant Organisms: None Reported Past Surgical History: Adenoidectomy, Coronary Bypass/CABG, Heart Catheterization, Heart Catheterization With Stent, Tonsillectomy, Tubal Ligation Additional Past Surgical History / Comment(s): Triple bypass in 2019 EXP. LAP 02/2012, STENT TO HEART X1, INFRA RENAL AORTIC STENT, STENTS TO BILATERAL LEGS, AORTOGRAM WITH RUNOFF, bilateral cataracts removed, stent to left eye. Past Anesthesia/Blood Transfusion Reactions: No Reported Reaction Additional Past Anesthesia/Blood Transfusion Reaction / Comment(s): Has never had a blood transfusion. Date of Last Stent Placement:: 2001 Past Psychological History: No Psychological Hx Reported Smoking Status: Former smoker Past Alcohol Use History: Rare Past Drug Use History: None Reported - Past Family History Mother Family Medical History: Dementia Additional Family Medical History / Comment(s): HEART PROBLEMS. Father Family Medical History: Coronary Artery Disease (CAD), Myocardial Infarction (GA) Additional Family Medical History / Comment(s): Her father at age 79 with a myocardial infarction. Medications and Allergies Home Medications Medication Instructions Recorded Confirmed Type Ezetimibe [Zetia] 10 mg PO DAILY 01/31/14 06/09/24 History Clopidogrel [Plavix] 75 mg PO DAILY #30 tab 12/06/18 06/09/24 Rx Empagliflozin [Jardiance] 25 mg PO DAILY 11/13/19 06/09/24 History Levothyroxine Sodium [Synthroid] 112 mcg PO AC-BRKFST 11/13/19 06/09/24 History Metoprolol Tartrate [Lopressor] 100 mg PO BID-W/MEALS 11/13/19 06/09/24 History Cyanocobalamin (Vitamin B-12) 1,000 mcg PO DAILY 12/12/22 06/09/24 History [Vitamin B-12] Famotidine [Pepcid] 40 mg PO HS 12/12/22 06/09/24 History Liraglutide [Victoza 3-Luiz] 1.8 mg SQ DAILY 12/12/22 06/09/24 History Potassium Chloride [Klor-Con 8] 8 meq PO DAILY 12/12/22 06/09/24 History Repaglinide [Prandin] 1 mg PO AC-BID 12/12/22 06/09/24 History Aspirin 81 mg PO DAILY tab 12/16/22 06/09/24 Rx Pantoprazole Sodium 40 mg PO AC-BRKFST 01/01/23 06/09/24 History Lovastatin [Mevacor] 20 mg PO HS 05/28/24 06/09/24 History lisinopriL [Zestril] 5 mg PO DAILY 05/28/24 06/09/24 History metFORMIN HCL ER [Glucophage XR] 500 mg PO DAILY 05/28/24 06/09/24 History Ergocalciferol [Vitamin D2 (1250 1,250 mcg PO Q15D 06/09/24 06/09/24 History Mcg = 20209 Iu)] Allergies Allergy/AdvReac Type Severity Reaction Status Date / Time hydromorphone HCl AdvReac RESPIRATORY Verified 06/09/24 06:53 [From Dilaudid] DEPRESSION Physical Exam Vitals: Vital Signs Temp Pulse Resp BP Pulse Ox FiO2 06/09/24 06:31 84 18 178/81 99 06/09/24 06:00 85 16 178/86 100 06/09/24 05:47 100 06/09/24 05:46 105 H 30 H 189/96 97 100 06/09/24 05:38 112 H 29 H 188/136 89 L 06/09/24 04:53 20 06/09/24 04:49 98.3 F 86 20 166/100 94 L Intake and Output 06/08/24 06/09/24 06/09/24 22:59 06:59 14:59 Other: Weight 72.575 kg Results 06/09/24 04:59 06/09/24 04:59 Cardiac Enzymes 06/09/24 06/09/24 Range/Units 04:59 04:59 AST 21 (14-36) U/L Troponin I <0.012 (0.000-0.034) ng/mL Coagulation 06/09/24 Range/Units 04:59 PT 10.7 (10.0-12.5) sec APTT 22.8 (22.0-30.0) sec CBC 06/09/24 Range/Units 04:59 WBC 9.2 (3.8-10.6) k/uL RBC 4.57 (3.80-5.40) m/uL Hgb 10.1 L (11.4-16.0) gm/dL Hct 33.9 L (34.0-46.0) % Plt Count 330 (150-450) k/uL Comprehensive Metabolic Panel 06/09/24 Range/Units 04:59 Sodium 135 L (137-145) mmol/L Potassium 3.8 (3.5-5.1) mmol/L Chloride 101 (98-107) mmol/L Carbon Dioxide 23 (22-30) mmol/L BUN 16 (7-17) mg/dL Creatinine 1.04 (0.52-1.04) mg/dL Glucose 169 H (74-99) mg/dL Calcium 9.0 (8.4-10.2) mg/dL AST 21 (14-36) U/L ALT 13 (4-34) U/L Alkaline Phosphatase 97 (38-126) U/L Total Protein 6.7 (6.3-8.2) g/dL Albumin 3.8 (3.5-5.0) g/dL Current Medications Generic Name Dose Route Start Last Admin Trade Name Freq PRN Reason Stop Dose Admin Aspirin 81 mg 06/09/24 09:00 Aspirin 81 Mg PO DAILY [facility] Atorvastatin Calcium 10 mg 06/09/24 21:00 Atorvastatin 10 Mg Tab PO HS [facility] Clopidogrel Bisulfate 75 mg 06/09/24 09:00 Clopidogrel 75 Mg Tab PO DAILY [facility] Ezetimibe 10 mg 06/09/24 09:00 Ezetimibe 10 Mg Tab PO DAILY [facility] Furosemide 40 mg 06/09/24 09:00 Furosemide 10 Mg/Ml 4 Ml Vial IV Q12HR [facility] Nitroglycerin/Dextrose 50 mg/ 250 mls @ 1.5 mls/hr 06/09/24 07:30 IV Solution IV .Q24H [facility] Protocol 5 MCG/MIN Lisinopril 10 mg 06/09/24 07:30 Lisinopril 10 Mg Tab PO DAILY [facility] Metoprolol Tartrate 100 mg 06/09/24 07:30 Metoprolol Tartrate 50 Mg Tab PO BID-W/MEALS [facility] Nitroglycerin 1 inch 06/10/24 09:00 Nitroglycerin Oint 1 Inch/Gm Packet TOPICAL QID [facility] Potassium Chloride 10 meq 06/09/24 09:00 Potassium Chloride Er 10 Meq Tab.Er.Prt PO DAILY [facility] Intake and Output 06/08/24 06/09/24 06/09/24 22:59 06:59 14:59 Other: Weight 72.575 kg 06/09/24 04:59 06/09/24 04:59
--- NOTE | 2024-06-09 11:38 | P.CNPUL ---
History of Present Illness Consult date: 06/09/24 Requesting physician: Daryl Briceno Reason for consult: dyspnea, hypoxemia, abnormal CXR/CT Chief complaint: Acute onset of shortness of breath History of present illness: This is a very pleasant 78-year-old female patient with a known history of coronary artery disease with with previous coronary artery bypass grafting, peripheral artery disease with previous bilateral iliac stenting and bilateral SFA angioplasty, valvular heart disease, hypertension, hyperlipidemia, mild pulmonary fibrosis and follows with Dr. Eaton in our office for the same. She was recently admitted with chest pain and had undergone cardiac catheterization on May 30, 2024 and was found to have an occluded left main and subtotally occluded RCA. Patent HURT to the LAD and patent SVG to the left circumflex and patent SVG to the RCA. Maximal medical therapy was recommended. An echocardiogram was performed at that time and she was found to have preserved left ventricular systolic function with an ejection fraction 50 to 55% with mild aortic stenosis. She presented here this morning to the emergency department with a rather sudden onset of shortness of breath and palpitations. It woke her from a sound sleep. EKG reveals sinus rhythm with a left bundle branch block. She was found to be hypertensive with a peak blood pressure of 188/136. Chest x-ray reveals mild cardiomegaly with worsening interstitial patchy opacities. Trace pleural effusions. White count 9.2. Hemoglobin 10.1. Platelets 330. Sodium 135. Potassium 3.8. Bicarb 23. BUN 16. Creatinine 1.04. Glucose 169. Troponins are negative x 2. proBNP 3000 180. TSH 0.758. Viral screen is negative. She is seen today in consultation in the emergency department. She is currently on BiPAP 12/6 and 70% FiO2. She is awake and alert. She been initiated on nitroglycerin drip at 20 mcg/min. She is initiated on Lasix at 40 mg IV every 12 hours. She is feeling a bit better since she has been here. She has diuresed 2 L thus far. Renal ultrasound is equivocal for right renal artery stenosis. Heavily calcified atherosclerotic plaque especially mid and distal abdominal aorta continuing to elevate peak systolic flow velocities to 290 cm/s. Underlying significant atherosclerotic aortic stenosis not excluded. Review of Systems REVIEW OF SYSTEMS: CONSTITUTIONAL: Denies any recent significant weight loss or weight gain. EYES: Denies change in vision. EARS, NOSE, MOUTH, THROAT: Denies headaches, denies sore throat. CARDIOVASCULAR: Denies chest pain, positive for palpitations no syncopal epi sodes. RESPIRATORY: Positive for shortness of breath, no cough, congestion or hemoptysis. GASTROINTESTINAL: Denies change in appetite, denies abdominal pain GENITOURINARY: Denies hematuria, denies infections. MUSKULOSKELETAL: Denies pain, denies swelling. INTEGUMENTARY: Denies rash, denies eczema. NEUROLOGICAL: Denies recent memory loss, no recent seizure activity. PSYCHIATRIC: Denies anxiety, denies depression. HEMATOLOGIC/LYMPHATIC: Denies anemia, denies enlarged lymph nodes. Past Medical History Past Medical History: Coronary Artery Disease (CAD), Chest Pain / Angina, Diabetes Mellitus, Eye Disorder, GERD/Reflux, Hearing Disorder / Deafness, Hyper lipidemia, Hypertension, Myocardial Infarction (ND), Myocardial Infarction (non Q-wave), Osteoarthritis (OA), Thyroid Disorder, Vascular Disorder Additional Past Medical History / Comment(s): Peripheral Arterial Disease. Glaucoma, has left eye stent. Bilateral hearing aids. slightly sob at times follows with pulminologist Last Myocardial Infarction Date:: 2001 History of Any Multi-Drug Resistant Organisms: None Reported Past Surgical History: Adenoidectomy, Coronary Bypass/CABG, Heart Catheteri zation, Heart Catheterization With Stent, Tonsillectomy, Tubal Ligation Additional Past Surgical History / Comment(s): Triple bypass in 2019 EXP. LAP 02/2012, STENT TO HEART X1, INFRA RENAL AORTIC STENT, STENTS TO BILATERAL LEGS, AORTOGRAM WITH RUNOFF, bilateral cataracts removed, stent to left eye. Past Anesthesia/Blood Transfusion Reactions: No Reported Reaction Additional Past Anesthesia/Blood Transfusion Reaction / Comment(s): Has never had a blood transfusion. Date of Last Stent Placement:: 2001 Past Psychological History: No Psychological Hx Reported Smoking Status: Former smoker Past Alcohol Use History: Rare Past Drug Use History: None Reported - Past Family History Mother Family Medical History: Dementia Additional Family Medical History / Comment(s): HEART PROBLEMS. Father Family Medical History: Coronary Artery Disease (CAD), Myocardial Infarction (ND) Additional Family Medical History / Comment(s): Her father at age 79 with a myocardial infarction. Medications and Allergies Home Medications Medication Instructions Recorded Confirmed Type Ezetimibe [Zetia] 10 mg PO DAILY 01/31/14 06/09/24 History Clopidogrel [Plavix] 75 mg PO DAILY #30 tab 12/06/18 06/09/24 Rx Empagliflozin [Jardiance] 25 mg PO DAILY 11/13/19 06/09/24 History Levothyroxine Sodium [Synthroid] 112 mcg PO AC-BRKFST 11/13/19 06/09/24 History Metoprolol Tartrate [Lopressor] 100 mg PO BID-W/MEALS 11/13/19 06/09/24 History Cyanocobalamin (Vitamin B-12) 1,000 mcg PO DAILY 12/12/22 06/09/24 History [Vitamin B-12] Famotidine [Pepcid] 40 mg PO HS 12/12/22 06/09/24 History Liraglutide [Victoza 3-Luiz] 1.8 mg SQ DAILY 12/12/22 06/09/24 History Potassium Chloride [Klor-Con 8] 8 meq PO DAILY 12/12/22 06/09/24 History Repaglinide [Prandin] 1 mg PO AC-BID 12/12/22 06/09/24 History Aspirin 81 mg PO DAILY tab 12/16/22 06/09/24 Rx Pantoprazole Sodium 40 mg PO AC-BRKFST 01/01/23 06/09/24 History Lovastatin [Mevacor] 20 mg PO HS 05/28/24 06/09/24 History lisinopriL [Zestril] 5 mg PO DAILY 05/28/24 06/09/24 History metFORMIN HCL ER [Glucophage XR] 500 mg PO DAILY 05/28/24 06/09/24 History Ergocalciferol [Vitamin D2 (1250 1,250 mcg PO Q15D 06/09/24 06/09/24 History Mcg = 36355 Iu)] Allergies Allergy/AdvReac Type Severity Reaction Status Date / Time hydromorphone HCl AdvReac RESPIRATORY Verified 06/09/24 06:53 [From Dilaudid] DEPRESSION Physical Exam Vitals: Vital Signs Temp Pulse Resp BP Pulse Ox FiO2 06/09/24 08:43 81 24 150/71 100 06/09/24 08:16 80 26 H 164/76 100 06/09/24 07:59 70 06/09/24 06:31 84 18 178/81 99 06/09/24 06:00 85 16 178/86 100 06/09/24 05:47 100 06/09/24 05:46 105 H 30 H 189/96 97 100 06/09/24 05:38 112 H 29 H 188/136 89 L 06/09/24 04:53 20 06/09/24 04:49 98.3 F 86 20 166/100 94 L Intake and Output 06/08/24 06/09/24 06/09/24 22:59 06:59 14:59 Intake Total 2.075 Output Total 1999 Balance -1996.925 Intake: Intake, IV Titration 2.075 Amount Nitroglycerin-D5w Pmx 50 2.075 mg In Dextrose/Water 1 250ml.bag @ 5 MCG/MIN 1.5 mls/hr IV .Q24H [facility] Rx#: [id number] Output: Urine 1999 Other: Weight 72.575 kg GENERAL EXAM: Alert, pleasant 78-year-old female, on BiPAP 12/6 and 70% FiO2, fairly comfortable in no apparent distress. HEAD: Normocephalic. EYES: Normal reaction of pupils, equal size. NOSE: Clear with pink turbinates. THROAT: No erythema or exudates. NECK: No masses, no JVD. CHEST: No chest wall deformity. LUNGS: Equal air entry with crackles in the bilateral bases. CVS: S1 and S2 normal with no audible murmur, regular rhythm. ABDOMEN: No hepatosplenomegaly, normal bowel sounds, no guarding or rigidity. SPINE: No scoliosis or deformity SKIN: No rashes CENTRAL NERVOUS SYSTEM: No focal deficits, tone is normal in all 4 extremities. EXTREMITIES: There is no peripheral edema. No clubbing, no cyanosis. Peripheral pulses are intact. Results - Laboratory Findings CBC and BMP: 06/09/24 04:59 06/09/24 04:59 PT/INR, D-dimer PT 10.7 sec (10.0-12.5) 06/09/24 04:59 INR 1.0 (<1.2) 06/09/24 04:59 Abnormal lab findings: Abnormal Labs 06/09/24 06/09/24 04:59 04:59 Hgb 10.1 L Hct 33.9 L MCV 74.1 L MCH 22.2 L MCHC 29.9 L RDW 17.8 H Sodium 135 L Glucose 169 H - Diagnostic Findings Chest x-ray: image reviewed Assessment and Plan Assessment: Acute hypoxemic respiratory failure secondary to an acute episode of pulmonary edema suspect secondary to hypertensive emergency Hypertensive emergency, currently on a nitroglycerin drip at 20 mcg/min Equivocal right renal artery stenosis based on renal artery ultrasound revealing heavily calcified atherosclerotic plaque especially mid and distal abdominal aorta continuing to elevate peak systolic flow velocities at 290 cm/s. Underlying significant atherosclerotic aortic stenosis not excluded. Unable to visualize the left kidney to evaluate left renal vasculature Recent admission for chest pain, cardiac catheterization from 05/30/2024 revealed occluded left main and subtotally occluded RCA with patent HURT to the LAD and patent SVGs to the circumflex and RCA. Significant gradient across the right iliac artery. Maximal medical therapy was recommended. Echocardiogram is revealed preserved left ventricular systolic function with ejection fraction 50 to 55% History of coronary artery disease with previous coronary artery bypass grafting in 2019 Mild pulmonary fibrosis being followed in the outpatient setting Hypertension Hyperlipidemia Diabetes mellitus Hypothyroidism Peripheral arterial disease with previous bilateral iliac stenting and bilateral SFA angioplasty Moderate pulmonary hypertension with RVSP of 49 mmHg History of anemia Plan: The patient was seen and evaluated Imaging, labs and medications reviewed Currently on BiPAP 12/6 and 70% FiO2 Titrate down the FiO2 as tolerated Transition to nasal cannula as tolerated Continue with a nitroglycerin drip for hypertension Continue diuretics Cardiology consulted We will continue to follow and make further recommendations based on her clinical status I have personally seen and examined the patient, performed the documentation and the assessment and plan as written. Number of minutes spent on the visit: 20.
[2024-06-09 12:31] LABS: Glucose,Whole Blood 156 mg/dL (70-110)
[2024-06-09] MEDS: CYANOCOBALAMIN 500 MCG TAB PO SCH (12:37)
[2024-06-09] MEDS: DAPAGLIFLOZIN PROPANEDIOL 10 MG TABLET PO SCH (12:39)
[2024-06-09] MEDS: LEVOTHYROXINE 112 MCG TAB PO SCH (12:39)
[2024-06-09] MEDS: ENOXAPARIN 40 MG/0.4 ML SYRINGE SQ SCH (12:39)
[2024-06-09] MEDS: metFORMIN 500 MG TAB PO SCH (12:40)
[2024-06-09] MEDS: LIRAGLUTIDE 0.6 MG/0.1 ML SQ SCH (12:40)
[2024-06-09] MEDS: PANTOPRAZOLE 40 MG TABLET PO SCH (12:41)
[2024-06-09] MEDS: INSULIN ASPART (NovoLOG) 100 UNIT/ML VIAL SQ SCH (12:42)
[2024-06-09] MEDS: REPAGLINIDE 1 MG TAB PO SCH (12:43)
--- NOTE | 2024-06-09 15:35 | P.HPIM ---
History of Present Illness H&P Date: 06/09/24 Chief Complaint: Could not breathe This is a pleasant 78-year-old patient follows with Dr. Karley Winslow. 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 Recently admitted to the hospital from May 28 through May 30. With chest burning. Underwent cardiac catheterization on May 30. Found to have patent stent and bypass. Patient was cleared by cardiology. 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 [place] her chest pounding. No cough no fever no chills. Short of breath. In the ER overnight patient received IV Lasix. Made good urine. Breathing better. Patient required BiPAP overnight. On 15 L this morning. Patient placed on nitroglycerin drip because of high blood pressure. Review of systems: GEN.: Tired EYES: None HEENT: None NECK: None RESPIRATORY: As above CARDIOVASCULAR: As above GASTROINTESTINAL: None GENITOURINARY: None MUSCULOSKELETAL: Joint pains LYMPHATICS: None HEMATOLOGICAL: None PSYCHIATRY: None NEUROLOGICAL: None Past medical history to include: CAD with stent, diabetes, hypertension, hyperlipidemia, osteoporosis, hypothyroid, PAD with stent Social history: Alcohol occasionally. Lives with her . Smoked for 40 years 2 packs a day stopped in 2003 Past medical history to include: CAD with stent, diabetes, hypertension, hyperlipidemia, osteoporosis, hypothyroid, PAD with stent Social history: Alcohol occasionally. Lives with her . Smoked for 40 years 2 packs a day stopped in 2003 Physical examination: VITAL SIGNS: Afebrile, 81, 24, 150 x 71, 100% on BiPAP on presentation. This morning 15 L GENERAL: Reclining in bed, short of breath EYES: Pupils equal. Conjunctiva normal. HEENT: External appearance of nose and ears normal, oral cavity grossly normal. NECK: JVD raised; masses not palpable. HEART: First and second heart sounds are normal; no edema. LUNGS: Respiratory rate normal; decreased breath sounds. ABDOMEN: Soft, nontender, liver spleen not palpable, no masses palpable. PSYCH: Alert and oriented x3; mood and affect normal. MUSCULOSKELETAL:No Clubbing/cyanosis;muscles-grossly intact. OA NEUROLOGICAL: Cranial nerves grossly intact; no facial asymmetry, power and sensation grossly intact. LYMPHATICS: No lymph nodes palpable in the axilla and neck INVESTIGATIONS, reviewed in the clinical context: June 09, 2024: White count 9.2 hemoglobin 10.1 platelets 330 sodium 135 potassium 3.8 creatinine 1.04 Troponin I less than 0.012, 0.018, 0.043 proBNP 3180 TSH 0.758 Influenza type A, type B, RSV, COVID-19: Not detected EKG tracing personally reviewed by me-sinus rhythm. Left bundle bessie block. Chest x-ray film personally reviewed by me-cardiomegaly. Pulm edema Renal artery duplex: Heavily calcified atherosclerotic plaque especially mid and distal abdominal aorta Limited visualization of the left kidney. Velocities in the right kidney renal artery elevated but the ratio appears normal. Previous investigations 2D echocardiogram [May 31, 2024] EF 50 to 55% moderate pulmonary hypertension moderate mitral annular calcification mild to moderate concentric LVH Cardiac catheterization [May 30, 2024]: Occluded left main and subtotally occluded RCA. Patent HURT to LAD and patent SVG to left circumflex and patent SVG to RCA. Significant gradient across right iliac artery. Assessment and plan: -Acute flash pulmonary edema, from underlying diastolic dysfunction EF 50 to 55%, causing acute hypoxic respiratory failure IV Lasix. Fluid restriction. 2D echo was done recently. -Acute severe hypoxic respiratory failure secondary to pulm edema Initially on BiPAP, this morning on 15 L nasal cannula. Taper down oxygen. -Accelerated hypertension Patient placed on nitroglycerin drip by cardiology today -Positive troponin from underlying acute CHF. No clinical evidence of ACS -CAD with a prior history of stent and bypass Aspirin. Plavix. Lipitor. Lopressor. Cardiac catheterization on May 30 did not show any stenosis. Patent stent and bypass. -Secondary pulmonary hypertension due to COPD and diastolic CHF -Interstitial lung disease. -COPD in a previous smoker DuoNeb -PAD with prior intervention Aspirin, Plavix, Zetia -Diabetes mellitus type 2, on oral hypoglycemic Jardiance, metformin, and Victoza, Prandin. Follow Accu-Cheks and sliding scale -Primary osteoarthritis Tylenol when necessary -Possiblechronic kidney disease, stage III likely nephrosclerosis Patient's creatinine was 0.81 and December 2023. Recent renal ultrasound unremarkable. UA negative. Consult nephrology -Hyperlipidemia Lipitor -Hypothyroid Synthroid -Essential hypertension Lisinopril, Lopressor -Full code Care was discussed with the patient. Cardiology consulted. Past Medical History Past Medical History: Coronary Artery Disease (CAD), Chest Pain / Angina, Diabetes Mellitus, Eye Disorder, GERD/Reflux, Hearing Disorder / Deafness, Hyperlipidemia, Hypertension, Myocardial Infarction ([place]), Myocardial Infarction (non Q-wave), Osteoarthritis (OA), Thyroid Disorder, Vascular Disorder Additional Past Medical History / Comment(s): Peripheral Arterial Disease. Glaucoma, has left eye stent. Bilateral hearing aids. slightly sob at times follows with pulminologist Last Myocardial Infarction Date:: 2001 History of Any Multi-Drug Resistant Organisms: None Reported Past Surgical History: Adenoidectomy, Coronary Bypass/CABG, Heart Catheterization, Heart Catheterization With Stent, Tonsillectomy, Tubal Ligation Additional Past Surgical History / Comment(s): Triple bypass in 2019 EXP. LAP 02/2012, STENT TO HEART X1, INFRA RENAL AORTIC STENT, STENTS TO BILATERAL LEGS, AORTOGRAM WITH RUNOFF, bilateral cataracts removed, stent to left eye. Past Anesthesia/Blood Transfusion Reactions: No Reported Reaction Additional Past Anesthesia/Blood Transfusion Reaction / Comment(s): Has never had a blood transfusion. Date of Last Stent Placement:: 2001 Past Psychological History: No Psychological Hx Reported Smoking Status: Former smoker Past Alcohol Use History: Rare Past Drug Use History: None Reported - Past Family History Mother Family Medical History: Dementia Additional Family Medical History / Comment(s): HEART PROBLEMS. Father Family Medical History: Coronary Artery Disease (CAD), Myocardial Infarction ([place]) Additional Family Medical History / Comment(s): Her father at age 79 with a myocardial infarction. Medications and Allergies Home Medications Medication Instructions Recorded Confirmed Type Ezetimibe [Zetia] 10 mg PO DAILY 01/31/14 06/09/24 History Clopidogrel [Plavix] 75 mg PO DAILY #30 tab 12/06/18 06/09/24 Rx Empagliflozin [Jardiance] 25 mg PO DAILY 11/13/19 06/09/24 History Levothyroxine Sodium [Synthroid] 112 mcg PO AC-BRKFST 11/13/19 06/09/24 History Metoprolol Tartrate [Lopressor] 100 mg PO BID-W/MEALS 11/13/19 06/09/24 History Cyanocobalamin (Vitamin B-12) 1,000 mcg PO DAILY 12/12/22 06/09/24 History [Vitamin B-12] Famotidine [Pepcid] 40 mg PO HS 12/12/22 06/09/24 History Liraglutide [Victoza 3-Luiz] 1.8 mg SQ DAILY 12/12/22 06/09/24 History Potassium Chloride [Klor-Con 8] 8 meq PO DAILY 12/12/22 06/09/24 History Repaglinide [Prandin] 1 mg PO AC-BID 12/12/22 06/09/24 History Aspirin 81 mg PO DAILY tab 12/16/22 06/09/24 Rx Pantoprazole Sodium 40 mg PO AC-BRKFST 01/01/23 06/09/24 History Lovastatin [Mevacor] 20 mg PO HS 05/28/24 06/09/24 History lisinopriL [Zestril] 5 mg PO DAILY 05/28/24 06/09/24 History metFORMIN HCL ER [Glucophage XR] 500 mg PO DAILY 05/28/24 06/09/24 History Ergocalciferol [Vitamin D2 (1250 1,250 mcg PO Q15D 06/09/24 06/09/24 History Mcg = 38403 Iu)] Allergies Allergy/AdvReac Type Severity Reaction Status Date / Time hydromorphone HCl AdvReac RESPIRATORY Verified 06/09/24 06:53 [From Dilaudid] DEPRESSION Physical Exam Vitals: Vital Signs Temp Pulse Resp BP Pulse Ox FiO2 06/09/24 08:43 81 24 150/71 100 06/09/24 08:16 80 26 H 164/76 100 06/09/24 07:59 70 06/09/24 06:31 84 18 178/81 99 06/09/24 06:00 85 16 178/86 100 06/09/24 05:47 100 06/09/24 05:46 105 H 30 H 189/96 97 100 06/09/24 05:38 112 H 29 H 188/136 89 L 06/09/24 04:53 20 06/09/24 04:49 98.3 F 86 20 166/100 94 L Intake and Output 06/08/24 06/09/24 06/09/24 22:59 06:59 14:59 Intake Total 2.075 Balance 2.075 Intake: Intake, IV Titration 2.075 Amount Nitroglycerin-D5w Pmx 50 2.075 mg In Dextrose/Water 1 250ml.bag @ 5 MCG/MIN 1.5 mls/hr IV .Q24H [facility] Rx#: [id number] Other: Weight 72.575 kg Results CBC & Chem 7: 06/09/24 04:59 06/09/24 04:59 Labs: Abnormal Lab Results - Last 24 Hours (Table) 06/09/24 06/09/24 Range/Units 04:59 04:59 Hgb 10.1 L (11.4-16.0) gm/dL Hct 33.9 L (34.0-46.0) % MCV 74.1 L (80.0-100.0) fL MCH 22.2 L (25.0-35.0) pg MCHC 29.9 L (31.0-37.0) g/dL RDW 17.8 H (11.5-15.5) % Sodium 135 L (137-145) mmol/L Glucose 169 H (74-99) mg/dL
[2024-06-09] MEDS: IPRATROPIUM-ALBUTEROL 3 ML NEB INHALATION SCH (16:30)
[2024-06-09 17:37] LABS: Glucose,Whole Blood 165 mg/dL (70-110)
[2024-06-09 19:58] LABS: Glucose,Whole Blood 105 mg/dL (70-110)
[2024-06-09] MEDS: FAMOTIDINE 20 MG TAB PO SCH (20:06)
[2024-06-09] MEDS: ATORVASTATIN 10 MG TAB PO SCH (20:06)
[2024-06-09] MEDS ORDERED: Potassium Replacement Protocol 1 EACH MISC MISCELLANE PRN (20:43)
[2024-06-09] MEDS: POTASSIUM CHLORIDE ER 20 MEQ TAB.ER PO SCH (20:55)
[2024-06-09] MEDS ORDERED: FAMOTIDINE 20 MG TAB PO SCH (21:00)
[2024-06-10 04:43] LABS: Anisocytosis Slight; Basophils # (A) 0.1 k/uL (0-0.2); Basophils % (A) 1 %; Eosinophils # (A) 0.2 k/uL (0-0.7); Eosinophils % (A) 2 %; HCT 33.4 % (34.0-46.0); HGB 9.9 gm/dL (11.4-16.0); Hypochromasia Marked; Lymphocytes % (A) 24 %; MCH 21.8 pg (25.0-35.0); MCHC 29.6 g/dL (31.0-37.0); MCV 73.8 fL (80.0-100.0); Microcytosis Moderate; Monocytes # (A) 0.4 k/uL (0-1.0); Monocytes % (A) 5 %; Neutrophils # (A) 5.6 k/uL (1.3-7.7); Neutrophils % (A) 67 %; Platelet Count 331 k/uL (150-450); RBC 4.52 m/uL (3.80-5.40); RDW 17.5 % (11.5-15.5); WBC 8.4 k/uL (3.8-10.6)
[2024-06-10 05:00] LABS: African American GFR (CKD) 48 (>60 ml/min/1.73 sqM); Anion Gap 10 mmol/L; Blood Urea Nitrogen 23 mg/dL (7-17); Calcium 9.2 mg/dL (8.4-10.2); Carbon Dioxide 29 mmol/L (22-30); Chloride 100 mmol/L (98-107); Glucose 89 mg/dL (74-99); Non-African American GFR(CKD) 42 (>60 ml/min/1.73 sqM); Sodium 139 mmol/L (137-145)
[2024-06-10 06:38] LABS: Glucose,Whole Blood 129 mg/dL (70-110)
--- NOTE | 2024-06-10 06:55 | XR ---
EXAMINATION TYPE: XR chest 1V portable DATE OF EXAM: 06/10/2024 6:03 AM CLINICAL INDICATION: Female, 78 years old with history of shortness of breath; H COMPARISON: Chest radiographs from 06/09/2024 TECHNIQUE: XR chest 1V portable Frontal view of the chest. FINDINGS: Lungs/Pleura: Improved aeration of lungs on today's exam with persistent airspace opacities scattered throughout the lungs. No evidence of pneumothorax or large pleural effusion. Pulmonary vascularity: Pulmonary vascular congestion. Heart/mediastinum: Cardiomediastinal silhouette is enlarged. Musculoskeletal: No acute osseous pathology. IMPRESSION: Improved aeration with persistent evidence of congestive heart failure.
[2024-06-10] MEDS ORDERED: NITROGLYCERIN OINT 1 INCH/GM PACKET TOPICAL SCH (09:00)
--- NOTE | 2024-06-10 10:07 | P.NPCON ---
History of Present Illness - Reason for Consult acute renal failure - History of Present Illness Reason for consultation: Acute kidney injury History of present illness: Patient is a 78-year-old female seen in renal consultation for acute kidney injury. Patient's baseline creatinine is near 1 and is up to 1.23 today. Patient came to the hospital due to chest pain and palpitations. Patient says she woke up in the morning and felt her chest throbbing. She also felt short of breath. Patient does have history of coronary artery disease with a cardiac stent and then subsequent CABG. She also has history of peripheral arterial disease with stenting. She does have history of diabetes. Patient was on nitroglycerin drip but is now discontinued. Blood pressure this morning is actually on the lower side at 90/52. She denies use of nonsteroidals. Denies family or personal history of kidney disease. Renal duplex ultrasound showed normal-sized kidneys without hydronephrosis. Chest x-ray suggestive of fluid overload. Echocardiogram from this month showed ejection fraction of 50 to 55% with moderate pulmonary hypertension. No gross hematuria or dysuria. On 2 L nasal cannula. Vital signs are stable. General: No acute distress. HEENT: Head exam is unremarkable. On nasal cannula. LUNGS: No audible rhonchi or wheezes. HEART: Rate and Rhythm are regular. Cut the ABDOMEN: Nontender. EXTREMITITES: No edema. Past Medical History Past Medical History: Coronary Artery Disease (CAD), Chest Pain / Angina, Diabetes Mellitus, Eye Disorder, GERD/Reflux, Hearing Disorder / Deafness, Hyperlipidemia, Hypertension, Myocardial Infarction ([place]), Myocardial Infarction (non Q-wave), Osteoarthritis (OA), Thyroid Disorder, Vascular Disorder Additional Past Medical History / Comment(s): Peripheral Arterial Disease. Glaucoma, has left eye stent. Bilateral hearing aids. slightly sob at times follows with pulminologist Last Myocardial Infarction Date:: 2001 History of Any Multi-Drug Resistant Organisms: None Reported Past Surgical History: Adenoidectomy, Coronary Bypass/CABG, Heart Catheterization, Heart Catheterization With Stent, Tonsillectomy, Tubal Ligation Additional Past Surgical History / Comment(s): Triple bypass in 2019 EXP. LAP 02/2012, STENT TO HEART X1, INFRA RENAL AORTIC STENT, STENTS TO BILATERAL LEGS, AORTOGRAM WITH RUNOFF, bilateral cataracts removed, stent to left eye. Past Anesthesia/Blood Transfusion Reactions: No Reported Reaction Additional Past Anesthesia/Blood Transfusion Reaction / Comment(s): Has never had a blood transfusion. Date of Last Stent Placement:: 2001 Past Psychological History: No Psychological Hx Reported Smoking Status: Former smoker Past Alcohol Use History: Rare Past Drug Use History: None Reported - Past Family History Mother Family Medical History: Dementia Additional Family Medical History / Comment(s): HEART PROBLEMS. Father Family Medical History: Coronary Artery Disease (CAD), Myocardial Infarction ([place]) Additional Family Medical History / Comment(s): Her father at age 79 with a myocardial infarction. Medications and Allergies Home Medications Medication Instructions Recorded Confirmed Type Ezetimibe [Zetia] 10 mg PO DAILY 01/31/14 06/09/24 History Clopidogrel [Plavix] 75 mg PO DAILY #30 tab 12/06/18 06/09/24 Rx Empagliflozin [Jardiance] 25 mg PO DAILY 11/13/19 06/09/24 History Levothyroxine Sodium [Synthroid] 112 mcg PO AC-BRKFST 11/13/19 06/09/24 History Metoprolol Tartrate [Lopressor] 100 mg PO BID-W/MEALS 11/13/19 06/09/24 History Cyanocobalamin (Vitamin B-12) 1,000 mcg PO DAILY 12/12/22 06/09/24 History [Vitamin B-12] Famotidine [Pepcid] 40 mg PO HS 12/12/22 06/09/24 History Liraglutide [Victoza 3-Luiz] 1.8 mg SQ DAILY 12/12/22 06/09/24 History Potassium Chloride [Klor-Con 8] 8 meq PO DAILY 12/12/22 06/09/24 History Repaglinide [Prandin] 1 mg PO AC-BID 12/12/22 06/09/24 History Aspirin 81 mg PO DAILY tab 12/16/22 06/09/24 Rx Pantoprazole Sodium 40 mg PO AC-BRKFST 01/01/23 06/09/24 History Lovastatin [Mevacor] 20 mg PO HS 05/28/24 06/09/24 History lisinopriL [Zestril] 5 mg PO DAILY 05/28/24 06/09/24 History metFORMIN HCL ER [Glucophage XR] 500 mg PO DAILY 05/28/24 06/09/24 History Ergocalciferol [Vitamin D2 (1250 1,250 mcg PO Q15D 06/09/24 06/09/24 History Mcg = [id number] Iu)] Allergies Allergy/AdvReac Type Severity Reaction Status Date / Time hydromorphone HCl AdvReac RESPIRATORY Verified 06/09/24 06:53 [From Dilaudid] DEPRESSION Physical Exam Vitals: Vital Signs Temp Pulse Resp BP Pulse Ox FiO2 06/10/24 08:00 68 20 90/52 06/10/24 07:44 73 06/10/24 07:34 70 06/10/24 07:30 97.9 F 72 13 119/54 06/10/24 07:00 67 15 133/52 06/10/24 06:30 67 16 132/53 06/10/24 06:00 66 16 126/44 06/10/24 05:30 64 14 130/55 06/10/24 05:00 67 12 130/58 06/10/24 04:30 64 11 L 125/65 97 06/10/24 04:00 98.6 F 67 17 109/96 96 06/10/24 03:30 67 15 142/63 96 06/10/24 03:00 72 18 122/56 97 06/10/24 02:30 72 16 122/55 97 06/10/24 02:00 67 16 122/52 99 06/10/24 01:30 66 17 130/56 95 06/10/24 01:00 68 17 125/47 96 06/10/24 00:30 70 12 113/52 96 06/10/24 00:07 70 17 113/52 98 06/10/24 00:00 98.5 F 63 12 119/49 99 06/09/24 23:30 63 13 118/56 99 06/09/24 23:00 71 16 129/53 96 06/09/24 22:30 71 17 122/61 98 06/09/24 22:00 70 17 129/58 97 06/09/24 21:30 70 18 130/67 98 06/09/24 21:00 68 11 L 110/47 96 06/09/24 20:30 66 16 135/57 95 06/09/24 20:01 68 06/09/24 20:00 70 12 127/56 99 06/09/24 19:56 69 06/09/24 19:30 68 16 139/53 96 06/09/24 19:00 71 16 129/55 97 06/09/24 18:30 77 20 136/55 97 06/09/24 18:00 98.7 F 79 16 138/60 97 06/09/24 17:00 78 20 115/85 98 06/09/24 16:37 68 06/09/24 16:30 71 06/09/24 12:45 78 18 129/64 97 06/09/24 11:38 40 06/09/24 11:30 114/55 Intake and Output 06/09/24 06/10/24 06/10/24 22:59 06:59 14:59 Intake Total 594.775 0.825 290 Output Total 425 700 110 Balance 169.775 -699.175 180 Intake: Intake, IV Titration 14.775 0.825 Amount Nitroglycerin-D5w Pmx 50 14.775 0.825 mg In Dextrose/Water 1 250ml.bag @ 5 MCG/MIN 1.5 mls/hr IV .Q24H [facility] Rx#: [id number] Oral 580 290 Output: Urine 425 700 110 Other: Voiding Method Indwelling Catheter Indwelling Catheter Indwelling Catheter Weight 73.3 kg 72.7 kg Results - Lab Results Most recent lab results Calcium 9.2 mg/dL (8.4-10.2) 06/10/24 03:52 Magnesium 1.7 mg/dL (1.6-2.3) 06/09/24 04:59 06/10/24 03:52 06/10/24 03:52 Assessment and Plan Plan: Assessment: 1. Acute kidney injury secondary to vasomotor nephropathy from cardiorenal syndrome. Baseline creatinine near 1 and is 1.23 today. UA dated May 28, 2024 showed no proteinuria. No hydronephrosis noted on kidney ultrasound. 2. Acute hypoxic respiratory failure. 3. Acute on chronic diastolic CHF with moderate pulmonary hypertension. 4. Coronary artery disease status post stenting and CABG. Recent NSTEMI. Cardiology following. 5. Peripheral arterial disease status post bilateral iliac stenting. 6. Benign hypertension. 7. Diabetes mellitus. Plan: Decrease dose of lisinopril to 5 mg daily. Hold for systolic blood pressure less than 100. Maintain IV Lasix for now. Maintain Farxiga. Wean FiO2. Avoid nephrotoxins. Continue to monitor renal function and urine output. Thank you for the consultation. I will continue to follow the patient with you during her hospital stay.
--- NOTE | 2024-06-10 10:27 | P.PN ---
Subjective Progress Note Date: 06/10/24 Principal diagnosis: Acute hypoxic respiratory failure secondary to pulmonary edema secondary to hypertensive emergency. This is a very pleasant 78-year-old female patient with a known history of coronary artery disease with with previous coronary artery bypass grafting, peripheral artery disease with previous bilateral iliac stenting and bilateral SFA angioplasty, valvular heart disease, hypertension, hyperlipidemia, mild pulmonary fibrosis and follows with Dr. Eaton in our office for the same. She was recently admitted with chest pain and had undergone cardiac catheterization on May 30, 2024 and was found to have an occluded left main and subtotally occluded RCA. Patent HURT to the LAD and patent SVG to the left circumflex and patent SVG to the RCA. Maximal medical therapy was recommended. An echocardiogram was performed at that time and she was found to have preserved left ventricular systolic function with an ejection fraction 50 to 55% with mild aortic stenosis. She presented here this morning to the emergency department with a rather sudden onset of shortness of breath and palpitations. It woke her from a sound sleep. EKG reveals sinus rhythm with a left bundle branch block. She was found to be hypertensive with a peak blood pressure of 188/136. Chest x-ray reveals mild cardiomegaly with worsening interstitial patchy opacities. Trace pleural effusions. White count 9.2. Hemoglobin 10.1. Platelets 330. Sodium 135. Potassium 3.8. Bicarb 23. BUN 16. Creatinine 1.04. Glucose 169. Troponins are negative x 2. proBNP 3000 180. TSH 0.758. Viral screen is negative. She is seen today in consultation in the emergency department. She is currently on BiPAP 12/6 and 70% FiO2. She is awake and alert. She been initiated on nitroglycerin drip at 20 mcg/min. She is initiated on Lasix at 40 mg IV every 12 hours. She is feeling a bit better since she has been here. She has diuresed 2 L thus far. Renal ultrasound is equivocal for right renal artery stenosis. Heavily calcified atherosclerotic plaque especially mid and distal abdominal aorta continuing to elevate peak systolic flow velocities to 290 cm/s. Underlying significant atherosclerotic aortic stenosis not excluded. Patient was reevaluated today on 06/10/2024, I saw this patient yesterday in the ER for shortness of breath secondary to acute pulmonary edema secondary to hypertensive emergency. Patient was also seen by cardiology, placed on nitroglycerin drip, and she was sent to the ICU. Earlier this morning her nitroglycerin has been discontinued, her blood pressure seems to be better controlled, patient received few doses of Lasix overnight, and clinically she is feeling much better, breathing easier, chest x-ray showed improvement in her pulmonary edema. No cough no wheezing no chest pain. No fever no chills.WBC count is 8.4 hemoglobin 9.9 basic metabolic profile is normal renal profile showed a BUN of 23 creatinine 1.23 slightly worse compared to yesterday continues to have good urine output, responding well to diuretics. Seen by nephrology on consultation for acute kidney injury which was felt to be vasomotor nephropathy from cardiorenal syndrome. No hydronephrosis noted on ultrasound. Referral is down to 5 mg daily, patient is on fark [employer], and nephrotoxins are being avoided Objective - Vital Signs Vital signs: Vital Signs Temp 97.9 F 06/10/24 07:30 Pulse 68 06/10/24 08:00 Resp 20 06/10/24 08:00 BP 90/52 06/10/24 08:00 Pulse Ox 97 06/10/24 04:30 FiO2 40 06/09/24 11:38 Intake & Output 06/09/24 06/10/24 06/10/24 18:59 06:59 18:59 Intake Total 32.575 588.800 290 Output Total 2040 1085 110 Balance -2007.425 -496.200 180 Weight 72.7 kg Intake: Intake, IV Titration 32.575 8.800 Amount Nitroglycerin-D5w Pmx 50 32.575 8.800 mg In Dextrose/Water 1 250ml.bag @ 5 MCG/MIN 1.5 mls/hr IV .Q24H [facility] Rx#: [id number] Oral 580 290 Output: Urine 2040 1085 110 Other: Voiding Method Indwelling Catheter Indwelling Catheter Indwelling Catheter - Exam GENERAL EXAM: Ill 78-year-old female on 2 L nasal cannula, not in distress feeling much better today compared to yesterday HEAD: Normocephalic. EYES: Normal reaction of pupils, equal size. NOSE: Clear with pink turbinates. THROAT: No erythema or exudates. NECK: No masses, no JVD. CHEST: No chest wall deformity. LUNGS: Minimal crackles at the bases no rhonchi no wheezes CVS: S1 and S2 normal with no audible murmur, regular rhythm. ABDOMEN: No hepatosplenomegaly, normal bowel sounds, no guarding or rigidity. SKIN: No rashes CENTRAL NERVOUS SYSTEM: Alert and oriented x 3 no gross focal neurologic deficit EXTREMITIES: No clubbing edema or cyanosis - Labs CBC & Chem 7: 06/10/24 03:52 06/10/24 03:52 Labs: Abnormal Lab Results - Last 24 Hours (Table) 06/09/24 06/09/24 06/09/24 Range/Units 11:24 12:29 17:36 Hgb (11.4-16.0) gm/dL Hct (34.0-46.0) % MCV (80.0-100.0) fL MCH (25.0-35.0) pg MCHC (31.0-37.0) g/dL RDW (11.5-15.5) % BUN (7-17) mg/dL Creatinine (0.52-1.04) mg/dL POC Glucose (mg/dL) 156 H 165 H (70-110) mg/dL Hemoglobin A1c (<=6.0) % Troponin I 0.043 H* (0.000-0.034) ng/mL 06/10/24 06/10/24 06/10/24 Range/Units 03:52 03:52 03:52 Hgb 9.9 L (11.4-16.0) gm/dL Hct 33.4 L (34.0-46.0) % MCV 73.8 L (80.0-100.0) fL MCH 21.8 L (25.0-35.0) pg MCHC 29.6 L (31.0-37.0) g/dL RDW 17.5 H (11.5-15.5) % BUN 23 H (7-17) mg/dL Creatinine 1.23 H (0.52-1.04) mg/dL POC Glucose (mg/dL) (70-110) mg/dL Hemoglobin A1c 8.3 H (<=6.0) % Troponin I (0.000-0.034) ng/mL 06/10/24 Range/Units 06:36 Hgb (11.4-16.0) gm/dL Hct (34.0-46.0) % MCV (80.0-100.0) fL MCH (25.0-35.0) pg MCHC (31.0-37.0) g/dL RDW (11.5-15.5) % BUN (7-17) mg/dL Creatinine (0.52-1.04) mg/dL POC Glucose (mg/dL) 129 H (70-110) mg/dL Hemoglobin A1c (<=6.0) % Troponin I (0.000-0.034) ng/mL Assessment and Plan Assessment: Impression:Acute hypoxemic respiratory failure secondary to an acute episode of pulmonary edema secondary to hypertensive emergency Hypertensive emergency, patient is off nitroglycerin today Recent admission for chest pain, cardiac catheterization from 05/30/2024 revealed occluded left main and subtotally occluded RCA with patent HURT to the LAD and patent SVGs to the circumflex and RCA. Significant gradient across the right iliac artery. Maximal medical therapy was recommended. Echocardiogram is revealed preserved left ventricular systolic function with ejection fraction 50 to 55% History of coronary artery disease with previous coronary artery bypass grafting in 2019 Mild pulmonary fibrosis being followed in the outpatient setting Hypertension Hyperlipidemia Diabetes mellitus Hypothyroidism Peripheral arterial disease with previous bilateral iliac stenting and bilateral SFA angioplasty Moderate pulmonary hypertension with RVSP of 49 mmHg History of anemia Acute kidney injury, likely secondary to hypertensive emergency, or cardiorenal in nature Recommendation: Chest x-ray reviewed this morning clearly showing improvement not to mention the patient is showing clinical improvement in addition to her chest x-ray improvement Continue diuretics Continue to monitor the blood pressure closely, patient is off nitroglycerin now. Continue to monitor renal status profile Titrate FiO2 accordingly she is now on 2 L nasal cannula yesterday the patient required BiPAP 09/01/70% Transfer patient out of the ICU to a monitored bed on the cardiac floor today Possible discharge planning in the next 24 to 48 hours. Will continue to follow. Time with Patient: Less than 30
[2024-06-10 10:42] VITALS: BMI 29.2
--- NOTE | 2024-06-10 11:11 | P.PN ---
Subjective Progress Note Date: 06/10/24 The patient was seen and evaluated this morning which is doing much better with the shortness of breath has improved significantly. No pain in the chest. The renal duplex study still pending. As [id number] the pressure has been on the low side and the dose of lisinopril will be decreased by the nephrology service which I would agree on. Examination is remarkable for regular numbness systolic murmur and clear breathing sounds bilaterally and no edema was noted in the lower EXTR Assessment Hypertension emergency Acute hypoxic respiratory failure CHF exacerbation with diastolic dysfunction Coronary artery disease Peripheral arterial disease Multiple comorbid conditions Plan Continue the current medical regimen Decrease the dose of lisinopril Continue IV diuretics for additional 24 hours Follow-up with the renal duplex study Objective - Vital Signs Vital signs: Vital Signs Temp 97.9 F 06/10/24 07:30 Pulse 64 06/10/24 11:00 Resp 06/10/24 11:00 BP 145/56 06/10/24 11:00 Pulse Ox 97 06/10/24 11:00 FiO2 40 06/09/24 11:38 Intake & Output 06/09/24 06/10/24 06/10/24 18:59 06:59 18:59 Intake Total 32.575 588.800 290 Output Total 2040 1085 110 Balance -2007.425 -496.200 180 Weight 72.7 kg 72.7 kg Intake: Intake, IV Titration 32.575 8.800 Amount Nitroglycerin-D5w Pmx 50 32.575 8.800 mg In Dextrose/Water 1 250ml.bag @ 5 MCG/MIN 1.5 mls/hr IV .Q24H [facility] Rx#: [id number] Oral 580 290 Output: Urine 2040 1085 110 Other: Voiding Method Indwelling Catheter Indwelling Catheter Indwelling Catheter - Labs CBC & Chem 7: 06/10/24 03:52 06/10/24 03:52 Labs: Abnormal Lab Results - Last 24 Hours (Table) 06/09/24 06/09/24 06/09/24 Range/Units 11:24 12:29 17:36 Hgb (11.4-16.0) gm/dL Hct (34.0-46.0) % MCV (80.0-100.0) fL MCH (25.0-35.0) pg MCHC (31.0-37.0) g/dL RDW (11.5-15.5) % BUN (7-17) mg/dL Creatinine (0.52-1.04) mg/dL POC Glucose (mg/dL) 156 H 165 H (70-110) mg/dL Hemoglobin A1c (<=6.0) % Troponin I 0.043 H* (0.000-0.034) ng/mL 06/10/24 06/10/24 06/10/24 Range/Units 03:52 03:52 03:52 Hgb 9.9 L (11.4-16.0) gm/dL Hct 33.4 L (34.0-46.0) % MCV 73.8 L (80.0-100.0) fL MCH 21.8 L (25.0-35.0) pg MCHC 29.6 L (31.0-37.0) g/dL RDW 17.5 H (11.5-15.5) % BUN 23 H (7-17) mg/dL Creatinine 1.23 H (0.52-1.04) mg/dL POC Glucose (mg/dL) (70-110) mg/dL Hemoglobin A1c 8.3 H (<=6.0) % Troponin I (0.000-0.034) ng/mL 06/10/24 Range/Units 06:36 Hgb (11.4-16.0) gm/dL Hct (34.0-46.0) % MCV (80.0-100.0) fL MCH (25.0-35.0) pg MCHC (31.0-37.0) g/dL RDW (11.5-15.5) % BUN (7-17) mg/dL Creatinine (0.52-1.04) mg/dL POC Glucose (mg/dL) 129 H (70-110) mg/dL Hemoglobin A1c (<=6.0) % Troponin I (0.000-0.034) ng/mL
[2024-06-10 12:11] LABS: Glucose,Whole Blood 146 mg/dL (70-110)
[2024-06-10 16:46] LABS: Glucose,Whole Blood 212 mg/dL (70-110)
--- NOTE | 2024-06-10 17:53 | P.PN ---
Progress Note - Text Progress Note Date: 06/10/24 Chief Complaint: Could not breathe This is a pleasant 78-year-old patient follows with Dr. Karley Winslow. [place] Dinesh Jeffries Chronic stable medical conditions include CAD with stent, PAD with peripheral stents, diabetes, hypertension, hyperlipidemia, osteoarthritis,. Recently admitted to the hospital from May 28 through May 30. With chest burning. Underwent cardiac catheterization on May 30. Found to have patent stent and bypass. Patient was cleared by cardiology. Patient now presents when she woke up nurse aide today and could not breathe. [place] her chest pounding. No cough no fever no chills. Short of breath. In the ER overnight patient received IV Lasix. Made good urine. Breathing better. Patient required BiPAP overnight. On 15 L this morning. Patient placed on nitroglycerin drip because of high blood pressure. June 10: ICU. Patient moved to the ICU last night. Breathing better. Now down to room air pulse ox. visiting. Feeling better. Nitroglycerin drip was discontinued this morning. Had the patient sit up in a chair. Remains on IV Lasix. Dose of lisinopril cut back. Chest x-ray from today shows pulm edema though some improvement Active Medications Albuterol/Ipratropium (Ipratropium-Albuterol 3 Ml Neb) 3 ml INHALATION RT-QID [facility] Last Admin: 06/10/24 15:24 Dose: 3 ml Aspirin (Aspirin 81 Mg) 81 mg PO DAILY [facility] Last Admin: 06/10/24 09:59 Dose: 81 mg Atorvastatin Calcium (Atorvastatin 10 Mg Tab) 10 mg PO HS [facility] Last Admin: 06/09/24 20:06 Dose: 10 mg Clopidogrel Bisulfate (Clopidogrel 75 Mg Tab) 75 mg PO DAILY [facility] Last Admin: 06/10/24 09:59 Dose: 75 mg Cyanocobalamin (Cyanocobalamin 500 Mcg Tab) 1,000 mcg PO DAILY [facility] Last Admin: 06/10/24 10:00 Dose: 1,000 mcg Dapagliflozin (Dapagliflozin Propanediol 10 Mg Tablet) 10 mg PO DAILY [facility] Last Admin: 06/10/24 09:59 Dose: 10 mg Dextrose/Water (Dextrose 50% Syringe 50 Ml) 25 ml IVP PER PROTOCOL PRN; Protocol PRN Reason: Hypoglycemia Dextrose/Water (Dextrose 50% Syringe 50 Ml) 50 ml IVP PER PROTOCOL PRN; Protocol PRN Reason: Hypoglycemia Ezetimibe (Ezetimibe 10 Mg Tab) 10 mg PO DAILY [facility] Last Admin: 06/10/24 09:59 Dose: 10 mg Enoxaparin Sodium (Enoxaparin 30 Mg/0.3 Ml Syringe) 30 mg SQ DAILY [facility] Famotidine (Famotidine 20 Mg Tab) 20 mg PO HS [facility] Last Admin: 06/09/24 20:06 Dose: 20 mg Furosemide (Furosemide 10 Mg/Ml 4 Ml Vial) 40 mg IV Q12HR [facility] Last Admin: 06/10/24 10:00 Dose: 40 mg Nitroglycerin/Dextrose 50 mg/ (IV Solution) 250 mls @ 1.5 mls/hr IV .Q24H [facility]; Protocol Last Admin: 06/10/24 07:33 Dose: Not Given Insulin Aspart (Insulin Aspart (Novolog) 100 Unit/Ml Vial) 0 unit SQ AC-TID [facility]; Protocol Last Admin: 06/10/24 17:02 Dose: 4 unit Levothyroxine Sodium (Levothyroxine 112 Mcg Tab) 112 mcg PO 0630 [facility] Last Admin: 06/10/24 05:45 Dose: 112 mcg Lisinopril (Lisinopril 5 Mg Tab) 5 mg PO DAILY [facility] Metformin HCl (Metformin 500 Mg Tab) 250 mg PO BID [facility] Last Admin: 06/10/24 09:59 Dose: 250 mg Metoprolol Tartrate (Metoprolol Tartrate 50 Mg Tab) 100 mg PO BID-W/MEALS [facility] Last Admin: 06/10/24 17:02 Dose: 100 mg Miscellaneous Information (Potassium Replacement Protocol 1 Each Misc) 1 each MISCELLANE DAILY PRN; Protocol PRN Reason: Per Protocol Patient's Own ( Liraglutide [Victoza 3-Luiz] 0.6 Mg/0.1 Ml Ml) 1.8 mg SQ DAILY [facility] Last Admin: 06/10/24 09:24 Dose: Not Given Pantoprazole Sodium (Pantoprazole 40 Mg Tablet) 40 mg PO AC-BRKFST [facility] Last Admin: 06/10/24 07:18 Dose: 40 mg Potassium Chloride (Potassium Chloride Er 10 Meq Tab.Er.Prt) 10 meq PO DAILY [facility] Last Admin: 06/10/24 10:00 Dose: 10 meq Repaglinide (Repaglinide 1 Mg Tab) 1 mg PO AC-BID [facility] Last Admin: 06/10/24 17:02 Dose: 1 mg Past medical history to include: CAD with stent, diabetes, hypertension, hyperlipidemia, osteoporosis, hypothyroid, PAD with stent Social history: Alcohol occasionally. Lives with her . Smoked for 40 years 2 packs a day stopped in 2003 Physical examination: VITAL SIGNS: Afebrile, 64, 13, 145 x 56, 97% room air GENERAL: Reclining in bed, breathing much improved EYES: Pupils equal. Conjunctiva normal. HEENT: External appearance of nose and ears normal, oral cavity grossly normal. Chronic decreased hearing NECK: JVD raised; masses not palpable. HEART: First and second heart sounds are normal; no edema. LUNGS: Respiratory rate normal; decreased breath sounds. ABDOMEN: Soft, nontender, liver spleen not palpable, no masses palpable. PSYCH: Alert and oriented x3; mood and affect normal. MUSCULOSKELETAL:No Clubbing/cyanosis;muscles-grossly intact. OA INVESTIGATIONS, reviewed in the clinical context: June 10: White count 8.4 hemoglobin 9.9 potassium 4 BUN 23 creatinine 1.23 June 09, 2024: White count 9.2 hemoglobin 10.1 platelets 330 sodium 135 po tassium 3.8 creatinine 1.04 Troponin I less than 0.012, 0.018, 0.043 proBNP 3180 TSH 0.758 Influenza type A, type B, RSV, COVID-19: Not detected EKG tracing personally reviewed by me-sinus rhythm. Left bundle bessie block. Chest x-ray film personally reviewed by me-cardiomegaly. Pulm edema Renal artery duplex: Heavily calcified atherosclerotic plaque especially mid and distal abdominal aorta Limited visualization of the left kidney. Velocities in the right kidney renal artery elevated but the ratio appears normal. Previous investigations 2D echocardiogram [May 31, 2024] EF 50 to 55% moderate pulmonary hypertension moderate mitral annular calcification mild to moderate concentric LVH Cardiac catheterization [May 30, 2024]: Occluded left main and subtotally occluded RCA. Patent HURT to LAD and patent SVG to left circumflex and patent SVG to RCA. Significant gradient across right iliac artery. Assessment and plan: -Acute flash pulmonary edema, from underlying diastolic dysfunction EF 50 to 55%, causing acute hypoxic respiratory failure: Improvement IV Lasix 40 mg every 12. Fluid restriction. Cardiology following -Acute severe hypoxic respiratory failure secondary to pulm edema: Improved Initially on BiPAP,. Now on room air -Accelerated hypertension: Better Patient placed on nitroglycerin drip-discontinued -Positive troponin from underlying acute CHF. No clinical evidence of ACS -CAD with a prior history of stent and bypass Aspirin. Plavix. Lipitor. Lopressor. Cardiac catheterization on May 30 did not show any stenosis. Patent stent and bypass. -Secondary pulmonary hypertension due to COPD and diastolic CHF -Interstitial lung disease. -COPD in a previous smoker DuoNeb -PAD with prior intervention Aspirin, Plavix, Zetia -Diabetes mellitus type 2, on oral hypoglycemic Jardiance, metformin, and Victoza, Prandin. Follow Accu-Cheks and sliding scale -Primary osteoarthritis Tylenol when necessary -Acute kidney injury secondary to vasomotor nephropathy from cardiorenal syndrome Nephrology following -Hyperlipidemia Lipitor -Hypothyroid Synthroid -Essential hypertension Lisinopril, Lopressor 100 mg twice daily -Full code Discussed with patient, and her at bedside. Follow with other consultants. Past Medical History Past Medical History: Coronary Artery Disease (CAD), Chest Pain / Angina, Diabetes Mellitus, Eye Disorder, GERD/Reflux, Hearing Disorder / Deafness, Hyperlipidemia, Hypertension, Myocardial Infarction ([place]), Myocardial Infarction (non Q-wave), Osteoarthritis (OA), Thyroid Disorder, Vascular Disorder Additional Past Medical History / Comment(s): Peripheral Arterial Disease. Glaucoma, has left eye stent. Bilateral hearing aids. slightly sob at times follows with pulminologist Last Myocardial Infarction Date:: 2001 History of Any Multi-Drug Resistant Organisms: None Reported Past Surgical History: Adenoidectomy, Coronary Bypass/CABG, Heart Catheterization, Heart Catheterization With Stent, Tonsillectomy, Tubal Ligation Additional Past Surgical History / Comment(s): Triple bypass in 2019 EXP. LAP 02/2012, STENT TO HEART X1, INFRA RENAL AORTIC STENT, STENTS TO BILATERAL LEGS, AORTOGRAM WITH RUNOFF, bilateral cataracts removed, stent to left eye. Past Anesthesia/Blood Transfusion Reactions: No Reported Reaction Additional Past Anesthesia/Blood Transfusion Reaction / Comment(s): Has never had a blood transfusion. Date of Last Stent Placement:: 2001 Past Psychological History: No Psychological Hx Reported Smoking Status: Former smoker Past Alcohol Use History: Rare Past Drug Use History: None Reported
[2024-06-10 19:38] LABS: Glucose,Whole Blood 148 mg/dL (70-110)
[2024-06-11 06:26] LABS: Anisocytosis Slight; Basophils # (A) 0.1 k/uL (0-0.2); Basophils % (A) 1 %; Eosinophils # (A) 0.4 k/uL (0-0.7); Eosinophils % (A) 4 %; HCT 33.2 % (34.0-46.0); HGB 10.2 gm/dL (11.4-16.0); Hypochromasia Marked; Lymphocytes # (A) 1.8 k/uL (1.0-4.8); Lymphocytes % (A) 22 %; MCH 22.5 pg (25.0-35.0); MCHC 30.6 g/dL (31.0-37.0); MCV 73.4 fL (80.0-100.0); Mean Platelet Volume 6.6; Microcytosis Moderate; Monocytes # (A) 0.5 k/uL (0-1.0); Monocytes % (A) 7 %; Neutrophils # (A) 5.3 k/uL (1.3-7.7); Neutrophils % (A) 64 %; Platelet Count 328 k/uL (150-450); RBC 4.52 m/uL (3.80-5.40); RDW 17.2 % (11.5-15.5); WBC 8.2 k/uL (3.8-10.6)
[2024-06-11 06:26] LABS: Glucose,Whole Blood 142 mg/dL (70-110)
[2024-06-11 06:39] LABS: African American GFR (CKD) 37 (>60 ml/min/1.73 sqM); Anion Gap 9 mmol/L; Blood Urea Nitrogen 34 mg/dL (7-17); Calcium 9.3 mg/dL (8.4-10.2); Carbon Dioxide 33 mmol/L (22-30); Chloride 96 mmol/L (98-107); Glucose 123 mg/dL (74-99); Non-African American GFR(CKD) 32 (>60 ml/min/1.73 sqM); Potassium 3.9 mmol/L (3.5-5.1); Sodium 138 mmol/L (137-145)
[2024-06-11] MEDS: lisinopriL 5 MG TAB PO SCH (08:22)
[2024-06-11] MEDS: ENOXAPARIN 30 MG/0.3 ML SYRINGE SQ SCH (08:23)
--- NOTE | 2024-06-11 10:03 | P.PN ---
Subjective Patient is seen in follow-up for acute kidney injury. Renal function worse from diuresis. Now on room air. Blood pressure well-controlled. Admits to good urine output. Vital signs are stable. General: No acute distress. HEENT: Head exam is unremarkable. LUNGS: No audible rhonchi or wheezes. HEART: Rate and Rhythm are regular. ABDOMEN: Nontender. EXTREMITITES: No edema. Objective - Vital Signs Vital signs: Vital Signs Temp 97.7 F 06/11/24 08:00 Pulse 62 06/11/24 08:00 Resp 15 06/11/24 08:00 BP 116/64 06/11/24 08:00 Pulse Ox 96 06/11/24 08:00 FiO2 40 06/09/24 11:38 Intake & Output 06/10/24 06/11/24 06/11/24 18:59 06:59 18:59 Intake Total 734 666 Output Total 1460 1400 Balance -726 -734 Weight 72.7 kg 72 kg Intake: Oral 734 666 Output: Urine 1460 1400 Other: Voiding Method Indwelling Catheter Indwelling Catheter Indwelling Catheter - Labs CBC & Chem 7: 06/11/24 05:30 06/11/24 05:30 Labs: Abnormal Lab Results - Last 24 Hours (Table) 06/10/24 06/10/24 06/10/24 Range/Units 12:09 16:44 19:36 Hgb (11.4-16.0) gm/dL Hct (34.0-46.0) % MCV (80.0-100.0) fL MCH (25.0-35.0) pg MCHC (31.0-37.0) g/dL RDW (11.5-15.5) % Chloride (98-107) mmol/L Carbon Dioxide (22-30) mmol/L BUN (7-17) mg/dL Creatinine (0.52-1.04) mg/dL Glucose (74-99) mg/dL POC Glucose (mg/dL) 146 H 212 H 148 H (70-110) mg/dL 06/11/24 06/11/24 06/11/24 Range/Units 05:30 05:30 06:25 Hgb 10.2 L (11.4-16.0) gm/dL Hct 33.2 L (34.0-46.0) % MCV 73.4 L (80.0-100.0) fL MCH 22.5 L (25.0-35.0) pg MCHC 30.6 L (31.0-37.0) g/dL RDW 17.2 H (11.5-15.5) % Chloride 96 L (98-107) mmol/L Carbon Dioxide 33 H (22-30) mmol/L BUN 34 H (7-17) mg/dL Creatinine 1.53 H (0.52-1.04) mg/dL Glucose 123 H (74-99) mg/dL POC Glucose (mg/dL) 142 H (70-110) mg/dL Assessment and Plan Plan: Assessment: 1. Acute kidney injury secondary to vasomotor nephropathy from cardiorenal syndrome. Baseline creatinine near 1 and is 1.53 today. UA dated May 28, 2024 showed no proteinuria. No hydronephrosis noted on kidney ultrasound. 2. Acute hypoxic respiratory failure. 3. Acute on chronic diastolic CHF with moderate pulmonary hypertension. 4. Coronary artery disease status post stenting and CABG. Recent NSTEMI. Cardiology following. 5. Peripheral arterial disease status post bilateral iliac stenting. 6. Benign hypertension. Controlled. 7. Diabetes mellitus. Plan: Change Lasix from IV to 40 mg orally once daily. Maintain Farxiga. Avoid nephrotoxins. Continue to monitor renal function and urine output. Potential discharge tomorrow. Advised patient to follow-up outpatient 1 week postdischarge. Advised to monitor her weight closely at home and to notify physician develops edema or gains more than 3 pounds in 1 week duration.
--- NOTE | 2024-06-11 10:28 | P.PN ---
Subjective Progress Note Date: 06/11/24 June 10 2024 The patient was seen and evaluated this morning which is doing much better with the shortness of breath has improved significantly. No pain in the chest. The renal duplex study still pending. As [id number] the pressure has been on the low side and the dose of lisinopril will be decreased by the nephrology service which I would agree on. Examination is remarkable for regular numbness systolic murmur and clear breathing sounds bilaterally and no edema was noted in the lower extremity June 11, 2024 The patient was seen and evaluated this morning which she is asymptomatic and the shortness of breath has resolved with no symptoms of chest pain or chest discomfort but hemodynamically she is stable. The patient is a euvolemic. Physical examination is remarkable for regular rhythm with a soft systolic murmur and clear breathing sounds bilaterally and no edema was noted in the lower extremities. Assessment Hypertension emergency Acute hypoxic respiratory failure CHF exacerbation with diastolic dysfunction Coronary artery disease Peripheral arterial disease Multiple comorbid conditions Plan Continue the current medical regimen The patient can be potentially discharged home in the next 12 to 24 hours Objective - Vital Signs Vital signs: Vital Signs Temp 97.7 F 06/11/24 08:00 Pulse 62 06/11/24 08:00 Resp 15 06/11/24 08:00 BP 116/64 06/11/24 08:00 Pulse Ox 96 06/11/24 08:00 FiO2 40 06/09/24 11:38 Intake & Output 06/10/24 06/11/24 06/11/24 18:59 06:59 18:59 Intake Total 734 666 222 Output Total 1460 1400 Balance -726 -734 222 Weight 72.7 kg 72 kg Intake: Oral 734 666 222 Output: Urine 1460 1400 Other: Voiding Method Indwelling Catheter Indwelling Catheter Indwelling Catheter - Labs CBC & Chem 7: 06/11/24 05:30 06/11/24 05:30 Labs: Abnormal Lab Results - Last 24 Hours (Table) 06/10/24 06/10/24 06/10/24 Range/Units 12:09 16:44 19:36 Hgb (11.4-16.0) gm/dL Hct (34.0-46.0) % MCV (80.0-100.0) fL MCH (25.0-35.0) pg MCHC (31.0-37.0) g/dL RDW (11.5-15.5) % Chloride (98-107) mmol/L Carbon Dioxide (22-30) mmol/L BUN (7-17) mg/dL Creatinine (0.52-1.04) mg/dL Glucose (74-99) mg/dL POC Glucose (mg/dL) 146 H 212 H 148 H (70-110) mg/dL 06/11/24 06/11/24 06/11/24 Range/Units 05:30 05:30 06:25 Hgb 10.2 L (11.4-16.0) gm/dL Hct 33.2 L (34.0-46.0) % MCV 73.4 L (80.0-100.0) fL MCH 22.5 L (25.0-35.0) pg MCHC 30.6 L (31.0-37.0) g/dL RDW 17.2 H (11.5-15.5) % Chloride 96 L (98-107) mmol/L Carbon Dioxide 33 H (22-30) mmol/L BUN 34 H (7-17) mg/dL Creatinine 1.53 H (0.52-1.04) mg/dL Glucose 123 H (74-99) mg/dL POC Glucose (mg/dL) 142 H (70-110) mg/dL
--- NOTE | 2024-06-11 11:03 | P.PN ---
Subjective Progress Note Date: 06/11/24 Principal diagnosis: Acute hypoxic respiratory failure secondary to pulmonary edema secondary to hypertensive emergency. This is a very pleasant 78-year-old female patient with a known history of coronary artery disease with with previous coronary artery bypass grafting, peripheral artery disease with previous bilateral iliac stenting and bilateral SFA angioplasty, valvular heart disease, hypertension, hyperlipidemia, mild pulmonary fibrosis and follows with Dr. Eaton in our office for the same. She was recently admitted with chest pain and had undergone cardiac catheterization on May 30, 2024 and was found to have an occluded left main and subtotally occluded RCA. Patent HURT to the LAD and patent SVG to the left circumflex and patent SVG to the RCA. Maximal medical therapy was recommended. An echocardiogram was performed at that time and she was found to have preserved left ventricular systolic function with an ejection fraction 50 to 55% with mild aortic stenosis. She presented here this morning to the emergency department with a rather sudden onset of shortness of breath and palpitations. It woke her from a sound sleep. EKG reveals sinus rhythm with a left bundle branch block. She was found to be hypertensive with a peak blood pressure of 188/136. Chest x-ray reveals mild cardiomegaly with worsening interstitial patchy opacities. Trace pleural effusions. White count 9.2. Hemoglobin 10.1. Platelets 330. Sodium 135. Potassium 3.8. Bicarb 23. BUN 16. Creatinine 1.04. Glucose 169. Troponins are negative x 2. proBNP 3000 180. TSH 0.758. Viral screen is negative. She is seen today in consultation in the emergency department. She is currently on BiPAP 12/6 and 70% FiO2. She is awake and alert. She been initiated on nitroglycerin drip at 20 mcg/min. She is initiated on Lasix at 40 mg IV every 12 hours. She is feeling a bit better since she has been here. She has diuresed 2 L thus far. Renal ultrasound is equivocal for right renal artery stenosis. Heavily calcified atherosclerotic plaque especially mid and distal abdominal aorta continuing to elevate peak systolic flow velocities to 290 cm/s. Underlying significant atherosclerotic aortic stenosis not excluded. Patient was reevaluated today on 06/10/2024, I saw this patient yesterday in the ER for shortness of breath secondary to acute pulmonary edema secondary to hypertensive emergency. Patient was also seen by cardiology, placed on nitroglycerin drip, and she was sent to the ICU. Earlier this morning her nitroglycerin has been discontinued, her blood pressure seems to be better controlled, patient received few doses of Lasix overnight, and clinically she is feeling much better, breathing easier, chest x-ray showed improvement in her pulmonary edema. No cough no wheezing no chest pain. No fever no chills.WBC count is 8.4 hemoglobin 9.9 basic metabolic profile is normal renal profile showed a BUN of 23 creatinine 1.23 slightly worse compared to yesterday continues to have good urine output, responding well to diuretics. Seen by nephrology on consultation for acute kidney injury which was felt to be vasomotor nephropathy from cardiorenal syndrome. No hydronephrosis noted on ultrasound. Referral is down to 5 mg daily, patient is on fark [employer], and nephrotoxins are being avoided Patient was evaluated today on 06/11/2024, remains in the ICU, asymptomatic, on room air, no cough no wheezing no shortness of breath, patient responded well to diuretics. Patient is asking to be discharged home, however patient had to be cleared by cardiology. I believe cardiology is planning to discharge the patient in the next 24 hours. Pulmonary shankar she is doing great, hardly any pulmonary symptoms, patient does have underlying interstitial lung disease which is being monitored on outpatient basis.WBC count is 8.2 hemoglobin is 10.2 electrolytes are normal BUN is 34 creatinine 1.53, has increased since admission, being monitored Objective - Vital Signs Vital signs: Vital Signs Temp 97.7 F 06/11/24 08:00 Pulse 62 06/11/24 08:00 Resp 15 06/11/24 08:00 BP 116/64 06/11/24 08:00 Pulse Ox 96 06/11/24 08:00 FiO2 40 06/09/24 11:38 Intake & Output 06/10/24 06/11/24 06/11/24 18:59 06:59 18:59 Intake Total 734 666 222 Output Total 1460 1400 Balance -726 -734 222 Weight 72.7 kg 72 kg Intake: Oral 734 666 222 Output: Urine 1460 1400 Other: Voiding Method Indwelling Catheter Indwelling Catheter Indwelling Catheter - Exam GENERAL EXAM: Ill 78-year-old female on room air, not in any distress. HEAD: Normocephalic. EYES: Normal reaction of pupils, equal size. NOSE: Clear with pink turbinates. THROAT: No erythema or exudates. NECK: No masses, no JVD. CHEST: No chest wall deformity. LUNGS: Clear bilaterally no crackles rhonchi or wheezes CVS: S1 and S2 normal with no audible murmur, regular rhythm. ABDOMEN: No hepatosplenomegaly, normal bowel sounds, no guarding or rigidity. SKIN: No rashes CENTRAL NERVOUS SYSTEM: Alert and oriented x 3 no gross focal neurologic deficit EXTREMITIES: No clubbing edema or cyanosis - Labs CBC & Chem 7: 06/11/24 05:30 06/11/24 05:30 Labs: Abnormal Lab Results - Last 24 Hours (Table) 06/10/24 06/10/24 06/10/24 Range/Units 12:09 16:44 19:36 Hgb (11.4-16.0) gm/dL Hct (34.0-46.0) % MCV (80.0-100.0) fL MCH (25.0-35.0) pg MCHC (31.0-37.0) g/dL RDW (11.5-15.5) % Chloride (98-107) mmol/L Carbon Dioxide (22-30) mmol/L BUN (7-17) mg/dL Creatinine (0.52-1.04) mg/dL Glucose (74-99) mg/dL POC Glucose (mg/dL) 146 H 212 H 148 H (70-110) mg/dL 06/11/24 06/11/24 06/11/24 Range/Units 05:30 05:30 06:25 Hgb 10.2 L (11.4-16.0) gm/dL Hct 33.2 L (34.0-46.0) % MCV 73.4 L (80.0-100.0) fL MCH 22.5 L (25.0-35.0) pg MCHC 30.6 L (31.0-37.0) g/dL RDW 17.2 H (11.5-15.5) % Chloride 96 L (98-107) mmol/L Carbon Dioxide 33 H (22-30) mmol/L BUN 34 H (7-17) mg/dL Creatinine 1.53 H (0.52-1.04) mg/dL Glucose 123 H (74-99) mg/dL POC Glucose (mg/dL) 142 H (70-110) mg/dL Assessment and Plan Assessment: Impression:Acute hypoxemic respiratory failure secondary to an acute episode of pulmonary edema secondary to hypertensive emergency Hypertensive emergency, patient is off nitroglycerin today Recent admission for chest pain, cardiac catheterization from 05/30/2024 revealed occluded left main and subtotally occluded RCA with patent HURT to the LAD and patent SVGs to the circumflex and RCA. Significant gradient across the right iliac artery. Maximal medical therapy was recommended. Echocardiogram is revealed preserved left ventricular systolic function with ejection fraction 50 to 55% History of coronary artery disease with previous coronary artery bypass grafting in 2019 Mild pulmonary fibrosis being followed in the outpatient setting Hypertension Hyperlipidemia Diabetes mellitus Hypothyroidism Peripheral arterial disease with previous bilateral iliac stenting and bilateral SFA angioplasty Moderate pulmonary hypertension with RVSP of 49 mmHg History of anemia Acute kidney injury, likely secondary to hypertensive emergency, or cardiorenal in nature Recommendation: Continue diuretics Continue to monitor renal status profile Patient is presently an overflow in the ICU, could be transferred to cardiac floor once a bed is available Possible discharge planning in the next 24 hours Will continue to follow. Time with Patient: Less than 30
--- NOTE | 2024-06-11 11:13 | XR ---
EXAMINATION TYPE: XR chest 1V portable DATE OF EXAM: 06/11/2024 Comparison: 06/10/2024 Clinical History: 78-year-old female shortness of breath Findings: Median sternotomy wires and post-CABG clips. Heart borderline in size. Similar interstitial densities . Some of the patchy perihilar density may have slightly improved now. Impression: Correlate for ongoing CHF with pulmonary vascular congestion though with some interval improvement. [facility], , 06/11/2024 11:11 AM
[2024-06-11 11:15] LABS: Glucose,Whole Blood 142 mg/dL (70-110)
--- NOTE | 2024-06-11 12:34 | P.PN ---
Progress Note - Text Progress Note Date: 06/11/24 Chief Complaint: Could not breathe This is a pleasant 78-year-old patient follows with Dr. Karley Winslow. 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 Recently admitted to the hospital from May 28 through May 30. With chest burning. Underwent cardiac catheterization on May 30. Found to have patent stent and bypass. Patient was cleared by cardiology. 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 [place] her chest pounding. No cough no fever no chills. Short of breath. In the ER overnight patient received IV Lasix. Made good urine. Breathing better. Patient required BiPAP overnight. On 15 L this morning. Patient placed on nitroglycerin drip because of high blood pressure. June 10: ICU. Patient moved to the ICU last night. Breathing better. Now down to room air pulse ox. visiting. Feeling better. Nitroglycerin drip was discontinued this morning. Had the patient sit up in a chair. Remains on IV Lasix. Dose of lisinopril cut back. Chest x-ray from today shows pulm edema though some improvement June 11: ICU. Breathing good. Creatinine bumped up to 1.53. Did receive a dose of IV Lasix earlier today. Did talk to the patient about my cons of it further going up since she received the Lasix today. Will check creatinine tomorrow. Discontinue fluid restriction. Check her creatinine tomorrow. Will hold off MEL inhibitor tomorrow morning as blood pressure bit on the lower side. And because acute rise in creatinine l Active Medications Albuterol/Ipratropium (Ipratropium-Albuterol 3 Ml Neb) 3 ml INHALATION RT-QID [facility] Last Admin: 06/11/24 10:53 Dose: Not Given Aspirin (Aspirin 81 Mg) 81 mg PO DAILY [facility] Last Admin: 06/11/24 08:22 Dose: 81 mg Atorvastatin Calcium (Atorvastatin 10 Mg Tab) 10 mg PO HS [facility] Last Admin: 06/10/24 20:47 Dose: 10 mg Clopidogrel Bisulfate (Clopidogrel 75 Mg Tab) 75 mg PO DAILY [facility] Last Admin: 06/11/24 08:22 Dose: 75 mg Cyanocobalamin (Cyanocobalamin 500 Mcg Tab) 1,000 mcg PO DAILY [facility] Last Admin: 06/11/24 08:22 Dose: 1,000 mcg Dapagliflozin (Dapagliflozin Propanediol 10 Mg Tablet) 10 mg PO DAILY [facility] Last Admin: 06/11/24 08:23 Dose: 10 mg Dextrose/Water (Dextrose 50% Syringe 50 Ml) 25 ml IVP PER PROTOCOL PRN; Protocol PRN Reason: Hypoglycemia Dextrose/Water (Dextrose 50% Syringe 50 Ml) 50 ml IVP PER PROTOCOL PRN; Protocol PRN Reason: Hypoglycemia Ezetimibe (Ezetimibe 10 Mg Tab) 10 mg PO DAILY [facility] Last Admin: 06/11/24 08:22 Dose: 10 mg Enoxaparin Sodium (Enoxaparin 30 Mg/0.3 Ml Syringe) 30 mg SQ DAILY [facility] Last Admin: 06/11/24 08:23 Dose: 30 mg Famotidine (Famotidine 20 Mg Tab) 20 mg PO HS [facility] Last Admin: 06/10/24 20:46 Dose: 20 mg Furosemide (Furosemide 40 Mg Tab) 40 mg PO DAILY [facility] Insulin Aspart (Insulin Aspart (Novolog) 100 Unit/Ml Vial) 0 unit SQ AC-TID [facility]; Protocol Last Admin: 06/11/24 11:17 Dose: Not Given Levothyroxine Sodium (Levothyroxine 112 Mcg Tab) 112 mcg PO 0630 [facility] Last Admin: 06/11/24 06:45 Dose: 112 mcg Metformin HCl (Metformin 500 Mg Tab) 250 mg PO BID [facility] Last Admin: 06/11/24 08:22 Dose: 250 mg Metoprolol Tartrate (Metoprolol Tartrate 50 Mg Tab) 100 mg PO BID-W/MEALS [facility] Last Admin: 06/11/24 06:45 Dose: 100 mg Miscellaneous Information (Potassium Replacement Protocol 1 Each Misc) 1 each MISCELLANE DAILY PRN; Protocol PRN Reason: Per Protocol Patient's Own ( Liraglutide [Victoza 3-Luiz] 0.6 Mg/0.1 Ml Ml) 1.8 mg SQ DAILY [facility] Last Admin: 06/11/24 08:23 Dose: Not Given Pantoprazole Sodium (Pantoprazole 40 Mg Tablet) 40 mg PO AC-BRKFST [facility] Last Admin: 06/11/24 06:45 Dose: 40 mg Potassium Chloride (Potassium Chloride Er 10 Meq Tab.Er.Prt) 10 meq PO DAILY [facility] Last Admin: 06/11/24 08:22 Dose: 10 meq Repaglinide (Repaglinide 1 Mg Tab) 1 mg PO AC-BID [facility] Last Admin: 06/11/24 06:45 Dose: 1 mg Past medical history to include: CAD with stent, diabetes, hypertension, hyperlipidemia, osteoporosis, hypothyroid, PAD with stent Social history: Alcohol occasionally. Lives with her . Smoked for 40 years 2 packs a day stopped in 2003 Physical examination: VITAL SIGNS: 97.8, 64, 18, 115/57, 96% room GENERAL: Patient in bed, breathing stable EYES: Pupils equal. Conjunctiva normal. HEENT: External appearance of nose and ears normal, oral cavity grossly normal. Chronic decreased hearing NECK: JVD raised; masses not palpable. HEART: First and second heart sounds are normal; no edema. LUNGS: Respiratory rate normal; decreased breath sounds. ABDOMEN: Soft, nontender, liver spleen not palpable, no masses palpable. PSYCH: Alert and oriented x3; mood and affect normal. MUSCULOSKELETAL:No Clubbing/cyanosis;muscles-grossly intact. OA INVESTIGATIONS, reviewed in the clinical context: June 11: White count 8.2 hemoglobin 10.2 platelets 328 potassium 3.9 BUN 34 creatinine 1.53 June 10: White count 8.4 hemoglobin 9.9 potassium 4 BUN 23 creatinine 1.23 June 09, 2024: White count 9.2 hemoglobin 10.1 platelets 330 sodium 135 potassium 3.8 creatinine 1.04 Troponin I less than 0.012, 0.018, 0.043 proBNP 3180 TSH 0.758 Influenza type A, type B, RSV, COVID-19: Not detected EKG tracing personally reviewed by me-sinus rhythm. Left bundle bessie block. Chest x-ray film personally reviewed by fl-cardiomegaly. Pulm edema Renal artery duplex: Heavily calcified atherosclerotic plaque especially mid and distal abdominal aorta Limited visualization of the left kidney. Velocities in the right kidney renal artery elevated but the ratio appears normal. Previous investigations 2D echocardiogram [May 31, 2024] EF 50 to 55% moderate pulmonary hypertension moderate mitral annular calcification mild to moderate concentric LVH Cardiac catheterization [May 30, 2024]: Occluded left main and subtotally occluded RCA. Patent HURT to LAD and patent SVG to left circumflex and patent SVG to RCA. Significant gradient across right iliac artery. Assessment and plan: -Acute flash pulmonary edema, from underlying diastolic dysfunction EF 50 to 55%, causing acute hypoxic respiratory failure: Improved IV Lasix received. Switched over to p.o. Lasix. Cardiology following -Acute severe hypoxic respiratory failure secondary to pulm edema: Improved Initially on BiPAP,. Now on room air -Accelerated hypertension: Improved Patient placed on nitroglycerin drip-discontinued Hold MEL inhibitor because of acute rise in creatinine -Positive troponin from underlying acute CHF. No clinical evidence of ACS -CAD with a prior history of stent and bypass Aspirin. Plavix. Lipitor. Lopressor. Cardiac catheterization on May 30 did not show any stenosis. Patent stent and bypass. -Secondary pulmonary hypertension due to COPD and diastolic CHF -Interstitial lung disease. -COPD in a previous smoker DuoNeb -PAD with prior intervention Aspirin, Plavix, Zetia -Diabetes mellitus type 2, on oral hypoglycemic Jardiance, metformin, and Victoza, Prandin. Follow Accu-Cheks and sliding scale -Primary osteoarthritis Tylenol when necessary -Acute kidney injury secondary to vasomotor nephropathy from cardiorenal syndrome: Worsening Hold MEL inhibitor. Repeat labs in the morning. Nephrology following -Hyperlipidemia Lipitor -Hypothyroid Synthroid -Essential hypertension Lisinopril-hold for now, Lopressor 100 mg twice daily -Full code Hold MEL inhibitor. Hold to check creatinine tomorrow morning. Discussed with patient. Past Medical History Past Medical History: Coronary Artery Disease (CAD), Chest Pain / Angina, Diabetes Mellitus, Eye Disorder, GERD/Reflux, Hearing Disorder / Deafness, Hyperlipidemia, Hypertension, Myocardial Infarction (NM), Myocardial Infarction (non Q-wave), Osteoarthritis (OA), Thyroid Disorder, Vascular Disorder Additional Past Medical History / Comment(s): Peripheral Arterial Disease. Glaucoma, has left eye stent. Bilateral hearing aids. slightly sob at times follows with pulminologist Last Myocardial Infarction Date:: 2001 History of Any Multi-Drug Resistant Organisms: None Reported Past Surgical History: Adenoidectomy, Coronary Bypass/CABG, Heart Catheterization, Heart Catheterization With Stent, Tonsillectomy, Tubal Ligation Additional Past Surgical History / Comment(s): Triple bypass in 2019 EXP. LAP 02/2012, STENT TO HEART X1, INFRA RENAL AORTIC STENT, STENTS TO BILATERAL LEGS, AORTOGRAM WITH RUNOFF, bilateral cataracts removed, stent to left eye. Past Anesthesia/Blood Transfusion Reactions: No Reported Reaction Additional Past Anesthesia/Blood Transfusion Reaction / Comment(s): Has never had a blood transfusion. Date of Last Stent Placement:: 2001 Past Psychological History: No Psychological Hx Reported Smoking Status: Former smoker Past Alcohol Use History: Rare Past Drug Use History: None Reported
[2024-06-11 15:48] VITALS: RESP 16
[2024-06-11 17:23] LABS: Glucose,Whole Blood 139 mg/dL (70-110)
[2024-06-11 21:27] LABS: Glucose,Whole Blood 164 mg/dL (70-110)
[2024-06-12 04:27] LABS: African American GFR (CKD) 37 (>60 ml/min/1.73 sqM); Anion Gap 10 mmol/L; Blood Urea Nitrogen 41 mg/dL (7-17); Calcium 9.3 mg/dL (8.4-10.2); Carbon Dioxide 29 mmol/L (22-30); Chloride 94 mmol/L (98-107); Glucose 158 mg/dL (74-99); Non-African American GFR(CKD) 32 (>60 ml/min/1.73 sqM); Sodium 133 mmol/L (137-145)
[2024-06-12 05:14] LABS: Glucose,Whole Blood 203 mg/dL (70-110)
[2024-06-12 06:13] LABS: Glucose,Whole Blood 157 mg/dL (70-110)
[2024-06-12] MEDS: FUROSEMIDE 40 MG TAB PO SCH (08:10)
[2024-06-12 08:11] VITALS: BP 120/66; PULSE 57; TEMP 97.6
--- NOTE | 2024-06-12 08:32 | XR ---
EXAMINATION TYPE: XR chest 1V portable DATE OF EXAM: 06/12/2024 6:43 AM CLINICAL INDICATION: Female, 78 years old with history of shortness of breath; [facility] COMPARISON: Chest radiograph from one day prior. TECHNIQUE: XR chest 1V portable Frontal view of the chest. FINDINGS: Lungs/Pleura: There is no evidence of pleural effusion, focal consolidation, or pneumothorax. Pulmonary vascularity: Unremarkable. Heart/mediastinum: Cardiomediastinal silhouette is unremarkable. Musculoskeletal: No acute osseous pathology. Midline sternotomy wires are noted. Other findings: None IMPRESSION: No change from prior, Cardiomegaly and mild pulmonary vascular congestion. Correlate with BNP for con gestive heart failure. [facility], , 06/12/2024 8:29 AM
--- NOTE | 2024-06-12 12:19 | P.PN ---
Subjective Progress Note Date: 06/12/24 This is a very pleasant 78-year-old female patient with a known history of coronary artery disease with with previous coronary artery bypass grafting, peripheral artery disease with previous bilateral iliac stenting and bilateral SFA angioplasty, valvular heart disease, hypertension, hyperlipidemia, mild pulmonary fibrosis and follows with Dr. Eaton in our office for the same. She was recently admitted with chest pain and had undergone cardiac catheterization on May 30, 2024 and was found to have an occluded left main and subtotally occluded RCA. Patent HURT to the LAD and patent SVG to the left circumflex and patent SVG to the RCA. Maximal medical therapy was recommended. An echocardiog nitish was performed at that time and she was found to have preserved left ventricular systolic function with an ejection fraction 50 to 55% with mild aortic stenosis. She presented here this morning to the emergency department with a rather sudden onset of shortness of breath and palpitations. It woke her from a sound sleep. EKG reveals sinus rhythm with a left bundle branch block. She was found to be hypertensive with a peak blood pressure of 188/136. Chest x-ray reveals mild cardiomegaly with worsening interstitial patchy opacities. Trace pleural effusions. White count 9.2. Hemoglobin 10.1. Platelets 330. Sodium 135. Potassium 3.8. Bicarb 23. BUN 16. Creatinine 1.04. Glucose 169. Troponins are negative x 2. proBNP 3000 180. TSH 0.758. Viral screen is negative. She is seen today in consultation in the emergency department. She is currently on BiPAP 12/6 and 70% FiO2. She is awake and alert. She been initiated on nitroglycerin drip at 20 mcg/min. She is initiated on Lasix at 40 mg IV every 12 hours. She is feeling a bit better since she has been here. She has diuresed 2 L thus far. Renal ultrasound is equivocal for right renal artery stenosis. Heavily calcified atherosclerotic plaque especially mid and distal abdominal aorta continuing to elevate peak systolic flow velocities to 290 cm/s. Underlying significant atherosclerotic aortic stenosis not excluded. Patient was reevaluated today on 06/10/2024, I saw this patient yesterday in the ER for shortness of breath secondary to acute pulmonary edema secondary to hypertensive emergency. Patient was also seen by cardiology, placed on nitroglycerin drip, and she was sent to the ICU. Earlier this morning her nitroglycerin has been discontinued, her blood pressure seems to be better controlled, patient received few doses of Lasix overnight, and clinically she is feeling much better, breathing easier, chest x-ray showed improvement in her pulmonary edema. No cough no wheezing no chest pain. No fever no chills.WBC count is 8.4 hemoglobin 9.9 basic metabolic profile is normal renal profile show ed a BUN of 23 creatinine 1.23 slightly worse compared to yesterday continues to have good urine output, responding well to diuretics. Seen by nephrology on consultation for acute kidney injury which was felt to be vasomotor nephropathy from cardiorenal syndrome. No hydronephrosis noted on ultrasound. Referral is down to 5 mg daily, patient is on fark [employer], and nephrotoxins are being avoided Patient was evaluated today on 06/11/2024, remains in the ICU, asymptomatic, on room air, no cough no wheezing no shortness of breath, patient responded well to diuretics. Patient is asking to be discharged home, however patient had to be cleared by cardiology. I believe cardiology is planning to discharge the patient in the next 24 hours. Pulmonary shankar she is doing great, hardly any pulmonary symptoms, patient does have underlying interstitial lung disease which is being monitored on outpatient basis.WBC count is 8.2 hemoglobin is 10.2 electrolytes are normal BUN is 34 creatinine 1.53, has increased since admission, being monitored The patient is seen today June 12, 2024 in follow-up on the regular medical floor. She is currently sitting up in bed. Awake and alert in no acute di stress. Maintaining good O2 saturations in the 90s on room air. No IV fluids. She denies any worsening shortness of breath, cough or congestion. No chest pain. She is anxious to go home. She has been transitioned to oral diuretics. Chest x-ray reveals mild cardiomegaly and mild pulmonary vascular congestion. Sodium 133. Potassium 4.0. Bicarb 29. BUN 41. Creatinine 1.54. Glucose 158. Objective - Vital Signs Vital signs: Vital Signs Temp 97.6 F 06/12/24 07:30 Pulse 60 06/12/24 07:49 Resp 16 06/12/24 07:30 BP 120/66 06/12/24 07:30 Pulse Ox 98 06/12/24 07:30 FiO2 40 06/09/24 11:38 Intake & Output 0906/12/24 06/12/24 18:59 06:59 18:59 Intake Total 784 118 Balance 784 118 Weight 68.9 kg Intake: Oral 784 118 Other: Voiding Method Toilet # Voids 1 1 # Bowel Movements 1 - Exam GENERAL EXAM: Alert, very pleasant 78-year-old female, on room air, comfortable in no apparent distress. HEAD: Normocephalic. EYES: Normal reaction of pupils, equal size. NOSE: Clear with pink turbinates. THROAT: No erythema or exudates. NECK: No masses, no JVD. CHEST: No chest wall deformity. LUNGS: Equal air entry faint crackles in the bilateral bases. CVS: S1 and S2 normal with no audible murmur, regular rhythm. ABDOMEN: No hepatosplenomegaly, normal bowel sounds, no guarding or rigidity. SPINE: No scoliosis or deformity SKIN: No rashes CENTRAL NERVOUS SYSTEM: No focal deficits, tone is normal in all 4 extremities. EXTREMITIES: There is no peripheral edema. No clubbing, no cyanosis. Peripheral pulses are intact. - Labs CBC & Chem 7: 06/11/24 05:30 06/12/24 03:11 Labs: Abnormal Lab Results - Last 24 Hours (Table) 06/11/24 06/11/24 06/12/24 Range/Units 17:21 21:26 03:11 Sodium 133 L (137-145) mmol/L Chloride 94 L (98-107) mmol/L BUN 41 H (7-17) mg/dL Creatinine 1.54 H (0.52-1.04) mg/dL Glucose 158 H (74-99) mg/dL POC Glucose (mg/dL) 139 H 164 H (70-110) mg/dL 06/12/24 06/12/24 Range/Units 05:12 06:12 Sodium (137-145) mmol/L Chloride (98-107) mmol/L BUN (7-17) mg/dL Creatinine (0.52-1.04) mg/dL Glucose (74-99) mg/dL POC Glucose (mg/dL) 203 H 157 H (70-110) mg/dL Assessment and Plan Assessment: Acute hypoxemic respiratory failure secondary to an acute episode of pulmonary edema suspect secondary to hypertensive emergency Hypertensive emergency, currently on a nitroglycerin drip at 20 mcg/min Equivocal right renal artery stenosis based on renal artery ultrasound revealing heavily calcified atherosclerotic plaque especially mid and distal abdominal aorta continuing to elevate peak systolic flow velocities at 290 cm/s. Underlying significant atherosclerotic aortic stenosis not excluded. Unable to visualize the left kidney to evaluate left renal vasculature Recent admission for chest pain, cardiac catheterization from 05/30/2024 revealed occluded left main and subtotally occluded RCA with patent HURT to the LAD and patent SVGs to the circumflex and RCA. Significant gradient across the right iliac artery. Maximal medical therapy was recommended. Echocardiogram is revea led preserved left ventricular systolic function with ejection fraction 50 to 55% History of coronary artery disease with previous coronary artery bypass grafting in 2019 Mild pulmonary fibrosis being followed in the outpatient setting Hypertension Hyperlipidemia Diabetes mellitus Hypothyroidism Peripheral arterial disease with previous bilateral iliac stenting and bilateral SFA angioplasty Moderate pulmonary hypertension with RVSP of 49 mmHg History of anemia Plan: The patient was seen and evaluated Chest x-ray, labs and medications reviewed Currently stable and on room air Transitioned to oral diuretics Cleared for discharge once cleared by cardiology This patient was seen independently by the pulmonary nurse practitioner addressing pulmonary issues I have personally seen and examined the patient, performed the documentation and the assessment and plan as written. Number of minutes spent on the visit: 23.
--- NOTE | 2024-06-12 21:31 | P.PN ---
Progress Note - Text Progress Note Date: 06/12/24 Chief Complaint: Could not breathe This is a pleasant 78-year-old patient follows with Dr. Karley Winslow. 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 Recently admitted to the hospital from May 28 through May 30. With chest burning. Underwent cardiac catheterization on May 30. Found to have patent stent and bypass. Patient was cleared by cardiology. 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 [place] her chest pounding. No cough no fever no chills. Short of breath. In the ER overnight patient received IV Lasix. Made good urine. Breathing better. Patient required BiPAP overnight. On 15 L this morning. Patient placed on nitroglycerin drip because of high blood pressure. June 10: ICU. Patient moved to the ICU last night. Breathing better. Now down to room air pulse ox. visiting. Feeling better. Nitroglycerin drip was discontinued this morning. Had the patient sit up in a chair. Remains on IV Lasix. Dose of lisinopril cut back. Chest x-ray from today shows pulm edema though some improvement June 11: ICU. Breathing good. Creatinine bumped up to 1.53. Did receive a dose of IV Lasix earlier today. Did talk to the patient about my cons of it further going up since she received the Lasix today. Will check creatinine tomorrow. Discontinue fluid restriction. Check her creatinine tomorrow. Will hold off MEL inhibitor tomorrow morning as blood pressure bit on the lower side. And because acute rise in creatinine l June 15: Creatinine stable at 1.53. Discussed with the patient has been. Will be discharged on oral Lasix. Zestril has been held for now. She will follow-up with her PCP Dr. Jeffries and Dr. Crawford from nephrology. Questions answered Past medical history to include: CAD with stent, diabetes, hypertension, hyperlipidemia, osteoporosis, hypothyroid, PAD with stent Social history: Alcohol occasionally. Lives with her . Smoked for 40 years 2 packs a day stopped in 2003 Physical examination: VITAL SIGNS: 97.6, 57, 16, 120 x 66, 98% room air GENERAL: Patient in bed, comfortable EYES: Pupils equal. Conjunctiva normal. HEENT: External appearance of nose and ears normal, oral cavity grossly normal. Chronic decreased hearing NECK: JVD raised; masses not palpable. HEART: First and second heart sounds are normal; no edema. LUNGS: Respiratory rate normal; decreased breath sounds. ABDOMEN: Soft, nontender, liver spleen not palpable, no masses palpable. PSYCH: Alert and oriented x3; mood and affect normal. MUSCULOSKELETAL:No Clubbing/cyanosis;muscles-grossly intact. OA INVESTIGATIONS, reviewed in the clinical context: June 12: Potassium 4 BUN 41 creatinine 1.54 June 11: White count 8.2 hemoglobin 10.2 platelets 328 potassium 3.9 BUN 34 creatinine 1.53 June 10: White count 8.4 hemoglobin 9.9 potassium 4 BUN 23 creatinine 1.23 June 09, 2024: White count 9.2 hemoglobin 10.1 platelets 330 sodium 135 potassium 3.8 creatinine 1.04 Troponin I less than 0.012, 0.018, 0.043 proBNP 3180 TSH 0.758 Influenza type A, type B, RSV, COVID-19: Not detected EKG tracing personally reviewed by me-sinus rhythm. Left bundle bessie block. Chest x-ray film personally reviewed by me-cardiomegaly. Pulm edema Renal artery duplex: Heavily calcified atherosclerotic plaque especially mid and distal abdominal aorta Limited visualization of the left kidney. Velocities in the right kidney renal artery elevated but the ratio appears normal. Previous investigations 2D echocardiogram [May 31, 2024] EF 50 to 55% moderate pulmonary hypertension moderate mitral annular calcification mild to moderate concentric LVH Cardiac catheterization [May 30, 2024]: Occluded left main and subtotally occluded RCA. Patent HURT to LAD and patent SVG to left circumflex and patent SVG to RCA. Significant gradient across right iliac artery. Assessment and plan: -Acute flash pulmonary edema, from underlying diastolic dysfunction EF 50 to 55%, causing acute hypoxic respiratory failure: Improved IV Lasix received. Switched over to p.o. Lasix. Cardiology following -Acute severe hypoxic respiratory failure secondary to pulm edema: Improved Initially on BiPAP,. Now on room air -Accelerated hypertension: Improved Patient placed on nitroglycerin drip-discontinued Hold MEL inhibitor because of acute rise in creatinine -Positive troponin from underlying acute CHF. No clinical evidence of ACS -CAD with a prior history of stent and bypass Aspirin. Plavix. Lipitor. Lopressor. Cardiac catheterization on May 30 did not show any stenosis. Patent stent and bypass. Follow-up with Dr. Jeffries -Secondary pulmonary hypertension due to COPD and diastolic CHF -Interstitial lung disease. -COPD in a previous smoker DuoNeb -PAD with prior intervention Aspirin, Plavix, Zetia -Diabetes mellitus type 2, on oral hypoglycemic Jardiance, metformin, and Victoza, Prandin. Follow Accu-Cheks and sliding scale -Primary osteoarthritis Tylenol when necessary -Acute kidney injury secondary to vasomotor nephropathy from cardiorenal syndrome: Worsening Hold MEL inhibitor. Follow-up with Dr. Crawford outpatient -Hyperlipidemia Lipitor -Hypothyroid Synthroid -Essential hypertension Lisinopril-hold , Lopressor 100 mg twice daily -Full code Disposition: Home Past Medical History Past Medical History: Coronary Artery Disease (CAD), Chest Pain / Angina, Diabetes Mellitus, Eye Disorder, GERD/Reflux, Hearing Disorder / Deafness, Hyperlipidemia, Hypertension, Myocardial Infarction (OR), Myocardial Infarction (non Q-wave), Osteoarthritis (OA), Thyroid Disorder, Vascular Disorder Additional Past Medical History / Comment(s): Peripheral Arterial Disease. Glaucoma, has left eye stent. Bilateral hearing aids. slightly sob at times follows with pulminologist Last Myocardial Infarction Date:: 2001 History of Any Multi-Drug Resistant Organisms: None Reported Past Surgical History: Adenoidectomy, Coronary Bypass/CABG, Heart Catheterization, Heart Catheterization With Stent, Tonsillectomy, Tubal Ligation Additional Past Surgical History / Comment(s): Triple bypass in 2019 EXP. LAP 02/2012, STENT TO HEART X1, INFRA RENAL AORTIC STENT, STENTS TO BILATERAL LEGS, AORTOGRAM WITH RUNOFF, bilateral cataracts removed, stent to left eye. Past Anesthesia/Blood Transfusion Reactions: No Reported Reaction Additional Past Anesthesia/Blood Transfusion Reaction / Comment(s): Has never had a blood transfusion. Date of Last Stent Placement:: 2001 Past Psychological History: No Psychological Hx Reported Smoking Status: Former smoker Past Alcohol Use History: Rare Past Drug Use History: None Reported
--- NOTE | 2024-06-28 22:53 | P.DS ---
Providers Date of admission: 06/09/24 06:08 Expected date of discharge: 06/12/24 Attending physician: Daryl Briceno Consults: 06/09/24 06:05 Consult Physician Routine Consulting Provider: Berto Jeffries Consult Reason/Comments: heart failure Do you want consulting provider notified?: Yes 06/09/24 07:21 Consult Physician Routine Consulting Provider: Twyla Eaton Consult Reason/Comments: ICU management Do you want consulting provider notified?: Yes 06/09/24 15:32 Consult Physician Routine Consulting Provider: [place] Consult Reason/Comments: CKD Do you want consulting provider notified?: Yes Primary care physician: Karley Winslow MD Hospital Course: Chief Complaint: Could not breathe This is a pleasant 78-year-old patient follows with Dr. Karley Winslow. 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 Recently admitted to the hospital from May 28 through May 30. With chest burning. Underwent cardiac catheterization on May 30. Found to have patent stent and bypass. Patient was cleared by cardiology. 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 [place] her chest pounding. No cough no fever no chills. Short of breath. In the ER overnight patient received IV Lasix. Made good urine. Breathing better. Patient required BiPAP overnight. On 15 L this morning. Patient placed on nitroglycerin drip because of high blood pressure. June 10: ICU. Patient moved to the ICU last night. Breathing better. Now down to room air pulse ox. visiting. Feeling better. Nitroglycerin drip was discontinued this morning. Had the patient sit up in a chair. Remains on IV Lasix. Dose of lisinopril cut back. Chest x-ray from today shows pulm edema though some improvement June 11: ICU. Breathing good. Creatinine bumped up to 1.53. Did receive a dose of IV Lasix earlier today. Did talk to the patient about my cons of it further going up since she received the Lasix today. Will check creatinine tomorrow. Discontinue fluid restriction. Check her creatinine tomorrow. Will hold off MEL inhibitor tomorrow morning as blood pressure bit on the lower side. And because acute rise in creatinine l June 15: Creatinine stable at 1.53. Discussed with the patient has been. Will be discharged on oral Lasix. Zestril has been held for now. She will follow-up with her PCP Dr. Jeffries and Dr. Crawford from nephrology. Questions answered Past medical history to include: CAD with stent, diabetes, hypertension, hyperlipidemia, osteoporosis, hypothyroid, PAD with stent Social history: Alcohol occasionally. Lives with her . Smoked for 40 years 2 packs a day stopped in 2003 Physical examination: VITAL SIGNS: 97.6, 57, 16, 120 x 66, 98% room air GENERAL: Patient in bed, comfortable EYES: Pupils equal. Conjunctiva normal. HEENT: External appearance of nose and ears normal, oral cavity grossly normal. Chronic decreased hearing NECK: JVD raised; masses not palpable. HEART: First and second heart sounds are normal; no edema. LUNGS: Respiratory rate normal; decreased breath sounds. ABDOMEN: Soft, nontender, liver spleen not palpable, no masses palpable. PSYCH: Alert and oriented x3; mood and affect normal. MUSCULOSKELETAL:No Clubbing/cyanosis;muscles-grossly intact. OA INVESTIGATIONS, reviewed in the clinical context: June 12: Potassium 4 BUN 41 creatinine 1.54 June 11: White count 8.2 hemoglobin 10.2 platelets 328 potassium 3.9 BUN 34 creatinine 1.53 June 10: White count 8.4 hemoglobin 9.9 potassium 4 BUN 23 creatinine 1.23 June 09, 2024: White count 9.2 hemoglobin 10.1 platelets 330 sodium 135 potassium 3.8 creatinine 1.04 Troponin I less than 0.012, 0.018, 0.043 proBNP 3180 TSH 0.758 Influenza type A, type B, RSV, COVID-19: Not detected EKG tracing personally reviewed by ia-sinus rhythm. Left bundle bessie block. Chest x-ray film personally reviewed by ia-cardiomegaly. Pulm edema Renal artery duplex: Heavily calcified atherosclerotic plaque especially mid and distal abdominal aorta Limited visualization of the left kidney. Velocities in the right kidney renal artery elevated but the ratio appears normal. Previous investigations 2D echocardiogram [May 31, 2024] EF 50 to 55% moderate pulmonary hypertension moderate mitral annular calcification mild to moderate concentric LVH Cardiac catheterization [May 30, 2024]: Occluded left main and subtotally occluded RCA. Patent HURT to LAD and patent SVG to left circumflex and patent SVG to RCA. Significant gradient across right iliac artery. Assessment and plan: -Acute flash pulmonary edema, from underlying diastolic dysfunction EF 50 to 55%, causing acute hypoxic respiratory failure: Improved IV Lasix received. Switched over to p.o. Lasix. Cardiology following -Acute severe hypoxic respiratory failure secondary to pulm edema: Improved Initially on BiPAP,. Now on room air -Accelerated hypertension: Improved Patient placed on nitroglycerin drip-discontinued Hold MEL inhibitor because of acute rise in creatinine -Positive troponin from underlying acute CHF. No clinical evidence of ACS -CAD with a prior history of stent and bypass Aspirin. Plavix. Lipitor. Lopressor. Cardiac catheterization on May 30 did not show any stenosis. Patent stent and bypass. Follow-up with Dr. Jeffries -Secondary pulmonary hypertension due to COPD and diastolic CHF -Interstitial lung disease. -COPD in a previous smoker DuoNeb -PAD with prior intervention Aspirin, Plavix, Zetia -Diabetes mellitus type 2, on oral hypoglycemic Jardiance, metformin, and Victoza, Prandin. Follow Accu-Cheks and sliding scale -Primary osteoarthritis Tylenol when necessary -Acute kidney injury secondary to vasomotor nephropathy from cardiorenal syndrome: Worsening Hold MEL inhibitor. Follow-up with Dr. Crawford outpatient -Hyperlipidemia Lipitor -Hypothyroid Synthroid -Essential hypertension Lisinopril-hold , Lopressor 100 mg twice daily -Full code Disposition: Home Past Medical History Past Medical History: Coronary Artery Disease (CAD), Chest Pain / Angina, Diabetes Mellitus, Eye Disorder, GERD/Reflux, Hearing Disorder / Deafness, Hyperlipidemia, Hypertension, Myocardial Infarction (ID), Myocardial Infarction (non Q-wave), Osteoarthritis (OA), Thyroid Disorder, Vascular Disorder Additional Past Medical History / Comment(s): Peripheral Arterial Disease. Glaucoma, has left eye stent. Bilateral hearing aids. slightly sob at times follows with pulminologist Last Myocardial Infarction Date:: 2001 History of Any Multi-Drug Resistant Organisms: None Reported Past Surgical History: Adenoidectomy, Coronary Bypass/CABG, Heart Catheterization, Heart Catheterization With Stent, Tonsillectomy, Tubal Ligation Additional Past Surgical History / Comment(s): Triple bypass in 2019 EXP. LAP 02/2012, STENT TO HEART X1, INFRA RENAL AORTIC STENT, STENTS TO BILATERAL LEGS, AORTOGRAM WITH RUNOFF, bilateral cataracts removed, stent to left eye. Past Anesthesia/Blood Transfusion Reactions: No Reported Reaction Additional Past Anesthesia/Blood Transfusion Reaction / Comment(s): Has never had a blood transfusion. Date of Last Stent Placement:: 2001 Past Psychological History: No Psychological Hx Reported Smoking Status: Former smoker Past Alcohol Use History: Rare Past Drug Use History: None Reported Plan - Discharge Summary Discharge Rx Participant: No New Discharge Prescriptions: New Furosemide [Lasix] 40 mg PO DAILY #30 tab Continue Ezetimibe [Zetia] 10 mg PO DAILY Clopidogrel [Plavix] 75 mg PO DAILY #30 tab Metoprolol Tartrate [Lopressor] 100 mg PO BID-W/MEALS Levothyroxine Sodium [Synthroid] 112 mcg PO AC-BRKFST Empagliflozin [Jardiance] 25 mg PO DAILY Repaglinide [Prandin] 1 mg PO AC-BID Potassium Chloride [Klor-Con 8] 8 meq PO DAILY Liraglutide [Victoza 3-Luiz] 1.8 mg SQ DAILY Cyanocobalamin (Vitamin B-12) [Vitamin B-12] 1,000 mcg PO DAILY Aspirin 81 mg PO DAILY tab Pantoprazole Sodium 40 mg PO AC-BRKFST Lovastatin [Mevacor] 20 mg PO HS Ergocalciferol [Vitamin D2 (1250 Mcg = 11731 Iu)] 1,250 mcg PO Q15D metFORMIN HCL ER [Glucophage XR] 500 mg PO DAILY Discontinued Famotidine [Pepcid] 40 mg PO HS lisinopriL [Zestril] 5 mg PO DAILY Discharge Medication List Ezetimibe [Zetia] 10 mg PO DAILY 01/31/14 [History] Clopidogrel [Plavix] 75 mg PO DAILY #30 tab 12/06/18 [Rx] Empagliflozin [Jardiance] 25 mg PO DAILY 11/13/19 [History] Levothyroxine Sodium [Synthroid] 112 mcg PO AC-BRKFST 11/13/19 [History] Metoprolol Tartrate [Lopressor] 100 mg PO BID-W/MEALS 11/13/19 [History] Cyanocobalamin (Vitamin B-12) [Vitamin B-12] 1,000 mcg PO DAILY 12/12/22 [History] Liraglutide [Victoza 3-Luiz] 1.8 mg SQ DAILY 12/12/22 [History] Potassium Chloride [Klor-Con 8] 8 meq PO DAILY 12/12/22 [History] Repaglinide [Prandin] 1 mg PO AC-BID 12/12/22 [History] Aspirin 81 mg PO DAILY tab 12/16/22 [Rx] Pantoprazole Sodium 40 mg PO AC-BRKFST 01/01/23 [History] Lovastatin [Mevacor] 20 mg PO HS 05/28/24 [History] metFORMIN HCL ER [Glucophage XR] 500 mg PO DAILY 05/28/24 [History] Ergocalciferol [Vitamin D2 (1250 Mcg = 75084 Iu)] 1,250 mcg PO Q15D 06/09/24 [History] Furosemide [Lasix] 40 mg PO DAILY #30 tab 06/12/24 [Rx] Follow up Appointment(s)/Referral(s): Berto Jeffries MD [STAFF PHYSICIAN] - 06/19/24 3:45 pm Karley Winslow MD [Primary Care Provider] - 1-2 days [place] DO [STAFF PHYSICIAN] - 07/18/24 11:00 am Patient Instructions/Handouts: Heart Failure (DC) Discharge Disposition: HOME SELF-CARE
== END 2024-06-12 12:06 | disposition home or self-care (01) | DRG 280 ==
LOC: EC 04:44 → 3SCARD 06:08 → 2SICU 14:38 → 6NMEDSUR 06-11 15:29
PROVIDERS: ADMIT Hospitalist; ATTEND Hospitalist
DX: I13.0 Hypertensive heart and chronic kidney disease with heart failure and stage 1 through stage 4 chronic kidney disease, or unspecified chronic kidney disease (principal); I50.33 Acute on chronic diastolic (congestive) heart failure; I21.4 Non-ST elevation (NSTEMI) myocardial infarction; J96.01 Acute respiratory failure with hypoxia; N17.0 Acute kidney failure with tubular necrosis; I16.1 Hypertensive emergency; Z11.52 Encounter for screening for COVID-19; E03.9 Hypothyroidism, unspecified; Z79.890 Hormone replacement therapy; E11.22 Type 2 diabetes mellitus with diabetic chronic kidney disease; E11.51 Type 2 diabetes mellitus with diabetic peripheral angiopathy without gangrene; E78.5 Hyperlipidemia, unspecified; H91.90 Unspecified hearing loss, unspecified ear; M81.0 Age-related osteoporosis without current pathological fracture; I08.0 Rheumatic disorders of both mitral and aortic valves; I25.10 Atherosclerotic heart disease of native coronary artery without angina pectoris; I25.2 Old myocardial infarction; I27.23 Pulmonary hypertension due to lung diseases and hypoxia; I27.29 Other secondary pulmonary hypertension; I44.7 Left bundle-branch block, unspecified; I70.1 Atherosclerosis of renal artery; J44.9 Chronic obstructive pulmonary disease, unspecified; M19.90 Unspecified osteoarthritis, unspecified site; J84.10 Pulmonary fibrosis, unspecified; M19.91 Primary osteoarthritis, unspecified site; N18.9 Chronic kidney disease, unspecified; Z79.02 Long term (current) use of antithrombotics/antiplatelets; Z79.82 Long term (current) use of aspirin; Z79.84 Long term (current) use of oral hypoglycemic drugs; Z79.899 Other long term (current) drug therapy; Z82.49 Family history of ischemic heart disease and other diseases of the circulatory system; Z87.891 Personal history of nicotine dependence; Z95.1 Presence of aortocoronary bypass graft; Z98.51 Tubal ligation status; Z98.42 Cataract extraction status, left eye; Z98.41 Cataract extraction status, right eye; Z95.5 Presence of coronary angioplasty implant and graft; Z95.820 Peripheral vascular angioplasty status with implants and grafts; Z97.4 Presence of external hearing-aid; Z88.5 Allergy status to narcotic agent
CPT/HCPCS: 36415; 71045; 71046; 80048; 80053; 83036; 83735; 83880; 84132; 84443; 84484; 85025; 85610; 85730; 87636; 93005; 93975; 94640; 94760; 96365; 96366; 96372; 96375; 99291

== ENCOUNTER → 2024-12-01 | Outpatient (CLI) | payer MEDICARE ==
--- NOTE | 2024-12-01 12:24 | CT ---
INDICATION: Patient age:Female; 79 years old; Reason for study: J84.9 INTERSTITIAL PULMONARY DISEASE, UNSPECIFIED; PHH. COMPARISON: CTA chest 05/28/2024, 12/12/2022, 07/20/2021, 11/24/2018, CT chest 10/12/2023 TECHNIQUE: Multiple thin axial images were obtained through the chest at selected intervals. Prone and supine in spiratory along with supine expiratory images were submitted for review. Please note that due to inte rval acquisition images as defined by high-resolution CT protocol the entire lung parenchyma is not e valuated, therefore small nodular densities may not be visualized. Evaluation of vascular structures , viscera and lymphatics is limited due to lack of intravenous contrast administration. One or more C T dose reduction strategies were utilized during this examination. Total DLP 743.30 mGycm. FINDINGS: LUNGS: No honeycombing. Similar subpleural scattered reticular opacities with basilar predominance. N o groundglass opacities. Mild cylindrical bronchiectasis. No acute area of infiltrative or consolidat martínez change. LARGE AIRWAYS: Central airways are patent. No dynamic airway collapse on expiratory imaging. PLEURA: No pleural effusion or thickening. HEART AND PERICARDIUM: The heart is mildly enlarged. There is no pericardial effusion. Mild coronary artery calcifications present. Post-CABG changes. Aortic valvular mitral annulus calcifications. MEDIASTINUM AND VALERIANO: No mediastinal or hilar lymphadenopathy or soft tissue mass. VESSELS: Mild atherosclerotic changes of the thoracic aorta. No thoracic aortic aneurysm. CHEST WALL AND DIAPHRAGM: Normal. LOWER NECK: Normal. UPPER ABDOMEN: Small hiatal hernia. Duodenal diverticulum. MUSCULOSKELETAL: No acute fracture. Median sternotomy wires. The level degenerative changes of the t horacic spine. IMPRESSION: Similar mild chronic nonspecific interstitial changes with mild bronchiectasis. [facility], , 12/01/2024 12:21 PM
== END | disposition home or self-care (01) ==
LOC: RADCTMAIN 10:12
PROVIDERS: ATTEND Internal Medicine
DX: J84.9 Interstitial pulmonary disease, unspecified (principal); J47.9 Bronchiectasis, uncomplicated
CPT/HCPCS: 71250

== ENCOUNTER → 2025-01-01 | Outpatient (CLI) | payer MEDICARE ==
[2025-01-01 15:11] LABS: HGB 9.9 g/dL (12.0-15.0); MCH 21.8 pg (27.0-32.0); MCHC 29.1 g/dL (32.0-37.0); MCV 74.9 FL (80.0-97.0); NRBC Per 100 WBC 0 X 10*3/uL (0.00-0.01); Platelet Count 272 X 10*3/uL (140-440); RBC 4.54 X 10*6/uL (4.10-5.20); RDW 18.5 % (11.5-14.5); WBC 6.65 X 10*3/uL (4.50-10.00)
[2025-01-01 15:12] LABS: Blood Urea Nitrogen 19.8 mg/dL (9.0-27.0); Carbon Dioxide 27.8 mmol/L (21.6-31.8); Chloride 98 mmol/L (96-109); Potassium 3.2 mmol/L (3.5-5.5); Sodium 139 mmol/L (135-145)
== END | disposition home or self-care (01) ==
LOC: LABPAT 09:23
PROVIDERS: ATTEND Internal Medicine Interventional Cardiology
DX: Z01.812 Encounter for preprocedural laboratory examination (principal); I70.213 Atherosclerosis of native arteries of extremities with intermittent claudication, bilateral legs
CPT/HCPCS: 80051; 82565; 84520; 85027

== ENCOUNTER 2025-01-08 05:40 | Day surgery (SDC) | payer MEDICARE ==
[2025-01-08] MEDS: EMPTY BAG 1 BAG with SODIUM CHLORIDE 0.9% 1,000 ML IV SCH (06:18)
[2025-01-08] MEDS: IV FLUID CONTINUATION 1,000 ML IV ONE (06:18)
[2025-01-08 06:21] LABS: Glucose,Whole Blood 155 mg/dL (70-110)
[2025-01-08 06:27] LABS: Basophils # (A) 0.09 10*3/uL (0.00-0.10); Basophils % (A) 1.1 %; Eosinophils # (A) 0.22 10*3/uL (0.04-0.35); Eosinophils % (A) 2.6 %; HGB 10.3 g/dL (12.0-15.0); Lymphocytes # (A) 2.44 10*3/uL (0.90-5.00); Lymphocytes % (A) 29.3 %; MCHC 30.3 g/dL (32.0-37.0); MCV 72.5 fL (80.0-97.0); Mean Platelet Volume 10.1 fL (9.5-12.2); Monocytes # (A) 0.58 10*3/uL (0.20-1.00); Neutrophils # (A) 4.97 10*3/uL (1.80-7.70); Neutrophils % (A) 59.6 %; Platelet Count 313 10*3/uL (140-440); RBC 4.69 10*6/uL (4.10-5.20); RDW 18.2 % (11.5-14.5); WBC 8.33 10*3/uL (4.50-10.00)
[2025-01-08 06:41] LABS: African American GFR (CKD) 56 (>60 ml/min/1.73 sqM); Anion Gap 13 mmol/L; Blood Urea Nitrogen 22 mg/dL (7-17); Calcium 9.6 mg/dL (8.4-10.2); Carbon Dioxide 27 mmol/L (22-30); Chloride 97 mmol/L (98-107); Glucose 156 mg/dL (74-99); Non-African American GFR(CKD) 49 (>60 ml/min/1.73 sqM); Potassium 2.9 mmol/L (3.5-5.1); Sodium 137 mmol/L (137-145)
[2025-01-08] MEDS: MIDAZOLAM 2 MG/2 ML VIAL IVP ONE ×2 (07:35→08:07)
[2025-01-08] MEDS: LIDOCAINE 1% INJ 10MG/ML (20 ML MDV) SQ ONE (07:38)
[2025-01-08] MEDS: HEPARIN SODIUM 1,000 UN/ML (10ML VL) IVP ONE ×3 (08:11→08:46)
[2025-01-08] MEDS: SODIUM CHLORIDE 0.9% 500 ML 500 ML with niCARdipine 6.25 MG, NITROGLYCERIN-D5W PMX 0.05... IV ONE (08:28)
[2025-01-08] MEDS: IOPAMIDOL-370 100ML BTL INJ ONE (09:17)
[2025-01-08] MEDS ORDERED: NALOXONE 0.4 MG/ML 1 ML VIAL IVP PRN (09:18)
--- NOTE | 2025-01-08 09:23 | P.PCN ---
Date of Procedure: 01/08/25 Operative Findings: PERCUTANEOUS PERIPHERAL INTERVENTION Performing physician Berto Jeffries M.D. Procedure performed 1. Successful balloon angioplasty of the right popliteal and bilateral common iliac arteries and right anterior tibial artery 2. Adjunctive use of IVUS and lithotripsy balloon and atherectomy and gradient measurement 3. An aortogram with runoff 4. Ultrasound-guided access of bilateral common femoral artery Indication Symptomatic 79-year-old female patient with known PAD and prior r evascularization Approach Bilateral common femoral artery and right anterior tibial artery Complications None Level of sedation Moderate with a sedation time of 96 minutes Procedure description After obtaining informed consent the patient was brought to the cardiac Cleaning Maid. The right common and left common femoral arteries were cannulated using micropuncture technique under ultrasound guidance a micropuncture wire passed easily then I placed a 5 Albanian and 6 Albanian on the right and left respectively. Subsequently I did cannulate to the right anterior tibial artery using micropuncture technique under ultrasound guidance and micropuncture wire passed easily then I placed a slender 5/6 Albanian sheath at the right anterior tibial artery with a SideArm connected to a cocktail including nitroglycerin and verapamil and heparin. Systemic anticoagulation was initiated using heparin with continuous ACT monitoring. Subsequently I did cross the lesion in the right anterior tibial artery and right popliteal artery and I did IVUS of the right anterior tibial artery and right popliteal artery which showed the diameter of right anterior tibial artery around 3 mm and popliteal about 5 to 6 mm. Atherectomy of the right anterior tibial artery was performed using the Hawk 1 with a small device and then balloon angioplasty was performed using 3 mm balloon with good angiographic results. For the right popliteal I did balloon angioplasty because it was in-stent restenosis using 6 mm balloon and subsequently 6 mm lithotripsy balloon with an angiogram showed good angiographic results. Then finally I did kissing balloon of bilateral iliac using 7 mm balloon. Final angiogram showed good angiographic results and the procedure was completed with no complication Postprocedure management 1. Dual antiplatelet therapy 2. Aggressive cholesterol control 3. Risk factors modification 4. Follow-up with the patient
[2025-01-08] MEDS: SODIUM CHLORIDE 0.9% 1,000 ML in EMPTY BAG 1 BAG IV SCH (13:33)
--- NOTE | 2025-01-08 15:44 | IR ---
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 Imaging during right lower extremity vascular procedure. Total DAP: 23.8 Gycm2. [facility], , 01/08/2025 3:41 PM
[2025-01-08] MEDS: REPAGLINIDE 1 MG TAB PO SCH (17:41)
[2025-01-09 04:48] LABS: African American GFR (CKD) 55 (>60 ml/min/1.73 sqM); Non-African American GFR(CKD) 48 (>60 ml/min/1.73 sqM)
[2025-01-09] MEDS: PANTOPRAZOLE 40 MG TABLET PO SCH (06:02)
[2025-01-09] MEDS: LEVOTHYROXINE 112 MCG TAB PO SCH (06:02)
[2025-01-09] MEDS: DAPAGLIFLOZIN PROPANEDIOL 10 MG TABLET PO SCH (08:19)
[2025-01-09] MEDS: METOPROLOL TARTRATE 50 MG TAB PO SCH (08:19)
[2025-01-09] MEDS: ATORVASTATIN 40 MG TAB PO SCH (08:19)
[2025-01-09] MEDS: EZETIMIBE 10 MG TAB PO SCH (08:19)
[2025-01-09] MEDS: CLOPIDOGREL 75 MG TAB PO SCH (08:19)
[2025-01-09] MEDS: ASPIRIN 81 MG PO SCH (08:19)
[2025-01-09] MEDS: CYANOCOBALAMIN 500 MCG TAB PO SCH (08:19)
[2025-01-09] MEDS: POTASSIUM CHLORIDE ER 10 MEQ TAB.ER.PRT PO SCH (08:19)
[2025-01-09] MEDS: FUROSEMIDE 40 MG TAB PO SCH (08:19)
[2025-01-09] MEDS: ALPRAZolam 0.25 MG TAB PO PRN (12:19)
[2025-01-09 14:26] VITALS: BP 105/60
[2025-01-09 14:50] VITALS: PULSE 95; RESP 16; TEMP 98.8
[2025-01-11] MEDS ORDERED: NON FORMULARY DRUG (Semaglutide [Ozempic] 1 MG/0.75 ML Each) SQ SCH (09:17)
[2025-01-22] MEDS ORDERED: ERGOCALCIFEROL 1,250 MCG (50,000 IU) CAPSULE PO SCH (09:00)
== END 2025-01-09 15:24 | disposition home or self-care (01) ==
LOC: CATHCVL 05:40 → 6NMEDSUR 10:26 → CATHCVL 01-09 15:24
PROVIDERS: ATTEND Internal Medicine Interventional Cardiology
DX: I70.213 Atherosclerosis of native arteries of extremities with intermittent claudication, bilateral legs (principal); I25.10 Atherosclerotic heart disease of native coronary artery without angina pectoris; E78.5 Hyperlipidemia, unspecified; I10 Essential (primary) hypertension; E11.8 Type 2 diabetes mellitus with unspecified complications; Z95.5 Presence of coronary angioplasty implant and graft; Z79.82 Long term (current) use of aspirin; Z79.02 Long term (current) use of antithrombotics/antiplatelets; Z79.899 Other long term (current) drug therapy; Z79.84 Long term (current) use of oral hypoglycemic drugs
CPT/HCPCS: 99152; 99153; 93005; 37220; 37222; 37229; 80048; 82565; 85025; C1894 ×3; C1769 ×2; C1725 ×3; C1714; C1753; C9764; C2623; J2250; J2003; J1644 ×2; Q9967; J2305

== ENCOUNTER → 2025-03-19 | Outpatient (CLI) | payer MEDICARE ==
[2025-03-19 15:12] LABS: HCT 29.2 % (37.2-46.3); HGB 8.1 g/dL (12.0-15.0); MCH 20.8 pg (27.0-32.0); MCHC 27.7 g/dL (32.0-37.0); MCV 74.9 FL (80.0-97.0); Mean Platelet Volume 9.8 FL (9.5-12.2); NRBC Per 100 WBC 0 X 10*3/uL (0.00-0.01); Platelet Count 321 X 10*3/uL (140-440); RDW 20.1 % (11.5-14.5); WBC 8.45 X 10*3/uL (4.50-10.00)
[2025-03-19 15:23] LABS: Blood Urea Nitrogen 21.3 mg/dL (9.0-27.0); Carbon Dioxide 26.3 mmol/L (21.6-31.8); Chloride 97 mmol/L (96-109); Potassium 3.5 mmol/L (3.5-5.5); Sodium 138 mmol/L (135-145)
== END | disposition home or self-care (01) ==
LOC: LABPAT 11:04
PROVIDERS: ATTEND Internal Medicine Interventional Cardiology
DX: Z01.812 Encounter for preprocedural laboratory examination (principal); I25.10 Atherosclerotic heart disease of native coronary artery without angina pectoris
CPT/HCPCS: 80051; 82565; 84520; 85027

== ENCOUNTER 2025-03-22 17:38 | Observation (INO) | payer MEDICARE ==
[2025-03-22 17:55] VITALS: TEMP 97.6
--- NOTE | 2025-03-22 19:11 | ED ---
SOB HPI - General Chief Complaint: Shortness of Breath Stated Complaint: Shortness of breath Time Seen by Provider: 03/22/25 17:50 Source: patient, EMS Mode of arrival: EMS Limitations: no limitations - History of Present Illness Initial Comments: 79-year-old female who presents to the emergency department with respiratory insufficiency. Patient has history of congestive heart failure with triple bypass and stents. She was supposed to have a heart cath yesterday by Dr. Arreguin but this was canceled. Reports that she woke up this morning and was doing all right. Over the course of the day she had increasing swelling in her legs and arms. Patient has been taking her Lasix twice daily as directed without any missed doses. She denies any chest pain. She does not wear oxygen at home. Denies productive cough. No other alleviating, or precipitating modifying factors - Related Data Home Medications Medication Instructions Recorded Confirmed Ezetimibe [Zetia] 10 mg PO DAILY 01/31/14 03/21/25 Empagliflozin [Jardiance] 25 mg PO DAILY 11/13/19 03/21/25 Levothyroxine Sodium [Synthroid] 112 mcg PO AC-BRKFST 11/13/19 03/21/25 Cyanocobalamin (Vitamin B-12) 1,000 mcg PO DAILY 12/12/22 03/21/25 [Vitamin B-12] Potassium Chloride [Klor-Con 8] 8 meq PO DAILY 12/12/22 03/21/25 Repaglinide [Prandin] 1 mg PO AC-BID 12/12/22 03/21/25 Pantoprazole Sodium 40 mg PO AC-BRKFST 01/01/23 03/21/25 metFORMIN HCL ER [Glucophage XR] 500 mg PO DAILY 05/28/24 03/21/25 Ergocalciferol [Vitamin D2 (1250 1,250 mcg PO Q15D 06/09/24 03/21/25 Mcg = 62276 Iu)] Atorvastatin Calcium 40 mg PO DAILY 01/04/25 03/21/25 Semaglutide [Ozempic] 1 mg SQ TH 01/04/25 03/21/25 ALPRAZolam [Xanax] 0.25 mg PO BID PRN 02/20/25 03/21/25 Previous Rx's Medication Instructions Recorded Clopidogrel [Plavix] 75 mg PO DAILY #30 tab 12/06/18 Aspirin 81 mg PO DAILY tab 12/16/22 Furosemide [Lasix] 40 mg PO DAILY #30 tab 06/12/24 Furosemide [Lasix] 20 mg PO 1400 #60 tab 02/22/25 Metoprolol Succinate [Toprol XL] 50 mg PO DAILY #30 tab 02/22/25 Allergies Allergy/AdvReac Type Severity Reaction Status Date / Time hydromorphone HCl AdvReac RESPIRATORY Verified 03/21/25 08:26 [From Dilaudid] DEPRESSION Review of Systems ROS Statement: Those systems with pertinent positive or pertinent negative responses have been documented in the HPI. ROS Other: All systems not noted in ROS Statement are negative. Past Medical History Past Medical History: Coronary Artery Disease (CAD), Chest Pain / Angina, Heart Failure, Diabetes Mellitus, Eye Disorder, GERD/Reflux, Hearing Disorder / Deafness, Hyperlipidemia, Hypertension, Myocardial Infarction ([place]), Myocardial Infarction (non Q-wave), Osteoarthritis (OA), Thyroid Disorder, Vascular Disorder Additional Past Medical History / Comment(s): Peripheral Arterial Disease. Glaucoma, has left eye stent. Bilateral hearing aids. slightly sob at times follows with pulminologist Last Myocardial Infarction Date:: 2001 History of Any Multi-Drug Resistant Organisms: None Reported Past Surgical History: Adenoidectomy, Coronary Bypass/CABG, Heart Catheterization, Heart Catheterization With Stent, Tonsillectomy, Tubal Ligation Additional Past Surgical History / Comment(s): Triple bypass in 2019 EXP. LAP 02/2012, STENT TO HEART X1, INFRA RENAL AORTIC STENT, STENTS TO BILATERAL LEGS, AORTOGRAM WITH RUNOFF, bilateral cataracts removed, stent to left eye. Past Anesthesia/Blood Transfusion Reactions: No Reported Reaction Additional Past Anesthesia/Blood Transfusion Reaction / Comment(s): Has never had a blood transfusion. Date of Last Stent Placement:: 2001 Past Psychological History: No Psychological Hx Reported Smoking Status: Former smoker - Past Family History Mother Family Medical History: Dementia Additional Family Medical History / Comment(s): HEART PROBLEMS. Father Family Medical History: Coronary Artery Disease (CAD), Myocardial Infarction ([place]) Additional Family Medical History / Comment(s): Her father at age 79 with a myocardial infarction. General Exam Limitations: no limitations Course Vital Signs 03/22/25 17:49 Temperature 97.6 F Pulse Rate 86 Respiratory 18 Rate Blood Pressure 108/70 O2 Sat by Pulse 100 Oximetry Medical Decision Making - Medical Decision Making Was pt. sent in by a medical professional or institution (, LOVE, BLEACH ANALYST, urgent care, hospital, or [place] health care facility...) When possible be specific @ -[No] Did you speak to anyone other than the patient for history (EMS, parent, family, police, friend...)? What history was obtained from this source @ -[No] Did you review nursing and triage notes (agree or disagree)? Why? @ -[I reviewed and agree with nursing and triage notes] Were old charts reviewed (outside hosp., previous admission, EMS record, old EKG, old radiological studies, urgent care reports/EKG's, [place] health care facility records)? Report findings @ -[No old charts were reviewed] Differential Diagnosis (chest pain, altered mental status, abdominal pain women, abdominal pain men, vaginal bleeding, weakness, fever, dyspnea, syncope, headache, dizziness, GI bleed, back pain, seizure, CVA, palpatations, mental health, musculoskeletal)? @ -[not applicable] EKG interpreted by me (3pts min.). @ -Yes and demonstrates sinus rhythm with a rate of 85. [place] interval 183. QRS 162. QTc of 476. Intraventricular conduction delay. No acute ST segment elevation X-rays interpreted by me (1pt min.). @ -[None done] CT interpreted by me (1pt min.). @ -[None done] U/S interpreted by me (1pt. min.). @ -[None done] What testing was considered but not performed or refused? (CT, X-rays, U/S, labs)? Why? @ -[None] What meds were considered but not given or refused? Why? @ -[None] Did you discuss the management of the patient with other professionals (professionals i.e. , LOVE, BLEACH ANALYST, lab, RT, psych nurse, social welfare research worker, heavy duty mechanic, teacher, hazard mitigation officer, caser shoe parts)? Give summary @ -[No] Was smoking cessation discussed for >3mins.? @ -[No] Was critical care preformed (if so, how long)? @ -[No] Were there social determinants of health that impacted care today? How? (Homelessness, low income, unemployed, alcoholism, drug addiction, transportation, low edu. Level, literacy, decrease access to med. care, senior living, rehab)? @ -[No] Was there de-escalation of care discussed even if they declined (Discuss DNR or withdrawal of care, Hospice)? DNR status @ -[No] What co-morbidities impacted this encounter? (DM, HTN, Smoking, COPD, CAD, Cancer, CVA, ARF, Chemo, Hep., AIDS, mental health diagnosis, sleep apnea, morbid obesity)? @ -[None] Was patient admitted / discharged? Hospital course, mention meds given and route, prescriptions, significant lab abnormalities, going to OR and other pertinent info. @ -[hospital course] Undiagnosed new problem with uncertain prognosis? @ -[No] Drug Therapy requiring intensive monitoring for toxicity (Heparin, Nitro, Insulin, Cardizem)? @ -[No] Were any procedures done? @ -[No] Diagnosis/symptom? @ -[default] Acute, or Chronic, or Acute on Chronic? @ -[default] Uncomplicated (without systemic symptoms) or Complicated (systemic symptoms)? @ -[default] Side effects of treatment? @ -[No] Exacerbation, Progression, or Severe Exacerbation? @ -[No] Poses a threat to life or bodily function? How? (Chest pain, [place], [place], pneumonia, PE, COPD, DKA, ARF, appy, cholecystitis, CVA, Diverticulitis, Homicidal, Suicidal, threat to staff... and all critical care pts) @ -[No] - Lab Data Result diagrams: 03/22/25 19:11 03/22/25 19:11 Lab Results 03/22/25 03/22/25 03/22/25 Range/Units 19:11 19:11 19:11 WBC 9.47 (4.50-10.00) 10*3/uL RBC 3.66 L (4.10-5.20) 10*6/uL Hgb 8.0 L (12.0-15.0) g/dL Hct 26.7 L (37.2-46.3) % MCV 73.0 L (80.0-97.0) fL MCH 21.9 L (27.0-32.0) pg MCHC 30.0 L (32.0-37.0) g/dL Plt Count 298 (140-440) 10*3/uL MPV 9.8 (9.5-12.2) fL Immature Gran % (Auto) 0.4 % Neutrophils % 78.4 % Lymphocytes % 14.1 % Monocytes % 5.1 % Eosinophils % 1.2 % Basophils % 0.8 % Immature Gran # 0.04 (0.00-0.04) 10*3/uL Neutrophils # 7.42 (1.80-7.70) 10*3/uL Lymphocytes # 1.34 (0.90-5.00) 10*3/uL Monocytes # 0.48 (0.20-1.00) 10*3/uL Eosinophils # 0.11 (0.04-0.35) 10*3/uL Basophils # 0.08 (0.00-0.10) 10*3/uL PT 12.2 (10.0-12.5) sec INR 1.1 (<1.2) APTT 21.5 L (22.0-30.0) sec Sodium 132 L (137-145) mmol/L Potassium 3.4 L (3.5-5.1) mmol/L Chloride 93 L (98-107) mmol/L Carbon Dioxide 22 (22-30) mmol/L Anion Gap 17 mmol/L BUN 26 H (7-17) mg/dL Creatinine 1.25 H (0.52-1.04) mg/dL Est GFR (CKD-EPI)AfAm 47 (>60 ml/min/1.73 sqM) Est GFR (CKD-EPI)NonAf 41 (>60 ml/min/1.73 sqM) Glucose 169 H (74-99) mg/dL Calcium 9.4 (8.4-10.2) mg/dL Magnesium 1.6 (1.6-2.3) mg/dL Total Bilirubin 1.9 H (0.2-1.3) mg/dL AST 31 (14-36) U/L ALT 18 (4-34) U/L Alkaline Phosphatase 80 (38-126) U/L Troponin I (0.000-0.034) ng/mL NT-Pro-B Natriuret Pep 59002 pg/mL Total Protein 6.8 (6.3-8.2) g/dL Albumin 3.9 (3.5-5.0) g/dL 03/22/ Range/Units 19:11 WBC (4.50-10.00) 10*3/uL RBC (4.10-5.20) 10*6/uL Hgb (12.0-15.0) g/dL Hct (37.2-46.3) % MCV (80.0-97.0) fL MCH (27.0-32.0) pg MCHC (32.0-37.0) g/dL Plt Count (140-440) 10*3/uL MPV (9.5-12.2) fL Immature Gran % (Auto) % Neutrophils % % Lymphocytes % % Monocytes % % Eosinophils % % Basophils % % Immature Gran # (0.00-0.04) 10*3/uL Neutrophils # (1.80-7.70) 10*3/uL Lymphocytes # (0.90-5.00) 10*3/uL Monocytes # (0.20-1.00) 10*3/uL Eosinophils # (0.04-0.35) 10*3/uL Basophils # (0.00-0.10) 10*3/uL PT (10.0-12.5) sec INR (<1.2) APTT (22.0-30.0) sec Sodium (137-145) mmol/L Potassium (3.5-5.1) mmol/L Chloride (98-107) mmol/L Carbon Dioxide (22-30) mmol/L Anion Gap mmol/L BUN (7-17) mg/dL Creatinine (0.52-1.04) mg/dL Est GFR (CKD-EPI)AfAm (>60 ml/min/1.73 sqM) Est GFR (CKD-EPI)NonAf (>60 ml/min/1.73 sqM) Glucose (74-99) mg/dL Calcium (8.4-10.2) mg/dL Magnesium (1.6-2.3) mg/dL Total Bilirubin (0.2-1.3) mg/dL AST (14-36) U/L ALT (4-34) U/L Alkaline Phosphatase (38-126) U/L Troponin I <0.012 (0.000-0.034) ng/mL NT-Pro-B Natriuret Pep pg/mL Total Protein (6.3-8.2) g/dL Albumin (3.5-5.0) g/dL Disposition Clinical Impression: Acute CHF Disposition: ADMITTED IP TO THIS [facility] Condition: Stable Is patient prescribed a controlled substance at d/c from ED?: No Referrals: Karley Winslow MD [Primary Care Provider] - 1-2 days Time of Disposition: 20:33 Decision to Admit Reason: Admit from EC Decision Date: 03/22/25 Decision Time: 20:33
--- NOTE | 2025-03-22 19:51 | XR ---
EXAMINATION TYPE: XR chest 2V DATE OF EXAM: 03/22/2025 7:21 PM CLINICAL INDICATION:Female, 79 years old with history of difficulty breathing; FOR[facility]LY [facility] COMPARISON: Chest radiograph 02/21/2025 TECHNIQUE: XR chest 2V Frontal view of the chest. FINDINGS: There is similar mild cardiomegaly present. Atherosclerosis of the aorta. Hazy and patchy interstitia l and airspace opacities bilaterally. No pneumothorax. Trace bilateral pleural effusions are suggeste d. Sternotomy wires are stable no acute osseous abnormalities. IMPRESSION: Findings suggestive with cardiomegaly with a congestive heart process and trace bilateral pleural eff usions. An underlying acute infectious/inflammatory process cannot be excluded. Correlate with clinic al evaluation. [facility], , 03/22/2025 7:49 PM
[2025-03-22 20:25] LABS: Basophils # (A) 0.08 10*3/uL (0.00-0.10); Basophils % (A) 0.8 %; Eosinophils # (A) 0.11 10*3/uL (0.04-0.35); Eosinophils % (A) 1.2 %; HCT 26.7 % (37.2-46.3); Lymphocytes # (A) 1.34 10*3/uL (0.90-5.00); Lymphocytes % (A) 14.1 %; MCH 21.9 pg (27.0-32.0); Mean Platelet Volume 9.8 fL (9.5-12.2); Monocytes # (A) 0.48 10*3/uL (0.20-1.00); Monocytes % (A) 5.1 %; Neutrophils # (A) 7.42 10*3/uL (1.80-7.70); Neutrophils % (A) 78.4 %; Platelet Count 298 10*3/uL (140-440); RBC 3.66 10*6/uL (4.10-5.20); RDW 19.8 % (11.5-14.5); WBC 9.47 10*3/uL (4.50-10.00)
[2025-03-22 20:37] LABS: ALT 18 U/L (4-34); AST 31 U/L (14-36); African American GFR (CKD) 47 (>60 ml/min/1.73 sqM); Albumin 3.9 g/dL (3.5-5.0); Alkaline Phosphatase 80 U/L (38-126); Anion Gap 17 mmol/L; Blood Urea Nitrogen 26 mg/dL (7-17); Calcium 9.4 mg/dL (8.4-10.2); Carbon Dioxide 22 mmol/L (22-30); Chloride 93 mmol/L (98-107); Glucose 169 mg/dL (74-99); Magnesium 1.6 mg/dL (1.6-2.3); Non-African American GFR(CKD) 41 (>60 ml/min/1.73 sqM); Potassium 3.4 mmol/L (3.5-5.1); Sodium 132 mmol/L (137-145); Total Bilirubin 1.9 mg/dL (0.2-1.3); Total Protein 6.8 g/dL (6.3-8.2)
[2025-03-22] MEDS ORDERED: NALOXONE 0.4 MG/ML 1 ML VIAL IV PRN (20:39)
[2025-03-22 20:45] LABS: NT-Pro-B-Type Natriuretic Pept 17700 pg/mL
[2025-03-22 20:49] LABS: INR 1.1 (<1.2); Prothrombin Time 12.2 sec (10.0-12.5)
[2025-03-22 21:00] LABS: Partial Thromboplastin Time 21.5 sec (22.0-30.0)
[2025-03-22] MEDS: FUROSEMIDE 10 MG/ML 4 ML VIAL IV STA (21:40)
[2025-03-23 08:49] LABS: Basophils # (A) 0.07 10*3/uL (0.00-0.10); Basophils % (A) 0.9 %; Eosinophils % (A) 1.2 %; HCT 26.6 % (37.2-46.3); HGB 7.9 g/dL (12.0-15.0); Lymphocytes # (A) 0.89 10*3/uL (0.90-5.00); MCH 21.5 pg (27.0-32.0); MCHC 29.7 g/dL (32.0-37.0); MCV 72.3 fL (80.0-97.0); Mean Platelet Volume 9.7 fL (9.5-12.2); Monocytes # (A) 0.47 10*3/uL (0.20-1.00); Monocytes % (A) 5.8 %; Neutrophils % (A) 80.7 %; Platelet Count 289 10*3/uL (140-440); RBC 3.68 10*6/uL (4.10-5.20); WBC 8.06 10*3/uL (4.50-10.00)
[2025-03-23 09:06] LABS: African American GFR (CKD) 56 (>60 ml/min/1.73 sqM); Anion Gap 14 mmol/L; Blood Urea Nitrogen 24 mg/dL (7-17); Calcium 9.3 mg/dL (8.4-10.2); Carbon Dioxide 25 mmol/L (22-30); Chloride 97 mmol/L (98-107); Glucose 114 mg/dL (74-99); Non-African American GFR(CKD) 48 (>60 ml/min/1.73 sqM); Potassium 3.1 mmol/L (3.5-5.1); Sodium 136 mmol/L (137-145)
[2025-03-23] MEDS ORDERED: ALPRAZolam 0.25 MG TAB PO PRN ×2 (10:19→11:49)
--- NOTE | 2025-03-23 10:31 | P.HPIM ---
History of Present Illness Patient is a pleasant 79-year-old female was brought in because of shortness of breath this point in place and is found to be in heart failure. Patient supposed to get cardiac catheterization by Dr. Arreguin. Patient does have increasing swelling in her legs and arms yesterday. Those resolved at this time patient received 40 mg of IV Lasix patient is history of congestive heart failure EF of around 20 to 25% ischemic cardiomyopathy. Patient appears to be fairly well make at this time patient's proBNP was 17,000 yesterday compared to 14,000 from her previous hospitalizations. Patient uses 40 mg of Lasix in the morning 20 in the evening along with other heart failure medications. Chest x- ray did show some pulmonary edema. REVIEW OF SYSTEMS: All other systems are negative except those mentioned in the HPI PHYSICAL EXAMINATION: GENERAL: The patient is alert and oriented x3, not in any acute distress. Well developed, well nourished. HEENT: Pupils are round and equally reacting to light. EOMI. No scleral icterus. No conjunctival pallor. Normocephalic, atraumatic. No pharyngeal erythema. No thyromegaly. CARDIOVASCULAR: S1 and S2 present. No murmurs, rubs, or gallops. PULMONARY: Chest is clear to auscultation, no wheezing or crackles. ABDOMEN: Soft, nontender, nondistended, normoactive bowel sounds. No palpable organomegaly. MUSCULOSKELETAL: No joint swelling or deformity. EXTREMITIES: No cyanosis, clubbing, or pedal edema. NEUROLOGICAL: Gross neurological examination did not reveal any focal deficits. SKIN: No rashes. Assessment and plan -Congestive heart failure chronic systolic function with mild acute exacerbation. Patient improved with 1 dose of IV Lasix patient was started on oral Lasix. Cardiology will evaluate the patient if patient is going to get cardiac catheterization, patient will be hospitalized otherwise patient will be discharged today. - Acute on chronic systolic dysfunction, ischemic cardiomyopathy EF of around 20 to 25% -Microcytic anemia will obtain a ferritin level patient may need IV iron transfusion. -Coronary disease with CABG and stents in the past - Type II liver disorders - Gastroesophageal flux disease - Hyperlipidemia - Hypertension - Hypothyroidism - Peripheral artery disease Patient is fairly willing at this time possibly of discharge later today if no intervention is being planned by cardiology. DVT prophylaxis the patient is staying patient will be started on Lovenox low- dose Past Medical History Past Medical History: Coronary Artery Disease (CAD), Chest Pain / Angina, Heart Failure, Diabetes Mellitus, Eye Disorder, GERD/Reflux, Hearing Disorder / Deafness, Hyperlipidemia, Hypertension, Myocardial Infarction ([place]), Myocardial Infarction (non Q-wave), Osteoarthritis (OA), Thyroid Disorder, Vascular Disorder Additional Past Medical History / Comment(s): Peripheral Arterial Disease. Glaucoma, has left eye stent. Bilateral hearing aids. slightly sob at times follows with pulminologist Last Myocardial Infarction Date:: 2001 History of Any Multi-Drug Resistant Organisms: None Reported Past Surgical History: Adenoidectomy, Coronary Bypass/CABG, Heart Catheterization, Heart Catheterization With Stent, Tonsillectomy, Tubal Ligation Additional Past Surgical History / Comment(s): Triple bypass in 2019 EXP. LAP 02/2012, STENT TO HEART X1, INFRA RENAL AORTIC STENT, STENTS TO BILATERAL LEGS, AORTOGRAM WITH RUNOFF, bilateral cataracts removed, stent to left eye. Past Anesthesia/Blood Transfusion Reactions: No Reported Reaction Additional Past Anesthesia/Blood Transfusion Reaction / Comment(s): Has never had a blood transfusion. Date of Last Stent Placement:: 2001 Past Psychological History: No Psychological Hx Reported Smoking Status: Former smoker - Past Family History Mother Family Medical History: Dementia Additional Family Medical History / Comment(s): HEART PROBLEMS. Father Family Medical History: Coronary Artery Disease (CAD), Myocardial Infarction ([place]) Additional Family Medical History / Comment(s): Her father at age 79 with a myocardial infarction. Medications and Allergies Home Medications Medication Instructions Recorded Confirmed Type Ezetimibe [Zetia] 10 mg PO DAILY 01/31/14 03/23/25 History Clopidogrel [Plavix] 75 mg PO DAILY #30 tab 12/06/18 03/23/25 Rx Empagliflozin [Jardiance] 25 mg PO DAILY 11/13/19 03/23/25 History Levothyroxine Sodium [Synthroid] 112 mcg PO AC-BRKFST 11/13/19 03/23/25 History Cyanocobalamin (Vitamin B-12) 1,000 mcg PO DAILY 12/12/22 03/23/25 History [Vitamin B-12] Potassium Chloride [Klor-Con 8] 8 meq PO DAILY 12/12/22 03/23/25 History Repaglinide [Prandin] 1 mg PO AC-BID 12/12/22 03/23/25 History Aspirin 81 mg PO DAILY tab 12/16/22 03/23/25 Rx Pantoprazole Sodium 40 mg PO AC-BRKFST 01/01/23 03/23/25 History metFORMIN HCL ER [Glucophage XR] 500 mg PO DAILY 05/28/24 03/23/25 History Ergocalciferol [Vitamin D2 (1250 1,250 mcg PO Q15D 06/09/24 03/23/25 History Mcg = 20642 Iu)] Furosemide [Lasix] 40 mg PO DAILY #30 tab 06/12/24 03/23/25 Rx Atorvastatin Calcium 40 mg PO DAILY 01/04/25 03/23/25 History Semaglutide [Ozempic] 1 mg SQ TH 01/04/25 03/23/25 History ALPRAZolam [Xanax] 0.25 mg PO BID PRN 02/20/25 03/23/25 History Metoprolol Succinate [Toprol XL] 50 mg PO DAILY #30 tab 02/22/25 03/23/25 Rx Furosemide [Lasix] 20 mg PO DAILY@1400 03/23/25 03/23/25 History Allergies Allergy/AdvReac Type Severity Reaction Status Date / Time hydromorphone HCl AdvReac RESPIRATORY Verified 03/23/25 09:44 [From Dilaudid] DEPRESSION Physical Exam Vitals: Vital Signs Temp Pulse Resp BP Pulse Ox 03/23/25 09:00 92 16 122/58 98 03/23/25 06:00 85 16 120/64 96 03/23/25 05:00 82 17 115/67 98 03/23/25 04:00 87 18 121/74 97 03/23/25 03:00 85 16 121/80 98 03/23/25 02:00 83 16 120/64 98 03/23/25 01:00 82 16 104/50 98 03/23/25 00:00 84 16 100/60 98 03/22/25 23:00 85 16 114/60 96 03/22/25 22:00 82 16 113/59 97 03/22/25 21:00 80 16 105/52 97 03/22/25 17:49 97.6 F 86 18 108/70 100 Intake and Output 03/22/25 03/23/25 03/23/25 22:59 06:59 14:59 Other: Weight 62.142 kg Results CBC & Chem 7: 06/27/25 08:10 03/23/25 08:10 Labs: Abnormal Lab Results - Last 24 Hours (Table) 03/22/25 03/22/25 03/22/25 Range/Units 19:11 19:11 19:11 RBC 3.66 L (4.10-5.20) 10*6/uL Hgb 8.0 L (12.0-15.0) g/dL Hct 26.7 L (37.2-46.3) % MCV 73.0 L (80.0-97.0) fL MCH 21.9 L (27.0-32.0) pg MCHC 30.0 L (32.0-37.0) g/dL Lymphocytes # (0.90-5.00) 10*3/uL APTT 21.5 L (22.0-30.0) sec Sodium 132 L (137-145) mmol/L Potassium 3.4 L (3.5-5.1) mmol/L Chloride 93 L (98-107) mmol/L BUN 26 H (7-17) mg/dL Creatinine 1.25 H (0.52-1.04) mg/dL Glucose 169 H (74-99) mg/dL Plasma Lactic Acid Oral (0.7-2.0) mmol/L Total Bilirubin 1.9 H (0.2-1.3) mg/dL 03/22/25 03/23/25 03/23/25 Range/Units 19:11 08:10 08:10 RBC 3.68 L (4.10-5.20) 10*6/uL Hgb 7.9 L (12.0-15.0) g/dL Hct 26.6 L (37.2-46.3) % MCV 72.3 L (80.0-97.0) fL MCH 21.5 L (27.0-32.0) pg MCHC 29.7 L (32.0-37.0) g/dL Lymphocytes # 0.89 L (0.90-5.00) 10*3/uL APTT (22.0-30.0) sec Sodium 136 L (137-145) mmol/L Potassium 3.1 L (3.5-5.1) mmol/L Chloride 97 L (98-107) mmol/L BUN 24 H (7-17) mg/dL Creatinine 1.09 H (0.52-1.04) mg/dL Glucose 114 H (74-99) mg/dL Plasma Lactic Acid Oral 4.3 H* (0.7-2.0) mmol/L Total Bilirubin (0.2-1.3) mg/dL
[2025-03-23] MEDS: metFORMIN 500 MG TAB PO SCH (11:25)
[2025-03-23] MEDS: METOPROLOL SUCCINATE (ER) 50 MG TAB.ER.24H PO SCH (11:27)
[2025-03-23] MEDS: POTASSIUM CHLORIDE ER 20 MEQ TAB.ER PO SCH (11:27)
[2025-03-23] MEDS: CLOPIDOGREL 75 MG TAB PO SCH (11:27)
[2025-03-23] MEDS: PANTOPRAZOLE 40 MG TABLET PO SCH (11:27)
[2025-03-23] MEDS: DAPAGLIFLOZIN PROPANEDIOL 10 MG TABLET PO SCH (11:27)
[2025-03-23] MEDS: LEVOTHYROXINE 112 MCG TAB PO SCH (11:27)
[2025-03-23] MEDS: FUROSEMIDE 40 MG TAB PO SCH (11:30)
--- NOTE | 2025-03-23 11:57 | P.CRDCN ---
History of Present Illness Consult date: 03/23/25 History of present illness: HISTORY OF PRESENTING ILLNESS: 79-year-old female known to Dr. Arreguin Prior history of PAD, aortoiliac disease at the bifurcation site, dilated cardiomyopathy with a EF of 20 to 25% presents to the hospital because of increased worsening shortness of breath and orthopnea symptoms. She was treated for mild HFrEF exacerbation. She was scheduled to have a heart catheterization done on 03/22/2025 as an outpatient as a part of her cardiomyopathy workup. At this time she denies having any active chest pain chest pressure shortness of breath Labs sodium 132 potassium 3.4, BUN 26, creatinine 1.25, lactate 4.3, Trope is less than 0.01, NT-proBNP 17,700, hemoglobin 8 Admission Vitals: 120/80 heart rate 85 Admission EKG: Sinus rhythm, lateral branch block, QRS 162 Chest x-ray shows mild increased pulmonary congestion but no significant con solidation REVIEW OF SYSTEMS: 14 point review of system is negative except what is mentioned above in HPI. PHYSICAL EXAMINATION: Neck: Brisk carotid upstroke, mild elevated JVP Lungs: Minimal crackles in bilateral bases Heart: Regular rate and rhythm, S1-S2, , no murmur or rub. Abdomen: Soft nontender, positive bowel sounds. Extremities: No significant swelling in the bilateral legs Neuro: Alert, oritented, no focal deficits. Detailed neuro exam was not performed. ASSESSMENT: # Mild HFrEF exacerbation # Dilated cardiomyopathy EF of 20 to 25% # Peripheral arterial disease # Type 2 diabetes # Dyslipidemia PLAN: At this time patient is optimized from heart failure standpoint. May proceed with heart catheterization procedure Check for iron and ferritin level, if low, replace with IV and p.o. iron Continue aspirin Plavix Lipitor Continue Farxiga Increase Lasix to 40 mg twice daily After heart catheterization based on kidney function consider adding half tablet Entresto and half tablet Aldactone and reduce potassium supplement Further recommendations to follow heart cath results If no CAD and improvement in LVEF with max tolerated GDMT in next 2-3 months,, consider BiV ICD with cardiac resynchronization Jeremiah Espinosa MD, FACC, RPVI Thank you for allowing [facility] to participate in this patient's care. Feel free to reach out in case of any followup questions. Past Medical History Past Medical History: Coronary Artery Disease (CAD), Chest Pain / Angina, Heart Failure, Diabetes Mellitus, Eye Disorder, GERD/Reflux, Hearing Disorder / Deafness, Hyperlipidemia, Hypertension, Myocardial Infarction (OK), Myocardial Infarction (non Q-wave), Osteoarthritis (OA), Thyroid Disorder, Vascular Disorder Additional Past Medical History / Comment(s): Peripheral Arterial Disease. Glaucoma, has left eye stent. Bilateral hearing aids. slightly sob at times follows with pulminologist Last Myocardial Infarction Date:: 2001 History of Any Multi-Drug Resistant Organisms: None Reported Past Surgical History: Adenoidectomy, Coronary Bypass/CABG, Heart Catheterization, Heart Catheterization With Stent, Tonsillectomy, Tubal Ligation Additional Past Surgical History / Comment(s): Triple bypass in 2019 EXP. LAP 02/2012, STENT TO HEART X1, INFRA RENAL AORTIC STENT, STENTS TO BILATERAL LEGS, AORTOGRAM WITH RUNOFF, bilateral cataracts removed, stent to left eye. Past Anesthesia/Blood Transfusion Reactions: No Reported Reaction Additional Past Anesthesia/Blood Transfusion Reaction / Comment(s): Has never had a blood transfusion. Date of Last Stent Placement:: 2001 Past Psychological History: No Psychological Hx Reported Smoking Status: Former smoker - Past Family History Mother Family Medical History: Dementia Additional Family Medical History / Comment(s): HEART PROBLEMS. Father Family Medical History: Coronary Artery Disease (CAD), Myocardial Infarction (OK) Additional Family Medical History / Comment(s): Her father at age 79 with a myocardial infarction. Medications and Allergies Home Medications Medication Instructions Recorded Confirmed Type Ezetimibe [Zetia] 10 mg PO DAILY 01/31/14 03/23/25 History Clopidogrel [Plavix] 75 mg PO DAILY #30 tab 12/06/18 03/23/25 Rx Empagliflozin [Jardiance] 25 mg PO DAILY 11/13/19 03/23/25 History Levothyroxine Sodium [Synthroid] 112 mcg PO AC-BRKFST 11/13/19 03/23/25 History Cyanocobalamin (Vitamin B-12) 1,000 mcg PO DAILY 12/12/22 03/23/25 History [Vitamin B-12] Potassium Chloride [Klor-Con 8] 8 meq PO DAILY 12/12/22 03/23/25 History Repaglinide [Prandin] 1 mg PO AC-BID 12/12/22 03/23/25 History Aspirin 81 mg PO DAILY tab 12/16/22 03/23/25 Rx Pantoprazole Sodium 40 mg PO AC-BRKFST 01/01/23 03/23/25 History metFORMIN HCL ER [Glucophage XR] 500 mg PO DAILY 05/28/24 03/23/25 History Ergocalciferol [Vitamin D2 (1250 1,250 mcg PO Q15D 06/09/24 03/23/25 History Mcg = 25686 Iu)] Furosemide [Lasix] 40 mg PO DAILY #30 tab 06/12/24 03/23/25 Rx Atorvastatin Calcium 40 mg PO DAILY 01/04/25 03/23/25 History Semaglutide [Ozempic] 1 mg SQ TH 01/04/25 03/23/25 History ALPRAZolam [Xanax] 0.25 mg PO BID PRN 02/20/25 03/23/25 History Metoprolol Succinate [Toprol XL] 50 mg PO DAILY #30 tab 02/22/25 03/23/25 Rx Furosemide [Lasix] 20 mg PO DAILY@1400 03/23/25 03/23/25 History Allergies Allergy/AdvReac Type Severity Reaction Status Date / Time hydromorphone HCl AdvReac RESPIRATORY Verified 03/23/25 09:44 [From Dilaudid] DEPRESSION Physical Exam Vitals: Vital Signs Temp Pulse Resp BP Pulse Ox 03/23/25 09:00 92 16 122/58 98 03/23/25 06:00 85 16 120/64 96 03/23/25 05:00 82 17 115/67 98 03/23/25 04:00 87 18 121/74 97 03/23/25 03:00 85 16 121/80 98 03/23/25 02:00 83 16 120/64 98 03/23/25 01:00 82 16 104/50 98 03/23/25 00:00 84 16 100/60 98 03/22/25 23:00 85 16 114/60 96 03/22/25 22:00 82 16 113/59 97 03/22/25 21:00 80 16 105/52 97 03/22/25 17:49 97.6 F 86 18 108/70 100 Intake and Output 03/22/25 03/23/25 03/23/25 22:59 06:59 14:59 Other: Weight 62.142 kg Results 03/23/25 08:10 03/23/25 08:10 Cardiac Enzymes 03/22/25 03/22/25 Range/Units 19:11 19:11 AST 31 (14-36) U/L Troponin I <0.012 (0.000-0.034) ng/mL Coagulation 03/22/25 Range/Units 19:11 PT 12.2 (10.0-12.5) sec APTT 21.5 L (22.0-30.0) sec CBC 03/22/25 03/23/25 Range/Units 19:11 08:10 WBC 9.47 8.06 (4.50-10.00) 10*3/uL RBC 3.66 L 3.68 L (4.10-5.20) 10*6/uL Hgb 8.0 L 7.9 L (12.0-15.0) g/dL Hct 26.7 L 26.6 L (37.2-46.3) % Plt Count 298 289 (140-440) 10*3/uL Comprehensive Metabolic Panel 03/22/25 03/23/25 Range/Units 19:11 08:10 Sodium 132 L 136 L (137-145) mmol/L Potassium 3.4 L 3.1 L (3.5-5.1) mmol/L Chloride 93 L 97 L (98-107) mmol/L Carbon Dioxide 22 25 (22-30) mmol/L BUN 26 H 24 H (7-17) mg/dL Creatinine 1.25 H 1.09 H (0.52-1.04) mg/dL Glucose 169 H 114 H (74-99) mg/dL Calcium 9.4 9.3 (8.4-10.2) mg/dL AST 31 (14-36) U/L ALT 18 (4-34) U/L Alkaline Phosphatase 80 (38-126) U/L Total Protein 6.8 (6.3-8.2) g/dL Albumin 3.9 (3.5-5.0) g/dL Current Medications Generic Name Dose Route Start Last Admin Trade Name Freq PRN Reason Stop Dose Admin Alprazolam 0.25 mg 03/23/25 10:19 Alprazolam 0.25 Mg Tab PO BID PRN Anxiety Alprazolam 0.25 mg 03/23/25 11:49 Alprazolam 0.25 Mg Tab PO Q6HR PRN Mild Anxiety Aspirin 81 mg 03/24/25 09:00 Aspirin 81 Mg PO DAILY [facility] Atorvastatin Calcium 40 mg 03/24/25 09:00 Atorvastatin 40 Mg Tab PO DAILY [facility] Clopidogrel Bisulfate 75 mg 03/23/25 10:30 03/23/25 11:27 Clopidogrel 75 Mg Tab PO 75 mg DAILY ANGELICA Administration Dapagliflozin 10 mg 03/23/25 10:30 03/23/25 11:27 Dapagliflozin Propanediol 10 Mg Tablet PO 10 mg DAILY ANGELICA Administration Ezetimibe 10 mg 03/24/25 09:00 Ezetimibe 10 Mg Tab PO DAILY [facility] Furosemide 20 mg 03/23/25 14:00 Furosemide 20 Mg Tab PO DAILY@1400 ANGELICA Furosemide 40 mg 03/23/25 10:30 03/23/25 11:30 Furosemide 40 Mg Tab PO 40 mg DAILY [facility] Administration Ferric Sodium Gluconate 125 mg 110 mls @ 100 mls/hr 03/23/25 10:45 / Sodium Chloride IVPB DAILY [facility] Heparin Sodium (Porcine) 10, 1,001 mls @ 999 mls/hr 03/24/25 07:00 000 unit/ Sodium Chloride IRRIGATION 03/24/25 23:00 ONCE PRN INTRA-OP Heparin Sodium (Porcine) 2,500 250.5 mls @ 250 mls/hr 03/24/25 07:00 unit/ Sodium Chloride IRRIGATION 03/24/25 23:00 ONCE PRN INTRA-OP Sodium Chloride 1,000 ml/ IV 1,000 mls @ 75 mls/hr 03/23/25 12:00 Solution IV 03/23/25 17:59 .[id number] [facility] Levothyroxine Sodium 112 mcg 03/23/25 10:30 03/23/25 11:27 Levothyroxine 112 Mcg Tab PO 112 mcg 0630 ANGELICA Administration Metformin HCl 250 mg 03/23/25 10:30 03/23/25 11:25 Metformin 500 Mg Tab PO 250 mg BID ANGELICA Administration Metoprolol Succinate 50 mg 03/23/25 10:30 03/23/25 11:27 Metoprolol Succinate (Er) 50 Mg Tab.Er.24h PO 50 mg DAILY ANGELICA Administration Naloxone HCl 0.2 mg 03/22/25 20:39 Naloxone 0.4 Mg/Ml 1 Ml Vial IV Q2M PRN Opioid Reversal Pantoprazole Sodium 40 mg 03/23/25 10:30 03/23/25 11:27 Pantoprazole 40 Mg Tablet PO 40 mg AC-BRKFST ANGELICA Administration Potassium Chloride 10 meq 03/24/25 09:00 Potassium Chloride Er 10 Meq Tab.Er.Prt PO DAILY ANGELICA Potassium Chloride 40 meq 03/23/25 11:00 03/23/25 11:27 Potassium Chloride Er 20 Meq Tab.Er PO 03/23/25 13:01 40 meq Q2H ANGELICA Administration Intake and Output 03/22/25 03/23/25 03/23/25 22:59 06:59 14:59 Other: Weight 62.142 kg 03/23/25 08:10 03/23/25 08:10
[2025-03-23] MEDS: SODIUM CHLORIDE 0.9% 1,000 ML in EMPTY BAG 1 BAG IV SCH (13:01)
--- NOTE | 2025-03-23 15:04 | P.DS ---
Providers Date of admission: 03/22/25 20:39 Expected date of discharge: 03/23/25 Attending physician: Tammi Gibbs Consults: 03/22/25 20:44 Consult Physician Urgent Consulting Provider: [facility] Consult Reason/Comments: aechf Do you want consulting provider notified?: Yes Primary care physician: Karley Winslow MD Hospital Course: Final diagnosis -Congestive heart failure chronic systolic function with mild acute exacerbation. Patient improved with 1 dose of IV Lasix patient was started on oral Lasix. Cardiology recommending outpatient follow-up with hematology and will also follow-up in the outpatient setting for further cardiac intervention including stress test and/or cardiac catheterization - Acute on chronic systolic dysfunction, ischemic cardiomyopathy EF of around 20 to 25% -Microcytic anemia will obtain a ferritin level patient may need IV iron transfusion. -Coronary disease with CABG and stents in the past - Type II liver disorders - Gastroesophageal flux disease - Hyperlipidemia - Hypertension - Hypothyroidism - Peripheral artery disease DVT prophylaxis the patient is staying patient will be started on Lovenox low- dose Discharge disposition Patient is being discharged in a stable condition with guarded prognosis to home. Patient will follow-up with Dr. Winslow in the outpatient setting upon discharge. Patient is to continue with close outpatient follow-up with hematology and cardiology as scheduled. Patient to follow-up with cardiology Dr. Jeffries outpatient regarding outpatient stress testing and/or cardiac cat heterization. Total time taken is greater than 35 minutes. Hospital course Patient is a pleasant 79-year-old female was brought in because of shortness of breath this point in place and is found to be in heart failure. Patient supposed to get cardiac catheterization by Dr. Arreguin. Patient does have increasing swelling in her legs and arms yesterday. Those resolved at this time patient received 40 mg of IV Lasix patient is history of congestive heart failure EF of around 20 to 25% ischemic cardiomyopathy. Patient appears to be fairly well make at this time patient's proBNP was 17,000 yesterday compared to 14,000 from her previous hospitalizations. Patient uses 40 mg of Lasix in the morning 20 in the evening along with other heart failure medications. Chest x- ray did show some pulmonary edema. Patient was evaluated by cardiology and hemoglobin was noted to be low and recommending outpatient follow-up with hematology and will follow-up with endless belt finisher Dr. Jeffries for outpatient stress testing and/or cardiac catheterization. Patient to follow-up with hematology outpatient and resources will be provided. Recommend repeat labs in the next few days to monitor hemoglobin. Patient is cleared by cardiology. Please refer to cardiology consultation notes for further HPI. PHYSICAL EXAMINATION: GENERAL: The patient is alert and oriented x3, not in any acute distress. Well developed, well nourished. HEENT: Pupils are round and equally reacting to light. EOMI. No scleral icterus. No conjunctival pallor. Normocephalic, atraumatic. No pharyngeal erythema. No thyromegaly. CARDIOVASCULAR: S1 and S2 present. No murmurs, rubs, or gallops. PULMONARY: Chest is clear to auscultation, no wheezing or crackles. ABDOMEN: Soft, nontender, nondistended, normoactive bowel sounds. No palpable organomegaly. MUSCULOSKELETAL: No joint swelling or deformity. EXTREMITIES: No cyanosis, clubbing, or pedal edema. NEUROLOGICAL: Gross neurological examination did not reveal any focal deficits. SKIN: No rashes. Please refer to medication reconciliation sheet for a list of medications. The impression and plan of care has been dictated by Tova Kerr, Nurse Practitioner as directed. Dr. Dorian MD I have performed a history and examination and MDM of this patient, discussed the same with the dictator, and agree with the dictator's assessment and plan as written ,documented as a scribe. Based on total visit time, I have performed more than 50% of the visit. Patient Condition at Discharge: Stable Plan - Discharge Summary New Discharge Prescriptions: New Potassium Chloride ER [K-Dur 20] 20 meq PO DAILY #30 tab Continue Ezetimibe [Zetia] 10 mg PO DAILY Clopidogrel [Plavix] 75 mg PO DAILY #30 tab Levothyroxine Sodium [Synthroid] 112 mcg PO AC-BRKFST Empagliflozin [Jardiance] 25 mg PO DAILY Repaglinide [Prandin] 1 mg PO AC-BID Cyanocobalamin (Vitamin B-12) [Vitamin B-12] 1,000 mcg PO DAILY Aspirin 81 mg PO DAILY tab Pantoprazole Sodium 40 mg PO AC-BRKFST Ergocalciferol [Vitamin D2 (1250 Mcg = 95084 Iu)] 1,250 mcg PO Q15D Furosemide [Lasix] 40 mg PO DAILY #30 tab ALPRAZolam [Xanax] 0.25 mg PO BID PRN PRN Reason: Anxiety metFORMIN HCL ER [Glucophage XR] 500 mg PO DAILY Semaglutide [Ozempic] 1 mg SQ TH Atorvastatin Calcium 40 mg PO DAILY Metoprolol Succinate [Toprol XL] 50 mg PO DAILY #30 tab Furosemide [Lasix] 20 mg PO DAILY@1400 Discontinued Potassium Chloride [Klor-Con 8] 8 meq PO DAILY Discharge Medication List Ezetimibe [Zetia] 10 mg PO DAILY 01/31/14 [History] Clopidogrel [Plavix] 75 mg PO DAILY #30 tab 12/06/18 [Rx] Empagliflozin [Jardiance] 25 mg PO DAILY 11/13/19 [History] Levothyroxine Sodium [Synthroid] 112 mcg PO AC-BRKFST 11/13/19 [History] Cyanocobalamin (Vitamin B-12) [Vitamin B-12] 1,000 mcg PO DAILY 12/12/22 [History] Repaglinide [Prandin] 1 mg PO AC-BID 12/12/22 [History] Aspirin 81 mg PO DAILY tab 12/16/22 [Rx] Pantoprazole Sodium 40 mg PO AC-BRKFST 01/01/23 [History] metFORMIN HCL ER [Glucophage XR] 500 mg PO DAILY 05/28/24 [History] Ergocalciferol [Vitamin D2 (1250 Mcg = 76746 Iu)] 1,250 mcg PO Q15D 06/09/24 [History] Furosemide [Lasix] 40 mg PO DAILY #30 tab 06/12/24 [Rx] Atorvastatin Calcium 40 mg PO DAILY 01/04/25 [History] Semaglutide [Ozempic] 1 mg SQ TH 01/04/25 [History] ALPRAZolam [Xanax] 0.25 mg PO BID PRN 02/20/25 [History] Metoprolol Succinate [Toprol XL] 50 mg PO DAILY #30 tab 02/22/25 [Rx] Furosemide [Lasix] 20 mg PO DAILY@1400 03/23/25 [History] Potassium Chloride ER [K-Dur 20] 20 meq PO DAILY #30 tab 03/23/25 [Rx] Follow up Appointment(s)/Referral(s): Berto Jeffries MD [STAFF PHYSICIAN] - 1 Week Aung Jewell MD [STAFF PHYSICIAN] - 1 Week Karley Winslow MD [Primary Care Provider] - 1-2 days Ambulatory/Diagnostic Orders: Complete Blood Count w/diff [LAB.AMB] Time Frame: 3 Days, Location: None Selected Activity/Diet/Wound Care/Special Instructions: Patient okay for discharge and will follow-up with hematology outpatient regarding anemia Follow-up with cardiology Dr. Jeffries to discuss outpatient stress testing Follow-up with primary care provider on discharge Discharge Disposition: HOME SELF-CARE
[2025-03-23] MEDS: FUROSEMIDE 20 MG TAB PO SCH (15:26)
[2025-03-23] MEDS: SODIUM FERRIC GLUCONAT-SUCROSE 125 MG in SODIUM CHLORIDE 0.9% 100 ML IVPB SCH (15:27)
[2025-03-23 15:57] LABS: % Iron Saturation 5.47 (12.00-45.00)
[2025-03-23 16:22] VITALS: PULSE 90
[2025-03-23 17:16] LABS: Glucose,Whole Blood 261 mg/dL (70-110)
[2025-03-23] MEDS ORDERED: INSULIN LISPRO (HumaLOG) 100 UNIT/ML 10 mL VL SQ SCH (17:30)
[2025-03-23] MEDS ORDERED: REPAGLINIDE 1 MG TAB PO SCH (17:30)
[2025-03-23 18:10] VITALS: BP 104/57; RESP 18
[2025-03-24] MEDS ORDERED: HEPARIN SODIUM,PORCINE 10,000 UNIT in SODIUM CHLORIDE 0.9% 1,000 ML IRRIGATION PRN (07:00)
[2025-03-24] MEDS ORDERED: HEPARIN SODIUM,PORCINE (1 ML) 2,500 UNIT in SODIUM CHLORIDE 0.9% 250 ML IRRIGATION PRN (07:00)
[2025-03-24] MEDS ORDERED: EZETIMIBE 10 MG TAB PO SCH (09:00)
[2025-03-24] MEDS ORDERED: ATORVASTATIN 40 MG TAB PO SCH (09:00)
[2025-03-24] MEDS ORDERED: POTASSIUM CHLORIDE ER 10 MEQ TAB.ER.PRT PO SCH (09:00)
[2025-03-24] MEDS ORDERED: ASPIRIN 81 MG PO SCH (09:00)
== END 2025-03-23 18:08 | disposition home or self-care (01) ==
LOC: EC 17:38 → 6NMEDSUR 20:39
PROVIDERS: ADMIT Hospitalist; ATTEND Hospitalist
DX: I11.0 Hypertensive heart disease with heart failure (principal); I50.23 Acute on chronic systolic (congestive) heart failure; I25.10 Atherosclerotic heart disease of native coronary artery without angina pectoris; D50.9 Iron deficiency anemia, unspecified; K21.9 Gastro-esophageal reflux disease without esophagitis; E78.5 Hyperlipidemia, unspecified; E11.51 Type 2 diabetes mellitus with diabetic peripheral angiopathy without gangrene; E03.9 Hypothyroidism, unspecified; I42.0 Dilated cardiomyopathy; K76.89 Other specified diseases of liver; I25.2 Old myocardial infarction; Z87.891 Personal history of nicotine dependence; Z95.5 Presence of coronary angioplasty implant and graft; Z95.820 Peripheral vascular angioplasty status with implants and grafts; Z79.899 Other long term (current) drug therapy; Z79.84 Long term (current) use of oral hypoglycemic drugs; Z79.890 Hormone replacement therapy; Z79.85 Long-term (current) use of injectable non-insulin antidiabetic drugs; Z79.02 Long term (current) use of antithrombotics/antiplatelets; Z79.82 Long term (current) use of aspirin; Z88.5 Allergy status to narcotic agent; Z82.49 Family history of ischemic heart disease and other diseases of the circulatory system
CPT/HCPCS: 96365; 96366; 96375; 99285; 36415; 93005; 83880; 80053; 80048; 82728; 83540; 83550; 83605 ×2; 83735; 84484; 85025 ×2; 85610; 85730; 71046; G0378 ×2; J2916; J1938

== ENCOUNTER 2025-04-12 15:21 | Inpatient (IN) | payer MEDICARE ==
--- NOTE | 2025-04-12 16:17 | ED ---
General Adult HPI - General Chief complaint: Nausea/Vomiting/Diarrhea Stated complaint: Weakness,NVD Time Seen by Provider: 04/12/25 15:33 Source: patient, EMS Mode of arrival: EMS - History of Present Illness Initial comments: Patient is an 79-year-old female, past medical history of CHF, CAD presenting for generalized weakness. Constipated x 4 to 5 days. Took MiraLAX impinges this morning and had 4 large-volume loose stools. No melena or hematochezia. Today now nausea and vomiting. 4 episodes. Nonbloody nonbilious. Denies chest pain, shortness breath, fevers, chills, abdominal pain, dysuria, hematuria, frequency, endorses cough of clear produce sputum. Denies focal numbness or weakness. Endorses lightheadedness with ambulation. She had called EMS today due to difficulty ambulating due to weakness. - Related Data Home Medications Medication Instructions Recorded Confirmed Ezetimibe [Zetia] 10 mg PO DAILY 01/31/14 04/12/25 Empagliflozin [Jardiance] 25 mg PO DAILY 11/13/19 04/12/25 Levothyroxine Sodium [Synthroid] 112 mcg PO AC-BRKFST 11/13/19 04/12/25 Cyanocobalamin (Vitamin B-12) 1,000 mcg PO DAILY 12/12/22 04/12/25 [Vitamin B-12] Repaglinide [Prandin] 1 mg PO AC-BID 12/12/22 04/12/25 Pantoprazole Sodium 40 mg PO AC-BRKFST 01/01/23 04/12/25 metFORMIN HCL ER [Glucophage XR] 500 mg PO DAILY 05/28/24 04/12/25 Ergocalciferol [Vitamin D2 (1250 1,250 mcg PO Q15D 06/09/24 04/12/25 Mcg = [id number] Iu)] Atorvastatin Calcium 40 mg PO DAILY 01/04/25 04/12/25 ALPRAZolam [Xanax] 0.25 mg PO BID PRN 02/20/25 04/12/25 Furosemide [Lasix] 20 mg PO DAILY@1400 03/23/25 04/12/25 Potassium Chloride ER [K-Dur 20] 10 meq PO BID 04/12/25 04/12/25 Previous Rx's Medication Instructions Recorded Clopidogrel [Plavix] 75 mg PO DAILY #30 tab 12/06/18 Aspirin 81 mg PO DAILY tab 12/16/22 Furosemide [Lasix] 40 mg PO DAILY #30 tab 06/12/24 Metoprolol Succinate [Toprol XL] 50 mg PO DAILY #30 tab 02/22/25 Allergies Allergy/AdvReac Type Severity Reaction Status Date / Time hydromorphone HCl AdvReac RESPIRATORY Verified 04/12/25 17:09 [From Dilaudid] DEPRESSION Review of Systems ROS Statement: Those systems with pertinent positive or pertinent negative responses have been documented in the HPI. ROS Other: All systems not noted in ROS Statement are negative. Past Medical History Past Medical History: Coronary Artery Disease (CAD), Chest Pain / Angina, Heart Failure, Diabetes Mellitus, Eye Disorder, GERD/Reflux, Hearing Disorder / Deafness, Hyperlipidemia, Hypertension, Myocardial Infarction (ND), Myocardial I nfarction (non Q-wave), Osteoarthritis (OA), Thyroid Disorder, Vascular Disorder Additional Past Medical History / Comment(s): Peripheral Arterial Disease. Glaucoma, has left eye stent. Bilateral hearing aids. slightly sob at times follows with pulminologist Last Myocardial Infarction Date:: 2001 History of Any Multi-Drug Resistant Organisms: None Reported Past Surgical History: Adenoidectomy, Coronary Bypass/CABG, Heart Catheterization, Heart Catheterization With Stent, Tonsillectomy, Tubal Ligation Additional Past Surgical History / Comment(s): Triple bypass in 2019 EXP. LAP 02/2012, STENT TO HEART X1, INFRA RENAL AORTIC STENT, STENTS TO BILATERAL LEGS, AORTOGRAM WITH RUNOFF, bilateral cataracts removed, stent to left eye. Past Anesthesia/Blood Transfusion Reactions: No Reported Reaction Additional Past Anesthesia/Blood Transfusion Reaction / Comment(s): Has never had a blood transfusion. Date of Last Stent Placement:: 2001 Past Psychological History: No Psychological Hx Reported Smoking Status: Former smoker Past Alcohol Use History: None Reported Past Drug Use History: None Reported - Past Family History Mother Family Medical History: Dementia Additional Family Medical History / Comment(s): HEART PROBLEMS. Father Family Medical History: Coronary Artery Disease (CAD), Myocardial Infarction (ND) Additional Family Medical History / Comment(s): Her father at age 79 with a myocardial infarction. General Exam - General Exam Comments Initial Comments: PE: CONSTITUTIONAL: No apparent distress, somewhat ill appearing, nontoxic SKIN: Warm, dry, no jaundice, hives or petechiae EYES: Pupils are equally round, extraocular movements intact without nystagmus, clear conjunctiva, non-icteric sclera HENT: Normocephalic, atraumatic,dry mucus membranes, oropharynx clear without exudates NECK: , Full range of motion, normal appearance PULMONARY: Clear to auscultation without wheezes, rhonchi, or rales, normal excursion, no accessory muscle use and no stridor CARDIOVASCULAR: Regular rate, rhythm, normal S1 and S2. No appreciated murmurs, rubs or gallops. Strong radial pulses with intact distal perfusion. 2+ bilateral LE pitting edema GASTROINTESTINAL: Soft, active bowel sounds throughout, non-tender, non- distended, no palpable masses, no rebound or guarding. No hepatosplenomegaly MUSCULOSKELETAL: Extremities have no gross deformity NEUROLOGIC:_a/o x 3, GCS 15, normal mentation and speech. Moves all extremities x 4 without motor or sensory deficit PSYCHIATRIC:_normal mood and affect, thought process is clear and linear Course Vital Signs 04/12/25 04/12/25 04/12/25 15:24 19:00 20:53 Temperature 98.6 F 97.8 F Pulse Rate 96 98 93 Respiratory 16 16 16 Rate Blood Pressure 116/66 106/56 105/49 O2 Sat by Pulse 97 99 98 Oximetry EKG Findings - EKG Comments: EKG Findings:: Sinus rhythm, rate 95 bpm, borderline prolonged QT interval, QTc 470 ms, extreme left axis deviation, left bundle branch block, Medical Decision Making - Medical Decision Making Was pt. sent in by a medical professional or institution (, PA, UNIT MANAGER RN, urgent care, hospital, or [facility]...) When possible be specific @ -No Did you speak to anyone other than the patient for history (EMS, parent, family, police, friend...)? What history was obtained from this source @ -No Did you review nursing and triage notes (agree or disagree)? Why? @ -I reviewed nursing and triage notes states patient presented for generalized weakness nausea vomiting and diarrhea with possible ileus Were old charts reviewed (outside hosp., previous admission, EMS record, old EKG, old radiological studies, urgent care reports/EKG's, [facility] records)? Report findings @ -Medical records reviewed reviewed echocardiogram report from 02/13/2025, showed an ejection fraction from 20 to 25% Differential Diagnosis (chest pain, altered mental status, abdominal pain women, abdominal pain men, vaginal bleeding, weakness, fever, dyspnea, syncope, headache, dizziness, GI bleed, back pain, seizure, CVA, palpatations, mental health, musculoskeletal)? @ -Differential Abdominal Pain Women: Appendicitis, Cholecystitis, diverticulosis, ischemic bowel, pancreatitis, hepatitis, UTI, gastroenteritis, AAA, incarcerated hernia, bowel obstruction, constipation, inflammatory bowel, hepatitis, peptic ulcer disease, splenic infar ction, perforated viscus, ovarian torsion, PID, kidney stone, this is not meant to be an all-inclusive list Differential Weakness: Hypoglycemia, shock, sepsis, hyponatremia, anemia, infection, ND, ETOH, adverse medicine reaction, overdose, stroke, this is not meant to be an all-inclusive list. EKG interpreted by me (3pts min.). @ -As above X-rays interpreted by me (1pt min.). @ -None done CT interpreted by me (1pt min.). @ - reviewed CT I see no evidence of bowel obstruction or perforation U/S interpreted by me (1pt. min.). @ -None done What testing was considered but not performed or refused? (CT, X-rays, U/S, labs)? Why? @ -None What meds were considered but not given or refused? Why? @ -None Did you discuss the management of the patient with other professionals (professionals i.e. , PA, UNIT MANAGER RN, lab, RT, psych nurse, social media content specialist, physician intensivist, teacher, examining officer, caseworker)? Give summary @ -No Was smoking cessation discussed for >3mins.? @ -No Was critical care preformed (if so, how long)? @ -No Were there social determinants of health that impacted care today? How? (Homelessness, low income, unemployed, alcoholism, drug addiction, transportation, low edu. Level, literacy, decrease access to med. care, retirement, rehab)? @ -No Was there de-escalation of care discussed even if they declined (Discuss DNR or withdrawal of care, Hospice)? @ -No What co-morbidities impacted this encounter? (DM, HTN, Smoking, COPD, CAD, Cancer, CVA, ARF, Chemo, Hep., AIDS, mental health diagnosis, sleep apnea, morbid obesity)? @ -CAD, CHF, diabetes, GERD, hyperlipidemia hypertension CAD Was patient admitted / discharged? Hospital course, mention meds given and route, prescriptions, significant lab abnormalities, going to OR and other pertinent info. @ [id number]ub-old female, history as above presenting today for generalized weakness, diarrhea nausea and vomiting. Vital signs stable on arrival. On my assessment patient is chronically ill appearing nontoxic. Does have dry mucous membranes. Abdomen is soft and nontender. She has 2+ lower extremity pitting edema. Denies shortness of breath, lungs are clear to auscultation bilaterally. Since she appears clinically dry we will administer 5 received IV fluid, additionally ordered comprehensive labs, CT abdomen pelvis and chest x-ray. Patient will be given nausea medications. Labs reviewed, hemoglobin 8.2, appears to be at baseline, anion gap of 18, patient is a lactic of 5.1, glucose of 258, I suspect anion gap secondary to lactic acidosis has appeared to DKA, patient is negative ketones in her urine but does show signs of infection, large leukocyte esterase 24 white cells many bacteria. Additionally LFTs are elevated AST/ALT to 236/120 total bilirubin within normal limits, suspect possibly 2/2 dehydration. BNP is elevated 15,600 though this appears to be similar to prior with patient. Patient received 500 IV fluids due to dry mucous membranes and elevated lactic however will withhold further fluids unless necessary. Cefepime ordered as well as blood culture. Updated pt to findings and plan for admission to which she was agreeable. Case discussed with Dr. Briceno, kindly accepted pt for admission. Of note repeat lactic 3.9. Ordered additional 500 cc bolus to help clear lactic. Undiagnosed new problem with uncertain prognosis? @ -No Drug Therapy requiring intensive monitoring for toxicity (Heparin, Nitro, Insulin, Cardizem)? @ -No Were any procedures done? @ -No Diagnosis/symptom? @ UTI, weakness, dehydration Acute, or Chronic, or Acute on Chronic? @ -acute Uncomplicated (without systemic symptoms) or Complicated (systemic symptoms)? complicated Side effects of treatment? @ -No Exacerbation, Progression, or Severe Exacerbation? @ -No Poses a threat to life or bodily function? How? (Chest pain, USA, ND, pneumonia, PE, COPD, DKA, ARF, appy, cholecystitis, CVA, Diverticulitis, Homicidal, Suicidal, threat to staff... and all critical care pts) possibly - Lab Data Result diagrams: 04/12/25 16:26 04/12/25 16:26 Lab Results 04/12/25 04/12/25 04/12/25 Range/Units 16:26 16:26 16:26 WBC 7.28 (4.50-10.00) 10*3/uL RBC 3.86 L (4.10-5.20) 10*6/uL Hgb 8.2 L (12.0-15.0) g/dL Hct 28.4 L (37.2-46.3) % MCV 73.6 L (80.0-97.0) fL MCH 21.2 L (27.0-32.0) pg MCHC 28.9 L (32.0-37.0) g/dL Plt Count 343 (140-440) 10*3/uL MPV 10.1 (9.5-12.2) fL Immature Gran % (Auto) 0.5 % Neutrophils % 80.0 % Lymphocytes % 11.3 % Monocytes % 6.3 % Eosinophils % 0.7 % Basophils % 1.2 % Immature Gran # 0.04 (0.00-0.04) 10*3/uL Neutrophils # 5.82 (1.80-7.70) 10*3/uL Lymphocytes # 0.82 L (0.90-5.00) 10*3/uL Monocytes # 0.46 (0.20-1.00) 10*3/uL Eosinophils # 0.05 (0.04-0.35) 10*3/uL Basophils # 0.09 (0.00-0.10) 10*3/uL Manual Slide Review Performed Poikilocytosis (manual Present Anisocytosis (manual) Present PT 14.2 H (10.0-12.5) sec INR 1.3 H (<1.2) APTT 22.5 (22.0-30.0) sec Sodium 138 (137-145) mmol/L Potassium 4.2 (3.5-5.1) mmol/L Chloride 99 (98-107) mmol/L Carbon Dioxide 21 L (22-30) mmol/L Anion Gap 18 mmol/L BUN 59 H (7-17) mg/dL Creatinine 1.02 (0.52-1.04) mg/dL Est GFR (CKD-EPI)AfAm 60 (>60 ml/min/1.73 sqM) Est GFR (CKD-EPI)NonAf 52 (>60 ml/min/1.73 sqM) Glucose 258 H (74-99) mg/dL Lactic Ac Sepsis Rflx Plasma Lactic Acid Oral (0.7-2.0) mmol/L Calcium 9.4 (8.4-10.2) mg/dL Phosphorus 4.5 (2.5-4.5) mg/dL Magnesium 2.0 (1.6-2.3) mg/dL Total Bilirubin 1.3 (0.2-1.3) mg/dL AST 236 H (14-36) U/L ALT 120 H (4-34) U/L Alkaline Phosphatase 91 (38-126) U/L Troponin I (0.000-0.034) ng/mL NT-Pro-B Natriuret Pep 77825 pg/mL Total Protein 6.9 (6.3-8.2) g/dL Albumin 3.7 (3.5-5.0) g/dL Lipase 217 (23-300) U/L Urine Color Urine Appearance (Clear) Urine pH (5.0-8.0) Ur Specific [place] (1.001-1.035) Urine Protein (Negative) Urine Glucose (UA) (Negative) Urine Ketones (Negative) Urine Blood (Negative) Urine Nitrite (Negative) Urine Bilirubin (Negative) Urine Urobilinogen (<2.0) mg/dL Ur Leukocyte Esterase (Negative) Urine WBC (0-5) /hpf Urine Bacteria (None) /hpf Hyaline Casts (0-2) /lpf Acetone, Qual (Negative) 04/12/25 04/12/25 04/12/25 Range/Units 16:26 16:26 16:26 WBC (4.50-10.00) 10*3/uL RBC (4.10-5.20) 10*6/uL Hgb (12.0-15.0) g/dL Hct (37.2-46.3) % MCV (80.0-97.0) fL MCH (27.0-32.0) pg MCHC (32.0-37.0) g/dL Plt Count (140-440) 10*3/uL MPV (9.5-12.2) fL Immature Gran % (Auto) % Neutrophils % % Lymphocytes % % Monocytes % % Eosinophils % % Basophils % % Immature Gran # (0.00-0.04) 10*3/uL Neutrophils # (1.80-7.70) 10*3/uL Lymphocytes # (0.90-5.00) 10*3/uL Monocytes # (0.20-1.00) 10*3/uL Eosinophils # (0.04-0.35) 10*3/uL Basophils # (0.00-0.10) 10*3/uL Manual Slide Review Poikilocytosis (manual Anisocytosis (manual) PT (10.0-12.5) sec INR (<1.2) APTT (22.0-30.0) sec Sodium (137-145) mmol/L Potassium (3.5-5.1) mmol/L Chloride (98-107) mmol/L Carbon Dioxide (22-30) mmol/L Anion Gap mmol/L BUN (7-17) mg/dL Creatinine (0.52-1.04) mg/dL Est GFR (CKD-EPI)AfAm (>60 ml/min/1.73 sqM) Est GFR (CKD-EPI)NonAf (>60 ml/min/1.73 sqM) Glucose (74-99) mg/dL Lactic Ac Sepsis Rflx Plasma Lactic Acid Oral 5.1 H* (0.7-2.0) mmol/L Calcium (8.4-10.2) mg/dL Phosphorus (2.5-4.5) mg/dL Magnesium (1.6-2.3) mg/dL Total Bilirubin (0.2-1.3) mg/dL AST (14-36) U/L ALT (4-34) U/L Alkaline Phosphatase (38-126) U/L Troponin I 0.022 (0.000-0.034) ng/mL NT-Pro-B Natriuret Pep pg/mL Total Protein (6.3-8.2) g/dL Albumin (3.5-5.0) g/dL Lipase (23-300) U/L Urine Color Urine Appearance (Clear) Urine pH (5.0-8.0) Ur Specific [place] (1.001-1.035) Urine Protein (Negative) Urine Glucose (UA) (Negative) Urine Ketones (Negative) Urine Blood (Negative) Urine Nitrite (Negative) Urine Bilirubin (Negative) Urine Urobilinogen (<2.0) mg/dL Ur Leukocyte Esterase (Negative) Urine WBC (0-5) /hpf Urine Bacteria (None) /hpf Hyaline Casts (0-2) /lpf Acetone, Qual Negative (Negative) 04/12/25 04/12/25 Range/Units 16:37 17:00 WBC (4.50-10.00) 10*3/uL RBC (4.10-5.20) 10*6/uL Hgb (12.0-15.0) g/dL Hct (37.2-46.3) % MCV (80.0-97.0) fL MCH (27.0-32.0) pg MCHC (32.0-37.0) g/dL Plt Count (140-440) 10*3/uL MPV (9.5-12.2) fL Immature Gran % (Auto) % Neutrophils % % Lymphocytes % % Monocytes % % Eosinophils % % Basophils % % Immature Gran # (0.00-0.04) 10*3/uL Neutrophils # (1.80-7.70) 10*3/uL Lymphocytes # (0.90-5.00) 10*3/uL Monocytes # (0.20-1.00) 10*3/uL Eosinophils # (0.04-0.35) 10*3/uL Basophils # (0.00-0.10) 10*3/uL Manual Slide Review Poikilocytosis (manual Anisocytosis (manual) PT (10.0-12.5) sec INR (<1.2) APTT (22.0-30.0) sec Sodium (137-145) mmol/L Potassium (3.5-5.1) mmol/L Chloride (98-107) mmol/L Carbon Dioxide (22-30) mmol/L Anion Gap mmol/L BUN (7-17) mg/dL Creatinine (0.52-1.04) mg/dL Est GFR (CKD-EPI)AfAm (>60 ml/min/1.73 sqM) Est GFR (CKD-EPI)NonAf (>60 ml/min/1.73 sqM) Glucose (74-99) mg/dL Lactic Ac Sepsis Rflx Y Plasma Lactic Acid Oral (0.7-2.0) mmol/L Calcium (8.4-10.2) mg/dL Phosphorus (2.5-4.5) mg/dL Magnesium (1.6-2.3) mg/dL Total Bilirubin (0.2-1.3) mg/dL AST (14-36) U/L ALT (4-34) U/L Alkaline Phosphatase (38-126) U/L Troponin I (0.000-0.034) ng/mL NT-Pro-B Natriuret Pep pg/mL Total Protein (6.3-8.2) g/dL Albumin (3.5-5.0) g/dL Lipase (23-300) U/L Urine Color Colorless Urine Appearance Clear (Clear) Urine pH 5.0 (5.0-8.0) Ur Specific [place] 1.010 (1.001-1.035) Urine Protein Negative (Negative) Urine Glucose (UA) 4+ H (Negative) Urine Ketones Negative (Negative) Urine Blood Negative (Negative) Urine Nitrite Negative (Negative) Urine Bilirubin Negative (Negative) Urine Urobilinogen <2.0 (<2.0) mg/dL Ur Leukocyte Esterase Large H (Negative) Urine WBC 24 H (0-5) /hpf Urine Bacteria Many H (None) /hpf Hyaline Casts 4 H (0-2) /lpf Acetone, Qual (Negative) Disposition Clinical Impression: UTI (urinary tract infection), Generalized weakness Disposition: ADMITTED IP TO THIS HOSP Condition: Stable
[2025-04-12 16:33] LABS: Basophils # (A) 0.09 10*3/uL (0.00-0.10); Basophils % (A) 1.2 %; Eosinophils # (A) 0.05 10*3/uL (0.04-0.35); Eosinophils % (A) 0.7 %; HCT 28.4 % (37.2-46.3); HGB 8.2 g/dL (12.0-15.0); Lymphocytes # (A) 0.82 10*3/uL (0.90-5.00); Lymphocytes % (A) 11.3 %; MCH 21.2 pg (27.0-32.0); MCHC 28.9 g/dL (32.0-37.0); MCV 73.6 fL (80.0-97.0); Monocytes # (A) 0.46 10*3/uL (0.20-1.00); Monocytes % (A) 6.3 %; Neutrophils # (A) 5.82 10*3/uL (1.80-7.70); Neutrophils % (A) 80.0 %; Platelet Count 343 10*3/uL (140-440); RBC 3.86 10*6/uL (4.10-5.20); RDW 22.3 % (11.5-14.5); WBC 7.28 10*3/uL (4.50-10.00)
[2025-04-12 16:44] LABS: ALT 120 U/L (4-34); AST 236 U/L (14-36); African American GFR (CKD) 60 (>60 ml/min/1.73 sqM); Albumin 3.7 g/dL (3.5-5.0); Alkaline Phosphatase 91 U/L (38-126); Anion Gap 18 mmol/L; Blood Urea Nitrogen 59 mg/dL (7-17); Calcium 9.4 mg/dL (8.4-10.2); Carbon Dioxide 21 mmol/L (22-30); Chloride 99 mmol/L (98-107); Glucose 258 mg/dL (74-99); Lipase 217 U/L (23-300); Magnesium 2.0 mg/dL (1.6-2.3); Non-African American GFR(CKD) 52 (>60 ml/min/1.73 sqM); Potassium 4.2 mmol/L (3.5-5.1); Sodium 138 mmol/L (137-145); Total Protein 6.9 g/dL (6.3-8.2)
[2025-04-12 16:53] LABS: NT-Pro-B-Type Natriuretic Pept 15600 pg/mL
[2025-04-12 16:54] LABS: INR 1.3 (<1.2); Partial Thromboplastin Time 22.5 sec (22.0-30.0); Prothrombin Time 14.2 sec (10.0-12.5)
[2025-04-12 17:01] LABS: Bacteria,Urine Many /hpf; Bilirubin,Urine Negative (Negative); Blood,Urine Negative (Negative); Color,Urine Colorless; Glucose,Urine (UA) 4+ (Negative); Hyaline Casts,Urine 4 /lpf (0-2); Ketones,Urine Negative (Negative); Leukocyte Esterase,Urine Large (Negative); Nitrite,Urine Negative (Negative); PH, Urine 5.0 (5.0-8.0); Protein,Urine Negative (Negative); Specific Gravity,Urine 1.010 (1.001-1.035); Urobilinogen,Urine <2.0 mg/dL (<2.0); WBC,Urine 24 /hpf (0-5)
--- NOTE | 2025-04-12 17:11 | XR ---
EXAMINATION TYPE: XR chest 2V DATE OF EXAM: 04/12/2025 5:06 PM COMPARISON: Chest radiographs from 03/22/2025 TECHNIQUE: XR chest 2V Frontal and lateral views of the chest. CLINICAL INDICATION:Female, 79 years old with history of Weakness; FINDINGS: Lungs/Pleura: There is no evidence of pleural effusion, focal consolidation, or pneumothorax. Chroni c interstitial opacities. Pulmonary vascularity: Unremarkable. Heart/mediastinum: Cardiomediastinal silhouette is enlarged and stable. Atherosclerotic calcificatio ns are seen in the aorta. Musculoskeletal: No acute osseous pathology. Midline sternotomy wires are noted and stable. 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 IMPRESSION: Background pulmonary fibrotic changes with no acute cardiopulmonary disease/process. [facility], , 04/12/2025 5:09 PM
[2025-04-12] MEDS: SODIUM CHLORIDE 0.9% 500 ML 500 ML IV ONE (17:15)
[2025-04-12] MEDS: ONDANSETRON 4 MG/2 ML VIAL IVP STA (17:18)
[2025-04-12] MEDS: CEFEPIME 2 GM in SODIUM CHLORIDE 0.9% 100 ML IVPB STA (17:21)
[2025-04-12 17:31] LABS: Anisocytosis (M) Present; Poikilocytosis (M) Present
--- NOTE | 2025-04-12 17:32 | CT ---
EXAMINATION TYPE: CT abdomen pelvis w con CT DLP: 682.3 mGycm, Automated exposure control for dose reduction was used. DATE OF EXAM: 04/12/2025 5:04 PM COMPARISON: CTA chest 02/20/2025 CLINICAL INDICATION:Female, 79 years old with history of diarrhea now vomiting, weakness; vomiting ab d pain TECHNIQUE: Standard CT of the abdomen and pelvis following the administration of 100 cc of Isovue 3 00 IV contrast material. Coronal and sagittal reformats were performed. FINDINGS: LOWER CHEST: Redemonstration of bibasilar subpleural reticular pulmonary fibrotic changes. Trace bila teral pleural effusions. Cardiomegaly. Mitral annulus calcifications. Sternotomy wires. ABDOMEN LIVER: Unremarkable GALLBLADDER AND BILE DUCTS: Layering increased densities within the lumen consistent with gallstones are present. No biliary ductal dilatation. PANCREAS: Unremarkable. SPLEEN: Unremarkable. ADRENAL GLANDS: Unremarkable. KIDNEYS AND URETERS: No evidence of hydronephrosis or renal calculus. The kidneys enhance symmetrical ly. Nonspecific bilateral perinephric fat stranding. PELVIS BLADDER: Circumferential wall thickening of the urinary bladder measuring up to 7 mm. The urinary trena dder is underdistended. No significant perivesicular fat stranding. REPRODUCTIVE: Unremarkable. ABDOMEN & PELVIS STOMACH AND BOWEL: Small hiatal hernia. Proximal duodenal diverticulum. The appendix is within normal limits. Distal colonic diverticulosis without evidence for acute diverticulitis. No focal bowel wall thickening or stranding inflammatory changes identified. No pneumatosis. No evidence of bowel obstru ction. PERITONEUM: No evidence of pneumoperitoneum or free fluid. VASCULATURE: Severe atherosclerotic calcifications are present throughout the abdominal aorta and its branches. No evidence of aortic aneurysm. High-grade stenosis involving the origin and proximal SMA secondary to calcified and noncalcified plaque. Moderate stenosis of the origin of the celiac axis se condary to calcified plaque. Moderate stenosis of the origins of bilateral renal artery secondary to calcified plaque. Moderate stenosis of the origin of the YSABEL secondary to calcified plaque. There is significant caliber narrowing of the aorta secondary to calcified plaque. Bilateral common iliac emi ry stents identified with severe atherosclerotic plaque within both common iliac arteries. These are patent. Proximal right superficial femoral artery stent identified. Appears patent. Stable pelvic phl eboliths. MUSCULOSKELETAL: No acute osseous abnormalities. Degenerative changes of the pubic symphysis. Multile nilda anterior osteophytosis of the lower thoracic spine. LYMPH NODES: No evidence for lymphadenopathy. SOFT TISSUE/ABDOMINAL WALL: Small fat filled ventral wall epigastric hernia with defect measuring up to 2.5 cm in diameter. Calcifications along the midline anterior abdominal wall. IMPRESSION: 1. Circumferential wall thickening of the urinary bladder without significant fat stranding. Correlat e for cystitis versus underdistention with urinalysis. 2. Colonic diverticulosis without evidence for acute diverticulitis. 3. Severe atherosclerotic disease of the aorta and its branches. Bilateral common iliac artery stents and right superficial femoral artery stent identified. These appear patent. Severe stenosis involvin g the origin and proximal SMA secondary to calcified and noncalcified plaque. At least moderate steno sis of the other aortic branches secondary to calcified plaque. Redemonstration of bibasilar pulmonar y fibrotic changes. [facility], , 04/12/2025 5:30 PM
[2025-04-12] MEDS ORDERED: NALOXONE 0.4 MG/ML 1 ML VIAL IV PRN (19:35)
[2025-04-12] MEDS ORDERED: ONDANSETRON 4 MG/2 ML VIAL IVP PRN (19:46)
[2025-04-12] MEDS ORDERED: ACETAMINOPHEN TAB 325 MG TAB PO PRN (19:46)
[2025-04-12 20:11] LABS: VBG HCO3 23.0 mmol/L (24-28); VBG PCO2 38.0 mmHg (37-51); VBG PH 7.38 (7.31-7.41)
[2025-04-12] MEDS: FAMOTIDINE 20 MG TAB PO SCH (20:51)
[2025-04-12] MEDS: POTASSIUM CHLORIDE ER 10 MEQ TAB.ER.PRT PO SCH (20:58)
[2025-04-13] MEDS: SODIUM CHLORIDE 0.9% 500 ML 500 ML IV ONE (05:31)
[2025-04-13 06:00] LABS: Glucose,Whole Blood 149 mg/dL (70-110)
[2025-04-13] MEDS: INSULIN LISPRO (HumaLOG) 100 UNIT/ML 10 mL VL SQ SCH (06:29)
[2025-04-13] MEDS: REPAGLINIDE 1 MG TAB PO SCH (06:33)
[2025-04-13] MEDS: PANTOPRAZOLE 40 MG TABLET PO SCH (06:33)
[2025-04-13] MEDS: LEVOTHYROXINE 112 MCG TAB PO SCH (06:33)
[2025-04-13] MEDS ORDERED: cefTRIAXone IN SWFI 1,000 MG/10 ML SYRINGE IVP SCH (09:00)
[2025-04-13] MEDS: CYANOCOBALAMIN 500 MCG TAB PO SCH (09:17)
[2025-04-13] MEDS: ASPIRIN 81 MG PO SCH (09:17)
[2025-04-13] MEDS: FUROSEMIDE 40 MG TAB PO SCH (09:17)
[2025-04-13] MEDS: EZETIMIBE 10 MG TAB PO SCH (09:17)
[2025-04-13] MEDS: DAPAGLIFLOZIN PROPANEDIOL 10 MG TABLET PO SCH (09:17)
[2025-04-13] MEDS: CLOPIDOGREL 75 MG TAB PO SCH (09:17)
[2025-04-13] MEDS: METOPROLOL SUCCINATE (ER) 50 MG TAB.ER.24H PO SCH (09:18)
[2025-04-13] MEDS: metFORMIN 500 MG TAB PO SCH (09:18)
--- NOTE | 2025-04-13 09:56 | P.CRDCN ---
History of Present Illness Consult date: 04/13/25 History of present illness: This is a 79-year-old female who is a patient of Dr. Arreguin has past medical history of CAD status post CABG with HURT to LAD, SVG to left circumflex, SVG to RCA as well as PAD with prior stent angioplasty of bilateral iliac and bilateral SFA and right anterior tibial artery as well as hypertension, hyperlipidemia, carotid atherosclerosis, ischemic cardiomyopathy with reduced ejection fraction of 20-25%, valvular heart disease and CKD. Cardiology service has been consulted to evaluate for heart failure exacerbation. Patient was recently admitted to the hospital for acute on chronic exacerbation of heart failure. This time patient reports that she has been endorsing nausea, vomiting, diarrhea and fatigue since 4 days. Her symptoms started after she took [id number] stool softener for constipation. Patient reports that she is otherwise not endorsing any chest pain, shortness of breath or worsening leg edema and has been compliant with her cardiac medications. Patient denies abdominal pain, melena and hematochezia. She has recently follow-up with Dr. Arreguin in the office for a possible cardiac catheterization. However, patient has chronic anemia and was supposed to see bacteriology professor Dr. Jewell for further workup/cl earance before cardiac catheterization. Her appointment is in early April. Her most recent echocardiogram was January 2025 which revealed EF of 20 to 25% with mild to moderate aortic insufficiency and moderate MR. Her previous echocardiogram was in May 2024 with LVEF of 55%. Labs and data at this admission: WBC 7.2, hemoglobin 8.2, hematocrit 28.4, platelet count 343, sodium 138, potassium 4.2, BUN 59, creatinine 1.02, lactic acid 3.8 improved to 1.6, AST 236, ALT 120, NT proBNP 14978, troponin I negative, lipase 217. EKG EKG shows normal sinus rhythm with normal axis deviation with left bundle branch block noted. Nonspecific ST-T wave changes also noted. Chest x-ray c shows no acute cardiopulmonary disease process. Review of systems: Pertinent positives and negatives as discussed in HPI, a complete review of systems was performed and all other systems are negative. Physical examination: Vital signs reviewed General: non toxic, no distress Head: atraumatic, normocephalic, symmetric Eyes: EOMI, no lid lag, anicteric sclera, pupils equal round reactive to light ENT: Nose and ears atraumatic Neck: No cervical lymphadenopathy, trachea midline, supple Mouth: no lip lesion, mucus membranes moist Cardiovascular: S1S2 reg, systolic murmur, positive dorsalis pedis pulse bilater al, 1+ bilateral lower extremity edema Lungs: Crackles bilaterally with no wheezing or rales. No use of accessory muscles Abdominal: soft, nontender to palpation, no guarding Neuro: CN II-XI grossly intact, no gross focal neuro deficits Psych: Alert, oriented, appropriate affect Assessment: #Mild acute on chronic HFrEF with EF of 20 to 25% #Dilated ischemic cardiomyopathy #Transaminitis #History of COPD with prior CABG #History of PAD with prior stenting #Hypertension #Hyperlipidemia #Carotid atherosclerosis #Chronic kidney disease #Iron deficiency anemia #Plan: Resume home cardiac medications Order 1 dose of IV Lasix 40 mg Consult heme-onc for iron deficiency anemia Order liver ultrasound No need to obtain echocardiogram Monitor JOCELYNE, daily weights, electrolytes renal function Dictation was produced using [employer] dictation software. Please excuse any grammatical, word or spelling errors. Past Medical History Past Medical History: Coronary Artery Disease (CAD), Chest Pain / Angina, Heart Failure, Diabetes Mellitus, Eye Disorder, GERD/Reflux, Hearing Disorder / Deafness, Hyperlipidemia, Hypertension, Myocardial Infarction (MD), Myocardial Infarction (non Q-wave), Osteoarthritis (OA), Thyroid Disorder, Vascular Disorder Additional Past Medical History / Comment(s): Peripheral Arterial Disease. Glaucoma, has left eye stent. Bilateral hearing aids. slightly sob at times follows with pulminologist Last Myocardial Infarction Date:: 2001 History of Any Multi-Drug Resistant Organisms: None Reported Past Surgical History: Adenoidectomy, Coronary Bypass/CABG, Heart Catheterization, Heart Catheterization With Stent, Tonsillectomy, Tubal Ligation Additional Past Surgical History / Comment(s): Triple bypass in 2019 EXP. LAP 02/2012, STENT TO HEART X1, INFRA RENAL AORTIC STENT, STENTS TO BILATERAL LEGS, AORTOGRAM WITH RUNOFF, bilateral cataracts removed, stent to left eye. Past Anesthesia/Blood Transfusion Reactions: No Reported Reaction Additional Past Anesthesia/Blood Transfusion Reaction / Comment(s): Has never had a blood transfusion. Date of Last Stent Placement:: 2001 Past Psychological History: No Psychological Hx Reported Smoking Status: Former smoker Past Alcohol Use History: None Reported Past Drug Use History: None Reported - Past Family History Mother Family Medical History: Dementia Additional Family Medical History / Comment(s): HEART PROBLEMS. Father Family Medical History: Coronary Artery Disease (CAD), Myocardial Infarction (MD) Additional Family Medical History / Comment(s): Her father at age 79 with a myocardial infarction. Medications and Allergies Home Medications Medication Instructions Recorded Confirmed Type Ezetimibe [Zetia] 10 mg PO DAILY 01/31/14 04/12/25 History Clopidogrel [Plavix] 75 mg PO DAILY #30 tab 12/06/18 04/12/25 Rx Empagliflozin [Jardiance] 25 mg PO DAILY 11/13/19 04/12/25 History Levothyroxine Sodium [Synthroid] 112 mcg PO AC-BRKFST 11/13/19 04/12/25 History Cyanocobalamin (Vitamin B-12) 1,000 mcg PO DAILY 12/12/22 04/12/25 History [Vitamin B-12] Repaglinide [Prandin] 1 mg PO AC-BID 12/12/22 04/12/25 History Aspirin 81 mg PO DAILY tab 12/16/22 04/12/25 Rx Pantoprazole Sodium 40 mg PO AC-BRKFST 01/01/23 04/12/25 History metFORMIN HCL ER [Glucophage XR] 500 mg PO DAILY 05/28/24 04/12/25 History Ergocalciferol [Vitamin D2 (1250 1,250 mcg PO Q15D 06/09/24 04/12/25 History Mcg = 18512 Iu)] Furosemide [Lasix] 40 mg PO DAILY #30 tab 06/12/24 04/12/25 Rx Atorvastatin Calcium 40 mg PO DAILY 01/04/25 04/12/25 History ALPRAZolam [Xanax] 0.25 mg PO BID PRN 02/20/25 04/12/25 History Metoprolol Succinate [Toprol XL] 50 mg PO DAILY #30 tab 02/22/25 04/12/25 Rx Furosemide [Lasix] 20 mg PO DAILY@1400 03/23/25 04/12/25 History Potassium Chloride ER [K-Dur 20] 10 meq PO BID 04/12/25 04/12/25 History Allergies Allergy/AdvReac Type Severity Reaction Status Date / Time hydromorphone HCl AdvReac RESPIRATORY Verified 04/12/25 17:09 [From Dilaudid] DEPRESSION Physical Exam Vitals: Vital Signs Temp Pulse Pulse Resp BP BP Pulse Ox 04/13/25 03:09 98.2 F 86 16 88/57 93 L 04/12/25 23:35 98.2 F 88 16 106/64 98 04/12/25 22:00 97.8 F 90 18 105/62 96 04/12/25 21:51 98.0 F 95 16 109/54 99 04/12/25 20:53 97.8 F 93 16 105/49 98 04/12/25 19:00 98 16 106/56 99 04/12/25 15:24 98.6 F 96 16 116/66 97 Intake and Output 04/12/25 04/13/25 04/13/25 22:59 06:59 14:59 Intake Total 460 Balance 460 Intake: Oral 460 Other: Voiding Method Toilet # Voids 2 1 # Bowel Movements 1 Weight 61.235 kg 61.1 kg Results 04/12/25 16:26 04/12/25 16:26 Cardiac Enzymes 04/12/25 04/12/25 Range/Units 16:26 16:26 AST 236 H (14-36) U/L Troponin I 0.022 (0.000-0.034) ng/mL Coagulation 04/12/25 Range/Units 16:26 PT 14.2 H (10.0-12.5) sec APTT 22.5 (22.0-30.0) sec CBC 04/12/25 Range/Units 16:26 WBC 7.28 (4.50-10.00) 10*3/uL RBC 3.86 L (4.10-5.20) 10*6/uL Hgb 8.2 L (12.0-15.0) g/dL Hct 28.4 L (37.2-46.3) % Plt Count 343 (140-440) 10*3/uL Comprehensive Metabolic Panel 04/12/25 Range/Units 16:26 Sodium 138 (137-145) mmol/L Potassium 4.2 (3.5-5.1) mmol/L Chloride 99 (98-107) mmol/L Carbon Dioxide 21 L (22-30) mmol/L BUN 59 H (7-17) mg/dL Creatinine 1.02 (0.52-1.04) mg/dL Glucose 258 H (74-99) mg/dL Calcium 9.4 (8.4-10.2) mg/dL AST 236 H (14-36) U/L ALT 120 H (4-34) U/L Alkaline Phosphatase 91 (38-126) U/L Total Protein 6.9 (6.3-8.2) g/dL Albumin 3.7 (3.5-5.0) g/dL Current Medications Generic Name Dose Route Start Last Admin Trade Name Freq PRN Reason Stop Dose Admin Acetaminophen 650 mg 04/12/25 19:46 Acetaminophen Tab 325 Mg Tab PO Q6HR PRN Mild Pain or Fever > 100.5 Alprazolam 0.25 mg 04/12/25 20:40 Alprazolam 0.25 Mg Tab PO BID PRN Anxiety Aspirin 81 mg 04/13/25 09:00 04/13/25 09:17 Aspirin 81 Mg PO 81 mg DAILY ANGELICA Administration Atorvastatin Calcium 40 mg 04/13/25 09:00 Atorvastatin 40 Mg Tab PO DAILY ANGELICA Clopidogrel Bisulfate 75 mg 04/13/25 09:00 04/13/25 09:17 Clopidogrel 75 Mg Tab PO 75 mg DAILY ANGELICA Administration Cyanocobalamin 1,000 mcg 04/13/25 09:00 04/13/25 09:17 Cyanocobalamin 500 Mcg Tab PO 1,000 mcg DAILY ANGELICA Administration Dapagliflozin 10 mg 04/13/25 09:00 04/13/25 09:17 Dapagliflozin Propanediol 10 Mg Tablet PO 10 mg DAILY ANGELICA Administration Ezetimibe 10 mg 04/13/25 09:00 04/13/25 09:17 Ezetimibe 10 Mg Tab PO 10 mg DAILY ANGELICA Administration Ergocalciferol 1,250 mcg 04/27/25 09:00 Ergocalciferol 1,250 Mcg (50,000 Iu) Capsule PO Q15D ANGELICA Furosemide 20 mg 04/13/25 14:00 Furosemide 20 Mg Tab PO DAILY@1400 ANGELICA Furosemide 40 mg 04/13/25 09:00 04/13/25 09:17 Furosemide 40 Mg Tab PO 40 mg DAILY ANGELICA Administration Ceftriaxone Sodium 1 gm/ 50 mls @ 100 mls/hr 04/13/25 09:00 04/13/25 09:17 Sodium Chloride IVPB 100 mls/hr Q24HR ANGELICA Administration Protocol Insulin Human Lispro 0 unit 04/13/25 07:30 04/13/25 06:29 Insulin Lispro (Humalog) 100 Unit/Ml 10 Ml Vl SQ Not Given ACHS ANGELICA Protocol Levothyroxine Sodium 112 mcg 04/13/25 07:30 04/13/25 06:33 Levothyroxine 112 Mcg Tab PO 112 mcg AC-BRKFST ANGELICA Administration Metformin HCl 250 mg 04/13/25 09:00 04/13/25 09:18 Metformin 500 Mg Tab PO 250 mg BID ANGELICA Administration Metoprolol Succinate 50 mg 04/13/25 09:00 04/13/25 09:18 Metoprolol Succinate (Er) 50 Mg Tab.Er.24h PO 50 mg DAILY ANGELICA Administration Naloxone HCl 0.2 mg 04/12/25 19:35 Naloxone 0.4 Mg/Ml 1 Ml Vial IV Q2M PRN Opioid Reversal Ondansetron HCl 4 mg 04/12/25 19:46 Ondansetron 4 Mg/2 Ml Vial IVP Q8HR PRN Nausea And Vomiting Pantoprazole Sodium 40 mg 04/13/25 07:30 04/13/25 06:33 Pantoprazole 40 Mg Tablet PO 40 mg AC-BRKFST ANGELICA Administration Potassium Chloride 10 meq 04/12/25 21:00 04/13/25 09:27 Potassium Chloride Er 10 Meq Tab.Er.Prt PO Not Given BID ANGELICA Repaglinide 1 mg 04/13/25 07:30 04/13/25 06:36 Repaglinide 1 Mg Tab PO Not Given AC-BID ANGELICA Intake and Output 04/12/25 04/13/25 04/13/25 22:59 06:59 14:59 Intake Total 460 Balance 460 Intake: Oral 460 Other: Voiding Method Toilet # Voids 2 1 # Bowel Movements 1 Weight 61.235 kg 61.1 kg 04/12/25 16:26 04/12/25 16:26
[2025-04-13] MEDS: ATORVASTATIN 40 MG TAB PO SCH ×2 (10:34→20:44)
[2025-04-13] MEDS: FUROSEMIDE 10 MG/ML 4 ML VIAL IV STA (11:00)
[2025-04-13 11:29] LABS: Glucose,Whole Blood 299 mg/dL (70-110)
[2025-04-13 11:55] VITALS: BMI 24.6
[2025-04-13] MEDS: FUROSEMIDE 20 MG TAB PO SCH (15:06)
--- NOTE | 2025-04-13 15:27 | US ---
EXAMINATION TYPE: US liver DATE OF EXAM: 04/13/2025 COMPARISON: CT(04/12/2025) CLINICAL INDICATION: Female, 79 years old with history of Transaminitis; TECHNIQUE: Grayscale and color Doppler imaging of the right upper quadrant. FINDINGS: EXAM MEASUREMENTS: Liver Length: 15.1 cm Gallbladder Wall: 0.5 cm CBD: 0.7 cm, color Doppler imaging was utilized to isolate the common bile duct for measurement. Right Kidney: 9.7x4.2x4.9 cm SAND BOBBER NOTES: slightly limited due to overlying bowel/gas Pancreas: Tail obscured by overlying bowel gas Liver: Slightly difficult to penetrate, heterogenous course echotexture Gallbladder: ?Thickened edematous wall, ?multiple tiny echogenic foci Evidence for sonographic Wesley's sign: No CBD: wnl Right Kidney: No hydronephrosis or masses seen IMPRESSION: 1. Thickened gallbladder arvizu with bladder sludge correlate for signs and symptoms of cholecystitis . 2. Hepatic steatosis. [facility], , 04/13/2025 3:25 PM
[2025-04-13] MEDS: SODIUM FERRIC GLUCONAT-SUCROSE 125 MG in SODIUM CHLORIDE 0.9% 100 ML IVPB SCH (16:11)
[2025-04-13 16:44] LABS: Glucose,Whole Blood 221 mg/dL (70-110)
--- NOTE | 2025-04-13 17:43 | P.HPIM ---
History of Present Illness H&P Date: 04/13/25 Chief Complaint: Feeling weak Pleasant 79-year-old female follow-up with PCP Dr. Karley Winslow. Medical condition include CHF with diastolic dysfunction, essential hypertension, CAD with coronary bypass, secondary pulmonary hypertension interstitial lung disease, COPD, PAD with stents, diabetes, chronic kidney disease, hyperlipidemia hypothyroid essential hypertension. Patient for a week was very constipated. No bowel movement. At the baseline normally has 1 maybe 2 bowel movements a week. She was given a laxative by the visiting nurse. Had a large bowel movement very hard followed by some diarrhea. Subsequently patient became very weak. No vomited. Decreased appetite. No fever no chills. Denies abdominal pain. Patient has had a very dry mouth. Review of systems: GEN.: Tired EYES: [None] HEENT: [None] NECK: [None] RESPIRATORY: [None] CARDIOVASCULAR: [None] GASTROINTESTINAL: [As above] GENITOURINARY: [None] MUSCULOSKELETAL: [Joint pains LYMPHATICS: [None] HEMATOLOGICAL: [None] PSYCHIATRY: [None] NEUROLOGICAL: [Does use a scooter] Social history: Alcohol occasionally. Lives with her . Smoked for 40 years 2 packs a day stopped in 2003 Physical examination: VITAL SIGNS: 98.6, 96, 16, 116 x 66, 97% room air GENERAL: BMI 24.6, reclining bed awake tired EYES: Pupils equal. Conjunctiva normal. HEENT: External appearance of nose and ears normal, oral cavity grossly normal. Decreased hearing NECK: JVD raised; masses not palpable. HEART: First and second heart sounds are normal; no edema. LUNGS: Respiratory rate i normal, decreased l basal crackles ABDOMEN: Soft, nontender, liver spleen not palpable, no masses palpable. PSYCH: Alert and oriented x3; mood and affect normal. MUSCULOSKELETAL:No Clubbing/cyanosis;muscles-grossly intact. OA Neurological: Cranial nerves grossly intact. Power sensation grossly intact INVESTIGATIONS, reviewed in the clinical context: Liver ultrasound: Thickened gallbladder arvizu with bladder sludge. Hepatic steatosis. April 12, 2025: White count 7.2 hemoglobin 8.2 platelets 343 sodium 138 potassium 4.2. 59 creatinine 1.02 Lactic acid 5.1 repeat 3.9 AST 236 ALT 120 troponin I 0.022 proBNP 53970 UA glucose 4+ negative for nitrite Serum acetone negative Chest x-ray film personally reviewed by ri-cardiomegaly CT abdomen pelvis: Circumferential wall thickening of the urinary bladder. Colonic diverticulosis. Severe atherosclerotic disease without evidence branches. Bilateral common iliac artery stents and right superficial femoral artery stent identified. Patent. Severe stenosis involving the origin of the proximal SFA secondary to calcified and noncalcified plaque. At least moderate stenosis of the aortic branches secondary to calcified plaque. Basilar pulmonary fibrotic changes. Previous investigations 2D echocardiogram [May 31, 2024] EF 50 to 55% moderate pulmonary hypertension moderate mitral annular calcification mild to moderate concentric LVH Cardiac catheterization [May 30, 2024]: Occluded left main and subtotally occluded RCA. Patent HURT to LAD and patent SVG to left circumflex and patent SVG to RCA. Significant gradient across right iliac artery. Renal artery duplex: Heavily calcified atherosclerotic plaque especially mid and distal abdominal aorta Limited visualization of the left kidney. Velocities in the right kidney renal artery elevated but the ratio appears normal. Assessment and plan: - Acute medical asthenia following decreased appetite. Patient was constipated for 1 week. Followed by a combination for laxative. Had a massive bowel movement with very hard stool. Followed by diarrhea. Gentle hydration -Chronic congestive heart failure from diastolic dysfunction EF 50 to 55%,: Given high resting BNP, repeat 2D echo to check for LV function. Clinically does not appear to be in acute congestive heart failure. -Essential hypertension Toprol-XL 50 mg a day -CAD with a prior history of stent and bypass Aspirin. Plavix. Lipitor. Toprol-XL Cardiac catheterization on May 2024 did not show any stenosis. Patent stent and bypass. Beamer Operator Dr. 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 -COPD in a previous smoker DuoNeb, as needed - Hepatic steatosis. - Hard of hearing - Colonic diverticulosis, asymptomatic - Lactic acidosis, type II from decreased oral intake clinical dehydration initially -PAD with stent to both the legs in December 2024, with Dr. Jeffries Aspirin, Plavix, Zetia - Transaminitis. Nonobstructive picture. Hepatic steatosis. Hold Lipitor for now. Patient has no right upper quadrant tenderness. - Questionable gallstones -Diabetes mellitus type 2, on oral hypoglycemic Jardiance,, metformin, Prandin. Follow Accu-Cheks and sliding scale -Primary osteoarthritis Tylenol when necessary -Chronic kidney disease stage III likely nephrosclerosis and diabetic nephr opathy -Hyperlipidemia Lipitor, Zetia -Hypothyroid Synthroid 112 mcg a day -Essential hypertension Lopressor, -Full code Care was discussed with the patient at the bedside. Gentle hydration. Repeat 2D echo. Repeat CMP in the morning. Hold morning dose of Lasix. Past Medical History Past Medical History: Coronary Artery Disease (CAD), Chest Pain / Angina, Heart Failure, Diabetes Mellitus, Eye Disorder, GERD/Reflux, Hearing Disorder / Deafn ess, Hyperlipidemia, Hypertension, Myocardial Infarction (NC), Myocardial Infarction (non Q-wave), Osteoarthritis (OA), Thyroid Disorder, Vascular Disorder Additional Past Medical History / Comment(s): Peripheral Arterial Disease. Glaucoma, has left eye stent. Bilateral hearing aids. slightly sob at times follows with pulminologist Last Myocardial Infarction Date:: 2001 History of Any Multi-Drug Resistant Organisms: None Reported Past Surgical History: Adenoidectomy, Coronary Bypass/CABG, Heart Catheterization, Heart Catheterization With Stent, Tonsillectomy, Tubal Ligation Additional Past Surgical History / Comment(s): Triple bypass in 2019 EXP. LAP 02/2012, STENT TO HEART X1, INFRA RENAL AORTIC STENT, STENTS TO BILATERAL LEGS, AORTOGRAM WITH RUNOFF, bilateral cataracts removed, stent to left eye. Past Anesthesia/Blood Transfusion Reactions: No Reported Reaction Additional Past Anesthesia/Blood Transfusion Reaction / Comment(s): Has never had a blood transfusion. Date of Last Stent Placement:: 2001 Past Psychological History: No Psychological Hx Reported Smoking Status: Former smoker Past Alcohol Use History: None Reported Past Drug Use History: None Reported - Past Family History Mother Family Medical History: Dementia Additional Family Medical History / Comment(s): HEART PROBLEMS. Father Family Medical History: Coronary Artery Disease (CAD), Myocardial Infarction (NC) Additional Family Medical History / Comment(s): Her father at age 79 with a myocardial infarction. Medications and Allergies Home Medications Medication Instructions Recorded Confirmed Type Ezetimibe [Zetia] 10 mg PO DAILY 01/31/14 04/12/25 History Clopidogrel [Plavix] 75 mg PO DAILY #30 tab 12/06/18 04/12/25 Rx Empagliflozin [Jardiance] 25 mg PO DAILY 11/13/19 04/12/25 History Levothyroxine Sodium [Synthroid] 112 mcg PO AC-BRKFST 11/13/19 04/12/25 History Cyanocobalamin (Vitamin B-12) 1,000 mcg PO DAILY 12/12/22 04/12/25 History [Vitamin B-12] Repaglinide [Prandin] 1 mg PO AC-BID 12/12/22 04/12/25 History Aspirin 81 mg PO DAILY tab 12/16/22 04/12/25 Rx Pantoprazole Sodium 40 mg PO AC-BRKFST 01/01/23 04/12/25 History metFORMIN HCL ER [Glucophage XR] 500 mg PO DAILY 05/28/24 04/12/25 History Ergocalciferol [Vitamin D2 (1250 1,250 mcg PO Q15D 06/09/24 04/12/25 History Mcg = 58869 Iu)] Furosemide [Lasix] 40 mg PO DAILY #30 tab 06/12/24 04/12/25 Rx Atorvastatin Calcium 40 mg PO DAILY 01/04/25 04/12/25 History ALPRAZolam [Xanax] 0.25 mg PO BID PRN 02/20/25 04/12/25 History Metoprolol Succinate [Toprol XL] 50 mg PO DAILY #30 tab 02/22/25 04/12/25 Rx Furosemide [Lasix] 20 mg PO DAILY@1400 03/23/25 04/12/25 History Potassium Chloride ER [K-Dur 20] 10 meq PO BID 04/12/25 04/12/25 History Allergies Allergy/AdvReac Type Severity Reaction Status Date / Time hydromorphone HCl AdvReac RESPIRATORY Verified 04/12/25 17:09 [From Dilaudid] DEPRESSION Physical Exam Vitals: Vital Signs Temp Pulse Pulse Resp BP BP Pulse Ox 04/13/25 12:00 83 107/67 98 04/13/25 08:00 98.0 F 95 16 109/58 96 04/13/25 03:09 98.2 F 86 16 88/57 93 L 04/12/25 23:35 98.2 F 88 16 106/64 98 04/12/25 22:00 97.8 F 90 18 105/62 96 04/12/25 21:51 98.0 F 95 16 109/54 99 04/12/25 20:53 97.8 F 93 16 105/49 98 04/12/25 19:00 98 16 106/56 99 Intake and Output 07/04/13/25 04/13/25 06:59 14:59 22:59 Intake Total 460 Balance 460 Intake: Oral 460 Other: Voiding Method Toilet Toilet # Voids 2 1 1 # Bowel Movements 1 1 1 Weight 61.1 kg 61.1 kg Results CBC & Chem 7: 04/12/25 16:26 04/12/25 16:26 Labs: Abnormal Lab Results - Last 24 Hours (Table) 04/12/25 04/12/25 04/12/25 Range/Units 16:26 19:58 19:58 Lymphocytes # 0.82 L (0.90-5.00) 10*3/uL VBG HCO3 23 L (24-28) mmol/L POC Glucose (mg/dL) (70-110) mg/dL Plasma Lactic Acid Oral 3.9 H* (0.7-2.0) mmol/L 04/12/25 04/13/25 04/13/25 Range/Units 23:28 05:52 11:28 Lymphocytes # (0.90-5.00) 10*3/uL VBG HCO3 (24-28) mmol/L POC Glucose (mg/dL) 149 H 299 H (70-110) mg/dL Plasma Lactic Acid Oral 3.8 H* (0.7-2.0) mmol/L 04/13/25 Range/Units 16:43 Lymphocytes # (0.90-5.00) 10*3/uL VBG HCO3 (24-28) mmol/L POC Glucose (mg/dL) 221 H (70-110) mg/dL Plasma Lactic Acid Oral (0.7-2.0) mmol/L Thrombosis Risk Factor Assmnt - Choose All That Apply Any of the Below Risk Factors Present?: Yes Each Factor Represents 1 point: Medical pt on bed rest, Sepsis (< 1month), Swollen legs (current) Each Risk Factor Represents 3 Points: Age 75 years or older Other congenital or acquired thrombophilia - If yes, enter type in comment: No Thrombosis Risk Factor Assessment Total Risk Factor Score: 6 Thrombosis Risk Factor Assessment Level: High Risk
[2025-04-13] MEDS: SODIUM CHLORIDE 0.45% 1,000 ML IV SCH (18:50)
--- NOTE | 2025-04-13 19:14 | P.CONS ---
History of Present Illness - Reason for Consult Consult date: 04/13/25 anemia Requesting physician: Mario Elkins - Chief Complaint weakness, constipation - History of Present Illness Patient is a 79-year-old female with a significant history of congestive heart failure, CAD, CABG. She is on dual antiplatelet therapy with aspirin and P lavix. Consult was placed for iron deficiency anemia. Patient presented to emergency room with multiple complaints with generalized weakness over 1 week, constipation, nausea vomiting and decreased oral intake. Reports intermittent lightheadedness with positional changes. Shortness of breath is stable with no acute changes. At today's visit, she is reporting improvement in symptoms. Patient had admission last month at which time iron studies showed ferritin 34.1, iron saturation 5.47. Patient reports she was started on oral iron and took 3-4 doses but stopped due to constipation. She states she underwent colonoscopy approximately 1 [address] Ferguson which showed no abnormal findings. Has never underwent EGD in the past. On admit hemoglobin noted at 8.2, MCV 73.6. WBC 7.2, platelets 343,000. Upon review of EMR, anemia noted since , ost recently been in the 8 range. Patient denies any recent oral blood in stool or melena. Creatinine 1.02, GFR 52. UA suspicious for UTI. Lactic acid elevated 5.1. Bilirubin 1.3. AST 236, ALT T120, ALP 91. BNP 15,600. Chest x-ray showed pulmonary fibrotic changes with no acute cardiopulmonary processes. CT abdomen pelvis shows circumferential wall thickening of the urinary bladder without significant fat stranding. Colonic diverticulosis. Severe atherosclerotic disease of aorta and its branches. Review of Systems 10 point ROS is negative except as stated in the HPI Past Medical History Past Medical History: Coronary Artery Disease (CAD), Chest Pain / Angina, Heart Failure, Diabetes Mellitus, Eye Disorder, GERD/Reflux, Hearing Disorder / Deafness, Hyperlipidemia, Hypertension, Myocardial Infarction (IA), Myocardial Infarction (non Q-wave), Osteoarthritis (OA), Thyroid Disorder, Vascular Disorder Additional Past Medical History / Comment(s): Peripheral Arterial Disease. Glaucoma, has left eye stent. Bilateral hearing aids. slightly sob at times follows with pulminologist Last Myocardial Infarction Date:: 2001 History of Any Multi-Drug Resistant Organisms: None Reported Past Surgical History: Adenoidectomy, Coronary Bypass/CABG, Heart Catheterization, Heart Catheterization With Stent, Tonsillectomy, Tubal Ligation Additional Past Surgical History / Comment(s): Triple bypass in 2019 EXP. LAP 02/2012, STENT TO HEART X1, INFRA RENAL AORTIC STENT, STENTS TO BILATERAL LEGS, AORTOGRAM WITH RUNOFF, bilateral cataracts removed, stent to left eye. Past Anesthesia/Blood Transfusion Reactions: No Reported Reaction Additional Past Anesthesia/Blood Transfusion Reaction / Comm: Has never had a blood transfusion. Date of Last Stent Placement:: 2001 Past Psychological History: No Psychological Hx Reported Smoking Status: Former smoker Past Alcohol Use History: None Reported Past Drug Use History: None Reported - Past Family History Mother Family Medical History: Dementia Additional Family Medical History / Comment(s): HEART PROBLEMS. Father Family Medical History: Coronary Artery Disease (CAD), Myocardial Infarction (IA) Additional Family Medical History / Comment(s): Her father at age 79 with a myocardial infarction. Medications and Allergies Home Medications Medication Instructions Recorded Confirmed Type Ezetimibe [Zetia] 10 mg PO DAILY 01/31/14 04/12/25 History Clopidogrel [Plavix] 75 mg PO DAILY #30 tab 12/06/18 04/12/25 Rx Empagliflozin [Jardiance] 25 mg PO DAILY 11/13/19 04/12/25 History Levothyroxine Sodium [Synthroid] 112 mcg PO AC-BRKFST 11/13/19 04/12/25 History Cyanocobalamin (Vitamin B-12) 1,000 mcg PO DAILY 12/12/22 04/12/25 History [Vitamin B-12] Repaglinide [Prandin] 1 mg PO AC-BID 12/12/22 04/12/25 History Aspirin 81 mg PO DAILY tab 12/16/22 04/12/25 Rx Pantoprazole Sodium 40 mg PO AC-BRKFST 01/01/23 04/12/25 History metFORMIN HCL ER [Glucophage XR] 500 mg PO DAILY 05/28/24 04/12/25 History Ergocalciferol [Vitamin D2 (1250 1,250 mcg PO Q15D 06/09/24 04/12/25 History Mcg = 13370 Iu)] Furosemide [Lasix] 40 mg PO DAILY #30 tab 06/12/24 04/12/25 Rx Atorvastatin Calcium 40 mg PO DAILY 01/04/25 04/12/25 History ALPRAZolam [Xanax] 0.25 mg PO BID PRN 02/20/25 04/12/25 History Metoprolol Succinate [Toprol XL] 50 mg PO DAILY #30 tab 02/22/25 04/12/25 Rx Furosemide [Lasix] 20 mg PO DAILY@1400 03/23/25 04/12/25 History Potassium Chloride ER [K-Dur 20] 10 meq PO BID 04/12/25 04/12/25 History Allergies Allergy/AdvReac Type Severity Reaction Status Date / Time hydromorphone HCl AdvReac RESPIRATORY Verified 04/12/25 17:09 [From Dilaudid] DEPRESSION Physical Exam Vitals: Vital Signs Temp Pulse Pulse Resp BP BP Pulse Ox 04/13/25 12:00 83 107/67 98 04/13/25 08:00 98.0 F 95 16 109/58 96 04/13/25 03:09 98.2 F 86 16 88/57 93 L 04/12/25 23:35 98.2 F 88 16 106/64 98 04/12/25 22:00 97.8 F 90 18 105/62 96 04/12/25 21:51 98.0 F 95 16 109/54 99 04/12/25 20:53 97.8 F 93 16 105/49 98 04/12/25 19:00 98 16 106/56 99 Intake and Output 04/13/25 04/13/25 04/13/25 06:59 14:59 22:59 Intake Total 460 Balance 460 Intake: Oral 460 Other: Voiding Method Toilet Toilet # Voids 2 1 1 # Bowel Movements 1 1 1 Weight 61.1 kg 61.1 kg - Constitutional General appearance: average body habitus, no acute distress - EENT Eyes: anicteric sclerae, EOMI ENT: hearing grossly normal - Respiratory breathing is even and unlabored - Cardiovascular skin warm and dry - Gastrointestinal General gastrointestinal: soft, no tenderness - Integumentary Integumentary: no cyanotic, no jaundiced - Musculoskeletal Musculoskeletal: generalized weakness - Psychiatric Psychiatric: A&O x's 3 Results CBC & Chem 7: 04/12/25 16:26 04/12/25 16:26 Labs: Abnormal Lab Results - Last 24 Hours (Table) 04/12/25 04/12/25 04/12/25 Range/Units 16:26 16:26 16:26 RBC 3.86 L (4.10-5.20) 10*6/uL Hgb 8.2 L (12.0-15.0) g/dL Hct 28.4 L (37.2-46.3) % MCV 73.6 L (80.0-97.0) fL MCH 21.2 L (27.0-32.0) pg MCHC 28.9 L (32.0-37.0) g/dL Lymphocytes # 0.82 L (0.90-5.00) 10*3/uL PT 14.2 H (10.0-12.5) sec INR 1.3 H (<1.2) VBG HCO3 (24-28) mmol/L Carbon Dioxide 21 L (22-30) mmol/L BUN 59 H (7-17) mg/dL Glucose 258 H (74-99) mg/dL POC Glucose (mg/dL) (70-110) mg/dL Plasma Lactic Acid Oral (0.7-2.0) mmol/L AST 236 H (14-36) U/L ALT 120 H (4-34) U/L Urine Glucose (UA) (Negative) Ur Leukocyte Esterase (Negative) Urine WBC (0-5) /hpf Urine Bacteria (None) /hpf Hyaline Casts (0-2) /lpf 04/12/25 04/12/25 04/12/25 Range/Units 16:26 16:37 19:58 RBC (4.10-5.20) 10*6/uL Hgb (12.0-15.0) g/dL Hct (37.2-46.3) % MCV (80.0-97.0) fL MCH (27.0-32.0) pg MCHC (32.0-37.0) g/dL Lymphocytes # (0.90-5.00) 10*3/uL PT (10.0-12.5) sec INR (<1.2) VBG HCO3 23 L (24-28) mmol/L Carbon Dioxide (22-30) mmol/L BUN (7-17) mg/dL Glucose (74-99) mg/dL POC Glucose (mg/dL) (70-110) mg/dL Plasma Lactic Acid Oral 5.1 H* (0.7-2.0) mmol/L AST (14-36) U/L ALT (4-34) U/L Urine Glucose (UA) 4+ H (Negative) Ur Leukocyte Esterase Large H (Negative) Urine WBC 24 H (0-5) /hpf Urine Bacteria Many H (None) /hpf Hyaline Casts 4 H (0-2) /lpf 04/12/25 04/12/25 04/13/25 Range/Units 19:58 23:28 05:52 RBC (4.10-5.20) 10*6/uL Hgb (12.0-15.0) g/dL Hct (37.2-46.3) % MCV (80.0-97.0) fL MCH (27.0-32.0) pg MCHC (32.0-37.0) g/dL Lymphocytes # (0.90-5.00) 10*3/uL PT (10.0-12.5) sec INR (<1.2) VBG HCO3 (24-28) mmol/L Carbon Dioxide (22-30) mmol/L BUN (7-17) mg/dL Glucose (74-99) mg/dL POC Glucose (mg/dL) 149 H (70-110) mg/dL Plasma Lactic Acid Oral 3.9 H* 3.8 H* (0.7-2.0) mmol/L AST (14-36) U/L ALT (4-34) U/L Urine Glucose (UA) (Negative) Ur Leukocyte Esterase (Negative) Urine WBC (0-5) /hpf Urine Bacteria (None) /hpf Hyaline Casts (0-2) /lpf 04/13/25 Range/Units 11:28 RBC (4.10-5.20) 10*6/uL Hgb (12.0-15.0) g/dL Hct (37.2-46.3) % MCV (80.0-97.0) fL MCH (27.0-32.0) pg MCHC (32.0-37.0) g/dL Lymphocytes # (0.90-5.00) 10*3/uL PT (10.0-12.5) sec INR (<1.2) VBG HCO3 (24-28) mmol/L Carbon Dioxide (22-30) mmol/L BUN (7-17) mg/dL Glucose (74-99) mg/dL POC Glucose (mg/dL) 299 H (70-110) mg/dL Plasma Lactic Acid Oral (0.7-2.0) mmol/L AST (14-36) U/L ALT (4-34) U/L Urine Glucose (UA) (Negative) Ur Leukocyte Esterase (Negative) Urine WBC (0-5) /hpf Urine Bacteria (None) /hpf Hyaline Casts (0-2) /lpf Chest x-ray: report reviewed CT scan - abdomen: report reviewed CT scan - pelvis: report reviewed Assessment and Plan (1) Iron deficiency anemia Current Visit: Yes Status: Acute Code(s): D50.9 - IRON DEFICIENCY ANEMIA, UNSPECIFIED SNOMED Code(s): 53930872 (2) Generalized weakness Current Visit: Yes Status: Acute Code(s): R53.1 - WEAKNESS SNOMED Code(s): 28794837 (3) UTI (urinary tract infection) Current Visit: Yes Status: Acute Code(s): N39.0 - URINARY TRACT INFECTION, S ITE NOT SPECIFIED SNOMED Code(s): 46396564 (4) CAD (coronary artery disease) Current Visit: No Status: Acute Code(s): I25.10 - ATHSCL HEART DISEASE OF [place] CORONARY ARTERY W/O ANG PCTRS SNOMED Code(s): 11352666 (5) Congestive heart failure Current Visit: No Status: Acute Code(s): I50.9 - HEART FAILURE, UNSPECIFIED SNOMED Code(s): 77665652 Plan: Iron deficiency anemia: History of congestive heart failure, CAD, CABG. She is on dual antiplatelet therapy with aspirin and Plavix. Denies oral blood in stool and melena. Reports she underwent colonoscopy approximately 1 to [address] Ferguson which showed no abnormal findings. Has never underwent EGD in the past. - Patient had admission last month at which time iron studies showed ferritin 34.1, iron saturation 5.47. She was started on oral iron and took 3-4 doses but stopped due to constipation. - On admit hemoglobin noted at 8.2, MCV 73.6. platelets 343,000. Upon review of EMR, anemia noted since 2018/2018, most recently been in the 8 range. - Based on iron studies from 3 weeks ago, parenteral iron x 4 doses ordered. Concern for possible GI bleed due to dual antiplatelet therapy. No reported episodes of rectal bleeding/melena. Pt will need outpt f/u with GI for EGD evaluation. Cardiology may need to evaluate/consider single antiplatelet treatment - Will obtain further workup with vitamin B12, folate and paraproteinemia workup -Continue to monitor CBC. Transfuse for hgb < 7 or if symptomatic - Clinic f/u scheduled in 2 weeks Doctor attests: I performed a history and physical examination of this patient, developed impression and plan of care. Discussed with dictator. I agree with dictators note, documented as a scribe.
[2025-04-13 20:16] LABS: Glucose,Whole Blood 170 mg/dL (70-110)
[2025-04-14 06:11] LABS: Glucose,Whole Blood 83 mg/dL (70-110)
[2025-04-14 11:08] LABS: Glucose,Whole Blood 301 mg/dL (70-110)
--- NOTE | 2025-04-14 11:33 | P.PN ---
Subjective Progress Note Date: 04/14/25 This is a 79-year-old female who is a patient of Dr. Arreguin has past medical history of CAD status post CABG with HUTR to LAD, SVG to left circumflex, SVG to RCA as well as PAD with prior stent angioplasty of bilateral iliac and bilateral SFA and right anterior tibial artery as well as hypertension, hyperlipidemia, carotid atherosclerosis, ischemic cardiomyopathy with reduced ejection fraction of 20-25%, valvular heart disease and CKD. Cardiology service has been consulted to evaluate for heart failure exacerbation. Patient was recently admitted to the hospital for acute on chronic exacerbation of heart failure. This time patient reports that she has been endorsing nausea, vomiting, diarrhea and fatigue since 4 days. Her symptoms started after she took [id number] stool softener for constipation. Patient reports that she is otherwise not endorsing any chest pain, shortness of breath or worsening leg edema and has been compliant with her cardiac medications. Patient denies abdominal pain, melena and hematochezia. She has recently follow-up with Dr. Arreguin in the office for a possible cardiac catheterization. However, patient has chronic anemia and was supposed to see toy painter Dr. Jewell for further workup/clearance before cardiac catheterization. Her appointment is in early April. Her most recent echocardiogram was January 2025 which revealed EF of 20 to 25% with mild to moderate aortic insufficiency and moderate MR. Her previous echocardiogram was in May 2024 with LVEF of 55%. Labs and data at this admission: WBC 7.2, hemoglobin 8.2, hematocrit 28.4, platelet count 343, sodium 138, potassium 4.2, BUN 59, creatinine 1.02, lactic acid 3.8 improved to 1.6, AST 236, ALT 120, NT proBNP 11967, troponin I negative, lipase 217. EKG EKG shows normal sinus rhythm with normal axis deviation with left bundle branch block noted. Nonspecific ST-T wave changes also noted. Chest x-ray c shows no acute cardiopulmonary disease process. 04/14/2025 Patient was seen and examined sitting up in bed. Currently receiving iron infusion which has been ordered by hematology. Underwent abdominal ultrasound yesterday that showed thickened gallbladder arvizu with bladder sludge correlate for signs and symptoms of cholecystitis, hepatic steatosis. She continues to feel tired and has dyspnea upon walking to the bathroom but feeling somewhat better. She has no lower extremity edema. She has no complaints of chest discomfort. Vital signs are stable. Labs are pending from this morning. Physical examination: Vital signs reviewed General: non toxic, no distress Head: atraumatic, normocephalic, symmetric Neck: No cervical lymphadenopathy, trachea midline, supple Cardiovascular: S1S2 reg, systolic murmur, positive dorsalis pedis pulse bilateral, 1+ bilateral lower extremity edema Lungs: Bibasilar crackles with no wheezing or rales. No use of accessory muscles Abdominal: soft, nontender to palpation, no guarding Neuro: Awake, alert, oriented x 4 Assessment: #Mild acute on chronic HFrEF with EF of 20 to 25% #Dilated ischemic cardiomyopathy #Transaminitis #History of COPD with prior CABG #History of PAD with prior stenting #Hypertension #Hyperlipidemia #Carotid atherosclerosis #Chronic kidney disease #Iron deficiency anemia Plan: From cardiology's perspective medications were reviewed we will continue the same. Patient underwent peripheral intervention in December and at this time patient would ideally continue dual antiplatelet therapy for 6 months. Continue to follow the hemoglobin closely. Appreciate input from hematology. Recheck BMP, NT proBNP, and CBC in am. We will continue to follow the patient and provide further recommendations accordingly. VASCULAR ULTRASOUND TECHNICIAN note has been reviewed, I agree with a documented findings and plan of care. Patient was seen and examined. Objective - Vital Signs Vital signs: Vital Signs Temp 97.7 F 04/14/25 07:25 Pulse 88 04/14/25 07:25 Resp 17 04/14/25 07:25 BP 112/68 04/14/25 07:25 Pulse Ox 97 04/14/25 07:25 FiO2 Intake & Output 04/13/25 04/14/25 04/14/25 18:59 06:59 18:59 Intake Total 460 250 Balance 460 250 Weight 61.1 kg Intake: Oral 460 250 Other: Voiding Method Toilet # Voids 1 2 1 # Bowel Movements 1 1 - Labs CBC & Chem 7: 04/12/25 16:26 04/12/25 16:26 Labs: Abnormal Lab Results - Last 24 Hours (Table) 04/13/25 04/13/25 04/13/25 Range/Units 11:28 16:43 20:15 POC Glucose (mg/dL) 299 H 221 H 170 H (70-110) mg/dL Microbiology - Last 24 Hours (Table) 04/12/25 17:18 Blood Culture - Preliminary Blood 04/12/25 16:37 Urine Culture - Preliminary Urine,Voided Gram Neg Bacilli Strep agalactiae - (group b)
[2025-04-14 12:51] LABS: HCT 26.9 % (37.2-46.3); HGB 7.5 g/dL (12.0-15.0); MCH 20.8 pg (27.0-32.0); MCHC 27.9 g/dL (32.0-37.0); MCV 74.7 fL (80.0-97.0); Platelet Count 285 10*3/uL (140-440); RBC 3.60 10*6/uL (4.10-5.20); RDW 22.1 % (11.5-14.5); WBC 7.41 10*3/uL (4.50-10.00)
[2025-04-14 13:04] LABS: Immunoglobulin G 1090.0 mg/dL (700.0-1600.0); Immunoglobulin M 141.0 mg/dL (40.0-280.0)
[2025-04-14 16:02] LABS: Glucose,Whole Blood 335 mg/dL (70-110)
--- NOTE | 2025-04-14 18:28 | P.PN ---
Progress Note - Text Progress Note Date: 04/14/25 Chief Complaint: Feeling weak Pleasant 79-year-old female follow-up with PCP Dr. Karley Winslow. Medical condition include CHF with diastolic dysfunction, essential hypertension, CAD with coronary bypass, secondary pulmonary hypertension inte rstitial lung disease, COPD, PAD with stents, diabetes, chronic kidney disease, hyperlipidemia hypothyroid essential hypertension. Patient for a week was very constipated. No bowel movement. At the baseline normally has 1 maybe 2 bowel movements a week. She was given a laxative by the visiting nurse. Had a large bowel movement very hard followed by some diarrhea. Subsequently patient became very weak. No vomited. Decreased appetite. No fever no chills. Denies abdominal pain. Patient has had a very dry mouth. April 14: Feels tired-this morning. Did not sleep too well. Breathing stable. Dry mouth. Was given gentle hydration overnight. Does not have too much of an appetite. Does not like much of the hospital food. Will have family bring in the food. Accu-Cheks fluctuating. Increase Prandin to 2 mg 3 times daily with meals Active Medications Acetaminophen (Acetaminophen Tab 325 Mg Tab) 650 mg PO Q6HR PRN PRN Reason: Mild Pain or Fever > 100.5 Alprazolam (Alprazolam 0.25 Mg Tab) 0.25 mg PO BID PRN PRN Reason: Anxiety Aspirin (Aspirin 81 Mg) 81 mg PO DAILY [facility] Last Admin: 04/14/25 10:03 Dose: 81 mg Atorvastatin Calcium (Atorvastatin 40 Mg Tab) 40 mg PO HS [facility] Last Admin: 04/13/25 20:44 Dose: 40 mg Clopidogrel Bisulfate (Clopidogrel 75 Mg Tab) 75 mg PO DAILY [facility] Last Admin: 04/14/25 10:03 Dose: 75 mg Cyanocobalamin (Cyanocobalamin 500 Mcg Tab) 1,000 mcg PO DAILY [facility] Last Admin: 04/14/25 10:03 Dose: 1,000 mcg Dapagliflozin (Dapagliflozin Propanediol 10 Mg Tablet) 10 mg PO DAILY [facility] Last Admin: 04/14/25 10:03 Dose: 10 mg Ezetimibe (Ezetimibe 10 Mg Tab) 10 mg PO DAILY [facility] Last Admin: 04/14/25 10:03 Dose: 10 mg Ergocalciferol (Ergocalciferol 1,250 Mcg (50,000 Iu) Capsule) 1,250 mcg PO Q15D [facility] Furosemide (Furosemide 20 Mg Tab) 20 mg PO DAILY@1400 [facility] Last Admin: 04/14/25 14:42 Dose: 20 mg Furosemide (Furosemide 40 Mg Tab) 40 mg PO DAILY [facility] Last Admin: 04/14/25 07:52 Dose: Not Given Ceftriaxone Sodium 1 gm/ (Sodium Chloride) 50 mls @ 100 mls/hr IVPB Q24HR [facility]; Protocol Last Admin: 04/14/25 10:44 Dose: 100 mls/hr Ferric Sodium Gluconate 125 mg (/ Sodium Chloride) 110 mls @ 100 mls/hr IVPB DAILY [facility] Stop: 04/16/25 10:05 Last Admin: 04/14/25 08:35 Dose: 100 mls/hr Insulin Human Lispro (Insulin Lispro (Humalog) 100 Unit/Ml 10 Ml Vl) 0 unit SQ ACHS [facility]; Protocol Last Admin: 04/14/25 17:00 Dose: 4 unit Levothyroxine Sodium (Levothyroxine 112 Mcg Tab) 112 mcg PO AC-BRKFST [facility] Last Admin: 04/14/25 06:47 Dose: 112 mcg Metformin HCl (Metformin 500 Mg Tab) 250 mg PO BID [facility] Last Admin: 04/14/25 10:03 Dose: 250 mg Metoprolol Succinate (Metoprolol Succinate (Er) 50 Mg Tab.Er.24h) 50 mg PO DAILY [facility] Last Admin: 04/14/25 10:03 Dose: 50 mg Naloxone HCl (Naloxone 0.4 Mg/Ml 1 Ml Vial) 0.2 mg IV Q2M PRN PRN Reason: Opioid Reversal Ondansetron HCl (Ondansetron 4 Mg/2 Ml Vial) 4 mg IVP Q8HR PRN PRN Reason: Nausea And Vomiting Pantoprazole Sodium (Pantoprazole 40 Mg Tablet) 40 mg PO AC-BRKFST [facility] Last Admin: 04/14/25 06:47 Dose: 40 mg Potassium Chloride (Potassium Chloride Er 10 Meq Tab.Er.Prt) 10 meq PO BID [facility] Last Admin: 04/14/25 10:03 Dose: Not Given Repaglinide (Repaglinide 1 Mg Tab) 1 mg PO AC-BID [facility] Last Admin: 04/14/25 16:57 Dose: Not Given Social history: Alcohol occasionally. Lives with her . Smoked for 40 years 2 packs a day stopped in 2003 Physical examination: VITAL SIGNS: 97.6, 80, 15, 104 x 64, 100% room air GENERAL: BMI 24.6, resting in bed EYES: Pupils equal. Conjunctiva normal. HEENT: External appearance of nose and ears normal, oral cavity grossly normal. Decreased hearing NECK: JVD raised; masses not palpable. HEART: First and second heart sounds are normal; no edema. LUNGS: Respiratory rate i normal, decreased l basal crackles ABDOMEN: Soft, nontender, liver spleen not palpable, no masses palpable. PSYCH: Alert and oriented x3; mood and affect tired MUSCULOSKELETAL:No Clubbing/cyanosis;muscles-grossly intact. OA Neurological: Cranial nerves grossly intact. Power sensation grossly intact INVESTIGATIONS, reviewed in the clinical context: April 14: White count 7.1 hemoglobin 7.5 platelets 285 Liver ultrasound: Thickened gallbladder arvizu with bladder sludge. Hepatic steatosis. April 12, 2025: White count 7.2 hemoglobin 8.2 platelets 343 sodium 138 potassium 4.2. 59 creatinine 1.02 Lactic acid 5.1 repeat 3.9 AST 236 ALT 120 troponin I 0.022 proBNP 99621 UA glucose 4+ negative for nitrite Serum acetone negative Chest x-ray film personally reviewed by id-[email or web address] CT abdomen pelvis: Circumferential wall thickening of the urinary bladder. Colonic diverticulosis. Severe atherosclerotic disease without evidence branches. Bilateral common iliac artery stents and right superficial femoral artery stent identified. Patent. Severe stenosis involving the origin of the proximal SFA secondary to calcified and noncalcified plaque. At least moderate stenosis of the aortic branches secondary to calcified plaque. Basilar pulmonary fibrotic changes. Previous investigations 2D echo [February 22, 2025] EF 20-25%. Aortic sclerosis with moderate aortic insufficiency. Moderate MR. Cardiac catheterization [May 30, 2024]: Occluded left main and subtotally occluded RCA. Patent HURT to LAD and patent SVG to left circumflex and patent SVG to RCA. Significant gradient across right iliac artery. Renal artery duplex: Heavily calcified atherosclerotic plaque especially mid and distal abdominal aorta Limited visualization of the left kidney. Velocities in the right kidney renal artery elevated but the ratio appears normal. Assessment and plan: - Acute medical asthenia following decreased appetite. Patient was constipated for 1 week. Followed by a combination for laxative. Had a massive bowel movement with very hard stool. Followed by diarrhea. Also probable element of cardiac cachexia Was given gentle hydration overnight. -Chronic congestive heart failure from ischemic systolic dysfunction EF 20-25%,: High resting BMP from severe systolic dysfunction. Not in any significant CHF on presentation. -Essential hypertension Toprol-XL 50 mg a day -CAD with a prior history of stent and bypass Aspirin. Plavix. Lipitor. Toprol-XL Cardiac catheterization on May 2024 did not show any stenosis. Patent stent and bypass. Nail Professional Dr. 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 -COPD in a previous smoker DuoNeb, as needed - Hepatic steatosis. - Hard of hearing - Colonic diverticulosis, asymptomatic - Lactic acidosis, type II from decreased oral intake clinical dehydration initially -PAD with stent to both the legs in December 2024, with Dr. Jeffries Aspirin, Plavix, Zetia - Transaminitis. Nonobstructive picture. Hepatic steatosis. Hold Lipitor for now. Patient has no right upper quadrant tenderness. - Questionable gallstones -Diabetes mellitus type 2, uncontrolled on oral hypoglycemic Jardiance,, metformin, Prandin increased to 2 mg, 3 times a day with meals Follow Accu-Cheks and sliding scale Change Ensure to Glucerna shake -Primary osteoarthritis Tylenol when necessary -Chronic kidney disease stage III likely nephrosclerosis and diabetic nephropathy Repeat renal function -Hyperlipidemia Lipitor, Zetia -Hypothyroid Synthroid 112 mcg a day -Essential hypertension Lopressor, -Full code Encourage with oral intake. Will order Glucerna. Patient counseled to encourage oral intake. Past Medical History Past Medical History: Coronary Artery Disease (CAD), Chest Pain / Angina, Heart Failure, Diabetes Mellitus, Eye Disorder, GERD/Reflux, Hearing Disorder / Deafness, Hyperlipidemia, Hypertension, Myocardial Infarction (NH), Myocardial Infarction (non Q-wave), Osteoarthritis (OA), Thyroid Disorder, Vascular Disorder Additional Past Medical History / Comment(s): Peripheral Arterial Disease. Glaucoma, has left eye stent. Bilateral hearing aids. slightly sob at times follows with pulminologist Last Myocardial Infarction Date:: 2001 History of Any Multi-Drug Resistant Organisms: None Reported Past Surgical History: Adenoidectomy, Coronary Bypass/CABG, Heart Catheterization, Heart Catheterization With Stent, Tonsillectomy, Tubal Ligation Additional Past Surgical History / Comment(s): Triple bypass in 2019 EXP. LAP 02/2012, STENT TO HEART X1, INFRA RENAL AORTIC STENT, STENTS TO BILATERAL LEGS, AORTOGRAM WITH RUNOFF, bilateral cataracts removed, stent to left eye. Past Anesthesia/Blood Transfusion Reactions: No Reported Reaction Additional Past Anesthesia/Blood Transfusion Reaction / Comment(s): Has never had a blood transfusion. Date of Last Stent Placement:: 2001 Past Psychological History: No Psychological Hx Reported Smoking Status: Former smoker Past Alcohol Use History: None Reported Past Drug Use History: None Reported
[2025-04-14 20:20] LABS: Glucose,Whole Blood 314 mg/dL (70-110)
[2025-04-14 21:41] LABS: ALT 216 U/L (8-44); AST 304 U/L (13-35); Albumin 3.1 g/dL (3.8-4.9); Albumin/Globulin Ratio 1.35 Ratio (1.60-3.17); Alkaline Phosphatase 90 U/L (41-126); Anion Gap 13.80 mmol/L (4.00-12.00); BUN/Creat Ratio 33.20 Ratio (12.00-20.00); Blood Urea Nitrogen 33.2 mg/dL (9.0-27.0); Calcium 8.5 mg/dL (8.7-10.3); Carbon Dioxide 24.2 mmol/L (21.6-31.8); Chloride 102 mmol/L (96-109); Globulin 2.3 g/dL (1.6-3.3); Glucose 71 mg/dL (70-110); Potassium 3.0 mmol/L (3.5-5.5); Sodium 140 mmol/L (135-145); Total Protein 5.4 g/dL (6.2-8.2)
[2025-04-14 22:09] LABS: Vitamin B12 >3600.0 pg/mL (200.0-944.0)
[2025-04-15 06:08] LABS: Glucose,Whole Blood 157 mg/dL (70-110)
[2025-04-15] MEDS: REPAGLINIDE 1 MG TAB PO SCH (06:31)
[2025-04-15 07:30] LABS: WBC 9.36 10*3/uL (4.50-10.00)
[2025-04-15 07:31] LABS: Basophils # (A) 0.08 10*3/uL (0.00-0.10); Basophils % (A) 0.9 %; Eosinophils # (A) 0.09 10*3/uL (0.04-0.35); Eosinophils % (A) 1.0 %; HCT 28.0 % (37.2-46.3); HGB 8.1 g/dL (12.0-15.0); Lymphocytes # (A) 1.11 10*3/uL (0.90-5.00); Lymphocytes % (A) 11.9 %; MCH 21.3 pg (27.0-32.0); MCHC 28.9 g/dL (32.0-37.0); Monocytes # (A) 0.76 10*3/uL (0.20-1.00); Monocytes % (A) 8.1 %; Neutrophils # (A) 7.22 10*3/uL (1.80-7.70); Neutrophils % (A) 77.0 %; Platelet Count 298 10*3/uL (140-440); RBC 3.81 10*6/uL (4.10-5.20); RDW 22.5 % (11.5-14.5)
[2025-04-15 07:43] LABS: ALT 278 U/L (4-34); AST 489 U/L (14-36); African American GFR (CKD) 71 (>60 ml/min/1.73 sqM); Albumin 3.1 g/dL (3.5-5.0); Albumin/Globulin Ratio 1.0; Alkaline Phosphatase 110 U/L (38-126); Anion Gap 15 mmol/L; Blood Urea Nitrogen 30 mg/dL (7-17); Calcium 8.7 mg/dL (8.4-10.2); Carbon Dioxide 22 mmol/L (22-30); Chloride 101 mmol/L (98-107); Globulin 3.1 g/dL; Glucose 128 mg/dL (74-99); Non-African American GFR(CKD) 61 (>60 ml/min/1.73 sqM); Potassium 3.4 mmol/L (3.5-5.1); Sodium 138 mmol/L (137-145); Total Protein 6.2 g/dL (6.3-8.2)
[2025-04-15 07:46] LABS: MCV 73.5 fL (80.0-97.0)
[2025-04-15 07:52] LABS: NT-Pro-B-Type Natriuretic Pept 9430 pg/mL
--- NOTE | 2025-04-15 10:25 | P.PN ---
Subjective Progress Note Date: 04/15/25 This is a 79-year-old female who is a patient of Dr. Arreguin has past medical history of CAD status post CABG with HURT to LAD, SVG to left circumflex, SVG to RCA as well as PAD with prior stent angioplasty of bilateral iliac and bilateral SFA and right anterior tibial artery as well as hypertension, hyperlipidemia, carotid atherosclerosis, ischemic cardiomyopathy with reduced ejection fraction of 20-25%, valvular heart disease and CKD. Cardiology service has been consulted to evaluate for heart failure exacerbation. Patient was recently admitted to the hospital for acute on chronic exacerbation of heart failure. This time patient reports that she has been endorsing nausea, vomiting, diarrhea and fatigue since 4 days. Her symptoms started after she took [id number] stool softener for constipation. Patient reports that she is otherwise not endorsing any chest pain, shortness of breath or worsening leg edema and has been compliant with her cardiac medications. Patient denies abdominal pain, melena and hematochezia. She has recently follow-up with Dr. Arreguin in the office for a possible cardiac catheterization. However, patient has chronic anemia and was supposed to see clinical assistant Dr. Jewell for further workup/clearance before cardiac catheterization. Her appointment is in early April. Her most recent echocardiogram was January 2025 which revealed EF of 20 to 25% with mild to moderate aortic insufficiency and moderate MR. Her previous echocardiogram was in May 2024 with LVEF of 55%. Labs and data at this admission: WBC 7.2, hemoglobin 8.2, hematocrit 28.4, platelet count 343, sodium 138, potassium 4.2, BUN 59, creatinine 1.02, lactic acid 3.8 improved to 1.6, AST 236, ALT 120, NT proBNP 23310, troponin I negative, lipase 217. EKG EKG shows normal sinus rhythm with normal axis deviation with left bundle branch block noted. Nonspecific ST-T wave changes also noted. Chest x-ray c shows no acute cardiopulmonary disease process. 04/14/2025 Patient was seen and examined sitting up in bed. Currently receiving iron infusion which has been ordered by hematology. Underwent abdominal ultrasound yesterday that showed thickened gallbladder arvizu with bladder sludge correlate for signs and symptoms of cholecystitis, hepatic steatosis. She continues to feel tired and has dyspnea upon walking to the bathroom but feeling somewhat better. She has no lower extremity edema. She has no complaints of chest discomfort. Vital signs are stable. Labs are pending from this morning. 04/15/2025 Patient was seen and examined resting comfortably in bed. She is feeling about the same as yesterday. Continues to feel tired. Continues to have mild dyspnea on exertion when walking to the bathroom. Hemoglobin this morning 8.1. Repeat BNP 9430. Bilirubin, AST and ALT are elevated. Physical examination: Vital signs reviewed General: non toxic, no distress Head: atraumatic, normocephalic, symmetric Neck: No cervical lymphadenopathy, trachea midline, supple Cardiovascular: S1S2 reg, systolic murmur, positive dorsalis pedis pulse bilateral, 1+ bilateral lower extremity edema Lungs: Bibasilar crackles with no wheezing or rales. No use of accessory muscles Abdominal: soft, nontender to palpation, no guarding Neuro: Awake, alert, oriented x 4 Assessment: #Mild acute on chronic HFrEF with EF of 20 to 25% #Dilated ischemic cardiomyopathy #Transaminitis #History of COPD with prior CABG #History of PAD with prior stenting #Hypertension #Hyperlipidemia #Carotid atherosclerosis #Chronic kidney disease #Iron deficiency anemia Plan: From cardiology's perspective we will discontinue Plavix, continue aspirin. Continue to monitor renal function, electrolytes and hemoglobin. Patient will require further evaluation of elevated bili, AST and ALT. Will defer to primary for this. We will continue to follow the patient and provide further recommendations accordingly. SECURITY ASSURANCE SPECIALIST note has been reviewed, I agree with a documented findings and plan of care. Patient was seen and examined. Objective - Vital Signs Vital signs: Vital Signs Temp 98.4 F 04/15/25 08:00 Pulse 92 04/15/25 08:43 Resp 16 04/15/25 08:43 BP 110/68 04/15/25 08:00 Pulse Ox 96 04/15/25 08:00 FiO2 Intake & Output 04/14/25 04/15/25 04/15/25 18:59 06:59 18:59 Intake Total 500 Balance 500 Intake: Oral 500 Other: Voiding Method Toilet Toilet Toilet # Voids 1 2 1 # Bowel Movements 1 - Labs CBC & Chem 7: 04/15/25 06:40 04/15/25 06:40 Labs: Abnormal Lab Results - Last 24 Hours (Table) 04/14/25 04/14/25 04/14/25 Range/Units 03:34 03:34 11:07 RBC (4.10-5.20) 10*6/uL Hgb (12.0-15.0) g/dL Hct (37.2-46.3) % MCV (80.0-97.0) fL MCH (27.0-32.0) pg MCHC (32.0-37.0) g/dL RDW (11.5-14.5) % Immature Gran # (0.00-0.04) 10*3/uL Potassium 3.0 L (3.5-5.5) mmol/L Anion Gap 13.80 H (4.00-12.00) mmol/L BUN 33.2 H (9.0-27.0) mg/dL Est GFR (CKD-EPI) 57 L (>=60) BUN/Creatinine Ratio 33.20 H (12.00-20.00) Ratio Glucose (74-99) mg/dL POC Glucose (mg/dL) 301 H (70-110) mg/dL Calcium 8.5 L (8.7-10.3) mg/dL Total Bilirubin (0.2-1.3) mg/dL AST 304 H (13-35) U/L ALT 216 H (8-44) U/L Total Protein 5.4 L (6.2-8.2) g/dL Total Protein (PEP) 5.9 L (6.2-8.2) g/dL Albumin 3.1 L (3.8-4.9) g/dL Albumin/Globulin Ratio 1.35 L (1.60-3.17) Ratio Vitamin B12 >3600.0 H (200.0-944.0) pg/mL IgA 520.0 H (60.0-350.0) mg/dL 04/14/25 04/14/25 04/14/25 Range/Units 12:22 16:01 20:19 RBC 3.60 L (4.10-5.20) 10*6/uL Hgb 7.5 L (12.0-15.0) g/dL Hct 26.9 L (37.2-46.3) % MCV 74.7 L (80.0-97.0) fL MCH 20.8 L (27.0-32.0) pg MCHC 27.9 L (32.0-37.0) g/dL RDW 22.1 H (11.5-14.5) % Immature Gran # (0.00-0.04) 10*3/uL Potassium (3.5-5.5) mmol/L Anion Gap (4.00-12.00) mmol/L BUN (9.0-27.0) mg/dL Est GFR (CKD-EPI) (>=60) BUN/Creatinine Ratio (12.00-20.00) Ratio Glucose (74-99) mg/dL POC Glucose (mg/dL) 335 H 314 H (70-110) mg/dL Calcium (8.7-10.3) mg/dL Total Bilirubin (0.2-1.3) mg/dL AST (13-35) U/L ALT (8-44) U/L Total Protein (6.2-8.2) g/dL Total Protein (PEP) (6.2-8.2) g/dL Albumin (3.8-4.9) g/dL Albumin/Globulin Ratio (1.60-3.17) Ratio Vitamin B12 (200.0-944.0) pg/mL IgA (60.0-350.0) mg/dL 04/15/25 04/15/25 04/15/25 Range/Units 06:07 06:40 06:40 RBC 3.81 L (4.10-5.20) 10*6/uL Hgb 8.1 L (12.0-15.0) g/dL Hct 28.0 L (37.2-46.3) % MCV 73.5 L (80.0-97.0) fL MCH 21.3 L (27.0-32.0) pg MCHC 28.9 L (32.0-37.0) g/dL RDW 22.5 H (11.5-14.5) % Immature Gran # 0.10 H (0.00-0.04) 10*3/uL Potassium 3.4 L (3.5-5.5) mmol/L Anion Gap (4.00-12.00) mmol/L BUN 30 H (9.0-27.0) mg/dL Est GFR (CKD-EPI) (>=60) BUN/Creatinine Ratio (12.00-20.00) Ratio Glucose 128 H (74-99) mg/dL POC Glucose (mg/dL) 157 H (70-110) mg/dL Calcium (8.7-10.3) mg/dL Total Bilirubin 1.5 H (0.2-1.3) mg/dL AST 489 H (13-35) U/L ALT 278 H (8-44) U/L Total Protein 6.2 L (6.2-8.2) g/dL Total Protein (PEP) (6.2-8.2) g/dL Albumin 3.1 L (3.8-4.9) g/dL Albumin/Globulin Ratio (1.60-3.17) Ratio Vitamin B12 (200.0-944.0) pg/mL IgA (60.0-350.0) mg/dL Microbiology - Last 24 Hours (Table) 04/12/25 17:18 Blood Culture - Preliminary Blood 04/12/25 16:37 Urine Culture - Final Urine,Voided Citrobacter braakii Strep agalactiae - (group b)
[2025-04-15 11:16] LABS: Glucose,Whole Blood 251 mg/dL (70-110)
[2025-04-15 16:26] LABS: Glucose,Whole Blood 233 mg/dL (70-110)
--- NOTE | 2025-04-15 19:55 | P.PN ---
Progress Note - Text Progress Note Date: 04/15/25 Chief Complaint: Feeling weak Pleasant 79-year-old female follow-up with PCP Dr. Karley Winslow. Medical condition include CHF with diastolic dysfunction, essential hypertension, CAD with coronary bypass, secondary pulmonary hypertension inte rstitial lung disease, COPD, PAD with stents, diabetes, chronic kidney disease, hyperlipidemia hypothyroid essential hypertension. Patient for a week was very constipated. No bowel movement. At the baseline normally has 1 maybe 2 bowel movements a week. She was given a laxative by the visiting nurse. Had a large bowel movement very hard followed by some diarrhea. Subsequently patient became very weak. No vomited. Decreased appetite. No fever no chills. Denies abdominal pain. Patient has had a very dry mouth. April 14: Feels tired-this morning. Did not sleep too well. Breathing stable. Dry mouth. Was given gentle hydration overnight. Does not have too much of an appetite. Does not like much of the hospital food. Will have family bring in the food. Accu-Cheks fluctuating. Increase Prandin to 2 mg 3 times daily with meals April 15: Did go to the bathroom. Feeling tired. Discussed at length about increasing activity. Breathing stable. at the bedside. Accu-Cheks are better after adding Prandin. Noticed increase in LFTs. Order acute hepatitis profile. DC Tylenol Up in chair. Activity as tolerated. Active Medications Alprazolam (Alprazolam 0.25 Mg Tab) 0.25 mg PO BID PRN PRN Reason: Anxiety Aspirin (Aspirin 81 Mg) 81 mg PO DAILY [facility] Last Admin: 04/15/25 08:26 Dose: 81 mg Cyanocobalamin (Cyanocobalamin 500 Mcg Tab) 1,000 mcg PO DAILY [facility] Last Admin: 04/15/25 08:25 Dose: 1,000 mcg Dapagliflozin (Dapagliflozin Propanediol 10 Mg Tablet) 10 mg PO DAILY [facility] Last Admin: 04/15/25 08:25 Dose: 10 mg Ezetimibe (Ezetimibe 10 Mg Tab) 10 mg PO DAILY [facility] Last Admin: 04/15/25 08:25 Dose: 10 mg Ergocalciferol (Ergocalciferol 1,250 Mcg (50,000 Iu) Capsule) 1,250 mcg PO Q15D [facility] Furosemide (Furosemide 20 Mg Tab) 20 mg PO DAILY@1400 [facility] Last Admin: 04/15/25 14:44 Dose: 20 mg Furosemide (Furosemide 40 Mg Tab) 40 mg PO DAILY [facility] Last Admin: 04/15/25 08:24 Dose: Not Given Ceftriaxone Sodium 1 gm/ (Sodium Chloride) 50 mls @ 100 mls/hr IVPB Q24HR [facility]; Protocol Last Admin: 04/15/25 08:26 Dose: 100 mls/hr Ferric Sodium Gluconate 125 mg (/ Sodium Chloride) 110 mls @ 100 mls/hr IVPB DAILY [facility] Stop: 04/16/25 10:05 Last Admin: 04/15/25 11:32 Dose: 100 mls/hr Insulin Human Lispro (Insulin Lispro (Humalog) 100 Unit/Ml 10 Ml Vl) 0 unit SQ [facility]; Protocol Last Admin: 04/15/25 17:14 Dose: 2 unit Levothyroxine Sodium (Levothyroxine 112 Mcg Tab) 112 mcg PO AC-BRKFST [facility] Last Admin: 04/15/25 06:31 Dose: 112 mcg Metformin HCl (Metformin 500 Mg Tab) 250 mg PO BID [facility] Last Admin: 04/15/25 08:25 Dose: 250 mg Metoprolol Succinate (Metoprolol Succinate (Er) 50 Mg Tab.Er.24h) 50 mg PO DAILY [facility] Last Admin: 04/15/25 08:25 Dose: 50 mg Naloxone HCl (Naloxone 0.4 Mg/Ml 1 Ml Vial) 0.2 mg IV Q2M PRN PRN Reason: Opioid Reversal Ondansetron HCl (Ondansetron 4 Mg/2 Ml Vial) 4 mg IVP Q8HR PRN PRN Reason: Nausea And Vomiting Pantoprazole Sodium (Pantoprazole 40 Mg Tablet) 40 mg PO AC-BRKFST [facility] Last Admin: 04/15/25 06:31 Dose: 40 mg Potassium Chloride (Potassium Chloride Er 10 Meq Tab.Er.Prt) 10 meq PO BID [facility] Last Admin: 04/15/25 08:26 Dose: 10 meq Repaglinide (Repaglinide 1 Mg Tab) 2 mg PO AC-TID [facility] Last Admin: 04/15/25 17:39 Dose: 2 mg Social history: Alcohol occasionally. Lives with her . Smoked for 40 years 2 packs a day stopped in 2003 Physical examination: VITAL SIGNS: 97.9, 86, 14, 107 x 63, 97% room air GENERAL: BMI 24.6, resting in bed EYES: Pupils equal. Conjunctiva normal. HEENT: External appearance of nose and ears normal, oral cavity grossly normal. Decreased hearing NECK: JVD raised; masses not palpable. HEART: First and second heart sounds are normal; no edema. LUNGS: Respiratory rate i normal, decreased l basal crackles ABDOMEN: Soft, nontender, liver spleen not palpable, no masses palpable. PSYCH: Alert and oriented x3; mood and affect tired MUSCULOSKELETAL:No Clubbing/cyanosis;muscles-grossly intact. OA Neurological: Cranial nerves grossly intact. Power sensation grossly intact INVESTIGATIONS, reviewed in the clinical context: April 15: White count 9.3 hemoglobin 8.1 platelets 298 potassium 3.4 total bilirubin 1.5 AST 49 ALT 278 April 14: White count 7.1 hemoglobin 7.5 platelets 285 Liver ultrasound: Thickened gallbladder arvizu with bladder sludge. Hepatic steatosis. April 12, 2025: White count 7.2 hemoglobin 8.2 platelets 343 sodium 138 potassium 4.2. 59 creatinine 1.02 Lactic acid 5.1 repeat 3.9 AST 236 ALT 120 troponin I 0.022 proBNP 82029 UA glucose 4+ negative for nitrite Serum acetone negative Chest x-ray film personally reviewed by [id number] CT abdomen pelvis: Circumferential wall thickening of the urinary bladder. Colonic diverticulosis. Severe atherosclerotic disease without evidence branches. Bilateral common iliac artery stents and right superficial femoral artery stent identified. Patent. Severe stenosis involving the origin of the proximal SFA secondary to calcified and noncalcified plaque. At least moderate stenosis of the aortic branches secondary to calcified plaque. Basilar pulmonary fibrotic changes. Previous investigations 2D echo [February 22, 2025] EF 20-25%. Aortic sclerosis with moderate aortic insufficiency. Moderate MR. Cardiac catheterization [May 30, 2024]: Occluded left main and subtotally occluded RCA. Patent HURT to LAD and patent SVG to left circumflex and patent SVG to RCA. Significant gradient across right iliac artery. Renal artery duplex: Heavily calcified atherosclerotic plaque especially mid and distal abdominal aorta Limited visualization of the left kidney. Velocities in the right kidney renal artery elevated but the ratio appears normal. Assessment and plan: - Acute medical asthenia following decreased appetite. Patient was constipated for 1 week. Followed by a combination for laxative. Had a massive bowel movement with very hard stool. Followed by diarrhea. Also probable element of cardiac cachexia Was given gentle hydration overnight initially. -Chronic congestive heart failure from ischemic systolic dysfunction EF 20-25%,: High resting BMP from severe systolic dysfunction. Not in any significant CHF on presentation. Paige. Lasix. Toprol-XL. -Essential hypertension Toprol-XL 50 mg a day -CAD with a prior history of stent and bypass Aspirin. Plavix. Lipitor. Toprol-XL Cardiac catheterization on May 2024 did not show any stenosis. Patent stent and bypass. Roster Clerk Dr. 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 -COPD in a previous smoker DuoNeb, as needed - Hepatic steatosis. - Hard of hearing - Colonic diverticulosis, asymptomatic - Lactic acidosis, type II from decreased oral intake clinical dehydration initially -PAD with stent to both the legs in December 2024, with Dr. Jeffries Aspirin, Plavix, Zetia - Transaminitis. Nonobstructive picture. Hepatic steatosis.: Some worsening Hold Lipitor for now. Patient has no right upper quadrant tenderness. Check acute hepatitis panel - Questionable gallstones -Diabetes mellitus type 2, uncontrolled on oral hypoglycemic Jardiance,, metformin, Prandin increased to 2 mg, 3 times a day with meals Follow Accu-Cheks and sliding scale Glucerna shake -Primary osteoarthritis Tylenol when necessary -Chronic kidney disease stage III likely nephrosclerosis and diabetic nephropathy Repeat renal function -Hyperlipidemia Lipitor, Zetia -Hypothyroid Synthroid 112 mcg a day -Essential hypertension Lopressor, -Full code Lengthy talk with the patient . Some worsening in LFTs. No obvious offending medications. Stop Tylenol. Lipitor was discontinued yesterday. Expect LFTs to improve by tomorrow. Increase activity. Past Medical History Past Medical History: Coronary Artery Disease (CAD), Chest Pain / Angina, Heart Failure, Diabetes Mellitus, Eye Disorder, GERD/Reflux, Hearing Disorder / Deafness, Hyperlipidemia, Hypertension, Myocardial Infarction (CT), Myocardial Infarction (non Q-wave), Osteoarthritis (OA), Thyroid Disorder, Vascular Disorder Additional Past Medical History / Comment(s): Peripheral Arterial Disease. Glaucoma, has left eye stent. Bilateral hearing aids. slightly sob at times follows with pulminologist Last Myocardial Infarction Date:: 2001 History of Any Multi-Drug Resistant Organisms: None Reported Past Surgical History: Adenoidectomy, Coronary Bypass/CABG, Heart Catheterization, Heart Catheterization With Stent, Tonsillectomy, Tubal Ligation Additional Past Surgical History / Comment(s): Triple bypass in 2019 EXP. LAP 02/2012, STENT TO HEART X1, INFRA RENAL AORTIC STENT, STENTS TO BILATERAL LEGS, AORTOGRAM WITH RUNOFF, bilateral cataracts removed, stent to left eye. Past Anesthesia/Blood Transfusion Reactions: No Reported Reaction Additional Past Anesthesia/Blood Transfusion Reaction / Comment(s): Has never had a blood transfusion. Date of Last Stent Placement:: 2001 Past Psychological History: No Psychological Hx Reported Smoking Status: Former smoker Past Alcohol Use History: None Reported Past Drug Use History: None Reported
[2025-04-15 20:09] LABS: Glucose,Whole Blood 279 mg/dL (70-110)
[2025-04-16 05:02] LABS: ALT 317 U/L (4-34); AST 502 U/L (14-36); African American GFR (CKD) 68 (>60 ml/min/1.73 sqM); Albumin 2.9 g/dL (3.5-5.0); Albumin/Globulin Ratio 0.9; Alkaline Phosphatase 142 U/L (38-126); Anion Gap 14 mmol/L; Blood Urea Nitrogen 31 mg/dL (7-17); Calcium 9.1 mg/dL (8.4-10.2); Carbon Dioxide 22 mmol/L (22-30); Chloride 98 mmol/L (98-107); Globulin 3.1 g/dL; Glucose 114 mg/dL (74-99); Non-African American GFR(CKD) 59 (>60 ml/min/1.73 sqM); Potassium 4.1 mmol/L (3.5-5.1); Sodium 134 mmol/L (137-145); Total Protein 6.0 g/dL (6.3-8.2)
[2025-04-16 06:25] LABS: Glucose,Whole Blood 123 mg/dL (70-110)
[2025-04-16 07:48] LABS: HCT 29.0 % (37.2-46.3); HGB 7.9 g/dL (12.0-15.0); MCH 20.7 pg (27.0-32.0); MCHC 27.2 g/dL (32.0-37.0); MCV 75.9 FL (80.0-97.0); NRBC Per 100 WBC 0.56 X 10*3/uL (0.00-0.01); Platelet Count 288 X 10*3/uL (140-440); RBC 3.82 X 10*6/uL (4.10-5.20); RDW 23.2 % (11.5-14.5); WBC 11.43 X 10*3/uL (4.50-10.00)
[2025-04-16 08:16] LABS: Hepatitis A Antibody IgM Nonreactive (Nonreactive); Hepatitis B Surface Antigen Nonreactive (Nonreactive); Hepatitis C IgG Antibody Nonreactive (Nonreactive)
[2025-04-16 10:30] LABS: Anisocytosis (M) 3+ (None Seen); Crenated RBC 2+ (None Seen); Hypochromasia (M) 2+ (None Seen); Microcytosis (M) 2+ (None Seen); Schistocytes 2+ (None Seen)
[2025-04-16 11:04] LABS: Glucose,Whole Blood 188 mg/dL (70-110)
--- NOTE | 2025-04-16 12:21 | CA ---
Transthoracic Echo Report Name: Sangeeta Vinson Age: 79 Gender: F : 1945 Exam Date: 04/16/2025 09:07 Exam Location: [place] [facility] Ht (in): 62 Wt (lb): 134 Ordering Physician: Daryl Briceno MD Attending/Referring Phys: Flying [employer] Instructor Catarina Nunez RDCS Procedure CPT: Indications: chf Cardiac Hx: Limited for LVF Technical Quality: Good Contrast 1: Definity Total Dose (mL): 2 Contrast 2: Total Dose (mL): MEASUREMENTS (Male / Female) Normal Values 2D ECHO LV Diastolic Diameter PLAX 4.6 cm 4.2 - 5.9 / 3.9 - 5.3 cm LV Systolic Diameter PLAX 4.2 cm IVS Diastolic Thickness 0.8 cm 0.6 - 1.0 / 0.6 - 0.9 cm LVPW Diastolic Thickness 1.0 cm 0.6 - 1.0 / 0.6 - 0.9 cm LV Relative Wall Thickness 0.4 RV Internal Dim ED PLAX 3.3 cm LA Systolic Diameter LX 4.0 cm 3.0 - 4.0 / 2.7 - 3.8 cm LV Diastolic Volume MOD BP 155.0 cm??? 67 - 155 / 56 - 104 cm??? LV Systolic Volume MOD BP 124.1 cm??? 22 - 58 / 19 - 49 cm??? LV Ejection Fraction MOD BP 20.0 % >= 55 % LV Diastolic Volume MOD 4C 130.8 cm??? LV Systolic Volume MOD 4C 108.3 cm??? LV Ejection Fraction MOD 4C 17.2 % LV Diastolic Length 4C 7.4 cm LV Systolic Length 4C 6.8 cm LV Diastolic Volume MOD 2C 177.4 cm??? LV Systolic Volume MOD 2C 137.1 cm??? LV Ejection Fraction MOD 2C 22.7 % LV Diastolic Length 2C 7.7 cm LV Systolic Length 2C 7.1 cm DOPPLER AI Peak Velocity 289.7 cm/s AI Peak Gradient 33.6 mmHg AI Pressure Half Time 243.4 ms MV Peak Velocity 123.7 cm/s MV Peak Gradient 6.1 mmHg MV Mean Velocity 89.0 cm/s MV Mean Gradient 3.4 mmHg MV Velocity Time Integral 23.0 cm TR Peak Velocity 350.0 cm/s TR Peak Gradient 49.0 mmHg Right Atrial Pressure 20.0 mmHg Pulmonary Artery Systolic Pressu 69.0 mmHg Right Ventricular Systolic Press 69.0 mmHg FINDINGS Left Ventricle Left ventricular ejection fraction is estimated at 15-20%. Severely increased left ventricular diastolic volume. Severely increased left ventricular systolic volume. Severely decreased left ventricular ejection fraction. Right Ventricle Right ventricular dilatation. Reduced right ventricular global systolic function. Severe pulmonary hypertension. Right ventricular systolic pressure estimated at 69 mm hg. Right Atrium Left Atrium Mildly increased left atrial diameter. Mitral Valve Mitral valve thickened. Mitral annular calcification. Mild mitral stenosis. Moderate mitral regurgitation. Aortic Valve Trileaflet aortic valve. Thickened aortic valve without stenosis. Moderate aortic regurgitation. Tricuspid Valve Structurally normal tricuspid valve. No tricuspid stenosis. [id number] tricuspid regurgitation. Pulmonic Valve Pericardium Minimal pericardial effusion (normal variant). Aorta Aortic annulus normal. CONCLUSIONS LVEF 15 to 20%. Dilated LV with globally reduced systolic function. No evidence LV thrombus Paradoxical septal motion. Dilated RV with evidence of severe pulmonary hypertension with RVSP of 39 mmHg Moderate mitral regurgitation, moderate aortic regurgitation Moderate to severe tricuspid regurg Trace pericardial effusion Previewed by: Dr Jeremiah Espinosa (Electronically Signed) Final Date: 16 April 2025 12:20
[2025-04-16 13:40] LABS: Free Kappa Lt Chain Qnt, Serum 4.72 mg/dL (0.33-1.94); Free Lambda Lt Chain Qnt, Seru 5.38 mg/dL (0.57-2.63)
[2025-04-16 16:33] LABS: Glucose,Whole Blood 222 mg/dL (70-110)
[2025-04-16 20:41] LABS: Glucose,Whole Blood 180 mg/dL (70-110)
--- NOTE | 2025-04-16 20:42 | P.PN ---
Subjective Progress Note Date: 04/16/25 Pleasant 79-year-old female follow-up with PCP Dr. Karley Winslow. Medical condition include CHF with diastolic dysfunction, essential hypertension, CAD with coronary bypass, secondary pulmonary hypertension interstitial lung disease, COPD, PAD with stents, diabetes, chronic kidney disease, hyperlipidemia hypothyroid essential hypertension. Patient for a week was very constipated. No bowel movement. At the baseline normally has 1 maybe 2 bowel movements a week. She was given a laxative by the visiting nurse. Had a large bowel movement very hard followed by some diarrhea. Subsequently patient became very weak. No vomited. Decreased appetite. No fever no chills. Denies abdominal pain. Patient has had a very dry mouth. April 14: Feels tired-this morning. Did not sleep too well. Breathing stable. Dry mouth. Was given gentle hydration overnight. Does not have too much of an appetite. Does not like much of the hospital food. Will have family bring in t he food. Accu-Cheks fluctuating. Increase Prandin to 2 mg 3 times daily with meals April 15: Did go to the bathroom. Feeling tired. Discussed at length about increasing activity. Breathing stable. at the bedside. Accu-Cheks are better after adding Prandin. Noticed increase in LFTs. Order acute hepatitis profile. DC Tylenol Up in chair. Activity as tolerated. 04/16/2025 Patient states that she is feeling tired. Also having exertional dyspnea when ambulating to the bathroom. No complaints of chest pain. No leg pain. Pulse ox 98% on room air. Afebrile. No cough or sputum production. Laboratory showed WBC 11.4 hemoglobin 7.9 and MCV 75.9 and platelets 288. Patient received IV iron today. Sodium 134 potassium 4.1 chloride 98 bicarb is 22 BUN 31 and creatinine 0.91 blood sugar 114 Liver enzymes are still elevated. AST 502 ALT 317 and alk phos 142 and albumin 2.9. Patient is on IV ceftriaxone for possible urinary tract infection. Also on Lasix p.o. 2D echocardiogram showed LVEF 15 to 20%. Dilated LV with globally reduced systolic function. No evidence of LV thrombus. Paradoxical septal motion. Dilated RV with evidence of severe pulmonary hypertension with RVSP 39 mmHg. Moderate MR, moderate AR and moderate to severe TR. Trace pericardial effusion Active Medications Alprazolam (Alprazolam 0.25 Mg Tab) 0.25 mg PO BID PRN PRN Reason: Anxiety Aspirin (Aspirin 81 Mg) 81 mg PO DAILY [facility] Last Admin: 04/16/25 08:34 Dose: 81 mg Cyanocobalamin (Cyanocobalamin 500 Mcg Tab) 1,000 mcg PO DAILY [facility] Last Admin: 04/16/25 08:34 Dose: 1,000 mcg Dapagliflozin (Dapagliflozin Propanediol 10 Mg Tablet) 10 mg PO DAILY [facility] Last Admin: 04/16/25 08:34 Dose: 10 mg Ezetimibe (Ezetimibe 10 Mg Tab) 10 mg PO DAILY [facility] Last Admin: 04/16/25 08:34 Dose: 10 mg Ergocalciferol (Ergocalciferol 1,250 Mcg (50,000 Iu) Capsule) 1,250 mcg PO Q15D [facility] Furosemide (Furosemide 20 Mg Tab) 20 mg PO DAILY@1400 [facility] Last Admin: 04/16/25 17:22 Dose: 20 mg Furosemide (Furosemide 40 Mg Tab) 40 mg PO DAILY [facility] Last Admin: 04/16/25 08:34 Dose: 40 mg Ceftriaxone Sodium 1 gm/ (Sodium Chloride) 50 mls @ 100 mls/hr IVPB Q24HR [facility]; Protocol Last Admin: 04/16/25 08:35 Dose: 100 mls/hr Insulin Human Lispro (Insulin Lispro (Humalog) 100 Unit/Ml 10 Ml Vl) 0 unit SQ ACHS [facility]; Protocol Last Admin: 04/16/25 17:22 Dose: 2 unit Levothyroxine Sodium (Levothyroxine 112 Mcg Tab) 112 mcg PO AC-BRKFST [facility] Last Admin: 04/16/25 06:44 Dose: 112 mcg Metformin HCl (Metformin 500 Mg Tab) 250 mg PO BID [facility] Last Admin: 04/16/25 08:34 Dose: 250 mg Metoprolol Succinate (Metoprolol Succinate (Er) 50 Mg Tab.Er.24h) 50 mg PO DAILY [facility] Last Admin: 04/16/25 08:34 Dose: 50 mg Naloxone HCl (Naloxone 0.4 Mg/Ml 1 Ml Vial) 0.2 mg IV Q2M PRN PRN Reason: Opioid Reversal Ondansetron HCl (Ondansetron 4 Mg/2 Ml Vial) 4 mg IVP Q8HR PRN PRN Reason: Nausea And Vomiting Pantoprazole Sodium (Pantoprazole 40 Mg Tablet) 40 mg PO AC-BRKFST [facility] Last Admin: 04/16/25 06:44 Dose: 40 mg Potassium Chloride (Potassium Chloride Er 10 Meq Tab.Er.Prt) 10 meq PO BID [facility] Last Admin: 04/16/25 08:34 Dose: 10 meq Repaglinide (Repaglinide 1 Mg Tab) 2 mg PO AC-TID [facility] Last Admin: 04/16/25 17:22 Dose: 2 mg Social history: Alcohol occasionally. Lives with her . Smoked for 40 years 2 packs a day stopped in 2003 Physical examination: VITAL SIGNS: 97.9, 86, 14, 107 x 63, 97% room air GENERAL: BMI 24.6, resting in bed EYES: Pupils equal. Conjunctiva normal. HEENT: External appearance of nose and ears normal, oral cavity grossly normal. Decreased hearing NECK: JVD raised; masses not palpable. HEART: First and second heart sounds are normal; no edema. LUNGS: Respiratory rate i normal, decreased l basal crackles ABDOMEN: Soft, nontender, liver spleen not palpable, no masses palpable. PSYCH: Alert and oriented x3; mood and affect tired MUSCULOSKELETAL:No Clubbing/cyanosis;muscles-grossly intact. OA Neurological: Cranial nerves grossly intact. Power sensation grossly intact INVESTIGATIONS, reviewed in the clinical context: April 15: White count 9.3 hemoglobin 8.1 platelets 298 potassium 3.4 total bilirubin 1.5 AST 49 ALT 278 April 14: White count 7.1 hemoglobin 7.5 platelets 285 Liver ultrasound: Thickened gallbladder arvizu with bladder sludge. Hepatic steatosis. April 12, 2025: White count 7.2 hemoglobin 8.2 platelets 343 sodium 138 potassium 4.2. 59 creatinine 1.02 Lactic acid 5.1 repeat 3.9 AST 236 ALT 120 troponin I 0.022 proBNP 70485 UA glucose 4+ negative for nitrite Serum acetone negative Chest x-ray film personally reviewed by ms-cardiomegaly CT abdomen pelvis: Circumferential wall thickening of the urinary bladder. Colonic diverticulosis. Severe atherosclerotic disease without evidence branches. Bilateral common iliac artery stents and right superficial femoral artery stent identified. Patent. Severe stenosis involving the origin of the proximal SFA secondary to calcified and noncalcified plaque. At least moderate stenosis of the aortic branches secondary to calcified plaque. Basilar pulmonary fibrotic changes. Previous investigations 2D echo [February 22, 2025] EF 20-25%. Aortic sclerosis with moderate aortic insufficiency. Moderate MR. Cardiac catheterization [May 30, 2024]: Occluded left main and subtotally occluded RCA. Patent HURT to LAD and patent SVG to left circumflex and patent SVG to RCA. Significant gradient across right iliac artery. Renal artery duplex: Heavily calcified atherosclerotic plaque especially mid and distal abdominal aorta Limited visualization of the left kidney. Velocities in the right kidney renal artery elevated but the ratio appears normal. Assessment and plan: - Acute medical asthenia following decreased appetite. Patient was constipated for 1 week. Followed by a combination for laxative. Had a massive bowel mov ement with very hard stool. Followed by diarrhea. Also probable element of cardiac cachexia Was given gentle hydration overnight initially. - Acute on chronic congestive heart failure from ischemic systolic dysfunction EF 15 to 20%. Dilated ischemic cardiomyopathy High resting BMP from severe systolic dysfunction. Farxiga. Lasix. Toprol-XL. Repeat 2D echo: Report as above. -Essential hypertension Toprol-XL 50 mg a day -CAD with a prior history of stent and bypass Aspirin. DC Plavix. Lipitor. Toprol-XL Cardiac catheterization on May 2024 did not show any stenosis. Patent st ent and bypass. Lead Operator Dr. 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 -COPD in a previous smoker DuoNeb, as needed - Transaminitis. Patient has elevated AST ALT and alk phos. Bilirubin within normal limits. Ultrasound abdominal showed hepatic steatosis. No evidence of obstruction. Acute hepatitis panel negative. Continue to monitor LFTs. Lipitor is on hold. - Hard of hearing - Colonic diverticulosis, asymptomatic - Lactic acidosis, type II from decreased oral intake clinical dehydration initially -PAD with stent to both the legs in December 2024, with Dr. Jeffries Aspirin, and Zetia. DC Plavix. - Questionable gallstones -Diabetes mellitus type 2, uncontrolled on oral hypoglycemic Jardiance,, metformin, Prandin increased to 2 mg, 3 times a day with meals Follow Accu-Cheks and sliding scale Glucerna shake -Primary osteoarthritis Tylenol is on hold due to elevated liver enzymes. -Chronic kidney disease stage III likely nephrosclerosis and diabetic nephropathy Continue to monitor renal function -Hyperlipidemia Lipitor, Zetia -Hypothyroid Synthroid 112 mcg a day -Essential hypertension Lopressor, -Full code Lengthy talk with the patient and her at bedside. Patient has worsening in LFTs. No obvious offending medications. Stop Tylenol. Lipitor was discontinued continue to monitor LFTs.. Increase activity. Objective - Vital Signs Vital signs: Vital Signs Temp 98.1 F 04/16/25 14:00 Pulse 79 04/16/25 14:00 Resp 16 04/16/25 14:00 BP 106/68 04/16/25 14:00 Pulse Ox 98 04/16/25 14:00 FiO2 Intake & Output 04/15/25 04/16/25 04/16/25 18:59 06:59 18:59 Other: Voiding Method Toilet Toilet # Voids 1 3 1 - Labs CBC & Chem 7: 04/16/25 03:26 04/16/25 03:26 Labs: Abnormal Lab Results - Last 24 Hours (Table) 04/14/25 04/15/25 04/15/25 Range/Units 03:34 16:24 20:03 WBC (4.50-10.00) X 10*3/uL RBC (4.10-5.20) X 10*6/uL Hgb (12.0-15.0) g/dL Hct (37.2-46.3) % MCV (80.0-97.0) FL MCH (27.0-32.0) pg MCHC (32.0-37.0) g/dL RDW (11.5-14.5) % NRBC/100 WBC Diff (0.00-0.01) X 10*3/uL Hypochromasia (manual) (None Seen) Anisocytosis (manual) (None Seen) Microcytosis (manual) (None Seen) Crenated Cell (None Seen) Elliptocytes (None Seen) Schistocytes (None Seen) Sodium (137-145) mmol/L BUN (7-17) mg/dL Glucose (74-99) mg/dL POC Glucose (mg/dL) 233 H 279 H (70-110) mg/dL AST (14-36) U/L ALT (4-34) U/L Alkaline Phosphatase (38-126) U/L Total Protein (6.3-8.2) g/dL Albumin (3.5-5.0) g/dL Free [place] LC, Quant 4.72 H (0.33-1.94) mg/dL Free Lambda LC, Quant 5.38 H (0.57-2.63) mg/dL 04/16/25 04/16/25 04/16/25 Range/Units 03:26 03:26 06:23 WBC 11.43 H (4.50-10.00) X 10*3/uL RBC 3.82 L (4.10-5.20) X 10*6/uL Hgb 7.9 L (12.0-15.0) g/dL Hct 29.0 L (37.2-46.3) % MCV 75.9 L (80.0-97.0) FL MCH 20.7 L (27.0-32.0) pg MCHC 27.2 L (32.0-37.0) g/dL RDW 23.2 H (11.5-14.5) % NRBC/100 WBC Diff 0.56 H (0.00-0.01) X 10*3/uL Hypochromasia (manual) 2+ A (None Seen) Anisocytosis (manual) 3+ A (None Seen) Microcytosis (manual) 2+ A (None Seen) Crenated Cell 2+ A (None Seen) Elliptocytes 2+ A (None Seen) Schistocytes 2+ A (None Seen) Sodium 134 L (137-145) mmol/L BUN 31 H (7-17) mg/dL Glucose 114 H (74-99) mg/dL POC Glucose (mg/dL) 123 H (70-110) mg/dL AST 502 H (14-36) U/L ALT 317 H (4-34) U/L Alkaline Phosphatase 142 H (38-126) U/L Total Protein 6.0 L (6.3-8.2) g/dL Albumin 2.9 L (3.5-5.0) g/dL Free Cool LC, Quant (0.33-1.94) mg/dL Free Lambda LC, Quant (0.57-2.63) mg/dL 04/16/25 Range/Units 11:02 WBC (4.50-10.00) X 10*3/uL RBC (4.10-5.20) X 10*6/uL Hgb (12.0-15.0) g/dL Hct (37.2-46.3) % MCV (80.0-97.0) FL MCH (27.0-32.0) pg MCHC (32.0-37.0) g/dL RDW (11.5-14.5) % NRBC/100 WBC Diff (0.00-0.01) X 10*3/uL Hypochromasia (manual) (None Seen) Anisocytosis (manual) (None Seen) Microcytosis (manual) (None Seen) Crenated Cell (None Seen) Elliptocytes (None Seen) Schistocytes (None Seen) Sodium (137-145) mmol/L BUN (7-17) mg/dL Glucose (74-99) mg/dL POC Glucose (mg/dL) 188 H (70-110) mg/dL AST (14-36) U/L ALT (4-34) U/L Alkaline Phosphatase (38-126) U/L Total Protein (6.3-8.2) g/dL Albumin (3.5-5.0) g/dL Free Cool LC, Quant (0.33-1.94) mg/dL Free Lambda LC, Quant (0.57-2.63) mg/dL Microbiology - Last 24 Hours (Table) 04/12/25 17:18 Blood Culture - Preliminary Blood
--- NOTE | 2025-04-16 23:13 | P.PN ---
Subjective Progress Note Date: 04/16/25 This is a 79-year-old female who is a patient of Dr. Arreguin has past medical history of CAD status post CABG with HURT to LAD, SVG to left circumflex, SVG to RCA as well as PAD with prior stent angioplasty of bilateral iliac and bilateral SFA and right anterior tibial artery as well as hypertension, hyperlipidemia, carotid atherosclerosis, ischemic cardiomyopathy with reduced ejection fraction of 20-25%, valvular heart disease and CKD. Cardiology service has been consulted to evaluate for heart failure exacerbation. Patient was recently admitted to the hospital for acute on chronic exacerbation of heart failure. This time patient reports that she has been endorsing nausea, vomiting, diarrhea and fatigue since 4 days. Her symptoms started after she took [id number] stool softener for constipation. Patient reports that she is otherwise not endorsing any chest pain, shortness of breath or worsening leg edema and has been compliant with her cardiac medications. Patient denies abdominal pain, melena and hematochezia. She has recently follow-up with Dr. Arreguin in the office for a possible cardiac catheterization. However, patient has chronic anemia and was supposed to see atg java developer Dr. Jewell for further workup/clearance before cardiac catheterization. Her appointment is in early April. Her most recent echocardiogram was January 2025 which revealed EF of 20 to 25% with mild to moderate aortic insufficiency and moderate MR. Her previous echocardiogram was in May 2024 with LVEF of 55%. Labs and data at this admission: WBC 7.2, hemoglobin 8.2, hematocrit 28.4, platelet count 343, sodium 138, potassium 4.2, BUN 59, creatinine 1.02, lactic acid 3.8 improved to 1.6, AST 236, ALT 120, NT proBNP 86508, troponin I negative, lipase 217. EKG EKG shows normal sinus rhythm with normal axis deviation with left bundle branch block noted. Nonspecific ST-T wave changes also noted. Chest x-ray c shows no acute cardiopulmonary disease process. 04/14/2025 Patient was seen and examined sitting up in bed. Currently receiving iron infusion which has been ordered by hematology. Underwent abdominal ultrasound yesterday that showed thickened gallbladder arvizu with bladder sludge correlate for signs and symptoms of cholecystitis, hepatic steatosis. She continues to feel tired and has dyspnea upon walking to the bathroom but feeling somewhat better. She has no lower extremity edema. She has no complaints of chest discomfort. Vital signs are stable. Labs are pending from this morning. 04/15/2025 Patient was seen and examined resting comfortably in bed. She is feeling about the same as yesterday. Continues to feel tired. Continues to have mild dyspnea on exertion when walking to the bathroom. Hemoglobin this morning 8.1. Repeat BNP 9430. Bilirubin, AST and ALT are elevated. 04/16/2025 Patient seen and examined at bedside this a.m. She still appears mildly hypervolemic. Consider discharging next 24 to 48 hours to [facility]. Physical examination: Vital signs reviewed General: non toxic, no distress Head: atraumatic, normocephalic, symmetric Neck: No cervical lymphadenopathy, trachea midline, supple Cardiovascular: S1S2 reg, systolic murmur, positive dorsalis pedis pulse bilateral, 1+ bilateral lower extremity edema Lungs: Bibasilar crackles with no wheezing or rales. No use of accessory muscles Abdominal: soft, nontender to palpation, no guarding Neuro: Awake, alert, oriented x 4 Assessment: #Mild acute on chronic HFrEF with EF of 20 to 25% #Dilated ischemic cardiomyopathy #Transaminitis #History of COPD with prior CABG #History of PAD with prior stenting #Hypertension #Hyperlipidemia #Carotid atherosclerosis #Chronic kidney disease #Iron deficiency anemia Plan: From cardiology's perspective we will discontinue Plavix, continue aspirin. Continue to monitor renal function, electrolytes and hemoglobin. Patient will require further evaluation of elevated bili, AST and ALT. Will defer to primary for this. We will continue to follow the patient and provide further recommendations accordingly. Objective - Vital Signs Vital signs: Vital Signs Temp 98.1 F 04/16/25 14:00 Pulse 79 04/16/25 14:00 Resp 16 04/16/25 14:00 BP 106/68 04/16/25 14:00 Pulse Ox 98 04/16/25 14:00 FiO2 Intake & Output 04/16/25 04/16/25 04/17/25 06:59 18:59 06:59 Other: Voiding Method Toilet Toilet # Voids 3 1 - Labs CBC & Chem 7: 04/16/25 03:26 04/16/25 03:26 Labs: Abnormal Lab Results - Last 24 Hours (Table) 04/14/25 04/14/25 04/16/25 Range/Units 03:34 03:34 03:26 WBC (4.50-10.00) X 10*3/uL RBC (4.10-5.20) X 10*6/uL Hgb (12.0-15.0) g/dL Hct (37.2-46.3) % MCV (80.0-97.0) FL MCH (27.0-32.0) pg MCHC (32.0-37.0) g/dL RDW (11.5-14.5) % NRBC/100 WBC Diff (0.00-0.01) X 10*3/uL Hypochromasia (manual) (None Seen) Anisocytosis (manual) (None Seen) Microcytosis (manual) (None Seen) Crenated Cell (None Seen) Elliptocytes (None Seen) Schistocytes (None Seen) Sodium 134 L (137-145) mmol/L BUN 31 H (7-17) mg/dL Glucose 114 H (74-99) mg/dL POC Glucose (mg/dL) (70-110) mg/dL AST 502 H (14-36) U/L ALT 317 H (4-34) U/L Alkaline Phosphatase 142 H (38-126) U/L Total Protein 6.0 L (6.3-8.2) g/dL Albumin 2.9 L (3.5-5.0) g/dL RBC Folate 879 H (280 - 791) ng/mL Free [place] LC, Quant 4.72 H (0.33-1.94) mg/dL Free Lambda LC, Quant 5.38 H (0.57-2.63) mg/dL 04/16/25 04/16/25 04/16/25 Range/Units 03:26 06:23 11:02 WBC 11.43 H (4.50-10.00) X 10*3/uL RBC 3.82 L (4.10-5.20) X 10*6/uL Hgb 7.9 L (12.0-15.0) g/dL Hct 29.0 L (37.2-46.3) % MCV 75.9 L (80.0-97.0) FL MCH 20.7 L (27.0-32.0) pg MCHC 27.2 L (32.0-37.0) g/dL RDW 23.2 H (11.5-14.5) % NRBC/100 WBC Diff 0.56 H (0.00-0.01) X 10*3/uL Hypochromasia (manual) 2+ A (None Seen) Anisocytosis (manual) 3+ A (None Seen) Microcytosis (manual) 2+ A (None Seen) Crenated Cell 2+ A (None Seen) Elliptocytes 2+ A (None Seen) Schistocytes 2+ A (None Seen) Sodium (137-145) mmol/L BUN (7-17) mg/dL Glucose (74-99) mg/dL POC Glucose (mg/dL) 123 H 188 H (70-110) mg/dL AST (14-36) U/L ALT (4-34) U/L Alkaline Phosphatase (38-126) U/L Total Protein (6.3-8.2) g/dL Albumin (3.5-5.0) g/dL RBC Folate (280 - 791) ng/mL Free [place] LC, Quant (0.33-1.94) mg/dL Free Lambda LC, Quant (0.57-2.63) mg/dL 04/16/25 04/16/25 Range/Units 16:25 20:39 WBC (4.50-10.00) X 10*3/uL RBC (4.10-5.20) X 10*6/uL Hgb (12.0-15.0) g/dL Hct (37.2-46.3) % MCV (80.0-97.0) FL MCH (27.0-32.0) pg MCHC (32.0-37.0) g/dL RDW (11.5-14.5) % NRBC/100 WBC Diff (0.00-0.01) X 10*3/uL Hypochromasia (manual) (None Seen) Anisocytosis (manual) (None Seen) Microcytosis (manual) (None Seen) Crenated Cell (None Seen) Elliptocytes (None Seen) Schistocytes (None Seen) Sodium (137-145) mmol/L BUN (7-17) mg/dL Glucose (74-99) mg/dL POC Glucose (mg/dL) 222 H 180 H (70-110) mg/dL AST (14-36) U/L ALT (4-34) U/L Alkaline Phosphatase (38-126) U/L Total Protein (6.3-8.2) g/dL Albumin (3.5-5.0) g/dL RBC Folate (280 - 791) ng/mL Free [place] LC, Quant (0.33-1.94) mg/dL Free Lambda LC, Quant (0.57-2.63) mg/dL Microbiology - Last 24 Hours (Table) 04/12/25 17:18 Blood Culture - Preliminary Blood
[2025-04-17 06:25] LABS: Glucose,Whole Blood 84 mg/dL (70-110)
[2025-04-17 08:05] LABS: Basophils # (A) 0.06 X 10*3/uL (0.00-0.10); Basophils % (A) 0.5 %; Eosinophils # (A) 0.05 X 10*3/uL (0.04-0.35); Eosinophils % (A) 0.4 %; HCT 31.0 % (37.2-46.3); HGB 8.5 g/dL (12.0-15.0); Immature Grans, Automated 1.10 %; Lymphocytes # (A) 1.33 X 10*3/uL (0.90-5.00); Lymphocytes % (A) 11.7 %; MCH 21.1 pg (27.0-32.0); MCHC 27.4 g/dL (32.0-37.0); MCV 76.9 FL (80.0-97.0); Monocytes # (A) 1.07 X 10*3/uL (0.20-1.00); Monocytes % (A) 9.4 %; NRBC Per 100 WBC 0.79 X 10*3/uL (0.00-0.01); Neutrophils # (A) 8.71 X 10*3/uL (1.80-7.70); Neutrophils % (A) 76.9 %; Platelet Count 256 X 10*3/uL (140-440); RBC 4.03 X 10*6/uL (4.10-5.20); RDW 24.9 % (11.5-14.5); WBC 11.35 X 10*3/uL (4.50-10.00)
[2025-04-17 08:34] LABS: Anion Gap 20.00 mmol/L (4.00-12.00); BUN/Creat Ratio 29.45 Ratio (12.00-20.00); Blood Urea Nitrogen 32.4 mg/dL (9.0-27.0); Carbon Dioxide 17.0 mmol/L (21.6-31.8); Chloride 98 mmol/L (96-109); Glucose 90 mg/dL (70-110); Potassium 4.5 mmol/L (3.5-5.5); Sodium 135 mmol/L (135-145)
[2025-04-17 08:35] LABS: ALT 584 U/L (8-44); AST 784 U/L (13-35); Albumin 3.1 g/dL (3.8-4.9); Albumin/Globulin Ratio 1.11 Ratio (1.60-3.17); Alkaline Phosphatase 131 U/L (41-126); Calcium 8.7 mg/dL (8.7-10.3); Globulin 2.8 g/dL (1.6-3.3); Total Protein 5.9 g/dL (6.2-8.2)
[2025-04-17 10:40] LABS: Albumin 2.86 g/dL (3.80-4.90); Gamma Globulin 1.09 g/dL (0.70-1.50)
[2025-04-17 11:31] LABS: Glucose,Whole Blood 102 mg/dL (70-110)
--- NOTE | 2025-04-17 13:16 | P.PN ---
Subjective Progress Note Date: 04/17/25 This is a 79-year-old female who is a patient of Dr. Arreguin has past medical history of CAD status post CABG with HURT to LAD, SVG to left circumflex, SVG to RCA as well as PAD with prior stent angioplasty of bilateral iliac and bilateral SFA and right anterior tibial artery as well as hypertension, hyperlipidemia, carotid atherosclerosis, ischemic cardiomyopathy with reduced ejection fraction of 20-25%, valvular heart disease and CKD. Cardiology service has been consulted to evaluate for heart failure exacerbation. Patient was recently admitted to the hospital for acute on chronic exacerbation of heart failure. This time patient reports that she has been endorsing nausea, vomiting, diarrhea and fatigue since 4 days. Her symptoms started after she took [id number] stool softener for constipation. Patient reports that she is otherwise not endorsing any chest pain, shortness of breath or worsening leg edema and has been compliant with her cardiac medications. Patient denies abdominal pain, melena and hematochezia. She has recently follow-up with Dr. Arreguin in the office for a possible cardiac catheterization. However, patient has chronic anemia and was supposed to see business supervisor Dr. Jewell for further workup/clearance before cardiac catheterization. Her appointment is in early April. Her most recent echocardiogram was January 2025 which revealed EF of 20 to 25% with mild to moderate aortic insufficiency and moderate MR. Her previous echocardiogram was in May 2024 with LVEF of 55%. Labs and data at this admission: WBC 7.2, hemoglobin 8.2, hematocrit 28.4, platelet count 343, sodium 138, potassium 4.2, BUN 59, creatinine 1.02, lactic acid 3.8 improved to 1.6, AST 236, ALT 120, NT proBNP 08479, troponin I negative, lipase 217. EKG EKG shows normal sinus rhythm with normal axis deviation with left bundle branch block noted. Nonspecific ST-T wave changes also noted. Chest x-ray c shows no acute cardiopulmonary disease process. 04/14/2025 Patient was seen and examined sitting up in bed. Currently receiving iron infusion which has been ordered by hematology. Underwent abdominal ultrasound yesterday that showed thickened gallbladder arvizu with bladder sludge correlate for signs and symptoms of cholecystitis, hepatic steatosis. She continues to feel tired and has dyspnea upon walking to the bathroom but feeling somewhat better. She has no lower extremity edema. She has no complaints of chest discomfort. Vital signs are stable. Labs are pending from this morning. 04/15/2025 Patient was seen and examined resting comfortably in bed. She is feeling about the same as yesterday. Continues to feel tired. Continues to have mild dyspnea on exertion when walking to the bathroom. Hemoglobin this morning 8.1. Repeat BNP 9430. Bilirubin, AST and ALT are elevated. 04/16/2025 Patient seen and examined at bedside this a.m. She still appears mildly hypervolemic. Consider discharging next 24 to 48 hours to [facility]. 04/17/2025 Patient seen and examined. She is maintained on Lasix 40 mg in the morning 20 mg in the afternoon. Patient's breathing seems to be stable with this. Orthostatic vital signs were negative. Blood pressure 103/67, heart rate 90, pulse ox 96% on room air. Repeat blood work reveals hemoglobin 8.5, WBC 11.3, BUN 32 creatinine 1.1, potassium 4.5. Liver function tests are worsening with AST 784, ALT 584 and alkaline phosphatase 131. Echocardiogram reveals EF of 50 to 20%, severe pulmonary hypertension with RVSP 39 mmHg, moderate mitral regurgitation, moderate aortic regurgitation, moderate to severe tricuspid regurgitation, trace pericardial effusion. Patient is adamant that she is going to go home with hospice today. She states that she is feeling crappy due to shortness of breath, fatigue. Physical examination: Vital signs reviewed General: non toxic, no distress Head: atraumatic, normocephalic, symmetric Neck: No cervical lymphadenopathy, trachea midline, supple Cardiovascular: S1S2 reg, systolic murmur, positive dorsalis pedis pulse bilateral, 1+ bilateral lower extremity edema Lungs: Bibasilar crackles with no wheezing or rales. No use of accessory muscles Abdominal: soft, nontender to palpation, no guarding Neuro: Awake, alert, oriented x 4 Assessment: #Mild acute on chronic HFrEF with EF of 20 to 25% #Dilated ischemic cardiomyopathy #Transaminitis #History of COPD with prior CABG #History of PAD with prior stenting #Hypertension #Hyperlipidemia #Carotid atherosclerosis #Chronic kidney disease #Iron deficiency anemia Plan: From cardiology's perspective we will discontinue Plavix, continue aspirin. Continue patient's home dose of diuretics with Lasix 40 mg in the morning 20 mg in the afternoon Continue to monitor renal function, electrolytes and hemoglobin. Continue workup for elevated liver function test Cardiology will sign off this case and follow on an as-needed basis. Please reconsult for any new concerns. Patient may follow-up in the office in one to 2 weeks. Nurse practitioner note has been reviewed, I agree with documented findings and plan of care. Patient was seen and examined. Objective - Vital Signs Vital signs: Vital Signs Temp 97.3 F L 04/17/25 07:15 Pulse 90 04/17/25 07:15 Resp 16 04/17/25 07:15 BP 103/67 04/17/25 07:15 Pulse Ox 96 04/17/25 07:15 FiO2 Intake & Output 04/16/25 04/17/25 04/17/25 18:59 06:59 18:59 Weight 61.1 kg Other: Voiding Method Toilet # Voids 1 3 - Labs CBC & Chem 7: 04/17/25 04:00 04/17/25 03:48 Labs: Abnormal Lab Results - Last 24 Hours (Table) 04/14/25 04/14/25 04/16/25 Range/Units 03:34 03:34 16:25 WBC (4.50-10.00) X 10*3/uL RBC (4.10-5.20) X 10*6/uL Hgb (12.0-15.0) g/dL Hct (37.2-46.3) % MCV (80.0-97.0) FL MCH (27.0-32.0) pg MCHC (32.0-37.0) g/dL RDW (11.5-14.5) % Immature Gran # (0.00-0.04) X 10*3/uL Neutrophils # (1.80-7.70) X 10*3/uL Monocytes # (0.20-1.00) X 10*3/uL NRBC/100 WBC Diff (0.00-0.01) X 10*3/uL Carbon Dioxide (21.6-31.8) mmol/L Anion Gap (4.00-12.00) mmol/L BUN (9.0-27.0) mg/dL Est GFR (CKD-EPI) (>=60) BUN/Creatinine Ratio (12.00-20.00) Ratio POC Glucose (mg/dL) 222 H (70-110) mg/dL AST (13-35) U/L ALT (8-44) U/L Alkaline Phosphatase (41-126) U/L Total Protein (6.2-8.2) g/dL Albumin (3.8-4.9) g/dL Albumin (PEP) 2.86 L (3.80-4.90) g/dL Albumin/Globulin Ratio (1.60-3.17) Ratio Methylmalonic Acid 0.97 H (<0.40) umol/L RBC Folate 879 H (280 - 791) ng/mL Free Covel LC, Quant 4.72 H (0.33-1.94) mg/dL Free Lambda LC, Quant 5.38 H (0.57-2.63) mg/dL 04/16/25 04/17/25 04/17/25 Range/Units 20:39 03:48 04:00 WBC 11.35 H (4.50-10.00) X 10*3/uL RBC 4.03 L (4.10-5.20) X 10*6/uL Hgb 8.5 L (12.0-15.0) g/dL Hct 31.0 L (37.2-46.3) % MCV 76.9 L (80.0-97.0) FL MCH 21.1 L (27.0-32.0) pg MCHC 27.4 L (32.0-37.0) g/dL RDW 24.9 H (11.5-14.5) % Immature Gran # 0.13 H (0.00-0.04) X 10*3/uL Neutrophils # 8.71 H (1.80-7.70) X 10*3/uL Monocytes # 1.07 H (0.20-1.00) X 10*3/uL NRBC/100 WBC Diff 0.79 H (0.00-0.01) X 10*3/uL Carbon Dioxide 17.0 L (21.6-31.8) mmol/L Anion Gap 20.00 H (4.00-12.00) mmol/L BUN 32.4 H (9.0-27.0) mg/dL Est GFR (CKD-EPI) 51 L (>=60) BUN/Creatinine Ratio 29.45 H (12.00-20.00) Ratio POC Glucose (mg/dL) 180 H (70-110) mg/dL AST 784 H (13-35) U/L ALT 584 H (8-44) U/L Alkaline Phosphatase 131 H (41-126) U/L Total Protein 5.9 L (6.2-8.2) g/dL Albumin 3.1 L (3.8-4.9) g/dL Albumin (PEP) (3.80-4.90) g/dL Albumin/Globulin Ratio 1.11 L (1.60-3.17) Ratio Methylmalonic Acid (<0.40) umol/L RBC Folate (280 - 791) ng/mL Free Covel LC, Quant (0.33-1.94) mg/dL Free Lambda LC, Quant (0.57-2.63) mg/dL
[2025-04-17] MEDS: FUROSEMIDE 20 MG TAB PO SCH (15:39)
[2025-04-17] MEDS ORDERED: BUMETANIDE 1 MG TAB PO SCH (16:00)
[2025-04-17 16:56] LABS: Glucose,Whole Blood 72 mg/dL (70-110)
[2025-04-17 20:12] LABS: Glucose,Whole Blood 104 mg/dL (70-110)
[2025-04-17 20:51] LABS: Glucose,Whole Blood 100 mg/dL (70-110)
[2025-04-17] MEDS: ALPRAZolam 0.25 MG TAB PO PRN (23:59)
[2025-04-18 06:14] LABS: Glucose,Whole Blood 117 mg/dL (70-110)
[2025-04-18 07:58] VITALS: BP 130/76; PULSE 96; RESP 15; TEMP 97.7
[2025-04-18] MEDS: FUROSEMIDE 40 MG TAB PO SCH (09:15)
--- NOTE | 2025-04-18 09:47 | P.PN ---
Subjective Progress Note Date: 04/17/25 Pleasant 79-year-old female follow-up with PCP Dr. Karley Winslow. Medical condition include CHF with diastolic dysfunction, essential hypertension, CAD with coronary bypass, secondary pulmonary hypertension interstitial lung disease, COPD, PAD with stents, diabetes, chronic kidney disease, hyperlipidemia hypothyroid essential hypertension. Patient for a week was very constipated. No bowel movement. At the baseline normally has 1 maybe 2 bowel movements a week. She was given a laxative by the visiting nurse. Had a large bowel movement very hard followed by some diarrhea. Subsequently patient became very weak. No vomited. Decreased appetite. No fever no chills. Denies abdominal pain. Patient has had a very dry mouth. April 14: Feels tired-this morning. Did not sleep too well. Breathing stable. Dry mouth. Was given gentle hydration overnight. Does not have too much of an appetite. Does not like much of the hospital food. Will have family bring in the food. Accu-Cheks fluctuating. Increase Prandin to 2 mg 3 times daily with meals April 15: Did go to the bathroom. Feeling tired. Discussed at length about increasing activity. Breathing stable. at the bedside. Accu-Cheks are better after adding Prandin. Noticed increase in LFTs. Order acute hepatitis profile. DC Tylenol Up in chair. Activity as tolerated. 04/16/2025 Patient states that she is feeling tired. Also having exertional dyspnea when ambulating to the bathroom. No complaints of chest pain. No leg pain. Pulse ox 98% on room air. Afebrile. No cough or sputum production. Laboratory showed WBC 11.4 hemoglobin 7.9 and MCV 75.9 and platelets 288. Patient received IV iron today. Sodium 134 potassium 4.1 chloride 98 bicarb is 22 BUN 31 and creatinine 0.91 blo od sugar 114 Liver enzymes are still elevated. AST 502 ALT 317 and alk phos 142 and albumin 2.9. Patient is on IV ceftriaxone for possible urinary tract infection. Also on Lasix p.o. 2D echocardiogram showed LVEF 15 to 20%. Dilated LV with globally reduced systolic function. No evidence of LV thrombus. Paradoxical septal motion. Dilated RV with evidence of severe pulmonary hypertension with RVSP 39 mmHg. Moderate MR, moderate AR and moderate to severe TR. Trace pericardial effusion 04/17/2025 Patient is seen and evaluated in follow-up today with at the bedside. All conversations are being recorded by the and apparently this is because multiple family members and children want to know what is going on and they are not at the bedside. Discussed that this is a HIPAA violation and should not be recording. Patient is asking for hospice as she reports she does not want to go through all of this medical treatment anymore. Patient is reporting that she is having difficulty with swallowing and is refusing medications and refusing to eat and will consult speech for swallow evaluation and further assessment. Patient being followed by cardiology maintained on current medication regimen recommending outpatient follow-up. Patient also is maintained on IV antibiotics for urinary tract infection with culture showing Citrobacter with sensitivity. Blood cultures are negative. Patient is significantly weak and when asked if worsening with the working with PT/OT marko de la torre, patient reports she refused to work with them. Patient has not been up and out of the bed much since admission. Patient also is extremely frustrated and feels she is not being cared for. When asked if patient is having any suicidal or homicidal thoughts, patient denies and this was confirmed with her . When asking if at the bedside was also okay with hospice, he stated, "this is her decision and I do not have a say so, so I am going along with her wishes." Case management is following and will place a hospice informational referral. Review of systems: Constitutional: reports of fatigue, no fever, or chills Cardiovascular: No reports of chest pain or palpitations Respiratory: reports of shortness of breath on occasion GI: No reports of nausea, vomiting, or diarrhea, reports difficulty swallowing and refusing to eat or take medications : No reports of dysuria or retention Neurovascular: reports of generalized weakness All medications have been reviewed Social history: Alcohol occasionally. Lives with her . Smoked for 40 years 2 packs a day stopped in 2003 Physical examination: GENERAL: This is an 79-year-old female who is laying in bed, awake, alert and oriented x 3, well-developed, elderly appearing, flat affect BMI 24.6 EYES: Pupils equal. Conjunctiva normal. HEENT: External appearance of nose and ears normal, oral cavity grossly normal. Decreased hearing NECK: JVD raised; masses not palpable. HEART: First and second heart sounds are normal; no edema. LUNGS: Respiratory rate is normal, decreased breath sounds bilaterally, faint crackles at the bases appreciated ABDOMEN: Soft, nontender, liver spleen not palpable, no masses palpable. PSYCH: Alert and oriented x3; mood and affect tired, flat MUSCULOSKELETAL:No Clubbing/cyanosis;muscles-grossly intact. OA Neurological: Cranial nerves grossly intact. Power sensation grossly intact, diffusely weak INVESTIGATIONS, reviewed in the clinical context: April 15: White count 9.3 hemoglobin 8.1 platelets 298 potassium 3.4 total bilirubin 1.5 AST 49 ALT 278 April 14: White count 7.1 hemoglobin 7.5 platelets 285 Liver ultrasound: Thickened gallbladder arvizu with bladder sludge. Hepatic steatosis. April 12, 2025: White count 7.2 hemoglobin 8.2 platelets 343 sodium 138 potassium 4.2. 59 creatinine 1.02 Lactic acid 5.1 repeat 3.9 AST 236 ALT 120 troponin I 0.022 proBNP 56862 UA glucose 4+ negative for nitrite Serum acetone negative Chest x-ray film personally reviewed by me-[email or web address] CT abdomen pelvis: Circumferential wall thickening of the urinary bladder. Colonic diverticulosis. Severe atherosclerotic disease without evidence branches. Bilateral common iliac artery stents and right superficial femoral artery stent identified. Patent. Severe stenosis involving the origin of the proximal SFA secondary to calcified and noncalcified plaque. At least moderate stenosis of the aortic branches secondary to calcified plaque. Basilar pulmonary fibrotic changes. Previous investigations 2D echo [February 22, 2025] EF 20-25%. Aortic sclerosis with moderate aortic insufficiency. Moderate MR. Cardiac catheterization [May 30, 2024]: Occluded left main and subtotally occluded RCA. Patent HURT to LAD and patent SVG to left circumflex and patent SVG to RCA. Significant gradient across right iliac artery. Renal artery duplex: Heavily calcified atherosclerotic plaque especially mid and distal abdominal aorta Limited visualization of the left kidney. Velocities in the right kidney renal artery elevated but the ratio appears normal. Assessment and plan: - Acute medical asthenia following decreased appetite. Patient was constipated for 1 week. Followed by a combination for laxative. Had a massive bowel movement with very hard stool. Followed by diarrhea. Also probable element of cardiac cachexia Was given gentle hydration overnight initially. - Acute on chronic congestive heart failure from ischemic systolic dysfunction EF 15 to 20%. Dilated ischemic cardiomyopathy High resting BMP from severe systolic dysfunction. Farxiga. Lasix. Toprol-XL. Repeat 2D echo: Report as above. Cardiology following recommending outpatient follow-up and continuing current regimen -Essential hypertension Toprol-XL 50 mg a day -CAD with a prior history of stent and bypass Aspirin. DC Plavix. Lipitor. Toprol-XL Cardiac catheterization on May 2024 did not show any stenosis. Patent stent and bypass. [employer] Dr. 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 -COPD in a previous smoker DuoNeb, as needed - Transaminitis. Patient has elevated AST ALT and alk phos. Bilirubin within normal limits. Ultrasound abdominal showed hepatic steatosis. No evidence of obstruction. Acute hepatitis panel negative. Continue to monitor LFTs. Lipitor is on hold. - Hard of hearing - Colonic diverticulosis, asymptomatic - Lactic acidosis, type II from decreased oral intake clinical dehydration initially -PAD with stent to both the legs in December 2024, with Dr. Jeffries Aspirin, and Zetia. DC Plavix. - Questionable gallstones -Diabetes mellitus type 2, uncontrolled on oral hypoglycemic Jardiance,, metformin, Prandin increased to 2 mg, 3 times a day with meals Follow Accu-Cheks and sliding scale Glucerna shake -Primary osteoarthritis Tylenol is on hold due to elevated liver enzymes. -Chronic kidney disease stage III likely nephrosclerosis and diabetic nephropathy Continue to monitor renal function -Acute urinary tract infection, present on admission, cultures finalized with Citrobacter with sensitivities -Hyperlipidemia Lipitor, Zetia -Hypothyroid Synthroid 112 mcg a day -Essential hypertension Lopressor, -GI prophylaxis -DVT prophylaxis -No code Plan: Lengthy discussion was had with patient and at the bedside who was also recording all conversation, discussed hospice as patient is requesting and reports she does not want to continue with any further hospital care. Patient and feel frustrated as they have not been cared for and they feel no one is taking care of her or helping her. Discussion was had about treatment plan and patient has been refusing most treatments and now including refusing to eat or drink and refusing to take any medications. Patient reports she is having difficulty with swallowing and has been ongoing for quite some time and she feels that no one has bothered to help her with this. Discussed with her about consulting speech for swallow evaluation and further assessment. Apparently later in the discussion when nursing staff contacted speech, patient refused to see speech therapy. Patient also refused to work with physical therapy Hospice informational consult was placed and [facility] consulted. Patient is discussing wanting to go to hospice house and further arrangements to be discussed with liaison. Case management is following awaiting further recommendations and discussions with family. Due to multiple complex medical issues, overall prognosis is extremely guarded The impression and plan of care has been dictated by Tova Kerr Nurse Pract itioner as directed. Dr. Janine MD I have performed a history and examination and MDM of this patient, discussed the same with the dictator, and agree with the dictator's assessment and plan as written ,documented as a scribe. Based on total visit time, I have performed more than 50% of the visit. Objective - Vital Signs Vital signs: Vital Signs Temp 98.2 F 04/17/25 19:45 Pulse 98 04/17/25 19:45 Resp 17 04/17/25 19:45 BP 121/69 04/17/25 19:45 Pulse Ox 96 04/17/25 19:45 FiO2 Intake & Output 04/17/25 04/17/25 04/18/25 06:59 18:59 06:59 Weight 61.1 kg Other: Voiding Method Toilet # Voids 3 3 # Bowel Movements 1 - Labs CBC & Chem 7: 04/17/25 04:00 04/17/25 03:48 Labs: Abnormal Lab Results - Last 24 Hours (Table) 04/14/25 04/14/25 04/17/25 Range/Units 03:34 03:34 03:48 WBC (4.50-10.00) X 10*3/uL RBC (4.10-5.20) X 10*6/uL Hgb (12.0-15.0) g/dL Hct (37.2-46.3) % MCV (80.0-97.0) FL MCH (27.0-32.0) pg MCHC (32.0-37.0) g/dL RDW (11.5-14.5) % Immature Gran # (0.00-0.04) X 10*3/uL Neutrophils # (1.80-7.70) X 10*3/uL Monocytes # (0.20-1.00) X 10*3/uL NRBC/100 WBC Diff (0.00-0.01) X 10*3/uL Carbon Dioxide 17.0 L (21.6-31.8) mmol/L Anion Gap 20.00 H (4.00-12.00) mmol/L BUN 32.4 H (9.0-27.0) mg/dL Est GFR (CKD-EPI) 51 L (>=60) BUN/Creatinine Ratio 29.45 H (12.00-20.00) Ratio AST 784 H (13-35) U/L ALT 584 H (8-44) U/L Alkaline Phosphatase 131 H (41-126) U/L Total Protein 5.9 L (6.2-8.2) g/dL Albumin 3.1 L (3.8-4.9) g/dL Albumin (PEP) 2.86 L (3.80-4.90) g/dL Albumin/Globulin Ratio 1.11 L (1.60-3.17) Ratio Methylmalonic Acid 0.97 H (<0.40) umol/L 04/17/25 Range/Units 04:00 WBC 11.35 H (4.50-10.00) X 10*3/uL RBC 4.03 L (4.10-5.20) X 10*6/uL Hgb 8.5 L (12.0-15.0) g/dL Hct 31.0 L (37.2-46.3) % MCV 76.9 L (80.0-97.0) FL MCH 21.1 L (27.0-32.0) pg MCHC 27.4 L (32.0-37.0) g/dL RDW 24.9 H (11.5-14.5) % Immature Gran # 0.13 H (0.00-0.04) X 10*3/uL Neutrophils # 8.71 H (1.80-7.70) X 10*3/uL Monocytes # 1.07 H (0.20-1.00) X 10*3/uL NRBC/100 WBC Diff 0.79 H (0.00-0.01) X 10*3/uL Carbon Dioxide (21.6-31.8) mmol/L Anion Gap (4.00-12.00) mmol/L BUN (9.0-27.0) mg/dL Est GFR (CKD-EPI) (>=60) BUN/Creatinine Ratio (12.00-20.00) Ratio AST (13-35) U/L ALT (8-44) U/L Alkaline Phosphatase (41-126) U/L Total Protein (6.2-8.2) g/dL Albumin (3.8-4.9) g/dL Albumin (PEP) (3.80-4.90) g/dL Albumin/Globulin Ratio (1.60-3.17) Ratio Methylmalonic Acid (<0.40) umol/L
[2025-04-18 11:13] LABS: Glucose,Whole Blood 177 mg/dL (70-110)
--- NOTE | 2025-04-18 14:20 | P.DS ---
Providers Date of admission: 04/12/25 19:35 Expected date of discharge: 04/18/25 Attending physician: Daryl Briceno Consults: 04/12/25 20:44 Consult Physician Urgent Consulting Provider: [facility] Consult Reason/Comments: CHF Do you want consulting provider notified?: Yes, Notify in am 04/13/25 09:54 Consult Physician Routine Consulting Provider: Aung Jewell Consult Reason/Comments: Iron deficiency anemia Do you want consulting provider notified?: Yes Primary care physician: Karley Winslow MD Hospital Course: Final diagnosis - Acute medical asthenia following decreased appetite. -constipation, chronic and ongoing although improved - cardiac cachexia - Acute on chronic congestive heart failure from ischemic systolic dysfunction EF 15 to 20%. 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 -COPD in a previous smoker - Transaminitis. - Hard of hearing - Colonic diverticulosis, asymptomatic - Lactic acidosis, type II from decreased oral intake clinical dehydration initially -PAD with stent to both the legs in December 2024, with Dr. Jeffries - Questionable gallstones -Diabetes mellitus type 2, uncontrolled on oral hypoglycemic -Primary osteoarthritis -Chronic kidney disease stage III likely nephrosclerosis and diabetic nephropathy -Acute urinary tract infection, present on admission, cultures finalized with Citrobacter with sensitivities -Hyperlipidemia -Hypothyroid -Essential hypertension -GI prophylaxis -DVT prophylaxis -No code Discharge disposition Patient is being discharged in a stable condition with guarded prognosis to [facility]. Patient will follow-up with Dr. Winslow in the outpatient setting upon discharge. Total time taken is greater than 35 minutes. Hospital course This is a pleasant 79-year-old female who follows with Dr. Karley Winslow in the outpatient setting with a significant past medical history of CHF with diastolic dysfunction, essential hypertension, coronary artery disease with previous CABG, pulmonary hypertension with interstitial lung disease, COPD, PAD with stents, diabetes, chronic kidney disease, hyperlipidemia hypothyroid essential hypertension. Patient presented to the hospital initially with abdominal pain with constipation and no bowel movements and has been having difficulty with decreased appetite and extreme weakness. Patient was also noted to have an acute urinary tract infection with Citrobacter with sensitivities maintained on antibiotics. Patient was evaluated by cardiology with adjustments to medications and maintained on diuresis as well as IV antibiotics. Patient has completed ceftriaxone and cardiology has signed off recommending continuing current regimen and most recent echo showing an EF of 15 to 20%. Patient with significant history and multiple hospitalizations and clinical decline discussed hospice and wants to go to hospice house. Patient has been accepted and there is a bed available and family is respecting patient's wishes as she feels she does not want to do this anymore and does not want to have continued further treatment on what she feels is not helping her. Patient did have some difficulty with swallowing and discussed at length with family along with patient about overall poor prognosis given significant comorbidities and will continue on palliative foods and also broths. Attempted to discuss possible speech evaluation although she refused and is taking in some broth today. Patient with significant weakness and is requiring assistance and does have family support. Patient did not want to return home on hospice and wants to go to hospice house. All consultations have signed off and again given significant comorbidities, overall prognosis is poor. Please refer to other consultation notes for further HPI. Physical examination: GENERAL: This is an 79-year-old female who is laying in bed, awake, alert and oriented x 3, well-developed, elderly appearing, flat affect BMI 24.6 EYES: Pupils equal. Conjunctiva normal. HEENT: External appearance of nose and ears normal, oral cavity grossly normal. Decreased hearing NECK: JVD raised; masses not palpable. HEART: First and second heart sounds are normal; no edema. LUNGS: Respiratory rate is normal, decreased breath sounds bilaterally, faint crackles at the bases appreciated ABDOMEN: Soft, nontender, liver spleen not palpable, no masses palpable. PSYCH: Alert and oriented x3; mood and affect tired, flat MUSCULOSKELETAL:No Clubbing/cyanosis;muscles-grossly intact. OA Neurological: Cranial nerves grossly intact. Power sensation grossly intact, diffusely weak The impression and plan of care has been dictated by Tova Kerr, Nurse Practitioner as directed. Dr. Janine MD I have performed a history and examination and MDM of this patient, discussed the same with the dictator, and agree with the dictator's assessment and plan as written ,documented as a scribe. Based on total visit time, I have performed more than 50% of the visit. Patient Condition at Discharge: Stable Plan - Discharge Summary Discharge Rx Participant: No New Discharge Prescriptions: Continue RX: Ezetimibe [Zetia] 10 mg PO DAILY RX: Clopidogrel [Plavix] 75 mg PO DAILY #30 tab RX: Levothyroxine Sodium [Synthroid] 112 mcg PO AC-BRKFST RX: Empagliflozin [Jardiance] 25 mg PO DAILY RX: Repaglinide [Prandin] 1 mg PO AC-BID RX: Cyanocobalamin (Vitamin B-12) [Vitamin B-12] 1,000 mcg PO DAILY RX: Aspirin 81 mg PO DAILY tab RX: Pantoprazole Sodium 40 mg PO AC-BRKFST RX: Ergocalciferol [Vitamin D2 (1250 Mcg = 06978 Iu)] 1,250 mcg PO Q15D RX: Furosemide [Lasix] 40 mg PO DAILY #30 tab RX: ALPRAZolam [Xanax] 0.25 mg PO BID PRN PRN Reason: Anxiety RX: metFORMIN HCL ER [Glucophage XR] 500 mg PO DAILY RX: Atorvastatin Calcium 40 mg PO DAILY RX: Metoprolol Succinate [Toprol XL] 50 mg PO DAILY #30 tab RX: Furosemide [Lasix] 20 mg PO DAILY@1400 RX: Potassium Chloride ER [K-Dur 20] 10 meq PO BID Discharge Medication List RX: Ezetimibe [Zetia] 10 mg PO DAILY 01/31/14 [History] RX: Clopidogrel [Plavix] 75 mg PO DAILY #30 tab 12/06/18 [Rx] RX: Empagliflozin [Jardiance] 25 mg PO DAILY 11/13/19 [History] RX: Levothyroxine Sodium [Synthroid] 112 mcg PO AC-BRKFST 11/13/19 [History] RX: Cyanocobalamin (Vitamin B-12) [Vitamin B-12] 1,000 mcg PO DAILY 12/12/22 [History] RX: Repaglinide [Prandin] 1 mg PO AC-BID 12/12/22 [History] RX: Aspirin 81 mg PO DAILY tab 12/16/22 [Rx] RX: Pantoprazole Sodium 40 mg PO AC-BRKFST 01/01/23 [History] RX: metFORMIN HCL ER [Glucophage XR] 500 mg PO DAILY 05/28/24 [History] RX: Ergocalciferol [Vitamin D2 (1250 Mcg = 20069 Iu)] 1,250 mcg PO Q15D 06/09/24 [History] RX: Furosemide [Lasix] 40 mg PO DAILY #30 tab 06/12/24 [Rx] RX: Atorvastatin Calcium 40 mg PO DAILY 01/04/25 [History] RX: ALPRAZolam [Xanax] 0.25 mg PO BID PRN 02/20/25 [History] RX: Metoprolol Succinate [Toprol XL] 50 mg PO DAILY #30 tab 02/22/25 [Rx] RX: Furosemide [Lasix] 20 mg PO DAILY@1400 03/23/25 [History] RX: Potassium Chloride ER [K-Dur 20] 10 meq PO BID 04/12/25 [History] Follow up Appointment(s)/Referral(s): Berto Jeffries MD [STAFF PHYSICIAN] - 1 Week Karley Winslow MD [Primary Care Provider] - 1-2 days Discharge/Stand Alone Forms: Who Do I Call? Discharge Disposition: OTHER INSTITUTION NOT DEFINED
[2025-04-27] MEDS ORDERED: ERGOCALCIFEROL 1,250 MCG (50,000 IU) CAPSULE PO SCH (09:00)
== END 2025-04-18 14:30 | disposition home or self-care (01) | DRG 689 ==
LOC: EC 15:21 → 5NMEDONC 19:35 → 3SCARD 20:18 → 4SSUR 04-13 17:35
PROVIDERS: ADMIT Hospitalist; ATTEND Hospitalist
DX: N39.0 Urinary tract infection, site not specified (principal); I50.43 Acute on chronic combined systolic (congestive) and diastolic (congestive) heart failure; E87.20 Acidosis, unspecified; I42.0 Dilated cardiomyopathy; E88.A Wasting disease (syndrome) due to underlying condition; I27.23 Pulmonary hypertension due to lung diseases and hypoxia; I13.0 Hypertensive heart and chronic kidney disease with heart failure and stage 1 through stage 4 chronic kidney disease, or unspecified chronic kidney disease; E11.22 Type 2 diabetes mellitus with diabetic chronic kidney disease; J44.9 Chronic obstructive pulmonary disease, unspecified; N18.30 Chronic kidney disease, stage 3 unspecified; E03.9 Hypothyroidism, unspecified; I70.0 Atherosclerosis of aorta; D50.9 Iron deficiency anemia, unspecified; I08.3 Combined rheumatic disorders of mitral, aortic and tricuspid valves; I65.29 Occlusion and stenosis of unspecified carotid artery; K76.0 Fatty (change of) liver, not elsewhere classified; J84.9 Interstitial pulmonary disease, unspecified; E11.51 Type 2 diabetes mellitus with diabetic peripheral angiopathy without gangrene; E11.65 Type 2 diabetes mellitus with hyperglycemia; Z79.890 Hormone replacement therapy; I25.10 Atherosclerotic heart disease of native coronary artery without angina pectoris; E78.5 Hyperlipidemia, unspecified; E86.0 Dehydration; H91.90 Unspecified hearing loss, unspecified ear; I25.2 Old myocardial infarction; I25.5 Ischemic cardiomyopathy; I44.7 Left bundle-branch block, unspecified; K57.30 Diverticulosis of large intestine without perforation or abscess without bleeding; K59.09 Other constipation; M19.91 Primary osteoarthritis, unspecified site; R13.10 Dysphagia, unspecified; Z79.02 Long term (current) use of antithrombotics/antiplatelets; Z79.82 Long term (current) use of aspirin; Z79.84 Long term (current) use of oral hypoglycemic drugs; Z79.899 Other long term (current) drug therapy; Z82.49 Family history of ischemic heart disease and other diseases of the circulatory system; Z95.1 Presence of aortocoronary bypass graft; Z95.820 Peripheral vascular angioplasty status with implants and grafts; Z87.891 Personal history of nicotine dependence; Z88.5 Allergy status to narcotic agent; Z97.4 Presence of external hearing-aid; Z98.51 Tubal ligation status; Z98.42 Cataract extraction status, left eye; Z98.41 Cataract extraction status, right eye
CPT/HCPCS: 36415; 71046; 74177; 76705; 80053; 80074; 81001; 82009; 82607; 82747; 82784; 82803; 83605; 83690; 83735; 83880; 83883; 83921; 84100; 84165; 84484; 85025; 85027; 85610; 85730; 86334; 87040; 87077; 87086; 87186; 93005; 93308; 94760